=== PATIENT | male | born 1995 | race Two or more races ===

== ENCOUNTER 2016-08-30 17:35 | Inpatient (IN) | payer SELFPAY ==
[~2016-08-30] VITALS: Ht 167.6 cm; Wt 76.3 kg
--- NOTE | 2016-08-30 19:19 | PHYS DOC ---
Past Medical History Past Medical History: No Pertinent History Past Surgical History: No Surgical History Adult General Chief Complaint Chief Complaint: ABDOMINAL PAIN HPI HPI Patient is a 20 year old female who presents with abdominal pain. Patient reports earlier today he was about to have a bowel movement when he started having generalized abdominal pain, feeling like "he was ready to blow". Currently having significant sharp pain mostly in his lower abdomen. He also reports having a fever. He denies any nausea or vomiting. No diarrhea, no blood in stool. No prior similar episodes. He has tried some ibuprofen for the pain with partial relief. Review of Systems Review of Systems Constitutional: Fever Eyes: Denies change in visual acuity or eye pain HENT: Denies nasal congestion or sore throat Respiratory: Denies cough or shortness of breath Cardiovascular: Denies chest pain GI: Lower abdominal pain. Denies nausea, vomiting, bloody stools or diarrhea : Denies dysuria or hematuria Musculoskeletal: Denies back pain or joint pain Integument: Denies rash or skin lesions Neurologic: Denies headache, focal weakness or sensory changes Current Medications Current Medications Current Medications Medications (Trade) Dose Ordered Sig/Poncho Start Time Stop Time Status Last Admin Dose Admin Iohexol (Omnipaque 300 Mg/ml) 75 ml 1X ONCE 08/30/16 20:00 08/30/16 20:01 DC 08/30/16 20:57 75 ML Morphine Sulfate 4 mg 1X ONCE 08/30/16 21:45 08/30/16 21:46 DC 08/30/16 22:22 4 MG Ondansetron HCl (Zofran) 4 mg 1X ONCE 08/30/16 19:45 08/30/16 19:46 DC 08/30/16 19:57 4 MG Piperacillin Sod/ Tazobactam Sod 1 each 1 each PRN DAILY PRN 08/30/16 21:45 Piperacillin Sod/ Tazobactam Sod/ Sodium Chloride (Zosyn/Iv Sodium Chloride 0.9% 50ml) 50 ml @ 100 mls/hr Q6HRS 08/30/16 22:00 08/30/16 22:03 100 MLS/HR Sodium Chloride (Iv Sodium Chloride 0.9% 1000ml Bag) 1,000 ml @ 1,000 mls/hr Q1H 08/30/16 19:45 08/30/16 20:44 DC 08/30/16 19:58 1,000 MLS/HR Allergies Allergies Allergies Coded Allergies Type Severity Reaction Last Updated Verified No Known Drug Allergies 08/30/16 No Physical Exam Physical Exam Constitutional: Well developed, well nourished, no acute distress, non-toxic appearance HENT: Normocephalic, atraumatic, bilateral external ears normal Eyes: EOMI, conjunctiva normal, no discharge Neck: Normal range of motion, no stridor Cardiovascular: Tachycardic, regular rhythm, no murmur Lungs & Thorax: Bilateral breath sounds clear to auscultation Abdomen: Bowel sounds normal, soft, non-distended, generalized abdominal TTP most pronounced in lower abdomen, guarding present Skin: Hot to touch, dry, no erythema, no rash Extremities: No obvious deformity, no edema Neurologic: Alert and oriented X 3, no gross deficits noted Current Patient Data Vital Signs Vital Signs Date Time Temp Pulse Resp B/P Pulse Ox O2 Delivery O2 Flow Rate FiO2 08/30/16 22:00 116 22 144/71 97 Room Air 08/30/16 19:25 99.5 99.5 Lab Values Laboratory Tests Test 08/30/16 19:49 08/30/16 20:23 White Blood Count 5.8x10^3/uL (4.0-11.0) Red Blood Count 5.25x10^6/uL (4.30-5.70) Hemoglobin 16.0g/dL (13.0-17.5) Hematocrit 47.3% (39.0-53.0) Mean Corpuscular Volume 90fL (79-100) Mean Corpuscular Hemoglobin 31pg (25-35) Mean Corpuscular Hemoglobin Concent 34g/dL (31-37) Red Cell Distribution Width 12.8% (11.5-14.5) Platelet Count 205x10^3/uL (140-400) Neutrophils (%) (Auto) 77% (31-73) H Lymphocytes (%) (Auto) 13% (24-48) L Monocytes (%) (Auto) 10% (0-9) H Eosinophils (%) (Auto) 0% (0-3) Basophils (%) (Auto) 0% (0-3) Neutrophils # (Auto) 4.4x10^3uL (1.8-7.7) Lymphocytes # (Auto) 0.7x10^3/uL (1.0-4.8) L Monocytes # (Auto) 0.6x10^3/uL (0.0-1.1) Eosinophils # (Auto) 0.0x10^3/uL (0.0-0.7) Basophils # (Auto) 0.0x10^3/uL (0.0-0.2) Urine Collection Type Unknown Urine Color Jess Urine Clarity Turbid Urine pH 5.5 Urine Specific [place] 1.025 Urine Protein Tracemg/dL (NEG-TRACE) Urine Glucose (UA) Negativemg/dL (NEG) Urine Ketones (Stick) 15mg/dL (NEG) Urine Blood Trace (NEG) Urine Nitrite Negative (NEG) Urine Bilirubin Small (NEG) Urine Urobilinogen Dipstick 0.2mg/dL (0.2 mg/dL) Urine Leukocyte Esterase Trace (NEG) Urine RBC Occ/HPF (0-2) Urine WBC Occ/HPF (0-4) Urine Squamous Epithelial Cells Occ/LPF Urine Bacteria 0/HPF (0-FEW) Urine Mucus Mod/LPF Sodium Level 135mmol/L (136-145) L Potassium Level 3.8mmol/L (3.5-5.1) Chloride Level 96mmol/L (98-107) L Carbon Dioxide Level 24mmol/L (21-32) Anion Gap 15 (6-14) H Blood Urea Nitrogen 11mg/dL (8-26) Creatinine 1.2mg/dL (0.7-1.3) Estimated GFR (Cockcroft-Gault) 78.0 BUN/Creatinine Ratio 9 (6-20) Glucose Level 168mg/dL (70-99) H Calcium Level 8.9mg/dL (8.5-10.1) Total Bilirubin 0.5mg/dL (0.2-1.0) Aspartate Amino Transferase (AST) 20U/L (15-37) Alanine Aminotransferase (ALT) 27U/L (16-63) Alkaline Phosphatase 56U/L (46-116) Total Protein 7.7g/dL (6.4-8.2) Albumin 3.3g/dL (3.4-5.0) L Albumin/Globulin Ratio 0.8 (1.0-1.7) L Lipase 76U/L (73-393) Laboratory Tests 08/30/16 19:49 Laboratory Tests 08/30/16 20:23 EKG EKG [] Radiology/Procedures Radiology/Procedures CT A/P: IMPRESSION Multiple abnormal loops of small bowel and sigmoid colon with wall thickening and mucosal hyper enhancement. Small amount of pneumoperitoneum adjacent to the abnormal loop of the sigmoid colon and surrounding the liver with small amount of free fluid in the right lower quadrant and pelvis. The primary diagnostic consideration would include inflammatory bowel disease such as Crohn disease. Appendix not clearly seen. Course & Med Decision Making Course & Med Decision Making Pertinent Labs and Imaging studies reviewed. (See chart for details) Patient is 20-year-old male who presents with abdominal pain. Will obtain CT abdomen/pelvis to rule out appendicitis. Labs, UA also ordered. IV fluids, pain medication, nausea medication ordered for relief of symptoms. Labs largely unremarkable except for few electrolyte abnormalities. No leukocytosis. Abnormal CT scan, read as above. Dose of Zosyn ordered. I spoke with Dr. Scott , who will evaluate patient. Discussed results with patient and family. Discussed with Dr. Pearce, will admit under his care for further evaluation and treatment. GI consult also placed. Dragon Disclaimer Dragon Disclaimer This electronic medical record was generated, in whole or in part, using a voice recognition dictation system. Departure Departure Impression: Primary Impression: Abdominal pain Additional Impression: Pneumoperitoneum Disposition: ADMITTED INPATIENT Admitting Physician: Sarah Pearce Condition: GUARDED Referrals: OLGA MENDOZA (PCP) Problem Qualifiers BLANCA SANDOVAL MD Aug 30, 2016 19:18
[2016-08-30] MEDS ORDERED: IV NORMAL SALINE 1000ML BAG 1,000 ML IV SCH (19:45)
[2016-08-30] MEDS ORDERED: ONDANSETRON PF 4 MG/2 ML VIAL. IV ONE (19:45)
[2016-08-30] MEDS ORDERED: MORPHINE SULFATE 4 MG/ML DISP.SYRIN. IV ONE ×2 (19:45→21:45)
[2016-08-30 19:57] LABS: BILIRUBIN,URINE SMALL (NEG); GLUCOSE,URINE NEGATIVE (NEG); NITRITE,URINE NEGATIVE (NEG); PH,URINE 5.5; UROBILINOGEN,URINE 0.2 mg/dL (0.2 mg/dL)
[2016-08-30] MEDS ORDERED: IOHEXOL 300 MG/ML 75 ML VIAL IV ONE (20:00)
[2016-08-30 20:02] LABS: BASO % 0 % (0-3); EOS % 0 % (0-3); HEMATOCRIT 47.3 % (39.0-53.0); LYMPH # 0.7 x10^3/uL (1.0-4.8); LYMPH % 13 % (24-48); MEAN CORPUSCULAR HEMOGLOBIN 31 pg (25-35); MEAN CORPUSCULAR HGB CONC 34 g/dL (31-37); MEAN CORPUSCULAR VOLUME 90 fL (79-100); MONO % 10 % (0-9); NEUT % 77 % (31-73); PLATELET COUNT 205 x10^3/uL (140-400); RED BLOOD COUNT 5.25 x10^6/uL (4.30-5.70); RED CELL DISTRIBUTION WIDTH 12.8 % (11.5-14.5); WHITE BLOOD COUNT 5.8 x10^3/uL (4.0-11.0)
[2016-08-30 20:08] LABS: BACTERIA,URINE 0 /HPF (0-FEW); PROTEIN,URINE TRACE mg/dL (NEG-TRACE); RBC,URINE OCC /HPF (0-2); SQUAMOUS EPITHELIAL CELL,UR OCC /LPF; WBC,URINE OCC /HPF (0-4)
[2016-08-30 20:36] LABS: CALCIUM 8.9 mg/dL (8.5-10.1); CREATININE 1.2 mg/dL (0.7-1.3); POTASSIUM 3.8 mmol/L (3.5-5.1)
[2016-08-30 20:43] LABS: ALBUMIN 3.3 g/dL (3.4-5.0); ALBUMIN/GLOBULIN RATIO 0.8 (1.0-1.7); TOTAL BILIRUBIN 0.5 mg/dL (0.2-1.0); TOTAL PROTEIN 7.7 g/dL (6.4-8.2)
--- NOTE | 2016-08-30 21:39 | RAD ---
PROCEDURE CT abdomen pelvis with contrast. HISTORY Severe generalized abdominal pain since this afternoon TECHNIQUE Contiguous helical acquisitions are obtained through the abdomen and pelvis during intravenous administration of 75 cc of Omnipaque 300. Sagittal and coronal re-formatted images are obtained and reviewed. COMPARISON None available. FINDINGS Small amount of pneumoperitoneum with free air surrounding the liver. Multiple abnormal appearing small bowel loops are seen in the central abdomen with wall thickening and mucosal hyper enhancement. There is small amount of free fluid in the right lower quadrant. Appendix is not separately identified. A short segment of sigmoid colon in the lower mid abdomen appears grossly abnormal with diffuse wall thickening and significant inflammatory changes. There are few pockets of free air adjacent to this loop of abnormal sigmoid colon. Small amount of free fluid. The lung bases are essentially clear. The visualized heart is normal. The liver, spleen, pancreas and gallbladder are normal. Both adrenal glands and bilateral kidneys are normal in size with symmetric excretion of contrast via both kidneys. No hydronephrosis or nephrolithiasis. The urinary bladder is partially decompressed. The prostate gland, seminal vesicles are normal. Bones are unremarkable. IMPRESSION Multiple abnormal loops of small bowel and sigmoid colon with wall thickening and mucosal hyper enhancement. Small amount of pneumoperitoneum adjacent to the abnormal loop of the sigmoid colon and surrounding the liver with small amount of free fluid in the right lower quadrant and pelvis. The primary diagnostic consideration would include inflammatory bowel disease such as Crohn disease. Appendix not clearly seen. The results were discussed with Dr. Masoud Morris in the emergency room soon after completion of the study. Electronically signed by: Alicia Mann MD (Aug 30, 2016 21:38:08)
[2016-08-30] MEDS ORDERED: PIP/TAZO PER PHARMACY MC PRN (21:45)
[2016-08-30] MEDS: PIPERACILLIN/TAZOBACTAM 3.375 GM in IV NORMAL SALINE 50ML 50 ML IV SCH (22:03)
--- NOTE | 2016-08-30 22:26 | ACF ---
Admission Forms Criteria ABDOMINAL PAIN Clinical Indications for Admission to Inpatient Care (Place 'X' for any and all applicable criteria): Admission is indicated for ANY ONE of the following(1)(2)(3)(4)(5): [X]I. Inpatient admission required rather than observation care (Also use Abdominal Pain: Observation Care, as appropriate) because of ANY ONE of the following: [ ]a) Severe pain requiring acute inpatient management [ ]b) Identification of etiology/finding that requires inpatient care (eg, aortic dissection, free air) [ ]c) Absent bowel sounds with complete ileus(6) [ ]d) Suspected toxic megacolon [ ]e) Severe electrolyte abnormalities requiring inpatient care [ ]f) High fever or infection requiring inpatient admission as indicated by ANY ONE of following(7)(8): [ ] i) Appropriate outpatient or observational care antimicrobial treatment unavailable, not effective, or not feasible [ ] ii) Documented bacteremia [ ] iii) Temperature > 104.9 degrees F (oral) [ ] iv) T >103.1 F (oral) or < 96.8 F(rectal) that does not respond to all emergency treatment measures [ ]g) Signs of intestinal obstruction [B] [ ]h) Hemodynamic instability [ ]i) IV fluid to replace significant ongoing losses (greater than 3 L/m2 per day) (12)(13) [ ]j) Percutaneous or open drainage (eg, abscess, biliary tract ) procedures [ ]k) Parenteral nutrition regimen that must be implemented on inpatient basis [X]l) Other condition,treatment or monitoring requiring inpatient admission. [ ]II. Peritoneal signs present [ ]III. Surgery needed that cannot be performed on an ambulatory basis. [ ]IV. Evaluation requires patient to not eat or drink for extended period ( eg, more than 24 hours). [ ]V. Contraindications and/or Inappropriate clinical situations for Observational Care in patients with abdominal pain, when ANY ONE of the following is required: [ ]a) Thorough evaluation is required to prevent catastrophic events due to delays in diagnosing (e.g.Mesenteric ischemia) 1,3 [ ]b) Patient with severe pathology or with chronic symptoms unlikely to improve in the ED stay (3) [ ]. General contraindications and/or Inappropriate clinical situations for Observational Care in patients with abdominal pain, when ANY ONE of the following is required: [ ]a) Prediction of prolongation of LOS based on ANY ONE of the following may be considered as a contraindication for observational care 2, 3, 4, 5, 6, 7, 8, 9, 10, 11 [ ]i) Age > 65 yrs. [ ]ii) Patient arriving by ambulance [ ]iii) Patient with high acuity [ ]iv) Patient requiring vital sign monitoring [ ]v) Patient on IV medication [ ]b) Systolic blood pressures 180mmHg 3,12 [ ]c) Patient with altered mental status including delirium and other alteration of consciousness, (3) [ ]d) Patient whose discharge disposition will be to a [facility]ci home or rehabilitation home should not be managed in Emergency Department Observation Unit. CMS rule requires 3 days hospital stay before such placement.3,13 [ ]e) Patient with failure to thrive due to broad array of etiologies 3,16,17 [ ]f) Inability to ambulate 3,14 Extended stay beyond goal length of stay may be needed for(2)(3): [ ]a) Persistent abdominal pain with suspected intra-abdominal process [ ]b) Diagnosed condition requiring continued stay (e.g., pancreatitis, complicated diverticulitis) [ ]c) Surgery (e.g., colectomy) The original [employer] content created by [employer] has been revised. The portions of the content which have been revised are identified through the use of italic text or in bold, and [facility] has neither reviewed nor approved the modified material.All other unmodified content is copyright [employer]. Please see references footnoted in the original [employer] edition 2016 Admission Criteria Met?: Yes ANITHA JOYNER Aug 30, 2016 22:26
[2016-08-30] MEDS: IV NORMAL SALINE 1000ML BAG 1,000 ML IV SCH (22:30)
[2016-08-30] MEDS ORDERED: ONDANSETRON PF 4 MG/2 ML VIAL. IV PRN (22:30)
[2016-08-30] MEDS ORDERED: ACETAMINOPHEN 325 MG TABLET. PO PRN (22:30)
[2016-08-30] MEDS ORDERED: MORPHINE SULFATE 4 MG/ML DISP.SYRIN. IV PRN (22:30)
[2016-08-30 22:45] VITALS: BP 100/72
--- NOTE | 2016-08-30 23:37 | PDOC2 ---
CONSULT Date of Consult Date of Consult DATE: 08/30/16 TIME: 23:35 Current Problem List Problem List Problems Medical Problems: (1) Abdominal pain Status: Acute (2) Pneumoperitoneum Status: Acute Current Medications Current Medications Current Medications Sodium Chloride (Iv Sodium Chloride 0.9% 1000ml Bag) 1,000 ml @ 1,000 mls/hr Q1H IV Last administered on 08/30/16 19:58; Start 08/30/16 at 19:45; Stop 07/06 at 20:44; Status DC Morphine Sulfate 4 mg 1X ONCE IV Last administered on 08/30/16 19:58; Start 08/30/16 at 19:45; Stop 08/30/16 at 19:46; Status DC Ondansetron HCl (Zofran) 4 mg 1X ONCE IV Last administered on 08/30/16 19:57 ; Start 08/30/16 at 19:45; Stop 08/30/16 at 19:46; Status DC Iohexol (Omnipaque 300 Mg/ml) 75 ml 1X ONCE IV Last administered on 08/30/16 20:57; Start 08/30/16 at 20:00; Stop 08/30/16 at 20:01; Status DC Morphine Sulfate 4 mg 1X ONCE IV Last administered on 08/30/16 22:22; Start 08/30/16 at 21:45; Stop 08/30/16 at 21:46; Status DC Piperacillin Sod/ Tazobactam Sod 1 each 1 each PRN DAILY PRN MC SEE COMMENTS; Start 08/30/16 at 21:45 Piperacillin Sod/ Tazobactam Sod/ Sodium Chloride (Zosyn/Iv Sodium Chloride 0.9 % 50ml) 50 ml @ 100 mls/hr Q6HRS IV Last administered on 08/30/16 22:03; Start 08/30/16 at 22:00 Ondansetron HCl (Zofran) 4 mg PRN Q8HRS PRN IV NAUSEA/VOMITING; Start 08/30/16 at 22:30; Stop 08/31/16 at 22:29 Morphine Sulfate 4 mg 4 mg PRN Q2HR PRN IV PAIN Last administered on 08/30/16 23:16; Start 08/30/16 at 22:30; Stop 08/31/16 at 22:29 Sodium Chloride (Iv Sodium Chloride 0.9% 1000ml Bag) 1,000 ml @ 125 mls/hr Q8H IV ; Start 08/30/16 at 22:30; Stop 08/31/16 at 22:29 Acetaminophen (Tylenol) 650 mg PRN Q4HRS PRN PO FEVER Last administered on 08/30t 23:15; Start 08/30/16 at 22:30; Stop 08/31/16 at 22:29 Allergies Allergies: Coded Allergies: No Known Drug Allergies (Unverified , 08/30/16) Vitals VITALS Vital Signs Date Time Temp Pulse Resp B/P Pulse Ox O2 Delivery O2 Flow Rate FiO2 08/30/16 23:16 93 08/30/16 22:45 102.9 107 20 100/72 Room Air 102.9 Labs Labs Laboratory Tests Test 08/30/16 19:49 08/30/16 20:23 08/30/16 22:30 White Blood Count 5.8x10^3/uL (4.0-11.0) Red Blood Count 5.25x10^6/uL (4.30-5.70) Hemoglobin 16.0g/dL (13.0-17.5) Hematocrit 47.3% (39.0-53.0) Mean Corpuscular Volume 90fL (79-100) Mean Corpuscular Hemoglobin 31pg (25-35) Mean Corpuscular Hemoglobin Concent 34g/dL (31-37) Red Cell Distribution Width 12.8% (11.5-14.5) Platelet Count 205x10^3/uL (140-400) Neutrophils (%) (Auto) 77% (31-73) Lymphocytes (%) (Auto) 13% (24-48) Monocytes (%) (Auto) 10% (0-9) Eosinophils (%) (Auto) 0% (0-3) Basophils (%) (Auto) 0% (0-3) Neutrophils # (Auto) 4.4x10^3uL (1.8-7.7) Lymphocytes # (Auto) 0.7x10^3/uL (1.0-4.8) Monocytes # (Auto) 0.6x10^3/uL (0.0-1.1) Eosinophils # (Auto) 0.0x10^3/uL (0.0-0.7) Basophils # (Auto) 0.0x10^3/uL (0.0-0.2) Urine Collection Type Unknown Urine Color Jess Urine Clarity Turbid Urine pH 5.5 Urine Specific [place] 1.025 Urine Protein Tracemg/dL (NEG-TRACE) Urine Glucose (UA) Negativemg/dL (NEG) Urine Ketones (Stick) 15mg/dL (NEG) Urine Blood Trace (NEG) Urine Nitrite Negative (NEG) Urine Bilirubin Small (NEG) Urine Urobilinogen Dipstick 0.2mg/dL (0.2 mg/dL) Urine Leukocyte Esterase Trace (NEG) Urine RBC Occ/HPF (0-2) Urine WBC Occ/HPF (0-4) Urine Squamous Epithelial Cells Occ/LPF Urine Bacteria 0/HPF (0-FEW) Urine Mucus Mod/LPF Sodium Level 135mmol/L (136-145) Potassium Level 3.8mmol/L (3.5-5.1) Chloride Level 96mmol/L (98-107) Carbon Dioxide Level 24mmol/L (21-32) Anion Gap 15 (6-14) Blood Urea Nitrogen 11mg/dL (8-26) Creatinine 1.2mg/dL (0.7-1.3) Estimated GFR (Cockcroft-Gault) 78.0 BUN/Creatinine Ratio 9 (6-20) Glucose Level 168mg/dL (70-99) Calcium Level 8.9mg/dL (8.5-10.1) Total Bilirubin 0.5mg/dL (0.2-1.0) Aspartate Amino Transf (AST/SGOT) 20U/L (15-37) Alanine Aminotransferase (ALT/SGPT) 27U/L (16-63) Alkaline Phosphatase 56U/L (46-116) Total Protein 7.7g/dL (6.4-8.2) Albumin 3.3g/dL (3.4-5.0) Albumin/Globulin Ratio 0.8 (1.0-1.7) Lipase 76U/L (73-393) Lactic Acid Level 1.8mmol/L (0.4-2.0) Laboratory Tests Test 08/30/16 19:49 08/30/16 20:23 08/30/16 22:30 White Blood Count 5.8x10^3/uL (4.0-11.0) Red Blood Count 5.25x10^6/uL (4.30-5.70) Hemoglobin 16.0g/dL (13.0-17.5) Hematocrit 47.3% (39.0-53.0) Mean Corpuscular Volume 90fL (79-100) Mean Corpuscular Hemoglobin 31pg (25-35) Mean Corpuscular Hemoglobin Concent 34g/dL (31-37) Red Cell Distribution Width 12.8% (11.5-14.5) Platelet Count 205x10^3/uL (140-400) Neutrophils (%) (Auto) 77% (31-73) Lymphocytes (%) (Auto) 13% (24-48) Monocytes (%) (Auto) 10% (0-9) Eosinophils (%) (Auto) 0% (0-3) Basophils (%) (Auto) 0% (0-3) Neutrophils # (Auto) 4.4x10^3uL (1.8-7.7) Lymphocytes # (Auto) 0.7x10^3/uL (1.0-4.8) Monocytes # (Auto) 0.6x10^3/uL (0.0-1.1) Eosinophils # (Auto) 0.0x10^3/uL (0.0-0.7) Basophils # (Auto) 0.0x10^3/uL (0.0-0.2) Urine Collection Type Unknown Urine Color Jess Urine Clarity Turbid Urine pH 5.5 Urine Specific [place] 1.025 Urine Protein Tracemg/dL (NEG-TRACE) Urine Glucose (UA) Negativemg/dL (NEG) Urine Ketones (Stick) 15mg/dL (NEG) Urine Blood Trace (NEG) Urine Nitrite Negative (NEG) Urine Bilirubin Small (NEG) Urine Urobilinogen Dipstick 0.2mg/dL (0.2 mg/dL) Urine Leukocyte Esterase Trace (NEG) Urine RBC Occ/HPF (0-2) Urine WBC Occ/HPF (0-4) Urine Squamous Epithelial Cells Occ/LPF Urine Bacteria 0/HPF (0-FEW) Urine Mucus Mod/LPF Sodium Level 135mmol/L (136-145) Potassium Level 3.8mmol/L (3.5-5.1) Chloride Level 96mmol/L (98-107) Carbon Dioxide Level 24mmol/L (21-32) Anion Gap 15 (6-14) Blood Urea Nitrogen 11mg/dL (8-26) Creatinine 1.2mg/dL (0.7-1.3) Estimated GFR (Cockcroft-Gault) 78.0 BUN/Creatinine Ratio 9 (6-20) Glucose Level 168mg/dL (70-99) Calcium Level 8.9mg/dL (8.5-10.1) Total Bilirubin 0.5mg/dL (0.2-1.0) Aspartate Amino Transf (AST/SGOT) 20U/L (15-37) Alanine Aminotransferase (ALT/SGPT) 27U/L (16-63) Alkaline Phosphatase 56U/L (46-116) Total Protein 7.7g/dL (6.4-8.2) Albumin 3.3g/dL (3.4-5.0) Albumin/Globulin Ratio 0.8 (1.0-1.7) Lipase 76U/L (73-393) Lactic Acid Level 1.8mmol/L (0.4-2.0) Assessment/Plan Assessment/Plan FND rec:gut rest, IV fluids, antibiocs, GI consult, close observation Thanks for consult Wk # [id number] RODRIGUE LÓPEZ MD Aug 30, 2016 23:37
--- NOTE | 2016-08-30 23:40 | PDOC1 ---
History and Physical Date of Admission Date of Admission DATE: 08/30/16 TIME: 23:39 Identification/Chief Complaint Chief Complaint abd pain Source Source: Chart review, Patient History of Present Illness History of Present Illness Mr. 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 Acute pain with a bowel movement when he started having generalized abdominal pain, bloating and nausea. Currently having significant sharp pain mostly in his lower abdomen. Better with IV pain meds Subj fever today as well . He denies any nausea or vomiting. No diarrhea, no blood in stool.\ . Past Medical History Cardiovascular: No pertinent hx Pulmonary: No pertinent hx GI: No pertinent hx Psych: No pertinent hx Rheumatologic: No pertinent hx Infectious disease: No pertinent hx Past Surgical History Past Surgical History: No pertinent history Family History Family History: No Significant Social History Smoke: No ALCOHOL: none Current Problem List Problem List Problems Medical Problems: (1) Abdominal pain Status: Acute (2) Pneumoperitoneum Status: Acute Problems: Current Medications Current Medications Current Medications Sodium Chloride (Iv Sodium Chloride 0.9% 1000ml Bag) 1,000 ml @ 1,000 mls/hr Q1H IV Last administered on 08/30/16 19:58; Start 08/30/16 at 19:45; Stop 07/06 at 20:44; Status DC Morphine Sulfate 4 mg 1X ONCE IV Last administered on 08/30/16 19:58; Start 08/30/16 at 19:45; Stop 08/30/16 at 19:46; Status DC Ondansetron HCl (Zofran) 4 mg 1X ONCE IV Last administered on 08/30/16 19:57 ; Start 08/30/16 at 19:45; Stop 08/30/16 at 19:46; Status DC Iohexol (Omnipaque 300 Mg/ml) 75 ml 1X ONCE IV Last administered on 08/30/16 20:57; Start 08/30/16 at 20:00; Stop 08/30/16 at 20:01; Status DC Morphine Sulfate 4 mg 1X ONCE IV Last administered on 08/30/16 22:22; Start 08/30/16 at 21:45; Stop 08/30/16 at 21:46; Status DC Piperacillin Sod/ Tazobactam Sod 1 each 1 each PRN DAILY PRN MC SEE COMMENTS; Start 08/30/16 at 21:45 Piperacillin Sod/ Tazobactam Sod/ Sodium Chloride (Zosyn/Iv Sodium Chloride 0.9 % 50ml) 50 ml @ 100 mls/hr Q6HRS IV Last administered on 08/30/16 22:03; Start 08/30/16 at 22:00 Ondansetron HCl (Zofran) 4 mg PRN Q8HRS PRN IV NAUSEA/VOMITING; Start 08/30/16 at 22:30; Stop 08/31/16 at 22:29 Morphine Sulfate 4 mg 4 mg PRN Q2HR PRN IV PAIN Last administered on 08/30/16 23:16; Start 08/30/16 at 22:30; Stop 08/31/16 at 22:29 Sodium Chloride (Iv Sodium Chloride 0.9% 1000ml Bag) 1,000 ml @ 125 mls/hr Q8H IV Last administered on 08/30/16 22:30; Start 08/30/16 at 22:30; Stop at 22:29 Acetaminophen 650 mg 650 mg PRN Q4HRS PRN PO FEVER Last administered on 23:15; Start 08/30/16 at 22:30; Stop 08/31/16 at 22:29 Hydromorphone HCl (Dilaudid Standard [employer]) 30 ml @ 0 mls/hr CONT PRN PRN IV PROTOCOL; Start 08/30/16 at 23:30; Status UNV Allergies Allergies: Coded Allergies: No Known Drug Allergies (Unverified , 08/30/16) ROS General: YES: Appetite, Chills, Fatigue, Malaise, No: Night Sweats, Other PSYCHOLOGICAL ROS: No: Anxiety, Behavioral Disorder, Concentration difficultie , Decreased libido, Depression, Disorientation, Hallucinations, Hostility, Irritablity, Memory difficulties, Mood Swings, Obsessive thoughts, Other, Physical abuse, Sexual abuse, Sleep disturbances, Suicidal ideation Eyes: No Blurry vision, No Decreased vision, No Double vision, No Dry eyes, No Excessive tearing, No Eye Pain, No Itchy Eyes, No Loss of vision, No Other, No Photophobia, No Scotomata, No Uses contacts, No Uses glasses ALLERGY AND IMMUNOLOGY: No: Hives, Insect Bite Sensitivity, Itchy/Watery Eyes, Nasal Congestion, Other, Post Nasal Drip, Seasonal Allergies Respiratory: No: Cough, Hemoptysis, Orthopnea, Other, Pleuritic Pain, SOB with excertion, Shortness of breath, Sputum Changes, Stridor, Tachypnea, Wheezing Cardiovascular: No Chest Pain, No Edema, No Lt Headedness, No Orthopnea, No Other, No Palpitations, No Paroxysmal Noc. Dyspnea Gastrointestinal: Yes Abdominal Pain (pressure?), Yes Nausea, No Constipation, No Diarrhea, No Hematochezia, No Melena, No Other, No Vomiting Genitourinary: No , No , No , No , No , No , No , No Discharge, No Dysuria, No Flank Pain, No Frequency, No Hematuria, No Incontinence, No Other, No Pain, No Retention, No Urgency Musculoskeletal: No Gait Disturbance, No Joint Pain, No Joint Stiffness, No Joint Swelling, No Muscle Pain, No Muscular Weakness, No Other, No Pain In:, No Swelling In: Neurological: No Behavorial Changes, No Bowel/Bladder ControlChng, No Confusion , No Dizziness, No Gait Disturbance, No Headaches, No Impaired Coord/balance, No Memory Loss, No Numbness/Tingling, No Other, No Seizures, No Speech Problems , No Tremors, No Visual Changes, No Weakness Skin: No Acne, No Dry Skin, No Eczema, No Hair Changes, No Lumps, No Mole Changes, No Mottling, No Nail Changes, No Other, No Pruritus, No Rash, No Skin Lesion Changes Physical Exam General: Alert, Cooperative, mild distress, moderate distress HEENT: EOMI, Mucous membr. moist/pink Lungs: Normal air movement Heart: S1S2, no murmurs Abdomen: Soft (tender diffusely, scant sounds) Extremities: No clubbing, No cyanosis, No edema, Normal pulses Skin: No rashes, No breakdown Neuro: Sensation intact, Cranial nerves 3-12 NL Psych/Mental Status: Mood NL Vitals Vitals Vital Signs Date Time Temp Pulse Resp B/P Pulse Ox O2 Delivery O2 Flow Rate FiO2 08/30/16 23:16 93 08/30/16 22:45 102.9 107 20 100/72 Room Air 102.9 Labs Labs Laboratory Tests Test 08/30/16 19:49 08/30/16 20:23 08/30/16 22:30 White Blood Count 5.8x10^3/uL (4.0-11.0) Red Blood Count 5.25x10^6/uL (4.30-5.70) Hemoglobin 16.0g/dL (13.0-17.5) Hematocrit 47.3% (39.0-53.0) Mean Corpuscular Volume 90fL (79-100) Mean Corpuscular Hemoglobin 31pg (25-35) Mean Corpuscular Hemoglobin Concent 34g/dL (31-37) Red Cell Distribution Width 12.8% (11.5-14.5) Platelet Count 205x10^3/uL (140-400) Neutrophils (%) (Auto) 77% (31-73) Lymphocytes (%) (Auto) 13% (24-48) Monocytes (%) (Auto) 10% (0-9) Eosinophils (%) (Auto) 0% (0-3) Basophils (%) (Auto) 0% (0-3) Neutrophils # (Auto) 4.4x10^3uL (1.8-7.7) Lymphocytes # (Auto) 0.7x10^3/uL (1.0-4.8) Monocytes # (Auto) 0.6x10^3/uL (0.0-1.1) Eosinophils # (Auto) 0.0x10^3/uL (0.0-0.7) Basophils # (Auto) 0.0x10^3/uL (0.0-0.2) Urine Collection Type Unknown Urine Color Jess Urine Clarity Turbid Urine pH 5.5 Urine Specific [place] 1.025 Urine Protein Tracemg/dL (NEG-TRACE) Urine Glucose (UA) Negativemg/dL (NEG) Urine Ketones (Stick) 15mg/dL (NEG) Urine Blood Trace (NEG) Urine Nitrite Negative (NEG) Urine Bilirubin Small (NEG) Urine Urobilinogen Dipstick 0.2mg/dL (0.2 mg/dL) Urine Leukocyte Esterase Trace (NEG) Urine RBC Occ/HPF (0-2) Urine WBC Occ/HPF (0-4) Urine Squamous Epithelial Cells Occ/LPF Urine Bacteria 0/HPF (0-FEW) Urine Mucus Mod/LPF Sodium Level 135mmol/L (136-145) Potassium Level 3.8mmol/L (3.5-5.1) Chloride Level 96mmol/L (98-107) Carbon Dioxide Level 24mmol/L (21-32) Anion Gap 15 (6-14) Blood Urea Nitrogen 11mg/dL (8-26) Creatinine 1.2mg/dL (0.7-1.3) Estimated GFR (Cockcroft-Gault) 78.0 BUN/Creatinine Ratio 9 (6-20) Glucose Level 168mg/dL (70-99) Calcium Level 8.9mg/dL (8.5-10.1) Total Bilirubin 0.5mg/dL (0.2-1.0) Aspartate Amino Transf (AST/SGOT) 20U/L (15-37) Alanine Aminotransferase (ALT/SGPT) 27U/L (16-63) Alkaline Phosphatase 56U/L (46-116) Total Protein 7.7g/dL (6.4-8.2) Albumin 3.3g/dL (3.4-5.0) Albumin/Globulin Ratio 0.8 (1.0-1.7) Lipase 76U/L (73-393) Lactic Acid Level 1.8mmol/L (0.4-2.0) Laboratory Tests Test 08/30/16 19:49 08/30/16 20:23 08/30/16 22:30 White Blood Count 5.8x10^3/uL (4.0-11.0) Red Blood Count 5.25x10^6/uL (4.30-5.70) Hemoglobin 16.0g/dL (13.0-17.5) Hematocrit 47.3% (39.0-53.0) Mean Corpuscular Volume 90fL (79-100) Mean Corpuscular Hemoglobin 31pg (25-35) Mean Corpuscular Hemoglobin Concent 34g/dL (31-37) Red Cell Distribution Width 12.8% (11.5-14.5) Platelet Count 205x10^3/uL (140-400) Neutrophils (%) (Auto) 77% (31-73) Lymphocytes (%) (Auto) 13% (24-48) Monocytes (%) (Auto) 10% (0-9) Eosinophils (%) (Auto) 0% (0-3) Basophils (%) (Auto) 0% (0-3) Neutrophils # (Auto) 4.4x10^3uL (1.8-7.7) Lymphocytes # (Auto) 0.7x10^3/uL (1.0-4.8) Monocytes # (Auto) 0.6x10^3/uL (0.0-1.1) Eosinophils # (Auto) 0.0x10^3/uL (0.0-0.7) Basophils # (Auto) 0.0x10^3/uL (0.0-0.2) Urine Collection Type Unknown Urine Color Jess Urine Clarity Turbid Urine pH 5.5 Urine Specific [place] 1.025 Urine Protein Tracemg/dL (NEG-TRACE) Urine Glucose (UA) Negativemg/dL (NEG) Urine Ketones (Stick) 15mg/dL (NEG) Urine Blood Trace (NEG) Urine Nitrite Negative (NEG) Urine Bilirubin Small (NEG) Urine Urobilinogen Dipstick 0.2mg/dL (0.2 mg/dL) Urine Leukocyte Esterase Trace (NEG) Urine RBC Occ/HPF (0-2) Urine WBC Occ/HPF (0-4) Urine Squamous Epithelial Cells Occ/LPF Urine Bacteria 0/HPF (0-FEW) Urine Mucus Mod/LPF Sodium Level 135mmol/L (136-145) Potassium Level 3.8mmol/L (3.5-5.1) Chloride Level 96mmol/L (98-107) Carbon Dioxide Level 24mmol/L (21-32) Anion Gap 15 (6-14) Blood Urea Nitrogen 11mg/dL (8-26) Creatinine 1.2mg/dL (0.7-1.3) Estimated GFR (Cockcroft-Gault) 78.0 BUN/Creatinine Ratio 9 (6-20) Glucose Level 168mg/dL (70-99) Calcium Level 8.9mg/dL (8.5-10.1) Total Bilirubin 0.5mg/dL (0.2-1.0) Aspartate Amino Transf (AST/SGOT) 20U/L (15-37) Alanine Aminotransferase (ALT/SGPT) 27U/L (16-63) Alkaline Phosphatase 56U/L (46-116) Total Protein 7.7g/dL (6.4-8.2) Albumin 3.3g/dL (3.4-5.0) Albumin/Globulin Ratio 0.8 (1.0-1.7) Lipase 76U/L (73-393) Lactic Acid Level 1.8mmol/L (0.4-2.0) VTE Prophylaxis Ordered VTE Prophylaxis Devices: Yes VTE Pharmacological Prophylaxi: No Assessment/Plan Assessment/Plan Acute abd pain colitis, or microperf abdomnial pain consult gen surg and GI to follow NPO in AM, IV fluid CHELY BUSTILLO MD Aug 30, 2016 23:40
[2016-08-31] MEDS: HYDROMORPHONE STANDARD PCA 30 ML IV PRN (02:52)
[2016-08-31 03:00] VITALS: BP 117/78
[2016-08-31] MEDS: PIPERACILLIN/TAZOBACTAM 3.375 GM in IV NORMAL SALINE 50ML 50 ML IV SCH ×3 (06:27→17:22)
[2016-08-31 06:35] LABS: BASO % 0 % (0-3); EOS % 1 % (0-3); LYMPH # 0.6 x10^3/uL (1.0-4.8); LYMPH % 10 % (24-48); MEAN CORPUSCULAR HEMOGLOBIN 30 pg (25-35); MEAN CORPUSCULAR HGB CONC 33 g/dL (31-37); MEAN CORPUSCULAR VOLUME 91 fL (79-100); MONO % 9 % (0-9); NEUT % 81 % (31-73); PLATELET COUNT 171 x10^3/uL (140-400); RED BLOOD COUNT 4.96 x10^6/uL (4.30-5.70); RED CELL DISTRIBUTION WIDTH 12.8 % (11.5-14.5); WHITE BLOOD COUNT 5.9 x10^3/uL (4.0-11.0)
[2016-08-31 06:53] LABS: CALCIUM 8.2 mg/dL (8.5-10.1); CREATININE 1.1 mg/dL (0.7-1.3); GFR 86.2; POTASSIUM 3.7 mmol/L (3.5-5.1)
[2016-08-31 07:00] VITALS: BP 110/79
[2016-08-31] MEDS: IV NORMAL SALINE 1000ML BAG 1,000 ML IV SCH (09:13)
--- NOTE | 2016-08-31 09:28 | PDOC2 ---
GI CONSULT Reason For Consult: Bowel inflammation, pneumoperitoneum HPI: HPI: 20 y/o male who reports abdominal pain (seems mostly lower from LLQ to RLQ) began 08/24/16 w/o precipitating events. Pain was much worse yesterday prompting ER evaluation. Pain has been associated w/ what he describes "constipation and diarrhea." He feels the urge to stool but only produces a small amount of very loose stool w/ straining. Denies prodrome/similar symptoms previous. No heartburn/reflux, change in appetite, weight loss, bleeding, or NSAID use. CT A/P w/ IV contrast showed multiple abnormal loops of small bowel and sigmoid colon with wall thickening and small amount of pneumoperitoneum adjacent to the abnormal loop of the sigmoid colon and surrounding the liver with small amount of free fluid in the right lower quadrant and pelvis (possible IBD/Crohn's). Dr. Scott is following; the patient is NPO w/ SECURITY GUARD DISPATCHER pump and on IV antibiotics. PMH: PMH: Denies. FH: Family History: No pertinent hx (denies GI history including cancer and IBD) Social History: Smoke: No ALCOHOL: none Drugs: None ROS: GEN: Denies fevers, chills, sweats HEENT: Denies blurred vision, sore throat CV: Denies chest pain RESP: Denies shortness of air, cough GI: Per HPI : Denies hematuria, dysuria ENDO: Denies weight changes NEURO: Denies confusion, dizziness MSK: Denies weakness, joint pain/swelling SKIN: Denies jaundice, pruritus VItals: Vitals: Vital Signs Date Time Temp Pulse Resp B/P Pulse Ox O2 Delivery O2 Flow Rate FiO2 08/31/16 07:00 97.5 130 20 110/79 95 Room Air 97.5 Labs: Labs: Laboratory Tests Test 08/30/16 19:49 08/30/16 20:23 08/30/16 22:30 08/31/16 06:15 White Blood Count 5.8x10^3/uL (4.0-11.0) 5.9x10^3/uL (4.0-11.0) Red Blood Count 5.25x10^6/uL (4.30-5.70) 4.96x10^6/uL (4.30-5.70) Hemoglobin 16.0g/dL (13.0-17.5) 15.0g/dL (13.0-17.5) Hematocrit 47.3% (39.0-53.0) 45.0% (39.0-53.0) Mean Corpuscular Volume 90fL (79-100) 91fL (79-100) Mean Corpuscular Hemoglobin 31pg (25-35) 30pg (25-35) Mean Corpuscular Hemoglobin Concent 34g/dL (31-37) 33g/dL (31-37) Red Cell Distribution Width 12.8% (11.5-14.5) 12.8% (11.5-14.5) Platelet Count 205x10^3/uL (140-400) 171x10^3/uL (140-400) Neutrophils (%) (Auto) 77% (31-73) 81% (31-73) Lymphocytes (%) (Auto) 13% (24-48) 10% (24-48) Monocytes (%) (Auto) 10% (0-9) 9% (0-9) Eosinophils (%) (Auto) 0% (0-3) 1% (0-3) Basophils (%) (Auto) 0% (0-3) 0% (0-3) Neutrophils # (Auto) 4.4x10^3uL (1.8-7.7) 4.8x10^3uL (1.8-7.7) Lymphocytes # (Auto) 0.7x10^3/uL (1.0-4.8) 0.6x10^3/uL (1.0-4.8) Monocytes # (Auto) 0.6x10^3/uL (0.0-1.1) 0.5x10^3/uL (0.0-1.1) Eosinophils # (Auto) 0.0x10^3/uL (0.0-0.7) 0.0x10^3/uL (0.0-0.7) Basophils # (Auto) 0.0x10^3/uL (0.0-0.2) 0.0x10^3/uL (0.0-0.2) Urine Collection Type Unknown Urine Color Jess Urine Clarity Turbid Urine pH 5.5 Urine Specific [place] 1.025 Urine Protein Tracemg/dL (NEG-TRACE) Urine Glucose (UA) Negativemg/dL (NEG) Urine Ketones (Stick) 15mg/dL (NEG) Urine Blood Trace (NEG) Urine Nitrite Negative (NEG) Urine Bilirubin Small (NEG) Urine Urobilinogen Dipstick 0.2mg/dL (0.2 mg/dL) Urine Leukocyte Esterase Trace (NEG) Urine RBC Occ/HPF (0-2) Urine WBC Occ/HPF (0-4) Urine Squamous Epithelial Cells Occ/LPF Urine Bacteria 0/HPF (0-FEW) Urine Mucus Mod/LPF Sodium Level 135mmol/L (136-145) 135mmol/L (136-145) Potassium Level 3.8mmol/L (3.5-5.1) 3.7mmol/L (3.5-5.1) Chloride Level 96mmol/L (98-107) 101mmol/L (98-107) Carbon Dioxide Level 24mmol/L (21-32) 22mmol/L (21-32) Anion Gap 15 (6-14) 12 (6-14) Blood Urea Nitrogen 11mg/dL (8-26) 11mg/dL (8-26) Creatinine 1.2mg/dL (0.7-1.3) 1.1mg/dL (0.7-1.3) Estimated GFR (Cockcroft-Gault) 78.0 86.2 BUN/Creatinine Ratio 9 (6-20) Glucose Level 168mg/dL (70-99) 187mg/dL (70-99) Calcium Level 8.9mg/dL (8.5-10.1) 8.2mg/dL (8.5-10.1) Total Bilirubin 0.5mg/dL (0.2-1.0) Aspartate Amino Transf (AST/SGOT) 20U/L (15-37) Alanine Aminotransferase (ALT/SGPT) 27U/L (16-63) Alkaline Phosphatase 56U/L (46-116) Total Protein 7.7g/dL (6.4-8.2) Albumin 3.3g/dL (3.4-5.0) Albumin/Globulin Ratio 0.8 (1.0-1.7) Lipase 76U/L (73-393) Lactic Acid Level 1.8mmol/L (0.4-2.0) Allergies: Coded Allergies: No Known Drug Allergies (Unverified , 08/30/16) Medications: Current Medications Medications (Trade) Dose Ordered Sig/Poncho Route PRN Reason Start Time Stop Time Status Last Admin Dose Admin Sodium Chloride (Iv Sodium Chloride 0.9% 1000ml Bag) 1,000 ml @ 1,000 mls/hr Q1H IV 08/30/16 19:45 08/30/16 20:44 DC 08/30/16 19:58 Morphine Sulfate 4 mg 1X ONCE IV 08/30/16 19:45 08/30/16 19:46 DC 08/30/16 19:58 Ondansetron HCl (Zofran) 4 mg 1X ONCE IV 08/30/16 19:45 08/30/16 19:46 DC 08/30/16 19:57 Iohexol (Omnipaque 300 Mg/ml) 75 ml 1X ONCE IV 08/30/16 20:00 08/30/16 20:01 DC 08/30/16 20:57 Morphine Sulfate 4 mg 4 mg 1X ONCE IV 08/30/16 21:45 08/30/16 21:46 DC 08/30/16 22:22 Piperacillin Sod/ Tazobactam Sod/ Sodium Chloride (Zosyn/Iv Sodium Chloride 0.9% 50ml) 50 ml @ 100 mls/hr Q6HRS IV 08/30/16 22:00 08/31/16 06:27 Morphine Sulfate 4 mg 4 mg PRN Q2HR PRN IV PAIN 08/30/16 22:30 08/31/16 22:29 08/30/16 23:16 Sodium Chloride (Iv Sodium Chloride 0.9% 1000ml Bag) 1,000 ml @ 125 mls/hr Q8H IV 08/30/16 22:30 08/31/16 22:29 08/31/16 09:13 Acetaminophen 650 mg 650 mg PRN Q4HRS PRN PO FEVER 08/30/16 22:30 08/31/16 22:29 08/30/16 23:15 Hydromorphone HCl (Dilaudid Standard SECURITY GUARD DISPATCHER) 30 ml @ 0 mls/hr CONT PRN PRN IV PROTOCOL 08/30/16 23:30 08/31/16 02:52 Imaging: Imaging: CT A/P w/ IV contrast IMPRESSION Multiple abnormal loops of small bowel and sigmoid colon with wall thickening and mucosal hyper enhancement. Small amount of pneumoperitoneum adjacent to the abnormal loop of the sigmoid colon and surrounding the liver with small amount of free fluid in the right lower quadrant and pelvis. The primary diagnostic consideration would include inflammatory bowel disease such as Crohn disease. Appendix not clearly seen. The results were discussed with Dr. Masoud Morris in the emergency room soon after completion of the study. PE: GEN: NAD HEENT: Atraumatic, PERRLA LUNGS: CTAB HEART: RRR, no murmurs ABD: NABS, S/ND/NT, no masses EXTREMITY: No edema SKIN: No rashes, no jaundice NEURO/PSYCH: A & O 3 A/P: A/P: Abdominal pain w/ change in bowel habits, pneumoperitoneum -ddx: IBD, ruptured diverticulum, foreign body/perf -NPO w/ SECURITY GUARD DISPATCHER, IV antibiotics, surgery following -- D/w Dr. Sawant. Continue medical therapy, follow surgical recs. Colonoscopy not recommended. UMM RIVAS Aug 31, 2016 09:28
--- NOTE | 2016-08-31 10:33 | PDOC ---
SURGICAL PROGRESS NOTE Subjective Asked by Dr. Scott to eval pt Pt reports feeling better then yesterday, main c/o is hunger, no flatus or stool , midl diffuse pain Vital Signs Vital Signs Date Time Temp Pulse Resp B/P Pulse Ox O2 Delivery O2 Flow Rate FiO2 08/31/16 07:00 97.5 130 20 110/79 95 Room Air 97.5 I&O Intake and Output 08/31/16 07:00 Intake Total 1050 ml Output Total 300 ml Balance 750 ml Intake IV Total 1050 ml Output Urine Total 300 ml # Voids 4 General: Alert, Oriented X3, Cooperative, No acute distress Abdomen: Soft, Other (mild diffuse TTP, no peritoneal signs, no guarding) Labs Laboratory Tests Test 08/30/16 19:49 08/30/16 20:23 08/30/16 22:30 08/31/16 06:15 White Blood Count 5.8x10^3/uL (4.0-11.0) 5.9x10^3/uL (4.0-11.0) Red Blood Count 5.25x10^6/uL (4.30-5.70) 4.96x10^6/uL (4.30-5.70) Hemoglobin 16.0g/dL (13.0-17.5) 15.0g/dL (13.0-17.5) Hematocrit 47.3% (39.0-53.0) 45.0% (39.0-53.0) Mean Corpuscular Volume 90fL (79-100) 91fL (79-100) Mean Corpuscular Hemoglobin 31pg (25-35) 30pg (25-35) Mean Corpuscular Hemoglobin Concent 34g/dL (31-37) 33g/dL (31-37) Red Cell Distribution Width 12.8% (11.5-14.5) 12.8% (11.5-14.5) Platelet Count 205x10^3/uL (140-400) 171x10^3/uL (140-400) Neutrophils (%) (Auto) 77% (31-73) 81% (31-73) Lymphocytes (%) (Auto) 13% (24-48) 10% (24-48) Monocytes (%) (Auto) 10% (0-9) 9% (0-9) Eosinophils (%) (Auto) 0% (0-3) 1% (0-3) Basophils (%) (Auto) 0% (0-3) 0% (0-3) Neutrophils # (Auto) 4.4x10^3uL (1.8-7.7) 4.8x10^3uL (1.8-7.7) Lymphocytes # (Auto) 0.7x10^3/uL (1.0-4.8) 0.6x10^3/uL (1.0-4.8) Monocytes # (Auto) 0.6x10^3/uL (0.0-1.1) 0.5x10^3/uL (0.0-1.1) Eosinophils # (Auto) 0.0x10^3/uL (0.0-0.7) 0.0x10^3/uL (0.0-0.7) Basophils # (Auto) 0.0x10^3/uL (0.0-0.2) 0.0x10^3/uL (0.0-0.2) Urine Collection Type Unknown Urine Color Jess Urine Clarity Turbid Urine pH 5.5 Urine Specific [place] 1.025 Urine Protein Tracemg/dL (NEG-TRACE) Urine Glucose (UA) Negativemg/dL (NEG) Urine Ketones (Stick) 15mg/dL (NEG) Urine Blood Trace (NEG) Urine Nitrite Negative (NEG) Urine Bilirubin Small (NEG) Urine Urobilinogen Dipstick 0.2mg/dL (0.2 mg/dL) Urine Leukocyte Esterase Trace (NEG) Urine RBC Occ/HPF (0-2) Urine WBC Occ/HPF (0-4) Urine Squamous Epithelial Cells Occ/LPF Urine Bacteria 0/HPF (0-FEW) Urine Mucus Mod/LPF Sodium Level 135mmol/L (136-145) 135mmol/L (136-145) Potassium Level 3.8mmol/L (3.5-5.1) 3.7mmol/L (3.5-5.1) Chloride Level 96mmol/L (98-107) 101mmol/L (98-107) Carbon Dioxide Level 24mmol/L (21-32) 22mmol/L (21-32) Anion Gap 15 (6-14) 12 (6-14) Blood Urea Nitrogen 11mg/dL (8-26) 11mg/dL (8-26) Creatinine 1.2mg/dL (0.7-1.3) 1.1mg/dL (0.7-1.3) Estimated GFR (Cockcroft-Gault) 78.0 86.2 BUN/Creatinine Ratio 9 (6-20) Glucose Level 168mg/dL (70-99) 187mg/dL (70-99) Calcium Level 8.9mg/dL (8.5-10.1) 8.2mg/dL (8.5-10.1) Total Bilirubin 0.5mg/dL (0.2-1.0) Aspartate Amino Transf (AST/SGOT) 20U/L (15-37) Alanine Aminotransferase (ALT/SGPT) 27U/L (16-63) Alkaline Phosphatase 56U/L (46-116) Total Protein 7.7g/dL (6.4-8.2) Albumin 3.3g/dL (3.4-5.0) Albumin/Globulin Ratio 0.8 (1.0-1.7) Lipase 76U/L (73-393) Lactic Acid Level 1.8mmol/L (0.4-2.0) Laboratory Tests Test 08/30/16 19:49 08/30/16 20:23 08/30/16 22:30 08/31/16 06:15 White Blood Count 5.8x10^3/uL (4.0-11.0) 5.9x10^3/uL (4.0-11.0) Red Blood Count 5.25x10^6/uL (4.30-5.70) 4.96x10^6/uL (4.30-5.70) Hemoglobin 16.0g/dL (13.0-17.5) 15.0g/dL (13.0-17.5) Hematocrit 47.3% (39.0-53.0) 45.0% (39.0-53.0) Mean Corpuscular Volume 90fL (79-100) 91fL (79-100) Mean Corpuscular Hemoglobin 31pg (25-35) 30pg (25-35) Mean Corpuscular Hemoglobin Concent 34g/dL (31-37) 33g/dL (31-37) Red Cell Distribution Width 12.8% (11.5-14.5) 12.8% (11.5-14.5) Platelet Count 205x10^3/uL (140-400) 171x10^3/uL (140-400) Neutrophils (%) (Auto) 77% (31-73) 81% (31-73) Lymphocytes (%) (Auto) 13% (24-48) 10% (24-48) Monocytes (%) (Auto) 10% (0-9) 9% (0-9) Eosinophils (%) (Auto) 0% (0-3) 1% (0-3) Basophils (%) (Auto) 0% (0-3) 0% (0-3) Neutrophils # (Auto) 4.4x10^3uL (1.8-7.7) 4.8x10^3uL (1.8-7.7) Lymphocytes # (Auto) 0.7x10^3/uL (1.0-4.8) 0.6x10^3/uL (1.0-4.8) Monocytes # (Auto) 0.6x10^3/uL (0.0-1.1) 0.5x10^3/uL (0.0-1.1) Eosinophils # (Auto) 0.0x10^3/uL (0.0-0.7) 0.0x10^3/uL (0.0-0.7) Basophils # (Auto) 0.0x10^3/uL (0.0-0.2) 0.0x10^3/uL (0.0-0.2) Urine Collection Type Unknown Urine Color Jess Urine Clarity Turbid Urine pH 5.5 Urine Specific [place] 1.025 Urine Protein Tracemg/dL (NEG-TRACE) Urine Glucose (UA) Negativemg/dL (NEG) Urine Ketones (Stick) 15mg/dL (NEG) Urine Blood Trace (NEG) Urine Nitrite Negative (NEG) Urine Bilirubin Small (NEG) Urine Urobilinogen Dipstick 0.2mg/dL (0.2 mg/dL) Urine Leukocyte Esterase Trace (NEG) Urine RBC Occ/HPF (0-2) Urine WBC Occ/HPF (0-4) Urine Squamous Epithelial Cells Occ/LPF Urine Bacteria 0/HPF (0-FEW) Urine Mucus Mod/LPF Sodium Level 135mmol/L (136-145) 135mmol/L (136-145) Potassium Level 3.8mmol/L (3.5-5.1) 3.7mmol/L (3.5-5.1) Chloride Level 96mmol/L (98-107) 101mmol/L (98-107) Carbon Dioxide Level 24mmol/L (21-32) 22mmol/L (21-32) Anion Gap 15 (6-14) 12 (6-14) Blood Urea Nitrogen 11mg/dL (8-26) 11mg/dL (8-26) Creatinine 1.2mg/dL (0.7-1.3) 1.1mg/dL (0.7-1.3) Estimated GFR (Cockcroft-Gault) 78.0 86.2 BUN/Creatinine Ratio 9 (6-20) Glucose Level 168mg/dL (70-99) 187mg/dL (70-99) Calcium Level 8.9mg/dL (8.5-10.1) 8.2mg/dL (8.5-10.1) Total Bilirubin 0.5mg/dL (0.2-1.0) Aspartate Amino Transf (AST/SGOT) 20U/L (15-37) Alanine Aminotransferase (ALT/SGPT) 27U/L (16-63) Alkaline Phosphatase 56U/L (46-116) Total Protein 7.7g/dL (6.4-8.2) Albumin 3.3g/dL (3.4-5.0) Albumin/Globulin Ratio 0.8 (1.0-1.7) Lipase 76U/L (73-393) Lactic Acid Level 1.8mmol/L (0.4-2.0) Problem List Problems Medical Problems: (1) Abdominal pain Status: Acute (2) Pneumoperitoneum Status: Acute Assessment/Plan pt reports feeling better today, but remains tachy, wnl WBC GI eval appreciated cont fluid resuscitation and abx will follow closely for possible surgical exploration Problems: ELIZABETH WILSON MD Aug 31, 2016 10:33
[2016-08-31 11:00] VITALS: BP 121/85
[2016-08-31] MEDS ORDERED: IV NORMAL SALINE 1000ML BAG 1,000 ML IV ONE (13:15)
--- NOTE | 2016-08-31 15:02 | PDOC ---
PROGRESS NOTES Chief Complaint Chief Complaint Acute abd pain colitis, or microperf, possible crohns, on DRAMA DIRECTOR for abdomnial pain cont NPO History of Present Illness History of Present Illness pain 4.10 w/ DRAMA DIRECTOR, he looks more calm no stool Vitals Vitals Vital Signs Date Time Temp Pulse Resp B/P Pulse Ox O2 Delivery O2 Flow Rate FiO2 08/31/16 11:00 97.6 137 20 121/85 94 Room Air 97.6 Physical Exam General: Alert, Oriented X3, Cooperative, No acute distress Heart: Regular rate Lungs: Clear Abdomen: Soft, Other (mild diffuse TTP, no peritoneal signs, no guarding) Extremities: No clubbing, No cyanosis, No edema, Normal pulses Skin: No rashes, No breakdown Labs LABS Laboratory Tests Test 08/30/16 19:49 08/30/16 20:23 08/30/16 22:30 08/31/16 06:15 White Blood Count 5.8x10^3/uL (4.0-11.0) 5.9x10^3/uL (4.0-11.0) Red Blood Count 5.25x10^6/uL (4.30-5.70) 4.96x10^6/uL (4.30-5.70) Hemoglobin 16.0g/dL (13.0-17.5) 15.0g/dL (13.0-17.5) Hematocrit 47.3% (39.0-53.0) 45.0% (39.0-53.0) Mean Corpuscular Volume 90fL (79-100) 91fL (79-100) Mean Corpuscular Hemoglobin 31pg (25-35) 30pg (25-35) Mean Corpuscular Hemoglobin Concent 34g/dL (31-37) 33g/dL (31-37) Red Cell Distribution Width 12.8% (11.5-14.5) 12.8% (11.5-14.5) Platelet Count 205x10^3/uL (140-400) 171x10^3/uL (140-400) Neutrophils (%) (Auto) 77% (31-73) 81% (31-73) Lymphocytes (%) (Auto) 13% (24-48) 10% (24-48) Monocytes (%) (Auto) 10% (0-9) 9% (0-9) Eosinophils (%) (Auto) 0% (0-3) 1% (0-3) Basophils (%) (Auto) 0% (0-3) 0% (0-3) Neutrophils # (Auto) 4.4x10^3uL (1.8-7.7) 4.8x10^3uL (1.8-7.7) Lymphocytes # (Auto) 0.7x10^3/uL (1.0-4.8) 0.6x10^3/uL (1.0-4.8) Monocytes # (Auto) 0.6x10^3/uL (0.0-1.1) 0.5x10^3/uL (0.0-1.1) Eosinophils # (Auto) 0.0x10^3/uL (0.0-0.7) 0.0x10^3/uL (0.0-0.7) Basophils # (Auto) 0.0x10^3/uL (0.0-0.2) 0.0x10^3/uL (0.0-0.2) Urine Collection Type Unknown Urine Color Jess Urine Clarity Turbid Urine pH 5.5 Urine Specific [place] 1.025 Urine Protein Tracemg/dL (NEG-TRACE) Urine Glucose (UA) Negativemg/dL (NEG) Urine Ketones (Stick) 15mg/dL (NEG) Urine Blood Trace (NEG) Urine Nitrite Negative (NEG) Urine Bilirubin Small (NEG) Urine Urobilinogen Dipstick 0.2mg/dL (0.2 mg/dL) Urine Leukocyte Esterase Trace (NEG) Urine RBC Occ/HPF (0-2) Urine WBC Occ/HPF (0-4) Urine Squamous Epithelial Cells Occ/LPF Urine Bacteria 0/HPF (0-FEW) Urine Mucus Mod/LPF Sodium Level 135mmol/L (136-145) 135mmol/L (136-145) Potassium Level 3.8mmol/L (3.5-5.1) 3.7mmol/L (3.5-5.1) Chloride Level 96mmol/L (98-107) 101mmol/L (98-107) Carbon Dioxide Level 24mmol/L (21-32) 22mmol/L (21-32) Anion Gap 15 (6-14) 12 (6-14) Blood Urea Nitrogen 11mg/dL (8-26) 11mg/dL (8-26) Creatinine 1.2mg/dL (0.7-1.3) 1.1mg/dL (0.7-1.3) Estimated GFR (Cockcroft-Gault) 78.0 86.2 BUN/Creatinine Ratio 9 (6-20) Glucose Level 168mg/dL (70-99) 187mg/dL (70-99) Calcium Level 8.9mg/dL (8.5-10.1) 8.2mg/dL (8.5-10.1) Total Bilirubin 0.5mg/dL (0.2-1.0) Aspartate Amino Transf (AST/SGOT) 20U/L (15-37) Alanine Aminotransferase (ALT/SGPT) 27U/L (16-63) Alkaline Phosphatase 56U/L (46-116) Total Protein 7.7g/dL (6.4-8.2) Albumin 3.3g/dL (3.4-5.0) Albumin/Globulin Ratio 0.8 (1.0-1.7) Lipase 76U/L (73-393) Lactic Acid Level 1.8mmol/L (0.4-2.0) Review of Systems Review of Systems nausea hungry Assessment and Plan Assessmemt and Plan Problems Medical Problems: (1) Abdominal pain Status: Acute (2) Pneumoperitoneum Status: Acute Problems: Comment Review of Relevant I have reviewed the following items crystal (where applicable) has been applied. Labs Laboratory Tests Test 08/30/16 19:49 08/30/16 20:23 08/30/16 22:30 08/31/16 06:15 White Blood Count 5.8x10^3/uL (4.0-11.0) 5.9x10^3/uL (4.0-11.0) Red Blood Count 5.25x10^6/uL (4.30-5.70) 4.96x10^6/uL (4.30-5.70) Hemoglobin 16.0g/dL (13.0-17.5) 15.0g/dL (13.0-17.5) Hematocrit 47.3% (39.0-53.0) 45.0% (39.0-53.0) Mean Corpuscular Volume 90fL (79-100) 91fL (79-100) Mean Corpuscular Hemoglobin 31pg (25-35) 30pg (25-35) Mean Corpuscular Hemoglobin Concent 34g/dL (31-37) 33g/dL (31-37) Red Cell Distribution Width 12.8% (11.5-14.5) 12.8% (11.5-14.5) Platelet Count 205x10^3/uL (140-400) 171x10^3/uL (140-400) Neutrophils (%) (Auto) 77% (31-73) 81% (31-73) Lymphocytes (%) (Auto) 13% (24-48) 10% (24-48) Monocytes (%) (Auto) 10% (0-9) 9% (0-9) Eosinophils (%) (Auto) 0% (0-3) 1% (0-3) Basophils (%) (Auto) 0% (0-3) 0% (0-3) Neutrophils # (Auto) 4.4x10^3uL (1.8-7.7) 4.8x10^3uL (1.8-7.7) Lymphocytes # (Auto) 0.7x10^3/uL (1.0-4.8) 0.6x10^3/uL (1.0-4.8) Monocytes # (Auto) 0.6x10^3/uL (0.0-1.1) 0.5x10^3/uL (0.0-1.1) Eosinophils # (Auto) 0.0x10^3/uL (0.0-0.7) 0.0x10^3/uL (0.0-0.7) Basophils # (Auto) 0.0x10^3/uL (0.0-0.2) 0.0x10^3/uL (0.0-0.2) Urine Collection Type Unknown Urine Color Jess Urine Clarity Turbid Urine pH 5.5 Urine Specific [place] 1.025 Urine Protein Tracemg/dL (NEG-TRACE) Urine Glucose (UA) Negativemg/dL (NEG) Urine Ketones (Stick) 15mg/dL (NEG) Urine Blood Trace (NEG) Urine Nitrite Negative (NEG) Urine Bilirubin Small (NEG) Urine Urobilinogen Dipstick 0.2mg/dL (0.2 mg/dL) Urine Leukocyte Esterase Trace (NEG) Urine RBC Occ/HPF (0-2) Urine WBC Occ/HPF (0-4) Urine Squamous Epithelial Cells Occ/LPF Urine Bacteria 0/HPF (0-FEW) Urine Mucus Mod/LPF Sodium Level 135mmol/L (136-145) 135mmol/L (136-145) Potassium Level 3.8mmol/L (3.5-5.1) 3.7mmol/L (3.5-5.1) Chloride Level 96mmol/L (98-107) 101mmol/L (98-107) Carbon Dioxide Level 24mmol/L (21-32) 22mmol/L (21-32) Anion Gap 15 (6-14) 12 (6-14) Blood Urea Nitrogen 11mg/dL (8-26) 11mg/dL (8-26) Creatinine 1.2mg/dL (0.7-1.3) 1.1mg/dL (0.7-1.3) Estimated GFR (Cockcroft-Gault) 78.0 86.2 BUN/Creatinine Ratio 9 (6-20) Glucose Level 168mg/dL (70-99) 187mg/dL (70-99) Calcium Level 8.9mg/dL (8.5-10.1) 8.2mg/dL (8.5-10.1) Total Bilirubin 0.5mg/dL (0.2-1.0) Aspartate Amino Transf (AST/SGOT) 20U/L (15-37) Alanine Aminotransferase (ALT/SGPT) 27U/L (16-63) Alkaline Phosphatase 56U/L (46-116) Total Protein 7.7g/dL (6.4-8.2) Albumin 3.3g/dL (3.4-5.0) Albumin/Globulin Ratio 0.8 (1.0-1.7) Lipase 76U/L (73-393) Lactic Acid Level 1.8mmol/L (0.4-2.0) Laboratory Tests Test 08/30/16 19:49 08/30/16 20:23 1/11/17 22:30 08/31/16 06:15 White Blood Count 5.8x10^3/uL (4.0-11.0) 5.9x10^3/uL (4.0-11.0) Red Blood Count 5.25x10^6/uL (4.30-5.70) 4.96x10^6/uL (4.30-5.70) Hemoglobin 16.0g/dL (13.0-17.5) 15.0g/dL (13.0-17.5) Hematocrit 47.3% (39.0-53.0) 45.0% (39.0-53.0) Mean Corpuscular Volume 90fL (79-100) 91fL (79-100) Mean Corpuscular Hemoglobin 31pg (25-35) 30pg (25-35) Mean Corpuscular Hemoglobin Concent 34g/dL (31-37) 33g/dL (31-37) Red Cell Distribution Width 12.8% (11.5-14.5) 12.8% (11.5-14.5) Platelet Count 205x10^3/uL (140-400) 171x10^3/uL (140-400) Neutrophils (%) (Auto) 77% (31-73) 81% (31-73) Lymphocytes (%) (Auto) 13% (24-48) 10% (24-48) Monocytes (%) (Auto) 10% (0-9) 9% (0-9) Eosinophils (%) (Auto) 0% (0-3) 1% (0-3) Basophils (%) (Auto) 0% (0-3) 0% (0-3) Neutrophils # (Auto) 4.4x10^3uL (1.8-7.7) 4.8x10^3uL (1.8-7.7) Lymphocytes # (Auto) 0.7x10^3/uL (1.0-4.8) 0.6x10^3/uL (1.0-4.8) Monocytes # (Auto) 0.6x10^3/uL (0.0-1.1) 0.5x10^3/uL (0.0-1.1) Eosinophils # (Auto) 0.0x10^3/uL (0.0-0.7) 0.0x10^3/uL (0.0-0.7) Basophils # (Auto) 0.0x10^3/uL (0.0-0.2) 0.0x10^3/uL (0.0-0.2) Urine Collection Type Unknown Urine Color Jess Urine Clarity Turbid Urine pH 5.5 Urine Specific [place] 1.025 Urine Protein Tracemg/dL (NEG-TRACE) Urine Glucose (UA) Negativemg/dL (NEG) Urine Ketones (Stick) 15mg/dL (NEG) Urine Blood Trace (NEG) Urine Nitrite Negative (NEG) Urine Bilirubin Small (NEG) Urine Urobilinogen Dipstick 0.2mg/dL (0.2 mg/dL) Urine Leukocyte Esterase Trace (NEG) Urine RBC Occ/HPF (0-2) Urine WBC Occ/HPF (0-4) Urine Squamous Epithelial Cells Occ/LPF Urine Bacteria 0/HPF (0-FEW) Urine Mucus Mod/LPF Sodium Level 135mmol/L (136-145) 135mmol/L (136-145) Potassium Level 3.8mmol/L (3.5-5.1) 3.7mmol/L (3.5-5.1) Chloride Level 96mmol/L (98-107) 101mmol/L (98-107) Carbon Dioxide Level 24mmol/L (21-32) 22mmol/L (21-32) Anion Gap 15 (6-14) 12 (6-14) Blood Urea Nitrogen 11mg/dL (8-26) 11mg/dL (8-26) Creatinine 1.2mg/dL (0.7-1.3) 1.1mg/dL (0.7-1.3) Estimated GFR (Cockcroft-Gault) 78.0 86.2 BUN/Creatinine Ratio 9 (6-20) Glucose Level 168mg/dL (70-99) 187mg/dL (70-99) Calcium Level 8.9mg/dL (8.5-10.1) 8.2mg/dL (8.5-10.1) Total Bilirubin 0.5mg/dL (0.2-1.0) Aspartate Amino Transf (AST/SGOT) 20U/L (15-37) Alanine Aminotransferase (ALT/SGPT) 27U/L (16-63) Alkaline Phosphatase 56U/L (46-116) Total Protein 7.7g/dL (6.4-8.2) Albumin 3.3g/dL (3.4-5.0) Albumin/Globulin Ratio 0.8 (1.0-1.7) Lipase 76U/L (73-393) Lactic Acid Level 1.8mmol/L (0.4-2.0) Medications Current Medications Sodium Chloride (Iv Sodium Chloride 0.9% 1000ml Bag) 1,000 ml @ 1,000 mls/hr Q1H IV Last administered on 08/30/16 19:58; Start 08/30/16 at 19:45; Stop 07/06 at 20:44; Status DC Morphine Sulfate 4 mg 1X ONCE IV Last administered on 08/30/16 19:58; Start 08/30/16 at 19:45; Stop 08/30/16 at 19:46; Status DC Ondansetron HCl (Zofran) 4 mg 1X ONCE IV Last administered on 08/30/16 19:57 ; Start 08/30/16 at 19:45; Stop 08/30/16 at 19:46; Status DC Iohexol (Omnipaque 300 Mg/ml) 75 ml 1X ONCE IV Last administered on 08/30/16 20:57; Start 08/30/16 at 20:00; Stop 08/30/16 at 20:01; Status DC Morphine Sulfate 4 mg 1X ONCE IV Last administered on 08/30/16 22:22; Start 08/30/16 at 21:45; Stop 08/30/16 at 21:46; Status DC Piperacillin Sod/ Tazobactam Sod 1 each 1 each PRN DAILY PRN MC SEE COMMENTS; Start 08/30/16 at 21:45 Piperacillin Sod/ Tazobactam Sod/ Sodium Chloride (Zosyn/Iv Sodium Chloride 0.9 % 50ml) 50 ml @ 100 mls/hr Q6HRS IV Last administered on 08/31/16 12:22; Start 08/30/16 at 22:00 Ondansetron HCl (Zofran) 4 mg PRN Q8HRS PRN IV NAUSEA/VOMITING; Start 08/30/16 at 22:30; Stop 08/31/16 at 22:29 Morphine Sulfate 4 mg 4 mg PRN Q2HR PRN IV PAIN Last administered on 08/30/16 23:16; Start 08/30/16 at 22:30; Stop 08/31/16 at 22:29 Sodium Chloride (Iv Sodium Chloride 0.9% 1000ml Bag) 1,000 ml @ 125 mls/hr Q8H IV Last administered on 08/31/16 09:13; Start 08/30/16 at 22:30; Stop at 13:05; Status DC Acetaminophen 650 mg 650 mg PRN Q4HRS PRN PO FEVER Last administered on 23:15; Start 08/30/16 at 22:30; Stop 08/31/16 at 22:29 Hydromorphone HCl 30 ml @ 0 mls/hr CONT PRN PRN IV PROTOCOL Last administered on 08/31/16 02:52; Start 08/30/16 at 23:30 Potassium Chloride/Dextrose/ Sod Cl 1,000 ml @ 100 mls/hr Q10H IV ; Start 08/31 at 13:15 Sodium Chloride (Iv Sodium Chloride 0.9% 1000ml Bag) 1,000 ml @ 1,000 mls/hr 1X ONCE IV Last administered on 08/31/16 14:24; Start 08/31/16 at 13:15; Stop 08/31/16 at 14:14; Status DC Vitals/I & O Vital Sign - Last 24 Hours 08/30/16 08/30/16 08/30/16 08/30/16 19:00 19:25 19:30 19:58 Temp 99.5 99.5 Pulse 108 90 114 Resp 18 18 16 B/P 124/73 122/81 130/74 Pulse Ox 98 99 99 O2 Delivery Room Air Room Air Room Air 08/30/16 08/30/16 08/30/16 08/30/16 20:00 20:30 20:30 22:00 Pulse 118 116 116 116 Resp 16 22 B/P 143/74 141/79 141/79 144/71 Pulse Ox 97 97 97 97 O2 Delivery Room Air Room Air Room Air 08/30/16 08/30/16 08/30/16 08/31/16 22:45 23:16 23:46 01:05 Temp 102.9 102.9 Pulse 107 Resp 20 B/P 100/72 Pulse Ox 93 93 93 O2 Delivery Room Air Room Air 08/31/16 08/31/16 08/31/16 08/31/16 02:52 03:00 03:22 07:00 Temp 99.5 97.5 99.5 97.5 Pulse 119 130 Resp 20 20 B/P 117/78 110/79 Pulse Ox 93 93 93 95 O2 Delivery Room Air Room Air Room Air Room Air 08/31/16 08/31/16 08/31/16 08/31/16 07:15 07:15 08:15 11:00 Temp 97.6 97.6 Pulse 137 Resp 20 B/P 121/85 Pulse Ox 94 O2 Delivery Room Air Room Air Room Air Room Air Intake and Output 08/30/16 08/30/16 08/31/16 15:00 23:00 07:00 Intake Total 1050 ml Output Total 300 ml Balance 1050 ml -300 ml CHELY BUSTILLO MD Aug 31, 2016 15:02
[2016-08-31] MEDS: POTASSIUM CL 20MEQ D5-0.45NACL 1,000 ML IV SCH (15:53)
[2016-08-31 16:30] VITALS: BP 196/95
--- NOTE | 2016-08-31 16:34 | PDOC ---
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70) Hemoglobin 16.0g/dL (13.0-17.5) 15.0g/dL (13.0-17.5) Hematocrit 47.3% (39.0-53.0) 45.0% (39.0-53.0) Mean Corpuscular Volume 90fL (79-100) 91fL (79-100) Mean Corpuscular Hemoglobin 31pg (25-35) 30pg (25-35) Mean Corpuscular Hemoglobin Concent 34g/dL (31-37) 33g/dL (31-37) Red Cell Distribution Width 12.8% (11.5-14.5) 12.8% (11.5-14.5) Platelet Count 205x10^3/uL (140-400) 171x10^3/uL (140-400) Neutrophils (%) (Auto) 77% (31-73) 81% (31-73) Lymphocytes (%) (Auto) 13% (24-48) 10% (24-48) Monocytes (%) (Auto) 10% (0-9) 9% (0-9) Eosinophils (%) (Auto) 0% (0-3) 1% (0-3) Basophils (%) (Auto) 0% (0-3) 0% (0-3) Neutrophils # (Auto) 4.4x10^3uL (1.8-7.7) 4.8x10^3uL (1.8-7.7) Lymphocytes # (Auto) 0.7x10^3/uL (1.0-4.8) 0.6x10^3/uL (1.0-4.8) Monocytes # (Auto) 0.6x10^3/uL (0.0-1.1) 0.5x10^3/uL (0.0-1.1) Eosinophils # (Auto) 0.0x10^3/uL (0.0-0.7) 0.0x10^3/uL (0.0-0.7) Basophils # (Auto) 0.0x10^3/uL (0.0-0.2) 0.0x10^3/uL (0.0-0.2) Urine Collection Type Unknown Urine Color Jess Urine Clarity Turbid Urine pH 5.5 Urine Specific [place] 1.025 Urine Protein Tracemg/dL (NEG-TRACE) Urine Glucose (UA) Negativemg/dL (NEG) Urine Ketones (Stick) 15mg/dL (NEG) Urine Blood Trace (NEG) Urine Nitrite Negative (NEG) Urine Bilirubin Small (NEG) Urine Urobilinogen Dipstick 0.2mg/dL (0.2 mg/dL) Urine Leukocyte Esterase Trace (NEG) Urine RBC Occ/HPF (0-2) Urine WBC Occ/HPF (0-4) Urine Squamous Epithelial Cells Occ/LPF Urine Bacteria 0/HPF (0-FEW) Urine Mucus Mod/LPF Sodium Level 135mmol/L (136-145) 135mmol/L (136-145) Potassium Level 3.8mmol/L (3.5-5.1) 3.7mmol/L (3.5-5.1) Chloride Level 96mmol/L (98-107) 101mmol/L (98-107) Carbon Dioxide Level 24mmol/L (21-32) 22mmol/L (21-32) Anion Gap 15 (6-14) 12 (6-14) Blood Urea Nitrogen 11mg/dL (8-26) 11mg/dL (8-26) Creatinine 1.2mg/dL (0.7-1.3) 1.1mg/dL (0.7-1.3) Estimated GFR (Cockcroft-Gault) 78.0 86.2 BUN/Creatinine Ratio 9 (6-20) Glucose Level 168mg/dL (70-99) 187mg/dL (70-99) Calcium Level 8.9mg/dL (8.5-10.1) 8.2mg/dL (8.5-10.1) Total Bilirubin 0.5mg/dL (0.2-1.0) Aspartate Amino Transf (AST/SGOT) 20U/L (15-37) Alanine Aminotransferase (ALT/SGPT) 27U/L (16-63) Alkaline Phosphatase 56U/L (46-116) Total Protein 7.7g/dL (6.4-8.2) Albumin 3.3g/dL (3.4-5.0) Albumin/Globulin Ratio 0.8 (1.0-1.7) Lipase 76U/L (73-393) Lactic Acid Level 1.8mmol/L (0.4-2.0) Laboratory Tests Test 08/30/16 19:49 08/30/16 20:23 08/30/16 22:30 08/31/16 06:15 White Blood Count 5.8x10^3/uL (4.0-11.0) 5.9x10^3/uL (4.0-11.0) Red Blood Count 5.25x10^6/uL (4.30-5.70) 4.96x10^6/uL (4.30-5.70) Hemoglobin 16.0g/dL (13.0-17.5) 15.0g/dL (13.0-17.5) Hematocrit 47.3% (39.0-53.0) 45.0% (39.0-53.0) Mean Corpuscular Volume 90fL (79-100) 91fL (79-100) Mean Corpuscular Hemoglobin 31pg (25-35) 30pg (25-35) Mean Corpuscular Hemoglobin Concent 34g/dL (31-37) 33g/dL (31-37) Red Cell Distribution Width 12.8% (11.5-14.5) 12.8% (11.5-14.5) Platelet Count 205x10^3/uL (140-400) 171x10^3/uL (140-400) Neutrophils (%) (Auto) 77% (31-73) 81% (31-73) Lymphocytes (%) (Auto) 13% (24-48) 10% (24-48) Monocytes (%) (Auto) 10% (0-9) 9% (0-9) Eosinophils (%) (Auto) 0% (0-3) 1% (0-3) Basophils (%) (Auto) 0% (0-3) 0% (0-3) Neutrophils # (Auto) 4.4x10^3uL (1.8-7.7) 4.8x10^3uL (1.8-7.7) Lymphocytes # (Auto) 0.7x10^3/uL (1.0-4.8) 0.6x10^3/uL (1.0-4.8) Monocytes # (Auto) 0.6x10^3/uL (0.0-1.1) 0.5x10^3/uL (0.0-1.1) Eosinophils # (Auto) 0.0x10^3/uL (0.0-0.7) 0.0x10^3/uL (0.0-0.7) Basophils # (Auto) 0.0x10^3/uL (0.0-0.2) 0.0x10^3/uL (0.0-0.2) Urine Collection Type Unknown Urine Color Jess Urine Clarity Turbid Urine pH 5.5 Urine Specific [place] 1.025 Urine Protein Tracemg/dL (NEG-TRACE) Urine Glucose (UA) Negativemg/dL (NEG) Urine Ketones (Stick) 15mg/dL (NEG) Urine Blood Trace (NEG) Urine Nitrite Negative (NEG) Urine Bilirubin Small (NEG) Urine Urobilinogen Dipstick 0.2mg/dL (0.2 mg/dL) Urine Leukocyte Esterase Trace (NEG) Urine RBC Occ/HPF (0-2) Urine WBC Occ/HPF (0-4) Urine Squamous Epithelial Cells Occ/LPF Urine Bacteria 0/HPF (0-FEW) Urine Mucus Mod/LPF Sodium Level 135mmol/L (136-145) 135mmol/L (136-145) Potassium Level 3.8mmol/L (3.5-5.1) 3.7mmol/L (3.5-5.1) Chloride Level 96mmol/L (98-107) 101mmol/L (98-107) Carbon Dioxide Level 24mmol/L (21-32) 22mmol/L (21-32) Anion Gap 15 (6-14) 12 (6-14) Blood Urea Nitrogen 11mg/dL (8-26) 11mg/dL (8-26) Creatinine 1.2mg/dL (0.7-1.3) 1.1mg/dL (0.7-1.3) Estimated GFR (Cockcroft-Gault) 78.0 86.2 BUN/Creatinine Ratio 9 (6-20) Glucose Level 168mg/dL (70-99) 187mg/dL (70-99) Calcium Level 8.9mg/dL (8.5-10.1) 8.2mg/dL (8.5-10.1) Total Bilirubin 0.5mg/dL (0.2-1.0) Aspartate Amino Transf (AST/SGOT) 20U/L (15-37) Alanine Aminotransferase (ALT/SGPT) 27U/L (16-63) Alkaline Phosphatase 56U/L (46-116) Total Protein 7.7g/dL (6.4-8.2) Albumin 3.3g/dL (3.4-5.0) Albumin/Globulin Ratio 0.8 (1.0-1.7) Lipase 76U/L (73-393) Lactic Acid Level 1.8mmol/L (0.4-2.0) Problem List Problems Medical Problems: (1) Abdominal pain Status: Acute (2) Pneumoperitoneum Status: Acute Assessment/Plan enteritis/colitis with microperf continue supportive care appreciate Joya Workman and Savana's input Problems: RODRIGUE LÓPEZ MD Aug 31, 2016 16:34
[2016-08-31] MEDS ORDERED: ALBUMIN HUMAN 5% 500 ML IV ONE (17:00)
[2016-08-31 19:00] VITALS: BP 129/79
--- NOTE | 2016-08-31 20:26 | CONS ---
DATE OF CONSULTATION: 08/30/2016 HISTORY OF PRESENT ILLNESS: The patient is a 20-year-old who presented to the Emergency Department with complaints of severe abdominal pain. He is an [place]vian speaking gentleman who per his father's history began having some issues a week ago after eating at a fast food restaurant. This worsened until today when the patient presented to the Emergency Department. He was found by CT to have marked inflammation of a segment of small bowel as well as a segment of sigmoid colon which was markedly inflamed and some small bubbles of free air present. We were asked to see him for evaluation of his abdominal complaints. The patient denies any previous similar episodes. No real nausea or vomiting with this process. He has had stools, although some have been loose. No significant family history of inflammatory bowel disease is obtained. PAST MEDICAL HISTORY: Surgery none. Medically, denies any heart, lung or kidney problems. As noted above no history of inflammatory bowel disease in the past. ALLERGIES: No known drug allergies. ROUTINE MEDICATIONS: None. SOCIAL HISTORY: He is a nonsmoker who does not routinely use alcohol. REVIEW OF SYSTEMS: GENERAL: Has had some chills and fevers. RESPIRATORY: No productive cough or wheezing. CARDIAC: No chest pain or palpitations. GASTROINTESTINAL: See history of present illness. GENITOURINARY: Denies dysuria or increased frequency. NEUROLOGIC: No headaches. PHYSICAL EXAMINATION: GENERAL: Reveals a young male who is alert and oriented. He appears uncomfortable due to abdominal pain, but is not in acute distress. VITAL SIGNS: He has a temperature of 100.2, heart rate 107, blood pressure 100/72. HEENT: Normocephalic. EOMs intact. NECK: Supple. LUNGS: Clear. HEART: Has an increased rate without extra sounds. ABDOMEN: Soft and nondistended. There is tenderness to palpation in the mid abdomen as well as the left lower quadrant without appreciable mass. GENITAL AND RECTAL: Deferred. EXTREMITIES: Showed no gross skeletal abnormalities. NEUROLOGIC: He is grossly intact. ADMISSION LABORATORY DATA: Shows a white count of 5800, hemoglobin 16. Chemistry shows a glucose of 168, albumin 3.3, lactic acid 1.8. Urinalysis showed a specific gravity of 1.025. IMAGING STUDIES: CT scan of the abdomen and pelvis shows multiple abnormal loops of small bowel and a short segment of sigmoid colon, which is normal with wall thickening, inflammatory changes. There are a few pockets of free air surrounding the colon and in the right upper quadrant around the liver. IMPRESSION: 1. Abdominal pain. 1.1. Small bowel changes with marked information. 1.2. Segment of sigmoid colon with inflammatory change and pericolonic gas bubble suggesting microperforation. 2. Dehydration secondary to above process. PLAN: Aggressive hydration, antibiotics, GI consult, careful observation. Discussed with the patient and his older brother who translates for his parents. Thank you for asking us to see this patient and participate in his care. We will follow him with you during this hospitalization. RODRIGUE LÓPEZ MD DR: ELDER/rosalba JOB#: [id number] / [id number]
[2016-08-31 23:00] VITALS: BP 110/80
[2016-09-01] MEDS: PIPERACILLIN/TAZOBACTAM 3.375 GM in IV NORMAL SALINE 50ML 50 ML IV SCH ×4 (01:15→18:10)
[2016-09-01] MEDS: POTASSIUM CL 20MEQ D5-0.45NACL 1,000 ML IV SCH ×2 (03:52→09:15)
[2016-09-01 06:33] LABS: BASO % 0 % (0-3); EOS % 0 % (0-3); HEMATOCRIT 39.4 % (39.0-53.0); LYMPH # 0.9 x10^3/uL (1.0-4.8); LYMPH % 8 % (24-48); MEAN CORPUSCULAR HEMOGLOBIN 30 pg (25-35); MEAN CORPUSCULAR HGB CONC 33 g/dL (31-37); MEAN CORPUSCULAR VOLUME 91 fL (79-100); MONO % 6 % (0-9); NEUT % 85 % (31-73); PLATELET COUNT 157 x10^3/uL (140-400); RED BLOOD COUNT 4.33 x10^6/uL (4.30-5.70); RED CELL DISTRIBUTION WIDTH 12.9 % (11.5-14.5); WHITE BLOOD COUNT 11.2 x10^3/uL (4.0-11.0)
[2016-09-01 07:00] VITALS: BP 106/72
[2016-09-01 08:24] LABS: PLT ESTIMATE ADEQUATE (ADEQUATE)
--- NOTE | 2016-09-01 09:35 | PDOC ---
Subjective: Subjective: Pain is stable, controlled w/ meds. Feels like he needs to pass gas but can't. Objective: Objective: Aide reports temp 100.9 Vital Signs: Vital Signs Date Time Temp Pulse Resp B/P Pulse Ox O2 Delivery O2 Flow Rate FiO2 08/31/16 23:00 98.3 120 16 110/80 94 Room Air 98.3 08/31/16 20:00 2.0 Labs: Laboratory Tests Test 09/01/16 06:10 White Blood Count 11.2x10^3/uL Red Blood Count 4.33x10^6/uL Hemoglobin 13.0g/dL Hematocrit 39.4% Mean Corpuscular Volume 91fL Mean Corpuscular Hemoglobin 30pg Mean Corpuscular Hemoglobin Concent 33g/dL Red Cell Distribution Width 12.9% Platelet Count 157x10^3/uL Neutrophils (%) (Auto) 85% Lymphocytes (%) (Auto) 8% Monocytes (%) (Auto) 6% Eosinophils (%) (Auto) 0% Basophils (%) (Auto) 0% Neutrophils # (Auto) 9.6x10^3uL Lymphocytes # (Auto) 0.9x10^3/uL Monocytes # (Auto) 0.7x10^3/uL Eosinophils # (Auto) 0.0x10^3/uL Basophils # (Auto) 0.0x10^3/uL Segmented Neutrophils % 84% Lymphocytes % 12% Monocytes % 4% Platelet Estimate Adequate Lactic Acid Level 1.2mmol/L PE: GEN: looks uncomfortable LUNGS: CTAB anteriorly HEART: tachycardic ABD: less soft, diffusely tender (worst LLQ - RLQ) NEURO/PSYCH: A & O 3 OTHER: family, aide present A/P: Abdominal pain w/ pneumoperitoneum -ddx: ruptured diverticulum, foreign body/perf (less likely cancer, IBD) -NPO w/ [employer] FILL, IV antibiotics Leukocytosis, fever, tachycardia -- Seems a bit worse today. Await surgical recs. GILSON-UMM LIRIANO Sep 01, 2016 09:35
[2016-09-01 09:56] LABS: CREATININE 0.9 mg/dL (0.7-1.3); GFR 108.7; POTASSIUM 4.6 mmol/L (3.5-5.1)
[2016-09-01 11:00] VITALS: BP 140/89
--- NOTE | 2016-09-01 11:01 | PDOC ---
AASHISH LEYVA AMBULANCE MECHANIC 09/01/16 1101: SURGICAL PROGRESS NOTE Subjective pain is amount the same, upper abdomen not passing gas Vital Signs Vital Signs Date Time Temp Pulse Resp B/P Pulse Ox O2 Delivery O2 Flow Rate FiO2 09/01/16 07:00 100.9 76 20 106/72 98 Room Air 100.9 08/31/16 20:00 2.0 I&O Intake and Output 09/01/16 07:00 Intake Total 800 ml Output Total 700 ml Balance 100 ml Intake Oral 800 ml Output Urine Total 700 ml # Voids 1 General: Alert, Oriented X3, Cooperative, No acute distress Abdomen: Soft, Other (mildly distended, tender across upper abdomen ) Labs Laboratory Tests Test 08/30/16 19:49 08/30/16 20:23 08/30/16 22:30 08/31/16 06:15 White Blood Count 5.8x10^3/uL (4.0-11.0) 5.9x10^3/uL (4.0-11.0) Red Blood Count 5.25x10^6/uL (4.30-5.70) 4.96x10^6/uL (4.30-5.70) Hemoglobin 16.0g/dL (13.0-17.5) 15.0g/dL (13.0-17.5) Hematocrit 47.3% (39.0-53.0) 45.0% (39.0-53.0) Mean Corpuscular Volume 90fL (79-100) 91fL (79-100) Mean Corpuscular Hemoglobin 31pg (25-35) 30pg (25-35) Mean Corpuscular Hemoglobin Concent 34g/dL (31-37) 33g/dL (31-37) Red Cell Distribution Width 12.8% (11.5-14.5) 12.8% (11.5-14.5) Platelet Count 205x10^3/uL (140-400) 171x10^3/uL (140-400) Neutrophils (%) (Auto) 77% (31-73) 81% (31-73) Lymphocytes (%) (Auto) 13% (24-48) 10% (24-48) Monocytes (%) (Auto) 10% (0-9) 9% (0-9) Eosinophils (%) (Auto) 0% (0-3) 1% (0-3) Basophils (%) (Auto) 0% (0-3) 0% (0-3) Neutrophils # (Auto) 4.4x10^3uL (1.8-7.7) 4.8x10^3uL (1.8-7.7) Lymphocytes # (Auto) 0.7x10^3/uL (1.0-4.8) 0.6x10^3/uL (1.0-4.8) Monocytes # (Auto) 0.6x10^3/uL (0.0-1.1) 0.5x10^3/uL (0.0-1.1) Eosinophils # (Auto) 0.0x10^3/uL (0.0-0.7) 0.0x10^3/uL (0.0-0.7) Basophils # (Auto) 0.0x10^3/uL (0.0-0.2) 0.0x10^3/uL (0.0-0.2) Urine Collection Type Unknown Urine Color Jess Urine Clarity Turbid Urine pH 5.5 Urine Specific [place] 1.025 Urine Protein Tracemg/dL (NEG-TRACE) Urine Glucose (UA) Negativemg/dL (NEG) Urine Ketones (Stick) 15mg/dL (NEG) Urine Blood Trace (NEG) Urine Nitrite Negative (NEG) Urine Bilirubin Small (NEG) Urine Urobilinogen Dipstick 0.2mg/dL (0.2 mg/dL) Urine Leukocyte Esterase Trace (NEG) Urine RBC Occ/HPF (0-2) Urine WBC Occ/HPF (0-4) Urine Squamous Epithelial Cells Occ/LPF Urine Bacteria 0/HPF (0-FEW) Urine Mucus Mod/LPF Sodium Level 135mmol/L (136-145) 135mmol/L (136-145) Potassium Level 3.8mmol/L (3.5-5.1) 3.7mmol/L (3.5-5.1) Chloride Level 96mmol/L (98-107) 101mmol/L (98-107) Carbon Dioxide Level 24mmol/L (21-32) 22mmol/L (21-32) Anion Gap 15 (6-14) 12 (6-14) Blood Urea Nitrogen 11mg/dL (8-26) 11mg/dL (8-26) Creatinine 1.2mg/dL (0.7-1.3) 1.1mg/dL (0.7-1.3) Estimated GFR (Cockcroft-Gault) 78.0 86.2 BUN/Creatinine Ratio 9 (6-20) Glucose Level 168mg/dL (70-99) 187mg/dL (70-99) Calcium Level 8.9mg/dL (8.5-10.1) 8.2mg/dL (8.5-10.1) Total Bilirubin 0.5mg/dL (0.2-1.0) Aspartate Amino Transf (AST/SGOT) 20U/L (15-37) Alanine Aminotransferase (ALT/SGPT) 27U/L (16-63) Alkaline Phosphatase 56U/L (46-116) Total Protein 7.7g/dL (6.4-8.2) Albumin 3.3g/dL (3.4-5.0) Albumin/Globulin Ratio 0.8 (1.0-1.7) Lipase 76U/L (73-393) Lactic Acid Level 1.8mmol/L (0.4-2.0) Test 09/01/16 06:10 09/01/16 07:40 White Blood Count 11.2x10^3/uL (4.0-11.0) Red Blood Count 4.33x10^6/uL (4.30-5.70) Hemoglobin 13.0g/dL (13.0-17.5) Hematocrit 39.4% (39.0-53.0) Mean Corpuscular Volume 91fL (79-100) Mean Corpuscular Hemoglobin 30pg (25-35) Mean Corpuscular Hemoglobin Concent 33g/dL (31-37) Red Cell Distribution Width 12.9% (11.5-14.5) Platelet Count 157x10^3/uL (140-400) Neutrophils (%) (Auto) 85% (31-73) Lymphocytes (%) (Auto) 8% (24-48) Monocytes (%) (Auto) 6% (0-9) Eosinophils (%) (Auto) 0% (0-3) Basophils (%) (Auto) 0% (0-3) Neutrophils # (Auto) 9.6x10^3uL (1.8-7.7) Lymphocytes # (Auto) 0.9x10^3/uL (1.0-4.8) Monocytes # (Auto) 0.7x10^3/uL (0.0-1.1) Eosinophils # (Auto) 0.0x10^3/uL (0.0-0.7) Basophils # (Auto) 0.0x10^3/uL (0.0-0.2) Segmented Neutrophils % 84% (35-66) Lymphocytes % 12% (24-48) Monocytes % 4% (0-10) Platelet Estimate Adequate (ADEQUATE) Lactic Acid Level 1.2mmol/L (0.4-2.0) Sodium Level 139mmol/L (136-145) Potassium Level 4.6mmol/L (3.5-5.1) Chloride Level 104mmol/L (98-107) Carbon Dioxide Level 24mmol/L (21-32) Anion Gap 11 (6-14) Blood Urea Nitrogen 10mg/dL (8-26) Creatinine 0.9mg/dL (0.7-1.3) Estimated GFR (Cockcroft-Gault) 108.7 Glucose Level 159mg/dL (70-99) Calcium Level 8.0mg/dL (8.5-10.1) Laboratory Tests Test 09/01/16 06:10 09/01/16 07:40 White Blood Count 11.2x10^3/uL (4.0-11.0) Red Blood Count 4.33x10^6/uL (4.30-5.70) Hemoglobin 13.0g/dL (13.0-17.5) Hematocrit 39.4% (39.0-53.0) Mean Corpuscular Volume 91fL (79-100) Mean Corpuscular Hemoglobin 30pg (25-35) Mean Corpuscular Hemoglobin Concent 33g/dL (31-37) Red Cell Distribution Width 12.9% (11.5-14.5) Platelet Count 157x10^3/uL (140-400) Neutrophils (%) (Auto) 85% (31-73) Lymphocytes (%) (Auto) 8% (24-48) Monocytes (%) (Auto) 6% (0-9) Eosinophils (%) (Auto) 0% (0-3) Basophils (%) (Auto) 0% (0-3) Neutrophils # (Auto) 9.6x10^3uL (1.8-7.7) Lymphocytes # (Auto) 0.9x10^3/uL (1.0-4.8) Monocytes # (Auto) 0.7x10^3/uL (0.0-1.1) Eosinophils # (Auto) 0.0x10^3/uL (0.0-0.7) Basophils # (Auto) 0.0x10^3/uL (0.0-0.2) Segmented Neutrophils % 84% (35-66) Lymphocytes % 12% (24-48) Monocytes % 4% (0-10) Platelet Estimate Adequate (ADEQUATE) Lactic Acid Level 1.2mmol/L (0.4-2.0) Sodium Level 139mmol/L (136-145) Potassium Level 4.6mmol/L (3.5-5.1) Chloride Level 104mmol/L (98-107) Carbon Dioxide Level 24mmol/L (21-32) Anion Gap 11 (6-14) Blood Urea Nitrogen 10mg/dL (8-26) Creatinine 0.9mg/dL (0.7-1.3) Estimated GFR (Cockcroft-Gault) 108.7 Glucose Level 159mg/dL (70-99) Calcium Level 8.0mg/dL (8.5-10.1) Problem List Problems Medical Problems: (1) Abdominal pain Status: Acute (2) Pneumoperitoneum Status: Acute Assessment/Plan afebrile continue pain will review with Dr López Problems: RODRIGUE LÓPEZ MD 09/01/16 1331: SURGICAL PROGRESS NOTE Assessment/Plan I saw Se[facility] earlier agree with above Dr Workman to follow for me over the weekend. I discussed current plan with him ( gut rest, IV abx, expectant treatment). Problems: AASHISH LEYVA APRN Sep 01, 2016 11:01 RODRIGUE LÓPEZ MD Sep 01, 2016 13:31
[2016-09-01 15:00] VITALS: BP 133/72
[2016-09-01] MEDS: AA 3%/ELECTROLYTE-TPN SOLN/GLY 1,000 ML IV SCH (15:35)
--- NOTE | 2016-09-01 15:59 | PDOC ---
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 cont NPO History of Present Illness History of Present Illness sleeping prior pain /10 w/ BILLBOARD INSTALLER, he looks more calm no stool Vitals Vitals Vital Signs Date Time Temp Pulse Resp B/P Pulse Ox O2 Delivery O2 Flow Rate FiO2 09/01/16 11:00 99.3 114 22 140/89 96 Nasal Cannula 2.0 99.3 Physical Exam General: Alert, Oriented X3, Cooperative, No acute distress Heart: Regular rate, No murmurs Lungs: Clear Abdomen: Soft, Other (mildly distended, tender across upper abdomen ) Extremities: No clubbing, No cyanosis, No edema, Normal pulses Skin: No rashes, No breakdown Labs LABS Laboratory Tests Test 09/01/16 06:10 09/01/16 07:40 White Blood Count 11.2x10^3/uL (4.0-11.0) Red Blood Count 4.33x10^6/uL (4.30-5.70) Hemoglobin 13.0g/dL (13.0-17.5) Hematocrit 39.4% (39.0-53.0) Mean Corpuscular Volume 91fL (79-100) Mean Corpuscular Hemoglobin 30pg (25-35) Mean Corpuscular Hemoglobin Concent 33g/dL (31-37) Red Cell Distribution Width 12.9% (11.5-14.5) Platelet Count 157x10^3/uL (140-400) Neutrophils (%) (Auto) 85% (31-73) Lymphocytes (%) (Auto) 8% (24-48) Monocytes (%) (Auto) 6% (0-9) Eosinophils (%) (Auto) 0% (0-3) Basophils (%) (Auto) 0% (0-3) Neutrophils # (Auto) 9.6x10^3uL (1.8-7.7) Lymphocytes # (Auto) 0.9x10^3/uL (1.0-4.8) Monocytes # (Auto) 0.7x10^3/uL (0.0-1.1) Eosinophils # (Auto) 0.0x10^3/uL (0.0-0.7) Basophils # (Auto) 0.0x10^3/uL (0.0-0.2) Segmented Neutrophils % 84% (35-66) Lymphocytes % 12% (24-48) Monocytes % 4% (0-10) Platelet Estimate Adequate (ADEQUATE) Lactic Acid Level 1.2mmol/L (0.4-2.0) Sodium Level 139mmol/L (136-145) Potassium Level 4.6mmol/L (3.5-5.1) Chloride Level 104mmol/L (98-107) Carbon Dioxide Level 24mmol/L (21-32) Anion Gap 11 (6-14) Blood Urea Nitrogen 10mg/dL (8-26) Creatinine 0.9mg/dL (0.7-1.3) Estimated GFR (Cockcroft-Gault) 108.7 Glucose Level 159mg/dL (70-99) Calcium Level 8.0mg/dL (8.5-10.1) Review of Systems Review of Systems feels bloated, he has sensation of needing to stool, no tenesmus Assessment and Plan Assessmemt and Plan change IV fluid to procalamine GI and gen surg following Problems Medical Problems: (1) Abdominal pain Status: Acute (2) Pneumoperitoneum Status: Acute Problems: Comment Review of Relevant I have reviewed the following items crystal (where applicable) has been applied. Labs Laboratory Tests Test 08/30/16 19:49 08/30/16 20:23 08/30/16 22:30 08/31/16 06:15 White Blood Count 5.8x10^3/uL (4.0-11.0) 5.9x10^3/uL (4.0-11.0) Red Blood Count 5.25x10^6/uL (4.30-5.70) 4.96x10^6/uL (4.30-5.70) Hemoglobin 16.0g/dL (13.0-17.5) 15.0g/dL (13.0-17.5) Hematocrit 47.3% (39.0-53.0) 45.0% (39.0-53.0) Mean Corpuscular Volume 90fL (79-100) 91fL (79-100) Mean Corpuscular Hemoglobin 31pg (25-35) 30pg (25-35) Mean Corpuscular Hemoglobin Concent 34g/dL (31-37) 33g/dL (31-37) Red Cell Distribution Width 12.8% (11.5-14.5) 12.8% (11.5-14.5) Platelet Count 205x10^3/uL (140-400) 171x10^3/uL (140-400) Neutrophils (%) (Auto) 77% (31-73) 81% (31-73) Lymphocytes (%) (Auto) 13% (24-48) 10% (24-48) Monocytes (%) (Auto) 10% (0-9) 9% (0-9) Eosinophils (%) (Auto) 0% (0-3) 1% (0-3) Basophils (%) (Auto) 0% (0-3) 0% (0-3) Neutrophils # (Auto) 4.4x10^3uL (1.8-7.7) 4.8x10^3uL (1.8-7.7) Lymphocytes # (Auto) 0.7x10^3/uL (1.0-4.8) 0.6x10^3/uL (1.0-4.8) Monocytes # (Auto) 0.6x10^3/uL (0.0-1.1) 0.5x10^3/uL (0.0-1.1) Eosinophils # (Auto) 0.0x10^3/uL (0.0-0.7) 0.0x10^3/uL (0.0-0.7) Basophils # (Auto) 0.0x10^3/uL (0.0-0.2) 0.0x10^3/uL (0.0-0.2) Urine Collection Type Unknown Urine Color Jess Urine Clarity Turbid Urine pH 5.5 Urine Specific [place] 1.025 Urine Protein Tracemg/dL (NEG-TRACE) Urine Glucose (UA) Negativemg/dL (NEG) Urine Ketones (Stick) 15mg/dL (NEG) Urine Blood Trace (NEG) Urine Nitrite Negative (NEG) Urine Bilirubin Small (NEG) Urine Urobilinogen Dipstick 0.2mg/dL (0.2 mg/dL) Urine Leukocyte Esterase Trace (NEG) Urine RBC Occ/HPF (0-2) Urine WBC Occ/HPF (0-4) Urine Squamous Epithelial Cells Occ/LPF Urine Bacteria 0/HPF (0-FEW) Urine Mucus Mod/LPF Sodium Level 135mmol/L (136-145) 135mmol/L (136-145) Potassium Level 3.8mmol/L (3.5-5.1) 3.7mmol/L (3.5-5.1) Chloride Level 96mmol/L (98-107) 101mmol/L (98-107) Carbon Dioxide Level 24mmol/L (21-32) 22mmol/L (21-32) Anion Gap 15 (6-14) 12 (6-14) Blood Urea Nitrogen 11mg/dL (8-26) 11mg/dL (8-26) Creatinine 1.2mg/dL (0.7-1.3) 1.1mg/dL (0.7-1.3) Estimated GFR (Cockcroft-Gault) 78.0 86.2 BUN/Creatinine Ratio 9 (6-20) Glucose Level 168mg/dL (70-99) 187mg/dL (70-99) Calcium Level 8.9mg/dL (8.5-10.1) 8.2mg/dL (8.5-10.1) Total Bilirubin 0.5mg/dL (0.2-1.0) Aspartate Amino Transf (AST/SGOT) 20U/L (15-37) Alanine Aminotransferase (ALT/SGPT) 27U/L (16-63) Alkaline Phosphatase 56U/L (46-116) Total Protein 7.7g/dL (6.4-8.2) Albumin 3.3g/dL (3.4-5.0) Albumin/Globulin Ratio 0.8 (1.0-1.7) Lipase 76U/L (73-393) Lactic Acid Level 1.8mmol/L (0.4-2.0) Test 09/01/16 06:10 09/01/16 07:40 White Blood Count 11.2x10^3/uL (4.0-11.0) Red Blood Count 4.33x10^6/uL (4.30-5.70) Hemoglobin 13.0g/dL (13.0-17.5) Hematocrit 39.4% (39.0-53.0) Mean Corpuscular Volume 91fL (79-100) Mean Corpuscular Hemoglobin 30pg (25-35) Mean Corpuscular Hemoglobin Concent 33g/dL (31-37) Red Cell Distribution Width 12.9% (11.5-14.5) Platelet Count 157x10^3/uL (140-400) Neutrophils (%) (Auto) 85% (31-73) Lymphocytes (%) (Auto) 8% (24-48) Monocytes (%) (Auto) 6% (0-9) Eosinophils (%) (Auto) 0% (0-3) Basophils (%) (Auto) 0% (0-3) Neutrophils # (Auto) 9.6x10^3uL (1.8-7.7) Lymphocytes # (Auto) 0.9x10^3/uL (1.0-4.8) Monocytes # (Auto) 0.7x10^3/uL (0.0-1.1) Eosinophils # (Auto) 0.0x10^3/uL (0.0-0.7) Basophils # (Auto) 0.0x10^3/uL (0.0-0.2) Segmented Neutrophils % 84% (35-66) Lymphocytes % 12% (24-48) Monocytes % 4% (0-10) Platelet Estimate Adequate (ADEQUATE) Lactic Acid Level 1.2mmol/L (0.4-2.0) Sodium Level 139mmol/L (136-145) Potassium Level 4.6mmol/L (3.5-5.1) Chloride Level 104mmol/L (98-107) Carbon Dioxide Level 24mmol/L (21-32) Anion Gap 11 (6-14) Blood Urea Nitrogen 10mg/dL (8-26) Creatinine 0.9mg/dL (0.7-1.3) Estimated GFR (Cockcroft-Gault) 108.7 Glucose Level 159mg/dL (70-99) Calcium Level 8.0mg/dL (8.5-10.1) Laboratory Tests Test 09/01/16 06:10 09/01/16 07:40 White Blood Count 11.2x10^3/uL (4.0-11.0) Red Blood Count 4.33x10^6/uL (4.30-5.70) Hemoglobin 13.0g/dL (13.0-17.5) Hematocrit 39.4% (39.0-53.0) Mean Corpuscular Volume 91fL (79-100) Mean Corpuscular Hemoglobin 30pg (25-35) Mean Corpuscular Hemoglobin Concent 33g/dL (31-37) Red Cell Distribution Width 12.9% (11.5-14.5) Platelet Count 157x10^3/uL (140-400) Neutrophils (%) (Auto) 85% (31-73) Lymphocytes (%) (Auto) 8% (24-48) Monocytes (%) (Auto) 6% (0-9) Eosinophils (%) (Auto) 0% (0-3) Basophils (%) (Auto) 0% (0-3) Neutrophils # (Auto) 9.6x10^3uL (1.8-7.7) Lymphocytes # (Auto) 0.9x10^3/uL (1.0-4.8) Monocytes # (Auto) 0.7x10^3/uL (0.0-1.1) Eosinophils # (Auto) 0.0x10^3/uL (0.0-0.7) Basophils # (Auto) 0.0x10^3/uL (0.0-0.2) Segmented Neutrophils % 84% (35-66) Lymphocytes % 12% (24-48) Monocytes % 4% (0-10) Platelet Estimate Adequate (ADEQUATE) Lactic Acid Level 1.2mmol/L (0.4-2.0) Sodium Level 139mmol/L (136-145) Potassium Level 4.6mmol/L (3.5-5.1) Chloride Level 104mmol/L (98-107) Carbon Dioxide Level 24mmol/L (21-32) Anion Gap 11 (6-14) Blood Urea Nitrogen 10mg/dL (8-26) Creatinine 0.9mg/dL (0.7-1.3) Estimated GFR (Cockcroft-Gault) 108.7 Glucose Level 159mg/dL (70-99) Calcium Level 8.0mg/dL (8.5-10.1) Microbiology 08/30/16 Blood Culture - Preliminary, Resulted NO GROWTH AFTER 1 DAY 08/30/16 Urine Culture - Final, Complete 08/30/16 Urine Culture Result 1 (TOAN) - Final, Complete Medications Current Medications Sodium Chloride (Iv Sodium Chloride 0.9% 1000ml Bag) 1,000 ml @ 1,000 mls/hr Q1H IV Last administered on 08/30/16 19:58; Start 08/30/16 at 19:45; Stop 07/06 at 20:44; Status DC Morphine Sulfate 4 mg 1X ONCE IV Last administered on 08/30/16 19:58; Start 08/30/16 at 19:45; Stop 08/30/16 at 19:46; Status DC Ondansetron HCl (Zofran) 4 mg 1X ONCE IV Last administered on 08/30/16 19:57 ; Start 08/30/16 at 19:45; Stop 08/30/16 at 19:46; Status DC Iohexol (Omnipaque 300 Mg/ml) 75 ml 1X ONCE IV Last administered on 08/30/16 20:57; Start 08/30/16 at 20:00; Stop 08/30/16 at 20:01; Status DC Morphine Sulfate 4 mg 1X ONCE IV Last administered on 08/30/16 22:22; Start 08/30/16 at 21:45; Stop 08/30/16 at 21:46; Status DC Piperacillin Sod/ Tazobactam Sod 1 each 1 each PRN DAILY PRN MC SEE COMMENTS; Start 08/30/16 at 21:45 Piperacillin Sod/ Tazobactam Sod/ Sodium Chloride (Zosyn/Iv Sodium Chloride 0.9 % 50ml) 50 ml @ 100 mls/hr Q6HRS IV Last administered on 09/01/16 12:16; Start 08/30/16 at 22:00 Ondansetron HCl (Zofran) 4 mg PRN Q8HRS PRN IV NAUSEA/VOMITING; Start 08/30/16 at 22:30; Stop 08/31/16 at 22:29; Status DC Morphine Sulfate 4 mg 4 mg PRN Q2HR PRN IV PAIN Last administered on 08/30/16 23:16; Start 08/30/16 at 22:30; Stop 08/31/16 at 22:29; Status DC Sodium Chloride (Iv Sodium Chloride 0.9% 1000ml Bag) 1,000 ml @ 125 mls/hr Q8H IV Last administered on 08/31/16 09:13; Start 08/30/16 at 22:30; Stop at 13:05; Status DC Acetaminophen 650 mg 650 mg PRN Q4HRS PRN PO FEVER Last administered on 23:15; Start 08/30/16 at 22:30; Stop 08/31/16 at 22:29; Status DC Hydromorphone HCl 30 ml @ 0 mls/hr CONT PRN PRN IV PROTOCOL Last administered on 08/31/16 02:52; Start 08/30/16 at 23:30 Potassium Chloride/Dextrose/ Sod Cl 1,000 ml @ 100 mls/hr Q10H IV Last administered on 09/01/16 03:52; Start 08/31/16 at 13:15; Stop 09/01/16 at 14:37 ; Status DC Sodium Chloride 1,000 ml @ 1,000 mls/hr 1X ONCE IV Last administered on 14:24; Start 08/31/16 at 13:15; Stop 08/31/16 at 14:14; Status DC Albumin Human (Plasmanate) 500 ml @ 125 mls/hr 1X ONCE IV Last administered on 08/31/16 17:21; Start 08/31/16 at 17:00; Stop 08/31/16 at 20:59; Status DC Ondansetron HCl 4 mg 4 mg PRN Q6HRS PRN IV NAUSEA/VOMITING; Start 08/31/16 at 22:45 Amino Acids/ Glycerin/ Electrolytes (Procalamine) 1,000 ml @ 100 mls/hr Q10H IV Last administered on 09/01/16 15:35; Start 09/01/16 at 14:45 Vitals/I & O Vital Sign - Last 24 Hours 08/31/16 08/31/16 08/31/16 08/31/16 16:30 19:00 20:00 23:00 Temp 97.1 98.6 98.3 97.1 98.6 98.3 Pulse 96 131 120 Resp 22 18 16 B/P 196/95 129/79 110/80 Pulse Ox 94 94 94 O2 Delivery Nasal Cannula Room Air Room Air Room Air O2 Flow Rate 2.0 2.0 09/01/16 09/01/16 09/01/16 07:00 08:05 11:00 Temp 100.9 99.3 100.9 99.3 Pulse 76 114 Resp 20 22 B/P 106/72 140/89 Pulse Ox 98 96 O2 Delivery Room Air Room Air Nasal Cannula O2 Flow Rate 2.0 Intake and Output 08/31/16 08/31/16 09/01/16 15:00 23:00 07:00 Intake Total 800 ml Output Total 250 ml 450 ml Balance -250 ml 350 ml CHELY BUSTILLO MD Sep 01, 2016 15:59
[2016-09-01 19:00] VITALS: BP 130/77
[2016-09-01] MEDS: ACETAMINOPHEN 650 MG SUPP.RECT. PR PRN (22:05)
[2016-09-01 23:00] VITALS: BP 123/69
[2016-09-02] MEDS: AA 3%/ELECTROLYTE-TPN SOLN/GLY 1,000 ML IV SCH ×2 (00:02→11:15)
[2016-09-02] MEDS: PIPERACILLIN/TAZOBACTAM 3.375 GM in IV NORMAL SALINE 50ML 50 ML IV SCH ×5 (00:02→23:36)
[2016-09-02 03:00] VITALS: BP 131/82
[2016-09-02 07:00] VITALS: BP 122/86
--- NOTE | 2016-09-02 10:08 | PDOC ---
SURGICAL PROGRESS NOTE Subjective Pt with c/o lower abdominal pain, some nausea, no emesis, no flatus or stool Vital Signs Vital Signs Date Time Temp Pulse Resp B/P Pulse Ox O2 Delivery O2 Flow Rate FiO2 09/02/16 07:30 Room Air 09/02/16 07:00 99.1 124 18 122/86 95 99.1 09/01/16 15:00 2.0 I&O Intake and Output 09/02/16 07:00 Intake Total 1560 ml Output Total 1000 ml Balance 560 ml Intake Oral 360 ml IV Total 1200 ml Output Urine Total 1000 ml General: Alert, Oriented X3, Cooperative, mild distress Abdomen: Soft, Other (mild diffuse TTP, no guarding) Labs Laboratory Tests Test 09/01/16 06:10 09/01/16 07:40 White Blood Count 11.2x10^3/uL (4.0-11.0) Red Blood Count 4.33x10^6/uL (4.30-5.70) Hemoglobin 13.0g/dL (13.0-17.5) Hematocrit 39.4% (39.0-53.0) Mean Corpuscular Volume 91fL (79-100) Mean Corpuscular Hemoglobin 30pg (25-35) Mean Corpuscular Hemoglobin Concent 33g/dL (31-37) Red Cell Distribution Width 12.9% (11.5-14.5) Platelet Count 157x10^3/uL (140-400) Neutrophils (%) (Auto) 85% (31-73) Lymphocytes (%) (Auto) 8% (24-48) Monocytes (%) (Auto) 6% (0-9) Eosinophils (%) (Auto) 0% (0-3) Basophils (%) (Auto) 0% (0-3) Neutrophils # (Auto) 9.6x10^3uL (1.8-7.7) Lymphocytes # (Auto) 0.9x10^3/uL (1.0-4.8) Monocytes # (Auto) 0.7x10^3/uL (0.0-1.1) Eosinophils # (Auto) 0.0x10^3/uL (0.0-0.7) Basophils # (Auto) 0.0x10^3/uL (0.0-0.2) Segmented Neutrophils % 84% (35-66) Lymphocytes % 12% (24-48) Monocytes % 4% (0-10) Platelet Estimate Adequate (ADEQUATE) Lactic Acid Level 1.2mmol/L (0.4-2.0) Sodium Level 139mmol/L (136-145) Potassium Level 4.6mmol/L (3.5-5.1) Chloride Level 104mmol/L (98-107) Carbon Dioxide Level 24mmol/L (21-32) Anion Gap 11 (6-14) Blood Urea Nitrogen 10mg/dL (8-26) Creatinine 0.9mg/dL (0.7-1.3) Estimated GFR (Cockcroft-Gault) 108.7 Glucose Level 159mg/dL (70-99) Calcium Level 8.0mg/dL (8.5-10.1) Problem List Problems Medical Problems: (1) Abdominal pain Status: Acute (2) Pneumoperitoneum Status: Acute Assessment/Plan pneumoperitoneum seems stable, HR 110-120's vs previously 130 will check full labs and CT in Am cont abx if CT demonstrates abscess, will consider drainage vs OR d/w pt and pt's family Problems: ELIZABETH WILSON MD Sep 02, 2016 10:08
[2016-09-02] MEDS ORDERED: SALIVA STIMULANT AGENT 44ML SPRAY BOTTLE. PO PRN (10:30)
--- NOTE | 2016-09-02 10:47 | PDOC ---
G I PROGRESS NOTE Reason for Follow-up Abd pain/abnl CT scan Subjective Pain persists Physical Exam Lungs BS CV S1 S2 ABD hypoative BS, + LLQ tendeness Review of Relevant I have reviewed the following items crystal (where applicable) has been applied. Labs Laboratory Tests Test 09/01/16 06:10 09/01/16 07:40 White Blood Count 11.2x10^3/uL (4.0-11.0) Red Blood Count 4.33x10^6/uL (4.30-5.70) Hemoglobin 13.0g/dL (13.0-17.5) Hematocrit 39.4% (39.0-53.0) Mean Corpuscular Volume 91fL (79-100) Mean Corpuscular Hemoglobin 30pg (25-35) Mean Corpuscular Hemoglobin Concent 33g/dL (31-37) Red Cell Distribution Width 12.9% (11.5-14.5) Platelet Count 157x10^3/uL (140-400) Neutrophils (%) (Auto) 85% (31-73) Lymphocytes (%) (Auto) 8% (24-48) Monocytes (%) (Auto) 6% (0-9) Eosinophils (%) (Auto) 0% (0-3) Basophils (%) (Auto) 0% (0-3) Neutrophils # (Auto) 9.6x10^3uL (1.8-7.7) Lymphocytes # (Auto) 0.9x10^3/uL (1.0-4.8) Monocytes # (Auto) 0.7x10^3/uL (0.0-1.1) Eosinophils # (Auto) 0.0x10^3/uL (0.0-0.7) Basophils # (Auto) 0.0x10^3/uL (0.0-0.2) Segmented Neutrophils % 84% (35-66) Lymphocytes % 12% (24-48) Monocytes % 4% (0-10) Platelet Estimate Adequate (ADEQUATE) Lactic Acid Level 1.2mmol/L (0.4-2.0) Sodium Level 139mmol/L (136-145) Potassium Level 4.6mmol/L (3.5-5.1) Chloride Level 104mmol/L (98-107) Carbon Dioxide Level 24mmol/L (21-32) Anion Gap 11 (6-14) Blood Urea Nitrogen 10mg/dL (8-26) Creatinine 0.9mg/dL (0.7-1.3) Estimated GFR (Cockcroft-Gault) 108.7 Glucose Level 159mg/dL (70-99) Calcium Level 8.0mg/dL (8.5-10.1) Microbiology 08/30/16 Blood Culture - Preliminary, Resulted NO GROWTH AFTER 2 DAYS 08/30/16 Urine Culture - Final, Complete 08/30/16 Urine Culture Result 1 (TOAN) - Final, Complete Medications Current Medications Sodium Chloride (Iv Sodium Chloride 0.9% 1000ml Bag) 1,000 ml @ 1,000 mls/hr Q1H IV Last administered on 08/30/16 19:58; Start 08/30/16 at 19:45; Stop 07/06 at 20:44; Status DC Morphine Sulfate 4 mg 1X ONCE IV Last administered on 08/30/16 19:58; Start 08/30/16 at 19:45; Stop 08/30/16 at 19:46; Status DC Ondansetron HCl (Zofran) 4 mg 1X ONCE IV Last administered on 08/30/16 19:57 ; Start 08/30/16 at 19:45; Stop 08/30/16 at 19:46; Status DC Iohexol (Omnipaque 300 Mg/ml) 75 ml 1X ONCE IV Last administered on 08/30/16 20:57; Start 08/30/16 at 20:00; Stop 08/30/16 at 20:01; Status DC Morphine Sulfate 4 mg 1X ONCE IV Last administered on 08/30/16 22:22; Start 08/30/16 at 21:45; Stop 08/30/16 at 21:46; Status DC Piperacillin Sod/ Tazobactam Sod 1 each 1 each PRN DAILY PRN MC SEE COMMENTS; Start 08/30/16 at 21:45 Piperacillin Sod/ Tazobactam Sod/ Sodium Chloride (Zosyn/Iv Sodium Chloride 0.9 % 50ml) 50 ml @ 100 mls/hr Q6HRS IV Last administered on 09/02/16 05:54; Start 08/30/16 at 22:00 Ondansetron HCl (Zofran) 4 mg PRN Q8HRS PRN IV NAUSEA/VOMITING; Start 08/30/16 at 22:30; Stop 08/31/16 at 22:29; Status DC Morphine Sulfate 4 mg 4 mg PRN Q2HR PRN IV PAIN Last administered on 08/30/16 23:16; Start 08/30/16 at 22:30; Stop 08/31/16 at 22:29; Status DC Sodium Chloride (Iv Sodium Chloride 0.9% 1000ml Bag) 1,000 ml @ 125 mls/hr Q8H IV Last administered on 08/31/16 09:13; Start 08/30/16 at 22:30; Stop at 13:05; Status DC Acetaminophen 650 mg 650 mg PRN Q4HRS PRN PO FEVER Last administered on 23:15; Start 08/30/16 at 22:30; Stop 08/31/16 at 22:29; Status DC Hydromorphone HCl 30 ml @ 0 mls/hr CONT PRN PRN IV PROTOCOL Last administered on 08/31/16 02:52; Start 08/30/16 at 23:30 Potassium Chloride/Dextrose/ Sod Cl 1,000 ml @ 100 mls/hr Q10H IV Last administered on 09/01/16 03:52; Start 08/31/16 at 13:15; Stop 09/01/16 at 14:37 ; Status DC Sodium Chloride 1,000 ml @ 1,000 mls/hr 1X ONCE IV Last administered on 14:24; Start 08/31/16 at 13:15; Stop 08/31/16 at 14:14; Status DC Albumin Human (Plasmanate) 500 ml @ 125 mls/hr 1X ONCE IV Last administered on 08/31/16 17:21; Start 08/31/16 at 17:00; Stop 08/31/16 at 20:59; Status DC Ondansetron HCl 4 mg 4 mg PRN Q6HRS PRN IV NAUSEA/VOMITING; Start 08/31/16 at 22:45 Amino Acids/ Glycerin/ Electrolytes (Procalamine) 1,000 ml @ 100 mls/hr Q10H IV Last administered on 09/02/16 00:02; Start 09/01/16 at 14:45 Acetaminophen (Tylenol) 650 mg PRN Q4HRS PRN [place] MILD PAIN / TEMP Last administered on 09/01/16t 22:05; Start 09/01/16 at 20:30 Lorazepam (Ativan) 1 mg PRN Q4HRS PRN IV ANXIETY / AGITATION; Start 09/02/16 at 10:30 Saliva Substitute (Biotene Moisturizing Mouth) 2 spray PRN Q15MIN PRN PO DRY MOUTH; Start 09/02/16 at 10:30 Vitals/I & O Vital Sign - Last 24 Hours 09/01/16 09/01/16 09/01/16 09/01/16 11:00 15:00 19:00 20:06 Temp 99.3 101.0 100.2 99.3 101.0 100.2 Pulse 114 111 114 Resp 18 B/P 140/89 133/72 130/77 Pulse Ox 96 96 95 O2 Delivery Nasal Cannula Room Air Room Air Room Air O2 Flow Rate 2.0 2.0 09/01/16 09/02/16 09/02/16 09/02/16 23:00 03:00 07:00 07:30 Temp 97.9 99.3 99.1 97.9 99.3 99.1 Pulse 115 116 124 Resp 18 B/P 123/69 131/82 122/86 Pulse Ox 94 94 95 O2 Delivery Room Air Room Air Room Air Room Air Intake and Output 09/01/16 09/01/16 09/02/16 15:00 23:00 07:00 Intake Total 360 ml 0 ml 1200 ml Output Total 450 ml 250 ml 300 ml Balance -90 ml -250 ml 900 ml Problem List Problems Medical Problems: (1) Abdominal pain Status: Acute (2) Pneumoperitoneum Status: Acute Assessment LLQ abd pain- with probable diverticulitis, medical therapy, interval Ct if no improvement, surgery following PETER ARAGON MD Sep 02, 2016 10:47
[2016-09-02 11:00] VITALS: BP 131/85
[2016-09-02] MEDS: LORAZEPAM 2 MG/ML VIAL IV PRN ×2 (11:15→15:19)
--- NOTE | 2016-09-02 11:26 | PDOC ---
PROGRESS NOTES Chief Complaint Chief Complaint Acute abd pain colitis, microperf, possible crohns, on [employer] for abdomnial pain cont NPO History of Present Illness History of Present Illness sleeping prior pain / w/ [employer], he looks more calm no stool dry mouth, family complains that he has anxiety most of the day labs tomorrow Vitals Vitals Vital Signs Date Time Temp Pulse Resp B/P Pulse Ox O2 Delivery O2 Flow Rate FiO2 09/02/16 11:00 98.8 120 18 131/85 94 Room Air 98.8 09/01/16 15:00 2.0 Physical Exam General: Alert, Oriented X3, Cooperative, mild distress Heart: Regular rate, No murmurs Lungs: Clear Abdomen: Soft, Other (mild diffuse TTP, no guarding) Extremities: No clubbing, No cyanosis, No edema, Normal pulses Skin: No rashes, No breakdown Review of Systems Review of Systems anxiety, dry mouth hungry Assessment and Plan Assessmemt and Plan Problems Medical Problems: (1) Abdominal pain Status: Acute (2) Pneumoperitoneum Status: Acute Problems: Comment Review of Relevant I have reviewed the following items crystal (where applicable) has been applied. Labs Laboratory Tests Test 09/01/16 06:10 09/01/16 07:40 White Blood Count 11.2x10^3/uL (4.0-11.0) Red Blood Count 4.33x10^6/uL (4.30-5.70) Hemoglobin 13.0g/dL (13.0-17.5) Hematocrit 39.4% (39.0-53.0) Mean Corpuscular Volume 91fL (79-100) Mean Corpuscular Hemoglobin 30pg (25-35) Mean Corpuscular Hemoglobin Concent 33g/dL (31-37) Red Cell Distribution Width 12.9% (11.5-14.5) Platelet Count 157x10^3/uL (140-400) Neutrophils (%) (Auto) 85% (31-73) Lymphocytes (%) (Auto) 8% (24-48) Monocytes (%) (Auto) 6% (0-9) Eosinophils (%) (Auto) 0% (0-3) Basophils (%) (Auto) 0% (0-3) Neutrophils # (Auto) 9.6x10^3uL (1.8-7.7) Lymphocytes # (Auto) 0.9x10^3/uL (1.0-4.8) Monocytes # (Auto) 0.7x10^3/uL (0.0-1.1) Eosinophils # (Auto) 0.0x10^3/uL (0.0-0.7) Basophils # (Auto) 0.0x10^3/uL (0.0-0.2) Segmented Neutrophils % 84% (35-66) Lymphocytes % 12% (24-48) Monocytes % 4% (0-10) Platelet Estimate Adequate (ADEQUATE) Lactic Acid Level 1.2mmol/L (0.4-2.0) Sodium Level 139mmol/L (136-145) Potassium Level 4.6mmol/L (3.5-5.1) Chloride Level 104mmol/L (98-107) Carbon Dioxide Level 24mmol/L (21-32) Anion Gap 11 (6-14) Blood Urea Nitrogen 10mg/dL (8-26) Creatinine 0.9mg/dL (0.7-1.3) Estimated GFR (Cockcroft-Gault) 108.7 Glucose Level 159mg/dL (70-99) Calcium Level 8.0mg/dL (8.5-10.1) Microbiology 08/30/16 Blood Culture - Preliminary, Resulted NO GROWTH AFTER 2 DAYS 08/30/16 Urine Culture - Final, Complete 08/30/16 Urine Culture Result 1 (TOAN) - Final, Complete Medications Current Medications Sodium Chloride (Iv Sodium Chloride 0.9% 1000ml Bag) 1,000 ml @ 1,000 mls/hr Q1H IV Last administered on 08/30/16 19:58; Start 08/30/16 at 19:45; Stop 07/06 at 20:44; Status DC Morphine Sulfate 4 mg 1X ONCE IV Last administered on 08/30/16 19:58; Start 08/30/16 at 19:45; Stop 08/30/16 at 19:46; Status DC Ondansetron HCl (Zofran) 4 mg 1X ONCE IV Last administered on 08/30/16 19:57 ; Start 08/30/16 at 19:45; Stop 08/30/16 at 19:46; Status DC Iohexol (Omnipaque 300 Mg/ml) 75 ml 1X ONCE IV Last administered on 08/30/16 20:57; Start 08/30/16 at 20:00; Stop 08/30/16 at 20:01; Status DC Morphine Sulfate 4 mg 1X ONCE IV Last administered on 08/30/16 22:22; Start 08/30/16 at 21:45; Stop 08/30/16 at 21:46; Status DC Piperacillin Sod/ Tazobactam Sod 1 each 1 each PRN DAILY PRN MC SEE COMMENTS; Start 08/30/16 at 21:45 Piperacillin Sod/ Tazobactam Sod/ Sodium Chloride (Zosyn/Iv Sodium Chloride 0.9 % 50ml) 50 ml @ 100 mls/hr Q6HRS IV Last administered on 09/02/16 11:19; Start 08/30/16 at 22:00 Ondansetron HCl (Zofran) 4 mg PRN Q8HRS PRN IV NAUSEA/VOMITING; Start 08/30/16 at 22:30; Stop 08/31/16 at 22:29; Status DC Morphine Sulfate 4 mg 4 mg PRN Q2HR PRN IV PAIN Last administered on 08/30/16 23:16; Start 08/30/16 at 22:30; Stop 08/31/16 at 22:29; Status DC Sodium Chloride (Iv Sodium Chloride 0.9% 1000ml Bag) 1,000 ml @ 125 mls/hr Q8H IV Last administered on 08/31/16 09:13; Start 08/30/16 at 22:30; Stop at 13:05; Status DC Acetaminophen 650 mg 650 mg PRN Q4HRS PRN PO FEVER Last administered on 23:15; Start 08/30/16 at 22:30; Stop 08/31/16 at 22:29; Status DC Hydromorphone HCl 30 ml @ 0 mls/hr CONT PRN PRN IV PROTOCOL Last administered on 08/31/16 02:52; Start 08/30/16 at 23:30 Potassium Chloride/Dextrose/ Sod Cl 1,000 ml @ 100 mls/hr Q10H IV Last administered on 09/01/16 03:52; Start 08/31/16 at 13:15; Stop 09/01/16 at 14:37 ; Status DC Sodium Chloride 1,000 ml @ 1,000 mls/hr 1X ONCE IV Last administered on 14:24; Start 08/31/16 at 13:15; Stop 08/31/16 at 14:14; Status DC Albumin Human (Plasmanate) 500 ml @ 125 mls/hr 1X ONCE IV Last administered on 08/31/16 17:21; Start 08/31/16 at 17:00; Stop 08/31/16 at 20:59; Status DC Ondansetron HCl 4 mg 4 mg PRN Q6HRS PRN IV NAUSEA/VOMITING; Start 08/31/16 at 22:45 Amino Acids/ Glycerin/ Electrolytes (Procalamine) 1,000 ml @ 100 mls/hr Q10H IV Last administered on 09/02/16 11:15; Start 09/01/16 at 14:45 Acetaminophen (Tylenol) 650 mg PRN Q4HRS PRN [place] MILD PAIN / TEMP Last administered on 09/01/16 22:05; Start 09/01/16 at 20:30 Lorazepam (Ativan) 1 mg PRN Q4HRS PRN IV ANXIETY / AGITATION Last administered on 09/02/16 11:15; Start 09/02/16 at 10:30 Saliva Substitute (Biotene Moisturizing Mouth) 2 spray PRN Q15MIN PRN PO DRY MOUTH; Start 09/02/16 at 10:30 Vitals/I & O Vital Sign - Last 24 Hours 09/01/16 09/01/16 09/01/16 09/01/16 15:00 19:00 20:06 23:00 Temp 101.0 100.2 97.9 101.0 100.2 97.9 Pulse 111 114 115 Resp 24 18 18 B/P 133/72 130/77 123/69 Pulse Ox 96 95 94 O2 Delivery Room Air Room Air Room Air Room Air O2 Flow Rate 2.0 09/02/16 09/02/16 09/02/16 09/02/16 03:00 07:00 07:30 11:00 Temp 99.3 99.1 98.8 99.3 99.1 98.8 Pulse 116 124 120 Resp 18 18 18 B/P 131/82 122/86 131/85 Pulse Ox 94 95 94 O2 Delivery Room Air Room Air Room Air Room Air Intake and Output 09/01/16 09/01/16 09/02/16 15:00 23:00 07:00 Intake Total 360 ml 0 ml 1200 ml Output Total 450 ml 250 ml 300 ml Balance -90 ml -250 ml 900 ml CHELY BUSTILLO MD Sep 02, 2016 11:26
[2016-09-02 15:00] VITALS: BP 136/88
[2016-09-02] MEDS: HYDROMORPHONE STANDARD PCA 30 ML IV PRN (15:28)
[2016-09-02 20:00] VITALS: BP 128/85
[2016-09-02 23:19] VITALS: BP 129/84
[2016-09-03] MEDS: AA 3%/ELECTROLYTE-TPN SOLN/GLY 1,000 ML IV SCH ×4 (01:55→23:59)
[2016-09-03 03:26] VITALS: BP 126/90
[2016-09-03 05:15] LABS: BASO % 0 % (0-3); EOS % 0 % (0-3); HEMATOCRIT 38.4 % (39.0-53.0); HEMOGLOBIN 12.7 g/dL (13.0-17.5); LYMPH # 1.4 x10^3/uL (1.0-4.8); LYMPH % 11 % (24-48); MEAN CORPUSCULAR HEMOGLOBIN 30 pg (25-35); MEAN CORPUSCULAR HGB CONC 33 g/dL (31-37); MEAN CORPUSCULAR VOLUME 89 fL (79-100); MONO % 4 % (0-9); NEUT % 85 % (31-73); PLATELET COUNT 279 x10^3/uL (140-400); RED BLOOD COUNT 4.31 x10^6/uL (4.30-5.70); RED CELL DISTRIBUTION WIDTH 12.7 % (11.5-14.5); WHITE BLOOD COUNT 13.8 x10^3/uL (4.0-11.0)
[2016-09-03 05:34] LABS: ALBUMIN 2.2 g/dL (3.4-5.0); ALBUMIN/GLOBULIN RATIO 0.5 (1.0-1.7); CALCIUM 8.4 mg/dL (8.5-10.1); CREATININE 0.8 mg/dL (0.7-1.3); GFR 124.5; TOTAL BILIRUBIN 0.6 mg/dL (0.2-1.0); TOTAL PROTEIN 6.7 g/dL (6.4-8.2)
[2016-09-03] MEDS: PIPERACILLIN/TAZOBACTAM 3.375 GM in IV NORMAL SALINE 50ML 50 ML IV SCH ×4 (05:44→23:59)
[2016-09-03 07:00] VITALS: BP 131/88
[2016-09-03] MEDS ORDERED: CONTRAST GIVEN MC PRN (08:45)
[2016-09-03] MEDS ORDERED: IOHEXOL 240 MG/ML 50ML VIAL. PO ONE (09:00)
[2016-09-03] MEDS ORDERED: IOHEXOL 300 MG/ML 75 ML VIAL IV ONE (09:00)
--- NOTE | 2016-09-03 10:54 | RAD ---
CT abdomen and pelvis with IV contrast History: Follow-up pneumoperitoneum. Comparison: CT abdomen pelvis 08/30/2016 Technique: After administration of oral and intravenous contrast, 75 mL Omnipaque 300, helical CT of the abdomen and pelvis was performed from the lung bases through the ischial tuberosities. Axial, sagittal, and coronal reconstructions were obtained. One or more of the following individualized dose reduction techniques were utilized for the study: Automated exposure control Adjustment of mA and/or kV according to patient's size Use of iterative reconstruction technique. Findings: Images of the lower chest demonstrate trace bilateral pleural effusions. Left lower lobe atelectasis is seen. Liver, spleen, pancreas, and bilateral adrenal glands are unremarkable. Gallbladder is unremarkable. Bilateral kidneys enhance symmetrically. Proximal loops of bowel are dilated up to 5.5 cm. No discrete transition point is identified, although there are multiple loops of small bowel which demonstrate mildly irregular wall thickening, thought to be involving the distal jejunum/proximal ileum. The distal ileum demonstrates presence of intraluminal gas and normal caliber. There is interval development of a large peripherally enhancing fluid collection involving the right lower abdomen and upper/mid pelvis. This fluid collection is estimated to measure 12 x 7 cm in axial dimension x 10 cm in craniocaudal dimension; this fluid collection demonstrate presence of the several foci of internal gas. There is a separate peripherally enhancing fluid collection which extends from the pouch of Alberto to the left side of the lower pelvis. This second fluid collection is estimated to measure 9 x 4 cm in axial dimension x 3 cm in craniocaudal dimension. There is a focus of gas which is adjacent to the sigmoid colon and which may communicate with the second, small abscess in the pouch of Alberto. It is uncertain if there is an additional abscess in the root of the mesentery versus loop of bowel unopacified by oral contrast. Impression: 1. Interval development of at least 2 abscesses involving the abdomen and pelvis. The larger involves the right aspect of the lower abdomen and upper/mid pelvis. The smaller involves the pouch of Alberto and may communicate with the lumen of the sigmoid colon. Consequently, the perforation of the sigmoid colon that could be due to diverticulitis versus inflammatory bowel disease. 2. Question additional root mesentery abscess versus unopacified small bowel. 3. There is evidence of dilated proximal small bowel loops of bowel. This could indicate ileus versus partial small bowel obstruction. 4. There appear to be several loops of small bowel, probably distal jejunum and proximal ileum which demonstrate wall thickening compatible with inflammatory change.
[2016-09-03 11:00] VITALS: BP 122/89
--- NOTE | 2016-09-03 11:51 | PDOC ---
SURGICAL PROGRESS NOTE Subjective Pt reports feeling about the same, noted some belching, mild nausea, but no emesis, no flatus Vital Signs Vital Signs Date Time Temp Pulse Resp B/P Pulse Ox O2 Delivery O2 Flow Rate FiO2 09/03/16 07:50 Room Air 09/03/16 07:00 99.7 129 20 131/88 91 99.7 09/02/16 20:15 2.0 I&O Intake and Output 09/03/16 07:00 Intake Total 0 ml Balance 0 ml Intake Oral 0 ml # Voids 5 General: Alert, Oriented X3, Cooperative, mild distress Abdomen: Soft, Other (distended, mild diffuse TTP) Labs Laboratory Tests Test 09/03/16 04:20 White Blood Count 13.8x10^3/uL (4.0-11.0) Red Blood Count 4.31x10^6/uL (4.30-5.70) Hemoglobin 12.7g/dL (13.0-17.5) Hematocrit 38.4% (39.0-53.0) Mean Corpuscular Volume 89fL (79-100) Mean Corpuscular Hemoglobin 30pg (25-35) Mean Corpuscular Hemoglobin Concent 33g/dL (31-37) Red Cell Distribution Width 12.7% (11.5-14.5) Platelet Count 279x10^3/uL (140-400) Neutrophils (%) (Auto) 85% (31-73) Lymphocytes (%) (Auto) 11% (24-48) Monocytes (%) (Auto) 4% (0-9) Eosinophils (%) (Auto) 0% (0-3) Basophils (%) (Auto) 0% (0-3) Neutrophils # (Auto) 11.7x10^3uL (1.8-7.7) Lymphocytes # (Auto) 1.4x10^3/uL (1.0-4.8) Monocytes # (Auto) 0.6x10^3/uL (0.0-1.1) Eosinophils # (Auto) 0.0x10^3/uL (0.0-0.7) Basophils # (Auto) 0.0x10^3/uL (0.0-0.2) Sodium Level 135mmol/L (136-145) Potassium Level 4.0mmol/L (3.5-5.1) Chloride Level 100mmol/L (98-107) Carbon Dioxide Level 26mmol/L (21-32) Anion Gap 9 (6-14) Blood Urea Nitrogen 13mg/dL (8-26) Creatinine 0.8mg/dL (0.7-1.3) Estimated GFR (Cockcroft-Gault) 124.5 BUN/Creatinine Ratio 16 (6-20) Glucose Level 120mg/dL (70-99) Calcium Level 8.4mg/dL (8.5-10.1) Total Bilirubin 0.6mg/dL (0.2-1.0) Aspartate Amino Transf (AST/SGOT) 30U/L (15-37) Alanine Aminotransferase (ALT/SGPT) 20U/L (16-63) Alkaline Phosphatase 66U/L (46-116) Total Protein 6.7g/dL (6.4-8.2) Albumin 2.2g/dL (3.4-5.0) Albumin/Globulin Ratio 0.5 (1.0-1.7) Laboratory Tests Test 09/03/16 04:20 White Blood Count 13.8x10^3/uL (4.0-11.0) Red Blood Count 4.31x10^6/uL (4.30-5.70) Hemoglobin 12.7g/dL (13.0-17.5) Hematocrit 38.4% (39.0-53.0) Mean Corpuscular Volume 89fL (79-100) Mean Corpuscular Hemoglobin 30pg (25-35) Mean Corpuscular Hemoglobin Concent 33g/dL (31-37) Red Cell Distribution Width 12.7% (11.5-14.5) Platelet Count 279x10^3/uL (140-400) Neutrophils (%) (Auto) 85% (31-73) Lymphocytes (%) (Auto) 11% (24-48) Monocytes (%) (Auto) 4% (0-9) Eosinophils (%) (Auto) 0% (0-3) Basophils (%) (Auto) 0% (0-3) Neutrophils # (Auto) 11.7x10^3uL (1.8-7.7) Lymphocytes # (Auto) 1.4x10^3/uL (1.0-4.8) Monocytes # (Auto) 0.6x10^3/uL (0.0-1.1) Eosinophils # (Auto) 0.0x10^3/uL (0.0-0.7) Basophils # (Auto) 0.0x10^3/uL (0.0-0.2) Sodium Level 135mmol/L (136-145) Potassium Level 4.0mmol/L (3.5-5.1) Chloride Level 100mmol/L (98-107) Carbon Dioxide Level 26mmol/L (21-32) Anion Gap 9 (6-14) Blood Urea Nitrogen 13mg/dL (8-26) Creatinine 0.8mg/dL (0.7-1.3) Estimated GFR (Cockcroft-Gault) 124.5 BUN/Creatinine Ratio 16 (6-20) Glucose Level 120mg/dL (70-99) Calcium Level 8.4mg/dL (8.5-10.1) Total Bilirubin 0.6mg/dL (0.2-1.0) Aspartate Amino Transf (AST/SGOT) 30U/L (15-37) Alanine Aminotransferase (ALT/SGPT) 20U/L (16-63) Alkaline Phosphatase 66U/L (46-116) Total Protein 6.7g/dL (6.4-8.2) Albumin 2.2g/dL (3.4-5.0) Albumin/Globulin Ratio 0.5 (1.0-1.7) Problem List Problems Medical Problems: (1) Abdominal pain Status: Acute (2) Pneumoperitoneum Status: Acute Assessment/Plan CT with abscess and distended stomach will place NGT and ask IR to drain abscess if not improved pending this, may need to consider surgery CT more c/w perforated diverticulitis Problems: ELIZABETH WILSON MD Sep 03, 2016 11:51
[2016-09-03] MEDS: LORAZEPAM 2 MG/ML VIAL IV PRN ×2 (12:49→17:57)
[2016-09-03 15:00] VITALS: BP 127/89
--- NOTE | 2016-09-03 15:21 | PDOC ---
PROGRESS NOTES Chief Complaint Chief Complaint Acute abd pain colitis, microperf, possible crohns, abd abcess sepsis malnuitrition, not POA on MARKING STITCHER for abdomnial pain cont NPO History of Present Illness History of Present Illness prior pain 4/10 w/ MARKING STITCHER, he looks more calm no stool dry mouth, hungry NG tube placed today after gen surg eval I ordered PICC, TPN needed, gut not healing, new abcess, malnutrition cont Abx, abxiety better Vitals Vitals Vital Signs Date Time Temp Pulse Resp B/P Pulse Ox O2 Delivery O2 Flow Rate FiO2 09/03/16 15:00 97.9 113 20 127/89 95 Room Air 97.9 09/02/16 20:15 2.0 Physical Exam General: Alert, Oriented X3, Cooperative, mild distress Heart: Regular rate, No murmurs Lungs: Clear Abdomen: Soft, Other (distended, mild diffuse TTP) Extremities: No clubbing, No cyanosis, No edema, Normal pulses Skin: No rashes, No breakdown Labs LABS Laboratory Tests Test 09/03/16 04:20 White Blood Count 13.8x10^3/uL (4.0-11.0) Red Blood Count 4.31x10^6/uL (4.30-5.70) Hemoglobin 12.7g/dL (13.0-17.5) Hematocrit 38.4% (39.0-53.0) Mean Corpuscular Volume 89fL (79-100) Mean Corpuscular Hemoglobin 30pg (25-35) Mean Corpuscular Hemoglobin Concent 33g/dL (31-37) Red Cell Distribution Width 12.7% (11.5-14.5) Platelet Count 279x10^3/uL (140-400) Neutrophils (%) (Auto) 85% (31-73) Lymphocytes (%) (Auto) 11% (24-48) Monocytes (%) (Auto) 4% (0-9) Eosinophils (%) (Auto) 0% (0-3) Basophils (%) (Auto) 0% (0-3) Neutrophils # (Auto) 11.7x10^3uL (1.8-7.7) Lymphocytes # (Auto) 1.4x10^3/uL (1.0-4.8) Monocytes # (Auto) 0.6x10^3/uL (0.0-1.1) Eosinophils # (Auto) 0.0x10^3/uL (0.0-0.7) Basophils # (Auto) 0.0x10^3/uL (0.0-0.2) Sodium Level 135mmol/L (136-145) Potassium Level 4.0mmol/L (3.5-5.1) Chloride Level 100mmol/L (98-107) Carbon Dioxide Level 26mmol/L (21-32) Anion Gap 9 (6-14) Blood Urea Nitrogen 13mg/dL (8-26) Creatinine 0.8mg/dL (0.7-1.3) Estimated GFR (Cockcroft-Gault) 124.5 BUN/Creatinine Ratio 16 (6-20) Glucose Level 120mg/dL (70-99) Calcium Level 8.4mg/dL (8.5-10.1) Total Bilirubin 0.6mg/dL (0.2-1.0) Aspartate Amino Transf (AST/SGOT) 30U/L (15-37) Alanine Aminotransferase (ALT/SGPT) 20U/L (16-63) Alkaline Phosphatase 66U/L (46-116) Total Protein 6.7g/dL (6.4-8.2) Albumin 2.2g/dL (3.4-5.0) Albumin/Globulin Ratio 0.5 (1.0-1.7) Review of Systems Review of Systems lethargy, weakness, abd pain discomfort from NG tube Assessment and Plan Assessmemt and Plan Problems Medical Problems: (1) Abdominal pain Status: Acute (2) Pneumoperitoneum Status: Acute Problems: Comment Review of Relevant I have reviewed the following items crystal (where applicable) has been applied. Labs Laboratory Tests Test 09/03/16 04:20 White Blood Count 13.8x10^3/uL (4.0-11.0) Red Blood Count 4.31x10^6/uL (4.30-5.70) Hemoglobin 12.7g/dL (13.0-17.5) Hematocrit 38.4% (39.0-53.0) Mean Corpuscular Volume 89fL (79-100) Mean Corpuscular Hemoglobin 30pg (25-35) Mean Corpuscular Hemoglobin Concent 33g/dL (31-37) Red Cell Distribution Width 12.7% (11.5-14.5) Platelet Count 279x10^3/uL (140-400) Neutrophils (%) (Auto) 85% (31-73) Lymphocytes (%) (Auto) 11% (24-48) Monocytes (%) (Auto) 4% (0-9) Eosinophils (%) (Auto) 0% (0-3) Basophils (%) (Auto) 0% (0-3) Neutrophils # (Auto) 11.7x10^3uL (1.8-7.7) Lymphocytes # (Auto) 1.4x10^3/uL (1.0-4.8) Monocytes # (Auto) 0.6x10^3/uL (0.0-1.1) Eosinophils # (Auto) 0.0x10^3/uL (0.0-0.7) Basophils # (Auto) 0.0x10^3/uL (0.0-0.2) Sodium Level 135mmol/L (136-145) Potassium Level 4.0mmol/L (3.5-5.1) Chloride Level 100mmol/L (98-107) Carbon Dioxide Level 26mmol/L (21-32) Anion Gap 9 (6-14) Blood Urea Nitrogen 13mg/dL (8-26) Creatinine 0.8mg/dL (0.7-1.3) Estimated GFR (Cockcroft-Gault) 124.5 BUN/Creatinine Ratio 16 (6-20) Glucose Level 120mg/dL (70-99) Calcium Level 8.4mg/dL (8.5-10.1) Total Bilirubin 0.6mg/dL (0.2-1.0) Aspartate Amino Transf (AST/SGOT) 30U/L (15-37) Alanine Aminotransferase (ALT/SGPT) 20U/L (16-63) Alkaline Phosphatase 66U/L (46-116) Total Protein 6.7g/dL (6.4-8.2) Albumin 2.2g/dL (3.4-5.0) Albumin/Globulin Ratio 0.5 (1.0-1.7) Laboratory Tests Test 09/03/16 04:20 White Blood Count 13.8x10^3/uL (4.0-11.0) Red Blood Count 4.31x10^6/uL (4.30-5.70) Hemoglobin 12.7g/dL (13.0-17.5) Hematocrit 38.4% (39.0-53.0) Mean Corpuscular Volume 89fL (79-100) Mean Corpuscular Hemoglobin 30pg (25-35) Mean Corpuscular Hemoglobin Concent 33g/dL (31-37) Red Cell Distribution Width 12.7% (11.5-14.5) Platelet Count 279x10^3/uL (140-400) Neutrophils (%) (Auto) 85% (31-73) Lymphocytes (%) (Auto) 11% (24-48) Monocytes (%) (Auto) 4% (0-9) Eosinophils (%) (Auto) 0% (0-3) Basophils (%) (Auto) 0% (0-3) Neutrophils # (Auto) 11.7x10^3uL (1.8-7.7) Lymphocytes # (Auto) 1.4x10^3/uL (1.0-4.8) Monocytes # (Auto) 0.6x10^3/uL (0.0-1.1) Eosinophils # (Auto) 0.0x10^3/uL (0.0-0.7) Basophils # (Auto) 0.0x10^3/uL (0.0-0.2) Sodium Level 135mmol/L (136-145) Potassium Level 4.0mmol/L (3.5-5.1) Chloride Level 100mmol/L (98-107) Carbon Dioxide Level 26mmol/L (21-32) Anion Gap 9 (6-14) Blood Urea Nitrogen 13mg/dL (8-26) Creatinine 0.8mg/dL (0.7-1.3) Estimated GFR (Cockcroft-Gault) 124.5 BUN/Creatinine Ratio 16 (6-20) Glucose Level 120mg/dL (70-99) Calcium Level 8.4mg/dL (8.5-10.1) Total Bilirubin 0.6mg/dL (0.2-1.0) Aspartate Amino Transf (AST/SGOT) 30U/L (15-37) Alanine Aminotransferase (ALT/SGPT) 20U/L (16-63) Alkaline Phosphatase 66U/L (46-116) Total Protein 6.7g/dL (6.4-8.2) Albumin 2.2g/dL (3.4-5.0) Albumin/Globulin Ratio 0.5 (1.0-1.7) Microbiology 08/30/16 Blood Culture - Preliminary, Resulted NO GROWTH AFTER 3 DAYS 08/30/16 Urine Culture - Final, Complete 08/30/16 Urine Culture Result 1 (TOAN) - Final, Complete Medications Current Medications Sodium Chloride (Iv Sodium Chloride 0.9% 1000ml Bag) 1,000 ml @ 1,000 mls/hr Q1H IV Last administered on 08/30/16 19:58; Start 08/30/16 at 19:45; Stop 07/06 at 20:44; Status DC Morphine Sulfate 4 mg 1X ONCE IV Last administered on 08/30/16 19:58; Start 08/30/16 at 19:45; Stop 08/30/16 at 19:46; Status DC Ondansetron HCl (Zofran) 4 mg 1X ONCE IV Last administered on 08/30/16 19:57 ; Start 08/30/16 at 19:45; Stop 08/30/16 at 19:46; Status DC Iohexol (Omnipaque 300 Mg/ml) 75 ml 1X ONCE IV Last administered on 08/30/16 20:57; Start 08/30/16 at 20:00; Stop 08/30/16 at 20:01; Status DC Morphine Sulfate 4 mg 1X ONCE IV Last administered on 08/30/16 22:22; Start 08/30/16 at 21:45; Stop 08/30/16 at 21:46; Status DC Piperacillin Sod/ Tazobactam Sod 1 each 1 each PRN DAILY PRN MC SEE COMMENTS; Start 08/30/16 at 21:45; Stop 09/02/16 at 13:43; Status DC Piperacillin Sod/ Tazobactam Sod/ Sodium Chloride (Zosyn/Iv Sodium Chloride 0.9 % 50ml) 50 ml @ 100 mls/hr Q6HRS IV Last administered on 09/03/16 11:43; Start 08/30/16 at 22:00 Ondansetron HCl (Zofran) 4 mg PRN Q8HRS PRN IV NAUSEA/VOMITING; Start 08/30/16 at 22:30; Stop 08/31/16 at 22:29; Status DC Morphine Sulfate 4 mg 4 mg PRN Q2HR PRN IV PAIN Last administered on 08/30/16 23:16; Start 08/30/16 at 22:30; Stop 08/31/16 at 22:29; Status DC Sodium Chloride (Iv Sodium Chloride 0.9% 1000ml Bag) 1,000 ml @ 125 mls/hr Q8H IV Last administered on 08/31/16 09:13; Start 08/30/16 at 22:30; Stop at 13:05; Status DC Acetaminophen 650 mg 650 mg PRN Q4HRS PRN PO FEVER Last administered on 23:15; Start 08/30/16 at 22:30; Stop 08/31/16 at 22:29; Status DC Hydromorphone HCl 30 ml @ 0 mls/hr CONT PRN PRN IV PROTOCOL Last administered on 09/02/16 15:28; Start 08/30/16 at 23:30 Potassium Chloride/Dextrose/ Sod Cl 1,000 ml @ 100 mls/hr Q10H IV Last administered on 09/01/16 03:52; Start 08/31/16 at 13:15; Stop 09/01/16 at 14:37 ; Status DC Sodium Chloride 1,000 ml @ 1,000 mls/hr 1X ONCE IV Last administered on 14:24; Start 08/31/16 at 13:15; Stop 08/31/16 at 14:14; Status DC Albumin Human (Plasmanate) 500 ml @ 125 mls/hr 1X ONCE IV Last administered on 08/31/16 17:21; Start 08/31/16 at 17:00; Stop 08/31/16 at 20:59; Status DC Ondansetron HCl 4 mg 4 mg PRN Q6HRS PRN IV NAUSEA/VOMITING; Start 08/31/16 at 22:45 Amino Acids/ Glycerin/ Electrolytes (Procalamine) 1,000 ml @ 100 mls/hr Q10H IV Last administered on 09/03/16 01:55; Start 09/01/16 at 14:45 Acetaminophen (Tylenol) 650 mg PRN Q4HRS PRN [place] MILD PAIN / TEMP Last administered on 09/01/16 22:05; Start 09/01/16 at 20:30 Lorazepam (Ativan) 1 mg PRN Q4HRS PRN IV ANXIETY / AGITATION Last administered on 09/03/16 12:49; Start 09/02/16 at 10:30 Saliva Substitute (Biotene Moisturizing Mouth) 2 spray PRN Q15MIN PRN PO DRY MOUTH Last administered on 09/02/16 18:13; Start 09/02/16 at 10:30 Iohexol (Omnipaque 240 Mg/ml) 30 ml 1X ONCE PO Last administered on 09/03/16 10:18; Start 09/03/16 at 09:00; Stop 09/03/16 at 09:01; Status DC Iohexol (Omnipaque 300 Mg/ml) 75 ml 1X ONCE IV Last administered on 09/03/16 10:18; Start 09/03/16 at 09:00; Stop 09/03/16 at 09:01; Status DC Info (Do NOT chart on this entry -- for MONITORING) 1 each PRN DAILY PRN MC SEE COMMENTS; Start 09/03/16 at 08:45; Stop 09/05/16 at 08:44 Info 1 each PRN DAILY PRN MC SEE COMMENTS; Start 09/04/16 at 15:00 Vitals/I & O Vital Sign - Last 24 Hours 09/02/16 09/02/16 09/02/16 09/02/16 15:28 15:59 20:00 20:15 Temp 99.5 99.5 Pulse 110 Resp 18 18 16 B/P 128/85 Pulse Ox 94 94 94 O2 Delivery Room Air Room Air Room Air Room Air O2 Flow Rate 2.0 2.0 2.0 09/02/16 09/03/16 09/03/16 09/03/16 23:19 03:26 07:00 07:50 Temp 99.7 100.8 99.7 99.7 100.8 99.7 Pulse 120 110 129 Resp 18 20 20 B/P 129/84 126/90 131/88 Pulse Ox 94 93 91 O2 Delivery Room Air Room Air Room Air Room Air 09/03/16 09/03/16 11:00 15:00 Temp 99.1 97.9 99.1 97.9 Pulse 120 113 Resp 20 20 B/P 122/89 127/89 Pulse Ox 94 95 O2 Delivery Room Air Room Air Intake and Output 09/02/16 09/02/16 09/03/16 15:00 23:00 07:00 Intake Total 0 ml 0 ml Balance 0 ml 0 ml CHELY BUSTILLO MD Sep 03, 2016 15:21
[2016-09-03 19:00] VITALS: BP 126/86
[2016-09-03] MEDS: ACETAMINOPHEN 650 MG SUPP.RECT. PR PRN (20:39)
[2016-09-03 23:00] VITALS: BP 126/87
[2016-09-04] VITALS (18 sets, daily range): BP systolic 111–133; BP diastolic 67–81
[2016-09-04] MEDS: PIPERACILLIN/TAZOBACTAM 3.375 GM in IV NORMAL SALINE 50ML 50 ML IV SCH (05:07)
[2016-09-04 05:22] LABS: CALCIUM 8.1 mg/dL (8.5-10.1); CREATININE 0.7 mg/dL (0.7-1.3); GFR 145.3; MAGNESIUM 2.1 mg/dL (1.8-2.4); PHOSPHORUS 3.7 mg/dL (2.6-4.7); POTASSIUM 3.8 mmol/L (3.5-5.1)
[2016-09-04 08:13] LABS: BASO % 0 % (0-3); EOS % 0 % (0-3); HEMATOCRIT 36.2 % (39.0-53.0); HEMOGLOBIN 12.1 g/dL (13.0-17.5); LYMPH # 1.5 x10^3/uL (1.0-4.8); LYMPH % 10 % (24-48); MEAN CORPUSCULAR HEMOGLOBIN 30 pg (25-35); MEAN CORPUSCULAR HGB CONC 33 g/dL (31-37); MEAN CORPUSCULAR VOLUME 89 fL (79-100); MONO % 4 % (0-9); NEUT % 86 % (31-73); PLATELET COUNT 320 x10^3/uL (140-400); RED BLOOD COUNT 4.06 x10^6/uL (4.30-5.70); WHITE BLOOD COUNT 14.6 x10^3/uL (4.0-11.0)
[2016-09-04 08:21] LABS: INR 1.5 (0.8-1.1); PROTHROMBIN TIME PATIENT 16.9 SEC (11.7-14.0)
--- NOTE | 2016-09-04 08:53 | PDOC ---
AASHISH LEYVA [employer] LE[employer]ER 09/04/16 0853: SURGICAL PROGRESS NOTE Subjective pain about the same no emesis Vital Signs Vital Signs Date Time Temp Pulse Resp B/P Pulse Ox O2 Delivery O2 Flow Rate FiO2 09/04/16 07:18 99.7 118 18 118/80 94 Room Air 99.7 I&O Intake and Output 09/04/16 07:00 Intake Total 1310 ml Output Total 600 ml Balance 710 ml Intake Oral 60 ml IV Total 1250 ml Gastric Drainage Total 600 ml # Voids 3 # Bowel Movements 1 PATIENT HAS A BAKER: No General: Cooperative, No acute distress, Other (acutely ill) Abdomen: Soft, Other (mild diffuse tenderness) Labs Laboratory Tests Test 09/03/16 04:20 09/04/16 04:30 09/04/16 08:05 White Blood Count 13.8x10^3/uL (4.0-11.0) 14.6x10^3/uL (4.0-11.0) Red Blood Count 4.31x10^6/uL (4.30-5.70) 4.06x10^6/uL (4.30-5.70) Hemoglobin 12.7g/dL (13.0-17.5) 12.1g/dL (13.0-17.5) Hematocrit 38.4% (39.0-53.0) 36.2% (39.0-53.0) Mean Corpuscular Volume 89fL (79-100) 89fL (79-100) Mean Corpuscular Hemoglobin 30pg (25-35) 30pg (25-35) Mean Corpuscular Hemoglobin Concent 33g/dL (31-37) 33g/dL (31-37) Red Cell Distribution Width 12.7% (11.5-14.5) 13.0% (11.5-14.5) Platelet Count 279x10^3/uL (140-400) 320x10^3/uL (140-400) Neutrophils (%) (Auto) 85% (31-73) 86% (31-73) Lymphocytes (%) (Auto) 11% (24-48) 10% (24-48) Monocytes (%) (Auto) 4% (0-9) 4% (0-9) Eosinophils (%) (Auto) 0% (0-3) 0% (0-3) Basophils (%) (Auto) 0% (0-3) 0% (0-3) Neutrophils # (Auto) 11.7x10^3uL (1.8-7.7) 12.5x10^3uL (1.8-7.7) Lymphocytes # (Auto) 1.4x10^3/uL (1.0-4.8) 1.5x10^3/uL (1.0-4.8) Monocytes # (Auto) 0.6x10^3/uL (0.0-1.1) 0.5x10^3/uL (0.0-1.1) Eosinophils # (Auto) 0.0x10^3/uL (0.0-0.7) 0.0x10^3/uL (0.0-0.7) Basophils # (Auto) 0.0x10^3/uL (0.0-0.2) 0.0x10^3/uL (0.0-0.2) Sodium Level 135mmol/L (136-145) 137mmol/L (136-145) Potassium Level 4.0mmol/L (3.5-5.1) 3.8mmol/L (3.5-5.1) Chloride Level 100mmol/L (98-107) 100mmol/L (98-107) Carbon Dioxide Level 26mmol/L (21-32) 29mmol/L (21-32) Anion Gap 9 (6-14) 8 (6-14) Blood Urea Nitrogen 13mg/dL (8-26) 13mg/dL (8-26) Creatinine 0.8mg/dL (0.7-1.3) 0.7mg/dL (0.7-1.3) Estimated GFR (Cockcroft-Gault) 124.5 145.3 BUN/Creatinine Ratio 16 (6-20) Glucose Level 120mg/dL (70-99) 111mg/dL (70-99) Calcium Level 8.4mg/dL (8.5-10.1) 8.1mg/dL (8.5-10.1) Total Bilirubin 0.6mg/dL (0.2-1.0) Aspartate Amino Transf (AST/SGOT) 30U/L (15-37) Alanine Aminotransferase (ALT/SGPT) 20U/L (16-63) Alkaline Phosphatase 66U/L (46-116) Total Protein 6.7g/dL (6.4-8.2) Albumin 2.2g/dL (3.4-5.0) Albumin/Globulin Ratio 0.5 (1.0-1.7) Phosphorus Level 3.7mg/dL (2.6-4.7) Magnesium Level 2.1mg/dL (1.8-2.4) Prothrombin Time 16.9SEC (11.7-14.0) Prothromb Time International Ratio 1.5 (0.8-1.1) Laboratory Tests Test 09/04/16 04:30 09/04/16 08:05 Sodium Level 137mmol/L (136-145) Potassium Level 3.8mmol/L (3.5-5.1) Chloride Level 100mmol/L (98-107) Carbon Dioxide Level 29mmol/L (21-32) Anion Gap 8 (6-14) Blood Urea Nitrogen 13mg/dL (8-26) Creatinine 0.7mg/dL (0.7-1.3) Estimated GFR (Cockcroft-Gault) 145.3 Glucose Level 111mg/dL (70-99) Calcium Level 8.1mg/dL (8.5-10.1) Phosphorus Level 3.7mg/dL (2.6-4.7) Magnesium Level 2.1mg/dL (1.8-2.4) White Blood Count 14.6x10^3/uL (4.0-11.0) Red Blood Count 4.06x10^6/uL (4.30-5.70) Hemoglobin 12.1g/dL (13.0-17.5) Hematocrit 36.2% (39.0-53.0) Mean Corpuscular Volume 89fL (79-100) Mean Corpuscular Hemoglobin 30pg (25-35) Mean Corpuscular Hemoglobin Concent 33g/dL (31-37) Red Cell Distribution Width 13.0% (11.5-14.5) Platelet Count 320x10^3/uL (140-400) Neutrophils (%) (Auto) 86% (31-73) Lymphocytes (%) (Auto) 10% (24-48) Monocytes (%) (Auto) 4% (0-9) Eosinophils (%) (Auto) 0% (0-3) Basophils (%) (Auto) 0% (0-3) Neutrophils # (Auto) 12.5x10^3uL (1.8-7.7) Lymphocytes # (Auto) 1.5x10^3/uL (1.0-4.8) Monocytes # (Auto) 0.5x10^3/uL (0.0-1.1) Eosinophils # (Auto) 0.0x10^3/uL (0.0-0.7) Basophils # (Auto) 0.0x10^3/uL (0.0-0.2) Prothrombin Time 16.9SEC (11.7-14.0) Prothromb Time International Ratio 1.5 (0.8-1.1) Problem List Problems Medical Problems: (1) Abdominal pain Status: Acute (2) Pneumoperitoneum Status: Acute Assessment/Plan Tmax 101.2, tachy, WBC 14.6 plans for IR consult, drainage of abscess will consult ID Problems: RODRIGUE LÓPEZ MD 09/04/16 1039: SURGICAL PROGRESS NOTE Assessment/Plan pt seen and examined talked with him and his parents about plan for drainage questions answered. reviewed yesterdays CT scan with IR. Problems: AASHISH LEYVA APRN Sep 04, 2016 08:53 RODRIGUE LÓPEZ MD Sep 04, 2016 10:39
[2016-09-04] MEDS ORDERED: MIDAZOLAM HCL/PF 5 MG/5 ML VIAL ONE (09:54)
[2016-09-04] MEDS ORDERED: FENTANYL PF 250 MCG/5 ML VIAL. ONE (09:54)
[2016-09-04] MEDS ORDERED: LIDOCAINE 1% / SOD BICARB 8.4% 20 ML VIAL. IJ ONE ×2 (09:55→10:45)
--- NOTE | 2016-09-04 10:23 | PDOC ---
Objective: Objective: Out for procedure. Reviewed notes, CTs. Vital Signs: Vital Signs Date Time Temp Pulse Resp B/P Pulse Ox O2 Delivery O2 Flow Rate FiO2 09/04/16 10:10 110 30 94 Nasal Cannula 2.0 09/04/16 07:18 99.7 118/80 99.7 Labs: Laboratory Tests Test 09/04/16 04:30 09/04/16 08:05 Sodium Level 137mmol/L Potassium Level 3.8mmol/L Chloride Level 100mmol/L Carbon Dioxide Level 29mmol/L Anion Gap 8 Blood Urea Nitrogen 13mg/dL Creatinine 0.7mg/dL Estimated GFR (Cockcroft-Gault) 145.3 Glucose Level 111mg/dL Calcium Level 8.1mg/dL Phosphorus Level 3.7mg/dL Magnesium Level 2.1mg/dL White Blood Count 14.6x10^3/uL Red Blood Count 4.06x10^6/uL Hemoglobin 12.1g/dL Hematocrit 36.2% Mean Corpuscular Volume 89fL Mean Corpuscular Hemoglobin 30pg Mean Corpuscular Hemoglobin Concent 33g/dL Red Cell Distribution Width 13.0% Platelet Count 320x10^3/uL Neutrophils (%) (Auto) 86% Lymphocytes (%) (Auto) 10% Monocytes (%) (Auto) 4% Eosinophils (%) (Auto) 0% Basophils (%) (Auto) 0% Neutrophils # (Auto) 12.5x10^3uL Lymphocytes # (Auto) 1.5x10^3/uL Monocytes # (Auto) 0.5x10^3/uL Eosinophils # (Auto) 0.0x10^3/uL Basophils # (Auto) 0.0x10^3/uL Prothrombin Time 16.9SEC Prothromb Time International Ratio 1.5 Imaging: CT A/P w/ IV contrast 08/29/16 IMPRESSION Multiple abnormal loops of small bowel and sigmoid colon with wall thickening and mucosal hyper enhancement. Small amount of pneumoperitoneum adjacent to the abnormal loop of the sigmoid colon and surrounding the liver with small amount of free fluid in the right lower quadrant and pelvis. The primary diagnostic consideration would include inflammatory bowel disease such as Crohn disease. Appendix not clearly seen. CT A/P w/ oral and IV contrast 09/03/16 Impression: 1. Interval development of at least 2 abscesses involving the abdomen and pelvis. The larger involves the right aspect of the lower abdomen and upper/mid pelvis. The smaller involves the pouch of Alberto and may communicate with the lumen of the sigmoid colon. Consequently, the perforation of the sigmoid colon that could be due to diverticulitis versus inflammatory bowel disease. 2. Question additional root mesentery abscess versus unopacified small bowel. 3. There is evidence of dilated proximal small bowel loops of bowel. This could indicate ileus versus partial small bowel obstruction. 4. There appear to be several loops of small bowel, probably distal jejunum and proximal ileum which demonstrate wall thickening compatible with inflammatory change. PE: no exam A/P: Abdominal pain w/ pneumoperitoneum -interval CT w/ abscesses -on IV antibiotics -surgery following, also IR for drainage Leukocytosis, fever, tachycardia -- Out for IR procedure. Will follow. UMM RIVAS Sep 04, 2016 10:23 PETER ARAGON MD Sep 04, 2016 10:27
--- NOTE | 2016-09-04 10:35 | PDOC ---
Infectious Disease Note ROS ROS GEN: Denies fevers, chills, sweats HEENT: Denies blurred vision, sore throat CV: Denies chest pain RESP: Denies shortness of air, cough GI: Denies n/v/d NEURO: Denies confusion, dizziness MSK: Denies weakness, joint pain/swelling Vital Sign Vital Signs Vital Signs Date Time Temp Pulse Resp B/P Pulse Ox O2 Delivery O2 Flow Rate FiO2 09/04/16 10:10 110 30 94 Nasal Cannula 2.0 09/04/16 07:18 99.7 118/80 99.7 Physical Exam PHYSICAL EXAM GENERAL: NAD, Alert HEENT: PERRL, OC/OP NECK: Supple, no JVD, no LN LUNGS: Clear HEART: S1S2, no gallop, no murmur ABD: Soft, NT, no organomegaly, no rebound EXT: No edema, no cyanosis RESEARCH ASSOCIATE: Alert, oriented x 3, no focal neurologic deficit SKIN: No rash IV: ok Labs Lab Laboratory Tests Test 09/04/16 04:30 09/04/16 08:05 Sodium Level 137mmol/L (136-145) Potassium Level 3.8mmol/L (3.5-5.1) Chloride Level 100mmol/L (98-107) Carbon Dioxide Level 29mmol/L (21-32) Anion Gap 8 (6-14) Blood Urea Nitrogen 13mg/dL (8-26) Creatinine 0.7mg/dL (0.7-1.3) Estimated GFR (Cockcroft-Gault) 145.3 Glucose Level 111mg/dL (70-99) Calcium Level 8.1mg/dL (8.5-10.1) Phosphorus Level 3.7mg/dL (2.6-4.7) Magnesium Level 2.1mg/dL (1.8-2.4) White Blood Count 14.6x10^3/uL (4.0-11.0) Red Blood Count 4.06x10^6/uL (4.30-5.70) Hemoglobin 12.1g/dL (13.0-17.5) Hematocrit 36.2% (39.0-53.0) Mean Corpuscular Volume 89fL (79-100) Mean Corpuscular Hemoglobin 30pg (25-35) Mean Corpuscular Hemoglobin Concent 33g/dL (31-37) Red Cell Distribution Width 13.0% (11.5-14.5) Platelet Count 320x10^3/uL (140-400) Neutrophils (%) (Auto) 86% (31-73) Lymphocytes (%) (Auto) 10% (24-48) Monocytes (%) (Auto) 4% (0-9) Eosinophils (%) (Auto) 0% (0-3) Basophils (%) (Auto) 0% (0-3) Neutrophils # (Auto) 12.5x10^3uL (1.8-7.7) Lymphocytes # (Auto) 1.5x10^3/uL (1.0-4.8) Monocytes # (Auto) 0.5x10^3/uL (0.0-1.1) Eosinophils # (Auto) 0.0x10^3/uL (0.0-0.7) Basophils # (Auto) 0.0x10^3/uL (0.0-0.2) Prothrombin Time 16.9SEC (11.7-14.0) Prothromb Time International Ratio 1.5 (0.8-1.1) Objective Assessment Diverticulitis Perf viscous -on Zosyn Abd abscess Leukocytosis Plan Plan of Care Change to Meropenem/Fluconazole F/u labs and cults D/w parents D/w Dr. Johnson # [id number] MIRIAM ORTEZ MD Sep 04, 2016 10:35
[2016-09-04] MEDS ORDERED: FENTANYL PF 250 MCG/5 ML VIAL. IV ONE (10:45)
[2016-09-04] MEDS ORDERED: MIDAZOLAM HCL/PF 5 MG/5 ML VIAL IV ONE (10:45)
--- NOTE | 2016-09-04 11:06 | PDOC ---
MODERATE SEDATION ASSESSMENT RISKS/ALTERNATIVES Risks/Alternatives Risks and alternatives of this type of sedation and procedure discussed with: RISK/ALTERNATIVES: Patient H & P ON CHART H & P H & P on chart and reviewed for co-morbid conditions and appropriate labs. H&P ON CHART: Yes STATUS PREG STATUS ASSESSED: Yes MEDS/ALLERGIES REVIEWED Meds/Allergies Reviewed Medications and Allergies including time and route of recently administered narcotics and sedatives. MEDS/ALLERGIES REVIEWED: Yes ASA RATING ASA RATING: II AIRWAY ASSESSMENT Airway Assessment Airway patency, oral function limitations, presence of caps, crowns, dentures, partials, and ability to extend neck assessed. AIRWAY ASSESSMENT: Yes MALLAMPATI SCORE MALLAMPATI SCORE: II PRE-SEDATION ASSESSMENT PRE-SEDATION ASSESSMENT: Yes NAREN RODRIGUEZ MD Sep 04, 2016 11:06
--- NOTE | 2016-09-04 11:07 | PDOC ---
BRIEF OPERATIVE NOTE Pre-Op Diagnosis Abdominal abcesses Post-Op Diagnosis same Procedure Performed CT abdominal drains x 2 Surgeon Alex Anesthesia Type: Conscious Sedation Specimens Obtained 10cc tyrese pus from RLQ abcess Findings 2 x 10f drains Complications No immediate NAREN RODRIGUEZ MD Sep 04, 2016 11:07
[2016-09-04] MEDS: FLUCONAZOLE 400MG/200ML PREMIX 200 ML IV SCH (11:45)
--- NOTE | 2016-09-04 13:36 | RAD ---
Procedure: CT-guided abdominal drain placement x2 Clinical Indication: Adult male with multiple abdominal abscesses. Sedation: Conscious sedation was administered for 22 minutes. The patient was monitored by a qualified independent observer throughout the time of sedation. Please refer to the medical record for exact doses of medications utilized to achieve moderate sedation. Antibiotics: None Contrast: None Sterility: The procedure was performed in its entirety using appropriate elements of sterile technique. Consent: The procedure was explained in its entirety to the patient or the patients designated customer relations representative by a member of the treatment team, including a discussion of the risks, benefits and commonly accepted alternatives to the procedure, as well as the expected consequences of no therapy whatsoever. Discussion of the risks included, but was not limited to, those that are most frequent and those that are rare but possibly severe or life-threatening, as well as the possibility of unforeseen complications. Technique and Findings: Following informed consent, the patient was prepped and draped in usual sterile fashion. Preliminary CT scan of the area of interest was performed. 1% lidocaine was used to achieve local anesthesia over 2 separate regions of the abdomen. A small dermatotomy was made in the right lower quadrant, an 18-gauge Seldinger needle was advanced into the largest fluid collection. Tyrese pus was aspirated. The needle was then exchanged over wire for 10 Prydeinig pigtail drainage catheter which was positioned under periodic CT surveillance within the abscess cavity. Simultaneously, a 17-gauge needle was advanced through a dermatotomy in the left lower quadrant into a deep abscess within the left lower quadrant of the abdomen. Once again tyrese pus was aspirated. This needle was exchanged over wire for a 10 Prydeinig pigtail drainage catheter which was also positioned within the abscess cavity under periodic CT surveillance. Both catheters were then sutured to the skin and placed to bulb suction. Complications: No immediate Impression: 1. CT-guided placement of a 10 Prydeinig pigtail drainage catheter within a large right lower quadrant abscess, and a second 10 Prydeinig pigtail drainage catheter within a smaller left lower quadrant abscess. PQRS Compliance Statement: One or more of the following individualized dose reduction techniques were utilized for this examination: 1. Automated exposure control 2. Adjustment of the mA and/or kV according to patient size 3. Use of iterative reconstruction technique
--- NOTE | 2016-09-04 13:51 | PDOC ---
PROGRESS NOTES Chief Complaint Chief Complaint Acute abd pain 2/2 abd abscess perforated bowls, 2/2 inflammatory bowel disease likely abd abcess sepsis malnuitrition, not POA on RESPIRATORY THERAPY AIDE for abdomnial pain cont NPO plan: 1. fu with id, ir, sx, gi 2. IR abscess drainage on 09/04 3. abx changed to meropenum and flagyl as per Angel n 09/04 cont RESPIRATORY THERAPY AIDE for pain control dvt ppx TPN NPO History of Present Illness History of Present Illness prior pain / w/ RESPIRATORY THERAPY AIDE, he looks more calm BM TODAY, STILL fever overnight dry mouth, hungry NG tube placed I ordered PICC, TPN needed, gut not healing, new abcess, malnutrition IR for abscess drain 09/04 Vitals Vitals Vital Signs Date Time Temp Pulse Resp B/P Pulse Ox O2 Delivery O2 Flow Rate FiO2 09/04/16 12:00 99.5 103 18 114/69 97 Nasal Cannula 1.5 99.5 Physical Exam General: Cooperative, No acute distress, Other (acutely ill) Heart: Regular rate, No murmurs Lungs: Clear Abdomen: Soft, Other (mild diffuse tenderness, no BS) Extremities: No clubbing, No cyanosis, No edema, Normal pulses Skin: No rashes, No breakdown Labs LABS Laboratory Tests Test 09/04/16 04:30 09/04/16 08:05 Sodium Level 137mmol/L (136-145) Potassium Level 3.8mmol/L (3.5-5.1) Chloride Level 100mmol/L (98-107) Carbon Dioxide Level 29mmol/L (21-32) Anion Gap 8 (6-14) Blood Urea Nitrogen 13mg/dL (8-26) Creatinine 0.7mg/dL (0.7-1.3) Estimated GFR (Cockcroft-Gault) 145.3 Glucose Level 111mg/dL (70-99) Calcium Level 8.1mg/dL (8.5-10.1) Phosphorus Level 3.7mg/dL (2.6-4.7) Magnesium Level 2.1mg/dL (1.8-2.4) White Blood Count 14.6x10^3/uL (4.0-11.0) Red Blood Count 4.06x10^6/uL (4.30-5.70) Hemoglobin 12.1g/dL (13.0-17.5) Hematocrit 36.2% (39.0-53.0) Mean Corpuscular Volume 89fL (79-100) Mean Corpuscular Hemoglobin 30pg (25-35) Mean Corpuscular Hemoglobin Concent 33g/dL (31-37) Red Cell Distribution Width 13.0% (11.5-14.5) Platelet Count 320x10^3/uL (140-400) Neutrophils (%) (Auto) 86% (31-73) Lymphocytes (%) (Auto) 10% (24-48) Monocytes (%) (Auto) 4% (0-9) Eosinophils (%) (Auto) 0% (0-3) Basophils (%) (Auto) 0% (0-3) Neutrophils # (Auto) 12.5x10^3uL (1.8-7.7) Lymphocytes # (Auto) 1.5x10^3/uL (1.0-4.8) Monocytes # (Auto) 0.5x10^3/uL (0.0-1.1) Eosinophils # (Auto) 0.0x10^3/uL (0.0-0.7) Basophils # (Auto) 0.0x10^3/uL (0.0-0.2) Prothrombin Time 16.9SEC (11.7-14.0) Prothromb Time International Ratio 1.5 (0.8-1.1) Review of Systems Review of Systems no chills, sob, chest pain Assessment and Plan Assessmemt and Plan Problems Medical Problems: (1) Abdominal pain Status: Acute (2) Pneumoperitoneum Status: Acute Problems: Comment Review of Relevant I have reviewed the following items crystal (where applicable) has been applied. Labs Laboratory Tests Test 09/03/16 04:20 09/04/16 04:30 09/04/16 08:05 White Blood Count 13.8x10^3/uL (4.0-11.0) 14.6x10^3/uL (4.0-11.0) Red Blood Count 4.31x10^6/uL (4.30-5.70) 4.06x10^6/uL (4.30-5.70) Hemoglobin 12.7g/dL (13.0-17.5) 12.1g/dL (13.0-17.5) Hematocrit 38.4% (39.0-53.0) 36.2% (39.0-53.0) Mean Corpuscular Volume 89fL (79-100) 89fL (79-100) Mean Corpuscular Hemoglobin 30pg (25-35) 30pg (25-35) Mean Corpuscular Hemoglobin Concent 33g/dL (31-37) 33g/dL (31-37) Red Cell Distribution Width 12.7% (11.5-14.5) 13.0% (11.5-14.5) Platelet Count 279x10^3/uL (140-400) 320x10^3/uL (140-400) Neutrophils (%) (Auto) 85% (31-73) 86% (31-73) Lymphocytes (%) (Auto) 11% (24-48) 10% (24-48) Monocytes (%) (Auto) 4% (0-9) 4% (0-9) Eosinophils (%) (Auto) 0% (0-3) 0% (0-3) Basophils (%) (Auto) 0% (0-3) 0% (0-3) Neutrophils # (Auto) 11.7x10^3uL (1.8-7.7) 12.5x10^3uL (1.8-7.7) Lymphocytes # (Auto) 1.4x10^3/uL (1.0-4.8) 1.5x10^3/uL (1.0-4.8) Monocytes # (Auto) 0.6x10^3/uL (0.0-1.1) 0.5x10^3/uL (0.0-1.1) Eosinophils # (Auto) 0.0x10^3/uL (0.0-0.7) 0.0x10^3/uL (0.0-0.7) Basophils # (Auto) 0.0x10^3/uL (0.0-0.2) 0.0x10^3/uL (0.0-0.2) Sodium Level 135mmol/L (136-145) 137mmol/L (136-145) Potassium Level 4.0mmol/L (3.5-5.1) 3.8mmol/L (3.5-5.1) Chloride Level 100mmol/L (98-107) 100mmol/L (98-107) Carbon Dioxide Level 26mmol/L (21-32) 29mmol/L (21-32) Anion Gap 9 (6-14) 8 (6-14) Blood Urea Nitrogen 13mg/dL (8-26) 13mg/dL (8-26) Creatinine 0.8mg/dL (0.7-1.3) 0.7mg/dL (0.7-1.3) Estimated GFR (Cockcroft-Gault) 124.5 145.3 BUN/Creatinine Ratio 16 (6-20) Glucose Level 120mg/dL (70-99) 111mg/dL (70-99) Calcium Level 8.4mg/dL (8.5-10.1) 8.1mg/dL (8.5-10.1) Total Bilirubin 0.6mg/dL (0.2-1.0) Aspartate Amino Transf (AST/SGOT) 30U/L (15-37) Alanine Aminotransferase (ALT/SGPT) 20U/L (16-63) Alkaline Phosphatase 66U/L (46-116) Total Protein 6.7g/dL (6.4-8.2) Albumin 2.2g/dL (3.4-5.0) Albumin/Globulin Ratio 0.5 (1.0-1.7) Phosphorus Level 3.7mg/dL (2.6-4.7) Magnesium Level 2.1mg/dL (1.8-2.4) Prothrombin Time 16.9SEC (11.7-14.0) Prothromb Time International Ratio 1.5 (0.8-1.1) Laboratory Tests Test 09/04/16 04:30 09/04/16 08:05 Sodium Level 137mmol/L (136-145) Potassium Level 3.8mmol/L (3.5-5.1) Chloride Level 100mmol/L (98-107) Carbon Dioxide Level 29mmol/L (21-32) Anion Gap 8 (6-14) Blood Urea Nitrogen 13mg/dL (8-26) Creatinine 0.7mg/dL (0.7-1.3) Estimated GFR (Cockcroft-Gault) 145.3 Glucose Level 111mg/dL (70-99) Calcium Level 8.1mg/dL (8.5-10.1) Phosphorus Level 3.7mg/dL (2.6-4.7) Magnesium Level 2.1mg/dL (1.8-2.4) White Blood Count 14.6x10^3/uL (4.0-11.0) Red Blood Count 4.06x10^6/uL (4.30-5.70) Hemoglobin 12.1g/dL (13.0-17.5) Hematocrit 36.2% (39.0-53.0) Mean Corpuscular Volume 89fL (79-100) Mean Corpuscular Hemoglobin 30pg (25-35) Mean Corpuscular Hemoglobin Concent 33g/dL (31-37) Red Cell Distribution Width 13.0% (11.5-14.5) Platelet Count 320x10^3/uL (140-400) Neutrophils (%) (Auto) 86% (31-73) Lymphocytes (%) (Auto) 10% (24-48) Monocytes (%) (Auto) 4% (0-9) Eosinophils (%) (Auto) 0% (0-3) Basophils (%) (Auto) 0% (0-3) Neutrophils # (Auto) 12.5x10^3uL (1.8-7.7) Lymphocytes # (Auto) 1.5x10^3/uL (1.0-4.8) Monocytes # (Auto) 0.5x10^3/uL (0.0-1.1) Eosinophils # (Auto) 0.0x10^3/uL (0.0-0.7) Basophils # (Auto) 0.0x10^3/uL (0.0-0.2) Prothrombin Time 16.9SEC (11.7-14.0) Prothromb Time International Ratio 1.5 (0.8-1.1) Microbiology 08/30/16 Blood Culture - Preliminary, Resulted NO GROWTH AFTER 4 DAYS 08/30/16 Urine Culture - Final, Complete 08/30/16 Urine Culture Result 1 (TOAN) - Final, Complete 09/04/16 Gram Stain - Final, Complete Medications Current Medications Sodium Chloride (Iv Sodium Chloride 0.9% 1000ml Bag) 1,000 ml @ 1,000 mls/hr Q1H IV Last administered on 08/30/16 19:58; Start 08/30/16 at 19:45; Stop 07/06 at 20:44; Status DC Morphine Sulfate 4 mg 1X ONCE IV Last administered on 08/30/16 19:58; Start 08/30/16 at 19:45; Stop 08/30/16 at 19:46; Status DC Ondansetron HCl (Zofran) 4 mg 1X ONCE IV Last administered on 08/30/16 19:57 ; Start 08/30/16 at 19:45; Stop 08/30/16 at 19:46; Status DC Iohexol (Omnipaque 300 Mg/ml) 75 ml 1X ONCE IV Last administered on 08/30/16 20:57; Start 08/30/16 at 20:00; Stop 08/30/16 at 20:01; Status DC Morphine Sulfate 4 mg 1X ONCE IV Last administered on 08/30/16 22:22; Start 08/30/16 at 21:45; Stop 08/30/16 at 21:46; Status DC Piperacillin Sod/ Tazobactam Sod 1 each 1 each PRN DAILY PRN MC SEE COMMENTS; Start 08/30/16 at 21:45; Stop 09/02/16 at 13:43; Status DC Piperacillin Sod/ Tazobactam Sod/ Sodium Chloride (Zosyn/Iv Sodium Chloride 0.9 % 50ml) 50 ml @ 100 mls/hr Q6HRS IV Last administered on 09/04/16 05:07; Start 08/30/16 at 22:00; Stop 09/04/16 at 10:30; Status DC Ondansetron HCl (Zofran) 4 mg PRN Q8HRS PRN IV NAUSEA/VOMITING; Start 08/30/16 at 22:30; Stop 08/31/16 at 22:29; Status DC Morphine Sulfate 4 mg 4 mg PRN Q2HR PRN IV PAIN Last administered on 08/30/16 23:16; Start 08/30/16 at 22:30; Stop 08/31/16 at 22:29; Status DC Sodium Chloride (Iv Sodium Chloride 0.9% 1000ml Bag) 1,000 ml @ 125 mls/hr Q8H IV Last administered on 08/31/16 09:13; Start 08/30/16 at 22:30; Stop at 13:05; Status DC Acetaminophen 650 mg 650 mg PRN Q4HRS PRN PO FEVER Last administered on 23:15; Start 08/30/16 at 22:30; Stop 08/31/16 at 22:29; Status DC Hydromorphone HCl 30 ml @ 0 mls/hr CONT PRN PRN IV PROTOCOL Last administered on 09/02/16 15:28; Start 08/30/16 at 23:30 Potassium Chloride/Dextrose/ Sod Cl 1,000 ml @ 100 mls/hr Q10H IV Last administered on 09/01/16 03:52; Start 08/31/16 at 13:15; Stop 09/01/16 at 14:37 ; Status DC Sodium Chloride 1,000 ml @ 1,000 mls/hr 1X ONCE IV Last administered on 14:24; Start 08/31/16 at 13:15; Stop 08/31/16 at 14:14; Status DC Albumin Human (Plasmanate) 500 ml @ 125 mls/hr 1X ONCE IV Last administered on 08/31/16 17:21; Start 08/31/16 at 17:00; Stop 08/31/16 at 20:59; Status DC Ondansetron HCl 4 mg 4 mg PRN Q6HRS PRN IV NAUSEA/VOMITING; Start 08/31/16 at 22:45 Amino Acids/ Glycerin/ Electrolytes (Procalamine) 1,000 ml @ 100 mls/hr Q10H IV Last administered on 09/03/16 23:59; Start 09/01/16 at 14:45 Acetaminophen (Tylenol) 650 mg PRN Q4HRS PRN GA MILD PAIN / TEMP Last administered on 09/03/16 20:39; Start 09/01/16 at 20:30 Lorazepam (Ativan) 1 mg PRN Q4HRS PRN IV ANXIETY / AGITATION Last administered on 09/03/16 17:57; Start 09/02/16 at 10:30 Saliva Substitute (Biotene Moisturizing Mouth) 2 spray PRN Q15MIN PRN PO DRY MOUTH Last administered on 09/02/16 18:13; Start 09/02/16 at 10:30 Iohexol (Omnipaque 240 Mg/ml) 30 ml 1X ONCE PO Last administered on 09/03/16 10:18; Start 09/03/16 at 09:00; Stop 09/03/16 at 09:01; Status DC Iohexol (Omnipaque 300 Mg/ml) 75 ml 1X ONCE IV Last administered on 09/03/16 10:18; Start 09/03/16 at 09:00; Stop 09/03/16 at 09:01; Status DC Info (Do NOT chart on this entry -- for MONITORING) 1 each PRN DAILY PRN MC SEE COMMENTS; Start 09/03/16 at 08:45; Stop 09/05/16 at 08:44 Info 1 each PRN DAILY PRN MC SEE COMMENTS; Start 09/04/16 at 15:00 Midazolam HCl (Versed) 5 mg STK-MED ONCE .ROUTE ; Start 09/04/16 at 09:54; Stop 09/04/16 at 09:55; Status DC Fentanyl Citrate (Fentanyl 5ml Vial) 250 mcg STK-MED ONCE .ROUTE ; Start at 09:54; Stop 09/04/16 at 09:55; Status DC Lidocaine/Sodium Bicarbonate 20 ml 20 ml STK-MED ONCE IJ ; Start 09/04/16 at 09: 55; Stop 09/04/16 at 09:56; Status DC Meropenem 1 gm/ Sodium Chloride 100 ml @ 200 mls/hr Q8HRS IV ; Start 09/04/16 at 14:00 Fluconazole/ Sodium Chloride (Diflucan 400mg/ 200ml Premix) 200 ml @ 100 mls/ hr Q24H IV Last administered on 09/04/16 11:45; Start 09/04/16 at 11:00 Lidocaine/Sodium Bicarbonate (Buffered Lidocaine 1%) 3 ml 1X ONCE IJ Last administered on 09/04/16 10:49; Start 09/04/16 at 10:45; Stop 09/04/16 at 10:48 ; Status DC Midazolam HCl (Versed) 0.5 mg 1X ONCE IV Last administered on 09/04/16 10:50 ; Start 09/04/16 at 10:45; Stop 09/04/16 at 10:48; Status DC Fentanyl Citrate (Fentanyl 5ml Vial) 100 mcg 1X ONCE IV Last administered on t 10:50; Start 09/04/16 at 10:45; Stop 09/04/16 at 10:48; Status DC Vitals/I & O Vital Sign - Last 24 Hours 09/03/16 09/03/16 09/03/16 09/03/16 15:00 19:00 19:57 23:00 Temp 97.9 101.2 98.3 97.9 101.2 98.3 Pulse 113 135 120 Resp 20 20 20 B/P 127/89 126/86 126/87 Pulse Ox 95 94 93 O2 Delivery Room Air Room Air 09/04/16 09/04/16 09/04/16 09/04/16 03:00 07:18 08:00 10:10 Temp 99.3 99.7 99.3 99.7 Pulse 118 118 110 Resp 16 18 30 B/P 128/77 118/80 Pulse Ox 94 94 94 O2 Delivery Room Air Room Air Nasal Cannula O2 Flow Rate 2.0 09/04/16 09/04/16 09/04/16 09/04/16 10:19 10:24 10:29 10:34 Pulse 117 107 112 114 Resp 38 29 27 28 Pulse Ox 96 95 95 96 O2 Delivery Nasal Cannula Nasal Cannula Nasal Cannula Nasal Cannula O2 Flow Rate 2.0 2.0 2.0 2.0 09/04/16 09/04/16 09/04/16 09/04/16 10:39 10:45 10:50 11:00 Temp 100.3 100.3 Pulse 118 113 111 Resp 32 28 29 17 B/P 117/75 Pulse Ox 98 96 96 96 O2 Delivery Nasal Cannula Nasal Cannula Nasal Cannula Nasal Cannula O2 Flow Rate 2.0 2.0 2.0 1.5 09/04/16 09/04/16 09/04/16 09/04/16 11:15 11:30 12:00 12:00 Temp 99.5 99.5 Pulse 111 105 103 Resp 18 18 B/P 118/81 114/70 114/69 Pulse Ox 97 97 O2 Delivery Room Air Nasal Cannula O2 Flow Rate 0.5 1.5 Intake and Output 09/03/16 09/03/16 09/04/16 15:00 23:00 07:00 Intake Total 0 ml 1310 ml Output Total 600 ml Balance -600 ml 1310 ml MARKY CALDWELL MD Sep 04, 2016 13:51
[2016-09-04] MEDS: AA 3%/ELECTROLYTE-TPN SOLN/GLY 1,000 ML IV SCH (14:40)
[2016-09-04] MEDS: MEROPENEM 1 GM in IV NORMAL SALINE 100ML 100 ML IV SCH ×2 (14:40→21:22)
--- NOTE | 2016-09-04 17:26 | RAD ---
PROCEDURE AP chest radiograph. HISTORY PICC line placement. COMPARISON None. FINDINGS Cardiac silhouette appears within normal limits for size. There is suboptimal inspiration. Esophagogastric tube is present with tip projecting at the distal body of the stomach. There is a right-sided PICC line with tip somewhat difficult to visualize, but probably at the atriocaval junction. No pneumothorax or pleural effusion is seen. No focal consolidation is identified. Accentuation of pulmonary vascular markings is thought to be artifact of suboptimal inspiration. IMPRESSION 1. Right-sided PICC line tip is thought to be at the atriocaval junction, in satisfactory location. Electronically signed by: Mike Mckeon MD (Sep 04, 2016 17:25:31)
--- NOTE | 2016-09-04 21:09 | CONS ---
DATE OF CONSULTATION: 09/04/2016 ROOM: 576. REFERRING PHYSICIAN: Dr. Workman. REASON FOR CONSULTATION: Abscess. 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 He developed abdominal pain in the right lower quadrant back in the first week of August, but it became persistently worse on the 29 of August. He presented to [facility] on the , had a white cell count of 5.8. Initially, on a CT scan that was performed showed he had marked abnormal loops of small bowel. There was a small amount of pneumoperitoneum adjacent to the abnormal loop. There was consideration for inflammatory bowel disease such as Crohn's. He was placed on Zosyn. Since the , his white blood cell count has steadily increased and on the , he underwent a repeat CT scan of abdomen and pelvis, which showed interval development of at least two abscesses in the abdomen and pelvis. There was also some inflammation, wall thickening and inflammatory change of the proximal ileum and distal jejunum. He has now been taken down to Interventional Radiology to undergo drainage of the abscess. He has an NG tube in place. PAST MEDICAL HISTORY: Essentially negative. REVIEW OF SYSTEMS: He did have some fevers, some abdominal pain, mild nausea and has some discomfort with the NG tube. No constipation or diarrhea. No dysuria, frequency, urgency. No falls. SOCIAL HISTORY: No tobacco. Again he is a student at [employer] studying computers and also works at [employer]. No pets in the family. ALLERGIES: No known drug allergies. FAMILY HISTORY: Positive for some mild colitis in his father. CURRENT MEDICATIONS: Zosyn, Dilaudid and Ativan ____. PHYSICAL EXAMINATION: VITAL SIGNS: T-max has been 101.2, most recently 99.7, pulse 110, respirations 30, on 2 liters nasal cannula satting 94%, blood pressure 118/80. CONSTITUTIONAL: He is pleasant. He looks comfortable. He is in no acute distress. He is in an open CAT scan area. NG tube in place. Oral cavity, pharynx is clear. Pupils are equal and reactive. LUNGS: Decreased at bases. HEART: S1, S2. ABDOMEN: Mildly distended with decreased bowel sounds. EXTREMITIES: No clubbing, cyanosis or gross edema. SKIN: Without generalized signs of rash. Has mild tinea on his ____, was warm to touch. NEUROLOGIC: He is nonfocal and alert. Affect was somewhat flat. LABORATORY DATA: White count 14.6, hemoglobin 12.1, platelets of 320, neutrophils 86, creatinine 0.7, glucose of 111. Normal liver function study tests. Urinalysis is clean. Radiology reviewed in history of present illness. IMPRESSION: 1. Diverticulitis. 2. Perforated viscus. Currently on Zosyn. 3. Abdominal abscesses. 4. Leukocytosis. RECOMMENDATIONS: For now we will change to meropenem and fluconazole. Follow up on labs and cultures. This was discussed with his parents, also quickly discussed with . ____. Thank you for allowing us to participate in the patient's care. If you have any questions, please do not hesitate to contact me. MIRIAM ORTEZ MD DR: ENRIQUE/rosalba JOB#: [id number] / [id number]
[2016-09-05] MEDS: AA 3%/ELECTROLYTE-TPN SOLN/GLY 1,000 ML IV SCH ×3 (00:17→20:49)
[2016-09-05 03:00] VITALS: BP 121/77
[2016-09-05 04:27] LABS: BASO % 0 % (0-3); EOS % 0 % (0-3); HEMATOCRIT 38.5 % (39.0-53.0); HEMOGLOBIN 12.6 g/dL (13.0-17.5); LYMPH # 1.7 x10^3/uL (1.0-4.8); LYMPH % 10 % (24-48); MEAN CORPUSCULAR HEMOGLOBIN 29 pg (25-35); MEAN CORPUSCULAR HGB CONC 33 g/dL (31-37); MEAN CORPUSCULAR VOLUME 90 fL (79-100); MONO % 5 % (0-9); NEUT % 85 % (31-73); PLATELET COUNT 369 x10^3/uL (140-400); WHITE BLOOD COUNT 17.2 x10^3/uL (4.0-11.0)
[2016-09-05 05:09] LABS: CREATININE 0.6 mg/dL (0.7-1.3); GFR 173.6; MAGNESIUM 2.3 mg/dL (1.8-2.4); PHOSPHORUS 3.7 mg/dL (2.6-4.7); POTASSIUM 4.2 mmol/L (3.5-5.1)
[2016-09-05] MEDS: MEROPENEM 1 GM in IV NORMAL SALINE 100ML 100 ML IV SCH ×3 (05:29→21:13)
[2016-09-05 07:13] VITALS: BP 112/79
[2016-09-05] MEDS: HYDROMORPHONE STANDARD PCA 30 ML IV PRN (09:02)
--- NOTE | 2016-09-05 10:42 | PDOC ---
AASHISH LEYVA BOWLING OR SKATING FRONT DESK CLERK 09/05/16 1042: SURGICAL PROGRESS NOTE Subjective up in chair pain is improved today Vital Signs Vital Signs Date Time Temp Pulse Resp B/P Pulse Ox O2 Delivery O2 Flow Rate FiO2 09/05/16 10:23 Nasal Cannula 0.5 09/05/16 07:13 98.8 95 18 112/79 92 98.8 I&O Intake and Output 09/05/16 07:00 Intake Total 20 ml Output Total 2960 ml Balance -2940 ml Intake Oral 0 ml Other 20 ml Output Urine Total 1200 ml Gastric Drainage Total 300 ml Drainage Total 1460 ml General: Alert, Oriented X3, Cooperative, No acute distress HEENT: Other (ng bilious) Abdomen: Soft, Other (drains cloudy serous, mild tenderness on exam) Labs Laboratory Tests Test 09/04/16 04:30 09/04/16 08:05 09/05/16 03:50 Sodium Level 137mmol/L (136-145) 135mmol/L (136-145) Potassium Level 3.8mmol/L (3.5-5.1) 4.2mmol/L (3.5-5.1) Chloride Level 100mmol/L (98-107) 99mmol/L (98-107) Carbon Dioxide Level 29mmol/L (21-32) 26mmol/L (21-32) Anion Gap 8 (6-14) 10 (6-14) Blood Urea Nitrogen 13mg/dL (8-26) 11mg/dL (8-26) Creatinine 0.7mg/dL (0.7-1.3) 0.6mg/dL (0.7-1.3) Estimated GFR (Cockcroft-Gault) 145.3 173.6 Glucose Level 111mg/dL (70-99) 113mg/dL (70-99) Calcium Level 8.1mg/dL (8.5-10.1) 8.0mg/dL (8.5-10.1) Phosphorus Level 3.7mg/dL (2.6-4.7) 3.7mg/dL (2.6-4.7) Magnesium Level 2.1mg/dL (1.8-2.4) 2.3mg/dL (1.8-2.4) White Blood Count 14.6x10^3/uL (4.0-11.0) 17.2x10^3/uL (4.0-11.0) Red Blood Count 4.06x10^6/uL (4.30-5.70) 4.30x10^6/uL (4.30-5.70) Hemoglobin 12.1g/dL (13.0-17.5) 12.6g/dL (13.0-17.5) Hematocrit 36.2% (39.0-53.0) 38.5% (39.0-53.0) Mean Corpuscular Volume 89fL (79-100) 90fL (79-100) Mean Corpuscular Hemoglobin 30pg (25-35) 29pg (25-35) Mean Corpuscular Hemoglobin Concent 33g/dL (31-37) 33g/dL (31-37) Red Cell Distribution Width 13.0% (11.5-14.5) 13.0% (11.5-14.5) Platelet Count 320x10^3/uL (140-400) 369x10^3/uL (140-400) Neutrophils (%) (Auto) 86% (31-73) 85% (31-73) Lymphocytes (%) (Auto) 10% (24-48) 10% (24-48) Monocytes (%) (Auto) 4% (0-9) 5% (0-9) Eosinophils (%) (Auto) 0% (0-3) 0% (0-3) Basophils (%) (Auto) 0% (0-3) 0% (0-3) Neutrophils # (Auto) 12.5x10^3uL (1.8-7.7) 14.6x10^3uL (1.8-7.7) Lymphocytes # (Auto) 1.5x10^3/uL (1.0-4.8) 1.7x10^3/uL (1.0-4.8) Monocytes # (Auto) 0.5x10^3/uL (0.0-1.1) 0.8x10^3/uL (0.0-1.1) Eosinophils # (Auto) 0.0x10^3/uL (0.0-0.7) 0.0x10^3/uL (0.0-0.7) Basophils # (Auto) 0.0x10^3/uL (0.0-0.2) 0.0x10^3/uL (0.0-0.2) Prothrombin Time 16.9SEC (11.7-14.0) Prothromb Time International Ratio 1.5 (0.8-1.1) Laboratory Tests Test 09/05/16 03:50 White Blood Count 17.2x10^3/uL (4.0-11.0) Red Blood Count 4.30x10^6/uL (4.30-5.70) Hemoglobin 12.6g/dL (13.0-17.5) Hematocrit 38.5% (39.0-53.0) Mean Corpuscular Volume 90fL (79-100) Mean Corpuscular Hemoglobin 29pg (25-35) Mean Corpuscular Hemoglobin Concent 33g/dL (31-37) Red Cell Distribution Width 13.0% (11.5-14.5) Platelet Count 369x10^3/uL (140-400) Neutrophils (%) (Auto) 85% (31-73) Lymphocytes (%) (Auto) 10% (24-48) Monocytes (%) (Auto) 5% (0-9) Eosinophils (%) (Auto) 0% (0-3) Basophils (%) (Auto) 0% (0-3) Neutrophils # (Auto) 14.6x10^3uL (1.8-7.7) Lymphocytes # (Auto) 1.7x10^3/uL (1.0-4.8) Monocytes # (Auto) 0.8x10^3/uL (0.0-1.1) Eosinophils # (Auto) 0.0x10^3/uL (0.0-0.7) Basophils # (Auto) 0.0x10^3/uL (0.0-0.2) Sodium Level 135mmol/L (136-145) Potassium Level 4.2mmol/L (3.5-5.1) Chloride Level 99mmol/L (98-107) Carbon Dioxide Level 26mmol/L (21-32) Anion Gap 10 (6-14) Blood Urea Nitrogen 11mg/dL (8-26) Creatinine 0.6mg/dL (0.7-1.3) Estimated GFR (Cockcroft-Gault) 173.6 Glucose Level 113mg/dL (70-99) Calcium Level 8.0mg/dL (8.5-10.1) Phosphorus Level 3.7mg/dL (2.6-4.7) Magnesium Level 2.3mg/dL (1.8-2.4) Problem List Problems Medical Problems: (1) Abdominal pain Status: Acute (2) Pneumoperitoneum Status: Acute Assessment/Plan abx, drains Problems: RODRIGUE LÓPEZ MD 09/05/16 1300: SURGICAL PROGRESS NOTE Assessment/Plan pt seen and examined up to chair appears more comfortable, alert NG trial in AM Problems: AASHISH LEYVA APRN Sep 05, 2016 10:42 RODRIGUE LÓPEZ MD Sep 05, 2016 13:00
[2016-09-05 11:15] VITALS: BP 117/81
--- NOTE | 2016-09-05 11:26 | PDOC ---
Infectious Disease Note Subjective Subjective Doing better. Some pain. No flatus ROS ROS GEN: Denies fevers, chills, sweats HEENT: Denies blurred vision, sore throat CV: Denies chest pain RESP: Denies shortness of air, cough GI: Denies n/v/d NEURO: Denies confusion, dizziness MSK: Denies weakness, joint pain/swelling Vital Sign Vital Signs Vital Signs Date Time Temp Pulse Resp B/P Pulse Ox O2 Delivery O2 Flow Rate FiO2 09/05/16 11:15 97.4 116 18 117/81 92 Room Air 97.4 09/05/16 10:23 0.5 Physical Exam PHYSICAL EXAM GENERAL: NAD, Alert, in chair HEENT: PERRL, OC/OP - clear NECK: Supple, no JVD, no LN LUNGS: Clear HEART: S1S2, no gallop, no murmur ABD: Soft, NT, no organomegaly, no rebound, NGT. Bilat drains with pus EXT: No edema, no cyanosis TOLL RELIEF OPERATOR: Alert, oriented x 3, no focal neurologic deficit SKIN: No rash IV: ok Labs Lab Laboratory Tests Test 09/05/16 03:50 White Blood Count 17.2x10^3/uL (4.0-11.0) Red Blood Count 4.30x10^6/uL (4.30-5.70) Hemoglobin 12.6g/dL (13.0-17.5) Hematocrit 38.5% (39.0-53.0) Mean Corpuscular Volume 90fL (79-100) Mean Corpuscular Hemoglobin 29pg (25-35) Mean Corpuscular Hemoglobin Concent 33g/dL (31-37) Red Cell Distribution Width 13.0% (11.5-14.5) Platelet Count 369x10^3/uL (140-400) Neutrophils (%) (Auto) 85% (31-73) Lymphocytes (%) (Auto) 10% (24-48) Monocytes (%) (Auto) 5% (0-9) Eosinophils (%) (Auto) 0% (0-3) Basophils (%) (Auto) 0% (0-3) Neutrophils # (Auto) 14.6x10^3uL (1.8-7.7) Lymphocytes # (Auto) 1.7x10^3/uL (1.0-4.8) Monocytes # (Auto) 0.8x10^3/uL (0.0-1.1) Eosinophils # (Auto) 0.0x10^3/uL (0.0-0.7) Basophils # (Auto) 0.0x10^3/uL (0.0-0.2) Sodium Level 135mmol/L (136-145) Potassium Level 4.2mmol/L (3.5-5.1) Chloride Level 99mmol/L (98-107) Carbon Dioxide Level 26mmol/L (21-32) Anion Gap 10 (6-14) Blood Urea Nitrogen 11mg/dL (8-26) Creatinine 0.6mg/dL (0.7-1.3) Estimated GFR (Cockcroft-Gault) 173.6 Glucose Level 113mg/dL (70-99) Calcium Level 8.0mg/dL (8.5-10.1) Phosphorus Level 3.7mg/dL (2.6-4.7) Magnesium Level 2.3mg/dL (1.8-2.4) Objective Assessment Diverticulitis Perf viscous -on Zosyn Abd abscess Leukocytosis - ? reactive - clinically better Plan Plan of Care Cont Meropenem/Fluconazole F/u labs and cults D/w brother MIRIAM ORTEZ MD Sep 05, 2016 11:26
--- NOTE | 2016-09-05 12:00 | PDOC ---
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 No flatus/stool. No nausea. Objective: Vital Signs: Vital Signs Date Time Temp Pulse Resp B/P Pulse Ox O2 Delivery O2 Flow Rate FiO2 09/05/16 11:15 97.4 116 18 117/81 92 Room Air 97.4 09/05/16 10:23 0.5 Labs: Laboratory Tests Test 09/05/16 03:50 White Blood Count 17.2x10^3/uL Red Blood Count 4.30x10^6/uL Hemoglobin 12.6g/dL Hematocrit 38.5% Mean Corpuscular Volume 90fL Mean Corpuscular Hemoglobin 29pg Mean Corpuscular Hemoglobin Concent 33g/dL Red Cell Distribution Width 13.0% Platelet Count 369x10^3/uL Neutrophils (%) (Auto) 85% Lymphocytes (%) (Auto) 10% Monocytes (%) (Auto) 5% Eosinophils (%) (Auto) 0% Basophils (%) (Auto) 0% Neutrophils # (Auto) 14.6x10^3uL Lymphocytes # (Auto) 1.7x10^3/uL Monocytes # (Auto) 0.8x10^3/uL Eosinophils # (Auto) 0.0x10^3/uL Basophils # (Auto) 0.0x10^3/uL Sodium Level 135mmol/L Potassium Level 4.2mmol/L Chloride Level 99mmol/L Carbon Dioxide Level 26mmol/L Anion Gap 10 Blood Urea Nitrogen 11mg/dL Creatinine 0.6mg/dL Estimated GFR (Cockcroft-Gault) 173.6 Glucose Level 113mg/dL Calcium Level 8.0mg/dL Phosphorus Level 3.7mg/dL Magnesium Level 2.3mg/dL PE: GEN: NAD, up to chair, smiles a little LUNGS: CTAB HEART: tachycardic ABD: RLQ and LLQ tenderness, NG bilious, abd drains cloudy/pus NEURO/PSYCH: A & O 3 A/P: Abdominal pain w/ pneumoperitoneum, abscesses -s/p drains by IR 09/04, also has NG -on IV antibiotics per ID -surgery following Leukocytosis, fever, tachycardia -- Looks better today. Will review w/ Dr. Sawant. UMM RIVAS Sep 05, 2016 12:00
[2016-09-05] MEDS: FLUCONAZOLE 400MG/200ML PREMIX 200 ML IV SCH (12:02)
[2016-09-05] MEDS: TPN PER PHARMACY MC PRN (13:22)
--- NOTE | 2016-09-05 14:09 | PDOC ---
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 fu with id, ir, sx, gi 2. IR abscess drainage on 09/04 3. abx changed to meropenum and flagyl as per ID on 09/04 cont CONVERTIBLE TOP INSTALLER for pain control dvt ppx TPN NPO with NGT ,december trial in am as per sx History of Present Illness History of Present Illness prior pain 11/27 w/ CONVERTIBLE TOP INSTALLER, he looks more calm STILL fever overnight dry mouth, hungry NG tube placed IR for abscess drain 09/04 Vitals Vitals Vital Signs Date Time Temp Pulse Resp B/P Pulse Ox O2 Delivery O2 Flow Rate FiO2 09/05/16 11:15 97.4 116 18 117/81 92 Room Air 97.4 09/05/16 10:23 0.5 Physical Exam General: Alert, Oriented X3, Cooperative, No acute distress Heart: Regular rate, No murmurs Lungs: Clear Abdomen: Soft, Other (drains cloudy serous, bl [place] drainage, mild tenderness on exam) Extremities: No clubbing, No cyanosis, No edema, Normal pulses Skin: No rashes, No breakdown Labs LABS Laboratory Tests Test 09/05/16 03:50 White Blood Count 17.2x10^3/uL (4.0-11.0) Red Blood Count 4.30x10^6/uL (4.30-5.70) Hemoglobin 12.6g/dL (13.0-17.5) Hematocrit 38.5% (39.0-53.0) Mean Corpuscular Volume 90fL (79-100) Mean Corpuscular Hemoglobin 29pg (25-35) Mean Corpuscular Hemoglobin Concent 33g/dL (31-37) Red Cell Distribution Width 13.0% (11.5-14.5) Platelet Count 369x10^3/uL (140-400) Neutrophils (%) (Auto) 85% (31-73) Lymphocytes (%) (Auto) 10% (24-48) Monocytes (%) (Auto) 5% (0-9) Eosinophils (%) (Auto) 0% (0-3) Basophils (%) (Auto) 0% (0-3) Neutrophils # (Auto) 14.6x10^3uL (1.8-7.7) Lymphocytes # (Auto) 1.7x10^3/uL (1.0-4.8) Monocytes # (Auto) 0.8x10^3/uL (0.0-1.1) Eosinophils # (Auto) 0.0x10^3/uL (0.0-0.7) Basophils # (Auto) 0.0x10^3/uL (0.0-0.2) Sodium Level 135mmol/L (136-145) Potassium Level 4.2mmol/L (3.5-5.1) Chloride Level 99mmol/L (98-107) Carbon Dioxide Level 26mmol/L (21-32) Anion Gap 10 (6-14) Blood Urea Nitrogen 11mg/dL (8-26) Creatinine 0.6mg/dL (0.7-1.3) Estimated GFR (Cockcroft-Gault) 173.6 Glucose Level 113mg/dL (70-99) Calcium Level 8.0mg/dL (8.5-10.1) Phosphorus Level 3.7mg/dL (2.6-4.7) Magnesium Level 2.3mg/dL (1.8-2.4) Review of Systems Review of Systems no fever, chills, sob or chest pain Assessment and Plan Assessmemt and Plan Problems Medical Problems: (1) Abdominal pain Status: Acute (2) Pneumoperitoneum Status: Acute Problems: Comment Review of Relevant I have reviewed the following items crystal (where applicable) has been applied. Labs Laboratory Tests Test 09/04/16 04:30 09/04/16 08:05 09/05/16 03:50 Sodium Level 137mmol/L (136-145) 135mmol/L (136-145) Potassium Level 3.8mmol/L (3.5-5.1) 4.2mmol/L (3.5-5.1) Chloride Level 100mmol/L (98-107) 99mmol/L (98-107) Carbon Dioxide Level 29mmol/L (21-32) 26mmol/L (21-32) Anion Gap 8 (6-14) 10 (6-14) Blood Urea Nitrogen 13mg/dL (8-26) 11mg/dL (8-26) Creatinine 0.7mg/dL (0.7-1.3) 0.6mg/dL (0.7-1.3) Estimated GFR (Cockcroft-Gault) 145.3 173.6 Glucose Level 111mg/dL (70-99) 113mg/dL (70-99) Calcium Level 8.1mg/dL (8.5-10.1) 8.0mg/dL (8.5-10.1) Phosphorus Level 3.7mg/dL (2.6-4.7) 3.7mg/dL (2.6-4.7) Magnesium Level 2.1mg/dL (1.8-2.4) 2.3mg/dL (1.8-2.4) White Blood Count 14.6x10^3/uL (4.0-11.0) 17.2x10^3/uL (4.0-11.0) Red Blood Count 4.06x10^6/uL (4.30-5.70) 4.30x10^6/uL (4.30-5.70) Hemoglobin 12.1g/dL (13.0-17.5) 12.6g/dL (13.0-17.5) Hematocrit 36.2% (39.0-53.0) 38.5% (39.0-53.0) Mean Corpuscular Volume 89fL (79-100) 90fL (79-100) Mean Corpuscular Hemoglobin 30pg (25-35) 29pg (25-35) Mean Corpuscular Hemoglobin Concent 33g/dL (31-37) 33g/dL (31-37) Red Cell Distribution Width 13.0% (11.5-14.5) 13.0% (11.5-14.5) Platelet Count 320x10^3/uL (140-400) 369x10^3/uL (140-400) Neutrophils (%) (Auto) 86% (31-73) 85% (31-73) Lymphocytes (%) (Auto) 10% (24-48) 10% (24-48) Monocytes (%) (Auto) 4% (0-9) 5% (0-9) Eosinophils (%) (Auto) 0% (0-3) 0% (0-3) Basophils (%) (Auto) 0% (0-3) 0% (0-3) Neutrophils # (Auto) 12.5x10^3uL (1.8-7.7) 14.6x10^3uL (1.8-7.7) Lymphocytes # (Auto) 1.5x10^3/uL (1.0-4.8) 1.7x10^3/uL (1.0-4.8) Monocytes # (Auto) 0.5x10^3/uL (0.0-1.1) 0.8x10^3/uL (0.0-1.1) Eosinophils # (Auto) 0.0x10^3/uL (0.0-0.7) 0.0x10^3/uL (0.0-0.7) Basophils # (Auto) 0.0x10^3/uL (0.0-0.2) 0.0x10^3/uL (0.0-0.2) Prothrombin Time 16.9SEC (11.7-14.0) Prothromb Time International Ratio 1.5 (0.8-1.1) Laboratory Tests Test 09/05/16 03:50 White Blood Count 17.2x10^3/uL (4.0-11.0) Red Blood Count 4.30x10^6/uL (4.30-5.70) Hemoglobin 12.6g/dL (13.0-17.5) Hematocrit 38.5% (39.0-53.0) Mean Corpuscular Volume 90fL (79-100) Mean Corpuscular Hemoglobin 29pg (25-35) Mean Corpuscular Hemoglobin Concent 33g/dL (31-37) Red Cell Distribution Width 13.0% (11.5-14.5) Platelet Count 369x10^3/uL (140-400) Neutrophils (%) (Auto) 85% (31-73) Lymphocytes (%) (Auto) 10% (24-48) Monocytes (%) (Auto) 5% (0-9) Eosinophils (%) (Auto) 0% (0-3) Basophils (%) (Auto) 0% (0-3) Neutrophils # (Auto) 14.6x10^3uL (1.8-7.7) Lymphocytes # (Auto) 1.7x10^3/uL (1.0-4.8) Monocytes # (Auto) 0.8x10^3/uL (0.0-1.1) Eosinophils # (Auto) 0.0x10^3/uL (0.0-0.7) Basophils # (Auto) 0.0x10^3/uL (0.0-0.2) Sodium Level 135mmol/L (136-145) Potassium Level 4.2mmol/L (3.5-5.1) Chloride Level 99mmol/L (98-107) Carbon Dioxide Level 26mmol/L (21-32) Anion Gap 10 (6-14) Blood Urea Nitrogen 11mg/dL (8-26) Creatinine 0.6mg/dL (0.7-1.3) Estimated GFR (Cockcroft-Gault) 173.6 Glucose Level 113mg/dL (70-99) Calcium Level 8.0mg/dL (8.5-10.1) Phosphorus Level 3.7mg/dL (2.6-4.7) Magnesium Level 2.3mg/dL (1.8-2.4) Microbiology 08/30/16 Blood Culture - Final, Complete NO GROWTH AFTER 5 DAYS 08/30/16 Urine Culture - Final, Complete 08/30/16 Urine Culture Result 1 (TOAN) - Final, Complete 09/04/16 Gram Stain - Final, Complete Medications Current Medications Sodium Chloride (Iv Sodium Chloride 0.9% 1000ml Bag) 1,000 ml @ 1,000 mls/hr Q1H IV Last administered on 08/30/16 19:58; Start 08/30/16 at 19:45; Stop 07/06 at 20:44; Status DC Morphine Sulfate 4 mg 1X ONCE IV Last administered on 08/30/16 19:58; Start 08/30/16 at 19:45; Stop 08/30/16 at 19:46; Status DC Ondansetron HCl (Zofran) 4 mg 1X ONCE IV Last administered on 08/30/16 19:57 ; Start 08/30/16 at 19:45; Stop 08/30/16 at 19:46; Status DC Iohexol (Omnipaque 300 Mg/ml) 75 ml 1X ONCE IV Last administered on 08/30/16 20:57; Start 08/30/16 at 20:00; Stop 08/30/16 at 20:01; Status DC Morphine Sulfate 4 mg 1X ONCE IV Last administered on 08/30/16 22:22; Start 08/30/16 at 21:45; Stop 08/30/16 at 21:46; Status DC Piperacillin Sod/ Tazobactam Sod 1 each 1 each PRN DAILY PRN MC SEE COMMENTS; Start 08/30/16 at 21:45; Stop 09/02/16 at 13:43; Status DC Piperacillin Sod/ Tazobactam Sod/ Sodium Chloride (Zosyn/Iv Sodium Chloride 0.9 % 50ml) 50 ml @ 100 mls/hr Q6HRS IV Last administered on 09/04/16 05:07; Start 08/30/16 at 22:00; Stop 09/04/16 at 10:30; Status DC Ondansetron HCl (Zofran) 4 mg PRN Q8HRS PRN IV NAUSEA/VOMITING; Start 08/30/16 at 22:30; Stop 08/31/16 at 22:29; Status DC Morphine Sulfate 4 mg 4 mg PRN Q2HR PRN IV PAIN Last administered on 08/30/16 23:16; Start 08/30/16 at 22:30; Stop 08/31/16 at 22:29; Status DC Sodium Chloride (Iv Sodium Chloride 0.9% 1000ml Bag) 1,000 ml @ 125 mls/hr Q8H IV Last administered on 08/31/16 09:13; Start 08/30/16 at 22:30; Stop at 13:05; Status DC Acetaminophen 650 mg 650 mg PRN Q4HRS PRN PO FEVER Last administered on 23:15; Start 08/30/16 at 22:30; Stop 08/31/16 at 22:29; Status DC Hydromorphone HCl 30 ml @ 0 mls/hr CONT PRN PRN IV PROTOCOL Last administered on 09/05/16 09:02; Start 08/30/16 at 23:30 Potassium Chloride/Dextrose/ Sod Cl 1,000 ml @ 100 mls/hr Q10H IV Last administered on 09/01/16 03:52; Start 08/31/16 at 13:15; Stop 09/01/16 at 14:37 ; Status DC Sodium Chloride 1,000 ml @ 1,000 mls/hr 1X ONCE IV Last administered on 14:24; Start 08/31/16 at 13:15; Stop 08/31/16 at 14:14; Status DC Albumin Human (Plasmanate) 500 ml @ 125 mls/hr 1X ONCE IV Last administered on 08/31/16 17:21; Start 08/31/16 at 17:00; Stop 08/31/16 at 20:59; Status DC Ondansetron HCl 4 mg 4 mg PRN Q6HRS PRN IV NAUSEA/VOMITING; Start 08/31/16 at 22:45 Amino Acids/ Glycerin/ Electrolytes (Procalamine) 1,000 ml @ 100 mls/hr Q10H IV Last administered on 09/05/16 10:00; Start 09/01/16 at 14:45; Stop at 21:59 Acetaminophen (Tylenol) 650 mg PRN Q4HRS PRN VA MILD PAIN / TEMP Last administered on 09/03/16 20:39; Start 09/01/16 at 20:30 Lorazepam (Ativan) 1 mg PRN Q4HRS PRN IV ANXIETY / AGITATION Last administered on 09/03/16 17:57; Start 09/02/16 at 10:30 Saliva Substitute (Biotene Moisturizing Mouth) 2 spray PRN Q15MIN PRN PO DRY MOUTH Last administered on 09/02/16 18:13; Start 09/02/16 at 10:30 Iohexol (Omnipaque 240 Mg/ml) 30 ml 1X ONCE PO Last administered on 09/03/16 10:18; Start 09/03/16 at 09:00; Stop 09/03/16 at 09:01; Status DC Iohexol (Omnipaque 300 Mg/ml) 75 ml 1X ONCE IV Last administered on 09/03/16 10:18; Start 09/03/16 at 09:00; Stop 09/03/16 at 09:01; Status DC Info (Do NOT chart on this entry -- for MONITORING) 1 each PRN DAILY PRN MC SEE COMMENTS; Start 09/03/16 at 08:45; Stop 09/05/16 at 08:44; Status DC Info 1 each PRN DAILY PRN MC SEE COMMENTS Last administered on 09/05/16 13:22 ; Start 09/04/16 at 15:00 Midazolam HCl (Versed) 5 mg STK-MED ONCE .ROUTE ; Start 09/04/16 at 09:54; Stop 09/04/16 at 09:55; Status DC Fentanyl Citrate (Fentanyl 5ml Vial) 250 mcg STK-MED ONCE .ROUTE ; Start at 09:54; Stop 09/04/16 at 09:55; Status DC Lidocaine/Sodium Bicarbonate 20 ml 20 ml STK-MED ONCE IJ ; Start 09/04/16 at 09: 55; Stop 09/04/16 at 09:56; Status DC Meropenem 1 gm/ Sodium Chloride 100 ml @ 200 mls/hr Q8HRS IV Last administered on 09/05/16 05:29; Start 09/04/16 at 14:00 Fluconazole/ Sodium Chloride (Diflucan 400mg/ 200ml Premix) 200 ml @ 100 mls/ hr Q24H IV Last administered on 09/05/16 12:02; Start 09/04/16 at 11:00 Lidocaine/Sodium Bicarbonate (Buffered Lidocaine 1%) 3 ml 1X ONCE IJ Last administered on 09/04/16 10:49; Start 09/04/16 at 10:45; Stop 09/04/16 at 10:48 ; Status DC Midazolam HCl (Versed) 0.5 mg 1X ONCE IV Last administered on 09/04/16 10:50 ; Start 09/04/16 at 10:45; Stop 09/04/16 at 10:48; Status DC Fentanyl Citrate 100 mcg 100 mcg 1X ONCE IV Last administered on 09/04/16 10: 50; Start 09/04/16 at 10:45; Stop 09/04/16 at 10:48; Status DC Sodium Chloride/ Potassium Chloride/ Potassium Phosphate/ Magnesium Sulfate/ Calcium Gluconate/ Multivitamins/ Minerals/Chromium/ Copper/Manganese/ Seleni/Zn /Total Parenteral Nutrition/Amino Acids/Dextrose/ Fat Emulsion Intravenous ( Sodium Chloride/ Potassium Phospha... 1,512 ml @ 63 mls/hr TPN CONT IV ; Start 09/05/16 at 22:00; Stop 09/06/16 at 21:59 Vitals/I & O Vital Sign - Last 24 Hours 09/04/16 09/04/16 09/04/16 09/04/16 15:25 20:00 20:00 23:00 Temp 100.5 97.9 99.9 100.5 97.9 99.9 Pulse 107 120 129 Resp B/P 114/73 133/77 127/78 Pulse Ox 96 96 94 O2 Delivery Nasal Cannula Nasal Cannula Nasal Cannula O2 Flow Rate 1.5 1.0 1.0 09/04/16 09/05/16 09/05/16 09/05/16 23:43 03:00 07:13 07:45 Temp 99.9 99.3 98.8 99.9 99.3 98.8 Pulse 123 95 Resp 18 B/P 121/77 112/79 Pulse Ox 92 92 O2 Delivery Room Air Nasal Cannula O2 Flow Rate 0.5 09/05/16 09/05/16 09/05/16 09:02 10:23 11:15 Temp 97.4 97.4 Pulse 116 Resp 18 B/P 117/81 Pulse Ox 92 O2 Delivery Room Air Nasal Cannula Room Air O2 Flow Rate 0.5 Intake and Output 09/04/16 09/04/16 09/05/16 15:00 23:00 07:00 Intake Total 20 ml Output Total 430 ml 1870 ml 660 ml Balance -430 ml -1870 ml -640 ml MARKY CALDWELL MD Sep 05, 2016 14:09
[2016-09-05 14:39] VITALS: BP 110/75
[2016-09-05 19:00] VITALS: BP 117/80
[2016-09-05] MEDS ORDERED: TOTAL PARENTERAL NUTRITION 1,424.9987 ML, AMINO ACIDS 10 % 60 GM, DEXTROSE 70 % IN WATE... IV SCH ×10 (22:00)
[2016-09-05 23:00] VITALS: BP 110/81
[2016-09-06 03:00] VITALS: BP 110/73
[2016-09-06] MEDS: MEROPENEM 1 GM in IV NORMAL SALINE 100ML 100 ML IV SCH ×3 (05:46→22:10)
[2016-09-06 06:58] LABS: BASO % 0 % (0-3); EOS % 0 % (0-3); HEMATOCRIT 40.8 % (39.0-53.0); HEMOGLOBIN 12.8 g/dL (13.0-17.5); LYMPH # 1.5 x10^3/uL (1.0-4.8); LYMPH % 7 % (24-48); MEAN CORPUSCULAR HEMOGLOBIN 29 pg (25-35); MEAN CORPUSCULAR HGB CONC 31 g/dL (31-37); MEAN CORPUSCULAR VOLUME 93 fL (79-100); MONO % 3 % (0-9); NEUT % 89 % (31-73); PLATELET COUNT 304 x10^3/uL (140-400); RED BLOOD COUNT 4.37 x10^6/uL (4.30-5.70); RED CELL DISTRIBUTION WIDTH 13.4 % (11.5-14.5); WHITE BLOOD COUNT 20.9 x10^3/uL (4.0-11.0)
[2016-09-06 07:00] VITALS: BP 118/76
[2016-09-06 07:12] LABS: CALCIUM 8.2 mg/dL (8.5-10.1); CREATININE 0.6 mg/dL (0.7-1.3); GFR 173.6; MAGNESIUM 2.3 mg/dL (1.8-2.4); PHOSPHORUS 3.4 mg/dL (2.6-4.7); POTASSIUM 4.7 mmol/L (3.5-5.1)
--- NOTE | 2016-09-06 08:30 | PDOC ---
Infectious Disease Note Subjective Subjective Doing better. Some pain. No flatus ROS ROS GEN: Denies fevers, chills, sweats HEENT: Denies blurred vision, sore throat CV: Denies chest pain RESP: Denies shortness of air, cough GI: Denies n/v/d NEURO: Denies confusion, dizziness MSK: Denies weakness, joint pain/swelling Vital Sign Vital Signs Vital Signs Date Time Temp Pulse Resp B/P Pulse Ox O2 Delivery O2 Flow Rate FiO2 09/06/16 03:00 99.3 99 20 110/73 92 Room Air 99.3 09/05/16 10:23 0.5 Physical Exam PHYSICAL EXAM GENERAL: NAD, Alert - in bed HEENT: PERRL, OC/OP -clear NECK: Supple, no JVD, no LN LUNGS: Clear HEART: S1S2, no gallop, no murmur ABD: Soft, NT, no organomegaly, no rebound. 2 drains - with purulent material. 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, no focal neurologic deficit SKIN: No rash IV: RUE PICC clean Labs Lab Laboratory Tests Test 09/05/16 21:18 09/06/16 06:20 09/06/16 07:45 Glucose (Fingerstick) 117mg/dL (70-99) 116mg/dL (70-99) White Blood Count 20.9x10^3/uL (4.0-11.0) Red Blood Count 4.37x10^6/uL (4.30-5.70) Hemoglobin 12.8g/dL (13.0-17.5) Hematocrit 40.8% (39.0-53.0) Mean Corpuscular Volume 93fL (79-100) Mean Corpuscular Hemoglobin 29pg (25-35) Mean Corpuscular Hemoglobin Concent 31g/dL (31-37) Red Cell Distribution Width 13.4% (11.5-14.5) Platelet Count 304x10^3/uL (140-400) Neutrophils (%) (Auto) 89% (31-73) Lymphocytes (%) (Auto) 7% (24-48) Monocytes (%) (Auto) 3% (0-9) Eosinophils (%) (Auto) 0% (0-3) Basophils (%) (Auto) 0% (0-3) Neutrophils # (Auto) 18.6x10^3uL (1.8-7.7) Lymphocytes # (Auto) 1.5x10^3/uL (1.0-4.8) Monocytes # (Auto) 0.7x10^3/uL (0.0-1.1) Eosinophils # (Auto) 0.1x10^3/uL (0.0-0.7) Basophils # (Auto) 0.0x10^3/uL (0.0-0.2) Sodium Level 134mmol/L (136-145) Potassium Level 4.7mmol/L (3.5-5.1) Chloride Level 100mmol/L (98-107) Carbon Dioxide Level 25mmol/L (21-32) Anion Gap 9 (6-14) Blood Urea Nitrogen 10mg/dL (8-26) Creatinine 0.6mg/dL (0.7-1.3) Estimated GFR (Cockcroft-Gault) 173.6 Glucose Level 134mg/dL (70-99) Calcium Level 8.2mg/dL (8.5-10.1) Phosphorus Level 3.4mg/dL (2.6-4.7) Magnesium Level 2.3mg/dL (1.8-2.4) Triglycerides Level 107mg/dL (0-150) Objective Assessment Diverticulitis Perf viscous -on Zosyn Abd abscess - GNR Leukocytosis - ? reactive but up again - clinically better Plan Plan of Care Cont Meropenem/Fluconazole Dose Levoflox times one F/u labs and cults D/w brother MIRIAM ORTEZ MD Sep 06, 2016 08:30
[2016-09-06 10:58] VITALS: BP 121/81
[2016-09-06] MEDS: FLUCONAZOLE 400MG/200ML PREMIX 200 ML IV SCH (11:20)
[2016-09-06] MEDS: TPN PER PHARMACY MC PRN (12:54)
--- NOTE | 2016-09-06 13:00 | PDOC ---
SURGICAL PROGRESS NOTE Subjective no new complaints no nausea or emesis with NG off suction Vital Signs Vital Signs Date Time Temp Pulse Resp B/P Pulse Ox O2 Delivery O2 Flow Rate FiO2 09/06/16 10:58 98.2 112 20 121/81 97 Room Air 98.2 09/05/16 10:23 0.5 Tmax 100.4 a little less tachy I&O Intake and Output 09/06/16 07:00 Intake Total 300 ml Output Total 970 ml Balance -670 ml Intake Oral 300 ml Output Urine Total 600 ml Gastric Drainage Total 60 ml Drainage Total 310 ml # Voids 3 PATIENT HAS A BAKER: No General: Alert, Oriented X3, No acute distress Abdomen: Soft, Other (mildly TTP without localization) Labs Laboratory Tests Test 09/05/16 03:50 09/05/16 21:18 09/06/16 06:20 09/06/16 07:45 White Blood Count 17.2x10^3/uL (4.0-11.0) 20.9x10^3/uL (4.0-11.0) Red Blood Count 4.30x10^6/uL (4.30-5.70) 4.37x10^6/uL (4.30-5.70) Hemoglobin 12.6g/dL (13.0-17.5) 12.8g/dL (13.0-17.5) Hematocrit 38.5% (39.0-53.0) 40.8% (39.0-53.0) Mean Corpuscular Volume 90fL (79-100) 93fL (79-100) Mean Corpuscular Hemoglobin 29pg (25-35) 29pg (25-35) Mean Corpuscular Hemoglobin Concent 33g/dL (31-37) 31g/dL (31-37) Red Cell Distribution Width 13.0% (11.5-14.5) 13.4% (11.5-14.5) Platelet Count 369x10^3/uL (140-400) 304x10^3/uL (140-400) Neutrophils (%) (Auto) 85% (31-73) 89% (31-73) Lymphocytes (%) (Auto) 10% (24-48) 7% (24-48) Monocytes (%) (Auto) 5% (0-9) 3% (0-9) Eosinophils (%) (Auto) 0% (0-3) 0% (0-3) Basophils (%) (Auto) 0% (0-3) 0% (0-3) Neutrophils # (Auto) 14.6x10^3uL (1.8-7.7) 18.6x10^3uL (1.8-7.7) Lymphocytes # (Auto) 1.7x10^3/uL (1.0-4.8) 1.5x10^3/uL (1.0-4.8) Monocytes # (Auto) 0.8x10^3/uL (0.0-1.1) 0.7x10^3/uL (0.0-1.1) Eosinophils # (Auto) 0.0x10^3/uL (0.0-0.7) 0.1x10^3/uL (0.0-0.7) Basophils # (Auto) 0.0x10^3/uL (0.0-0.2) 0.0x10^3/uL (0.0-0.2) Sodium Level 135mmol/L (136-145) 134mmol/L (136-145) Potassium Level 4.2mmol/L (3.5-5.1) 4.7mmol/L (3.5-5.1) Chloride Level 99mmol/L (98-107) 100mmol/L (98-107) Carbon Dioxide Level 26mmol/L (21-32) 25mmol/L (21-32) Anion Gap 10 (6-14) 9 (6-14) Blood Urea Nitrogen 11mg/dL (8-26) 10mg/dL (8-26) Creatinine 0.6mg/dL (0.7-1.3) 0.6mg/dL (0.7-1.3) Estimated GFR (Cockcroft-Gault) 173.6 173.6 Glucose Level 113mg/dL (70-99) 134mg/dL (70-99) Calcium Level 8.0mg/dL (8.5-10.1) 8.2mg/dL (8.5-10.1) Phosphorus Level 3.7mg/dL (2.6-4.7) 3.4mg/dL (2.6-4.7) Magnesium Level 2.3mg/dL (1.8-2.4) 2.3mg/dL (1.8-2.4) Glucose (Fingerstick) 117mg/dL (70-99) 116mg/dL (70-99) Triglycerides Level 107mg/dL (0-150) Laboratory Tests Test 09/05/16 21:18 09/06/16 06:20 09/06/16 07:45 Glucose (Fingerstick) 117mg/dL (70-99) 116mg/dL (70-99) White Blood Count 20.9x10^3/uL (4.0-11.0) Red Blood Count 4.37x10^6/uL (4.30-5.70) Hemoglobin 12.8g/dL (13.0-17.5) Hematocrit 40.8% (39.0-53.0) Mean Corpuscular Volume 93fL (79-100) Mean Corpuscular Hemoglobin 29pg (25-35) Mean Corpuscular Hemoglobin Concent 31g/dL (31-37) Red Cell Distribution Width 13.4% (11.5-14.5) Platelet Count 304x10^3/uL (140-400) Neutrophils (%) (Auto) 89% (31-73) Lymphocytes (%) (Auto) 7% (24-48) Monocytes (%) (Auto) 3% (0-9) Eosinophils (%) (Auto) 0% (0-3) Basophils (%) (Auto) 0% (0-3) Neutrophils # (Auto) 18.6x10^3uL (1.8-7.7) Lymphocytes # (Auto) 1.5x10^3/uL (1.0-4.8) Monocytes # (Auto) 0.7x10^3/uL (0.0-1.1) Eosinophils # (Auto) 0.1x10^3/uL (0.0-0.7) Basophils # (Auto) 0.0x10^3/uL (0.0-0.2) Sodium Level 134mmol/L (136-145) Potassium Level 4.7mmol/L (3.5-5.1) Chloride Level 100mmol/L (98-107) Carbon Dioxide Level 25mmol/L (21-32) Anion Gap 9 (6-14) Blood Urea Nitrogen 10mg/dL (8-26) Creatinine 0.6mg/dL (0.7-1.3) Estimated GFR (Cockcroft-Gault) 173.6 Glucose Level 134mg/dL (70-99) Calcium Level 8.2mg/dL (8.5-10.1) Phosphorus Level 3.4mg/dL (2.6-4.7) Magnesium Level 2.3mg/dL (1.8-2.4) Triglycerides Level 107mg/dL (0-150) Problem List Problems Medical Problems: (1) Abdominal pain Status: Acute (2) Pneumoperitoneum Status: Acute Assessment/Plan diverticulitis with perforation, clinically better, still with leukocytosis and low grad fevers, no residual in resumption of NG suction d/c NG tube, keep NPO/ice chips for now, continue TPN, ambulate Problems: RODRIGUE LÓPEZ MD Sep 06, 2016 13:00
--- NOTE | 2016-09-06 13:22 | PDOC ---
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 fu with id, ir, sx, gi 2. IR abscess drainage on 09/04 3. abx changed to meropenum and flagyl as per ID on 09/04, levaquin 09/05 x1 cont [employer]ORATORY ASSISTANT for pain control dvt ppx TPN NPO, NGT dced as per sx. may need repeat ABD ct tmr if cont fever and higher WBC, fu cx History of Present Illness History of Present Illness prior pain 11/27 w/ [employer]OT[employer] LABORATORY ASSISTANT, he looks more calm STILL fever overnight, higher WBC dry mouth, hungry NG tube placed IR for abscess drain 09/04 Vitals Vitals Vital Signs Date Time Temp Pulse Resp B/P Pulse Ox O2 Delivery O2 Flow Rate FiO2 09/06/16 10:58 98.2 112 20 121/81 97 Room Air 98.2 09/05/16 10:23 0.5 Physical Exam General: Alert, Oriented X3, No acute distress Heart: Regular rate, No murmurs Lungs: Clear Abdomen: Soft, Other (mildly TTP without localization) Extremities: No clubbing, No cyanosis, No edema, Normal pulses Skin: No rashes, No breakdown Labs LABS Laboratory Tests Test 09/05/16 21:18 09/06/16 06:20 09/06/16 07:45 Glucose (Fingerstick) 117mg/dL (70-99) 116mg/dL (70-99) White Blood Count 20.9x10^3/uL (4.0-11.0) Red Blood Count 4.37x10^6/uL (4.30-5.70) Hemoglobin 12.8g/dL (13.0-17.5) Hematocrit 40.8% (39.0-53.0) Mean Corpuscular Volume 93fL (79-100) Mean Corpuscular Hemoglobin 29pg (25-35) Mean Corpuscular Hemoglobin Concent 31g/dL (31-37) Red Cell Distribution Width 13.4% (11.5-14.5) Platelet Count 304x10^3/uL (140-400) Neutrophils (%) (Auto) 89% (31-73) Lymphocytes (%) (Auto) 7% (24-48) Monocytes (%) (Auto) 3% (0-9) Eosinophils (%) (Auto) 0% (0-3) Basophils (%) (Auto) 0% (0-3) Neutrophils # (Auto) 18.6x10^3uL (1.8-7.7) Lymphocytes # (Auto) 1.5x10^3/uL (1.0-4.8) Monocytes # (Auto) 0.7x10^3/uL (0.0-1.1) Eosinophils # (Auto) 0.1x10^3/uL (0.0-0.7) Basophils # (Auto) 0.0x10^3/uL (0.0-0.2) Sodium Level 134mmol/L (136-145) Potassium Level 4.7mmol/L (3.5-5.1) Chloride Level 100mmol/L (98-107) Carbon Dioxide Level 25mmol/L (21-32) Anion Gap 9 (6-14) Blood Urea Nitrogen 10mg/dL (8-26) Creatinine 0.6mg/dL (0.7-1.3) Estimated GFR (Cockcroft-Gault) 173.6 Glucose Level 134mg/dL (70-99) Calcium Level 8.2mg/dL (8.5-10.1) Phosphorus Level 3.4mg/dL (2.6-4.7) Magnesium Level 2.3mg/dL (1.8-2.4) Triglycerides Level 107mg/dL (0-150) Review of Systems Review of Systems no chills, sob, chest pain Assessment and Plan Assessmemt and Plan Problems Medical Problems: (1) Abdominal pain Status: Acute (2) Pneumoperitoneum Status: Acute Problems: Comment Review of Relevant I have reviewed the following items crystal (where applicable) has been applied. Labs Laboratory Tests Test 09/05/16 03:50 09/05/16 21:18 09/06/16 06:20 09/06/16 07:45 White Blood Count 17.2x10^3/uL (4.0-11.0) 20.9x10^3/uL (4.0-11.0) Red Blood Count 4.30x10^6/uL (4.30-5.70) 4.37x10^6/uL (4.30-5.70) Hemoglobin 12.6g/dL (13.0-17.5) 12.8g/dL (13.0-17.5) Hematocrit 38.5% (39.0-53.0) 40.8% (39.0-53.0) Mean Corpuscular Volume 90fL (79-100) 93fL (79-100) Mean Corpuscular Hemoglobin 29pg (25-35) 29pg (25-35) Mean Corpuscular Hemoglobin Concent 33g/dL (31-37) 31g/dL (31-37) Red Cell Distribution Width 13.0% (11.5-14.5) 13.4% (11.5-14.5) Platelet Count 369x10^3/uL (140-400) 304x10^3/uL (140-400) Neutrophils (%) (Auto) 85% (31-73) 89% (31-73) Lymphocytes (%) (Auto) 10% (24-48) 7% (24-48) Monocytes (%) (Auto) 5% (0-9) 3% (0-9) Eosinophils (%) (Auto) 0% (0-3) 0% (0-3) Basophils (%) (Auto) 0% (0-3) 0% (0-3) Neutrophils # (Auto) 14.6x10^3uL (1.8-7.7) 18.6x10^3uL (1.8-7.7) Lymphocytes # (Auto) 1.7x10^3/uL (1.0-4.8) 1.5x10^3/uL (1.0-4.8) Monocytes # (Auto) 0.8x10^3/uL (0.0-1.1) 0.7x10^3/uL (0.0-1.1) Eosinophils # (Auto) 0.0x10^3/uL (0.0-0.7) 0.1x10^3/uL (0.0-0.7) Basophils # (Auto) 0.0x10^3/uL (0.0-0.2) 0.0x10^3/uL (0.0-0.2) Sodium Level 135mmol/L (136-145) 134mmol/L (136-145) Potassium Level 4.2mmol/L (3.5-5.1) 4.7mmol/L (3.5-5.1) Chloride Level 99mmol/L (98-107) 100mmol/L (98-107) Carbon Dioxide Level 26mmol/L (21-32) 25mmol/L (21-32) Anion Gap 10 (6-14) 9 (6-14) Blood Urea Nitrogen 11mg/dL (8-26) 10mg/dL (8-26) Creatinine 0.6mg/dL (0.7-1.3) 0.6mg/dL (0.7-1.3) Estimated GFR (Cockcroft-Gault) 173.6 173.6 Glucose Level 113mg/dL (70-99) 134mg/dL (70-99) Calcium Level 8.0mg/dL (8.5-10.1) 8.2mg/dL (8.5-10.1) Phosphorus Level 3.7mg/dL (2.6-4.7) 3.4mg/dL (2.6-4.7) Magnesium Level 2.3mg/dL (1.8-2.4) 2.3mg/dL (1.8-2.4) Glucose (Fingerstick) 117mg/dL (70-99) 116mg/dL (70-99) Triglycerides Level 107mg/dL (0-150) Laboratory Tests Test 09/05/16 21:18 09/06/16 06:20 09/06/16 07:45 Glucose (Fingerstick) 117mg/dL (70-99) 116mg/dL (70-99) White Blood Count 20.9x10^3/uL (4.0-11.0) Red Blood Count 4.37x10^6/uL (4.30-5.70) Hemoglobin 12.8g/dL (13.0-17.5) Hematocrit 40.8% (39.0-53.0) Mean Corpuscular Volume 93fL (79-100) Mean Corpuscular Hemoglobin 29pg (25-35) Mean Corpuscular Hemoglobin Concent 31g/dL (31-37) Red Cell Distribution Width 13.4% (11.5-14.5) Platelet Count 304x10^3/uL (140-400) Neutrophils (%) (Auto) 89% (31-73) Lymphocytes (%) (Auto) 7% (24-48) Monocytes (%) (Auto) 3% (0-9) Eosinophils (%) (Auto) 0% (0-3) Basophils (%) (Auto) 0% (0-3) Neutrophils # (Auto) 18.6x10^3uL (1.8-7.7) Lymphocytes # (Auto) 1.5x10^3/uL (1.0-4.8) Monocytes # (Auto) 0.7x10^3/uL (0.0-1.1) Eosinophils # (Auto) 0.1x10^3/uL (0.0-0.7) Basophils # (Auto) 0.0x10^3/uL (0.0-0.2) Sodium Level 134mmol/L (136-145) Potassium Level 4.7mmol/L (3.5-5.1) Chloride Level 100mmol/L (98-107) Carbon Dioxide Level 25mmol/L (21-32) Anion Gap 9 (6-14) Blood Urea Nitrogen 10mg/dL (8-26) Creatinine 0.6mg/dL (0.7-1.3) Estimated GFR (Cockcroft-Gault) 173.6 Glucose Level 134mg/dL (70-99) Calcium Level 8.2mg/dL (8.5-10.1) Phosphorus Level 3.4mg/dL (2.6-4.7) Magnesium Level 2.3mg/dL (1.8-2.4) Triglycerides Level 107mg/dL (0-150) Microbiology 08/30/16 Blood Culture - Final, Complete NO GROWTH AFTER 5 DAYS 08/30/16 Urine Culture - Final, Complete 08/30/16 Urine Culture Result 1 (TOAN) - Final, Complete 09/04/16 Gram Stain - Final, Complete Medications Current Medications Sodium Chloride (Iv Sodium Chloride 0.9% 1000ml Bag) 1,000 ml @ 1,000 mls/hr Q1H IV Last administered on 08/30/16 19:58; Start 08/30/16 at 19:45; Stop 07/06 at 20:44; Status DC Morphine Sulfate 4 mg 1X ONCE IV Last administered on 08/30/16 19:58; Start 08/30/16 at 19:45; Stop 08/30/16 at 19:46; Status DC Ondansetron HCl (Zofran) 4 mg 1X ONCE IV Last administered on 08/30/16 19:57 ; Start 08/30/16 at 19:45; Stop 08/30/16 at 19:46; Status DC Iohexol (Omnipaque 300 Mg/ml) 75 ml 1X ONCE IV Last administered on 08/30/16 20:57; Start 08/30/16 at 20:00; Stop 08/30/16 at 20:01; Status DC Morphine Sulfate 4 mg 1X ONCE IV Last administered on 08/30/16 22:22; Start 08/30/16 at 21:45; Stop 08/30/16 at 21:46; Status DC Piperacillin Sod/ Tazobactam Sod 1 each 1 each PRN DAILY PRN MC SEE COMMENTS; Start 08/30/16 at 21:45; Stop 09/02/16 at 13:43; Status DC Piperacillin Sod/ Tazobactam Sod/ Sodium Chloride (Zosyn/Iv Sodium Chloride 0.9 % 50ml) 50 ml @ 100 mls/hr Q6HRS IV Last administered on 09/04/16 05:07; Start 08/30/16 at 22:00; Stop 09/04/16 at 10:30; Status DC Ondansetron HCl (Zofran) 4 mg PRN Q8HRS PRN IV NAUSEA/VOMITING; Start 08/30/16 at 22:30; Stop 08/31/16 at 22:29; Status DC Morphine Sulfate 4 mg 4 mg PRN Q2HR PRN IV PAIN Last administered on 08/30/16 23:16; Start 08/30/16 at 22:30; Stop 08/31/16 at 22:29; Status DC Sodium Chloride (Iv Sodium Chloride 0.9% 1000ml Bag) 1,000 ml @ 125 mls/hr Q8H IV Last administered on 08/31/16 09:13; Start 08/30/16 at 22:30; Stop at 13:05; Status DC Acetaminophen 650 mg 650 mg PRN Q4HRS PRN PO FEVER Last administered on 23:15; Start 08/30/16 at 22:30; Stop 08/31/16 at 22:29; Status DC Hydromorphone HCl 30 ml @ 0 mls/hr CONT PRN PRN IV PROTOCOL Last administered on 09/05/16 09:02; Start 08/30/16 at 23:30 Potassium Chloride/Dextrose/ Sod Cl 1,000 ml @ 100 mls/hr Q10H IV Last administered on 09/01/16 03:52; Start 08/31/16 at 13:15; Stop 09/01/16 at 14:37 ; Status DC Sodium Chloride 1,000 ml @ 1,000 mls/hr 1X ONCE IV Last administered on 14:24; Start 08/31/16 at 13:15; Stop 08/31/16 at 14:14; Status DC Albumin Human (Plasmanate) 500 ml @ 125 mls/hr 1X ONCE IV Last administered on 08/31/16 17:21; Start 08/31/16 at 17:00; Stop 08/31/16 at 20:59; Status DC Ondansetron HCl 4 mg 4 mg PRN Q6HRS PRN IV NAUSEA/VOMITING; Start 08/31/16 at 22:45 Amino Acids/ Glycerin/ Electrolytes (Procalamine) 1,000 ml @ 100 mls/hr Q10H IV Last administered on 09/05/16 10:00; Start 09/01/16 at 14:45; Stop at 21:59; Status DC Acetaminophen (Tylenol) 650 mg PRN Q4HRS PRN MT MILD PAIN / TEMP Last administered on 09/03/16 20:39; Start 09/01/16 at 20:30 Lorazepam (Ativan) 1 mg PRN Q4HRS PRN IV ANXIETY / AGITATION Last administered on 09/03/16 17:57; Start 09/02/16 at 10:30 Saliva Substitute (Biotene Moisturizing Mouth) 2 spray PRN Q15MIN PRN PO DRY MOUTH Last administered on 09/02/16 18:13; Start 09/02/16 at 10:30 Iohexol (Omnipaque 240 Mg/ml) 30 ml 1X ONCE PO Last administered on 09/03/16 10:18; Start 09/03/16 at 09:00; Stop 09/03/16 at 09:01; Status DC Iohexol (Omnipaque 300 Mg/ml) 75 ml 1X ONCE IV Last administered on 09/03/16 10:18; Start 09/03/16 at 09:00; Stop 09/03/16 at 09:01; Status DC Info (Do NOT chart on this entry -- for MONITORING) 1 each PRN DAILY PRN MC SEE COMMENTS; Start 09/03/16 at 08:45; Stop 09/05/16 at 08:44; Status DC Info 1 each PRN DAILY PRN MC SEE COMMENTS Last administered on 09/06/16 12:54 ; Start 09/04/16 at 15:00 Midazolam HCl (Versed) 5 mg STK-MED ONCE .ROUTE ; Start 09/04/16 at 09:54; Stop 09/04/16 at 09:55; Status DC Fentanyl Citrate (Fentanyl 5ml Vial) 250 mcg STK-MED ONCE .ROUTE ; Start at 09:54; Stop 09/04/16 at 09:55; Status DC Lidocaine/Sodium Bicarbonate 20 ml 20 ml STK-MED ONCE IJ ; Start 09/04/16 at 09: 55; Stop 09/04/16 at 09:56; Status DC Meropenem 1 gm/ Sodium Chloride 100 ml @ 200 mls/hr Q8HRS IV Last administered on 09/06/16 05:46; Start 09/04/16 at 14:00 Fluconazole/ Sodium Chloride (Diflucan 400mg/ 200ml Premix) 200 ml @ 100 mls/ hr Q24H IV Last administered on 09/06/16 11:20; Start 09/04/16 at 11:00 Lidocaine/Sodium Bicarbonate (Buffered Lidocaine 1%) 3 ml 1X ONCE IJ Last administered on 09/04/16 10:49; Start 09/04/16 at 10:45; Stop 09/04/16 at 10:48 ; Status DC Midazolam HCl (Versed) 0.5 mg 1X ONCE IV Last administered on 09/04/16 10:50 ; Start 09/04/16 at 10:45; Stop 09/04/16 at 10:48; Status DC Fentanyl Citrate 100 mcg 100 mcg 1X ONCE IV Last administered on 09/04/16 10: 50; Start 09/04/16 at 10:45; Stop 09/04/16 at 10:48; Status DC Sodium Chloride 90 meq/Potassium Chloride 50 meq/ Potassium Phosphate 13.6 mmol/ Magnesium Sulfate 10 meq/ Calcium Gluconate 10 meq/ Multivitamins/ Minerals 10 ml/ Chromium/Copper/ Manganese/Seleni/ Zn 1 ml/Total Parenteral Nutrition/Amino Acids/Dextrose/ Fat Emulsion Intravenous 1,512 ml @ 63 mls/hr TPN CONT IV Last administered on 09/05/16 20:50; Start 09/05/16 at 22:00; Stop 09/06/16 at 21:59 Levofloxacin/ Dextrose 150 ml @ 100 mls/hr 1X ONCE IV Last administered on 09:00; Start 09/06/16 at 09:00; Stop 09/06/16 at 10:29; Status DC Sodium Chloride/ Potassium Chloride/ Potassium Phosphate/ Magnesium Sulfate/ Calcium Gluconate/ Multivitamins/ Minerals/Chromium/ Copper/Manganese/ Seleni/Zn /Total Parenteral Nutrition/Amino Acids/Dextrose/ Fat Emulsion Intravenous ( Sodium Chloride/ Potassium Phospha... 1,512 ml @ 63 mls/hr TPN CONT IV ; Start 09/06/16 at 22:00; Stop 09/07/16 at 21:59 Vitals/I & O Vital Sign - Last 24 Hours 09/05/16 09/05/16 09/05/16 09/05/16 14:39 19:00 21:48 23:00 Temp 99.5 100.4 99.3 99.4 99.5 100.4 99.3 99.4 Pulse 102 116 114 Resp 20 B/P 110/75 117/80 110/81 Pulse Ox 91 92 92 O2 Delivery Room Air Room Air Room Air 09/06/16 09/06/16 09/06/16 09/06/16 03:00 07:00 08:00 10:58 Temp 99.3 98.4 98.2 99.3 98.4 98.2 Pulse 99 103 112 Resp 18 20 B/P 110/73 118/76 121/81 Pulse Ox 92 96 97 O2 Delivery Room Air Room Air Room Air Room Air Intake and Output 09/05/16 09/05/16 09/06/16 15:00 23:00 07:00 Intake Total 0 ml 300 ml Output Total 300 ml 270 ml 400 ml Balance -300 ml -270 ml -100 ml MARKY CALDWELL MD Sep 06, 2016 13:22
--- NOTE | 2016-09-06 13:36 | PDOC ---
Subjective: Subjective: Better today. NG just removed. Pain is better, no n/v. Trying ice chips. Objective: Objective: Tmax 100.4 Vital Signs: Vital Signs Date Time Temp Pulse Resp B/P Pulse Ox O2 Delivery O2 Flow Rate FiO2 09/06/16 10:58 98.2 112 20 121/81 97 Room Air 98.2 09/05/16 10:23 0.5 Labs: Laboratory Tests Test 09/05/16 21:18 09/06/16 06:20 09/06/16 07:45 Glucose (Fingerstick) 117mg/dL 116mg/dL White Blood Count 20.9x10^3/uL Red Blood Count 4.37x10^6/uL Hemoglobin 12.8g/dL Hematocrit 40.8% Mean Corpuscular Volume 93fL Mean Corpuscular Hemoglobin 29pg Mean Corpuscular Hemoglobin Concent 31g/dL Red Cell Distribution Width 13.4% Platelet Count 304x10^3/uL Neutrophils (%) (Auto) 89% Lymphocytes (%) (Auto) 7% Monocytes (%) (Auto) 3% Eosinophils (%) (Auto) 0% Basophils (%) (Auto) 0% Neutrophils # (Auto) 18.6x10^3uL Lymphocytes # (Auto) 1.5x10^3/uL Monocytes # (Auto) 0.7x10^3/uL Eosinophils # (Auto) 0.1x10^3/uL Basophils # (Auto) 0.0x10^3/uL Sodium Level 134mmol/L Potassium Level 4.7mmol/L Chloride Level 100mmol/L Carbon Dioxide Level 25mmol/L Anion Gap 9 Blood Urea Nitrogen 10mg/dL Creatinine 0.6mg/dL Estimated GFR (Cockcroft-Gault) 173.6 Glucose Level 134mg/dL Calcium Level 8.2mg/dL Phosphorus Level 3.4mg/dL Magnesium Level 2.3mg/dL Triglycerides Level 107mg/dL PE: GEN: NAD, smiles a little LUNGS: CTAB HEART: tachycardic ABD: less tender BLQ, both drains w/ pus NEURO/PSYCH: A & O 3 A/P: Abdominal pain w/ pneumoperitoneum, abscesses -s/p drains by IR 09/04 -on IV antibiotics per ID -surgery following Leukocytosis - worse Fever, tachycardia - improved -- Again, looks better but worsening WBC. Follow surg recs. UMM RIVAS Sep 06, 2016 13:36 PETER ARAGON MD Sep 06, 2016 13:50
[2016-09-06 15:08] VITALS: BP 129/82
[2016-09-06 19:00] VITALS: BP 123/83
[2016-09-06] MEDS ORDERED: TOTAL PARENTERAL NUTRITION 1,424.9987 ML, AMINO ACIDS 10 % 60 GM, DEXTROSE 70 % IN WATE... IV SCH ×10 (22:00)
[2016-09-06 22:58] VITALS: BP 119/82
[2016-09-07 03:17] VITALS: BP 123/82
[2016-09-07] MEDS: MEROPENEM 1 GM in IV NORMAL SALINE 100ML 100 ML IV SCH ×3 (05:50→23:45)
[2016-09-07 07:00] VITALS: BP 131/87
--- NOTE | 2016-09-07 08:43 | PDOC ---
Infectious Disease Note Subjective Subjective Doing better. Some loose stool and burping. ROS ROS GEN: Denies fevers, chills, sweats HEENT: Denies blurred vision, sore throat CV: Denies chest pain RESP: Denies shortness of air, cough GI: Denies n/v/d NEURO: Denies confusion, dizziness MSK: Denies weakness, joint pain/swelling Vital Sign Vital Signs Vital Signs Date Time Temp Pulse Resp B/P Pulse Ox O2 Delivery O2 Flow Rate FiO2 09/07/16 07:00 98.5 110 18 131/87 96 Room Air 98.5 Physical Exam PHYSICAL EXAM GENERAL: NAD, Alert. Looks well HEENT: PERRL, OC/OP - clear NECK: Supple, no JVD, no LN LUNGS: Clear HEART: S1S2, no gallop, no murmur ABD: Soft, NT, no organomegaly, no rebound. Drains. Decreased BS EXT: No edema, no cyanosis SYSTEMS ANALYST ENGINEER: Alert, oriented x 3, no focal neurologic deficit SKIN: No rash IV: PICC - RUE Labs Lab Laboratory Tests Test 09/06/16 16:49 09/07/16 00:10 Glucose (Fingerstick) 130mg/dL (70-99) 113mg/dL (70-99) Objective Assessment Diverticulitis Perf viscous -on Zosyn initially but changed to Meropenem 09/04 Abd abscess - s/ p [address] 09/04 - Ecoli/second GNR pending and GPC Leukocytosis - currently pending- clinically looks better Plan Plan of Care Labs not drawn yet. Contacted lab this am just after 7 and was informed they were in process. Called later and was informed tube was not available. Apparently had 2 attempts at venapuncture that were unsuccessful. D/w day nurse Zara and informed her that he has a PICC line and labs should have been drawn via PICC by nightshift. She will obtain CBC if WBC elevated will add Vanc given GPC on cult. but currently he looks well Cont Meropenem/Fluconazole Dose Levoflox times one 09/06 F/u labs and cults D/w brother MIRIAM ORTEZ MD Sep 07, 2016 08:43
--- NOTE | 2016-09-07 09:22 | PDOC ---
Subjective: Subjective: Feeling okay. Denies pain, flatus, n/v. Has had some ice chips. Objective: Objective: No labs yet. Vital Signs: Vital Signs Date Time Temp Pulse Resp B/P Pulse Ox O2 Delivery O2 Flow Rate FiO2 09/07/16 07:00 98.5 110 18 131/87 96 Room Air 98.5 Labs: Laboratory Tests Test 09/06/16 16:49 09/07/16 00:10 Glucose (Fingerstick) 130mg/dL (70-99) 113mg/dL (70-99) PE: GEN: NAD LUNGS: CTAB anteriorly HEART: RRR ABD: drains (left w/ minimal drainage), non-tender, BS+ NEURO/PSYCH: A & O 3 A/P: Abdominal pain w/ pneumoperitoneum, abscesses -s/p drains by IR 09/04 -on IV antibiotics per ID -surgery following Leukocytosis Fever, tachycardia - resolved -- Looking better. Await labs. UMM RIVAS Sep 07, 2016 09:22
[2016-09-07 09:33] LABS: BASO % 0 % (0-3); EOS % 0 % (0-3); HEMATOCRIT 38.3 % (39.0-53.0); HEMOGLOBIN 12.7 g/dL (13.0-17.5); LYMPH # 1.2 x10^3/uL (1.0-4.8); LYMPH % 5 % (24-48); MEAN CORPUSCULAR HEMOGLOBIN 29 pg (25-35); MEAN CORPUSCULAR HGB CONC 33 g/dL (31-37); MEAN CORPUSCULAR VOLUME 89 fL (79-100); MONO % 3 % (0-9); NEUT % 91 % (31-73); PLATELET COUNT 357 x10^3/uL (140-400); RED BLOOD COUNT 4.34 x10^6/uL (4.30-5.70); RED CELL DISTRIBUTION WIDTH 12.8 % (11.5-14.5); WHITE BLOOD COUNT 23.3 x10^3/uL (4.0-11.0)
[2016-09-07 09:48] LABS: CALCIUM 8.5 mg/dL (8.5-10.1); CREATININE 0.5 mg/dL (0.7-1.3); GFR 214.2; MAGNESIUM 2.3 mg/dL (1.8-2.4); PHOSPHORUS 3.5 mg/dL (2.6-4.7); POTASSIUM 4.7 mmol/L (3.5-5.1)
[2016-09-07] MEDS ORDERED: ALTEPLASE 2 MG VIAL INT CAT ONE (10:00)
[2016-09-07] MEDS ORDERED: GENTAMICIN PER PHARMACY. MC PRN (10:15)
[2016-09-07] MEDS: FLUCONAZOLE 400MG/200ML PREMIX 200 ML IV SCH (10:47)
[2016-09-07 10:55] VITALS: BP 118/83
[2016-09-07] MEDS ORDERED: GENTAMICIN SULFATE 500 MG in IV NORMAL SALINE 100ML 100 ML IV ONE (11:00)
[2016-09-07] MEDS ORDERED: VANCOMYCIN 2 GM in IV NORMAL SALINE 500ML BAG 500 ML IV ONE (11:00)
--- NOTE | 2016-09-07 12:07 | PDOC ---
PROGRESS NOTES Chief Complaint Chief Complaint Acute abd pain 2/2 abd abscess s/p bl [place] drainage on 09/04 perforated bowls, 2/2 inflammatory bowel disease likely abd abcess sepsis malnuitrition, not POA on [employer] for abdomnial pain cont NPO plan: 1. fu with id, ir, sx, gi 2. IR abscess drainage on 09/04 3. abx changed to meropenum and flagyl as per ID on 09/04, levaquin 09/05 x1, vanco 09/07 x1 cont [employer] for pain control dvt ppx TPN NPO, NGT dced as per sx. may need repeat ABD ct tmr if cont fever and higher WBC, fu cx History of Present Illness History of Present Illness prior pain 11/27 w/ [employer]ATIVE [employer], he looks more calm STILL fever overnight, higher WBC dry mouth, hungry NGT removed IR for abscess drain 09/04 Vitals Vitals Vital Signs Date Time Temp Pulse Resp B/P Pulse Ox O2 Delivery O2 Flow Rate FiO2 09/07/16 10:55 98.4 109 18 118/83 97 Room Air 98.4 Physical Exam General: Alert, Oriented X3, No acute distress Heart: Regular rate, No murmurs Lungs: Clear Abdomen: Soft, Other (mildly TTP without localization) Extremities: No clubbing, No cyanosis, No edema, Normal pulses Skin: No rashes, No breakdown Labs LABS Laboratory Tests Test 09/06/16 16:49 09/07/16 00:10 09/07/16 05:04 09/07/16 08:45 Glucose (Fingerstick) 130mg/dL (70-99) 113mg/dL (70-99) 127mg/dL (70-99) White Blood Count 23.3x10^3/uL (4.0-11.0) Red Blood Count 4.34x10^6/uL (4.30-5.70) Hemoglobin 12.7g/dL (13.0-17.5) Hematocrit 38.3% (39.0-53.0) Mean Corpuscular Volume 89fL (79-100) Mean Corpuscular Hemoglobin 29pg (25-35) Mean Corpuscular Hemoglobin Concent 33g/dL (31-37) Red Cell Distribution Width 12.8% (11.5-14.5) Platelet Count 357x10^3/uL (140-400) Neutrophils (%) (Auto) 91% (31-73) Lymphocytes (%) (Auto) 5% (24-48) Monocytes (%) (Auto) 3% (0-9) Eosinophils (%) (Auto) 0% (0-3) Basophils (%) (Auto) 0% (0-3) Neutrophils # (Auto) 21.2x10^3uL (1.8-7.7) Lymphocytes # (Auto) 1.2x10^3/uL (1.0-4.8) Monocytes # (Auto) 0.8x10^3/uL (0.0-1.1) Eosinophils # (Auto) 0.0x10^3/uL (0.0-0.7) Basophils # (Auto) 0.0x10^3/uL (0.0-0.2) Sodium Level 135mmol/L (136-145) Potassium Level 4.7mmol/L (3.5-5.1) Chloride Level 101mmol/L (98-107) Carbon Dioxide Level 25mmol/L (21-32) Anion Gap 9 (6-14) Blood Urea Nitrogen 10mg/dL (8-26) Creatinine 0.5mg/dL (0.7-1.3) Estimated GFR (Cockcroft-Gault) 214.2 Glucose Level 124mg/dL (70-99) Calcium Level 8.5mg/dL (8.5-10.1) Phosphorus Level 3.5mg/dL (2.6-4.7) Magnesium Level 2.3mg/dL (1.8-2.4) Test 09/07/16 11:17 Glucose (Fingerstick) 142mg/dL (70-99) Review of Systems Review of Systems no chills, sob or chest pain Assessment and Plan Assessmemt and Plan Problems Medical Problems: (1) Abdominal pain Status: Acute (2) Pneumoperitoneum Status: Acute Problems: Comment Review of Relevant I have reviewed the following items crystal (where applicable) has been applied. Labs Laboratory Tests Test 09/05/16 21:18 09/06/16 06:20 09/06/16 07:45 09/06/16 16:49 Glucose (Fingerstick) 117mg/dL (70-99) 116mg/dL (70-99) 130mg/dL (70-99) White Blood Count 20.9x10^3/uL (4.0-11.0) Red Blood Count 4.37x10^6/uL (4.30-5.70) Hemoglobin 12.8g/dL (13.0-17.5) Hematocrit 40.8% (39.0-53.0) Mean Corpuscular Volume 93fL (79-100) Mean Corpuscular Hemoglobin 29pg (25-35) Mean Corpuscular Hemoglobin Concent 31g/dL (31-37) Red Cell Distribution Width 13.4% (11.5-14.5) Platelet Count 304x10^3/uL (140-400) Neutrophils (%) (Auto) 89% (31-73) Lymphocytes (%) (Auto) 7% (24-48) Monocytes (%) (Auto) 3% (0-9) Eosinophils (%) (Auto) 0% (0-3) Basophils (%) (Auto) 0% (0-3) Neutrophils # (Auto) 18.6x10^3uL (1.8-7.7) Lymphocytes # (Auto) 1.5x10^3/uL (1.0-4.8) Monocytes # (Auto) 0.7x10^3/uL (0.0-1.1) Eosinophils # (Auto) 0.1x10^3/uL (0.0-0.7) Basophils # (Auto) 0.0x10^3/uL (0.0-0.2) Sodium Level 134mmol/L (136-145) Potassium Level 4.7mmol/L (3.5-5.1) Chloride Level 100mmol/L (98-107) Carbon Dioxide Level 25mmol/L (21-32) Anion Gap 9 (6-14) Blood Urea Nitrogen 10mg/dL (8-26) Creatinine 0.6mg/dL (0.7-1.3) Estimated GFR (Cockcroft-Gault) 173.6 Glucose Level 134mg/dL (70-99) Calcium Level 8.2mg/dL (8.5-10.1) Phosphorus Level 3.4mg/dL (2.6-4.7) Magnesium Level 2.3mg/dL (1.8-2.4) Triglycerides Level 107mg/dL (0-150) Test 09/07/16 00:10 09/07/16 05:04 09/07/16 08:45 09/07/16 11:17 Glucose (Fingerstick) 113mg/dL (70-99) 127mg/dL (70-99) 142mg/dL (70-99) White Blood Count 23.3x10^3/uL (4.0-11.0) Red Blood Count 4.34x10^6/uL (4.30-5.70) Hemoglobin 12.7g/dL (13.0-17.5) Hematocrit 38.3% (39.0-53.0) Mean Corpuscular Volume 89fL (79-100) Mean Corpuscular Hemoglobin 29pg (25-35) Mean Corpuscular Hemoglobin Concent 33g/dL (31-37) Red Cell Distribution Width 12.8% (11.5-14.5) Platelet Count 357x10^3/uL (140-400) Neutrophils (%) (Auto) 91% (31-73) Lymphocytes (%) (Auto) 5% (24-48) Monocytes (%) (Auto) 3% (0-9) Eosinophils (%) (Auto) 0% (0-3) Basophils (%) (Auto) 0% (0-3) Neutrophils # (Auto) 21.2x10^3uL (1.8-7.7) Lymphocytes # (Auto) 1.2x10^3/uL (1.0-4.8) Monocytes # (Auto) 0.8x10^3/uL (0.0-1.1) Eosinophils # (Auto) 0.0x10^3/uL (0.0-0.7) Basophils # (Auto) 0.0x10^3/uL (0.0-0.2) Sodium Level 135mmol/L (136-145) Potassium Level 4.7mmol/L (3.5-5.1) Chloride Level 101mmol/L (98-107) Carbon Dioxide Level 25mmol/L (21-32) Anion Gap 9 (6-14) Blood Urea Nitrogen 10mg/dL (8-26) Creatinine 0.5mg/dL (0.7-1.3) Estimated GFR (Cockcroft-Gault) 214.2 Glucose Level 124mg/dL (70-99) Calcium Level 8.5mg/dL (8.5-10.1) Phosphorus Level 3.5mg/dL (2.6-4.7) Magnesium Level 2.3mg/dL (1.8-2.4) Laboratory Tests Test 09/06/16 16:49 09/07/16 00:10 09/07/16 05:04 09/07/16 08:45 Glucose (Fingerstick) 130mg/dL (70-99) 113mg/dL (70-99) 127mg/dL (70-99) White Blood Count 23.3x10^3/uL (4.0-11.0) Red Blood Count 4.34x10^6/uL (4.30-5.70) Hemoglobin 12.7g/dL (13.0-17.5) Hematocrit 38.3% (39.0-53.0) Mean Corpuscular Volume 89fL (79-100) Mean Corpuscular Hemoglobin 29pg (25-35) Mean Corpuscular Hemoglobin Concent 33g/dL (31-37) Red Cell Distribution Width 12.8% (11.5-14.5) Platelet Count 357x10^3/uL (140-400) Neutrophils (%) (Auto) 91% (31-73) Lymphocytes (%) (Auto) 5% (24-48) Monocytes (%) (Auto) 3% (0-9) Eosinophils (%) (Auto) 0% (0-3) Basophils (%) (Auto) 0% (0-3) Neutrophils # (Auto) 21.2x10^3uL (1.8-7.7) Lymphocytes # (Auto) 1.2x10^3/uL (1.0-4.8) Monocytes # (Auto) 0.8x10^3/uL (0.0-1.1) Eosinophils # (Auto) 0.0x10^3/uL (0.0-0.7) Basophils # (Auto) 0.0x10^3/uL (0.0-0.2) Sodium Level 135mmol/L (136-145) Potassium Level 4.7mmol/L (3.5-5.1) Chloride Level 101mmol/L (98-107) Carbon Dioxide Level 25mmol/L (21-32) Anion Gap 9 (6-14) Blood Urea Nitrogen 10mg/dL (8-26) Creatinine 0.5mg/dL (0.7-1.3) Estimated GFR (Cockcroft-Gault) 214.2 Glucose Level 124mg/dL (70-99) Calcium Level 8.5mg/dL (8.5-10.1) Phosphorus Level 3.5mg/dL (2.6-4.7) Magnesium Level 2.3mg/dL (1.8-2.4) Test 09/07/16 11:17 Glucose (Fingerstick) 142mg/dL (70-99) Microbiology 08/30/16 Blood Culture - Final, Complete NO GROWTH AFTER 5 DAYS 08/30/16 Urine Culture - Final, Complete 08/30/16 Urine Culture Result 1 (TOAN) - Final, Complete 09/04/16 Gram Stain - Final, Complete Medications Current Medications Sodium Chloride (Iv Sodium Chloride 0.9% 1000ml Bag) 1,000 ml @ 1,000 mls/hr Q1H IV Last administered on 08/30/16 19:58; Start 08/30/16 at 19:45; Stop 07/06 at 20:44; Status DC Morphine Sulfate 4 mg 1X ONCE IV Last administered on 08/30/16 19:58; Start 08/30/16 at 19:45; Stop 08/30/16 at 19:46; Status DC Ondansetron HCl (Zofran) 4 mg 1X ONCE IV Last administered on 08/30/16 19:57 ; Start 08/30/16 at 19:45; Stop 08/30/16 at 19:46; Status DC Iohexol (Omnipaque 300 Mg/ml) 75 ml 1X ONCE IV Last administered on 08/30/16 20:57; Start 08/30/16 at 20:00; Stop 08/30/16 at 20:01; Status DC Morphine Sulfate 4 mg 1X ONCE IV Last administered on 08/30/16 22:22; Start 08/30/16 at 21:45; Stop 08/30/16 at 21:46; Status DC Piperacillin Sod/ Tazobactam Sod 1 each 1 each PRN DAILY PRN MC SEE COMMENTS; Start 08/30/16 at 21:45; Stop 09/02/16 at 13:43; Status DC Piperacillin Sod/ Tazobactam Sod/ Sodium Chloride (Zosyn/Iv Sodium Chloride 0.9 % 50ml) 50 ml @ 100 mls/hr Q6HRS IV Last administered on 09/04/16 05:07; Start 08/30/16 at 22:00; Stop 09/04/16 at 10:30; Status DC Ondansetron HCl (Zofran) 4 mg PRN Q8HRS PRN IV NAUSEA/VOMITING; Start 08/30/16 at 22:30; Stop 08/31/16 at 22:29; Status DC Morphine Sulfate 4 mg 4 mg PRN Q2HR PRN IV PAIN Last administered on 08/30/16 23:16; Start 08/30/16 at 22:30; Stop 08/31/16 at 22:29; Status DC Sodium Chloride (Iv Sodium Chloride 0.9% 1000ml Bag) 1,000 ml @ 125 mls/hr Q8H IV Last administered on 08/31/16 09:13; Start 08/30/16 at 22:30; Stop at 13:05; Status DC Acetaminophen 650 mg 650 mg PRN Q4HRS PRN PO FEVER Last administered on 23:15; Start 08/30/16 at 22:30; Stop 08/31/16 at 22:29; Status DC Hydromorphone HCl 30 ml @ 0 mls/hr CONT PRN PRN IV PROTOCOL Last administered on 09/05/16 09:02; Start 08/30/16 at 23:30 Potassium Chloride/Dextrose/ Sod Cl 1,000 ml @ 100 mls/hr Q10H IV Last administered on 09/01/16 03:52; Start 08/31/16 at 13:15; Stop 09/01/16 at 14:37 ; Status DC Sodium Chloride 1,000 ml @ 1,000 mls/hr 1X ONCE IV Last administered on 14:24; Start 08/31/16 at 13:15; Stop 08/31/16 at 14:14; Status DC Albumin Human (Plasmanate) 500 ml @ 125 mls/hr 1X ONCE IV Last administered on 08/31/16 17:21; Start 08/31/16 at 17:00; Stop 08/31/16 at 20:59; Status DC Ondansetron HCl 4 mg 4 mg PRN Q6HRS PRN IV NAUSEA/VOMITING; Start 08/31/16 at 22:45 Amino Acids/ Glycerin/ Electrolytes (Procalamine) 1,000 ml @ 100 mls/hr Q10H IV Last administered on 09/05/16 10:00; Start 09/01/16 at 14:45; Stop at 21:59; Status DC Acetaminophen (Tylenol) 650 mg PRN Q4HRS PRN ID MILD PAIN / TEMP Last administered on 09/03/16 20:39; Start 09/01/16 at 20:30 Lorazepam (Ativan) 1 mg PRN Q4HRS PRN IV ANXIETY / AGITATION Last administered on 09/03/16 17:57; Start 09/02/16 at 10:30 Saliva Substitute (Biotene Moisturizing Mouth) 2 spray PRN Q15MIN PRN PO DRY MOUTH Last administered on 09/02/16 18:13; Start 09/02/16 at 10:30 Iohexol (Omnipaque 240 Mg/ml) 30 ml 1X ONCE PO Last administered on 09/03/16 10:18; Start 09/03/16 at 09:00; Stop 09/03/16 at 09:01; Status DC Iohexol (Omnipaque 300 Mg/ml) 75 ml 1X ONCE IV Last administered on 09/03/16 10:18; Start 09/03/16 at 09:00; Stop 09/03/16 at 09:01; Status DC Info (Do NOT chart on this entry -- for MONITORING) 1 each PRN DAILY PRN MC SEE COMMENTS; Start 09/03/16 at 08:45; Stop 09/05/16 at 08:44; Status DC Info 1 each PRN DAILY PRN MC SEE COMMENTS Last administered on 09/06/16 12:54 ; Start 09/04/16 at 15:00 Midazolam HCl (Versed) 5 mg STK-MED ONCE .ROUTE ; Start 09/04/16 at 09:54; Stop 09/04/16 at 09:55; Status DC Fentanyl Citrate (Fentanyl 5ml Vial) 250 mcg STK-MED ONCE .ROUTE ; Start at 09:54; Stop 09/04/16 at 09:55; Status DC Lidocaine/Sodium Bicarbonate 20 ml 20 ml STK-MED ONCE IJ ; Start 09/04/16 at 09: 55; Stop 09/04/16 at 09:56; Status DC Meropenem 1 gm/ Sodium Chloride 100 ml @ 200 mls/hr Q8HRS IV Last administered on 09/07/16 05:50; Start 09/04/16 at 14:00 Fluconazole/ Sodium Chloride (Diflucan 400mg/ 200ml Premix) 200 ml @ 100 mls/ hr Q24H IV Last administered on 09/07/16 10:47; Start 09/04/16 at 11:00 Lidocaine/Sodium Bicarbonate (Buffered Lidocaine 1%) 3 ml 1X ONCE IJ Last administered on 09/04/16 10:49; Start 09/04/16 at 10:45; Stop 09/04/16 at 10:48 ; Status DC Midazolam HCl (Versed) 0.5 mg 1X ONCE IV Last administered on 09/04/16 10:50 ; Start 09/04/16 at 10:45; Stop 09/04/16 at 10:48; Status DC Fentanyl Citrate 100 mcg 100 mcg 1X ONCE IV Last administered on 09/04/16 10: 50; Start 09/04/16 at 10:45; Stop 09/04/16 at 10:48; Status DC Sodium Chloride 90 meq/Potassium Chloride 50 meq/ Potassium Phosphate 13.6 mmol/ Magnesium Sulfate 10 meq/ Calcium Gluconate 10 meq/ Multivitamins/ Minerals 10 ml/ Chromium/Copper/ Manganese/Seleni/ Zn 1 ml/Total Parenteral Nutrition/Amino Acids/Dextrose/ Fat Emulsion Intravenous 1,512 ml @ 63 mls/hr TPN CONT IV Last administered on 09/05/16 20:50; Start 09/05/16 at 22:00; Stop 09/06/16 at 21:59; Status DC Levofloxacin/ Dextrose 150 ml @ 100 mls/hr 1X ONCE IV Last administered on 09:00; Start 09/06/16 at 09:00; Stop 09/06/16 at 10:29; Status DC Sodium Chloride/ Potassium Chloride/ Potassium Phosphate/ Magnesium Sulfate/ Calcium Gluconate/ Multivitamins/ Minerals/Chromium/ Copper/Manganese/ Seleni/Zn /Total Parenteral Nutrition/Amino Acids/Dextrose/ Fat Emulsion Intravenous ( Sodium Chloride/ Potassium Phospha... 1,512 ml @ 63 mls/hr TPN CONT IV Last administered on 09/06/16t 21:49; Start 09/06/16 at 22:00; Stop 09/07/16 at 21:59 Alteplase, Recombinant (Cathflo) 2 mg 1X ONCE INT CAT ; Start 09/07/16 at 10:00 ; Stop 09/07/16 at 10:01; Status DC Vancomycin HCl (Vanco Per Pharmacy) 1 each PRN DAILY PRN MC SEE COMMENTS; Start 09/07/16 at 10:30 Gentamicin Sulfate 1 each 1 each PRN DAILY PRN MC SEE COMMENTS; Start 09/07/16 at 10:15; Stop 09/07/16 at 13:00 Vancomycin HCl 2 gm/Sodium Chloride 500 ml @ 250 mls/hr 1X ONCE IV ; Start at 11:00; Stop 09/07/16 at 12:59 Gentamicin Sulfate/Sodium Chloride (Iv Sodium Chloride 0.9% 100ml) 112.5 ml @ 112.5 mls/ hr 1X ONCE IV ; Start 09/07/16 at 11:00; Stop 09/07/16 at 11:59; Status DC Vitals/I & O Vital Sign - Last 24 Hours 09/06/16 09/06/16 09/06/16 09/06/16 15:08 19:00 20:00 22:58 Temp 100.4 100.1 99.9 100.4 100.1 99.9 Pulse 116 113 104 Resp B/P 129/82 123/83 119/82 Pulse Ox 97 97 96 O2 Delivery Room Air Room Air Room Air Room Air 09/07/16 09/07/16 09/07/16 09/07/16 03:17 07:00 08:00 10:55 Temp 98.7 98.5 98.4 98.7 98.5 98.4 Pulse 98 110 109 Resp 18 B/P 123/82 131/87 118/83 Pulse Ox 96 96 97 O2 Delivery Room Air Room Air Room Air Room Air Intake and Output 09/06/16 09/06/16 09/07/16 15:00 23:00 07:00 Intake Total 525 ml 0 ml 415 ml Output Total 300 ml 110 ml 580 ml Balance 225 ml -110 ml -165 ml MARKY CALDWELL MD Sep 07, 2016 12:07
[2016-09-07] MEDS: TPN PER PHARMACY MC PRN (13:22)
--- NOTE | 2016-09-07 13:44 | PDOC ---
SURGICAL PROGRESS NOTE Subjective pain is better no emesis no flatus Vital Signs Vital Signs Date Time Temp Pulse Resp B/P Pulse Ox O2 Delivery O2 Flow Rate FiO2 09/07/16 10:55 98.4 109 18 118/83 97 Room Air 98.4 I&O Intake and Output 09/07/16 07:00 Intake Total 940 ml Output Total 990 ml Balance -50 ml Intake Oral 0 ml IV Total 525 ml Other 415 ml Output Urine Total 800 ml Gastric Drainage Total 50 ml Drainage Total 140 ml # Voids 1 General: Alert, Oriented X3, Cooperative, No acute distress Abdomen: Soft, Other (tender RLQ, drain area, RLQ drain serous, LLQ drain purulent ) Labs Laboratory Tests Test 09/05/16 21:18 09/06/16 06:20 09/06/16 07:45 09/06/16 16:49 Glucose (Fingerstick) 117mg/dL (70-99) 116mg/dL (70-99) 130mg/dL (70-99) White Blood Count 20.9x10^3/uL (4.0-11.0) Red Blood Count 4.37x10^6/uL (4.30-5.70) Hemoglobin 12.8g/dL (13.0-17.5) Hematocrit 40.8% (39.0-53.0) Mean Corpuscular Volume 93fL (79-100) Mean Corpuscular Hemoglobin 29pg (25-35) Mean Corpuscular Hemoglobin Concent 31g/dL (31-37) Red Cell Distribution Width 13.4% (11.5-14.5) Platelet Count 304x10^3/uL (140-400) Neutrophils (%) (Auto) 89% (31-73) Lymphocytes (%) (Auto) 7% (24-48) Monocytes (%) (Auto) 3% (0-9) Eosinophils (%) (Auto) 0% (0-3) Basophils (%) (Auto) 0% (0-3) Neutrophils # (Auto) 18.6x10^3uL (1.8-7.7) Lymphocytes # (Auto) 1.5x10^3/uL (1.0-4.8) Monocytes # (Auto) 0.7x10^3/uL (0.0-1.1) Eosinophils # (Auto) 0.1x10^3/uL (0.0-0.7) Basophils # (Auto) 0.0x10^3/uL (0.0-0.2) Sodium Level 134mmol/L (136-145) Potassium Level 4.7mmol/L (3.5-5.1) Chloride Level 100mmol/L (98-107) Carbon Dioxide Level 25mmol/L (21-32) Anion Gap 9 (6-14) Blood Urea Nitrogen 10mg/dL (8-26) Creatinine 0.6mg/dL (0.7-1.3) Estimated GFR (Cockcroft-Gault) 173.6 Glucose Level 134mg/dL (70-99) Calcium Level 8.2mg/dL (8.5-10.1) Phosphorus Level 3.4mg/dL (2.6-4.7) Magnesium Level 2.3mg/dL (1.8-2.4) Triglycerides Level 107mg/dL (0-150) Test 09/07/16 00:10 09/07/16 05:04 09/07/16 08:45 09/07/16 11:17 Glucose (Fingerstick) 113mg/dL (70-99) 127mg/dL (70-99) 142mg/dL (70-99) White Blood Count 23.3x10^3/uL (4.0-11.0) Red Blood Count 4.34x10^6/uL (4.30-5.70) Hemoglobin 12.7g/dL (13.0-17.5) Hematocrit 38.3% (39.0-53.0) Mean Corpuscular Volume 89fL (79-100) Mean Corpuscular Hemoglobin 29pg (25-35) Mean Corpuscular Hemoglobin Concent 33g/dL (31-37) Red Cell Distribution Width 12.8% (11.5-14.5) Platelet Count 357x10^3/uL (140-400) Neutrophils (%) (Auto) 91% (31-73) Lymphocytes (%) (Auto) 5% (24-48) Monocytes (%) (Auto) 3% (0-9) Eosinophils (%) (Auto) 0% (0-3) Basophils (%) (Auto) 0% (0-3) Neutrophils # (Auto) 21.2x10^3uL (1.8-7.7) Lymphocytes # (Auto) 1.2x10^3/uL (1.0-4.8) Monocytes # (Auto) 0.8x10^3/uL (0.0-1.1) Eosinophils # (Auto) 0.0x10^3/uL (0.0-0.7) Basophils # (Auto) 0.0x10^3/uL (0.0-0.2) Sodium Level 135mmol/L (136-145) Potassium Level 4.7mmol/L (3.5-5.1) Chloride Level 101mmol/L (98-107) Carbon Dioxide Level 25mmol/L (21-32) Anion Gap 9 (6-14) Blood Urea Nitrogen 10mg/dL (8-26) Creatinine 0.5mg/dL (0.7-1.3) Estimated GFR (Cockcroft-Gault) 214.2 Glucose Level 124mg/dL (70-99) Calcium Level 8.5mg/dL (8.5-10.1) Phosphorus Level 3.5mg/dL (2.6-4.7) Magnesium Level 2.3mg/dL (1.8-2.4) Laboratory Tests Test 09/06/16 16:49 09/07/16 00:10 09/07/16 05:04 09/07/16 08:45 Glucose (Fingerstick) 130mg/dL (70-99) 113mg/dL (70-99) 127mg/dL (70-99) White Blood Count 23.3x10^3/uL (4.0-11.0) Red Blood Count 4.34x10^6/uL (4.30-5.70) Hemoglobin 12.7g/dL (13.0-17.5) Hematocrit 38.3% (39.0-53.0) Mean Corpuscular Volume 89fL (79-100) Mean Corpuscular Hemoglobin 29pg (25-35) Mean Corpuscular Hemoglobin Concent 33g/dL (31-37) Red Cell Distribution Width 12.8% (11.5-14.5) Platelet Count 357x10^3/uL (140-400) Neutrophils (%) (Auto) 91% (31-73) Lymphocytes (%) (Auto) 5% (24-48) Monocytes (%) (Auto) 3% (0-9) Eosinophils (%) (Auto) 0% (0-3) Basophils (%) (Auto) 0% (0-3) Neutrophils # (Auto) 21.2x10^3uL (1.8-7.7) Lymphocytes # (Auto) 1.2x10^3/uL (1.0-4.8) Monocytes # (Auto) 0.8x10^3/uL (0.0-1.1) Eosinophils # (Auto) 0.0x10^3/uL (0.0-0.7) Basophils # (Auto) 0.0x10^3/uL (0.0-0.2) Sodium Level 135mmol/L (136-145) Potassium Level 4.7mmol/L (3.5-5.1) Chloride Level 101mmol/L (98-107) Carbon Dioxide Level 25mmol/L (21-32) Anion Gap 9 (6-14) Blood Urea Nitrogen 10mg/dL (8-26) Creatinine 0.5mg/dL (0.7-1.3) Estimated GFR (Cockcroft-Gault) 214.2 Glucose Level 124mg/dL (70-99) Calcium Level 8.5mg/dL (8.5-10.1) Phosphorus Level 3.5mg/dL (2.6-4.7) Magnesium Level 2.3mg/dL (1.8-2.4) Test 09/07/16 11:17 Glucose (Fingerstick) 142mg/dL (70-99) Problem List Problems Medical Problems: (1) Abdominal pain Status: Acute (2) Pneumoperitoneum Status: Acute Assessment/Plan low grade fevers, wbc up to [address] if fevers and white count continue to rise 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
[2016-09-07 15:00] VITALS: BP 119/78
--- NOTE | 2016-09-07 15:10 | RAD ---
Indication follow-up ileus. Supine and upright films of the abdomen were obtained. No prior plain film imaging of the abdomen is available. Note is made of a CT examination 4 days earlier. The stomach is distended. There are dilated loops of small bowel with scattered air-fluid levels on the upright film. Some gas is seen in the left colon. Pigtail catheters are noted in the pelvis. The plain film appearance is most consistent with at least a component of partial small bowel obstruction. There is no free air. The visualized lung bases appear clear IMPRESSION: Plain films of the abdomen most compatible with at least partial mechanical small bowel obstruction
[2016-09-07] MEDS: VANCOMYCIN PER PHARMACY MC PRN (15:45)
[2016-09-07 19:00] VITALS: BP 120/79
[2016-09-07] MEDS: VANCOMYCIN 1.25 GM in IV NORMAL SALINE 250ML 250 ML IV SCH (21:41)
[2016-09-07] MEDS ORDERED: TOTAL PARENTERAL NUTRITION 1,424.9987 ML, AMINO ACIDS 10 % 60 GM, DEXTROSE 70 % IN WATE... IV SCH ×10 (22:00)
[2016-09-07 23:21] VITALS: BP 125/79
[2016-09-08 02:32] VITALS: BP 119/80
[2016-09-08 04:05] LABS: BASO % 0 % (0-3); EOS % 0 % (0-3); HEMATOCRIT 35.3 % (39.0-53.0); HEMOGLOBIN 11.4 g/dL (13.0-17.5); LYMPH # 1.5 x10^3/uL (1.0-4.8); LYMPH % 8 % (24-48); MEAN CORPUSCULAR HEMOGLOBIN 29 pg (25-35); MEAN CORPUSCULAR HGB CONC 32 g/dL (31-37); MEAN CORPUSCULAR VOLUME 90 fL (79-100); MONO % 5 % (0-9); NEUT % 87 % (31-73); PLATELET COUNT 362 x10^3/uL (140-400); RED BLOOD COUNT 3.91 x10^6/uL (4.30-5.70); WHITE BLOOD COUNT 19.6 x10^3/uL (4.0-11.0)
[2016-09-08 04:15] LABS: CALCIUM 8.4 mg/dL (8.5-10.1); CREATININE 0.5 mg/dL (0.7-1.3); GFR 214.2; POTASSIUM 4.2 mmol/L (3.5-5.1)
[2016-09-08 04:19] LABS: MAGNESIUM 2.1 mg/dL (1.8-2.4); PHOSPHORUS 3.7 mg/dL (2.6-4.7)
[2016-09-08] MEDS: HYDROMORPHONE STANDARD PCA 30 ML IV PRN (04:45)
[2016-09-08] MEDS: MEROPENEM 1 GM in IV NORMAL SALINE 100ML 100 ML IV SCH ×3 (04:57→22:23)
[2016-09-08] MEDS: VANCOMYCIN 1.25 GM in IV NORMAL SALINE 250ML 250 ML IV SCH ×3 (05:39→16:06)
[2016-09-08 07:00] VITALS: BP 128/83
--- NOTE | 2016-09-08 08:12 | PDOC ---
Infectious Disease Note Subjective Subjective Doing better. Some loose stool and burping Vomit times one ROS ROS GEN: Denies fevers, chills, sweats HEENT: Denies blurred vision, sore throat CV: Denies chest pain RESP: Denies shortness of air, cough GI: Denies n/v/d NEURO: Denies confusion, dizziness MSK: Denies weakness, joint pain/swelling Vital Sign Vital Signs Vital Signs Date Time Temp Pulse Resp B/P Pulse Ox O2 Delivery O2 Flow Rate FiO2 09/08/16 07:00 99.3 101 16 128/83 99 Room Air 99.3 Physical Exam PHYSICAL EXAM GENERAL: NAD, Alert, looks ok HEENT: PERRL, OC/OP- clear NECK: Supple, no JVD, no LN LUNGS: Clear HEART: S1S2, no gallop, no murmur ABD: Soft, NT, no organomegaly, no rebound, Obese and some distension. 2 drains with some purulent material EXT: No edema, no cyanosis SUPERVISOR CUTTING DEPARTMENT: Alert, oriented x 3, no focal neurologic deficit SKIN: No rash IV: PICC - clean Labs Lab Laboratory Tests Test 09/07/16 08:45 09/07/16 11:17 09/07/16 16:47 09/07/16 23:15 White Blood Count 23.3x10^3/uL (4.0-11.0) Red Blood Count 4.34x10^6/uL (4.30-5.70) Hemoglobin 12.7g/dL (13.0-17.5) Hematocrit 38.3% (39.0-53.0) Mean Corpuscular Volume 89fL (79-100) Mean Corpuscular Hemoglobin 29pg (25-35) Mean Corpuscular Hemoglobin Concent 33g/dL (31-37) Red Cell Distribution Width 12.8% (11.5-14.5) Platelet Count 357x10^3/uL (140-400) Neutrophils (%) (Auto) 91% (31-73) Lymphocytes (%) (Auto) 5% (24-48) Monocytes (%) (Auto) 3% (0-9) Eosinophils (%) (Auto) 0% (0-3) Basophils (%) (Auto) 0% (0-3) Neutrophils # (Auto) 21.2x10^3uL (1.8-7.7) Lymphocytes # (Auto) 1.2x10^3/uL (1.0-4.8) Monocytes # (Auto) 0.8x10^3/uL (0.0-1.1) Eosinophils # (Auto) 0.0x10^3/uL (0.0-0.7) Basophils # (Auto) 0.0x10^3/uL (0.0-0.2) Sodium Level 135mmol/L (136-145) Potassium Level 4.7mmol/L (3.5-5.1) Chloride Level 101mmol/L (98-107) Carbon Dioxide Level 25mmol/L (21-32) Anion Gap 9 (6-14) Blood Urea Nitrogen 10mg/dL (8-26) Creatinine 0.5mg/dL (0.7-1.3) Estimated GFR (Cockcroft-Gault) 214.2 Glucose Level 124mg/dL (70-99) Calcium Level 8.5mg/dL (8.5-10.1) Phosphorus Level 3.5mg/dL (2.6-4.7) Magnesium Level 2.3mg/dL (1.8-2.4) Glucose (Fingerstick) 142mg/dL (70-99) 118mg/dL (70-99) 133mg/dL (70-99) Test 09/08/16 03:55 09/08/16 05:17 White Blood Count 19.6x10^3/uL (4.0-11.0) Red Blood Count 3.91x10^6/uL (4.30-5.70) Hemoglobin 11.4g/dL (13.0-17.5) Hematocrit 35.3% (39.0-53.0) Mean Corpuscular Volume 90fL (79-100) Mean Corpuscular Hemoglobin 29pg (25-35) Mean Corpuscular Hemoglobin Concent 32g/dL (31-37) Red Cell Distribution Width 13.0% (11.5-14.5) Platelet Count 362x10^3/uL (140-400) Neutrophils (%) (Auto) 87% (31-73) Lymphocytes (%) (Auto) 8% (24-48) Monocytes (%) (Auto) 5% (0-9) Eosinophils (%) (Auto) 0% (0-3) Basophils (%) (Auto) 0% (0-3) Neutrophils # (Auto) 17.1x10^3uL (1.8-7.7) Lymphocytes # (Auto) 1.5x10^3/uL (1.0-4.8) Monocytes # (Auto) 0.9x10^3/uL (0.0-1.1) Eosinophils # (Auto) 0.1x10^3/uL (0.0-0.7) Basophils # (Auto) 0.0x10^3/uL (0.0-0.2) Sodium Level 132mmol/L (136-145) Potassium Level 4.2mmol/L (3.5-5.1) Chloride Level 100mmol/L (98-107) Carbon Dioxide Level 25mmol/L (21-32) Anion Gap 7 (6-14) Blood Urea Nitrogen 9mg/dL (8-26) Creatinine 0.5mg/dL (0.7-1.3) Estimated GFR (Cockcroft-Gault) 214.2 Glucose Level 132mg/dL (70-99) Calcium Level 8.4mg/dL (8.5-10.1) Phosphorus Level 3.7mg/dL (2.6-4.7) Magnesium Level 2.1mg/dL (1.8-2.4) Glucose (Fingerstick) 128mg/dL (70-99) Micro scherichia coli Moderate growth AEROBIC RES 2 Final Escherichia coli Moderate growth AEROBIC RES 3 Final Comment Streptococcus anginosus group Heavy growth ANTIMICROBIAL SUSCEPTIBILITY Final Comment S = Susceptible; I = Intermediate; R = Resistant P = Positive; N = Negative MICS are expressed in micrograms per mL Antibiotic RSLT#1 RSLT#2 RSLT#3 RSLT#4 Amoxicillin/Clavulanic Acid S S Ampicillin R R Cefepime S S Ceftriaxone S S CONTINUED ON NEXT PAGE RUN DATE: 09/07/16 PAGE 2 RUN TIME: 1323 [facility] [address] [place] [address] Conor Young M.D., Aerodynamics Engineer SPEC: [id number] PATIENT: YINA KEENE [id number] ( Continued) Procedure Result ANTIMICROBIAL SUSCEPTIBILITY Final (continued) Cefuroxime S S Ciprofloxacin R R Ertapenem S S Gentamicin S S Imipenem S S Levofloxacin R R Piperacillin R R Tetracycline S R Tobramycin S S Trimethoprim/Sulfa R R Performed at: [facility] - [address] [id number] Nuclear Medicine Technologist: Bushra Bañuelos MD, Phone: [phone] Objective Assessment Diverticulitis Perf viscous -on Zosyn initially but changed to Meropenem 09/04 Abd abscess - s/ p [address] 1/16 - Ecoli/second Ecoli/Strep anginosis Leukocytosis - better. clinically looks better Plan Plan of Care Added Vanc (09/07) and a dose of Gent given increased WBC and unknown cults. Will cont Vanc for now and flu final culs Cont Meropenem/Fluconazole Dosed Levoflox times one 09/06. Gent times one 09/07 F/u labs in am and cults Await repeat CT soon D/w father MIRIAM ORTEZ MD Sep 08, 2016 08:12
[2016-09-08 10:47] VITALS: BP 126/85
--- NOTE | 2016-09-08 11:15 | PDOC ---
Subjective: Subjective: Feels about the same. Loose stools. Vomited once. Objective: Objective: Reviewed surg/ID notes. Vital Signs: Vital Signs Date Time Temp Pulse Resp B/P Pulse Ox O2 Delivery O2 Flow Rate FiO2 09/08/16 10:47 98.7 98 16 126/85 97 Room Air 98.7 Labs: Laboratory Tests Test 09/07/16 11:17 09/07/16 16:47 09/07/16 23:15 09/08/16 05:17 Glucose (Fingerstick) 142mg/dL (70-99) 118mg/dL (70-99) 133mg/dL (70-99) 128mg/dL (70-99) PE: GEN: NAD LUNGS: CTAB HEART: tachycardic ABD: +purulent drainage R>L, some BLQ tenderness, BS quiet NEURO/PSYCH: A & O 3 A/P: Abdominal pain w/ pneumoperitoneum, abscesses -s/p drains by IR 09/04, on IV antibiotics per ID, surgery following Leukocytosis, fever, tachycardia -- WBC better, fever and tachycardia persist. Seems possible repeat CT on 09/11 per surgery. UMM RIVAS Sep 08, 2016 11:15
[2016-09-08] MEDS: FLUCONAZOLE 400MG/200ML PREMIX 200 ML IV SCH (12:02)
[2016-09-08] MEDS: TPN PER PHARMACY MC PRN ×2 (12:49→12:51)
[2016-09-08] MEDS: VANCOMYCIN PER PHARMACY MC PRN ×2 (13:07→16:02)
--- NOTE | 2016-09-08 14:20 | PDOC ---
PROGRESS NOTES Chief Complaint Chief Complaint Acute abd pain ASSESSMENT AND PLAN: 1. Abd abscess: s/p B [place] drainage placement on 09/04. Dr Lopez following. abx changed to merrem, vanco, diflucan 2. Bowel perf: 2/2 inflammatory bowel disease likely. Surgery following 3. Ileus/bowel obstruction: bilious emesis x1 this AM. remains NPO. 4. Sepsis: ongoing tachycardia and leukocytosis. monitor 5. leukocytosis: sl improved. monitor 6. Pain control: on AVIONICS TECHNICIAN, requiring less 7. Malnutrition: mild at PoA, worsening with NPO and acute illness. on TPN 8. Prophylaxis: PPI. no blood thinners for now 2/2 drains/interventions Vitals Vitals Vital Signs Date Time Temp Pulse Resp B/P Pulse Ox O2 Delivery O2 Flow Rate FiO2 09/08/16 10:47 98.7 98 16 126/85 97 Room Air 98.7 Physical Exam General: Alert, Oriented X3, Cooperative, No acute distress Heart: Regular rate, No murmurs Lungs: Clear Abdomen: Soft, Other (tender RLQ, drain area, RLQ drain serous, LLQ drain purulent ) Extremities: No clubbing, No cyanosis, No edema, Normal pulses Skin: No rashes, No breakdown Labs LABS Laboratory Tests Test 09/07/16 16:47 09/07/16 23:15 09/08/16 03:55 09/08/16 05:17 Glucose (Fingerstick) 118mg/dL (70-99) 133mg/dL (70-99) 128mg/dL (70-99) White Blood Count 19.6x10^3/uL (4.0-11.0) Red Blood Count 3.91x10^6/uL (4.30-5.70) Hemoglobin 11.4g/dL (13.0-17.5) Hematocrit 35.3% (39.0-53.0) Mean Corpuscular Volume 90fL (79-100) Mean Corpuscular Hemoglobin 29pg (25-35) Mean Corpuscular Hemoglobin Concent 32g/dL (31-37) Red Cell Distribution Width 13.0% (11.5-14.5) Platelet Count 362x10^3/uL (140-400) Neutrophils (%) (Auto) 87% (31-73) Lymphocytes (%) (Auto) 8% (24-48) Monocytes (%) (Auto) 5% (0-9) Eosinophils (%) (Auto) 0% (0-3) Basophils (%) (Auto) 0% (0-3) Neutrophils # (Auto) 17.1x10^3uL (1.8-7.7) Lymphocytes # (Auto) 1.5x10^3/uL (1.0-4.8) Monocytes # (Auto) 0.9x10^3/uL (0.0-1.1) Eosinophils # (Auto) 0.1x10^3/uL (0.0-0.7) Basophils # (Auto) 0.0x10^3/uL (0.0-0.2) Sodium Level 132mmol/L (136-145) Potassium Level 4.2mmol/L (3.5-5.1) Chloride Level 100mmol/L (98-107) Carbon Dioxide Level 25mmol/L (21-32) Anion Gap 7 (6-14) Blood Urea Nitrogen 9mg/dL (8-26) Creatinine 0.5mg/dL (0.7-1.3) Estimated GFR (Cockcroft-Gault) 214.2 Glucose Level 132mg/dL (70-99) Calcium Level 8.4mg/dL (8.5-10.1) Phosphorus Level 3.7mg/dL (2.6-4.7) Magnesium Level 2.1mg/dL (1.8-2.4) Test 09/08/16 11:22 Glucose (Fingerstick) 109mg/dL (70-99) Review of Systems Review of Systems vomited greenish fluid this AM. no ongonig nausea. abd pain better. trying to hold off on using AVIONICS TECHNICIAN Comment Review of Relevant I have reviewed the following items crystal (where applicable) has been applied. Labs Laboratory Tests Test 09/06/16 16:49 09/07/16 00:10 09/07/16 05:04 09/07/16 08:45 Glucose (Fingerstick) 130mg/dL (70-99) 113mg/dL (70-99) 127mg/dL (70-99) White Blood Count 23.3x10^3/uL (4.0-11.0) Red Blood Count 4.34x10^6/uL (4.30-5.70) Hemoglobin 12.7g/dL (13.0-17.5) Hematocrit 38.3% (39.0-53.0) Mean Corpuscular Volume 89fL (79-100) Mean Corpuscular Hemoglobin 29pg (25-35) Mean Corpuscular Hemoglobin Concent 33g/dL (31-37) Red Cell Distribution Width 12.8% (11.5-14.5) Platelet Count 357x10^3/uL (140-400) Neutrophils (%) (Auto) 91% (31-73) Lymphocytes (%) (Auto) 5% (24-48) Monocytes (%) (Auto) 3% (0-9) Eosinophils (%) (Auto) 0% (0-3) Basophils (%) (Auto) 0% (0-3) Neutrophils # (Auto) 21.2x10^3uL (1.8-7.7) Lymphocytes # (Auto) 1.2x10^3/uL (1.0-4.8) Monocytes # (Auto) 0.8x10^3/uL (0.0-1.1) Eosinophils # (Auto) 0.0x10^3/uL (0.0-0.7) Basophils # (Auto) 0.0x10^3/uL (0.0-0.2) Sodium Level 135mmol/L (136-145) Potassium Level 4.7mmol/L (3.5-5.1) Chloride Level 101mmol/L (98-107) Carbon Dioxide Level 25mmol/L (21-32) Anion Gap 9 (6-14) Blood Urea Nitrogen 10mg/dL (8-26) Creatinine 0.5mg/dL (0.7-1.3) Estimated GFR (Cockcroft-Gault) 214.2 Glucose Level 124mg/dL (70-99) Calcium Level 8.5mg/dL (8.5-10.1) Phosphorus Level 3.5mg/dL (2.6-4.7) Magnesium Level 2.3mg/dL (1.8-2.4) Test 09/07/16 11:17 09/07/16 16:47 09/07/16 23:15 09/08/16 03:55 Glucose (Fingerstick) 142mg/dL (70-99) 118mg/dL (70-99) 133mg/dL (70-99) White Blood Count 19.6x10^3/uL (4.0-11.0) Red Blood Count 3.91x10^6/uL (4.30-5.70) Hemoglobin 11.4g/dL (13.0-17.5) Hematocrit 35.3% (39.0-53.0) Mean Corpuscular Volume 90fL (79-100) Mean Corpuscular Hemoglobin 29pg (25-35) Mean Corpuscular Hemoglobin Concent 32g/dL (31-37) Red Cell Distribution Width 13.0% (11.5-14.5) Platelet Count 362x10^3/uL (140-400) Neutrophils (%) (Auto) 87% (31-73) Lymphocytes (%) (Auto) 8% (24-48) Monocytes (%) (Auto) 5% (0-9) Eosinophils (%) (Auto) 0% (0-3) Basophils (%) (Auto) 0% (0-3) Neutrophils # (Auto) 17.1x10^3uL (1.8-7.7) Lymphocytes # (Auto) 1.5x10^3/uL (1.0-4.8) Monocytes # (Auto) 0.9x10^3/uL (0.0-1.1) Eosinophils # (Auto) 0.1x10^3/uL (0.0-0.7) Basophils # (Auto) 0.0x10^3/uL (0.0-0.2) Sodium Level 132mmol/L (136-145) Potassium Level 4.2mmol/L (3.5-5.1) Chloride Level 100mmol/L (98-107) Carbon Dioxide Level 25mmol/L (21-32) Anion Gap 7 (6-14) Blood Urea Nitrogen 9mg/dL (8-26) Creatinine 0.5mg/dL (0.7-1.3) Estimated GFR (Cockcroft-Gault) 214.2 Glucose Level 132mg/dL (70-99) Calcium Level 8.4mg/dL (8.5-10.1) Phosphorus Level 3.7mg/dL (2.6-4.7) Magnesium Level 2.1mg/dL (1.8-2.4) Test 09/08/16 05:17 09/08/16 11:22 Glucose (Fingerstick) 128mg/dL (70-99) 109mg/dL (70-99) Laboratory Tests Test 09/07/16 16:47 09/07/16 23:15 09/08/16 03:55 09/08/16 05:17 Glucose (Fingerstick) 118mg/dL (70-99) 133mg/dL (70-99) 128mg/dL (70-99) White Blood Count 19.6x10^3/uL (4.0-11.0) Red Blood Count 3.91x10^6/uL (4.30-5.70) Hemoglobin 11.4g/dL (13.0-17.5) Hematocrit 35.3% (39.0-53.0) Mean Corpuscular Volume 90fL (79-100) Mean Corpuscular Hemoglobin 29pg (25-35) Mean Corpuscular Hemoglobin Concent 32g/dL (31-37) Red Cell Distribution Width 13.0% (11.5-14.5) Platelet Count 362x10^3/uL (140-400) Neutrophils (%) (Auto) 87% (31-73) Lymphocytes (%) (Auto) 8% (24-48) Monocytes (%) (Auto) 5% (0-9) Eosinophils (%) (Auto) 0% (0-3) Basophils (%) (Auto) 0% (0-3) Neutrophils # (Auto) 17.1x10^3uL (1.8-7.7) Lymphocytes # (Auto) 1.5x10^3/uL (1.0-4.8) Monocytes # (Auto) 0.9x10^3/uL (0.0-1.1) Eosinophils # (Auto) 0.1x10^3/uL (0.0-0.7) Basophils # (Auto) 0.0x10^3/uL (0.0-0.2) Sodium Level 132mmol/L (136-145) Potassium Level 4.2mmol/L (3.5-5.1) Chloride Level 100mmol/L (98-107) Carbon Dioxide Level 25mmol/L (21-32) Anion Gap 7 (6-14) Blood Urea Nitrogen 9mg/dL (8-26) Creatinine 0.5mg/dL (0.7-1.3) Estimated GFR (Cockcroft-Gault) 214.2 Glucose Level 132mg/dL (70-99) Calcium Level 8.4mg/dL (8.5-10.1) Phosphorus Level 3.7mg/dL (2.6-4.7) Magnesium Level 2.1mg/dL (1.8-2.4) Test 09/08/16 11:22 Glucose (Fingerstick) 109mg/dL (70-99) Microbiology 08/30/16 Blood Culture - Final, Complete NO GROWTH AFTER 5 DAYS 08/30/16 Urine Culture - Final, Complete 08/30/16 Urine Culture Result 1 (TOAN) - Final, Complete 09/04/16 Gram Stain - Final, Complete Medications Current Medications Sodium Chloride (Iv Sodium Chloride 0.9% 1000ml Bag) 1,000 ml @ 1,000 mls/hr Q1H IV Last administered on 08/30/16 19:58; Start 08/30/16 at 19:45; Stop 07/06 at 20:44; Status DC Morphine Sulfate 4 mg 1X ONCE IV Last administered on 08/30/16 19:58; Start 08/30/16 at 19:45; Stop 08/30/16 at 19:46; Status DC Ondansetron HCl (Zofran) 4 mg 1X ONCE IV Last administered on 08/30/16 19:57 ; Start 08/30/16 at 19:45; Stop 08/30/16 at 19:46; Status DC Iohexol (Omnipaque 300 Mg/ml) 75 ml 1X ONCE IV Last administered on 08/30/16 20:57; Start 08/30/16 at 20:00; Stop 08/30/16 at 20:01; Status DC Morphine Sulfate 4 mg 1X ONCE IV Last administered on 08/30/16 22:22; Start 08/30/16 at 21:45; Stop 08/30/16 at 21:46; Status DC Piperacillin Sod/ Tazobactam Sod 1 each 1 each PRN DAILY PRN MC SEE COMMENTS; Start 08/30/16 at 21:45; Stop 09/02/16 at 13:43; Status DC Piperacillin Sod/ Tazobactam Sod/ Sodium Chloride (Zosyn/Iv Sodium Chloride 0.9 % 50ml) 50 ml @ 100 mls/hr Q6HRS IV Last administered on 09/04/16 05:07; Start 08/30/16 at 22:00; Stop 09/04/16 at 10:30; Status DC Ondansetron HCl (Zofran) 4 mg PRN Q8HRS PRN IV NAUSEA/VOMITING; Start 08/30/16 at 22:30; Stop 08/31/16 at 22:29; Status DC Morphine Sulfate 4 mg 4 mg PRN Q2HR PRN IV PAIN Last administered on 08/30/16 23:16; Start 08/30/16 at 22:30; Stop 08/31/16 at 22:29; Status DC Sodium Chloride (Iv Sodium Chloride 0.9% 1000ml Bag) 1,000 ml @ 125 mls/hr Q8H IV Last administered on 08/31/16 09:13; Start 08/30/16 at 22:30; Stop at 13:05; Status DC Acetaminophen 650 mg 650 mg PRN Q4HRS PRN PO FEVER Last administered on 23:15; Start 08/30/16 at 22:30; Stop 08/31/16 at 22:29; Status DC Hydromorphone HCl 30 ml @ 0 mls/hr CONT PRN PRN IV PROTOCOL Last administered on 09/08/16 04:45; Start 08/30/16 at 23:30 Potassium Chloride/Dextrose/ Sod Cl 1,000 ml @ 100 mls/hr Q10H IV Last administered on 09/01/16 03:52; Start 08/31/16 at 13:15; Stop 09/01/16 at 14:37 ; Status DC Sodium Chloride 1,000 ml @ 1,000 mls/hr 1X ONCE IV Last administered on 14:24; Start 08/31/16 at 13:15; Stop 08/31/16 at 14:14; Status DC Albumin Human (Plasmanate) 500 ml @ 125 mls/hr 1X ONCE IV Last administered on 08/31/16 17:21; Start 08/31/16 at 17:00; Stop 08/31/16 at 20:59; Status DC Ondansetron HCl 4 mg 4 mg PRN Q6HRS PRN IV NAUSEA/VOMITING; Start 08/31/16 at 22:45 Amino Acids/ Glycerin/ Electrolytes (Procalamine) 1,000 ml @ 100 mls/hr Q10H IV Last administered on 09/05/16 10:00; Start 09/01/16 at 14:45; Stop at 21:59; Status DC Acetaminophen (Tylenol) 650 mg PRN Q4HRS PRN RI MILD PAIN / TEMP Last administered on 09/03/16 20:39; Start 09/01/16 at 20:30 Lorazepam (Ativan) 1 mg PRN Q4HRS PRN IV ANXIETY / AGITATION Last administered on 09/03/16 17:57; Start 09/02/16 at 10:30 Saliva Substitute (Biotene Moisturizing Mouth) 2 spray PRN Q15MIN PRN PO DRY MOUTH Last administered on 09/02/16 18:13; Start 09/02/16 at 10:30 Iohexol (Omnipaque 240 Mg/ml) 30 ml 1X ONCE PO Last administered on 09/03/16 10:18; Start 09/03/16 at 09:00; Stop 09/03/16 at 09:01; Status DC Iohexol (Omnipaque 300 Mg/ml) 75 ml 1X ONCE IV Last administered on 09/03/16 10:18; Start 09/03/16 at 09:00; Stop 09/03/16 at 09:01; Status DC Info (Do NOT chart on this entry -- for MONITORING) 1 each PRN DAILY PRN MC SEE COMMENTS; Start 09/03/16 at 08:45; Stop 09/05/16 at 08:44; Status DC Info 1 each PRN DAILY PRN MC SEE COMMENTS Last administered on 09/08/16 12:51 ; Start 09/04/16 at 15:00 Midazolam HCl (Versed) 5 mg STK-MED ONCE .ROUTE ; Start 09/04/16 at 09:54; Stop 09/04/16 at 09:55; Status DC Fentanyl Citrate (Fentanyl 5ml Vial) 250 mcg STK-MED ONCE .ROUTE ; Start at 09:54; Stop 09/04/16 at 09:55; Status DC Lidocaine/Sodium Bicarbonate 20 ml 20 ml STK-MED ONCE IJ ; Start 09/04/16 at 09: 55; Stop 09/04/16 at 09:56; Status DC Meropenem 1 gm/ Sodium Chloride 100 ml @ 200 mls/hr Q8HRS IV Last administered on 09/08/16 14:03; Start 09/04/16 at 14:00 Fluconazole/ Sodium Chloride (Diflucan 400mg/ 200ml Premix) 200 ml @ 100 mls/ hr Q24H IV Last administered on 09/08/16 12:02; Start 09/04/16 at 11:00 Lidocaine/Sodium Bicarbonate (Buffered Lidocaine 1%) 3 ml 1X ONCE IJ Last administered on 09/04/16 10:49; Start 09/04/16 at 10:45; Stop 09/04/16 at 10:48 ; Status DC Midazolam HCl (Versed) 0.5 mg 1X ONCE IV Last administered on 09/04/16 10:50 ; Start 09/04/16 at 10:45; Stop 09/04/16 at 10:48; Status DC Fentanyl Citrate 100 mcg 100 mcg 1X ONCE IV Last administered on 09/04/16 10: 50; Start 09/04/16 at 10:45; Stop 09/04/16 at 10:48; Status DC Sodium Chloride 90 meq/Potassium Chloride 50 meq/ Potassium Phosphate 13.6 mmol/ Magnesium Sulfate 10 meq/ Calcium Gluconate 10 meq/ Multivitamins/ Minerals 10 ml/ Chromium/Copper/ Manganese/Seleni/ Zn 1 ml/Total Parenteral Nutrition/Amino Acids/Dextrose/ Fat Emulsion Intravenous 1,512 ml @ 63 mls/hr TPN CONT IV Last administered on 09/05/16 20:50; Start 09/05/16 at 22:00; Stop 09/06/16 at 21:59; Status DC Levofloxacin/ Dextrose 150 ml @ 100 mls/hr 1X ONCE IV Last administered on 09:00; Start 09/06/16 at 09:00; Stop 09/06/16 at 10:29; Status DC Sodium Chloride/ Potassium Chloride/ Potassium Phosphate/ Magnesium Sulfate/ Calcium Gluconate/ Multivitamins/ Minerals/Chromium/ Copper/Manganese/ Seleni/Zn /Total Parenteral Nutrition/Amino Acids/Dextrose/ Fat Emulsion Intravenous ( Sodium Chloride/ Potassium Phospha... 1,512 ml @ 63 mls/hr TPN CONT IV Last administered on 09/06/16 21:49; Start 09/06/16 at 22:00; Stop 09/07/16 at 21:59 ; Status DC Alteplase, Recombinant (Cathflo) 2 mg 1X ONCE INT CAT Last administered on 20:43; Start 09/07/16 at 10:00; Stop 09/07/16 at 10:01; Status DC Vancomycin HCl (Vanco Per Pharmacy) 1 each PRN DAILY PRN MC SEE COMMENTS Last administered on 09/08/16 13:07; Start 09/07/16 at 10:30 Gentamicin Sulfate 1 each 1 each PRN DAILY PRN MC SEE COMMENTS; Start 09/07/16 at 10:15; Stop 09/07/16 at 13:00; Status DC Vancomycin HCl 2 gm/Sodium Chloride 500 ml @ 250 mls/hr 1X ONCE IV Last administered on 09/07/16 14:58; Start 09/07/16 at 11:00; Stop 09/07/16 at 12:59 ; Status DC Gentamicin Sulfate 500 mg/ Sodium Chloride 112.5 ml @ 112.5 mls/ hr 1X ONCE IV Last administered on 09/07/16 12:52; Start 09/07/16 at 11:00; Stop at 11:59; Status DC Sodium Chloride 90 meq/Potassium Chloride 50 meq/ Potassium Phosphate 13.6 mmol/ Magnesium Sulfate 10 meq/ Calcium Gluconate 10 meq/ Multivitamins/ Minerals 10 ml/ Chromium/Copper/ Manganese/Seleni/ Zn 1 ml/Total Parenteral Nutrition/Amino Acids/Dextrose/ Fat Emulsion Intravenous 1,512 ml @ 63 mls/hr TPN CONT IV Last administered on 09/07/16 21:41; Start 09/07/16 at 22:00; Stop 09/08/16 at 21:59 Vancomycin HCl/ Sodium Chloride (Iv Sodium Chloride 0.9% 250ml) 250 ml @ 167 mls/hr Q8H IV Last administered on 09/08/16 05:39; Start 09/07/16 at 23:00 Vancomycin HCl 1 each 1 each 1X ONCE MC ; Start 09/08/16 at 14:30; Stop at 14:31 Sodium Chloride/ Potassium Chloride/ Potassium Phosphate/ Magnesium Sulfate/ Calcium Gluconate/ Multivitamins/ Minerals/Chromium/ Copper/Manganese/ Seleni/Zn /Total Parenteral Nutrition/Amino Acids/Dextrose/ Fat Emulsion Intravenous ( Sodium Chloride/ Potassium Phospha... 1,512 ml @ 63 mls/hr TPN CONT IV ; Start 09/08/16 at 22:00; Stop 09/09/16 at 21:59 Vitals/I & O Vital Sign - Last 24 Hours 09/07/16 09/07/16 09/07/16 09/07/16 15:00 19:00 19:16 23:21 Temp 98.3 98.2 99.8 98.3 98.2 99.8 Pulse 105 106 104 Resp B/P 119/78 120/79 125/79 Pulse Ox 97 97 96 O2 Delivery Room Air Room Air Room Air Room Air 09/08/16 09/08/16 09/08/16 09/08/16 02:32 04:45 05:17 07:00 Temp 100.0 99.3 100.0 99.3 Pulse 107 101 Resp 16 B/P 119/80 128/83 Pulse Ox 96 99 O2 Delivery Room Air Room Air Room Air Room Air 09/08/16 09/08/16 08:00 10:47 Temp 98.7 98.7 Pulse 98 Resp 16 B/P 126/85 Pulse Ox 97 O2 Delivery Room Air Room Air Intake and Output 09/07/16 09/07/16 09/08/16 15:00 23:00 07:00 Intake Total 565 ml Output Total 490 ml 510 ml Balance -490 ml 55 ml HAYES DANIELS MD Sep 08, 2016 14:20
[2016-09-08 15:00] VITALS: BP 123/81
--- NOTE | 2016-09-08 15:58 | PDOC ---
SURGICAL PROGRESS NOTE Subjective had some emesis earlier, none since no new c/o Vital Signs Vital Signs Date Time Temp Pulse Resp B/P Pulse Ox O2 Delivery O2 Flow Rate FiO2 09/08/16 15:00 98.5 90 16 123/81 98 Room Air 98.5 I&O Intake and Output 09/08/16 07:00 Intake Total 565 ml Output Total 1000 ml Balance -435 ml Intake Oral 0 ml Other 565 ml Output Urine Total 950 ml Drainage Total 50 ml PATIENT HAS A BAKER: No General: Alert, Oriented X3, No acute distress Abdomen: Soft Labs Laboratory Tests Test 09/06/16 16:49 09/07/16 00:10 09/07/16 05:04 09/07/16 08:45 Glucose (Fingerstick) 130mg/dL (70-99) 113mg/dL (70-99) 127mg/dL (70-99) White Blood Count 23.3x10^3/uL (4.0-11.0) Red Blood Count 4.34x10^6/uL (4.30-5.70) Hemoglobin 12.7g/dL (13.0-17.5) Hematocrit 38.3% (39.0-53.0) Mean Corpuscular Volume 89fL (79-100) Mean Corpuscular Hemoglobin 29pg (25-35) Mean Corpuscular Hemoglobin Concent 33g/dL (31-37) Red Cell Distribution Width 12.8% (11.5-14.5) Platelet Count 357x10^3/uL (140-400) Neutrophils (%) (Auto) 91% (31-73) Lymphocytes (%) (Auto) 5% (24-48) Monocytes (%) (Auto) 3% (0-9) Eosinophils (%) (Auto) 0% (0-3) Basophils (%) (Auto) 0% (0-3) Neutrophils # (Auto) 21.2x10^3uL (1.8-7.7) Lymphocytes # (Auto) 1.2x10^3/uL (1.0-4.8) Monocytes # (Auto) 0.8x10^3/uL (0.0-1.1) Eosinophils # (Auto) 0.0x10^3/uL (0.0-0.7) Basophils # (Auto) 0.0x10^3/uL (0.0-0.2) Sodium Level 135mmol/L (136-145) Potassium Level 4.7mmol/L (3.5-5.1) Chloride Level 101mmol/L (98-107) Carbon Dioxide Level 25mmol/L (21-32) Anion Gap 9 (6-14) Blood Urea Nitrogen 10mg/dL (8-26) Creatinine 0.5mg/dL (0.7-1.3) Estimated GFR (Cockcroft-Gault) 214.2 Glucose Level 124mg/dL (70-99) Calcium Level 8.5mg/dL (8.5-10.1) Phosphorus Level 3.5mg/dL (2.6-4.7) Magnesium Level 2.3mg/dL (1.8-2.4) Test 09/07/16 11:17 09/07/16 16:47 09/07/16 23:15 09/08/16 03:55 Glucose (Fingerstick) 142mg/dL (70-99) 118mg/dL (70-99) 133mg/dL (70-99) White Blood Count 19.6x10^3/uL (4.0-11.0) Red Blood Count 3.91x10^6/uL (4.30-5.70) Hemoglobin 11.4g/dL (13.0-17.5) Hematocrit 35.3% (39.0-53.0) Mean Corpuscular Volume 90fL (79-100) Mean Corpuscular Hemoglobin 29pg (25-35) Mean Corpuscular Hemoglobin Concent 32g/dL (31-37) Red Cell Distribution Width 13.0% (11.5-14.5) Platelet Count 362x10^3/uL (140-400) Neutrophils (%) (Auto) 87% (31-73) Lymphocytes (%) (Auto) 8% (24-48) Monocytes (%) (Auto) 5% (0-9) Eosinophils (%) (Auto) 0% (0-3) Basophils (%) (Auto) 0% (0-3) Neutrophils # (Auto) 17.1x10^3uL (1.8-7.7) Lymphocytes # (Auto) 1.5x10^3/uL (1.0-4.8) Monocytes # (Auto) 0.9x10^3/uL (0.0-1.1) Eosinophils # (Auto) 0.1x10^3/uL (0.0-0.7) Basophils # (Auto) 0.0x10^3/uL (0.0-0.2) Sodium Level 132mmol/L (136-145) Potassium Level 4.2mmol/L (3.5-5.1) Chloride Level 100mmol/L (98-107) Carbon Dioxide Level 25mmol/L (21-32) Anion Gap 7 (6-14) Blood Urea Nitrogen 9mg/dL (8-26) Creatinine 0.5mg/dL (0.7-1.3) Estimated GFR (Cockcroft-Gault) 214.2 Glucose Level 132mg/dL (70-99) Calcium Level 8.4mg/dL (8.5-10.1) Phosphorus Level 3.7mg/dL (2.6-4.7) Magnesium Level 2.1mg/dL (1.8-2.4) Test 09/08/16 05:17 09/08/16 11:22 09/08/16 15:15 Glucose (Fingerstick) 128mg/dL (70-99) 109mg/dL (70-99) Vancomycin Level Trough 5.1mcg/mL (10.0-20.0) Vancomycin Last Dose Date 09/08/16 Vancomycin Last Dose Time 0700 Laboratory Tests Test 09/07/16 16:47 09/07/16 23:15 09/08/16 03:55 09/08/16 05:17 Glucose (Fingerstick) 118mg/dL (70-99) 133mg/dL (70-99) 128mg/dL (70-99) White Blood Count 19.6x10^3/uL (4.0-11.0) Red Blood Count 3.91x10^6/uL (4.30-5.70) Hemoglobin 11.4g/dL (13.0-17.5) Hematocrit 35.3% (39.0-53.0) Mean Corpuscular Volume 90fL (79-100) Mean Corpuscular Hemoglobin 29pg (25-35) Mean Corpuscular Hemoglobin Concent 32g/dL (31-37) Red Cell Distribution Width 13.0% (11.5-14.5) Platelet Count 362x10^3/uL (140-400) Neutrophils (%) (Auto) 87% (31-73) Lymphocytes (%) (Auto) 8% (24-48) Monocytes (%) (Auto) 5% (0-9) Eosinophils (%) (Auto) 0% (0-3) Basophils (%) (Auto) 0% (0-3) Neutrophils # (Auto) 17.1x10^3uL (1.8-7.7) Lymphocytes # (Auto) 1.5x10^3/uL (1.0-4.8) Monocytes # (Auto) 0.9x10^3/uL (0.0-1.1) Eosinophils # (Auto) 0.1x10^3/uL (0.0-0.7) Basophils # (Auto) 0.0x10^3/uL (0.0-0.2) Sodium Level 132mmol/L (136-145) Potassium Level 4.2mmol/L (3.5-5.1) Chloride Level 100mmol/L (98-107) Carbon Dioxide Level 25mmol/L (21-32) Anion Gap 7 (6-14) Blood Urea Nitrogen 9mg/dL (8-26) Creatinine 0.5mg/dL (0.7-1.3) Estimated GFR (Cockcroft-Gault) 214.2 Glucose Level 132mg/dL (70-99) Calcium Level 8.4mg/dL (8.5-10.1) Phosphorus Level 3.7mg/dL (2.6-4.7) Magnesium Level 2.1mg/dL (1.8-2.4) Test 09/08/16 11:22 09/08/16 15:15 Glucose (Fingerstick) 109mg/dL (70-99) Vancomycin Level Trough 5.1mcg/mL (10.0-20.0) Vancomycin Last Dose Date 09/08/16 Vancomycin Last Dose Time 0700 I have reviewed the following temp trending down Problem List Problems Medical Problems: (1) Abdominal pain Status: Acute (2) Pneumoperitoneum Status: Acute Assessment/Plan clinically a little better with temps trending down, WBC down a little ileus vs obstruction 2/2 small bowel changes seen on presentation continue TPN, NPO, NG if emesis recurs Dr Murphy to follow over the weekend Problems: RODRIGUE LÓPEZ MD Sep 08, 2016 15:58
[2016-09-08] MEDS: PANTOPRAZOLE IV PUSH 40 MG VIAL. IVP SCH (16:06)
[2016-09-08 19:00] VITALS: BP 130/78
[2016-09-08] MEDS ORDERED: DEXTROSE 70% IV SCH ×10 (22:00)
[2016-09-08] MEDS ORDERED: AMINO ACIDS IV SCH ×10 (22:00)
[2016-09-08] MEDS ORDERED: [UNRECOGNIZED DRUG - OTHER] IV SCH ×10 (22:00)
[2016-09-08] MEDS ORDERED: TOTAL PARENTERAL NUTRITION IV SCH ×10 (22:00)
[2016-09-08 23:00] VITALS: BP 118/79
[2016-09-09] VITALS (7 sets, daily range): BP systolic 113–120; BP diastolic 73–87
[2016-09-09] MEDS: VANCOMYCIN 1.25 GM in IV NORMAL SALINE 250ML 250 ML IV SCH ×4 (00:18→17:48)
[2016-09-09] MEDS: MEROPENEM 1 GM in IV NORMAL SALINE 100ML 100 ML IV SCH ×3 (05:15→22:37)
[2016-09-09] MEDS: PANTOPRAZOLE IV PUSH 40 MG VIAL. IVP SCH (07:46)
--- NOTE | 2016-09-09 10:01 | PDOC ---
AASHISH LEYVA [employer] AIDE 09/09/16 1001: SURGICAL PROGRESS NOTE Subjective no further emesis no flatus yet pain managed Vital Signs Vital Signs Date Time Temp Pulse Resp B/P Pulse Ox O2 Delivery O2 Flow Rate FiO2 09/09/16 08:21 98.6 88 16 118/74 96 Room Air 98.6 09/09/16 07:20 0.5 I&O Intake and Output 09/09/16 07:00 Intake Total 1985 ml Output Total 440 ml Balance 1545 ml Intake Oral 35 ml IV Total 1950 ml Output Urine Total 400 ml Drainage Total 40 ml # Bowel Movements 2 General: Alert, Oriented X3, Cooperative, No acute distress Abdomen: Soft, Other (drain site tenderness, scant drain output ) Labs Laboratory Tests Test 09/07/16 11:17 09/07/16 16:47 09/07/16 23:15 09/08/16 03:55 Glucose (Fingerstick) 142mg/dL (70-99) 118mg/dL (70-99) 133mg/dL (70-99) White Blood Count 19.6x10^3/uL (4.0-11.0) Red Blood Count 3.91x10^6/uL (4.30-5.70) Hemoglobin 11.4g/dL (13.0-17.5) Hematocrit 35.3% (39.0-53.0) Mean Corpuscular Volume 90fL (79-100) Mean Corpuscular Hemoglobin 29pg (25-35) Mean Corpuscular Hemoglobin Concent 32g/dL (31-37) Red Cell Distribution Width 13.0% (11.5-14.5) Platelet Count 362x10^3/uL (140-400) Neutrophils (%) (Auto) 87% (31-73) Lymphocytes (%) (Auto) 8% (24-48) Monocytes (%) (Auto) 5% (0-9) Eosinophils (%) (Auto) 0% (0-3) Basophils (%) (Auto) 0% (0-3) Neutrophils # (Auto) 17.1x10^3uL (1.8-7.7) Lymphocytes # (Auto) 1.5x10^3/uL (1.0-4.8) Monocytes # (Auto) 0.9x10^3/uL (0.0-1.1) Eosinophils # (Auto) 0.1x10^3/uL (0.0-0.7) Basophils # (Auto) 0.0x10^3/uL (0.0-0.2) Sodium Level 132mmol/L (136-145) Potassium Level 4.2mmol/L (3.5-5.1) Chloride Level 100mmol/L (98-107) Carbon Dioxide Level 25mmol/L (21-32) Anion Gap 7 (6-14) Blood Urea Nitrogen 9mg/dL (8-26) Creatinine 0.5mg/dL (0.7-1.3) Estimated GFR (Cockcroft-Gault) 214.2 Glucose Level 132mg/dL (70-99) Calcium Level 8.4mg/dL (8.5-10.1) Phosphorus Level 3.7mg/dL (2.6-4.7) Magnesium Level 2.1mg/dL (1.8-2.4) Test 09/08/16 05:17 09/08/16 11:22 09/08/16 15:15 09/08/16 18:07 Glucose (Fingerstick) 128mg/dL (70-99) 109mg/dL (70-99) 103mg/dL (70-99) Vancomycin Level Trough 5.1mcg/mL (10.0-20.0) Vancomycin Last Dose Date 09/08/16 Vancomycin Last Dose Time 0700 Test 09/08/16 23:04 09/09/16 05:03 Glucose (Fingerstick) 111mg/dL (70-99) 125mg/dL (70-99) Laboratory Tests Test 09/08/16 11:22 09/08/16 15:15 09/08/16 18:07 09/08/16 23:04 Glucose (Fingerstick) 109mg/dL (70-99) 103mg/dL (70-99) 111mg/dL (70-99) Vancomycin Level Trough 5.1mcg/mL (10.0-20.0) Vancomycin Last Dose Date 09/08/16 Vancomycin Last Dose Time 0700 Test 09/09/16 05:03 Glucose (Fingerstick) 125mg/dL (70-99) Problem List Problems Medical Problems: (1) Abdominal pain Status: Acute (2) Pneumoperitoneum Status: Acute Assessment/Plan plans for CT sunday npo, bowel rest Problems: PETER TARIQ MD 09/10/16 1239: SURGICAL PROGRESS NOTE Problem List Agree with above Problems: AASHISH LEYVA APRN Sep 09, 2016 10:01 PETER TARIQ MD Sep 10, 2016 12:39
[2016-09-09 11:06] LABS: CALCIUM 8.9 mg/dL (8.5-10.1); CREATININE 0.6 mg/dL (0.7-1.3); GFR 173.6; POTASSIUM 4.2 mmol/L (3.5-5.1)
[2016-09-09 11:07] LABS: BASO # 0.1 x10^3/uL (0.0-0.2); BASO % 1 % (0-3); EOS % 0 % (0-3); HEMATOCRIT 37.7 % (39.0-53.0); HEMOGLOBIN 12.7 g/dL (13.0-17.5); LYMPH # 1.5 x10^3/uL (1.0-4.8); LYMPH % 7 % (24-48); MEAN CORPUSCULAR HEMOGLOBIN 30 pg (25-35); MEAN CORPUSCULAR HGB CONC 34 g/dL (31-37); MEAN CORPUSCULAR VOLUME 87 fL (79-100); MONO % 4 % (0-9); NEUT % 88 % (31-73); PLATELET COUNT 426 x10^3/uL (140-400); RED BLOOD COUNT 4.33 x10^6/uL (4.30-5.70); RED CELL DISTRIBUTION WIDTH 12.8 % (11.5-14.5); WHITE BLOOD COUNT 22.1 x10^3/uL (4.0-11.0)
[2016-09-09 11:12] LABS: MAGNESIUM 2.1 mg/dL (1.8-2.4); PHOSPHORUS 3.9 mg/dL (2.6-4.7)
[2016-09-09] MEDS: FLUCONAZOLE 400MG/200ML PREMIX 200 ML IV SCH (11:14)
--- NOTE | 2016-09-09 14:12 | PDOC ---
Infectious Disease Note Subjective Subjective Liquid stools x 2 so far today. Denies N/V/abdominal pain/cramps Low-grade fever Tmax 100 TPN ROS ROS GEN: Denies fevers, chills, sweats CV: Denies chest pain RESP: Denies shortness of air, cough NEURO: Denies headaches Vital Sign Vital Signs Vital Signs Date Time Temp Pulse Resp B/P Pulse Ox O2 Delivery O2 Flow Rate FiO2 09/09/16 11:22 98.2 95 16 117/87 96 Room Air 98.2 09/09/16 07:20 0.5 Physical Exam PHYSICAL EXAM GENERAL: Watching TV, relaxed appearance HEENT: Oral cavity clear NECK: Supple LUNGS: Clear HEART: S1S2, no gallop, no murmur ABD: Obese, soft, NT. Drains x 2 intact. EXT: No edema, no cyanosis SHIPFITTER APPRENTICE: Alert, oriented x 3, no focal neurologic deficit SKIN: No rash RUE-PICC. clean Labs Lab Laboratory Tests Test 09/08/16 15:15 09/08/16 18:07 09/08/16 23:04 09/09/16 05:03 Vancomycin Level Trough 5.1mcg/mL (10.0-20.0) Vancomycin Last Dose Date 09/08/16 Vancomycin Last Dose Time 0700 Glucose (Fingerstick) 103mg/dL (70-99) 111mg/dL (70-99) 125mg/dL (70-99) Test 09/09/16 10:50 09/09/16 11:34 White Blood Count 22.1x10^3/uL (4.0-11.0) Red Blood Count 4.33x10^6/uL (4.30-5.70) Hemoglobin 12.7g/dL (13.0-17.5) Hematocrit 37.7% (39.0-53.0) Mean Corpuscular Volume 87fL (79-100) Mean Corpuscular Hemoglobin 30pg (25-35) Mean Corpuscular Hemoglobin Concent 34g/dL (31-37) Red Cell Distribution Width 12.8% (11.5-14.5) Platelet Count 426x10^3/uL (140-400) Neutrophils (%) (Auto) 88% (31-73) Lymphocytes (%) (Auto) 7% (24-48) Monocytes (%) (Auto) 4% (0-9) Eosinophils (%) (Auto) 0% (0-3) Basophils (%) (Auto) 1% (0-3) Neutrophils # (Auto) 19.5x10^3uL (1.8-7.7) Lymphocytes # (Auto) 1.5x10^3/uL (1.0-4.8) Monocytes # (Auto) 0.9x10^3/uL (0.0-1.1) Eosinophils # (Auto) 0.0x10^3/uL (0.0-0.7) Basophils # (Auto) 0.1x10^3/uL (0.0-0.2) Sodium Level 137mmol/L (136-145) Potassium Level 4.2mmol/L (3.5-5.1) Chloride Level 101mmol/L (98-107) Carbon Dioxide Level 23mmol/L (21-32) Anion Gap 13 (6-14) Blood Urea Nitrogen 8mg/dL (8-26) Creatinine 0.6mg/dL (0.7-1.3) Estimated GFR (Cockcroft-Gault) 173.6 Glucose Level 126mg/dL (70-99) Calcium Level 8.9mg/dL (8.5-10.1) Phosphorus Level 3.9mg/dL (2.6-4.7) Magnesium Level 2.1mg/dL (1.8-2.4) Glucose (Fingerstick) 126mg/dL (70-99) Objective Assessment Diverticulitis Perforated viscous -on Zosyn initially but changed to Meropenem 09/04 Abd abscess - s/ p [address] 09/04 - E. coli x 2 spp, Strep anginosis & bacteroides Leukocytosis. Plan Plan of Care Vanc (09/07), Meropenem & Fluconazole -Dose Gent times one 09/07. -Dose Levofloxacin times one 09/06. Monitor WBC, Cr & temp Await repeat CT soon Patient seen and examined, Chart reviewed. Case discussed with AUTO INSPECTION SPECIALIST. Agree with above plan JOHAN MEYER APRN Sep 09, 2016 14:12 ANGELA JENKINS MD Sep 09, 2016 22:55
--- NOTE | 2016-09-09 14:37 | PDOC ---
PROGRESS NOTES Chief Complaint Chief Complaint Acute abd pain 2/2 abd abscess s/p bl [place] drainage on 09/04 perforated bowls, 2/2 inflammatory bowel disease likely abd abcess sepsis malnuitrition, not POA on EXPORT COORDINATOR for abdomnial pain cont NPO plan: 1. fu with id, ir, sx, gi 2. IR abscess drainage on 09/04 3. abx changed to meropenum and flagyl as per ID on 09/04, levaquin 09/05 x1, vanco 09/07 x1 cont EXPORT COORDINATOR for pain control, cont since NPO dvt ppx TPN NPO, NGT dced as per sx. 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, feels ok Vitals Vitals Vital Signs Date Time Temp Pulse Resp B/P Pulse Ox O2 Delivery O2 Flow Rate FiO2 09/09/16 11:22 98.2 95 16 117/87 96 Room Air 98.2 09/09/16 07:20 0.5 Physical Exam General: Alert, Oriented X3, Cooperative, No acute distress Heart: Regular rate, No murmurs Lungs: Clear Abdomen: Soft, Other (drain site tenderness, scant drain output ) Extremities: No clubbing, No cyanosis, No edema, Normal pulses Skin: No rashes, No breakdown Labs LABS Laboratory Tests Test 09/08/16 15:15 09/08/16 18:07 09/08/16 23:04 09/09/16 05:03 Vancomycin Level Trough 5.1mcg/mL (10.0-20.0) Vancomycin Last Dose Date 09/08/16 Vancomycin Last Dose Time 0700 Glucose (Fingerstick) 103mg/dL (70-99) 111mg/dL (70-99) 125mg/dL (70-99) Test 09/09/16 10:50 09/09/16 11:34 White Blood Count 22.1x10^3/uL (4.0-11.0) Red Blood Count 4.33x10^6/uL (4.30-5.70) Hemoglobin 12.7g/dL (13.0-17.5) Hematocrit 37.7% (39.0-53.0) Mean Corpuscular Volume 87fL (79-100) Mean Corpuscular Hemoglobin 30pg (25-35) Mean Corpuscular Hemoglobin Concent 34g/dL (31-37) Red Cell Distribution Width 12.8% (11.5-14.5) Platelet Count 426x10^3/uL (140-400) Neutrophils (%) (Auto) 88% (31-73) Lymphocytes (%) (Auto) 7% (24-48) Monocytes (%) (Auto) 4% (0-9) Eosinophils (%) (Auto) 0% (0-3) Basophils (%) (Auto) 1% (0-3) Neutrophils # (Auto) 19.5x10^3uL (1.8-7.7) Lymphocytes # (Auto) 1.5x10^3/uL (1.0-4.8) Monocytes # (Auto) 0.9x10^3/uL (0.0-1.1) Eosinophils # (Auto) 0.0x10^3/uL (0.0-0.7) Basophils # (Auto) 0.1x10^3/uL (0.0-0.2) Sodium Level 137mmol/L (136-145) Potassium Level 4.2mmol/L (3.5-5.1) Chloride Level 101mmol/L (98-107) Carbon Dioxide Level 23mmol/L (21-32) Anion Gap 13 (6-14) Blood Urea Nitrogen 8mg/dL (8-26) Creatinine 0.6mg/dL (0.7-1.3) Estimated GFR (Cockcroft-Gault) 173.6 Glucose Level 126mg/dL (70-99) Calcium Level 8.9mg/dL (8.5-10.1) Phosphorus Level 3.9mg/dL (2.6-4.7) Magnesium Level 2.1mg/dL (1.8-2.4) Glucose (Fingerstick) 126mg/dL (70-99) Review of Systems Review of Systems no fever ,chills, sob or chest pain Assessment and Plan Assessmemt and Plan Problems Medical Problems: (1) Abdominal pain Status: Acute (2) Pneumoperitoneum Status: Acute Problems: Comment Review of Relevant I have reviewed the following items crystal (where applicable) has been applied. Labs Laboratory Tests Test 09/07/16 16:47 09/07/16 23:15 09/08/16 03:55 09/08/16 05:17 Glucose (Fingerstick) 118mg/dL (70-99) 133mg/dL (70-99) 128mg/dL (70-99) White Blood Count 19.6x10^3/uL (4.0-11.0) Red Blood Count 3.91x10^6/uL (4.30-5.70) Hemoglobin 11.4g/dL (13.0-17.5) Hematocrit 35.3% (39.0-53.0) Mean Corpuscular Volume 90fL (79-100) Mean Corpuscular Hemoglobin 29pg (25-35) Mean Corpuscular Hemoglobin Concent 32g/dL (31-37) Red Cell Distribution Width 13.0% (11.5-14.5) Platelet Count 362x10^3/uL (140-400) Neutrophils (%) (Auto) 87% (31-73) Lymphocytes (%) (Auto) 8% (24-48) Monocytes (%) (Auto) 5% (0-9) Eosinophils (%) (Auto) 0% (0-3) Basophils (%) (Auto) 0% (0-3) Neutrophils # (Auto) 17.1x10^3uL (1.8-7.7) Lymphocytes # (Auto) 1.5x10^3/uL (1.0-4.8) Monocytes # (Auto) 0.9x10^3/uL (0.0-1.1) Eosinophils # (Auto) 0.1x10^3/uL (0.0-0.7) Basophils # (Auto) 0.0x10^3/uL (0.0-0.2) Sodium Level 132mmol/L (136-145) Potassium Level 4.2mmol/L (3.5-5.1) Chloride Level 100mmol/L (98-107) Carbon Dioxide Level 25mmol/L (21-32) Anion Gap 7 (6-14) Blood Urea Nitrogen 9mg/dL (8-26) Creatinine 0.5mg/dL (0.7-1.3) Estimated GFR (Cockcroft-Gault) 214.2 Glucose Level 132mg/dL (70-99) Calcium Level 8.4mg/dL (8.5-10.1) Phosphorus Level 3.7mg/dL (2.6-4.7) Magnesium Level 2.1mg/dL (1.8-2.4) Test 09/08/16 11:22 09/08/16 15:15 09/08/16 18:07 09/08/16 23:04 Glucose (Fingerstick) 109mg/dL (70-99) 103mg/dL (70-99) 111mg/dL (70-99) Vancomycin Level Trough 5.1mcg/mL (10.0-20.0) Vancomycin Last Dose Date 09/08/16 Vancomycin Last Dose Time 0700 Test 09/09/16 05:03 09/09/16 10:50 09/09/16 11:34 Glucose (Fingerstick) 125mg/dL (70-99) 126mg/dL (70-99) White Blood Count 22.1x10^3/uL (4.0-11.0) Red Blood Count 4.33x10^6/uL (4.30-5.70) Hemoglobin 12.7g/dL (13.0-17.5) Hematocrit 37.7% (39.0-53.0) Mean Corpuscular Volume 87fL (79-100) Mean Corpuscular Hemoglobin 30pg (25-35) Mean Corpuscular Hemoglobin Concent 34g/dL (31-37) Red Cell Distribution Width 12.8% (11.5-14.5) Platelet Count 426x10^3/uL (140-400) Neutrophils (%) (Auto) 88% (31-73) Lymphocytes (%) (Auto) 7% (24-48) Monocytes (%) (Auto) 4% (0-9) Eosinophils (%) (Auto) 0% (0-3) Basophils (%) (Auto) 1% (0-3) Neutrophils # (Auto) 19.5x10^3uL (1.8-7.7) Lymphocytes # (Auto) 1.5x10^3/uL (1.0-4.8) Monocytes # (Auto) 0.9x10^3/uL (0.0-1.1) Eosinophils # (Auto) 0.0x10^3/uL (0.0-0.7) Basophils # (Auto) 0.1x10^3/uL (0.0-0.2) Sodium Level 137mmol/L (136-145) Potassium Level 4.2mmol/L (3.5-5.1) Chloride Level 101mmol/L (98-107) Carbon Dioxide Level 23mmol/L (21-32) Anion Gap 13 (6-14) Blood Urea Nitrogen 8mg/dL (8-26) Creatinine 0.6mg/dL (0.7-1.3) Estimated GFR (Cockcroft-Gault) 173.6 Glucose Level 126mg/dL (70-99) Calcium Level 8.9mg/dL (8.5-10.1) Phosphorus Level 3.9mg/dL (2.6-4.7) Magnesium Level 2.1mg/dL (1.8-2.4) Laboratory Tests Test 09/08/16 15:15 09/08/16 18:07 09/08/16 23:04 09/09/16 05:03 Vancomycin Level Trough 5.1mcg/mL (10.0-20.0) Vancomycin Last Dose Date 09/08/16 Vancomycin Last Dose Time 0700 Glucose (Fingerstick) 103mg/dL (70-99) 111mg/dL (70-99) 125mg/dL (70-99) Test 09/09/16 10:50 09/09/16 11:34 White Blood Count 22.1x10^3/uL (4.0-11.0) Red Blood Count 4.33x10^6/uL (4.30-5.70) Hemoglobin 12.7g/dL (13.0-17.5) Hematocrit 37.7% (39.0-53.0) Mean Corpuscular Volume 87fL (79-100) Mean Corpuscular Hemoglobin 30pg (25-35) Mean Corpuscular Hemoglobin Concent 34g/dL (31-37) Red Cell Distribution Width 12.8% (11.5-14.5) Platelet Count 426x10^3/uL (140-400) Neutrophils (%) (Auto) 88% (31-73) Lymphocytes (%) (Auto) 7% (24-48) Monocytes (%) (Auto) 4% (0-9) Eosinophils (%) (Auto) 0% (0-3) Basophils (%) (Auto) 1% (0-3) Neutrophils # (Auto) 19.5x10^3uL (1.8-7.7) Lymphocytes # (Auto) 1.5x10^3/uL (1.0-4.8) Monocytes # (Auto) 0.9x10^3/uL (0.0-1.1) Eosinophils # (Auto) 0.0x10^3/uL (0.0-0.7) Basophils # (Auto) 0.1x10^3/uL (0.0-0.2) Sodium Level 137mmol/L (136-145) Potassium Level 4.2mmol/L (3.5-5.1) Chloride Level 101mmol/L (98-107) Carbon Dioxide Level 23mmol/L (21-32) Anion Gap 13 (6-14) Blood Urea Nitrogen 8mg/dL (8-26) Creatinine 0.6mg/dL (0.7-1.3) Estimated GFR (Cockcroft-Gault) 173.6 Glucose Level 126mg/dL (70-99) Calcium Level 8.9mg/dL (8.5-10.1) Phosphorus Level 3.9mg/dL (2.6-4.7) Magnesium Level 2.1mg/dL (1.8-2.4) Glucose (Fingerstick) 126mg/dL (70-99) Microbiology 08/30/16 Blood Culture - Final, Complete NO GROWTH AFTER 5 DAYS 08/30/16 Urine Culture - Final, Complete 08/30/16 Urine Culture Result 1 (TOAN) - Final, Complete 09/04/16 Gram Stain - Final, Complete Medications Current Medications Sodium Chloride (Iv Sodium Chloride 0.9% 1000ml Bag) 1,000 ml @ 1,000 mls/hr Q1H IV Last administered on 08/30/16 19:58; Start 08/30/16 at 19:45; Stop 07/06 at 20:44; Status DC Morphine Sulfate 4 mg 1X ONCE IV Last administered on 08/30/16 19:58; Start 08/30/16 at 19:45; Stop 08/30/16 at 19:46; Status DC Ondansetron HCl (Zofran) 4 mg 1X ONCE IV Last administered on 08/30/16 19:57 ; Start 08/30/16 at 19:45; Stop 08/30/16 at 19:46; Status DC Iohexol (Omnipaque 300 Mg/ml) 75 ml 1X ONCE IV Last administered on 08/30/16 20:57; Start 08/30/16 at 20:00; Stop 08/30/16 at 20:01; Status DC Morphine Sulfate 4 mg 1X ONCE IV Last administered on 08/30/16 22:22; Start 08/30/16 at 21:45; Stop 08/30/16 at 21:46; Status DC Piperacillin Sod/ Tazobactam Sod 1 each 1 each PRN DAILY PRN MC SEE COMMENTS; Start 08/30/16 at 21:45; Stop 09/02/16 at 13:43; Status DC Piperacillin Sod/ Tazobactam Sod/ Sodium Chloride (Zosyn/Iv Sodium Chloride 0.9 % 50ml) 50 ml @ 100 mls/hr Q6HRS IV Last administered on 09/04/16 05:07; Start 08/30/16 at 22:00; Stop 09/04/16 at 10:30; Status DC Ondansetron HCl (Zofran) 4 mg PRN Q8HRS PRN IV NAUSEA/VOMITING; Start 08/30/16 at 22:30; Stop 08/31/16 at 22:29; Status DC Morphine Sulfate 4 mg 4 mg PRN Q2HR PRN IV PAIN Last administered on 08/30/16 23:16; Start 08/30/16 at 22:30; Stop 08/31/16 at 22:29; Status DC Sodium Chloride (Iv Sodium Chloride 0.9% 1000ml Bag) 1,000 ml @ 125 mls/hr Q8H IV Last administered on 08/31/16 09:13; Start 08/30/16 at 22:30; Stop at 13:05; Status DC Acetaminophen 650 mg 650 mg PRN Q4HRS PRN PO FEVER Last administered on 23:15; Start 08/30/16 at 22:30; Stop 08/31/16 at 22:29; Status DC Hydromorphone HCl 30 ml @ 0 mls/hr CONT PRN PRN IV PROTOCOL Last administered on 09/08/16 04:45; Start 08/30/16 at 23:30 Potassium Chloride/Dextrose/ Sod Cl 1,000 ml @ 100 mls/hr Q10H IV Last administered on 09/01/16 03:52; Start 08/31/16 at 13:15; Stop 09/01/16 at 14:37 ; Status DC Sodium Chloride 1,000 ml @ 1,000 mls/hr 1X ONCE IV Last administered on 14:24; Start 08/31/16 at 13:15; Stop 08/31/16 at 14:14; Status DC Albumin Human (Plasmanate) 500 ml @ 125 mls/hr 1X ONCE IV Last administered on 08/31/16 17:21; Start 08/31/16 at 17:00; Stop 08/31/16 at 20:59; Status DC Ondansetron HCl 4 mg 4 mg PRN Q6HRS PRN IV NAUSEA/VOMITING; Start 08/31/16 at 22:45 Amino Acids/ Glycerin/ Electrolytes (Procalamine) 1,000 ml @ 100 mls/hr Q10H IV Last administered on 09/05/16 10:00; Start 09/01/16 at 14:45; Stop at 21:59; Status DC Acetaminophen (Tylenol) 650 mg PRN Q4HRS PRN NC MILD PAIN / TEMP Last administered on 09/03/16 20:39; Start 09/01/16 at 20:30 Lorazepam (Ativan) 1 mg PRN Q4HRS PRN IV ANXIETY / AGITATION Last administered on 09/03/16 17:57; Start 09/02/16 at 10:30 Saliva Substitute (Biotene Moisturizing Mouth) 2 spray PRN Q15MIN PRN PO DRY MOUTH Last administered on 09/02/16 18:13; Start 09/02/16 at 10:30 Iohexol (Omnipaque 240 Mg/ml) 30 ml 1X ONCE PO Last administered on 09/03/16 10:18; Start 09/03/16 at 09:00; Stop 09/03/16 at 09:01; Status DC Iohexol (Omnipaque 300 Mg/ml) 75 ml 1X ONCE IV Last administered on 09/03/16 10:18; Start 09/03/16 at 09:00; Stop 09/03/16 at 09:01; Status DC Info (Do NOT chart on this entry -- for MONITORING) 1 each PRN DAILY PRN MC SEE COMMENTS; Start 09/03/16 at 08:45; Stop 09/05/16 at 08:44; Status DC Info 1 each PRN DAILY PRN MC SEE COMMENTS Last administered on 09/08/16 12:51 ; Start 09/04/16 at 15:00 Midazolam HCl (Versed) 5 mg STK-MED ONCE .ROUTE ; Start 09/04/16 at 09:54; Stop 09/04/16 at 09:55; Status DC Fentanyl Citrate (Fentanyl 5ml Vial) 250 mcg STK-MED ONCE .ROUTE ; Start at 09:54; Stop 09/04/16 at 09:55; Status DC Lidocaine/Sodium Bicarbonate 20 ml 20 ml STK-MED ONCE IJ ; Start 09/04/16 at 09: 55; Stop 09/04/16 at 09:56; Status DC Meropenem 1 gm/ Sodium Chloride 100 ml @ 200 mls/hr Q8HRS IV Last administered on 09/09/16 14:17; Start 09/04/16 at 14:00 Fluconazole/ Sodium Chloride (Diflucan 400mg/ 200ml Premix) 200 ml @ 100 mls/ hr Q24H IV Last administered on 09/09/16 11:14; Start 09/04/16 at 11:00 Lidocaine/Sodium Bicarbonate (Buffered Lidocaine 1%) 3 ml 1X ONCE IJ Last administered on 09/04/16 10:49; Start 09/04/16 at 10:45; Stop 09/04/16 at 10:48 ; Status DC Midazolam HCl (Versed) 0.5 mg 1X ONCE IV Last administered on 09/04/16 10:50 ; Start 09/04/16 at 10:45; Stop 09/04/16 at 10:48; Status DC Fentanyl Citrate 100 mcg 100 mcg 1X ONCE IV Last administered on 09/04/16 10: 50; Start 09/04/16 at 10:45; Stop 09/04/16 at 10:48; Status DC Sodium Chloride 90 meq/Potassium Chloride 50 meq/ Potassium Phosphate 13.6 mmol/ Magnesium Sulfate 10 meq/ Calcium Gluconate 10 meq/ Multivitamins/ Minerals 10 ml/ Chromium/Copper/ Manganese/Seleni/ Zn 1 ml/Total Parenteral Nutrition/Amino Acids/Dextrose/ Fat Emulsion Intravenous 1,512 ml @ 63 mls/hr TPN CONT IV Last administered on 09/05/16 20:50; Start 09/05/16 at 22:00; Stop 09/06/16 at 21:59; Status DC Levofloxacin/ Dextrose 150 ml @ 100 mls/hr 1X ONCE IV Last administered on 09:00; Start 09/06/16 at 09:00; Stop 09/06/16 at 10:29; Status DC Sodium Chloride/ Potassium Chloride/ Potassium Phosphate/ Magnesium Sulfate/ Calcium Gluconate/ Multivitamins/ Minerals/Chromium/ Copper/Manganese/ Seleni/Zn /Total Parenteral Nutrition/Amino Acids/Dextrose/ Fat Emulsion Intravenous ( Sodium Chloride/ Potassium Phospha... 1,512 ml @ 63 mls/hr TPN CONT IV Last administered on 09/06/16 21:49; Start 09/06/16 at 22:00; Stop 09/07/16 at 21:59 ; Status DC Alteplase, Recombinant (Cathflo) 2 mg 1X ONCE INT CAT Last administered on 20:43; Start 09/07/16 at 10:00; Stop 09/07/16 at 10:01; Status DC Vancomycin HCl (Vanco Per Pharmacy) 1 each PRN DAILY PRN MC SEE COMMENTS Last administered on 09/08/16 16:02; Start 09/07/16 at 10:30 Gentamicin Sulfate 1 each 1 each PRN DAILY PRN MC SEE COMMENTS; Start 09/07/16 at 10:15; Stop 09/07/16 at 13:00; Status DC Vancomycin HCl 2 gm/Sodium Chloride 500 ml @ 250 mls/hr 1X ONCE IV Last administered on 09/07/16 14:58; Start 09/07/16 at 11:00; Stop 09/07/16 at 12:59 ; Status DC Gentamicin Sulfate 500 mg/ Sodium Chloride 112.5 ml @ 112.5 mls/ hr 1X ONCE IV Last administered on 09/07/16 12:52; Start 09/07/16 at 11:00; Stop at 11:59; Status DC Sodium Chloride 90 meq/Potassium Chloride 50 meq/ Potassium Phosphate 13.6 mmol/ Magnesium Sulfate 10 meq/ Calcium Gluconate 10 meq/ Multivitamins/ Minerals 10 ml/ Chromium/Copper/ Manganese/Seleni/ Zn 1 ml/Total Parenteral Nutrition/Amino Acids/Dextrose/ Fat Emulsion Intravenous 1,512 ml @ 63 mls/hr TPN CONT IV Last administered on 09/07/16 21:41; Start 09/07/16 at 22:00; Stop 09/08/16 at 21:59; Status DC Vancomycin HCl/ Sodium Chloride (Iv Sodium Chloride 0.9% 250ml) 250 ml @ 167 mls/hr Q8H IV Last administered on 09/08/16 05:39; Start 09/07/16 at 23:00; Stop 09/08/16 at 15:54; Status DC Vancomycin HCl 1 each 1 each 1X ONCE MC Last administered on 09/08/16 14:30; Start 09/08/16 at 14:30; Stop 09/08/16 at 14:31; Status DC Sodium Chloride/ Potassium Chloride/ Potassium Phosphate/ Magnesium Sulfate/ Calcium Gluconate/ Multivitamins/ Minerals/Chromium/ Copper/Manganese/ Seleni/Zn /Total Parenteral Nutrition/Amino Acids/Dextrose/ Fat Emulsion Intravenous ( Sodium Chloride/ Potassium Phospha... 1,512 ml @ 63 mls/hr TPN CONT IV Last administered on 09/08/16 22:23; Start 09/08/16 at 22:00; Stop 09/09/16 at 21:59 Pantoprazole Sodium 40 mg 40 mg DAILYAC IVP Last administered on 09/09/16 07: 46; Start 09/08/16 at 15:00 Vancomycin HCl/ Sodium Chloride (Iv Sodium Chloride 0.9% 250ml) 250 ml @ 167 mls/hr Q6HRS IV Last administered on 09/09/16 12:22; Start 09/08/16 at 17:00 Vitals/I & O Vital Sign - Last 24 Hours 09/08/16 09/08/16 09/08/16 09/08/16 15:00 19:00 20:05 23:00 Temp 98.5 100.0 99.5 98.5 100.0 99.5 Pulse 90 100 108 Resp 16 20 20 B/P 123/81 130/78 118/79 Pulse Ox 98 97 95 O2 Delivery Room Air Room Air Room Air Room Air 09/09/16 09/09/16 09/09/16 09/09/16 03:32 07:20 07:45 08:21 Temp 98.8 98.8 98.6 98.8 98.8 98.6 Pulse 100 100 88 Resp 20 16 B/P 118/73 118/73 118/74 Pulse Ox 97 97 96 O2 Delivery Room Air Room Air Room Air Room Air O2 Flow Rate 0.5 09/09/16 11:22 Temp 98.2 98.2 Pulse 95 Resp 16 B/P 117/87 Pulse Ox 96 O2 Delivery Room Air Intake and Output 09/08/16 09/08/16 09/09/16 15:00 23:00 07:00 Intake Total 1635 ml 350 ml Output Total 15 ml 15 ml 410 ml Balance -15 ml 1620 ml -60 ml MARKY CALDWELL MD Sep 09, 2016 14:36
[2016-09-09 15:31] LABS: PLT ESTIMATE INCREASED (ADEQUATE)
[2016-09-09] MEDS ORDERED: [UNRECOGNIZED DRUG - OTHER] IV SCH ×10 (22:00)
[2016-09-09] MEDS ORDERED: TOTAL PARENTERAL NUTRITION IV SCH ×10 (22:00)
[2016-09-09] MEDS ORDERED: DEXTROSE 70% IV SCH ×10 (22:00)
[2016-09-09] MEDS ORDERED: AMINO ACIDS IV SCH ×10 (22:00)
[2016-09-10] MEDS: VANCOMYCIN 1.25 GM in IV NORMAL SALINE 250ML 250 ML IV SCH ×5 (00:18→23:38)
[2016-09-10 02:40] VITALS: BP 125/74
[2016-09-10] MEDS: MEROPENEM 1 GM in IV NORMAL SALINE 100ML 100 ML IV SCH ×3 (06:28→21:57)
[2016-09-10] MEDS: PANTOPRAZOLE IV PUSH 40 MG VIAL. IVP SCH (07:27)
[2016-09-10 08:00] VITALS: BP 120/75
[2016-09-10] MEDS: FLUCONAZOLE 400MG/200ML PREMIX 200 ML IV SCH (10:30)
[2016-09-10 11:15] VITALS: BP 111/77
--- NOTE | 2016-09-10 13:32 | PDOC ---
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 fu with id, ir, sx, gi 2. IR abscess drainage on 09/04 3. abx changed to meropenum and flagyl as per ID on 09/04, levaquin 09/05 x1, vanco 09/07 x1 cont BULK DRIVER for pain control, cont since NPO dvt ppx TPN NPO, NGT dced as per sx. 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 production much, feels ok Vitals Vitals Vital Signs Date Time Temp Pulse Resp B/P Pulse Ox O2 Delivery O2 Flow Rate FiO2 09/10/16 11:15 99.9 111 20 111/77 95 Room Air 99.9 09/09/16 07:20 0.5 Physical Exam General: Alert, Oriented X3, Cooperative, No acute distress Heart: Regular rate, No murmurs Lungs: Clear Abdomen: Soft, Other (drain site tenderness, scant drain output ) Extremities: No clubbing, No cyanosis, No edema, Normal pulses Skin: No rashes, No breakdown Labs LABS Laboratory Tests Test 09/09/16 16:38 09/10/16 00:05 09/10/16 06:14 09/10/16 11:40 Glucose (Fingerstick) 122mg/dL (70-99) 118mg/dL (70-99) 130mg/dL (70-99) 119mg/dL (70-99) Review of Systems Review of Systems no fever, chills, sob or chest pain Assessment and Plan Assessmemt and Plan Problems Medical Problems: (1) Abdominal pain Status: Acute (2) Pneumoperitoneum Status: Acute Problems: Comment Review of Relevant I have reviewed the following items crystal (where applicable) has been applied. Labs Laboratory Tests Test 09/08/16 15:15 09/08/16 18:07 09/08/16 23:04 09/09/16 05:03 Vancomycin Level Trough 5.1mcg/mL (10.0-20.0) Vancomycin Last Dose Date 09/08/16 Vancomycin Last Dose Time 0700 Glucose (Fingerstick) 103mg/dL (70-99) 111mg/dL (70-99) 125mg/dL (70-99) Test 09/09/16 10:50 09/09/16 11:34 09/09/16 16:38 09/10/16 00:05 White Blood Count 22.1x10^3/uL (4.0-11.0) Red Blood Count 4.33x10^6/uL (4.30-5.70) Hemoglobin 12.7g/dL (13.0-17.5) Hematocrit 37.7% (39.0-53.0) Mean Corpuscular Volume 87fL (79-100) Mean Corpuscular Hemoglobin 30pg (25-35) Mean Corpuscular Hemoglobin Concent 34g/dL (31-37) Red Cell Distribution Width 12.8% (11.5-14.5) Platelet Count 426x10^3/uL (140-400) Neutrophils (%) (Auto) 88% (31-73) Lymphocytes (%) (Auto) 7% (24-48) Monocytes (%) (Auto) 4% (0-9) Eosinophils (%) (Auto) 0% (0-3) Basophils (%) (Auto) 1% (0-3) Neutrophils # (Auto) 19.5x10^3uL (1.8-7.7) Lymphocytes # (Auto) 1.5x10^3/uL (1.0-4.8) Monocytes # (Auto) 0.9x10^3/uL (0.0-1.1) Eosinophils # (Auto) 0.0x10^3/uL (0.0-0.7) Basophils # (Auto) 0.1x10^3/uL (0.0-0.2) Segmented Neutrophils % 82% (35-66) Band Neutrophils % 5% (0-9) Lymphocytes % 10% (24-48) Atypical Lymphocytes % (Manual) 1% (0-0) Monocytes % 2% (0-10) Platelet Estimate Increased (ADEQUATE) Giant Platelets Occ Sodium Level 137mmol/L (136-145) Potassium Level 4.2mmol/L (3.5-5.1) Chloride Level 101mmol/L (98-107) Carbon Dioxide Level 23mmol/L (21-32) Anion Gap 13 (6-14) Blood Urea Nitrogen 8mg/dL (8-26) Creatinine 0.6mg/dL (0.7-1.3) Estimated GFR (Cockcroft-Gault) 173.6 Glucose Level 126mg/dL (70-99) Calcium Level 8.9mg/dL (8.5-10.1) Phosphorus Level 3.9mg/dL (2.6-4.7) Magnesium Level 2.1mg/dL (1.8-2.4) Glucose (Fingerstick) 126mg/dL (70-99) 122mg/dL (70-99) 118mg/dL (70-99) Test 09/10/16 06:14 09/10/16 11:40 Glucose (Fingerstick) 130mg/dL (70-99) 119mg/dL (70-99) Laboratory Tests Test 09/09/16 16:38 09/10/16 00:05 09/10/16 06:14 09/10/16 11:40 Glucose (Fingerstick) 122mg/dL (70-99) 118mg/dL (70-99) 130mg/dL (70-99) 119mg/dL (70-99) Microbiology 08/30/16 Blood Culture - Final, Complete NO GROWTH AFTER 5 DAYS 08/30/16 Urine Culture - Final, Complete 08/30/16 Urine Culture Result 1 (TOAN) - Final, Complete 09/04/16 Gram Stain - Final, Complete Medications Current Medications Sodium Chloride (Iv Sodium Chloride 0.9% 1000ml Bag) 1,000 ml @ 1,000 mls/hr Q1H IV Last administered on 08/30/16 19:58; Start 08/30/16 at 19:45; Stop 07/06 at 20:44; Status DC Morphine Sulfate 4 mg 1X ONCE IV Last administered on 08/30/16 19:58; Start 08/30/16 at 19:45; Stop 08/30/16 at 19:46; Status DC Ondansetron HCl (Zofran) 4 mg 1X ONCE IV Last administered on 08/30/16 19:57 ; Start 08/30/16 at 19:45; Stop 08/30/16 at 19:46; Status DC Iohexol (Omnipaque 300 Mg/ml) 75 ml 1X ONCE IV Last administered on 08/30/16 20:57; Start 08/30/16 at 20:00; Stop 08/30/16 at 20:01; Status DC Morphine Sulfate 4 mg 1X ONCE IV Last administered on 08/30/16 22:22; Start 08/30/16 at 21:45; Stop 08/30/16 at 21:46; Status DC Piperacillin Sod/ Tazobactam Sod 1 each 1 each PRN DAILY PRN MC SEE COMMENTS; Start 08/30/16 at 21:45; Stop 09/02/16 at 13:43; Status DC Piperacillin Sod/ Tazobactam Sod/ Sodium Chloride (Zosyn/Iv Sodium Chloride 0.9 % 50ml) 50 ml @ 100 mls/hr Q6HRS IV Last administered on 09/04/16 05:07; Start 08/30/16 at 22:00; Stop 09/04/16 at 10:30; Status DC Ondansetron HCl (Zofran) 4 mg PRN Q8HRS PRN IV NAUSEA/VOMITING; Start 08/30/16 at 22:30; Stop 08/31/16 at 22:29; Status DC Morphine Sulfate 4 mg 4 mg PRN Q2HR PRN IV PAIN Last administered on 08/30/16 23:16; Start 08/30/16 at 22:30; Stop 08/31/16 at 22:29; Status DC Sodium Chloride (Iv Sodium Chloride 0.9% 1000ml Bag) 1,000 ml @ 125 mls/hr Q8H IV Last administered on 08/31/16 09:13; Start 08/30/16 at 22:30; Stop at 13:05; Status DC Acetaminophen 650 mg 650 mg PRN Q4HRS PRN PO FEVER Last administered on 23:15; Start 08/30/16 at 22:30; Stop 08/31/16 at 22:29; Status DC Hydromorphone HCl 30 ml @ 0 mls/hr CONT PRN PRN IV PROTOCOL Last administered on 09/08/16 04:45; Start 08/30/16 at 23:30 Potassium Chloride/Dextrose/ Sod Cl 1,000 ml @ 100 mls/hr Q10H IV Last administered on 09/01/16 03:52; Start 08/31/16 at 13:15; Stop 09/01/16 at 14:37 ; Status DC Sodium Chloride 1,000 ml @ 1,000 mls/hr 1X ONCE IV Last administered on 14:24; Start 08/31/16 at 13:15; Stop 08/31/16 at 14:14; Status DC Albumin Human (Plasmanate) 500 ml @ 125 mls/hr 1X ONCE IV Last administered on 08/31/16 17:21; Start 08/31/16 at 17:00; Stop 08/31/16 at 20:59; Status DC Ondansetron HCl 4 mg 4 mg PRN Q6HRS PRN IV NAUSEA/VOMITING; Start 08/31/16 at 22:45 Amino Acids/ Glycerin/ Electrolytes (Procalamine) 1,000 ml @ 100 mls/hr Q10H IV Last administered on 09/05/16 10:00; Start 09/01/16 at 14:45; Stop at 21:59; Status DC Acetaminophen (Tylenol) 650 mg PRN Q4HRS PRN MO MILD PAIN / TEMP Last administered on 09/03/16 20:39; Start 09/01/16 at 20:30 Lorazepam (Ativan) 1 mg PRN Q4HRS PRN IV ANXIETY / AGITATION Last administered on 09/03/16 17:57; Start 09/02/16 at 10:30 Saliva Substitute (Biotene Moisturizing Mouth) 2 spray PRN Q15MIN PRN PO DRY MOUTH Last administered on 09/02/16 18:13; Start 09/02/16 at 10:30 Iohexol (Omnipaque 240 Mg/ml) 30 ml 1X ONCE PO Last administered on 09/03/16 10:18; Start 09/03/16 at 09:00; Stop 09/03/16 at 09:01; Status DC Iohexol (Omnipaque 300 Mg/ml) 75 ml 1X ONCE IV Last administered on 09/03/16 10:18; Start 09/03/16 at 09:00; Stop 09/03/16 at 09:01; Status DC Info (Do NOT chart on this entry -- for MONITORING) 1 each PRN DAILY PRN MC SEE COMMENTS; Start 09/03/16 at 08:45; Stop 09/05/16 at 08:44; Status DC Info 1 each PRN DAILY PRN MC SEE COMMENTS Last administered on 09/08/16 12:51 ; Start 09/04/16 at 15:00 Midazolam HCl (Versed) 5 mg STK-MED ONCE .ROUTE ; Start 09/04/16 at 09:54; Stop 09/04/16 at 09:55; Status DC Fentanyl Citrate (Fentanyl 5ml Vial) 250 mcg STK-MED ONCE .ROUTE ; Start at 09:54; Stop 09/04/16 at 09:55; Status DC Lidocaine/Sodium Bicarbonate 20 ml 20 ml STK-MED ONCE IJ ; Start 09/04/16 at 09: 55; Stop 09/04/16 at 09:56; Status DC Meropenem 1 gm/ Sodium Chloride 100 ml @ 200 mls/hr Q8HRS IV Last administered on 09/10/16 06:28; Start 09/04/16 at 14:00 Fluconazole/ Sodium Chloride (Diflucan 400mg/ 200ml Premix) 200 ml @ 100 mls/ hr Q24H IV Last administered on 09/10/16 10:30; Start 09/04/16 at 11:00 Lidocaine/Sodium Bicarbonate (Buffered Lidocaine 1%) 3 ml 1X ONCE IJ Last administered on 09/04/16 10:49; Start 09/04/16 at 10:45; Stop 09/04/16 at 10:48 ; Status DC Midazolam HCl (Versed) 0.5 mg 1X ONCE IV Last administered on 09/04/16 10:50 ; Start 09/04/16 at 10:45; Stop 09/04/16 at 10:48; Status DC Fentanyl Citrate 100 mcg 100 mcg 1X ONCE IV Last administered on 09/04/16 10: 50; Start 09/04/16 at 10:45; Stop 09/04/16 at 10:48; Status DC Sodium Chloride 90 meq/Potassium Chloride 50 meq/ Potassium Phosphate 13.6 mmol/ Magnesium Sulfate 10 meq/ Calcium Gluconate 10 meq/ Multivitamins/ Minerals 10 ml/ Chromium/Copper/ Manganese/Seleni/ Zn 1 ml/Total Parenteral Nutrition/Amino Acids/Dextrose/ Fat Emulsion Intravenous 1,512 ml @ 63 mls/hr TPN CONT IV Last administered on 09/05/16 20:50; Start 09/05/16 at 22:00; Stop 09/06/16 at 21:59; Status DC Levofloxacin/ Dextrose 150 ml @ 100 mls/hr 1X ONCE IV Last administered on 09:00; Start 09/06/16 at 09:00; Stop 09/06/16 at 10:29; Status DC Sodium Chloride/ Potassium Chloride/ Potassium Phosphate/ Magnesium Sulfate/ Calcium Gluconate/ Multivitamins/ Minerals/Chromium/ Copper/Manganese/ Seleni/Zn /Total Parenteral Nutrition/Amino Acids/Dextrose/ Fat Emulsion Intravenous ( Sodium Chloride/ Potassium Phospha... 1,512 ml @ 63 mls/hr TPN CONT IV Last administered on 09/06/16 21:49; Start 09/06/16 at 22:00; Stop 09/07/16 at 21:59 ; Status DC Alteplase, Recombinant (Cathflo) 2 mg 1X ONCE INT CAT Last administered on 20:43; Start 09/07/16 at 10:00; Stop 09/07/16 at 10:01; Status DC Vancomycin HCl (Vanco Per Pharmacy) 1 each PRN DAILY PRN MC SEE COMMENTS Last administered on 09/08/16 16:02; Start 09/07/16 at 10:30 Gentamicin Sulfate 1 each 1 each PRN DAILY PRN MC SEE COMMENTS; Start 09/07/16 at 10:15; Stop 09/07/16 at 13:00; Status DC Vancomycin HCl 2 gm/Sodium Chloride 500 ml @ 250 mls/hr 1X ONCE IV Last administered on 09/07/16 14:58; Start 09/07/16 at 11:00; Stop 09/07/16 at 12:59 ; Status DC Gentamicin Sulfate 500 mg/ Sodium Chloride 112.5 ml @ 112.5 mls/ hr 1X ONCE IV Last administered on 09/07/16 12:52; Start 09/07/16 at 11:00; Stop at 11:59; Status DC Sodium Chloride 90 meq/Potassium Chloride 50 meq/ Potassium Phosphate 13.6 mmol/ Magnesium Sulfate 10 meq/ Calcium Gluconate 10 meq/ Multivitamins/ Minerals 10 ml/ Chromium/Copper/ Manganese/Seleni/ Zn 1 ml/Total Parenteral Nutrition/Amino Acids/Dextrose/ Fat Emulsion Intravenous 1,512 ml @ 63 mls/hr TPN CONT IV Last administered on 09/07/16 21:41; Start 09/07/16 at 22:00; Stop 09/08/16 at 21:59; Status DC Vancomycin HCl/ Sodium Chloride (Iv Sodium Chloride 0.9% 250ml) 250 ml @ 167 mls/hr Q8H IV Last administered on 09/08/16 05:39; Start 09/07/16 at 23:00; Stop 09/08/16 at 15:54; Status DC Vancomycin HCl 1 each 1 each 1X ONCE MC Last administered on 09/08/16 14:30; Start 09/08/16 at 14:30; Stop 09/08/16 at 14:31; Status DC Sodium Chloride/ Potassium Chloride/ Potassium Phosphate/ Magnesium Sulfate/ Calcium Gluconate/ Multivitamins/ Minerals/Chromium/ Copper/Manganese/ Seleni/Zn /Total Parenteral Nutrition/Amino Acids/Dextrose/ Fat Emulsion Intravenous ( Sodium Chloride/ Potassium Phospha... 1,512 ml @ 63 mls/hr TPN CONT IV Last administered on 09/08/16 22:23; Start 09/08/16 at 22:00; Stop 09/09/16 at 21:59 ; Status DC Pantoprazole Sodium 40 mg 40 mg DAILYAC IVP Last administered on 09/10/16 07: 27; Start 09/08/16 at 15:00 Vancomycin HCl 1.25 gm/Sodium Chloride 250 ml @ 167 mls/hr Q6HRS IV Last administered on 09/10/16 11:55; Start 09/08/16 at 17:00 Sodium Chloride 120 meq/Potassium Chloride 50 meq/ Potassium Phosphate 13.6 mmol /Magnesium Sulfate 10 meq/ Calcium Gluconate 10 meq/ Multivitamins/ Minerals 10 ml/ Chromium/Copper/ Manganese/Seleni/ Zn 1 ml/Total Parenteral Nutrition/Amino Acids/Dextrose/ Fat Emulsion Intravenous 1,512 ml @ 63 mls/hr TPN CONT IV Last administered on 09/09/16 22:37; Start 09/09/16 at 22:00; Stop 09/10/16 at 21:59 Sodium Chloride/ Potassium Chloride/ Potassium Phosphate/ Magnesium Sulfate/ Calcium Gluconate/ Multivitamins/ Minerals/Chromium/ Copper/Manganese/ Seleni/Zn /Total Parenteral Nutrition/Amino Acids/Dextrose/ Fat Emulsion Intravenous ( Sodium Chloride/ Potassium Phospha... 1,512 ml @ 63 mls/hr TPN CONT IV ; Start 09/10/16 at 22:00; Stop 09/11/16 at 21:59 Vitals/I & O Vital Sign - Last 24 Hours 09/09/16 09/09/16 09/09/16 09/09/16 15:07 19:58 20:13 22:23 Temp 99.2 99.1 100.0 99.2 99.1 100.0 Pulse 111 109 100 Resp 16 16 16 B/P 113/82 113/85 120/79 Pulse Ox 96 96 95 O2 Delivery Room Air Room Air Room Air Room Air 09/10/16 09/10/16 09/10/16 09/10/16 02:40 07:35 08:00 11:15 Temp 99.7 99.9 99.9 99.7 99.9 99.9 Pulse 102 117 111 Resp 16 20 20 B/P 125/74 120/75 111/77 Pulse Ox 95 97 95 O2 Delivery Room Air Room Air Room Air Room Air Intake and Output 09/09/16 09/09/16 09/10/16 15:00 23:00 07:00 Intake Total 0 ml 50 ml 2661 ml Output Total 225 ml 200 ml Balance -225 ml -150 ml 2661 ml MARKY CALDWELL MD Sep 10, 2016 13:32
[2016-09-10] MEDS ORDERED: IOHEXOL 240 MG/ML 50ML VIAL. PO ONE (14:15)
[2016-09-10] MEDS ORDERED: IOHEXOL 300 MG/ML 75 ML VIAL IV ONE (14:15)
[2016-09-10] MEDS ORDERED: CONTRAST GIVEN MC PRN (14:30)
[2016-09-10 15:00] VITALS: BP 117/81
--- NOTE | 2016-09-10 15:02 | PDOC ---
PROGRESS NOTES Subjective Subjective pt feels about the same Objective Objective Vital Signs Date Time Temp Pulse Resp B/P Pulse Ox O2 Delivery O2 Flow Rate FiO2 09/10/16 11:15 99.9 111 20 111/77 95 Room Air 99.9 09/09/16 07:20 0.5 Intake and Output 09/10/16 07:00 Intake Total 2711 ml Output Total 425 ml Balance 2286 ml Intake Oral 50 ml IV Total 2661 ml Output Urine Total 425 ml # Voids 5 Physical Exam Abdomen: Soft (mildly tender RLQ) Heart: Normal S1 Extremities: No clubbing, No cyanosis General: Alert, Oriented X3, Cooperative HEENT: Atraumatic Neuro: Normal speech Psych/Mental Status: Mental status NL Assessment Assessment Problems Medical Problems: (1) Abdominal pain Status: Acute (2) Pneumoperitoneum Status: Acute Plan Plan of Care Continue abx, FU CT scan in AM Comment Review of Relevant I have reviewed the following items crystal (where applicable) has been applied. Labs Laboratory Tests Test 09/08/16 15:15 09/08/16 18:07 09/08/16 23:04 09/09/16 05:03 Vancomycin Level Trough 5.1mcg/mL (10.0-20.0) Vancomycin Last Dose Date 09/08/16 Vancomycin Last Dose Time 0700 Glucose (Fingerstick) 103mg/dL (70-99) 111mg/dL (70-99) 125mg/dL (70-99) Test 09/09/16 10:50 09/09/16 11:34 09/09/16 16:38 09/10/16 00:05 White Blood Count 22.1x10^3/uL (4.0-11.0) Red Blood Count 4.33x10^6/uL (4.30-5.70) Hemoglobin 12.7g/dL (13.0-17.5) Hematocrit 37.7% (39.0-53.0) Mean Corpuscular Volume 87fL (79-100) Mean Corpuscular Hemoglobin 30pg (25-35) Mean Corpuscular Hemoglobin Concent 34g/dL (31-37) Red Cell Distribution Width 12.8% (11.5-14.5) Platelet Count 426x10^3/uL (140-400) Neutrophils (%) (Auto) 88% (31-73) Lymphocytes (%) (Auto) 7% (24-48) Monocytes (%) (Auto) 4% (0-9) Eosinophils (%) (Auto) 0% (0-3) Basophils (%) (Auto) 1% (0-3) Neutrophils # (Auto) 19.5x10^3uL (1.8-7.7) Lymphocytes # (Auto) 1.5x10^3/uL (1.0-4.8) Monocytes # (Auto) 0.9x10^3/uL (0.0-1.1) Eosinophils # (Auto) 0.0x10^3/uL (0.0-0.7) Basophils # (Auto) 0.1x10^3/uL (0.0-0.2) Segmented Neutrophils % 82% (35-66) Band Neutrophils % 5% (0-9) Lymphocytes % 10% (24-48) Atypical Lymphocytes % (Manual) 1% (0-0) Monocytes % 2% (0-10) Platelet Estimate Increased (ADEQUATE) Giant Platelets Occ Sodium Level 137mmol/L (136-145) Potassium Level 4.2mmol/L (3.5-5.1) Chloride Level 101mmol/L (98-107) Carbon Dioxide Level 23mmol/L (21-32) Anion Gap 13 (6-14) Blood Urea Nitrogen 8mg/dL (8-26) Creatinine 0.6mg/dL (0.7-1.3) Estimated GFR (Cockcroft-Gault) 173.6 Glucose Level 126mg/dL (70-99) Calcium Level 8.9mg/dL (8.5-10.1) Phosphorus Level 3.9mg/dL (2.6-4.7) Magnesium Level 2.1mg/dL (1.8-2.4) Glucose (Fingerstick) 126mg/dL (70-99) 122mg/dL (70-99) 118mg/dL (70-99) Test 09/10/16 06:14 09/10/16 11:40 Glucose (Fingerstick) 130mg/dL (70-99) 119mg/dL (70-99) Laboratory Tests Test 09/09/16 16:38 09/10/16 00:05 09/10/16 06:14 09/10/16 11:40 Glucose (Fingerstick) 122mg/dL (70-99) 118mg/dL (70-99) 130mg/dL (70-99) 119mg/dL (70-99) Microbiology 08/30/16 Blood Culture - Final, Complete NO GROWTH AFTER 5 DAYS 08/30/16 Urine Culture - Final, Complete 08/30/16 Urine Culture Result 1 (TOAN) - Final, Complete 09/04/16 Gram Stain - Final, Complete Medications Current Medications Sodium Chloride (Iv Sodium Chloride 0.9% 1000ml Bag) 1,000 ml @ 1,000 mls/hr Q1H IV Last administered on 08/30/16 19:58; Start 08/30/16 at 19:45; Stop 07/06 at 20:44; Status DC Morphine Sulfate 4 mg 1X ONCE IV Last administered on 08/30/16 19:58; Start 08/30/16 at 19:45; Stop 08/30/16 at 19:46; Status DC Ondansetron HCl (Zofran) 4 mg 1X ONCE IV Last administered on 08/30/16 19:57 ; Start 08/30/16 at 19:45; Stop 08/30/16 at 19:46; Status DC Iohexol (Omnipaque 300 Mg/ml) 75 ml 1X ONCE IV Last administered on 08/30/16 20:57; Start 08/30/16 at 20:00; Stop 08/30/16 at 20:01; Status DC Morphine Sulfate 4 mg 1X ONCE IV Last administered on 08/30/16 22:22; Start 08/30/16 at 21:45; Stop 08/30/16 at 21:46; Status DC Piperacillin Sod/ Tazobactam Sod 1 each 1 each PRN DAILY PRN MC SEE COMMENTS; Start 08/30/16 at 21:45; Stop 09/02/16 at 13:43; Status DC Piperacillin Sod/ Tazobactam Sod/ Sodium Chloride (Zosyn/Iv Sodium Chloride 0.9 % 50ml) 50 ml @ 100 mls/hr Q6HRS IV Last administered on 09/04/16 05:07; Start 08/30/16 at 22:00; Stop 09/04/16 at 10:30; Status DC Ondansetron HCl (Zofran) 4 mg PRN Q8HRS PRN IV NAUSEA/VOMITING; Start 08/30/16 at 22:30; Stop 08/31/16 at 22:29; Status DC Morphine Sulfate 4 mg 4 mg PRN Q2HR PRN IV PAIN Last administered on 08/30/16 23:16; Start 08/30/16 at 22:30; Stop 08/31/16 at 22:29; Status DC Sodium Chloride (Iv Sodium Chloride 0.9% 1000ml Bag) 1,000 ml @ 125 mls/hr Q8H IV Last administered on 08/31/16 09:13; Start 08/30/16 at 22:30; Stop at 13:05; Status DC Acetaminophen 650 mg 650 mg PRN Q4HRS PRN PO FEVER Last administered on 23:15; Start 08/30/16 at 22:30; Stop 08/31/16 at 22:29; Status DC Hydromorphone HCl 30 ml @ 0 mls/hr CONT PRN PRN IV PROTOCOL Last administered on 09/08/16 04:45; Start 08/30/16 at 23:30 Potassium Chloride/Dextrose/ Sod Cl 1,000 ml @ 100 mls/hr Q10H IV Last administered on 09/01/16 03:52; Start 08/31/16 at 13:15; Stop 09/01/16 at 14:37 ; Status DC Sodium Chloride 1,000 ml @ 1,000 mls/hr 1X ONCE IV Last administered on 14:24; Start 08/31/16 at 13:15; Stop 08/31/16 at 14:14; Status DC Albumin Human (Plasmanate) 500 ml @ 125 mls/hr 1X ONCE IV Last administered on 08/31/16 17:21; Start 08/31/16 at 17:00; Stop 08/31/16 at 20:59; Status DC Ondansetron HCl 4 mg 4 mg PRN Q6HRS PRN IV NAUSEA/VOMITING; Start 08/31/16 at 22:45 Amino Acids/ Glycerin/ Electrolytes (Procalamine) 1,000 ml @ 100 mls/hr Q10H IV Last administered on 09/05/16 10:00; Start 09/01/16 at 14:45; Stop at 21:59; Status DC Acetaminophen (Tylenol) 650 mg PRN Q4HRS PRN AR MILD PAIN / TEMP Last administered on 09/03/16 20:39; Start 09/01/16 at 20:30 Lorazepam (Ativan) 1 mg PRN Q4HRS PRN IV ANXIETY / AGITATION Last administered on 09/03/16 17:57; Start 09/02/16 at 10:30 Saliva Substitute (Biotene Moisturizing Mouth) 2 spray PRN Q15MIN PRN PO DRY MOUTH Last administered on 09/02/16 18:13; Start 09/02/16 at 10:30 Iohexol (Omnipaque 240 Mg/ml) 30 ml 1X ONCE PO Last administered on 09/03/16 10:18; Start 09/03/16 at 09:00; Stop 09/03/16 at 09:01; Status DC Iohexol (Omnipaque 300 Mg/ml) 75 ml 1X ONCE IV Last administered on 09/03/16 10:18; Start 09/03/16 at 09:00; Stop 09/03/16 at 09:01; Status DC Info (Do NOT chart on this entry -- for MONITORING) 1 each PRN DAILY PRN MC SEE COMMENTS; Start 09/03/16 at 08:45; Stop 09/05/16 at 08:44; Status DC Info 1 each PRN DAILY PRN MC SEE COMMENTS Last administered on 09/08/16 12:51 ; Start 09/04/16 at 15:00 Midazolam HCl (Versed) 5 mg STK-MED ONCE .ROUTE ; Start 09/04/16 at 09:54; Stop 09/04/16 at 09:55; Status DC Fentanyl Citrate (Fentanyl 5ml Vial) 250 mcg STK-MED ONCE .ROUTE ; Start at 09:54; Stop 09/04/16 at 09:55; Status DC Lidocaine/Sodium Bicarbonate 20 ml 20 ml STK-MED ONCE IJ ; Start 09/04/16 at 09: 55; Stop 09/04/16 at 09:56; Status DC Meropenem 1 gm/ Sodium Chloride 100 ml @ 200 mls/hr Q8HRS IV Last administered on 09/10/16 14:35; Start 09/04/16 at 14:00 Fluconazole/ Sodium Chloride (Diflucan 400mg/ 200ml Premix) 200 ml @ 100 mls/ hr Q24H IV Last administered on 09/10/16 10:30; Start 09/04/16 at 11:00 Lidocaine/Sodium Bicarbonate (Buffered Lidocaine 1%) 3 ml 1X ONCE IJ Last administered on 09/04/16 10:49; Start 09/04/16 at 10:45; Stop 09/04/16 at 10:48 ; Status DC Midazolam HCl (Versed) 0.5 mg 1X ONCE IV Last administered on 09/04/16 10:50 ; Start 09/04/16 at 10:45; Stop 09/04/16 at 10:48; Status DC Fentanyl Citrate 100 mcg 100 mcg 1X ONCE IV Last administered on 09/04/16 10: 50; Start 09/04/16 at 10:45; Stop 09/04/16 at 10:48; Status DC Sodium Chloride 90 meq/Potassium Chloride 50 meq/ Potassium Phosphate 13.6 mmol/ Magnesium Sulfate 10 meq/ Calcium Gluconate 10 meq/ Multivitamins/ Minerals 10 ml/ Chromium/Copper/ Manganese/Seleni/ Zn 1 ml/Total Parenteral Nutrition/Amino Acids/Dextrose/ Fat Emulsion Intravenous 1,512 ml @ 63 mls/hr TPN CONT IV Last administered on 09/05/16 20:50; Start 09/05/16 at 22:00; Stop 09/06/16 at 21:59; Status DC Levofloxacin/ Dextrose 150 ml @ 100 mls/hr 1X ONCE IV Last administered on 09:00; Start 09/06/16 at 09:00; Stop 09/06/16 at 10:29; Status DC Sodium Chloride/ Potassium Chloride/ Potassium Phosphate/ Magnesium Sulfate/ Calcium Gluconate/ Multivitamins/ Minerals/Chromium/ Copper/Manganese/ Seleni/Zn /Total Parenteral Nutrition/Amino Acids/Dextrose/ Fat Emulsion Intravenous ( Sodium Chloride/ Potassium Phospha... 1,512 ml @ 63 mls/hr TPN CONT IV Last administered on 09/06/16 21:49; Start 09/06/16 at 22:00; Stop 09/07/16 at 21:59 ; Status DC Alteplase, Recombinant (Cathflo) 2 mg 1X ONCE INT CAT Last administered on 20:43; Start 09/07/16 at 10:00; Stop 09/07/16 at 10:01; Status DC Vancomycin HCl (Vanco Per Pharmacy) 1 each PRN DAILY PRN MC SEE COMMENTS Last administered on 09/08/16 16:02; Start 09/07/16 at 10:30 Gentamicin Sulfate 1 each 1 each PRN DAILY PRN MC SEE COMMENTS; Start 09/07/16 at 10:15; Stop 09/07/16 at 13:00; Status DC Vancomycin HCl 2 gm/Sodium Chloride 500 ml @ 250 mls/hr 1X ONCE IV Last administered on 09/07/16 14:58; Start 09/07/16 at 11:00; Stop 09/07/16 at 12:59 ; Status DC Gentamicin Sulfate 500 mg/ Sodium Chloride 112.5 ml @ 112.5 mls/ hr 1X ONCE IV Last administered on 09/07/16 12:52; Start 09/07/16 at 11:00; Stop at 11:59; Status DC Sodium Chloride 90 meq/Potassium Chloride 50 meq/ Potassium Phosphate 13.6 mmol/ Magnesium Sulfate 10 meq/ Calcium Gluconate 10 meq/ Multivitamins/ Minerals 10 ml/ Chromium/Copper/ Manganese/Seleni/ Zn 1 ml/Total Parenteral Nutrition/Amino Acids/Dextrose/ Fat Emulsion Intravenous 1,512 ml @ 63 mls/hr TPN CONT IV Last administered on 09/07/16 21:41; Start 09/07/16 at 22:00; Stop 09/08/16 at 21:59; Status DC Vancomycin HCl/ Sodium Chloride (Iv Sodium Chloride 0.9% 250ml) 250 ml @ 167 mls/hr Q8H IV Last administered on 09/08/16 05:39; Start 09/07/16 at 23:00; Stop 09/08/16 at 15:54; Status DC Vancomycin HCl 1 each 1 each 1X ONCE MC Last administered on 09/08/16 14:30; Start 09/08/16 at 14:30; Stop 09/08/16 at 14:31; Status DC Sodium Chloride/ Potassium Chloride/ Potassium Phosphate/ Magnesium Sulfate/ Calcium Gluconate/ Multivitamins/ Minerals/Chromium/ Copper/Manganese/ Seleni/Zn /Total Parenteral Nutrition/Amino Acids/Dextrose/ Fat Emulsion Intravenous ( Sodium Chloride/ Potassium Phospha... 1,512 ml @ 63 mls/hr TPN CONT IV Last administered on 09/08/16 22:23; Start 09/08/16 at 22:00; Stop 09/09/16 at 21:59 ; Status DC Pantoprazole Sodium 40 mg 40 mg DAILYAC IVP Last administered on 09/10/16 07: 27; Start 09/08/16 at 15:00 Vancomycin HCl 1.25 gm/Sodium Chloride 250 ml @ 167 mls/hr Q6HRS IV Last administered on 09/10/16 11:55; Start 09/08/16 at 17:00 Sodium Chloride 120 meq/Potassium Chloride 50 meq/ Potassium Phosphate 13.6 mmol /Magnesium Sulfate 10 meq/ Calcium Gluconate 10 meq/ Multivitamins/ Minerals 10 ml/ Chromium/Copper/ Manganese/Seleni/ Zn 1 ml/Total Parenteral Nutrition/Amino Acids/Dextrose/ Fat Emulsion Intravenous 1,512 ml @ 63 mls/hr TPN CONT IV Last administered on 09/09/16 22:37; Start 09/09/16 at 22:00; Stop 09/10/16 at 21:59 Sodium Chloride/ Potassium Chloride/ Potassium Phosphate/ Magnesium Sulfate/ Calcium Gluconate/ Multivitamins/ Minerals/Chromium/ Copper/Manganese/ Seleni/Zn /Total Parenteral Nutrition/Amino Acids/Dextrose/ Fat Emulsion Intravenous ( Sodium Chloride/ Potassium Phospha... 1,512 ml @ 63 mls/hr TPN CONT IV ; Start 09/10/16 at 22:00; Stop 09/11/16 at 21:59 Iohexol (Omnipaque 240 Mg/ml) 30 ml 1X ONCE PO ; Start 09/10/16 at 14:15; Stop 09/10/16 at 14:21; Status DC Iohexol (Omnipaque 300 Mg/ml) 75 ml 1X ONCE IV ; Start 09/10/16 at 14:15; Stop 09/10/16 at 14:21; Status DC Info (Do NOT chart on this entry -- for MONITORING) 1 each PRN DAILY PRN MC SEE COMMENTS; Start 09/10/16 at 14:30; Stop 09/12/16 at 14:29 Vitals/I & O Vital Sign - Last 24 Hours 09/09/16 09/09/16 09/09/16 09/09/16 15:07 19:58 20:13 22:23 Temp 99.2 99.1 100.0 99.2 99.1 100.0 Pulse 111 109 100 Resp 16 16 16 B/P 113/82 113/85 120/79 Pulse Ox 96 96 95 O2 Delivery Room Air Room Air Room Air Room Air 09/10/16 09/10/16 09/10/16 09/10/16 02:40 07:35 08:00 11:15 Temp 99.7 99.9 99.9 99.7 99.9 99.9 Pulse 102 117 111 Resp 16 20 20 B/P 125/74 120/75 111/77 Pulse Ox 95 97 95 O2 Delivery Room Air Room Air Room Air Room Air Intake and Output 09/09/16 09/09/16 09/10/16 15:00 23:00 07:00 Intake Total 0 ml 50 ml 2661 ml Output Total 225 ml 200 ml Balance -225 ml -150 ml 2661 ml PETER TARIQ MD Sep 10, 2016 15:02
--- NOTE | 2016-09-10 17:09 | PDOC ---
Infectious Disease Note Subjective Subjective s/p abdomen/pelvis CT c/o subjective fever. Tmax 100.0 Denies N/V/D/abdominal pain/cramps TPN ROS ROS GEN: Denies chills, sweats HEENT: Denies blurred vision, sore throat CV: Denies chest pain RESP: Denies shortness of air, cough Vital Sign Vital Signs Vital Signs Date Time Temp Pulse Resp B/P Pulse Ox O2 Delivery O2 Flow Rate FiO2 09/10/16 11:15 99.9 111 20 111/77 95 Room Air 99.9 09/09/16 07:20 0.5 Physical Exam PHYSICAL EXAM GENERAL: Lying down, NAD HEENT: Oral cavity clear NECK: Supple LUNGS: Clear HEART: S1S2, no gallop, no murmur ABD: Obese, soft, NT. Drains x 2 intact. EXT: No edema, no cyanosis CELL REPAIRER: Alert, oriented x 3, no focal neurologic deficit SKIN: No rash RUE-PICC. clean Labs Lab Laboratory Tests Test 09/10/16 00:05 09/10/16 06:14 09/10/16 11:40 Glucose (Fingerstick) 118mg/dL (70-99) 130mg/dL (70-99) 119mg/dL (70-99) Objective Assessment Fever Diverticulitis Perforated viscous -on Zosyn initially but changed to Meropenem 09/04 Abd abscess - s/ p [address] 09/04 - E. coli x 2 spp, Strep anginosis & bacteroides Leukocytosis. up Plan Plan of Care Vanc (09/07), Meropenem & Fluconazole -Dose Gent times one 09/07. -Dose Levofloxacin times one 09/06. Monitor WBC, Cr & temp Await results of CT Patient seen and examined. Chart reviewed. 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 Agree with above plan. Follow CT results. JOHAN MEYER APRN Sep 10, 2016 17:09 ANGELA JENKINS MD Sep 10, 2016 17:11
--- NOTE | 2016-09-10 17:23 | RAD ---
CT of the abdomen and pelvis with contrast, 09/10/2016: History: Follow-up pneumoperitoneum and abscesses Multidetector CT imaging was performed following oral and IV administration of contrast. Comparison is made to a study from 09/03/2016. There has been interval placement of 2 pigtail drains within pelvic fluid collections. One drain lies anteriorly laterally on the right. There has been interval resolution of the large fluid collection previously seen in that region. The second drain lies low in the pelvis on the left. There has been successful evacuation of the majority of that fluid as well. There is now a 6.6 cm fluid collection in the anterior aspect of the upper pelvis with discrete march, compatible with an additional abscess. There is a larger 8.2 cm fluid collection with similar characteristics in the left paracolic gutter. There is also a 3.7 cm fluid collection adjacent to the left psoas muscle at the level of the lower pole of the left kidney suspicious for an additional abscess. There is a small 2 cm fluid collection in the deep pelvis which may represent free fluid. There are small bowel loops in the upper pelvis surrounding the above-described midline pelvic fluid collection which demonstrate thickened march. The small bowel proximal to this level is dilated suggesting partial obstruction. There is gas and fluid in the colon without colonic distention. No free air is evident in the abdomen at this time. The liver is unremarkable. No gallbladder abnormality is seen. No pancreatic abnormality is detected. The spleen is of normal size. No renal abnormality is detected. IMPRESSION: 1. Successful percutaneous drainage of 2 pelvic fluid collections as described above. 2. Moderate-sized encapsulated fluid collections in the left paracolic gutter and upper pelvis near the midline, and a smaller fluid collection along the lower pole of the left kidney suggest additional abscesses. 3. Tiny amount of fluid in the deep pelvis which may represent free fluid. 4. Mural thickening involving small bowel loops adjacent to the midline pelvic fluid collection probably due to inflammation, with evidence of associated partial small bowel obstruction. PQRS Compliance Statement: One or more of the following individualized dose reduction techniques were utilized for this examination: 1. Automated exposure control 2. Adjustment of the mA and/or kV according to patient size 3. Use of iterative reconstruction technique
[2016-09-10 19:00] VITALS: BP 113/75
[2016-09-10] MEDS ORDERED: AMINO ACIDS IV SCH ×10 (22:00)
[2016-09-10] MEDS ORDERED: DEXTROSE 70% IV SCH ×10 (22:00)
[2016-09-10] MEDS ORDERED: [UNRECOGNIZED DRUG - OTHER] IV SCH ×10 (22:00)
[2016-09-10] MEDS ORDERED: TOTAL PARENTERAL NUTRITION IV SCH ×10 (22:00)
[2016-09-10 23:00] VITALS: BP 111/73
[2016-09-11] VITALS (19 sets, daily range): BP systolic 105–130; BP diastolic 70–114
[2016-09-11 04:27] LABS: BASO # 0.1 x10^3/uL (0.0-0.2); BASO % 1 % (0-3); EOS % 0 % (0-3); HEMATOCRIT 34.8 % (39.0-53.0); HEMOGLOBIN 11.5 g/dL (13.0-17.5); LYMPH # 1.5 x10^3/uL (1.0-4.8); LYMPH % 8 % (24-48); MEAN CORPUSCULAR HEMOGLOBIN 29 pg (25-35); MEAN CORPUSCULAR HGB CONC 33 g/dL (31-37); MEAN CORPUSCULAR VOLUME 88 fL (79-100); MONO % 5 % (0-9); NEUT % 87 % (31-73); PLATELET COUNT 329 x10^3/uL (140-400); RED BLOOD COUNT 3.95 x10^6/uL (4.30-5.70); RED CELL DISTRIBUTION WIDTH 12.6 % (11.5-14.5); WHITE BLOOD COUNT 20.3 x10^3/uL (4.0-11.0)
[2016-09-11 04:45] LABS: ALBUMIN 2.5 g/dL (3.4-5.0); ALBUMIN/GLOBULIN RATIO 0.6 (1.0-1.7); CALCIUM 8.6 mg/dL (8.5-10.1); CREATININE 0.6 mg/dL (0.7-1.3); GFR 173.6; PHOSPHORUS 4.4 mg/dL (2.6-4.7); POTASSIUM 4.3 mmol/L (3.5-5.1); TOTAL BILIRUBIN 1.2 mg/dL (0.2-1.0)
[2016-09-11] MEDS: MEROPENEM 1 GM in IV NORMAL SALINE 100ML 100 ML IV SCH ×3 (05:24→21:05)
[2016-09-11] MEDS: VANCOMYCIN 1.25 GM in IV NORMAL SALINE 250ML 250 ML IV SCH (06:14)
[2016-09-11] MEDS: PANTOPRAZOLE IV PUSH 40 MG VIAL. IVP SCH (07:49)
--- NOTE | 2016-09-11 09:39 | PDOC ---
SURGICAL PROGRESS NOTE Subjective feels about the same Vital Signs Vital Signs Date Time Temp Pulse Resp B/P Pulse Ox O2 Delivery O2 Flow Rate FiO2 09/11/16 08:00 Room Air 09/11/16 07:34 99.3 115 18 105/71 97 99.3 Tmax 101.2 I&O Intake and Output 09/11/16 07:00 Intake Total 2100 ml Output Total 500 ml Balance 1600 ml Intake Oral 0 ml IV Total 2100 ml Output Urine Total 500 ml # Voids 5 # Bowel Movements 1 PATIENT HAS A BAKER: No General: Alert, Oriented X3, No acute distress Abdomen: Soft, Other (mildly TTP without localization, scant output in drains, right side serosanguineous, left side grayish) Labs Laboratory Tests Test 09/09/16 10:50 09/09/16 11:34 09/09/16 16:38 09/10/16 00:05 White Blood Count 22.1x10^3/uL (4.0-11.0) Red Blood Count 4.33x10^6/uL (4.30-5.70) Hemoglobin 12.7g/dL (13.0-17.5) Hematocrit 37.7% (39.0-53.0) Mean Corpuscular Volume 87fL (79-100) Mean Corpuscular Hemoglobin 30pg (25-35) Mean Corpuscular Hemoglobin Concent 34g/dL (31-37) Red Cell Distribution Width 12.8% (11.5-14.5) Platelet Count 426x10^3/uL (140-400) Neutrophils (%) (Auto) 88% (31-73) Lymphocytes (%) (Auto) 7% (24-48) Monocytes (%) (Auto) 4% (0-9) Eosinophils (%) (Auto) 0% (0-3) Basophils (%) (Auto) 1% (0-3) Neutrophils # (Auto) 19.5x10^3uL (1.8-7.7) Lymphocytes # (Auto) 1.5x10^3/uL (1.0-4.8) Monocytes # (Auto) 0.9x10^3/uL (0.0-1.1) Eosinophils # (Auto) 0.0x10^3/uL (0.0-0.7) Basophils # (Auto) 0.1x10^3/uL (0.0-0.2) Segmented Neutrophils % 82% (35-66) Band Neutrophils % 5% (0-9) Lymphocytes % 10% (24-48) Atypical Lymphocytes % (Manual) 1% (0-0) Monocytes % 2% (0-10) Platelet Estimate Increased (ADEQUATE) Giant Platelets Occ Sodium Level 137mmol/L (136-145) Potassium Level 4.2mmol/L (3.5-5.1) Chloride Level 101mmol/L (98-107) Carbon Dioxide Level 23mmol/L (21-32) Anion Gap 13 (6-14) Blood Urea Nitrogen 8mg/dL (8-26) Creatinine 0.6mg/dL (0.7-1.3) Estimated GFR (Cockcroft-Gault) 173.6 Glucose Level 126mg/dL (70-99) Calcium Level 8.9mg/dL (8.5-10.1) Phosphorus Level 3.9mg/dL (2.6-4.7) Magnesium Level 2.1mg/dL (1.8-2.4) Glucose (Fingerstick) 126mg/dL (70-99) 122mg/dL (70-99) 118mg/dL (70-99) Test 09/10/16 06:14 09/10/16 11:40 09/11/16 04:00 Glucose (Fingerstick) 130mg/dL (70-99) 119mg/dL (70-99) White Blood Count 20.3x10^3/uL (4.0-11.0) Red Blood Count 3.95x10^6/uL (4.30-5.70) Hemoglobin 11.5g/dL (13.0-17.5) Hematocrit 34.8% (39.0-53.0) Mean Corpuscular Volume 88fL (79-100) Mean Corpuscular Hemoglobin 29pg (25-35) Mean Corpuscular Hemoglobin Concent 33g/dL (31-37) Red Cell Distribution Width 12.6% (11.5-14.5) Platelet Count 329x10^3/uL (140-400) Neutrophils (%) (Auto) 87% (31-73) Lymphocytes (%) (Auto) 8% (24-48) Monocytes (%) (Auto) 5% (0-9) Eosinophils (%) (Auto) 0% (0-3) Basophils (%) (Auto) 1% (0-3) Neutrophils # (Auto) 17.6x10^3uL (1.8-7.7) Lymphocytes # (Auto) 1.5x10^3/uL (1.0-4.8) Monocytes # (Auto) 1.0x10^3/uL (0.0-1.1) Eosinophils # (Auto) 0.0x10^3/uL (0.0-0.7) Basophils # (Auto) 0.1x10^3/uL (0.0-0.2) Sodium Level 137mmol/L (136-145) Potassium Level 4.3mmol/L (3.5-5.1) Chloride Level 100mmol/L (98-107) Carbon Dioxide Level 24mmol/L (21-32) Anion Gap 13 (6-14) Blood Urea Nitrogen 9mg/dL (8-26) Creatinine 0.6mg/dL (0.7-1.3) Estimated GFR (Cockcroft-Gault) 173.6 BUN/Creatinine Ratio 15 (6-20) Glucose Level 108mg/dL (70-99) Calcium Level 8.6mg/dL (8.5-10.1) Phosphorus Level 4.4mg/dL (2.6-4.7) Magnesium Level 2.0mg/dL (1.8-2.4) Total Bilirubin 1.2mg/dL (0.2-1.0) Aspartate Amino Transf (AST/SGOT) 52U/L (15-37) Alanine Aminotransferase (ALT/SGPT) 75U/L (16-63) Alkaline Phosphatase 181U/L (46-116) Total Protein 7.0g/dL (6.4-8.2) Albumin 2.5g/dL (3.4-5.0) Albumin/Globulin Ratio 0.6 (1.0-1.7) Laboratory Tests Test 09/10/16 11:40 09/11/16 04:00 Glucose (Fingerstick) 119mg/dL (70-99) White Blood Count 20.3x10^3/uL (4.0-11.0) Red Blood Count 3.95x10^6/uL (4.30-5.70) Hemoglobin 11.5g/dL (13.0-17.5) Hematocrit 34.8% (39.0-53.0) Mean Corpuscular Volume 88fL (79-100) Mean Corpuscular Hemoglobin 29pg (25-35) Mean Corpuscular Hemoglobin Concent 33g/dL (31-37) Red Cell Distribution Width 12.6% (11.5-14.5) Platelet Count 329x10^3/uL (140-400) Neutrophils (%) (Auto) 87% (31-73) Lymphocytes (%) (Auto) 8% (24-48) Monocytes (%) (Auto) 5% (0-9) Eosinophils (%) (Auto) 0% (0-3) Basophils (%) (Auto) 1% (0-3) Neutrophils # (Auto) 17.6x10^3uL (1.8-7.7) Lymphocytes # (Auto) 1.5x10^3/uL (1.0-4.8) Monocytes # (Auto) 1.0x10^3/uL (0.0-1.1) Eosinophils # (Auto) 0.0x10^3/uL (0.0-0.7) Basophils # (Auto) 0.1x10^3/uL (0.0-0.2) Sodium Level 137mmol/L (136-145) Potassium Level 4.3mmol/L (3.5-5.1) Chloride Level 100mmol/L (98-107) Carbon Dioxide Level 24mmol/L (21-32) Anion Gap 13 (6-14) Blood Urea Nitrogen 9mg/dL (8-26) Creatinine 0.6mg/dL (0.7-1.3) Estimated GFR (Cockcroft-Gault) 173.6 BUN/Creatinine Ratio 15 (6-20) Glucose Level 108mg/dL (70-99) Calcium Level 8.6mg/dL (8.5-10.1) Phosphorus Level 4.4mg/dL (2.6-4.7) Magnesium Level 2.0mg/dL (1.8-2.4) Total Bilirubin 1.2mg/dL (0.2-1.0) Aspartate Amino Transf (AST/SGOT) 52U/L (15-37) Alanine Aminotransferase (ALT/SGPT) 75U/L (16-63) Alkaline Phosphatase 181U/L (46-116) Total Protein 7.0g/dL (6.4-8.2) Albumin 2.5g/dL (3.4-5.0) Albumin/Globulin Ratio 0.6 (1.0-1.7) I have reviewed the following reviewed CT abd/pelvis from yesterday with IR Problem List Problems Medical Problems: (1) Abdominal pain Status: Acute (2) Pneumoperitoneum Status: Acute Assessment/Plan perforated colon with abscess talked with Sebas and his father, who was at the bedside,for some time. explained options of continued non operative management with attempted drainage of the new abscesses found on yesterday's CT versus ex lap for resection and diversion he would really like to try and avoid a stoma I answered his and his dad's questions and Sebas would like to try perc drainage for now Problems: RODRIGUE LÓPEZ MD Sep 11, 2016 09:39
--- NOTE | 2016-09-11 10:00 | PDOC ---
PROGRESS NOTES Chief Complaint Chief Complaint Acute abdominal pain 2/2 abdominal abscess s/p bl COLLEEN drainage on 09/04 Perforated bowls, 2/2 inflammatory bowel disease likely sepsis malnutrition, not ROLL ICER MACHINE on ROLL ICER MACHINE for abdominal pain Recurrent abdominal abscess Plan Pain control with Dilaudid PAC Avoid co2 narcosis On Fluconazole and Meropenem Follow culture, ID has been following Planning for removal of drainage today ON TPN Monitor electrolytes labs reviewed, prognosis guarded, History of Present Illness History of Present Illness doing better pain controlled with drier feeder no fevers NPO Vitals Vitals Vital Signs Date Time Temp Pulse Resp B/P Pulse Ox O2 Delivery O2 Flow Rate FiO2 09/11/16 08:00 Room Air 09/11/16 07:34 99.3 115 18 105/71 97 99.3 Physical Exam General: Alert, Oriented X3, Cooperative, No acute distress Heart: Normal S1 Lungs: Clear Abdomen: Soft, Other (colleen drains present) Extremities: No clubbing, No cyanosis Skin: No rashes, No breakdown Labs LABS Laboratory Tests Test 09/10/16 11:40 09/11/16 04:00 Glucose (Fingerstick) 119mg/dL (70-99) White Blood Count 20.3x10^3/uL (4.0-11.0) Red Blood Count 3.95x10^6/uL (4.30-5.70) Hemoglobin 11.5g/dL (13.0-17.5) Hematocrit 34.8% (39.0-53.0) Mean Corpuscular Volume 88fL (79-100) Mean Corpuscular Hemoglobin 29pg (25-35) Mean Corpuscular Hemoglobin Concent 33g/dL (31-37) Red Cell Distribution Width 12.6% (11.5-14.5) Platelet Count 329x10^3/uL (140-400) Neutrophils (%) (Auto) 87% (31-73) Lymphocytes (%) (Auto) 8% (24-48) Monocytes (%) (Auto) 5% (0-9) Eosinophils (%) (Auto) 0% (0-3) Basophils (%) (Auto) 1% (0-3) Neutrophils # (Auto) 17.6x10^3uL (1.8-7.7) Lymphocytes # (Auto) 1.5x10^3/uL (1.0-4.8) Monocytes # (Auto) 1.0x10^3/uL (0.0-1.1) Eosinophils # (Auto) 0.0x10^3/uL (0.0-0.7) Basophils # (Auto) 0.1x10^3/uL (0.0-0.2) Sodium Level 137mmol/L (136-145) Potassium Level 4.3mmol/L (3.5-5.1) Chloride Level 100mmol/L (98-107) Carbon Dioxide Level 24mmol/L (21-32) Anion Gap 13 (6-14) Blood Urea Nitrogen 9mg/dL (8-26) Creatinine 0.6mg/dL (0.7-1.3) Estimated GFR (Cockcroft-Gault) 173.6 BUN/Creatinine Ratio 15 (6-20) Glucose Level 108mg/dL (70-99) Calcium Level 8.6mg/dL (8.5-10.1) Phosphorus Level 4.4mg/dL (2.6-4.7) Magnesium Level 2.0mg/dL (1.8-2.4) Total Bilirubin 1.2mg/dL (0.2-1.0) Aspartate Amino Transf (AST/SGOT) 52U/L (15-37) Alanine Aminotransferase (ALT/SGPT) 75U/L (16-63) Alkaline Phosphatase 181U/L (46-116) Total Protein 7.0g/dL (6.4-8.2) Albumin 2.5g/dL (3.4-5.0) Albumin/Globulin Ratio 0.6 (1.0-1.7) Assessment and Plan Assessmemt and Plan Problems Medical Problems: (1) Abdominal pain Status: Acute (2) Pneumoperitoneum Status: Acute Problems: Comment Review of Relevant I have reviewed the following items crystal (where applicable) has been applied. Labs Laboratory Tests Test 09/09/16 10:50 09/09/16 11:34 09/09/16 16:38 09/10/16 00:05 White Blood Count 22.1x10^3/uL (4.0-11.0) Red Blood Count 4.33x10^6/uL (4.30-5.70) Hemoglobin 12.7g/dL (13.0-17.5) Hematocrit 37.7% (39.0-53.0) Mean Corpuscular Volume 87fL (79-100) Mean Corpuscular Hemoglobin 30pg (25-35) Mean Corpuscular Hemoglobin Concent 34g/dL (31-37) Red Cell Distribution Width 12.8% (11.5-14.5) Platelet Count 426x10^3/uL (140-400) Neutrophils (%) (Auto) 88% (31-73) Lymphocytes (%) (Auto) 7% (24-48) Monocytes (%) (Auto) 4% (0-9) Eosinophils (%) (Auto) 0% (0-3) Basophils (%) (Auto) 1% (0-3) Neutrophils # (Auto) 19.5x10^3uL (1.8-7.7) Lymphocytes # (Auto) 1.5x10^3/uL (1.0-4.8) Monocytes # (Auto) 0.9x10^3/uL (0.0-1.1) Eosinophils # (Auto) 0.0x10^3/uL (0.0-0.7) Basophils # (Auto) 0.1x10^3/uL (0.0-0.2) Segmented Neutrophils % 82% (35-66) Band Neutrophils % 5% (0-9) Lymphocytes % 10% (24-48) Atypical Lymphocytes % (Manual) 1% (0-0) Monocytes % 2% (0-10) Platelet Estimate Increased (ADEQUATE) Giant Platelets Occ Sodium Level 137mmol/L (136-145) Potassium Level 4.2mmol/L (3.5-5.1) Chloride Level 101mmol/L (98-107) Carbon Dioxide Level 23mmol/L (21-32) Anion Gap 13 (6-14) Blood Urea Nitrogen 8mg/dL (8-26) Creatinine 0.6mg/dL (0.7-1.3) Estimated GFR (Cockcroft-Gault) 173.6 Glucose Level 126mg/dL (70-99) Calcium Level 8.9mg/dL (8.5-10.1) Phosphorus Level 3.9mg/dL (2.6-4.7) Magnesium Level 2.1mg/dL (1.8-2.4) Glucose (Fingerstick) 126mg/dL (70-99) 122mg/dL (70-99) 118mg/dL (70-99) Test 09/10/16 06:14 09/10/16 11:40 09/11/16 04:00 Glucose (Fingerstick) 130mg/dL (70-99) 119mg/dL (70-99) White Blood Count 20.3x10^3/uL (4.0-11.0) Red Blood Count 3.95x10^6/uL (4.30-5.70) Hemoglobin 11.5g/dL (13.0-17.5) Hematocrit 34.8% (39.0-53.0) Mean Corpuscular Volume 88fL (79-100) Mean Corpuscular Hemoglobin 29pg (25-35) Mean Corpuscular Hemoglobin Concent 33g/dL (31-37) Red Cell Distribution Width 12.6% (11.5-14.5) Platelet Count 329x10^3/uL (140-400) Neutrophils (%) (Auto) 87% (31-73) Lymphocytes (%) (Auto) 8% (24-48) Monocytes (%) (Auto) 5% (0-9) Eosinophils (%) (Auto) 0% (0-3) Basophils (%) (Auto) 1% (0-3) Neutrophils # (Auto) 17.6x10^3uL (1.8-7.7) Lymphocytes # (Auto) 1.5x10^3/uL (1.0-4.8) Monocytes # (Auto) 1.0x10^3/uL (0.0-1.1) Eosinophils # (Auto) 0.0x10^3/uL (0.0-0.7) Basophils # (Auto) 0.1x10^3/uL (0.0-0.2) Sodium Level 137mmol/L (136-145) Potassium Level 4.3mmol/L (3.5-5.1) Chloride Level 100mmol/L (98-107) Carbon Dioxide Level 24mmol/L (21-32) Anion Gap 13 (6-14) Blood Urea Nitrogen 9mg/dL (8-26) Creatinine 0.6mg/dL (0.7-1.3) Estimated GFR (Cockcroft-Gault) 173.6 BUN/Creatinine Ratio 15 (6-20) Glucose Level 108mg/dL (70-99) Calcium Level 8.6mg/dL (8.5-10.1) Phosphorus Level 4.4mg/dL (2.6-4.7) Magnesium Level 2.0mg/dL (1.8-2.4) Total Bilirubin 1.2mg/dL (0.2-1.0) Aspartate Amino Transf (AST/SGOT) 52U/L (15-37) Alanine Aminotransferase (ALT/SGPT) 75U/L (16-63) Alkaline Phosphatase 181U/L (46-116) Total Protein 7.0g/dL (6.4-8.2) Albumin 2.5g/dL (3.4-5.0) Albumin/Globulin Ratio 0.6 (1.0-1.7) Laboratory Tests Test 09/10/16 11:40 09/11/16 04:00 Glucose (Fingerstick) 119mg/dL (70-99) White Blood Count 20.3x10^3/uL (4.0-11.0) Red Blood Count 3.95x10^6/uL (4.30-5.70) Hemoglobin 11.5g/dL (13.0-17.5) Hematocrit 34.8% (39.0-53.0) Mean Corpuscular Volume 88fL (79-100) Mean Corpuscular Hemoglobin 29pg (25-35) Mean Corpuscular Hemoglobin Concent 33g/dL (31-37) Red Cell Distribution Width 12.6% (11.5-14.5) Platelet Count 329x10^3/uL (140-400) Neutrophils (%) (Auto) 87% (31-73) Lymphocytes (%) (Auto) 8% (24-48) Monocytes (%) (Auto) 5% (0-9) Eosinophils (%) (Auto) 0% (0-3) Basophils (%) (Auto) 1% (0-3) Neutrophils # (Auto) 17.6x10^3uL (1.8-7.7) Lymphocytes # (Auto) 1.5x10^3/uL (1.0-4.8) Monocytes # (Auto) 1.0x10^3/uL (0.0-1.1) Eosinophils # (Auto) 0.0x10^3/uL (0.0-0.7) Basophils # (Auto) 0.1x10^3/uL (0.0-0.2) Sodium Level 137mmol/L (136-145) Potassium Level 4.3mmol/L (3.5-5.1) Chloride Level 100mmol/L (98-107) Carbon Dioxide Level 24mmol/L (21-32) Anion Gap 13 (6-14) Blood Urea Nitrogen 9mg/dL (8-26) Creatinine 0.6mg/dL (0.7-1.3) Estimated GFR (Cockcroft-Gault) 173.6 BUN/Creatinine Ratio 15 (6-20) Glucose Level 108mg/dL (70-99) Calcium Level 8.6mg/dL (8.5-10.1) Phosphorus Level 4.4mg/dL (2.6-4.7) Magnesium Level 2.0mg/dL (1.8-2.4) Total Bilirubin 1.2mg/dL (0.2-1.0) Aspartate Amino Transf (AST/SGOT) 52U/L (15-37) Alanine Aminotransferase (ALT/SGPT) 75U/L (16-63) Alkaline Phosphatase 181U/L (46-116) Total Protein 7.0g/dL (6.4-8.2) Albumin 2.5g/dL (3.4-5.0) Albumin/Globulin Ratio 0.6 (1.0-1.7) Microbiology 08/30/16 Blood Culture - Final, Complete NO GROWTH AFTER 5 DAYS 08/30/16 Urine Culture - Final, Complete 08/30/16 Urine Culture Result 1 (TOAN) - Final, Complete 09/04/16 Gram Stain - Final, Complete Medications Current Medications Sodium Chloride (Iv Sodium Chloride 0.9% 1000ml Bag) 1,000 ml @ 1,000 mls/hr Q1H IV Last administered on 08/30/16 19:58; Start 08/30/16 at 19:45; Stop 07/06 at 20:44; Status DC Morphine Sulfate 4 mg 1X ONCE IV Last administered on 08/30/16 19:58; Start 08/30/16 at 19:45; Stop 08/30/16 at 19:46; Status DC Ondansetron HCl (Zofran) 4 mg 1X ONCE IV Last administered on 08/30/16 19:57 ; Start 08/30/16 at 19:45; Stop 08/30/16 at 19:46; Status DC Iohexol (Omnipaque 300 Mg/ml) 75 ml 1X ONCE IV Last administered on 08/30/16 20:57; Start 08/30/16 at 20:00; Stop 08/30/16 at 20:01; Status DC Morphine Sulfate 4 mg 1X ONCE IV Last administered on 08/30/16 22:22; Start 08/30/16 at 21:45; Stop 08/30/16 at 21:46; Status DC Piperacillin Sod/ Tazobactam Sod 1 each 1 each PRN DAILY PRN MC SEE COMMENTS; Start 08/30/16 at 21:45; Stop 09/02/16 at 13:43; Status DC Piperacillin Sod/ Tazobactam Sod/ Sodium Chloride (Zosyn/Iv Sodium Chloride 0.9 % 50ml) 50 ml @ 100 mls/hr Q6HRS IV Last administered on 09/04/16 05:07; Start 08/30/16 at 22:00; Stop 09/04/16 at 10:30; Status DC Ondansetron HCl (Zofran) 4 mg PRN Q8HRS PRN IV NAUSEA/VOMITING; Start 08/30/16 at 22:30; Stop 08/31/16 at 22:29; Status DC Morphine Sulfate 4 mg 4 mg PRN Q2HR PRN IV PAIN Last administered on 08/30/16 23:16; Start 08/30/16 at 22:30; Stop 08/31/16 at 22:29; Status DC Sodium Chloride (Iv Sodium Chloride 0.9% 1000ml Bag) 1,000 ml @ 125 mls/hr Q8H IV Last administered on 08/31/16 09:13; Start 08/30/16 at 22:30; Stop at 13:05; Status DC Acetaminophen 650 mg 650 mg PRN Q4HRS PRN PO FEVER Last administered on 23:15; Start 08/30/16 at 22:30; Stop 08/31/16 at 22:29; Status DC Hydromorphone HCl 30 ml @ 0 mls/hr CONT PRN PRN IV PROTOCOL Last administered on 09/08/16 04:45; Start 08/30/16 at 23:30 Potassium Chloride/Dextrose/ Sod Cl 1,000 ml @ 100 mls/hr Q10H IV Last administered on 09/01/16 03:52; Start 08/31/16 at 13:15; Stop 09/01/16 at 14:37 ; Status DC Sodium Chloride 1,000 ml @ 1,000 mls/hr 1X ONCE IV Last administered on 14:24; Start 08/31/16 at 13:15; Stop 08/31/16 at 14:14; Status DC Albumin Human (Plasmanate) 500 ml @ 125 mls/hr 1X ONCE IV Last administered on 08/31/16 17:21; Start 08/31/16 at 17:00; Stop 08/31/16 at 20:59; Status DC Ondansetron HCl 4 mg 4 mg PRN Q6HRS PRN IV NAUSEA/VOMITING; Start 08/31/16 at 22:45 Amino Acids/ Glycerin/ Electrolytes (Procalamine) 1,000 ml @ 100 mls/hr Q10H IV Last administered on 09/05/16 10:00; Start 09/01/16 at 14:45; Stop at 21:59; Status DC Acetaminophen (Tylenol) 650 mg PRN Q4HRS PRN [place] MILD PAIN / TEMP Last administered on 09/03/16 20:39; Start 09/01/16 at 20:30 Lorazepam (Ativan) 1 mg PRN Q4HRS PRN IV ANXIETY / AGITATION Last administered on 09/03/16 17:57; Start 09/02/16 at 10:30 Saliva Substitute (Biotene Moisturizing Mouth) 2 spray PRN Q15MIN PRN PO DRY MOUTH Last administered on 09/02/16 18:13; Start 09/02/16 at 10:30 Iohexol (Omnipaque 240 Mg/ml) 30 ml 1X ONCE PO Last administered on 09/03/16 10:18; Start 09/03/16 at 09:00; Stop 09/03/16 at 09:01; Status DC Iohexol (Omnipaque 300 Mg/ml) 75 ml 1X ONCE IV Last administered on 09/03/16 10:18; Start 09/03/16 at 09:00; Stop 09/03/16 at 09:01; Status DC Info (Do NOT chart on this entry -- for MONITORING) 1 each PRN DAILY PRN MC SEE COMMENTS; Start 09/03/16 at 08:45; Stop 09/05/16 at 08:44; Status DC Info 1 each PRN DAILY PRN MC SEE COMMENTS Last administered on 09/08/16 12:51 ; Start 09/04/16 at 15:00 Midazolam HCl (Versed) 5 mg STK-MED ONCE .ROUTE ; Start 09/04/16 at 09:54; Stop 09/04/16 at 09:55; Status DC Fentanyl Citrate (Fentanyl 5ml Vial) 250 mcg STK-MED ONCE .ROUTE ; Start at 09:54; Stop 09/04/16 at 09:55; Status DC Lidocaine/Sodium Bicarbonate 20 ml 20 ml STK-MED ONCE IJ ; Start 09/04/16 at 09: 55; Stop 09/04/16 at 09:56; Status DC Meropenem 1 gm/ Sodium Chloride 100 ml @ 200 mls/hr Q8HRS IV Last administered on 09/11/16 05:24; Start 09/04/16 at 14:00 Fluconazole/ Sodium Chloride (Diflucan 400mg/ 200ml Premix) 200 ml @ 100 mls/ hr Q24H IV Last administered on 09/10/16 10:30; Start 09/04/16 at 11:00 Lidocaine/Sodium Bicarbonate (Buffered Lidocaine 1%) 3 ml 1X ONCE IJ Last administered on 09/04/16 10:49; Start 09/04/16 at 10:45; Stop 09/04/16 at 10:48 ; Status DC Midazolam HCl (Versed) 0.5 mg 1X ONCE IV Last administered on 09/04/16 10:50 ; Start 09/04/16 at 10:45; Stop 09/04/16 at 10:48; Status DC Fentanyl Citrate 100 mcg 100 mcg 1X ONCE IV Last administered on 09/04/16 10: 50; Start 09/04/16 at 10:45; Stop 09/04/16 at 10:48; Status DC Sodium Chloride 90 meq/Potassium Chloride 50 meq/ Potassium Phosphate 13.6 mmol/ Magnesium Sulfate 10 meq/ Calcium Gluconate 10 meq/ Multivitamins/ Minerals 10 ml/ Chromium/Copper/ Manganese/Seleni/ Zn 1 ml/Total Parenteral Nutrition/Amino Acids/Dextrose/ Fat Emulsion Intravenous 1,512 ml @ 63 mls/hr TPN CONT IV Last administered on 09/05/16 20:50; Start 09/05/16 at 22:00; Stop 09/06/16 at 21:59; Status DC Levofloxacin/ Dextrose 150 ml @ 100 mls/hr 1X ONCE IV Last administered on 09:00; Start 09/06/16 at 09:00; Stop 09/06/16 at 10:29; Status DC Sodium Chloride/ Potassium Chloride/ Potassium Phosphate/ Magnesium Sulfate/ Calcium Gluconate/ Multivitamins/ Minerals/Chromium/ Copper/Manganese/ Seleni/Zn /Total Parenteral Nutrition/Amino Acids/Dextrose/ Fat Emulsion Intravenous ( Sodium Chloride/ Potassium Phospha... 1,512 ml @ 63 mls/hr TPN CONT IV Last administered on 09/06/16 21:49; Start 09/06/16 at 22:00; Stop 09/07/16 at 21:59 ; Status DC Alteplase, Recombinant (Cathflo) 2 mg 1X ONCE INT CAT Last administered on 20:43; Start 09/07/16 at 10:00; Stop 09/07/16 at 10:01; Status DC Vancomycin HCl (Vanco Per Pharmacy) 1 each PRN DAILY PRN MC SEE COMMENTS Last administered on 09/08/16 16:02; Start 09/07/16 at 10:30 Gentamicin Sulfate 1 each 1 each PRN DAILY PRN MC SEE COMMENTS; Start 09/07/16 at 10:15; Stop 09/07/16 at 13:00; Status DC Vancomycin HCl 2 gm/Sodium Chloride 500 ml @ 250 mls/hr 1X ONCE IV Last administered on 09/07/16 14:58; Start 09/07/16 at 11:00; Stop 09/07/16 at 12:59 ; Status DC Gentamicin Sulfate 500 mg/ Sodium Chloride 112.5 ml @ 112.5 mls/ hr 1X ONCE IV Last administered on 09/07/16 12:52; Start 09/07/16 at 11:00; Stop at 11:59; Status DC Sodium Chloride 90 meq/Potassium Chloride 50 meq/ Potassium Phosphate 13.6 mmol/ Magnesium Sulfate 10 meq/ Calcium Gluconate 10 meq/ Multivitamins/ Minerals 10 ml/ Chromium/Copper/ Manganese/Seleni/ Zn 1 ml/Total Parenteral Nutrition/Amino Acids/Dextrose/ Fat Emulsion Intravenous 1,512 ml @ 63 mls/hr TPN CONT IV Last administered on 09/07/16 21:41; Start 09/07/16 at 22:00; Stop 09/08/16 at 21:59; Status DC Vancomycin HCl/ Sodium Chloride (Iv Sodium Chloride 0.9% 250ml) 250 ml @ 167 mls/hr Q8H IV Last administered on 09/08/16 05:39; Start 09/07/16 at 23:00; Stop 09/08/16 at 15:54; Status DC Vancomycin HCl 1 each 1 each 1X ONCE MC Last administered on 09/08/16 14:30; Start 09/08/16 at 14:30; Stop 09/08/16 at 14:31; Status DC Sodium Chloride/ Potassium Chloride/ Potassium Phosphate/ Magnesium Sulfate/ Calcium Gluconate/ Multivitamins/ Minerals/Chromium/ Copper/Manganese/ Seleni/Zn /Total Parenteral Nutrition/Amino Acids/Dextrose/ Fat Emulsion Intravenous ( Sodium Chloride/ Potassium Phospha... 1,512 ml @ 63 mls/hr TPN CONT IV Last administered on 09/08/16 22:23; Start 09/08/16 at 22:00; Stop 09/09/16 at 21:59 ; Status DC Pantoprazole Sodium 40 mg 40 mg DAILYAC IVP Last administered on 09/11/16 07: 49; Start 09/08/16 at 15:00 Vancomycin HCl 1.25 gm/Sodium Chloride 250 ml @ 167 mls/hr Q6HRS IV Last administered on 09/11/16 06:14; Start 09/08/16 at 17:00 Sodium Chloride 120 meq/Potassium Chloride 50 meq/ Potassium Phosphate 13.6 mmol /Magnesium Sulfate 10 meq/ Calcium Gluconate 10 meq/ Multivitamins/ Minerals 10 ml/ Chromium/Copper/ Manganese/Seleni/ Zn 1 ml/Total Parenteral Nutrition/Amino Acids/Dextrose/ Fat Emulsion Intravenous 1,512 ml @ 63 mls/hr TPN CONT IV Last administered on 09/09/16 22:37; Start 09/09/16 at 22:00; Stop 09/10/16 at 21:59; Status DC Sodium Chloride/ Potassium Chloride/ Potassium Phosphate/ Magnesium Sulfate/ Calcium Gluconate/ Multivitamins/ Minerals/Chromium/ Copper/Manganese/ Seleni/Zn /Total Parenteral Nutrition/Amino Acids/Dextrose/ Fat Emulsion Intravenous ( Sodium Chloride/ Potassium Phospha... 1,512 ml @ 63 mls/hr TPN CONT IV Last administered on 09/10/16 21:57; Start 09/10/16 at 22:00; Stop 09/11/16 at 21:59 Iohexol (Omnipaque 240 Mg/ml) 30 ml 1X ONCE PO Last administered on 09/10/16 14:15; Start 09/10/16 at 14:15; Stop 09/10/16 at 14:21; Status DC Iohexol (Omnipaque 300 Mg/ml) 75 ml 1X ONCE IV Last administered on 09/10/16 15:41; Start 09/10/16 at 14:15; Stop 09/10/16 at 14:21; Status DC Info (Do NOT chart on this entry -- for MONITORING) 1 each PRN DAILY PRN MC SEE COMMENTS; Start 09/10/16 at 14:30; Stop 09/12/16 at 14:29 Vitals/I & O Vital Sign - Last 24 Hours 09/10/16 09/10/16 09/10/16 09/10/16 11:15 15:00 19:00 20:30 Temp 99.9 101.2 100.1 99.9 101.2 100.1 Pulse 111 114 96 Resp 18 B/P 111/77 117/81 113/75 Pulse Ox 95 97 97 O2 Delivery Room Air Room Air Room Air 09/10/16 09/11/16 09/11/16 09/11/16 23:00 03:00 07:34 08:00 Temp 100.5 100.6 99.3 100.5 100.6 99.3 Pulse 112 112 115 Resp 18 B/P 111/73 123/70 105/71 Pulse Ox 97 97 97 O2 Delivery Room Air Room Air Intake and Output 09/10/16 09/10/16 09/11/16 15:00 23:00 07:00 Intake Total 1850 ml 250 ml Output Total 300 ml 200 ml Balance 1550 ml 50 ml YUN AHN MD Sep 11, 2016 10:00
[2016-09-11] MEDS: FLUCONAZOLE 400MG/200ML PREMIX 200 ML IV SCH (10:06)
--- NOTE | 2016-09-11 10:24 | PDOC ---
Infectious Disease Note Subjective Subjective c/o subjective fever. Tmax 100.0 Denies N/V/D/abdominal pain/cramps TPN ROS ROS GEN: Denies fevers, chills, sweats HEENT: Denies blurred vision, sore throat CV: Denies chest pain RESP: Denies shortness of air, cough GI: Denies n/v/d NEURO: Denies confusion, dizziness MSK: Denies weakness, joint pain/swelling Vital Sign Vital Signs Vital Signs Date Time Temp Pulse Resp B/P Pulse Ox O2 Delivery O2 Flow Rate FiO2 09/11/16 08:00 Room Air 09/11/16 07:34 99.3 115 18 105/71 97 99.3 Physical Exam PHYSICAL EXAM GENERAL: NAD, Alert HEENT: PERRL, OC/OP - clear NECK: Supple, no JVD, no LN LUNGS: Clear HEART: S1S2, no gallop, no murmur ABD: Soft, obese, NT, no organomegaly, no rebound. 2 Drains EXT: No edema, no cyanosis LASER CUTTER: Alert, oriented x 3, no focal neurologic deficit SKIN: No rash IV: PICC -clean Labs Lab Laboratory Tests Test 09/10/16 11:40 09/11/16 04:00 Glucose (Fingerstick) 119mg/dL (70-99) White Blood Count 20.3x10^3/uL (4.0-11.0) Red Blood Count 3.95x10^6/uL (4.30-5.70) Hemoglobin 11.5g/dL (13.0-17.5) Hematocrit 34.8% (39.0-53.0) Mean Corpuscular Volume 88fL (79-100) Mean Corpuscular Hemoglobin 29pg (25-35) Mean Corpuscular Hemoglobin Concent 33g/dL (31-37) Red Cell Distribution Width 12.6% (11.5-14.5) Platelet Count 329x10^3/uL (140-400) Neutrophils (%) (Auto) 87% (31-73) Lymphocytes (%) (Auto) 8% (24-48) Monocytes (%) (Auto) 5% (0-9) Eosinophils (%) (Auto) 0% (0-3) Basophils (%) (Auto) 1% (0-3) Neutrophils # (Auto) 17.6x10^3uL (1.8-7.7) Lymphocytes # (Auto) 1.5x10^3/uL (1.0-4.8) Monocytes # (Auto) 1.0x10^3/uL (0.0-1.1) Eosinophils # (Auto) 0.0x10^3/uL (0.0-0.7) Basophils # (Auto) 0.1x10^3/uL (0.0-0.2) Sodium Level 137mmol/L (136-145) Potassium Level 4.3mmol/L (3.5-5.1) Chloride Level 100mmol/L (98-107) Carbon Dioxide Level 24mmol/L (21-32) Anion Gap 13 (6-14) Blood Urea Nitrogen 9mg/dL (8-26) Creatinine 0.6mg/dL (0.7-1.3) Estimated GFR (Cockcroft-Gault) 173.6 BUN/Creatinine Ratio 15 (6-20) Glucose Level 108mg/dL (70-99) Calcium Level 8.6mg/dL (8.5-10.1) Phosphorus Level 4.4mg/dL (2.6-4.7) Magnesium Level 2.0mg/dL (1.8-2.4) Total Bilirubin 1.2mg/dL (0.2-1.0) Aspartate Amino Transf (AST/SGOT) 52U/L (15-37) Alanine Aminotransferase (ALT/SGPT) 75U/L (16-63) Alkaline Phosphatase 181U/L (46-116) Total Protein 7.0g/dL (6.4-8.2) Albumin 2.5g/dL (3.4-5.0) Albumin/Globulin Ratio 0.6 (1.0-1.7) Micro scherichia coli Moderate growth AEROBIC RES 2 Final Escherichia coli Moderate growth AEROBIC RES 3 Final Comment Streptococcus anginosus group Heavy growth ANTIMICROBIAL SUSCEPTIBILITY Final Comment S = Susceptible; I = Intermediate; R = Resistant P = Positive; N = Negative MICS are expressed in micrograms per mL Antibiotic RSLT#1 RSLT#2 RSLT#3 RSLT#4 Amoxicillin/Clavulanic Acid S S Ampicillin R R Cefepime S S Ceftriaxone S S CONTINUED ON NEXT PAGE RUN DATE: 09/07/16 PAGE 2 RUN TIME: 132[address] [facility] [address] [facility] [place] [address] Conor Young M.D., Passenger Train [employer]ker SPEC: [id number] PATIENT: YINA KEENE [id number] ( Continued) Procedure Result ANTIMICROBIAL SUSCEPTIBILITY Final (continued) Cefuroxime S S Ciprofloxacin R R Ertapenem S S Gentamicin S S Imipenem S S Levofloxacin R R Piperacillin R R Tetracycline S R Tobramycin S S Trimethoprim/Sulfa R R Performed at: [facility] [address] [id number] Party Coordinator: Bushra Bañuelos MD, Phone: [phone] CT 09/10 IMPRESSION: 1. Successful percutaneous drainage of 2 pelvic fluid collections as described above. 2. Moderate-sized encapsulated fluid collections in the left paracolic gutter and upper pelvis near the midline, and a smaller fluid collection along the lower pole of the left kidney suggest additional abscesses. 3. Tiny amount of fluid in the deep pelvis which may represent free fluid. 4. Mural thickening involving small bowel loops adjacent to the midline pelvic fluid collection probably due to inflammation, with evidence of associated partial small bowel obstruction. Objective Assessment Diverticulitis Perf viscous -on Zosyn initially but changed to Meropenem 09/04 recurrent Abd abscess on CT 09/10- s/ p [address] 09/04 - Ecoli/second Ecoli/ Strep anginosis Leukocytosis - better. clinically looks better Plan Plan of Care Back to IR today - f/u cults Discont Vanc with ongoing fever and high dose Cont Meropenem & Fluconazole -Dose Gent times one 09/07. -Dose Levofloxacin times one 09/06. Monitor WBC, Cr & temp in am D/w MIRIAM Dubose MD Sep 11, 2016 10:24
[2016-09-11] MEDS ORDERED: LIDOCAINE 1% / SOD BICARB 8.4% 20 ML VIAL. IJ ONE ×2 (13:02→14:00)
[2016-09-11] MEDS ORDERED: MIDAZOLAM HCL/PF 5 MG/5 ML VIAL ONE (13:20)
[2016-09-11] MEDS ORDERED: FENTANYL PF 100 MCG/2 ML VIAL. ONE (13:20)
--- NOTE | 2016-09-11 13:38 | PDOC ---
Objective: Objective: Per RN - just left for IR procedure. Not c/o increased pain but using PHOTO [employer]CHER more. Vital Signs: Vital Signs Date Time Temp Pulse Resp B/P Pulse Ox O2 Delivery O2 Flow Rate FiO2 09/11/16 10:40 99.5 111 18 113/76 97 Room Air 99.5 Labs: Laboratory Tests Test 09/11/16 04:00 White Blood Count 20.3x10^3/uL Red Blood Count 3.95x10^6/uL Hemoglobin 11.5g/dL Hematocrit 34.8% Mean Corpuscular Volume 88fL Mean Corpuscular Hemoglobin 29pg Mean Corpuscular Hemoglobin Concent 33g/dL Red Cell Distribution Width 12.6% Platelet Count 329x10^3/uL Neutrophils (%) (Auto) 87% Lymphocytes (%) (Auto) 8% Monocytes (%) (Auto) 5% Eosinophils (%) (Auto) 0% Basophils (%) (Auto) 1% Neutrophils # (Auto) 17.6x10^3uL Lymphocytes # (Auto) 1.5x10^3/uL Monocytes # (Auto) 1.0x10^3/uL Eosinophils # (Auto) 0.0x10^3/uL Basophils # (Auto) 0.1x10^3/uL Sodium Level 137mmol/L Potassium Level 4.3mmol/L Chloride Level 100mmol/L Carbon Dioxide Level 24mmol/L Anion Gap 13 Blood Urea Nitrogen 9mg/dL Creatinine 0.6mg/dL Estimated GFR (Cockcroft-Gault) 173.6 BUN/Creatinine Ratio 15 Glucose Level 108mg/dL Calcium Level 8.6mg/dL Phosphorus Level 4.4mg/dL Magnesium Level 2.0mg/dL Total Bilirubin 1.2mg/dL Aspartate Amino Transf (AST/SGOT) 52U/L Alanine Aminotransferase (ALT/SGPT) 75U/L Alkaline Phosphatase 181U/L Total Protein 7.0g/dL Albumin 2.5g/dL Albumin/Globulin Ratio 0.6 Imaging: CT A/P 09/10/16 IMPRESSION: 1. Successful percutaneous drainage of 2 pelvic fluid collections as described above. 2. Moderate-sized encapsulated fluid collections in the left paracolic gutter and upper pelvis near the midline, and a smaller fluid collection along the lower pole of the left kidney suggest additional abscesses. 3. Tiny amount of fluid in the deep pelvis which may represent free fluid. 4. Mural thickening involving small bowel loops adjacent to the midline pelvic fluid collection probably due to inflammation, with evidence of associated partial small bowel obstruction. PE: no exam A/P: Abdominal pain w/ pneumoperitoneum, abscesses -s/p drains by IR 09/04, on IV antibiotics per ID, surgery following, back to IR today for new abscesses on interval CT Leukocytosis, fever, tachycardia -- Out for IR procedure. Will follow. UMM RIVAS Sep 11, 2016 13:38
[2016-09-11] MEDS: TPN PER PHARMACY MC PRN (13:40)
[2016-09-11] MEDS ORDERED: MIDAZOLAM HCL/PF 5 MG/5 ML VIAL IV ONE (14:00)
[2016-09-11] MEDS ORDERED: FENTANYL PF 100 MCG/2 ML VIAL. IV ONE (14:00)
--- NOTE | 2016-09-11 14:27 | PDOC ---
MODERATE SEDATION ASSESSMENT RISKS/ALTERNATIVES Risks/Alternatives Risks and alternatives of this type of sedation and procedure discussed with: RISK/ALTERNATIVES: Patient H & P ON CHART H & P H & P on chart and reviewed for co-morbid conditions and appropriate labs. H&P ON CHART: Yes STATUS PREG STATUS ASSESSED: N/A MEDS/ALLERGIES REVIEWED Meds/Allergies Reviewed Medications and Allergies including time and route of recently administered narcotics and sedatives. MEDS/ALLERGIES REVIEWED: Yes ASA RATING ASA RATING: I AIRWAY ASSESSMENT Airway Assessment Airway patency, oral function limitations, presence of caps, crowns, dentures, partials, and ability to extend neck assessed. AIRWAY ASSESSMENT: Yes MALLAMPATI SCORE MALLAMPATI SCORE: II PRE-SEDATION ASSESSMENT PRE-SEDATION ASSESSMENT: Yes KENN LIN MD Sep 11, 2016 14:27
--- NOTE | 2016-09-11 14:33 | PDOC ---
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 Midline interloop abscess. Post-Procedure Diagnosis Post-Procedure Diagnosis Samr Procedure Performed Procedure Performed CT guided insertion of left flank and interloop abscess drains Type of Anesthesia Type of Anesthesia Local + Mod sedation Estimated Blood Loss EBL: Minimal Specimens Specimans Small samples of grossly purulent material from left flank and interloop abscess separately to micro for aerobic and anaerobic C&S Drain/Tubes Drains/Tubes 12F locking pigtail left flank abscess drain to bulb suction 12F locking pigtail interloop abscess drain to bulb suction Condition of Patient Condition of Patient Stable. No apparent complication. Disposition Disposition From IR/CT to 576. 2 previously placed abscess drains removed. 2 new abscess drains to bulb suction. F/u with general surgery. Full report to follow. KENN LIN MD Sep 11, 2016 14:32
--- NOTE | 2016-09-11 17:26 | RAD ---
CT-guided insertion of left flank abscess drainage catheter CT-guided insertion of mid abdominal interloop abscess drainage catheter Indication: 20-year-old male with history of perforated viscus, with abscess formation. He is status post CT-guided drainage of 2 pelvic abscess drainage catheters. Follow-up CT revealed essentially complete resolution of the previously present pelvic abscesses. However, there has been interval appearance of a new large abscess within left flank and a slightly smaller mid abdominal interloop abscess. CT-guided placement of 2 new drainage catheters has been requested by general surgery. Anesthesia: 38 minutes moderate sedation provided utilizing a total of 3 mg Versed and 150 mcg fentanyl, IV. The patient was appropriately monitored by a qualified independent observer throughout the time of moderate sedation. Consent: The procedure was explained in its entirety to the patient and/or the patient's designated admitting representative by a member of the treatment team. This included a discussion of risks and benefits and commonly accepted alternatives to the procedure, as well as expected consequences of no treatment at all. Discussion of risks included, but was not limited to, those that are most frequent and those that are rare, but possibly severe or life-threatening, as well as the possibility of unforeseen complications. PQRS Compliance Statement: One or more of the following individualized dose reduction techniques was/were utilized for this CT examination or procedure: 1. Automated exposure control. 2. Adjustment of mA and/or kV according to patient size. 3. Iterative reconstruction technique. Procedure: Informed consent was obtained from the patient. He was placed supine on the CT scanner. Preliminary noncontrast CT images confirmed no significant residual abscess formation about his indwelling bilateral pelvic abscess drains. Those CT images also confirmed interval appearance of a new large left flank abscess, as well as a new midline interloop abdominal abscess. Moderate sedation was provided with IV Versed and fentanyl. Left flank abscess drainage catheter placement: A left anterolateral skin site suitable for CT-guided insertion of a left flank abscess drain was selected and marked. That area was prepped and draped in usual sterile fashion. Using aseptic technique, local anesthesia, and CT guidance, a small micropuncture sheath was successfully introduced into the abscess cavity. A small sample of grossly purulent material was aspirated, and was submitted to microbiology for aerobic and anaerobic culture and sensitivity. The micropuncture sheath was then removed over a guidewire. The percutaneous tract was dilated and a 12 [place]guill[place] locking pigtail left flank abscess drainage catheter was easily introduced. Completion CT images documented satisfactory position of the drainage catheter, which was connected to bulb suction, and was secured at the skin exit site utilizing suture and sterile dressing. Patient tolerated the procedure well without apparent complication. Mid abdominal interloop abscess drainage catheter insertion: Following successful placement of the left flank abscess drainage catheter, attention was turned to the midline interloop abscess. A left anterior skin site suitable for CT-guided drain placement was selected and marked. That area was prepped and draped in the usual sterile fashion. Using aseptic technique, local anesthesia, and CT guidance, a small micropuncture sheath was successfully advanced into inferior aspect of the interloop abscess, taking extreme care to avoid adjacent loops of large and small gut. A small sample of grossly. Limited material was aspirated and was submitted to microbiology for aerobic and anaerobic culture and sensitivity. The micropuncture sheath was then removed over a guidewire. The percutaneous tract was dilated and a 12 [place]guillan locking pigtail abscess drainage catheter was easily introduced. Completion CT images documented satisfactory position of the interloop abscess drain, which was connected to bulb suction, and was secured at the skin exit site utilizing suture and sterile dressing. Patient tolerated the procedure well without apparent complication. Following placement of the 2 new abscess drainage catheters, the indwelling bilateral pelvic drainage catheters were successfully removed, and were discarded. Impression: 1. Successful, uneventful CT-guided insertion of left flank 12 [place]guillan locking pigtail abscess drainage catheter, as described. 2. Successful, uneventful CT-guided insertion of mid abdominal interloop 12 [place]guillan locking pigtail abscess drainage catheter, as described.
[2016-09-11] MEDS: ACETAMINOPHEN 650 MG SUPP.RECT. PR PRN (21:14)
[2016-09-11] MEDS ORDERED: [UNRECOGNIZED DRUG - OTHER] IV SCH ×10 (22:00)
[2016-09-11] MEDS ORDERED: DEXTROSE 70% IV SCH ×10 (22:00)
[2016-09-11] MEDS ORDERED: TOTAL PARENTERAL NUTRITION IV SCH ×10 (22:00)
[2016-09-11] MEDS ORDERED: AMINO ACIDS IV SCH ×10 (22:00)
[2016-09-11] MEDS: METOPROLOL TARTRATE 5 MG/5 ML VIAL. IVP SCH (22:05)
[2016-09-12 03:00] VITALS: BP 125/87
[2016-09-12 03:17] LABS: BASO # 0.1 x10^3/uL (0.0-0.2); BASO % 0 % (0-3); EOS % 1 % (0-3); HEMATOCRIT 41.3 % (39.0-53.0); HEMOGLOBIN 13.5 g/dL (13.0-17.5); LYMPH # 1.6 x10^3/uL (1.0-4.8); LYMPH % 6 % (24-48); MEAN CORPUSCULAR HEMOGLOBIN 29 pg (25-35); MEAN CORPUSCULAR HGB CONC 33 g/dL (31-37); MEAN CORPUSCULAR VOLUME 89 fL (79-100); MONO % 3 % (0-9); NEUT % 91 % (31-73); PLATELET COUNT 350 x10^3/uL (140-400); RED BLOOD COUNT 4.65 x10^6/uL (4.30-5.70); RED CELL DISTRIBUTION WIDTH 12.7 % (11.5-14.5); WHITE BLOOD COUNT 26.8 x10^3/uL (4.0-11.0)
[2016-09-12 03:31] LABS: CALCIUM 8.5 mg/dL (8.5-10.1); CREATININE 0.6 mg/dL (0.7-1.3); GFR 173.6; POTASSIUM 5.2 mmol/L (3.5-5.1)
[2016-09-12] MEDS: MEROPENEM 1 GM in IV NORMAL SALINE 100ML 100 ML IV SCH ×3 (05:27→21:28)
[2016-09-12] MEDS: METOPROLOL TARTRATE 5 MG/5 ML VIAL. IVP SCH ×3 (05:29→16:09)
[2016-09-12 07:09] VITALS: BP 120/87
[2016-09-12] MEDS: PANTOPRAZOLE IV PUSH 40 MG VIAL. IVP SCH (08:17)
--- NOTE | 2016-09-12 09:48 | PDOC ---
SURGICAL PROGRESS NOTE Subjective has some belching, no flatus Vital Signs Vital Signs Date Time Temp Pulse Resp B/P Pulse Ox O2 Delivery O2 Flow Rate FiO2 09/12/16 08:00 Room Air 2.0 09/12/16 07:09 99.1 132 18 120/87 95 99.1 Tmax 100.1 I&O Intake and Output 09/12/16 07:00 Intake Total 200 ml Output Total 1065 ml Balance -865 ml Intake Oral 200 ml Output Urine Total 725 ml Drainage Total 340 ml PATIENT HAS A BAKER: No General: Alert, Oriented X3, No acute distress Heart: Other (tachycardiac) Abdomen: Soft, Other (generalized TTP, drains with purulent output) Labs Laboratory Tests Test 09/10/16 11:40 09/11/16 04:00 09/12/16 03:10 09/12/16 04:15 Glucose (Fingerstick) 119mg/dL (70-99) White Blood Count 20.3x10^3/uL (4.0-11.0) 26.8x10^3/uL (4.0-11.0) Red Blood Count 3.95x10^6/uL (4.30-5.70) 4.65x10^6/uL (4.30-5.70) Hemoglobin 11.5g/dL (13.0-17.5) 13.5g/dL (13.0-17.5) Hematocrit 34.8% (39.0-53.0) 41.3% (39.0-53.0) Mean Corpuscular Volume 88fL (79-100) 89fL (79-100) Mean Corpuscular Hemoglobin 29pg (25-35) 29pg (25-35) Mean Corpuscular Hemoglobin Concent 33g/dL (31-37) 33g/dL (31-37) Red Cell Distribution Width 12.6% (11.5-14.5) 12.7% (11.5-14.5) Platelet Count 329x10^3/uL (140-400) 350x10^3/uL (140-400) Neutrophils (%) (Auto) 87% (31-73) 91% (31-73) Lymphocytes (%) (Auto) 8% (24-48) 6% (24-48) Monocytes (%) (Auto) 5% (0-9) 3% (0-9) Eosinophils (%) (Auto) 0% (0-3) 1% (0-3) Basophils (%) (Auto) 1% (0-3) 0% (0-3) Neutrophils # (Auto) 17.6x10^3uL (1.8-7.7) 24.3x10^3uL (1.8-7.7) Lymphocytes # (Auto) 1.5x10^3/uL (1.0-4.8) 1.6x10^3/uL (1.0-4.8) Monocytes # (Auto) 1.0x10^3/uL (0.0-1.1) 0.7x10^3/uL (0.0-1.1) Eosinophils # (Auto) 0.0x10^3/uL (0.0-0.7) 0.1x10^3/uL (0.0-0.7) Basophils # (Auto) 0.1x10^3/uL (0.0-0.2) 0.1x10^3/uL (0.0-0.2) Sodium Level 137mmol/L (136-145) 133mmol/L (136-145) Potassium Level 4.3mmol/L (3.5-5.1) 5.2mmol/L (3.5-5.1) Chloride Level 100mmol/L (98-107) 99mmol/L (98-107) Carbon Dioxide Level 24mmol/L (21-32) 23mmol/L (21-32) Anion Gap 13 (6-14) 11 (6-14) Blood Urea Nitrogen 9mg/dL (8-26) 10mg/dL (8-26) Creatinine 0.6mg/dL (0.7-1.3) 0.6mg/dL (0.7-1.3) Estimated GFR (Cockcroft-Gault) 173.6 173.6 BUN/Creatinine Ratio 15 (6-20) Glucose Level 108mg/dL (70-99) 118mg/dL (70-99) Calcium Level 8.6mg/dL (8.5-10.1) 8.5mg/dL (8.5-10.1) Phosphorus Level 4.4mg/dL (2.6-4.7) Magnesium Level 2.0mg/dL (1.8-2.4) Total Bilirubin 1.2mg/dL (0.2-1.0) Aspartate Amino Transf (AST/SGOT) 52U/L (15-37) Alanine Aminotransferase (ALT/SGPT) 75U/L (16-63) Alkaline Phosphatase 181U/L (46-116) Total Protein 7.0g/dL (6.4-8.2) Albumin 2.5g/dL (3.4-5.0) Albumin/Globulin Ratio 0.6 (1.0-1.7) Lactic Acid Level 0.7mmol/L (0.4-2.0) Laboratory Tests Test 09/12/16 03:10 09/12/16 04:15 White Blood Count 26.8x10^3/uL (4.0-11.0) Red Blood Count 4.65x10^6/uL (4.30-5.70) Hemoglobin 13.5g/dL (13.0-17.5) Hematocrit 41.3% (39.0-53.0) Mean Corpuscular Volume 89fL (79-100) Mean Corpuscular Hemoglobin 29pg (25-35) Mean Corpuscular Hemoglobin Concent 33g/dL (31-37) Red Cell Distribution Width 12.7% (11.5-14.5) Platelet Count 350x10^3/uL (140-400) Neutrophils (%) (Auto) 91% (31-73) Lymphocytes (%) (Auto) 6% (24-48) Monocytes (%) (Auto) 3% (0-9) Eosinophils (%) (Auto) 1% (0-3) Basophils (%) (Auto) 0% (0-3) Neutrophils # (Auto) 24.3x10^3uL (1.8-7.7) Lymphocytes # (Auto) 1.6x10^3/uL (1.0-4.8) Monocytes # (Auto) 0.7x10^3/uL (0.0-1.1) Eosinophils # (Auto) 0.1x10^3/uL (0.0-0.7) Basophils # (Auto) 0.1x10^3/uL (0.0-0.2) Sodium Level 133mmol/L (136-145) Potassium Level 5.2mmol/L (3.5-5.1) Chloride Level 99mmol/L (98-107) Carbon Dioxide Level 23mmol/L (21-32) Anion Gap 11 (6-14) Blood Urea Nitrogen 10mg/dL (8-26) Creatinine 0.6mg/dL (0.7-1.3) Estimated GFR (Cockcroft-Gault) 173.6 Glucose Level 118mg/dL (70-99) Calcium Level 8.5mg/dL (8.5-10.1) Lactic Acid Level 0.7mmol/L (0.4-2.0) Problem List Problems Medical Problems: (1) Abdominal pain Status: Acute (2) Pneumoperitoneum Status: Acute Assessment/Plan perforated bowel, s/p drains discussed surgery with Sebas. explained that if he does not improve in the next 48-72 hrs need to go to the OR. I answered his questions re management of a temporary stoma. he understands Problems: RODRIGUE LÓPEZ MD Sep 12, 2016 09:48
--- NOTE | 2016-09-12 10:04 | PDOC2 ---
BOYD MONTANA COUNTER ATTENDANT 09/12/16 1004: CARDIAC CONSULT DATE OF CONSULT Date of Consult DATE: 09/12/16 TIME: 09:50 REASON FOR CONSULT Reason for Consult: ST REFERRING PHYSICIAN Referring Physician: Chas SOURCE Source: Chart review, Patient HISTORY OF PRESENT ILLNESS HISTORY OF PRESENT ILLNESS This is a 20 yo male admitted for complains of abdominal pain. After further workup he was then noted with diverticulitis with perforated viscous and abscess. IR has then put abdominal drains. He is currently being treated with IV antibiotics with possible surgery in the next 2-3 days. Consult is for tachycardia which has been noted with sinus tach. Denies any significant heart history nor childhood heart diseases. Pt has no significant medical history, no use of recreational drugs. Denies any CP, SOA, nor palpitations even before hospitalization. Denies any surgeries in the past nor any significant family hx of heart disease. Denies any routine home meds. PAST MEDICAL HISTORY Past Medical History No pertinent history PAST SURGICAL HISTORY Past Surgical History No pertinent history FAMILY HISTORY Family History noncontributory to CV SOCIAL HISTORY Smoke: No ALCOHOL: none Drugs: None Lives: with Family CURRENT MEDICATIONS CURRENT MEDICATIONS Current Medications Medications (Trade) Dose Ordered Sig/Poncho Route PRN Reason Start Time Stop Time Status Last Admin Dose Admin Sodium Chloride/ Potassium Chloride/ Potassium Phosphate/ Magnesium Sulfate/ Calcium Gluconate/ Multivitamins/ Minerals/Chromium/ Copper/Manganese/ Seleni/Zn/Total Parenteral Nutrition/Amino Acids/Dextrose/ Fat Emulsion Intravenous (Sodium Chloride/ Potassium Phospha... 1,512 ml @ 63 mls/hr TPN CONT IV 09/11/16 22:00 09/12/16 21:59 09/11/16 21:06 Lidocaine/Sodium Bicarbonate (Buffered Lidocaine 1%) 20 ml 1X ONCE IJ 09/11/16 14:00 09/11/16 14:01 DC 09/11/16 14:00 Midazolam HCl (Versed) 5 mg 1X ONCE IV 09/11/16 14:00 09/11/16 14:01 DC 09/11/16 14:00 Fentanyl Citrate (Fentanyl 2ml Vial) 100 mcg 1X ONCE IV 09/11/16 14:00 09/11/16 14:01 DC 09/11/16 14:00 Metoprolol Tartrate (Lopressor) 5 mg Q6HRS IVP 09/11/16 22:00 09/12/16 05:29 ALLERGIES ALLERGIES: Coded Allergies: No Known Drug Allergies (Unverified , 08/30/16) ROS Review of System 14 point ROS evaluated with pertinent positives noted per HPI PHYSICAL EXAM General: Alert, Oriented X3, Cooperative, No acute distress HEENT: Atraumatic, Mucous membr. moist/pink Lungs: Other (diminished bases) Heart: Normal S1, Normal S2, No murmurs, Other (Sinus tach) Abdomen: Other (diffuse abdominal tenderness) Extremities: No cyanosis, No edema Skin: No breakdown, Other (abdominal drain in place) Neuro: Normal speech, Sensation intact Psych/Mental Status: Mental status NL, Mood NL MUSCULOSKELETAL: Full range of motion without pain VITALS VITALS Vital Signs Date Time Temp Pulse Resp B/P Pulse Ox O2 Delivery O2 Flow Rate FiO2 09/12/16 08:00 Room Air 2.0 09/12/16 07:09 99.1 132 18 120/87 95 99.1 LABS Lab: Laboratory Tests Test 09/12/16 03:10 09/12/16 04:15 White Blood Count 26.8x10^3/uL (4.0-11.0) Red Blood Count 4.65x10^6/uL (4.30-5.70) Hemoglobin 13.5g/dL (13.0-17.5) Hematocrit 41.3% (39.0-53.0) Mean Corpuscular Volume 89fL (79-100) Mean Corpuscular Hemoglobin 29pg (25-35) Mean Corpuscular Hemoglobin Concent 33g/dL (31-37) Red Cell Distribution Width 12.7% (11.5-14.5) Platelet Count 350x10^3/uL (140-400) Neutrophils (%) (Auto) 91% (31-73) Lymphocytes (%) (Auto) 6% (24-48) Monocytes (%) (Auto) 3% (0-9) Eosinophils (%) (Auto) 1% (0-3) Basophils (%) (Auto) 0% (0-3) Neutrophils # (Auto) 24.3x10^3uL (1.8-7.7) Lymphocytes # (Auto) 1.6x10^3/uL (1.0-4.8) Monocytes # (Auto) 0.7x10^3/uL (0.0-1.1) Eosinophils # (Auto) 0.1x10^3/uL (0.0-0.7) Basophils # (Auto) 0.1x10^3/uL (0.0-0.2) Sodium Level 133mmol/L (136-145) Potassium Level 5.2mmol/L (3.5-5.1) Chloride Level 99mmol/L (98-107) Carbon Dioxide Level 23mmol/L (21-32) Anion Gap 11 (6-14) Blood Urea Nitrogen 10mg/dL (8-26) Creatinine 0.6mg/dL (0.7-1.3) Estimated GFR (Cockcroft-Gault) 173.6 Glucose Level 118mg/dL (70-99) Calcium Level 8.5mg/dL (8.5-10.1) Lactic Acid Level 0.7mmol/L (0.4-2.0) ASSESSMENT/PLAN ASSESSMENT/PLAN 1. Sinus tachycardia: Currently in the 130s. Pt is currently on metoprolol IV. BP stable. EKG Sinus tach with S1Q3T3. Sinus tach likely reactive due to fever and infectious process. Recommend start of VTE prophylaxis, will defer to PCP. Will obtain TTE and note right side pressures and if notable changes then will consider for chest CTA. Currently CP free and no SOA. Start IS, continue supportive care. 2. Abdominal pain/diverticulitis/pneumoperitoneum: IV antibiotics per ID. Multiple consultants with possible surgery in 2-3 days. 3. Mild hyperkalemia: Hold TPN, start D5NS x1 liter at 125 ml/hr, then restart TPN with new formulation this evening. Problems: GILBERT MONROY MD 09/12/16 1517: CARDIAC CONSULT ALLERGIES ALLERGIES: Coded Allergies: No Known Drug Allergies (Unverified , 08/30/16) ASSESSMENT/PLAN ASSESSMENT/PLAN Patient seen and examined. Agree with MARINE ARCHITECT's assessment and plan. Sinus tachycardia most probably physiologic secondary to combination of fever/pain/ SIRS. 2-D echo showed normal LV systolic function without any wall motion abnormalities. The right ventricular systolic function and size are normal. Expect resolution of sinus tachycardia once active issues resolved. Continue beta blockers as needed. No further cardiac workup is indicated at this time. Thank you for your consultation. Problems: BOYD MONTANA APRN Sep 12, 2016 10:04 GILBERT MONROY MD Sep 12, 2016 15:17
[2016-09-12] MEDS: FLUCONAZOLE 400MG/200ML PREMIX 200 ML IV SCH (10:30)
[2016-09-12] MEDS ORDERED: IV DEXTROSE 5% - 0.9 % NACL 1,000 ML IV ONE (10:30)
--- NOTE | 2016-09-12 10:38 | EKG ---
[facility] [address] [place] [address] Test Date: 2016-09-12 Test Time: 10:36:21 Pat Name: YINA KEENE Department: Room: 576 1 Gender: M Urban Anthropologist: SAKSHI : 1995 Requested By: BOYD MONTANA Order Number: [id number] Reading MD: Wilfredo Jaeger Measurements Intervals [place] Rate: 139 P: -34 ND: 74 QRS: 24 QRSD: 88 T: -5 QT: 332 QTc: 511 Interpretive Statements SINUS TACHYCARDIA NON-SPECIFIC ST/T CHANGES Electronically Signed On 09-12-2016 14:08:34 SUSTAINABLE SYSTEMS ANALYST by Wilfredo Jaeger
[2016-09-12 10:58] VITALS: BP 124/90
--- NOTE | 2016-09-12 11:17 | PDOC ---
Infectious Disease Note Subjective Subjective ROS ROS Vital Sign Vital Signs Vital Signs Date Time Temp Pulse Resp B/P Pulse Ox O2 Delivery O2 Flow Rate FiO2 09/12/16 10:58 99.0 138 18 124/90 95 Room Air 99.0 09/12/16 08:00 2.0 Labs Lab Laboratory Tests Test 09/12/16 03:10 09/12/16 04:15 09/12/16 05:00 White Blood Count 26.8x10^3/uL (4.0-11.0) Red Blood Count 4.65x10^6/uL (4.30-5.70) Hemoglobin 13.5g/dL (13.0-17.5) Hematocrit 41.3% (39.0-53.0) Mean Corpuscular Volume 89fL (79-100) Mean Corpuscular Hemoglobin 29pg (25-35) Mean Corpuscular Hemoglobin Concent 33g/dL (31-37) Red Cell Distribution Width 12.7% (11.5-14.5) Platelet Count 350x10^3/uL (140-400) Neutrophils (%) (Auto) 91% (31-73) Lymphocytes (%) (Auto) 6% (24-48) Monocytes (%) (Auto) 3% (0-9) Eosinophils (%) (Auto) 1% (0-3) Basophils (%) (Auto) 0% (0-3) Neutrophils # (Auto) 24.3x10^3uL (1.8-7.7) Lymphocytes # (Auto) 1.6x10^3/uL (1.0-4.8) Monocytes # (Auto) 0.7x10^3/uL (0.0-1.1) Eosinophils # (Auto) 0.1x10^3/uL (0.0-0.7) Basophils # (Auto) 0.1x10^3/uL (0.0-0.2) Sodium Level 133mmol/L (136-145) Potassium Level 5.2mmol/L (3.5-5.1) Chloride Level 99mmol/L (98-107) Carbon Dioxide Level 23mmol/L (21-32) Anion Gap 11 (6-14) Blood Urea Nitrogen 10mg/dL (8-26) Creatinine 0.6mg/dL (0.7-1.3) Estimated GFR (Cockcroft-Gault) 173.6 Glucose Level 118mg/dL (70-99) Calcium Level 8.5mg/dL (8.5-10.1) Lactic Acid Level 0.7mmol/L (0.4-2.0) Magnesium Level 2.2mg/dL (1.8-2.4) Micro scherichia coli Moderate growth AEROBIC RES 2 Final Escherichia coli Moderate growth AEROBIC RES 3 Final Comment Streptococcus anginosus group Heavy growth ANTIMICROBIAL SUSCEPTIBILITY Final Comment S = Susceptible; I = Intermediate; R = Resistant P = Positive; N = Negative MICS are expressed in micrograms per mL Antibiotic RSLT#1 RSLT#2 RSLT#3 RSLT#4 Amoxicillin/Clavulanic Acid S S Ampicillin R R Cefepime S S Ceftriaxone S S CONTINUED ON NEXT PAGE RUN DATE: 09/07/16 PAGE 2 RUN TIME: 1323 [facility] [address] [place] [address] Conor Young M.D., Weigh Boss SPEC: [id number] PATIENT: YINA KEENE [id number] ( Continued) Procedure Result ANTIMICROBIAL SUSCEPTIBILITY Final (continued) Cefuroxime S S Ciprofloxacin R R Ertapenem S S Gentamicin S S Imipenem S S Levofloxacin R R Piperacillin R R Tetracycline S R Tobramycin S S Trimethoprim/Sulfa R R Performed at: [address] [id number] Warp Bleaching Vat Tender: Bushra Bañuelos MD, Phone: [phone] CT 09/10 IMPRESSION: 1. Successful percutaneous drainage of 2 pelvic fluid collections as described above. 2. Moderate-sized encapsulated fluid collections in the left paracolic gutter and upper pelvis near the midline, and a smaller fluid collection along the lower pole of the left kidney suggest additional abscesses. 3. Tiny amount of fluid in the deep pelvis which may represent free fluid. 4. Mural thickening involving small bowel loops adjacent to the midline pelvic fluid collection probably due to inflammation, with evidence of associated partial small bowel obstruction. Objective Assessment Diverticulitis Perf viscous -on Zosyn initially but changed to Meropenem 09/04 recurrent Abd abscess on CT 09/10- s/ p [address] 09/04 - Ecoli/second Ecoli/ Strep anginosis Leukocytosis - better. clinically looks better Plan Plan of Care DID NOT SEE as off the floor Repeat WBC in am - hopefully Leukocytosis and fever post procedure MIRIAM ORTEZ MD Sep 12, 2016 11:17
--- NOTE | 2016-09-12 11:21 | RAD ---
Indication: Small bowel obstruction, follow-up. Time of exam 11 0 2:00 AM Correlation is made with prior study from 09/07/2016. Two pigtail drains overlie the left lower quadrant. There continues to be moderate gaseous distention of small bowel loops particular in the left abdomen with air-fluid levels present. This is similar to exam 5 days earlier. Bowel loops the right abdomen are normal caliber. There is some mild distention of probable colon and perhaps the stomach as well in the upper abdomen. No wall thickening or pneumatosis is identified. No definite free air is identified. There is gas within the rectum. Impression: Continued gaseous distention of bowel loops within the mid and left abdomen, similar to exam from 5 days earlier. There is gas noted within the colon and the features are again suggestive of either partial small bowel obstruction versus ileus. Continued progress films are recommended.
--- NOTE | 2016-09-12 11:53 | PDOC ---
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 ) Extremities: No cyanosis, No edema Skin: Other (abdominal drain in place) Labs LABS Laboratory Tests Test 09/12/16 03:10 09/12/16 04:15 09/12/16 05:00 White Blood Count 26.8x10^3/uL (4.0-11.0) Red Blood Count 4.65x10^6/uL (4.30-5.70) Hemoglobin 13.5g/dL (13.0-17.5) Hematocrit 41.3% (39.0-53.0) Mean Corpuscular Volume 89fL (79-100) Mean Corpuscular Hemoglobin 29pg (25-35) Mean Corpuscular Hemoglobin Concent 33g/dL (31-37) Red Cell Distribution Width 12.7% (11.5-14.5) Platelet Count 350x10^3/uL (140-400) Neutrophils (%) (Auto) 91% (31-73) Lymphocytes (%) (Auto) 6% (24-48) Monocytes (%) (Auto) 3% (0-9) Eosinophils (%) (Auto) 1% (0-3) Basophils (%) (Auto) 0% (0-3) Neutrophils # (Auto) 24.3x10^3uL (1.8-7.7) Lymphocytes # (Auto) 1.6x10^3/uL (1.0-4.8) Monocytes # (Auto) 0.7x10^3/uL (0.0-1.1) Eosinophils # (Auto) 0.1x10^3/uL (0.0-0.7) Basophils # (Auto) 0.1x10^3/uL (0.0-0.2) Sodium Level 133mmol/L (136-145) Potassium Level 5.2mmol/L (3.5-5.1) Chloride Level 99mmol/L (98-107) Carbon Dioxide Level 23mmol/L (21-32) Anion Gap 11 (6-14) Blood Urea Nitrogen 10mg/dL (8-26) Creatinine 0.6mg/dL (0.7-1.3) Estimated GFR (Cockcroft-Gault) 173.6 Glucose Level 118mg/dL (70-99) Calcium Level 8.5mg/dL (8.5-10.1) Lactic Acid Level 0.7mmol/L (0.4-2.0) Magnesium Level 2.2mg/dL (1.8-2.4) Assessment and Plan Assessmemt and Plan Problems Medical Problems: (1) Abdominal pain Status: Acute (2) Pneumoperitoneum Status: Acute Problems: Comment Review of Relevant I have reviewed the following items crystal (where applicable) has been applied. Labs Laboratory Tests Test 09/11/16 04:00 09/12/16 03:10 09/12/16 04:15 09/12/16 05:00 White Blood Count 20.3x10^3/uL (4.0-11.0) 26.8x10^3/uL (4.0-11.0) Red Blood Count 3.95x10^6/uL (4.30-5.70) 4.65x10^6/uL (4.30-5.70) Hemoglobin 11.5g/dL (13.0-17.5) 13.5g/dL (13.0-17.5) Hematocrit 34.8% (39.0-53.0) 41.3% (39.0-53.0) Mean Corpuscular Volume 88fL (79-100) 89fL (79-100) Mean Corpuscular Hemoglobin 29pg (25-35) 29pg (25-35) Mean Corpuscular Hemoglobin Concent 33g/dL (31-37) 33g/dL (31-37) Red Cell Distribution Width 12.6% (11.5-14.5) 12.7% (11.5-14.5) Platelet Count 329x10^3/uL (140-400) 350x10^3/uL (140-400) Neutrophils (%) (Auto) 87% (31-73) 91% (31-73) Lymphocytes (%) (Auto) 8% (24-48) 6% (24-48) Monocytes (%) (Auto) 5% (0-9) 3% (0-9) Eosinophils (%) (Auto) 0% (0-3) 1% (0-3) Basophils (%) (Auto) 1% (0-3) 0% (0-3) Neutrophils # (Auto) 17.6x10^3uL (1.8-7.7) 24.3x10^3uL (1.8-7.7) Lymphocytes # (Auto) 1.5x10^3/uL (1.0-4.8) 1.6x10^3/uL (1.0-4.8) Monocytes # (Auto) 1.0x10^3/uL (0.0-1.1) 0.7x10^3/uL (0.0-1.1) Eosinophils # (Auto) 0.0x10^3/uL (0.0-0.7) 0.1x10^3/uL (0.0-0.7) Basophils # (Auto) 0.1x10^3/uL (0.0-0.2) 0.1x10^3/uL (0.0-0.2) Sodium Level 137mmol/L (136-145) 133mmol/L (136-145) Potassium Level 4.3mmol/L (3.5-5.1) 5.2mmol/L (3.5-5.1) Chloride Level 100mmol/L (98-107) 99mmol/L (98-107) Carbon Dioxide Level 24mmol/L (21-32) 23mmol/L (21-32) Anion Gap 13 (6-14) 11 (6-14) Blood Urea Nitrogen 9mg/dL (8-26) 10mg/dL (8-26) Creatinine 0.6mg/dL (0.7-1.3) 0.6mg/dL (0.7-1.3) Estimated GFR (Cockcroft-Gault) 173.6 173.6 BUN/Creatinine Ratio 15 (6-20) Glucose Level 108mg/dL (70-99) 118mg/dL (70-99) Calcium Level 8.6mg/dL (8.5-10.1) 8.5mg/dL (8.5-10.1) Phosphorus Level 4.4mg/dL (2.6-4.7) Magnesium Level 2.0mg/dL (1.8-2.4) 2.2mg/dL (1.8-2.4) Total Bilirubin 1.2mg/dL (0.2-1.0) Aspartate Amino Transf (AST/SGOT) 52U/L (15-37) Alanine Aminotransferase (ALT/SGPT) 75U/L (16-63) Alkaline Phosphatase 181U/L (46-116) Total Protein 7.0g/dL (6.4-8.2) Albumin 2.5g/dL (3.4-5.0) Albumin/Globulin Ratio 0.6 (1.0-1.7) Lactic Acid Level 0.7mmol/L (0.4-2.0) Laboratory Tests Test 09/12/16 03:10 09/12/16 04:15 09/12/16 05:00 White Blood Count 26.8x10^3/uL (4.0-11.0) Red Blood Count 4.65x10^6/uL (4.30-5.70) Hemoglobin 13.5g/dL (13.0-17.5) Hematocrit 41.3% (39.0-53.0) Mean Corpuscular Volume 89fL (79-100) Mean Corpuscular Hemoglobin 29pg (25-35) Mean Corpuscular Hemoglobin Concent 33g/dL (31-37) Red Cell Distribution Width 12.7% (11.5-14.5) Platelet Count 350x10^3/uL (140-400) Neutrophils (%) (Auto) 91% (31-73) Lymphocytes (%) (Auto) 6% (24-48) Monocytes (%) (Auto) 3% (0-9) Eosinophils (%) (Auto) 1% (0-3) Basophils (%) (Auto) 0% (0-3) Neutrophils # (Auto) 24.3x10^3uL (1.8-7.7) Lymphocytes # (Auto) 1.6x10^3/uL (1.0-4.8) Monocytes # (Auto) 0.7x10^3/uL (0.0-1.1) Eosinophils # (Auto) 0.1x10^3/uL (0.0-0.7) Basophils # (Auto) 0.1x10^3/uL (0.0-0.2) Sodium Level 133mmol/L (136-145) Potassium Level 5.2mmol/L (3.5-5.1) Chloride Level 99mmol/L (98-107) Carbon Dioxide Level 23mmol/L (21-32) Anion Gap 11 (6-14) Blood Urea Nitrogen 10mg/dL (8-26) Creatinine 0.6mg/dL (0.7-1.3) Estimated GFR (Cockcroft-Gault) 173.6 Glucose Level 118mg/dL (70-99) Calcium Level 8.5mg/dL (8.5-10.1) Lactic Acid Level 0.7mmol/L (0.4-2.0) Magnesium Level 2.2mg/dL (1.8-2.4) Microbiology 08/30/16 Blood Culture - Final, Complete NO GROWTH AFTER 5 DAYS 09/11/16 Gram Stain - Final, Complete 08/30/16 Urine Culture - Final, Complete 08/30/16 Urine Culture Result 1 (TOAN) - Final, Complete 09/04/16 Gram Stain - Final, Complete Medications Current Medications Sodium Chloride (Iv Sodium Chloride 0.9% 1000ml Bag) 1,000 ml @ 1,000 mls/hr Q1H IV Last administered on 08/30/16t 19:58; Start 08/30/16 at 19:45; Stop 07/06 at 20:44; Status DC Morphine Sulfate 4 mg 1X ONCE IV Last administered on 08/30/16 19:58; Start 08/30/16 at 19:45; Stop 08/30/16 at 19:46; Status DC Ondansetron HCl (Zofran) 4 mg 1X ONCE IV Last administered on 08/30/16 19:57 ; Start 08/30/16 at 19:45; Stop 08/30/16 at 19:46; Status DC Iohexol (Omnipaque 300 Mg/ml) 75 ml 1X ONCE IV Last administered on 08/30/16 20:57; Start 08/30/16 at 20:00; Stop 08/30/16 at 20:01; Status DC Morphine Sulfate 4 mg 1X ONCE IV Last administered on 08/30/16 22:22; Start 08/30/16 at 21:45; Stop 08/30/16 at 21:46; Status DC Piperacillin Sod/ Tazobactam Sod 1 each 1 each PRN DAILY PRN MC SEE COMMENTS; Start 08/30/16 at 21:45; Stop 09/02/16 at 13:43; Status DC Piperacillin Sod/ Tazobactam Sod/ Sodium Chloride (Zosyn/Iv Sodium Chloride 0.9 % 50ml) 50 ml @ 100 mls/hr Q6HRS IV Last administered on 09/04/16 05:07; Start 08/30/16 at 22:00; Stop 09/04/16 at 10:30; Status DC Ondansetron HCl (Zofran) 4 mg PRN Q8HRS PRN IV NAUSEA/VOMITING; Start 08/30/16 at 22:30; Stop 08/31/16 at 22:29; Status DC Morphine Sulfate 4 mg 4 mg PRN Q2HR PRN IV PAIN Last administered on 08/30/16 23:16; Start 08/30/16 at 22:30; Stop 08/31/16 at 22:29; Status DC Sodium Chloride (Iv Sodium Chloride 0.9% 1000ml Bag) 1,000 ml @ 125 mls/hr Q8H IV Last administered on 08/31/16 09:13; Start 08/30/16 at 22:30; Stop at 13:05; Status DC Acetaminophen 650 mg 650 mg PRN Q4HRS PRN PO FEVER Last administered on 23:15; Start 08/30/16 at 22:30; Stop 08/31/16 at 22:29; Status DC Hydromorphone HCl 30 ml @ 0 mls/hr CONT PRN PRN IV PROTOCOL Last administered on 09/08/16 04:45; Start 08/30/16 at 23:30 Potassium Chloride/Dextrose/ Sod Cl 1,000 ml @ 100 mls/hr Q10H IV Last administered on 09/01/16 03:52; Start 08/31/16 at 13:15; Stop 09/01/16 at 14:37 ; Status DC Sodium Chloride 1,000 ml @ 1,000 mls/hr 1X ONCE IV Last administered on 14:24; Start 08/31/16 at 13:15; Stop 08/31/16 at 14:14; Status DC Albumin Human (Plasmanate) 500 ml @ 125 mls/hr 1X ONCE IV Last administered on 08/31/16 17:21; Start 08/31/16 at 17:00; Stop 08/31/16 at 20:59; Status DC Ondansetron HCl 4 mg 4 mg PRN Q6HRS PRN IV NAUSEA/VOMITING; Start 08/31/16 at 22:45 Amino Acids/ Glycerin/ Electrolytes (Procalamine) 1,000 ml @ 100 mls/hr Q10H IV Last administered on 09/05/16 10:00; Start 09/01/16 at 14:45; Stop at 21:59; Status DC Acetaminophen (Tylenol) 650 mg PRN Q4HRS PRN [place] MILD PAIN / TEMP Last administered on 09/11/16 21:14; Start 09/01/16 at 20:30 Lorazepam (Ativan) 1 mg PRN Q4HRS PRN IV ANXIETY / AGITATION Last administered on 09/03/16 17:57; Start 09/02/16 at 10:30 Saliva Substitute (Biotene Moisturizing Mouth) 2 spray PRN Q15MIN PRN PO DRY MOUTH Last administered on 09/02/16 18:13; Start 09/02/16 at 10:30 Iohexol (Omnipaque 240 Mg/ml) 30 ml 1X ONCE PO Last administered on 09/03/16 10:18; Start 09/03/16 at 09:00; Stop 09/03/16 at 09:01; Status DC Iohexol (Omnipaque 300 Mg/ml) 75 ml 1X ONCE IV Last administered on 09/03/16 10:18; Start 09/03/16 at 09:00; Stop 09/03/16 at 09:01; Status DC Info (Do NOT chart on this entry -- for MONITORING) 1 each PRN DAILY PRN MC SEE COMMENTS; Start 09/03/16 at 08:45; Stop 09/05/16 at 08:44; Status DC Info 1 each PRN DAILY PRN MC SEE COMMENTS Last administered on 09/11/16 13:40 ; Start 09/04/16 at 15:00 Midazolam HCl (Versed) 5 mg STK-MED ONCE .ROUTE ; Start 09/04/16 at 09:54; Stop 09/04/16 at 09:55; Status DC Fentanyl Citrate (Fentanyl 5ml Vial) 250 mcg STK-MED ONCE .ROUTE ; Start at 09:54; Stop 09/04/16 at 09:55; Status DC Lidocaine/Sodium Bicarbonate 20 ml 20 ml STK-MED ONCE IJ ; Start 09/04/16 at 09: 55; Stop 09/04/16 at 09:56; Status DC Meropenem 1 gm/ Sodium Chloride 100 ml @ 200 mls/hr Q8HRS IV Last administered on 09/12/16 05:27; Start 09/04/16 at 14:00 Fluconazole/ Sodium Chloride (Diflucan 400mg/ 200ml Premix) 200 ml @ 100 mls/ hr Q24H IV Last administered on 09/12/16 10:30; Start 09/04/16 at 11:00 Lidocaine/Sodium Bicarbonate (Buffered Lidocaine 1%) 3 ml 1X ONCE IJ Last administered on 09/04/16 10:49; Start 09/04/16 at 10:45; Stop 09/04/16 at 10:48 ; Status DC Midazolam HCl (Versed) 0.5 mg 1X ONCE IV Last administered on 09/04/16 10:50 ; Start 09/04/16 at 10:45; Stop 09/04/16 at 10:48; Status DC Fentanyl Citrate 100 mcg 100 mcg 1X ONCE IV Last administered on 09/04/16 10: 50; Start 09/04/16 at 10:45; Stop 09/04/16 at 10:48; Status DC Sodium Chloride 90 meq/Potassium Chloride 50 meq/ Potassium Phosphate 13.6 mmol/ Magnesium Sulfate 10 meq/ Calcium Gluconate 10 meq/ Multivitamins/ Minerals 10 ml/ Chromium/Copper/ Manganese/Seleni/ Zn 1 ml/Total Parenteral Nutrition/Amino Acids/Dextrose/ Fat Emulsion Intravenous 1,512 ml @ 63 mls/hr TPN CONT IV Last administered on 09/05/16 20:50; Start 09/05/16 at 22:00; Stop 09/06/16 at 21:59; Status DC Levofloxacin/ Dextrose 150 ml @ 100 mls/hr 1X ONCE IV Last administered on 09:00; Start 09/06/16 at 09:00; Stop 09/06/16 at 10:29; Status DC Sodium Chloride/ Potassium Chloride/ Potassium Phosphate/ Magnesium Sulfate/ Calcium Gluconate/ Multivitamins/ Minerals/Chromium/ Copper/Manganese/ Seleni/Zn /Total Parenteral Nutrition/Amino Acids/Dextrose/ Fat Emulsion Intravenous ( Sodium Chloride/ Potassium Phospha... 1,512 ml @ 63 mls/hr TPN CONT IV Last administered on 09/06/16 21:49; Start 09/06/16 at 22:00; Stop 09/07/16 at 21:59 ; Status DC Alteplase, Recombinant (Cathflo) 2 mg 1X ONCE INT CAT Last administered on 20:43; Start 09/07/16 at 10:00; Stop 09/07/16 at 10:01; Status DC Vancomycin HCl (Vanco Per Pharmacy) 1 each PRN DAILY PRN MC SEE COMMENTS Last administered on 09/08/16 16:02; Start 09/07/16 at 10:30; Stop 09/11/16 at 10:23 ; Status DC Gentamicin Sulfate 1 each 1 each PRN DAILY PRN MC SEE COMMENTS; Start 09/07/16 at 10:15; Stop 09/07/16 at 13:00; Status DC Vancomycin HCl 2 gm/Sodium Chloride 500 ml @ 250 mls/hr 1X ONCE IV Last administered on 09/07/16 14:58; Start 09/07/16 at 11:00; Stop 09/07/16 at 12:59 ; Status DC Gentamicin Sulfate 500 mg/ Sodium Chloride 112.5 ml @ 112.5 mls/ hr 1X ONCE IV Last administered on 09/07/16 12:52; Start 09/07/16 at 11:00; Stop at 11:59; Status DC Sodium Chloride 90 meq/Potassium Chloride 50 meq/ Potassium Phosphate 13.6 mmol/ Magnesium Sulfate 10 meq/ Calcium Gluconate 10 meq/ Multivitamins/ Minerals 10 ml/ Chromium/Copper/ Manganese/Seleni/ Zn 1 ml/Total Parenteral Nutrition/Amino Acids/Dextrose/ Fat Emulsion Intravenous 1,512 ml @ 63 mls/hr TPN CONT IV Last administered on 09/07/16 21:41; Start 09/07/16 at 22:00; Stop 09/08/16 at 21:59; Status DC Vancomycin HCl/ Sodium Chloride (Iv Sodium Chloride 0.9% 250ml) 250 ml @ 167 mls/hr Q8H IV Last administered on 09/08/16 05:39; Start 09/07/16 at 23:00; Stop 09/08/16 at 15:54; Status DC Vancomycin HCl 1 each 1 each 1X ONCE MC Last administered on 09/08/16 14:30; Start 09/08/16 at 14:30; Stop 09/08/16 at 14:31; Status DC Sodium Chloride/ Potassium Chloride/ Potassium Phosphate/ Magnesium Sulfate/ Calcium Gluconate/ Multivitamins/ Minerals/Chromium/ Copper/Manganese/ Seleni/Zn /Total Parenteral Nutrition/Amino Acids/Dextrose/ Fat Emulsion Intravenous ( Sodium Chloride/ Potassium Phospha... 1,512 ml @ 63 mls/hr TPN CONT IV Last administered on 09/08/16 22:23; Start 09/08/16 at 22:00; Stop 09/09/16 at 21:59 ; Status DC Pantoprazole Sodium 40 mg 40 mg DAILYAC IVP Last administered on 09/12/16 08: 17; Start 09/08/16 at 15:00 Vancomycin HCl 1.25 gm/Sodium Chloride 250 ml @ 167 mls/hr Q6HRS IV Last administered on 09/11/16 06:14; Start 09/08/16 at 17:00; Stop 09/11/16 at 10:23 ; Status DC Sodium Chloride 120 meq/Potassium Chloride 50 meq/ Potassium Phosphate 13.6 mmol /Magnesium Sulfate 10 meq/ Calcium Gluconate 10 meq/ Multivitamins/ Minerals 10 ml/ Chromium/Copper/ Manganese/Seleni/ Zn 1 ml/Total Parenteral Nutrition/Amino Acids/Dextrose/ Fat Emulsion Intravenous 1,512 ml @ 63 mls/hr TPN CONT IV Last administered on 09/09/16 22:37; Start 09/09/16 at 22:00; Stop 09/10/16 at 21:59; Status DC Sodium Chloride/ Potassium Chloride/ Potassium Phosphate/ Magnesium Sulfate/ Calcium Gluconate/ Multivitamins/ Minerals/Chromium/ Copper/Manganese/ Seleni/Zn /Total Parenteral Nutrition/Amino Acids/Dextrose/ Fat Emulsion Intravenous ( Sodium Chloride/ Potassium Phospha... 1,512 ml @ 63 mls/hr TPN CONT IV Last administered on 09/10/16 21:57; Start 09/10/16 at 22:00; Stop 09/11/16 at 21:59 ; Status DC Iohexol (Omnipaque 240 Mg/ml) 30 ml 1X ONCE PO Last administered on 09/10/16 14:15; Start 09/10/16 at 14:15; Stop 09/10/16 at 14:21; Status DC Iohexol (Omnipaque 300 Mg/ml) 75 ml 1X ONCE IV Last administered on 09/10/16 15:41; Start 09/10/16 at 14:15; Stop 09/10/16 at 14:21; Status DC Info (Do NOT chart on this entry -- for MONITORING) 1 each PRN DAILY PRN MC SEE COMMENTS; Start 09/10/16 at 14:30; Stop 09/12/16 at 14:29 Lidocaine/Sodium Bicarbonate (Buffered Lidocaine 1%) 20 ml STK-MED ONCE IJ ; Start 09/11/16 at 13:02; Stop 09/11/16 at 13:03; Status DC Fentanyl Citrate (Fentanyl 2ml Vial) 100 mcg STK-MED ONCE .ROUTE ; Start at 13:20; Stop 09/11/16 at 13:21; Status DC Midazolam HCl 5 mg 5 mg STK-MED ONCE .ROUTE ; Start 09/11/16 at 13:20; Stop at 13:21; Status DC Sodium Chloride/ Potassium Chloride/ Potassium Phosphate/ Magnesium Sulfate/ Calcium Gluconate/ Multivitamins/ Minerals/Chromium/ Copper/Manganese/ Seleni/Zn /Total Parenteral Nutrition/Amino Acids/Dextrose/ Fat Emulsion Intravenous ( Sodium Chloride/ Potassium Phospha... 1,512 ml @ 63 mls/hr TPN CONT IV Last administered on 09/11/16 21:06; Start 09/11/16 at 22:00; Stop 09/12/16 at 21:59 Lidocaine/Sodium Bicarbonate (Buffered Lidocaine 1%) 20 ml 1X ONCE IJ Last administered on 09/11/16 14:00; Start 09/11/16 at 14:00; Stop 09/11/16 at 14:01 ; Status DC Midazolam HCl (Versed) 5 mg 1X ONCE IV Last administered on 09/11/16 14:00; Start 09/11/16 at 14:00; Stop 09/11/16 at 14:01; Status DC Fentanyl Citrate (Fentanyl 2ml Vial) 100 mcg 1X ONCE IV Last administered on 14:00; Start 09/11/16 at 14:00; Stop 09/11/16 at 14:01; Status DC Metoprolol Tartrate 5 mg 5 mg Q6HRS IVP Last administered on 09/12/16 10:33; Start 09/11/16 at 22:00 Dextrose/Sodium Chloride (Iv D5% - NS) 1,000 ml @ 125 mls/hr 1X ONCE IV Last administered on 09/12/16 10:29; Start 09/12/16 at 10:30; Stop 09/12/16 at 18:29 Vitals/I & O Vital Sign - Last 24 Hours 09/11/16 09/11/16 09/11/16 09/11/16 13:40 13:46 13:48 13:53 Pulse 111 114 114 114 Resp 12 28 26 21 Pulse Ox 98 98 98 98 O2 Delivery Nasal Cannula Nasal Cannula Nasal Cannula Nasal Cannula O2 Flow Rate 2.0 2.0 2.0 2.0 09/11/16 09/11/16 09/11/16 09/11/16 13:58 14:00 14:03 14:07 Pulse 113 113 114 Resp 25 29 27 32 Pulse Ox 98 100 98 100 O2 Delivery Nasal Cannula Nasal Cannula Nasal Cannula Nasal Cannula O2 Flow Rate 2.0 2.0 2.0 2.0 09/11/16 09/11/16 09/11/16 09/11/16 14:08 14:13 14:23 14:45 Temp 99.2 99.2 Pulse 113 113 115 112 Resp 30 30 14 17 B/P 121/84 Pulse Ox 98 98 98 96 O2 Delivery Nasal Cannula Nasal Cannula Room Air Room Air O2 Flow Rate 2.0 2.0 09/11/16 09/11/16 09/11/16 09/11/16 15:00 15:15 15:45 19:00 Temp 100.1 100.1 Pulse 114 109 116 149 Resp 20 B/P 116/114 117/80 116/80 115/80 Pulse Ox 94 O2 Delivery Room Air 09/11/16 09/11/16 09/11/16 09/11/16 20:30 22:05 23:00 23:17 Temp 98.7 98.7 Pulse 153 153 127 123 Resp 20 B/P 115/82 117/80 Pulse Ox 94 O2 Delivery Room Air 09/12/16 09/12/16 09/12/16 09/12/16 03:00 05:29 07:09 08:00 Temp 98.7 99.1 98.7 99.1 Pulse 140 140 132 Resp 20 18 B/P 125/87 120/87 Pulse Ox 94 95 O2 Delivery Room Air Room Air Room Air O2 Flow Rate 2.0 09/12/16 09/12/16 10:33 10:58 Temp 99.0 99.0 Pulse 132 138 Resp 18 B/P 120/87 124/90 Pulse Ox 95 O2 Delivery Room Air Intake and Output 09/11/16 09/11/16 09/12/16 15:00 23:00 07:00 Intake Total 200 ml Output Total 275 ml 280 ml 510 ml Balance -275 ml -280 ml -310 ml YUN AHN MD Sep 12, 2016 11:53
[2016-09-12] MEDS ORDERED: IV NORMAL SALINE 1000ML BAG 1,000 ML IV ONE (12:00)
[2016-09-12] MEDS: ENOXAPARIN 40 MG/0.4 ML DISP.SYRIN. SQ SCH (12:20)
--- NOTE | 2016-09-12 12:36 | PDOC ---
Subjective: Subjective: Feels about the same. No n/v, no flatus or stool. Less pain. Objective: Vital Signs: Vital Signs Date Time Temp Pulse Resp B/P Pulse Ox O2 Delivery O2 Flow Rate FiO2 09/12/16 10:58 99.0 138 18 124/90 95 Room Air 99.0 09/12/16 08:00 2.0 Labs: Laboratory Tests Test 09/12/16 03:10 09/12/16 04:15 09/12/16 05:00 White Blood Count 26.8x10^3/uL Red Blood Count 4.65x10^6/uL Hemoglobin 13.5g/dL Hematocrit 41.3% Mean Corpuscular Volume 89fL Mean Corpuscular Hemoglobin 29pg Mean Corpuscular Hemoglobin Concent 33g/dL Red Cell Distribution Width 12.7% Platelet Count 350x10^3/uL Neutrophils (%) (Auto) 91% Lymphocytes (%) (Auto) 6% Monocytes (%) (Auto) 3% Eosinophils (%) (Auto) 1% Basophils (%) (Auto) 0% Neutrophils # (Auto) 24.3x10^3uL Lymphocytes # (Auto) 1.6x10^3/uL Monocytes # (Auto) 0.7x10^3/uL Eosinophils # (Auto) 0.1x10^3/uL Basophils # (Auto) 0.1x10^3/uL Sodium Level 133mmol/L Potassium Level 5.2mmol/L Chloride Level 99mmol/L Carbon Dioxide Level 23mmol/L Anion Gap 11 Blood Urea Nitrogen 10mg/dL Creatinine 0.6mg/dL Estimated GFR (Cockcroft-Gault) 173.6 Glucose Level 118mg/dL Calcium Level 8.5mg/dL Phosphorus Level 4.8mg/dL Lactic Acid Level 0.7mmol/L Magnesium Level 2.2mg/dL PE: GEN: NAD LUNGS: CTAB anteriorly HEART: tachycardic ABD: drains LLQ purulent, tender surrounding, BS quiet NEURO/PSYCH: A & O 3 A/P: Abdominal pain w/ pneumoperitoneum, abscesses -new IR drains placed yesterday -NPO on TPN Elevated LFTs -?TPN Leukocytosis, fever, tachycardia -on IV antibiotics -- ID, cardiology, surgery following - possible surgery later this week. [facility]MM RIVAS 24, 2017 12:36
[2016-09-12] MEDS: TPN PER PHARMACY MC PRN (12:59)
--- NOTE | 2016-09-12 13:01 | CARD ---
APPROVED REPORT EXAM: Two-dimensional and M-mode echocardiogram with Doppler and color Doppler. Other Information Quality : Good Rhythm : Tachycardia INDICATION Abnormal ECG 2D DIMENSIONS RVDd2.8 (2.9-3.5cm)Left Atrium(2D)3.1 (1.6-4.0cm) IVSd0.9 (0.7-1.1cm)Aortic Root(2D)2.6 (2.0-3.7cm) LVDd4.3 (3.9-5.9cm)LVOT Diameter1.9 (1.8-2.4cm) PWd0.9 (0.7-1.1cm)LVDs3.2 (2.5-4.0cm) FS (%) 27.0 %SV41.4 ml LVEF(%)55.0 (>50%) Aortic Valve AoV Peak Taiwo.122.2cm/sAoV VTI15.0cm AO Peak GR.6.0mmHgLVOT Peak Taiwo.100.3cm/s AO Mean GR.4mmHgAVA (VMAX)2.40cm2 ALLAN (VTI)2.60cm2 Mitral Valve MV E Ebdmfmte91.0cm/sMV DECEL [id number] MV A Dfeufyks52.5cm/sE/A Ratio1.0 Tricuspid Valve TR P. Meefrqhq455uc/sRAP [id number] TR Peak Gr.[id number] Pulmonary Vein S1 Qktzllpg16.2cm/sD2 Uavawxip39.6cm/s LEFT VENTRICLE The left ventricle is normal size. There is normal left ventricular wall thickness. The left ventricu lar systolic function is normal and the ejection fraction is within normal range. EF 60% There is angela ssly normal LV segmental wall motion. The left ventricular diastolic function and filling is normal f or age. RIGHT VENTRICLE The right ventricle is normal size. The right ventricular systolic function is normal. ATRIA The left atrium size is normal. The right atrium size is normal. The interatrial septum is intact wit h no evidence for an atrial septal defect or patent foramen ovale as noted on 2-D or Doppler imaging. AORTIC VALVE The aortic valve is grossly normal in structure and function. Doppler and Color Flow revealed no sign ificant aortic regurgitation. There is no significant aortic valvular stenosis. MITRAL VALVE The mitral valve is normal in structure and function. There is no evidence of mitral valve prolapse. There is no mitral valve stenosis. Doppler and Color-flow revealed trace mitral regurgitation. TRICUSPID VALVE The tricuspid valve is normal in structure and function. Doppler and Color Flow revealed trace to mil d tricuspid regurgitation. There is no pulmonary hypertension. The PA pressure was estimated at 28 mm Hg. There is no tricuspid valve stenosis. PULMONIC VALVE Doppler and Color Flow revealed trace pulmonic valvular regurgitation. There is no pulmonic valvular stenosis. GREAT VESSELS The aortic root is normal in size. The ascending aorta is normal in size. The IVC was not visualized. PERICARDIAL EFFUSION There is no evidence of significant pericardial effusion. Critical Notification Critical Value: No <Conclusion> The left ventricular systolic function is normal and the ejection fraction is within normal range. EF 60% There is grossly normal LV segmental wall motion. No significant valvular disease.
[2016-09-12 15:01] VITALS: BP 122/90
[2016-09-12] MEDS: ONDANSETRON PF 4 MG/2 ML VIAL. IV PRN (16:07)
[2016-09-12] MEDS: ACETAMINOPHEN 650 MG SUPP.RECT. PR PRN (17:35)
[2016-09-12 19:00] VITALS: BP 121/83
[2016-09-12] MEDS ORDERED: DEXTROSE 70% IV SCH ×10 (22:00)
[2016-09-12] MEDS ORDERED: AMINO ACIDS IV SCH ×10 (22:00)
[2016-09-12] MEDS ORDERED: [UNRECOGNIZED DRUG - OTHER] IV SCH ×10 (22:00)
[2016-09-12] MEDS ORDERED: TOTAL PARENTERAL NUTRITION IV SCH ×10 (22:00)
[2016-09-12 23:15] VITALS: BP 125/91
[2016-09-13] VITALS (11 sets, daily range): BP systolic 106–144; BP diastolic 72–98
[2016-09-13 04:54] LABS: BASO % 0 % (0-3); EOS % 0 % (0-3); HEMATOCRIT 32.9 % (39.0-53.0); HEMOGLOBIN 11.1 g/dL (13.0-17.5); LYMPH # 1.6 x10^3/uL (1.0-4.8); LYMPH % 8 % (24-48); MEAN CORPUSCULAR HEMOGLOBIN 30 pg (25-35); MEAN CORPUSCULAR HGB CONC 34 g/dL (31-37); MEAN CORPUSCULAR VOLUME 88 fL (79-100); MONO % 6 % (0-9); NEUT % 86 % (31-73); PLATELET COUNT 302 x10^3/uL (140-400); RED BLOOD COUNT 3.75 x10^6/uL (4.30-5.70); RED CELL DISTRIBUTION WIDTH 12.5 % (11.5-14.5); WHITE BLOOD COUNT 20.8 x10^3/uL (4.0-11.0)
[2016-09-13 05:09] LABS: CREATININE 0.5 mg/dL (0.7-1.3); GFR 214.2; MAGNESIUM 1.8 mg/dL (1.8-2.4); PHOSPHORUS 3.2 mg/dL (2.6-4.7); POTASSIUM 4.3 mmol/L (3.5-5.1)
[2016-09-13] MEDS: MEROPENEM 1 GM in IV NORMAL SALINE 100ML 100 ML IV SCH ×3 (05:12→20:24)
[2016-09-13] MEDS: METOPROLOL TARTRATE 5 MG/5 ML VIAL. IVP SCH ×4 (06:04→20:25)
[2016-09-13] MEDS: ACETAMINOPHEN 650 MG SUPP.RECT. PR PRN (06:14)
[2016-09-13] MEDS: PANTOPRAZOLE IV PUSH 40 MG VIAL. IVP SCH (08:56)
--- NOTE | 2016-09-13 09:44 | PDOC ---
SURGICAL PROGRESS NOTE Subjective still has pain, no flatus, belching Vital Signs Vital Signs Date Time Temp Pulse Resp B/P Pulse Ox O2 Delivery O2 Flow Rate FiO2 09/13/16 07:00 98.9 106 16 109/76 93 Room Air 98.9 09/12/16 08:00 2.0 I&O Intake and Output 09/13/16 07:00 Intake Total 940 ml Output Total 850 ml Balance 90 ml Other 940 ml Output Urine Total 750 ml Drainage Total 100 ml PATIENT HAS A BAKER: No General: Cooperative Abdomen: Other (mildly distended, TTP) Labs Laboratory Tests Test 09/12/16 03:10 09/12/16 04:15 09/12/16 05:00 09/13/16 04:40 White Blood Count 26.8x10^3/uL (4.0-11.0) 20.8x10^3/uL (4.0-11.0) Red Blood Count 4.65x10^6/uL (4.30-5.70) 3.75x10^6/uL (4.30-5.70) Hemoglobin 13.5g/dL (13.0-17.5) 11.1g/dL (13.0-17.5) Hematocrit 41.3% (39.0-53.0) 32.9% (39.0-53.0) Mean Corpuscular Volume 89fL (79-100) 88fL (79-100) Mean Corpuscular Hemoglobin 29pg (25-35) 30pg (25-35) Mean Corpuscular Hemoglobin Concent 33g/dL (31-37) 34g/dL (31-37) Red Cell Distribution Width 12.7% (11.5-14.5) 12.5% (11.5-14.5) Platelet Count 350x10^3/uL (140-400) 302x10^3/uL (140-400) Neutrophils (%) (Auto) 91% (31-73) 86% (31-73) Lymphocytes (%) (Auto) 6% (24-48) 8% (24-48) Monocytes (%) (Auto) 3% (0-9) 6% (0-9) Eosinophils (%) (Auto) 1% (0-3) 0% (0-3) Basophils (%) (Auto) 0% (0-3) 0% (0-3) Neutrophils # (Auto) 24.3x10^3uL (1.8-7.7) 17.9x10^3uL (1.8-7.7) Lymphocytes # (Auto) 1.6x10^3/uL (1.0-4.8) 1.6x10^3/uL (1.0-4.8) Monocytes # (Auto) 0.7x10^3/uL (0.0-1.1) 1.1x10^3/uL (0.0-1.1) Eosinophils # (Auto) 0.1x10^3/uL (0.0-0.7) 0.1x10^3/uL (0.0-0.7) Basophils # (Auto) 0.1x10^3/uL (0.0-0.2) 0.0x10^3/uL (0.0-0.2) Sodium Level 133mmol/L (136-145) 131mmol/L (136-145) Potassium Level 5.2mmol/L (3.5-5.1) 4.3mmol/L (3.5-5.1) Chloride Level 99mmol/L (98-107) 96mmol/L (98-107) Carbon Dioxide Level 23mmol/L (21-32) 27mmol/L (21-32) Anion Gap 11 (6-14) 8 (6-14) Blood Urea Nitrogen 10mg/dL (8-26) 9mg/dL (8-26) Creatinine 0.6mg/dL (0.7-1.3) 0.5mg/dL (0.7-1.3) Estimated GFR (Cockcroft-Gault) 173.6 214.2 Glucose Level 118mg/dL (70-99) 129mg/dL (70-99) Calcium Level 8.5mg/dL (8.5-10.1) 8.0mg/dL (8.5-10.1) Phosphorus Level 4.8mg/dL (2.6-4.7) 3.2mg/dL (2.6-4.7) Lactic Acid Level 0.7mmol/L (0.4-2.0) Magnesium Level 2.2mg/dL (1.8-2.4) 1.8mg/dL (1.8-2.4) Laboratory Tests Test 09/13/16 04:40 White Blood Count 20.8x10^3/uL (4.0-11.0) Red Blood Count 3.75x10^6/uL (4.30-5.70) Hemoglobin 11.1g/dL (13.0-17.5) Hematocrit 32.9% (39.0-53.0) Mean Corpuscular Volume 88fL (79-100) Mean Corpuscular Hemoglobin 30pg (25-35) Mean Corpuscular Hemoglobin Concent 34g/dL (31-37) Red Cell Distribution Width 12.5% (11.5-14.5) Platelet Count 302x10^3/uL (140-400) Neutrophils (%) (Auto) 86% (31-73) Lymphocytes (%) (Auto) 8% (24-48) Monocytes (%) (Auto) 6% (0-9) Eosinophils (%) (Auto) 0% (0-3) Basophils (%) (Auto) 0% (0-3) Neutrophils # (Auto) 17.9x10^3uL (1.8-7.7) Lymphocytes # (Auto) 1.6x10^3/uL (1.0-4.8) Monocytes # (Auto) 1.1x10^3/uL (0.0-1.1) Eosinophils # (Auto) 0.1x10^3/uL (0.0-0.7) Basophils # (Auto) 0.0x10^3/uL (0.0-0.2) Sodium Level 131mmol/L (136-145) Potassium Level 4.3mmol/L (3.5-5.1) Chloride Level 96mmol/L (98-107) Carbon Dioxide Level 27mmol/L (21-32) Anion Gap 8 (6-14) Blood Urea Nitrogen 9mg/dL (8-26) Creatinine 0.5mg/dL (0.7-1.3) Estimated GFR (Cockcroft-Gault) 214.2 Glucose Level 129mg/dL (70-99) Calcium Level 8.0mg/dL (8.5-10.1) Phosphorus Level 3.2mg/dL (2.6-4.7) Magnesium Level 1.8mg/dL (1.8-2.4) I have reviewed the following plain films from yesterday reviewed Problem List Problems Medical Problems: (1) Abdominal pain Status: Acute (2) Pneumoperitoneum Status: Acute Assessment/Plan perforated viscous Sebas's WBC is down a little, but still having fevers, no flatus. I recommended going to the OR. He agrees. Explained surgical risks including but not limited to bleeding, infection, need for a stoma. Problems: RODRIGUE LÓPEZ MD Sep 13, 2016 09:44
--- NOTE | 2016-09-13 10:19 | PDOC ---
Infectious Disease Note Subjective Subjective Doing ok. Belching but no Flatus. 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 ROS GEN: Denies fevers, chills, sweats HEENT: Denies blurred vision, sore throat CV: Denies chest pain RESP: Denies shortness of air, cough GI: Denies n/v/d NEURO: Denies confusion, dizziness MSK: Denies weakness, joint pain/swelling Vital Sign Vital Signs Vital Signs Date Time Temp Pulse Resp B/P Pulse Ox O2 Delivery O2 Flow Rate FiO2 09/13/16 07:00 98.9 106 16 109/76 93 Room Air 98.9 09/12/16 08:00 2.0 Physical Exam PHYSICAL EXAM GENERAL: NAD, Alert HEENT: PERRL, OC/OP - clear NECK: Supple, no JVD, no LN LUNGS: Clear HEART: S1S2, no gallop, no murmur ABD: Soft, obese, NT, no organomegaly, no rebound. 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, oriented x 3, no focal neurologic deficit SKIN: No rash IV: PICC -clean Labs Lab Laboratory Tests Test 09/13/16 04:40 White Blood Count 20.8x10^3/uL (4.0-11.0) Red Blood Count 3.75x10^6/uL (4.30-5.70) Hemoglobin 11.1g/dL (13.0-17.5) Hematocrit 32.9% (39.0-53.0) Mean Corpuscular Volume 88fL (79-100) Mean Corpuscular Hemoglobin 30pg (25-35) Mean Corpuscular Hemoglobin Concent 34g/dL (31-37) Red Cell Distribution Width 12.5% (11.5-14.5) Platelet Count 302x10^3/uL (140-400) Neutrophils (%) (Auto) 86% (31-73) Lymphocytes (%) (Auto) 8% (24-48) Monocytes (%) (Auto) 6% (0-9) Eosinophils (%) (Auto) 0% (0-3) Basophils (%) (Auto) 0% (0-3) Neutrophils # (Auto) 17.9x10^3uL (1.8-7.7) Lymphocytes # (Auto) 1.6x10^3/uL (1.0-4.8) Monocytes # (Auto) 1.1x10^3/uL (0.0-1.1) Eosinophils # (Auto) 0.1x10^3/uL (0.0-0.7) Basophils # (Auto) 0.0x10^3/uL (0.0-0.2) Sodium Level 131mmol/L (136-145) Potassium Level 4.3mmol/L (3.5-5.1) Chloride Level 96mmol/L (98-107) Carbon Dioxide Level 27mmol/L (21-32) Anion Gap 8 (6-14) Blood Urea Nitrogen 9mg/dL (8-26) Creatinine 0.5mg/dL (0.7-1.3) Estimated GFR (Cockcroft-Gault) 214.2 Glucose Level 129mg/dL (70-99) Calcium Level 8.0mg/dL (8.5-10.1) Phosphorus Level 3.2mg/dL (2.6-4.7) Magnesium Level 1.8mg/dL (1.8-2.4) Micro scherichia coli Moderate growth AEROBIC RES 2 Final Escherichia coli Moderate growth AEROBIC RES 3 Final Comment Streptococcus anginosus group Heavy growth ANTIMICROBIAL SUSCEPTIBILITY Final Comment S = Susceptible; I = Intermediate; R = Resistant P = Positive; N = Negative MICS are expressed in micrograms per mL Antibiotic RSLT#1 RSLT#2 RSLT#3 RSLT#4 Amoxicillin/Clavulanic Acid S S Ampicillin R R Cefepime S S Ceftriaxone S S CONTINUED ON NEXT PAGE RUN DATE: 09/07/16 PAGE 2 RUN TIME: 1323 [facility] [address] [place] [address] Conor Young M.D., Salvage Inspector SPEC: [id number] PATIENT: YINA KEENE [id number] ( Continued) Procedure Result ANTIMICROBIAL SUSCEPTIBILITY Final (continued) Cefuroxime S S Ciprofloxacin R R Ertapenem S S Gentamicin S S Imipenem S S Levofloxacin R R Piperacillin R R Tetracycline S R Tobramycin S S Trimethoprim/Sulfa R R Performed at: [address] [id number] Generator Man: Bushra Bañuelos MD, Phone: [phone] CT 09/10 IMPRESSION: 1. Successful percutaneous drainage of 2 pelvic fluid collections as described above. 2. Moderate-sized encapsulated fluid collections in the left paracolic gutter and upper pelvis near the midline, and a smaller fluid collection along the lower pole of the left kidney suggest additional abscesses. 3. Tiny amount of fluid in the deep pelvis which may represent free fluid. 4. Mural thickening involving small bowel loops adjacent to the midline pelvic fluid collection probably due to inflammation, with evidence of associated partial small bowel obstruction. Objective Assessment Diverticulitis Perf viscous -on Zosyn initially but changed to Meropenem 09/04 recurrent Abd abscess on CT 09/10- s/ p [address] 09/04 and then 09/11- Ecoli/ second Ecoli/Strep anginosis from 09/04 cults 09/11 pending Leukocytosis - better. clinically stable Plan Plan of Care Cont Abx F/u labs and cults To OR. Reviewed notes and d/w Dr. Scott 09/12 D/w MIRIAM Dubose MD Sep 13, 2016 10:19
--- NOTE | 2016-09-13 10:21 | PDOC ---
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0-53.0) Mean Corpuscular Volume 88fL (79-100) Mean Corpuscular Hemoglobin 30pg (25-35) Mean Corpuscular Hemoglobin Concent 34g/dL (31-37) Red Cell Distribution Width 12.5% (11.5-14.5) Platelet Count 302x10^3/uL (140-400) Neutrophils (%) (Auto) 86% (31-73) Lymphocytes (%) (Auto) 8% (24-48) Monocytes (%) (Auto) 6% (0-9) Eosinophils (%) (Auto) 0% (0-3) Basophils (%) (Auto) 0% (0-3) Neutrophils # (Auto) 17.9x10^3uL (1.8-7.7) Lymphocytes # (Auto) 1.6x10^3/uL (1.0-4.8) Monocytes # (Auto) 1.1x10^3/uL (0.0-1.1) Eosinophils # (Auto) 0.1x10^3/uL (0.0-0.7) Basophils # (Auto) 0.0x10^3/uL (0.0-0.2) Sodium Level 131mmol/L (136-145) Potassium Level 4.3mmol/L (3.5-5.1) Chloride Level 96mmol/L (98-107) Carbon Dioxide Level 27mmol/L (21-32) Anion Gap 8 (6-14) Blood Urea Nitrogen 9mg/dL (8-26) Creatinine 0.5mg/dL (0.7-1.3) Estimated GFR (Cockcroft-Gault) 214.2 Glucose Level 129mg/dL (70-99) Calcium Level 8.0mg/dL (8.5-10.1) Phosphorus Level 3.2mg/dL (2.6-4.7) Magnesium Level 1.8mg/dL (1.8-2.4) Assessment and Plan Assessmemt and Plan Problems Medical Problems: (1) Abdominal pain Status: Acute (2) Pneumoperitoneum Status: Acute Problems: Comment Review of Relevant I have reviewed the following items crystal (where applicable) has been applied. Labs Laboratory Tests Test 09/12/16 03:10 09/12/16 04:15 09/12/16 05:00 09/13/16 04:40 White Blood Count 26.8x10^3/uL (4.0-11.0) 20.8x10^3/uL (4.0-11.0) Red Blood Count 4.65x10^6/uL (4.30-5.70) 3.75x10^6/uL (4.30-5.70) Hemoglobin 13.5g/dL (13.0-17.5) 11.1g/dL (13.0-17.5) Hematocrit 41.3% (39.0-53.0) 32.9% (39.0-53.0) Mean Corpuscular Volume 89fL (79-100) 88fL (79-100) Mean Corpuscular Hemoglobin 29pg (25-35) 30pg (25-35) Mean Corpuscular Hemoglobin Concent 33g/dL (31-37) 34g/dL (31-37) Red Cell Distribution Width 12.7% (11.5-14.5) 12.5% (11.5-14.5) Platelet Count 350x10^3/uL (140-400) 302x10^3/uL (140-400) Neutrophils (%) (Auto) 91% (31-73) 86% (31-73) Lymphocytes (%) (Auto) 6% (24-48) 8% (24-48) Monocytes (%) (Auto) 3% (0-9) 6% (0-9) Eosinophils (%) (Auto) 1% (0-3) 0% (0-3) Basophils (%) (Auto) 0% (0-3) 0% (0-3) Neutrophils # (Auto) 24.3x10^3uL (1.8-7.7) 17.9x10^3uL (1.8-7.7) Lymphocytes # (Auto) 1.6x10^3/uL (1.0-4.8) 1.6x10^3/uL (1.0-4.8) Monocytes # (Auto) 0.7x10^3/uL (0.0-1.1) 1.1x10^3/uL (0.0-1.1) Eosinophils # (Auto) 0.1x10^3/uL (0.0-0.7) 0.1x10^3/uL (0.0-0.7) Basophils # (Auto) 0.1x10^3/uL (0.0-0.2) 0.0x10^3/uL (0.0-0.2) Sodium Level 133mmol/L (136-145) 131mmol/L (136-145) Potassium Level 5.2mmol/L (3.5-5.1) 4.3mmol/L (3.5-5.1) Chloride Level 99mmol/L (98-107) 96mmol/L (98-107) Carbon Dioxide Level 23mmol/L (21-32) 27mmol/L (21-32) Anion Gap 11 (6-14) 8 (6-14) Blood Urea Nitrogen 10mg/dL (8-26) 9mg/dL (8-26) Creatinine 0.6mg/dL (0.7-1.3) 0.5mg/dL (0.7-1.3) Estimated GFR (Cockcroft-Gault) 173.6 214.2 Glucose Level 118mg/dL (70-99) 129mg/dL (70-99) Calcium Level 8.5mg/dL (8.5-10.1) 8.0mg/dL (8.5-10.1) Phosphorus Level 4.8mg/dL (2.6-4.7) 3.2mg/dL (2.6-4.7) Lactic Acid Level 0.7mmol/L (0.4-2.0) Magnesium Level 2.2mg/dL (1.8-2.4) 1.8mg/dL (1.8-2.4) Laboratory Tests Test 09/13/16 04:40 White Blood Count 20.8x10^3/uL (4.0-11.0) Red Blood Count 3.75x10^6/uL (4.30-5.70) Hemoglobin 11.1g/dL (13.0-17.5) Hematocrit 32.9% (39.0-53.0) Mean Corpuscular Volume 88fL (79-100) Mean Corpuscular Hemoglobin 30pg (25-35) Mean Corpuscular Hemoglobin Concent 34g/dL (31-37) Red Cell Distribution Width 12.5% (11.5-14.5) Platelet Count 302x10^3/uL (140-400) Neutrophils (%) (Auto) 86% (31-73) Lymphocytes (%) (Auto) 8% (24-48) Monocytes (%) (Auto) 6% (0-9) Eosinophils (%) (Auto) 0% (0-3) Basophils (%) (Auto) 0% (0-3) Neutrophils # (Auto) 17.9x10^3uL (1.8-7.7) Lymphocytes # (Auto) 1.6x10^3/uL (1.0-4.8) Monocytes # (Auto) 1.1x10^3/uL (0.0-1.1) Eosinophils # (Auto) 0.1x10^3/uL (0.0-0.7) Basophils # (Auto) 0.0x10^3/uL (0.0-0.2) Sodium Level 131mmol/L (136-145) Potassium Level 4.3mmol/L (3.5-5.1) Chloride Level 96mmol/L (98-107) Carbon Dioxide Level 27mmol/L (21-32) Anion Gap 8 (6-14) Blood Urea Nitrogen 9mg/dL (8-26) Creatinine 0.5mg/dL (0.7-1.3) Estimated GFR (Cockcroft-Gault) 214.2 Glucose Level 129mg/dL (70-99) Calcium Level 8.0mg/dL (8.5-10.1) Phosphorus Level 3.2mg/dL (2.6-4.7) Magnesium Level 1.8mg/dL (1.8-2.4) Microbiology 08/30/16 Blood Culture - Final, Complete NO GROWTH AFTER 5 DAYS 09/11/16 Gram Stain - Final, Complete 08/30/16 Urine Culture - Final, Complete 08/30/16 Urine Culture Result 1 (TOAN) - Final, Complete 09/04/16 Gram Stain - Final, Complete Medications Current Medications Sodium Chloride (Iv Sodium Chloride 0.9% 1000ml Bag) 1,000 ml @ 1,000 mls/hr Q1H IV Last administered on 08/30/16 19:58; Start 08/30/16 at 19:45; Stop 07/06 at 20:44; Status DC Morphine Sulfate 4 mg 1X ONCE IV Last administered on 08/30/16 19:58; Start 08/30/16 at 19:45; Stop 08/30/16 at 19:46; Status DC Ondansetron HCl (Zofran) 4 mg 1X ONCE IV Last administered on 08/30/16 19:57 ; Start 08/30/16 at 19:45; Stop 08/30/16 at 19:46; Status DC Iohexol (Omnipaque 300 Mg/ml) 75 ml 1X ONCE IV Last administered on 08/30/16 20:57; Start 08/30/16 at 20:00; Stop 08/30/16 at 20:01; Status DC Morphine Sulfate 4 mg 1X ONCE IV Last administered on 08/30/16 22:22; Start 08/30/16 at 21:45; Stop 08/30/16 at 21:46; Status DC Piperacillin Sod/ Tazobactam Sod 1 each 1 each PRN DAILY PRN MC SEE COMMENTS; Start 08/30/16 at 21:45; Stop 09/02/16 at 13:43; Status DC Piperacillin Sod/ Tazobactam Sod/ Sodium Chloride (Zosyn/Iv Sodium Chloride 0.9 % 50ml) 50 ml @ 100 mls/hr Q6HRS IV Last administered on 09/04/16 05:07; Start 08/30/16 at 22:00; Stop 09/04/16 at 10:30; Status DC Ondansetron HCl (Zofran) 4 mg PRN Q8HRS PRN IV NAUSEA/VOMITING; Start 08/30/16 at 22:30; Stop 08/31/16 at 22:29; Status DC Morphine Sulfate 4 mg 4 mg PRN Q2HR PRN IV PAIN Last administered on 08/30/16 23:16; Start 08/30/16 at 22:30; Stop 08/31/16 at 22:29; Status DC Sodium Chloride (Iv Sodium Chloride 0.9% 1000ml Bag) 1,000 ml @ 125 mls/hr Q8H IV Last administered on 08/31/16 09:13; Start 08/30/16 at 22:30; Stop at 13:05; Status DC Acetaminophen 650 mg 650 mg PRN Q4HRS PRN PO FEVER Last administered on 23:15; Start 08/30/16 at 22:30; Stop 08/31/16 at 22:29; Status DC Hydromorphone HCl 30 ml @ 0 mls/hr CONT PRN PRN IV PROTOCOL Last administered on 09/08/16 04:45; Start 08/30/16 at 23:30 Potassium Chloride/Dextrose/ Sod Cl 1,000 ml @ 100 mls/hr Q10H IV Last administered on 09/01/16 03:52; Start 08/31/16 at 13:15; Stop 09/01/16 at 14:37 ; Status DC Sodium Chloride 1,000 ml @ 1,000 mls/hr 1X ONCE IV Last administered on 14:24; Start 08/31/16 at 13:15; Stop 08/31/16 at 14:14; Status DC Albumin Human (Plasmanate) 500 ml @ 125 mls/hr 1X ONCE IV Last administered on 08/31/16 17:21; Start 08/31/16 at 17:00; Stop 08/31/16 at 20:59; Status DC Ondansetron HCl 4 mg 4 mg PRN Q6HRS PRN IV NAUSEA/VOMITING Last administered on 09/12/16 16:07; Start 08/31/16 at 22:45 Amino Acids/ Glycerin/ Electrolytes (Procalamine) 1,000 ml @ 100 mls/hr Q10H IV Last administered on 09/05/16 10:00; Start 09/01/16 at 14:45; Stop at 21:59; Status DC Acetaminophen (Tylenol) 650 mg PRN Q4HRS PRN NC MILD PAIN / TEMP Last administered on 09/13/16 06:14; Start 09/01/16 at 20:30 Lorazepam (Ativan) 1 mg PRN Q4HRS PRN IV ANXIETY / AGITATION Last administered on 09/03/16 17:57; Start 09/02/16 at 10:30 Saliva Substitute (Biotene Moisturizing Mouth) 2 spray PRN Q15MIN PRN PO DRY MOUTH Last administered on 09/02/16 18:13; Start 09/02/16 at 10:30 Iohexol (Omnipaque 240 Mg/ml) 30 ml 1X ONCE PO Last administered on 09/03/16 10:18; Start 09/03/16 at 09:00; Stop 09/03/16 at 09:01; Status DC Iohexol (Omnipaque 300 Mg/ml) 75 ml 1X ONCE IV Last administered on 09/03/16 10:18; Start 09/03/16 at 09:00; Stop 09/03/16 at 09:01; Status DC Info (Do NOT chart on this entry -- for MONITORING) 1 each PRN DAILY PRN MC SEE COMMENTS; Start 09/03/16 at 08:45; Stop 09/05/16 at 08:44; Status DC Info 1 each PRN DAILY PRN MC SEE COMMENTS Last administered on 09/12/16 12:59 ; Start 09/04/16 at 15:00 Midazolam HCl (Versed) 5 mg STK-MED ONCE .ROUTE ; Start 09/04/16 at 09:54; Stop 09/04/16 at 09:55; Status DC Fentanyl Citrate (Fentanyl 5ml Vial) 250 mcg STK-MED ONCE .ROUTE ; Start at 09:54; Stop 09/04/16 at 09:55; Status DC Lidocaine/Sodium Bicarbonate 20 ml 20 ml STK-MED ONCE IJ ; Start 09/04/16 at 09: 55; Stop 09/04/16 at 09:56; Status DC Meropenem 1 gm/ Sodium Chloride 100 ml @ 200 mls/hr Q8HRS IV Last administered on 09/13/16 05:12; Start 09/04/16 at 14:00 Fluconazole/ Sodium Chloride (Diflucan 400mg/ 200ml Premix) 200 ml @ 100 mls/ hr Q24H IV Last administered on 09/12/16 10:30; Start 09/04/16 at 11:00 Lidocaine/Sodium Bicarbonate (Buffered Lidocaine 1%) 3 ml 1X ONCE IJ Last administered on 09/04/16 10:49; Start 09/04/16 at 10:45; Stop 09/04/16 at 10:48 ; Status DC Midazolam HCl (Versed) 0.5 mg 1X ONCE IV Last administered on 09/04/16 10:50 ; Start 09/04/16 at 10:45; Stop 09/04/16 at 10:48; Status DC Fentanyl Citrate 100 mcg 100 mcg 1X ONCE IV Last administered on 09/04/16 10: 50; Start 09/04/16 at 10:45; Stop 09/04/16 at 10:48; Status DC Sodium Chloride 90 meq/Potassium Chloride 50 meq/ Potassium Phosphate 13.6 mmol/ Magnesium Sulfate 10 meq/ Calcium Gluconate 10 meq/ Multivitamins/ Minerals 10 ml/ Chromium/Copper/ Manganese/Seleni/ Zn 1 ml/Total Parenteral Nutrition/Amino Acids/Dextrose/ Fat Emulsion Intravenous 1,512 ml @ 63 mls/hr TPN CONT IV Last administered on 09/05/16 20:50; Start 09/05/16 at 22:00; Stop 09/06/16 at 21:59; Status DC Levofloxacin/ Dextrose 150 ml @ 100 mls/hr 1X ONCE IV Last administered on 09:00; Start 09/06/16 at 09:00; Stop 09/06/16 at 10:29; Status DC Sodium Chloride/ Potassium Chloride/ Potassium Phosphate/ Magnesium Sulfate/ Calcium Gluconate/ Multivitamins/ Minerals/Chromium/ Copper/Manganese/ Seleni/Zn /Total Parenteral Nutrition/Amino Acids/Dextrose/ Fat Emulsion Intravenous ( Sodium Chloride/ Potassium Phospha... 1,512 ml @ 63 mls/hr TPN CONT IV Last administered on 09/06/16 21:49; Start 09/06/16 at 22:00; Stop 09/07/16 at 21:59 ; Status DC Alteplase, Recombinant (Cathflo) 2 mg 1X ONCE INT CAT Last administered on 20:43; Start 09/07/16 at 10:00; Stop 09/07/16 at 10:01; Status DC Vancomycin HCl (Vanco Per Pharmacy) 1 each PRN DAILY PRN MC SEE COMMENTS Last administered on 09/08/16 16:02; Start 09/07/16 at 10:30; Stop 09/11/16 at 10:23 ; Status DC Gentamicin Sulfate 1 each 1 each PRN DAILY PRN MC SEE COMMENTS; Start 09/07/16 at 10:15; Stop 09/07/16 at 13:00; Status DC Vancomycin HCl 2 gm/Sodium Chloride 500 ml @ 250 mls/hr 1X ONCE IV Last administered on 09/07/16 14:58; Start 09/07/16 at 11:00; Stop 09/07/16 at 12:59 ; Status DC Gentamicin Sulfate 500 mg/ Sodium Chloride 112.5 ml @ 112.5 mls/ hr 1X ONCE IV Last administered on 09/07/16 12:52; Start 09/07/16 at 11:00; Stop at 11:59; Status DC Sodium Chloride 90 meq/Potassium Chloride 50 meq/ Potassium Phosphate 13.6 mmol/ Magnesium Sulfate 10 meq/ Calcium Gluconate 10 meq/ Multivitamins/ Minerals 10 ml/ Chromium/Copper/ Manganese/Seleni/ Zn 1 ml/Total Parenteral Nutrition/Amino Acids/Dextrose/ Fat Emulsion Intravenous 1,512 ml @ 63 mls/hr TPN CONT IV Last administered on 09/07/16 21:41; Start 09/07/16 at 22:00; Stop 09/08/16 at 21:59; Status DC Vancomycin HCl/ Sodium Chloride (Iv Sodium Chloride 0.9% 250ml) 250 ml @ 167 mls/hr Q8H IV Last administered on 09/08/16 05:39; Start 09/07/16 at 23:00; Stop 09/08/16 at 15:54; Status DC Vancomycin HCl 1 each 1 each 1X ONCE MC Last administered on 09/08/16 14:30; Start 09/08/16 at 14:30; Stop 09/08/16 at 14:31; Status DC Sodium Chloride/ Potassium Chloride/ Potassium Phosphate/ Magnesium Sulfate/ Calcium Gluconate/ Multivitamins/ Minerals/Chromium/ Copper/Manganese/ Seleni/Zn /Total Parenteral Nutrition/Amino Acids/Dextrose/ Fat Emulsion Intravenous ( Sodium Chloride/ Potassium Phospha... 1,512 ml @ 63 mls/hr TPN CONT IV Last administered on 09/08/16 22:23; Start 09/08/16 at 22:00; Stop 09/09/16 at 21:59 ; Status DC Pantoprazole Sodium 40 mg 40 mg DAILYAC IVP Last administered on 09/13/16 08: 56; Start 09/08/16 at 15:00 Vancomycin HCl 1.25 gm/Sodium Chloride 250 ml @ 167 mls/hr Q6HRS IV Last administered on 09/11/16 06:14; Start 09/08/16 at 17:00; Stop 09/11/16 at 10:23 ; Status DC Sodium Chloride 120 meq/Potassium Chloride 50 meq/ Potassium Phosphate 13.6 mmol /Magnesium Sulfate 10 meq/ Calcium Gluconate 10 meq/ Multivitamins/ Minerals 10 ml/ Chromium/Copper/ Manganese/Seleni/ Zn 1 ml/Total Parenteral Nutrition/Amino Acids/Dextrose/ Fat Emulsion Intravenous 1,512 ml @ 63 mls/hr TPN CONT IV Last administered on 09/09/16 22:37; Start 09/09/16 at 22:00; Stop 09/10/16 at 21:59; Status DC Sodium Chloride/ Potassium Chloride/ Potassium Phosphate/ Magnesium Sulfate/ Calcium Gluconate/ Multivitamins/ Minerals/Chromium/ Copper/Manganese/ Seleni/Zn /Total Parenteral Nutrition/Amino Acids/Dextrose/ Fat Emulsion Intravenous ( Sodium Chloride/ Potassium Phospha... 1,512 ml @ 63 mls/hr TPN CONT IV Last administered on 09/10/16 21:57; Start 09/10/16 at 22:00; Stop 09/11/16 at 21:59 ; Status DC Iohexol (Omnipaque 240 Mg/ml) 30 ml 1X ONCE PO Last administered on 09/10/16 14:15; Start 09/10/16 at 14:15; Stop 09/10/16 at 14:21; Status DC Iohexol (Omnipaque 300 Mg/ml) 75 ml 1X ONCE IV Last administered on 09/10/16 15:41; Start 09/10/16 at 14:15; Stop 09/10/16 at 14:21; Status DC Info (Do NOT chart on this entry -- for MONITORING) 1 each PRN DAILY PRN MC SEE COMMENTS; Start 09/10/16 at 14:30; Stop 09/12/16 at 14:29; Status DC Lidocaine/Sodium Bicarbonate (Buffered Lidocaine 1%) 20 ml STK-MED ONCE IJ ; Start 09/11/16 at 13:02; Stop 09/11/16 at 13:03; Status DC Fentanyl Citrate (Fentanyl 2ml Vial) 100 mcg STK-MED ONCE .ROUTE ; Start at 13:20; Stop 09/11/16 at 13:21; Status DC Midazolam HCl 5 mg 5 mg STK-MED ONCE .ROUTE ; Start 09/11/16 at 13:20; Stop at 13:21; Status DC Sodium Chloride/ Potassium Chloride/ Potassium Phosphate/ Magnesium Sulfate/ Calcium Gluconate/ Multivitamins/ Minerals/Chromium/ Copper/Manganese/ Seleni/Zn /Total Parenteral Nutrition/Amino Acids/Dextrose/ Fat Emulsion Intravenous ( Sodium Chloride/ Potassium Phospha... 1,512 ml @ 63 mls/hr TPN CONT IV Last administered on 09/11/16 21:06; Start 09/11/16 at 22:00; Stop 09/12/16 at 21:59 ; Status DC Lidocaine/Sodium Bicarbonate (Buffered Lidocaine 1%) 20 ml 1X ONCE IJ Last administered on 09/11/16 14:00; Start 09/11/16 at 14:00; Stop 09/11/16 at 14:01 ; Status DC Midazolam HCl (Versed) 5 mg 1X ONCE IV Last administered on 09/11/16 14:00; Start 09/11/16 at 14:00; Stop 09/11/16 at 14:01; Status DC Fentanyl Citrate (Fentanyl 2ml Vial) 100 mcg 1X ONCE IV Last administered on 14:00; Start 09/11/16 at 14:00; Stop 09/11/16 at 14:01; Status DC Metoprolol Tartrate 5 mg 5 mg Q6HRS IVP Last administered on 09/13/16 06:04; Start 09/11/16 at 22:00 Dextrose/Sodium Chloride (Iv D5% - NS) 1,000 ml @ 125 mls/hr 1X ONCE IV Last administered on 09/12/16 10:29; Start 09/12/16 at 10:30; Stop 09/12/16 at 18:29 ; Status DC Enoxaparin Sodium 40 mg 40 mg Q24H SQ Last administered on 09/12/16 12:20; Start 09/12/16 at 13:00 Sodium Chloride 1,000 ml @ 75 mls/hr 1X ONCE IV Last administered on 21:27; Start 09/12/16 at 12:00; Stop 09/13/16 at 01:19; Status DC Sodium Chloride/ Potassium Chloride/ Potassium Phosphate/ Magnesium Sulfate/ Calcium Gluconate/ Multivitamins/ Minerals/Chromium/ Copper/Manganese/ Seleni/Zn /Total Parenteral Nutrition/Amino Acids/Dextrose/ Fat Emulsion Intravenous ( Sodium Chloride/ Potassium Phospha... 1,512 ml @ 63 mls/hr TPN CONT IV Last administered on 09/12/16 19:52; Start 09/12/16 at 22:00; Stop 09/13/16 at 21:59 Vitals/I & O Vital Sign - Last 24 Hours 09/12/16 09/12/16 09/12/16 09/12/16 10:33 10:58 15:01 16:09 Temp 99.0 100.1 99.0 100.1 Pulse 132 138 131 131 Resp 18 18 B/P 120/87 124/90 122/90 122/90 Pulse Ox 95 93 O2 Delivery Room Air Room Air 09/12/16 09/12/16 09/12/16 09/12/16 17:45 19:00 20:00 23:15 Temp 101.9 98.5 100.2 101.9 98.5 100.2 Pulse 117 116 Resp 20 20 B/P 121/83 125/91 Pulse Ox 97 98 O2 Delivery Room Air Room Air Room Air 09/13/16 09/13/16 09/13/16 09/13/16 00:00 03:00 06:04 07:00 Temp 99.3 98.9 99.3 98.9 Pulse 116 109 98 106 Resp 16 B/P 125/91 109/81 112/73 109/76 Pulse Ox 97 93 O2 Delivery Room Air Room Air Intake and Output 09/12/16 09/12/16 09/13/16 15:00 23:00 07:00 Intake Total 940 ml Output Total 150 ml 210 ml 490 ml Balance -150 ml -210 ml 450 ml YUN AHN MD Sep 13, 2016 10:21
[2016-09-13] MEDS: FLUCONAZOLE 400MG/200ML PREMIX 200 ML IV SCH (11:33)
[2016-09-13] MEDS: TPN PER PHARMACY MC PRN ×2 (12:04→14:09)
--- NOTE | 2016-09-13 12:36 | PDOC ---
Subjective: Subjective: Some abd pain, no flatus. Objective: Objective: Plans for surgery this afternoon. Vital Signs: Vital Signs Date Time Temp Pulse Resp B/P Pulse Ox O2 Delivery O2 Flow Rate FiO2 09/13/16 11:40 100 106/72 09/13/16 10:59 98.9 19 95 Room Air 98.9 09/12/16 08:00 2.0 Labs: Laboratory Tests Test 09/13/16 04:40 White Blood Count 20.8x10^3/uL Red Blood Count 3.75x10^6/uL Hemoglobin 11.1g/dL Hematocrit 32.9% Mean Corpuscular Volume 88fL Mean Corpuscular Hemoglobin 30pg Mean Corpuscular Hemoglobin Concent 34g/dL Red Cell Distribution Width 12.5% Platelet Count 302x10^3/uL Neutrophils (%) (Auto) 86% Lymphocytes (%) (Auto) 8% Monocytes (%) (Auto) 6% Eosinophils (%) (Auto) 0% Basophils (%) (Auto) 0% Neutrophils # (Auto) 17.9x10^3uL Lymphocytes # (Auto) 1.6x10^3/uL Monocytes # (Auto) 1.1x10^3/uL Eosinophils # (Auto) 0.1x10^3/uL Basophils # (Auto) 0.0x10^3/uL Sodium Level 131mmol/L Potassium Level 4.3mmol/L Chloride Level 96mmol/L Carbon Dioxide Level 27mmol/L Anion Gap 8 Blood Urea Nitrogen 9mg/dL Creatinine 0.5mg/dL Estimated GFR (Cockcroft-Gault) 214.2 Glucose Level 129mg/dL Calcium Level 8.0mg/dL Phosphorus Level 3.2mg/dL Magnesium Level 1.8mg/dL PE: GEN: NAD LUNGS: CTAB anteriorly HEART: tachycardic ABD: BS+, tender, drains purulent NEURO/PSYCH: A & O 3 A/P: Abdominal pain w/ pneumoperitoneum, abscesses -s/p IR drain placement (x2) -NPO on TPN Leukocytosis, fever, tachycardia -on IV antibiotics -- To OR today. Will follow. UMM RIVAS Sep 13, 2016 12:36
[2016-09-13] MEDS: ENOXAPARIN 40 MG/0.4 ML DISP.SYRIN. SQ SCH (13:00)
[2016-09-13] MEDS ORDERED: MIDAZOLAM HCL 2 MG/2 ML VIAL. ONE (13:23)
[2016-09-13] MEDS ORDERED: DESFLURANE > 120 MINUTES IH ONE (13:23)
[2016-09-13] MEDS ORDERED: GLYCOPYRROLATE 1 MG/5 ML VIAL. ONE (13:23)
[2016-09-13] MEDS ORDERED: NEOSTIGMINE METHYLSULFATE 5 MG/5 ML SYRINGE. ONE (13:23)
[2016-09-13] MEDS ORDERED: FENTANYL PF 100 MCG/2 ML VIAL. ONE ×2 (13:23→17:27)
[2016-09-13] MEDS ORDERED: PROPOFOL 20 ML IV ONE (13:24)
[2016-09-13] MEDS ORDERED: DEXAMETHASONE SOD PHOS 20 MG/5 ML VIAL. ONE (13:24)
[2016-09-13] MEDS ORDERED: ONDANSETRON PF 4 MG/2 ML VIAL. ONE (13:24)
[2016-09-13] MEDS ORDERED: KETOROLAC 30 MG/ML SYRINGE FOR OR. INJ ONE (13:24)
[2016-09-13] MEDS ORDERED: LIDOCAINE 2% 100 MG/5 ML DISP.SYRIN. ONE (13:24)
[2016-09-13] MEDS ORDERED: ROCURONIUM 50 MG/5 ML VIAL. ONE ×2 (13:25→15:43)
[2016-09-13] MEDS ORDERED: SUCCINYLCHOLINE 200 MG/10 ML VIAL. ONE (13:25)
[2016-09-13] MEDS ORDERED: IV RINGERS,LACTATED 1000ML 1,000 ML IV SCH (15:11)
[2016-09-13] MEDS ORDERED: MORPHINE SULFATE 2 MG/ML DISP.SYRIN. IV PRN (15:15)
[2016-09-13] MEDS ORDERED: LIDOCAINE 1% 1 ML SYRINGE. ID PRN (15:15)
[2016-09-13] MEDS ORDERED: PROCHLORPERAZINE 10 MG/2 ML VIAL. IV PRN (15:15)
[2016-09-13] MEDS ORDERED: SEVOFLURANE > 120 MINUTES. IH ONE (17:47)
--- NOTE | 2016-09-13 17:53 | PDOC ---
BRIEF OPERATIVE NOTE Date: Sep 13, 2016 Pre-Op Diagnosis abdominal abscess, perforated viscous Post-Op Diagnosis abdominal abscess Procedure Performed rigid proctoscopy, exploratory laparotomy, VANESSA, appendectomy Surgeon Tyler Master Sheet Clerk Dr Sen Anesthesia Type: General Blood Loss 450cc IV Fluid 2300 Urine Output 175cc Specimens Obtained appendix Findings unable to demonstrate a source of free air from the colon, lots of adhesions 2/ 2 abscesses, intra-loop abscess mid small bowel Complications none RODRIGUE LÓPEZ MD Sep 13, 2016 17:53
[2016-09-13] MEDS ORDERED: 0.9 % SODIUM CHLORIDE 10 ML DISP.SYRIN. IV PRN (18:00)
[2016-09-13] MEDS ORDERED: DIPHENHYDRAMINE HCL 25 MG CAPSULE PO PRN (18:00)
[2016-09-13] MEDS ORDERED: HYDROMORPHONE STANDARD PCA 30 ML IV PRN (18:00)
[2016-09-13] MEDS ORDERED: ENOXAPARIN 40 MG/0.4 ML DISP.SYRIN. SQ SCH (18:00)
[2016-09-13] MEDS ORDERED: ONDANSETRON PF 4 MG/2 ML VIAL. IV PRN (18:00)
[2016-09-13] MEDS ORDERED: DIPHENHYDRAMINE 50 MG/ML VIAL IV PRN (18:00)
[2016-09-13] MEDS: HYDROMORPHONE 2 MG/ML VIAL. IV PRN ×4 (18:12→19:02)
[2016-09-13] MEDS ORDERED: BENZOCAINE/MENTHOL LOZENGE. PO PRN (18:30)
[2016-09-13] MEDS ORDERED: PHENOL ORAL SPRAY 177ML BOTTLE. PO PRN (18:30)
[2016-09-13] MEDS: LORAZEPAM 2 MG/ML VIAL IV PRN (20:24)
[2016-09-13] MEDS ORDERED: AMINO ACIDS IV SCH ×10 (22:00)
[2016-09-13] MEDS ORDERED: DEXTROSE 70% IV SCH ×10 (22:00)
[2016-09-13] MEDS ORDERED: [UNRECOGNIZED DRUG - OTHER] IV SCH ×10 (22:00)
[2016-09-13] MEDS ORDERED: TOTAL PARENTERAL NUTRITION IV SCH ×10 (22:00)
[2016-09-13] MEDS: HYDROMORPHONE STANDARD PCA 30 ML IV PRN (22:57)
[2016-09-14 03:00] VITALS: BP 143/100
[2016-09-14] MEDS: MEROPENEM 1 GM in IV NORMAL SALINE 100ML 100 ML IV SCH ×3 (05:10→21:37)
[2016-09-14] MEDS: METOPROLOL TARTRATE 5 MG/5 ML VIAL. IVP SCH ×4 (05:11→18:47)
[2016-09-14 05:18] LABS: BASO # 0.1 x10^3/uL (0.0-0.2); BASO % 1 % (0-3); EOS % 0 % (0-3); HEMOGLOBIN 11.5 g/dL (13.0-17.5); LYMPH # 0.5 x10^3/uL (1.0-4.8); LYMPH % 2 % (24-48); MEAN CORPUSCULAR HEMOGLOBIN 30 pg (25-35); MEAN CORPUSCULAR HGB CONC 33 g/dL (31-37); MEAN CORPUSCULAR VOLUME 91 fL (79-100); MONO % 3 % (0-9); NEUT % 94 % (31-73); PLATELET COUNT 319 x10^3/uL (140-400); RED BLOOD COUNT 3.84 x10^6/uL (4.30-5.70); RED CELL DISTRIBUTION WIDTH 12.7 % (11.5-14.5); WHITE BLOOD COUNT 21.7 x10^3/uL (4.0-11.0)
[2016-09-14 07:00] VITALS: BP 132/94
--- NOTE | 2016-09-14 07:27 | RAD ---
Portable abdomen, 09/13/2016: History: Postop evaluation Comparison is made to a study from 09/12/2016. Two surgical drains are projected over the left flank region. A tube partially visualized over the left upper quadrant may represent an NG tube. Pigtail drains evident in the left pelvic region on the previous study have been removed. Surgical skin clips overlie the abdomen and pelvis at the midline. The abdominal gas pattern is unremarkable. There is no evidence of a retained surgical instrument, needle or radiopaque sponge on this single view.
[2016-09-14 08:36] LABS: CALCIUM 7.9 mg/dL (8.5-10.1); CREATININE 0.6 mg/dL (0.7-1.3); GFR 173.6; MAGNESIUM 1.8 mg/dL (1.8-2.4); PHOSPHORUS 4.3 mg/dL (2.6-4.7); POTASSIUM 5.1 mmol/L (3.5-5.1)
[2016-09-14] MEDS: PANTOPRAZOLE IV PUSH 40 MG VIAL. IVP SCH (08:40)
--- NOTE | 2016-09-14 10:11 | PDOC ---
Infectious Disease Note Subjective Subjective Doing ok. No Flatus. Pain controlled with PHYSICIAN SUPPORT COORDINATOR ROS ROS GEN: Denies fevers, chills, sweats HEENT: Denies blurred vision, sore throat CV: Denies chest pain RESP: Denies shortness of air, cough GI: Denies n/v/d NEURO: Denies confusion, dizziness MSK: Denies weakness, joint pain/swelling Vital Sign Vital Signs Vital Signs Date Time Temp Pulse Resp B/P Pulse Ox O2 Delivery O2 Flow Rate FiO2 09/14/16 07:00 98.9 127 18 132/94 98 Room Air 98.9 09/13/16 23:30 2.0 Physical Exam PHYSICAL EXAM GENERAL: NAD, Alert HEENT: PERRL, OC/OP - clear. NGT NECK: Supple, no JVD, no LN LUNGS: Clear HEART: S1S2, no gallop, no murmur ABD: Soft, obese, NT, no organomegaly, no rebound. 1 Drains on right and left large drain Gan EXT: No edema, no cyanosis MANAGER CARDIAC CATH: Alert, oriented x 3, no focal neurologic deficit SKIN: No rash IV: PICC -clean Labs Lab Laboratory Tests Test 09/14/16 05:00 09/14/16 07:50 White Blood Count 21.7x10^3/uL (4.0-11.0) Red Blood Count 3.84x10^6/uL (4.30-5.70) Hemoglobin 11.5g/dL (13.0-17.5) Hematocrit 35.0% (39.0-53.0) Mean Corpuscular Volume 91fL (79-100) Mean Corpuscular Hemoglobin 30pg (25-35) Mean Corpuscular Hemoglobin Concent 33g/dL (31-37) Red Cell Distribution Width 12.7% (11.5-14.5) Platelet Count 319x10^3/uL (140-400) Neutrophils (%) (Auto) 94% (31-73) Lymphocytes (%) (Auto) 2% (24-48) Monocytes (%) (Auto) 3% (0-9) Eosinophils (%) (Auto) 0% (0-3) Basophils (%) (Auto) 1% (0-3) Neutrophils # (Auto) 20.4x10^3uL (1.8-7.7) Lymphocytes # (Auto) 0.5x10^3/uL (1.0-4.8) Monocytes # (Auto) 0.6x10^3/uL (0.0-1.1) Eosinophils # (Auto) 0.0x10^3/uL (0.0-0.7) Basophils # (Auto) 0.1x10^3/uL (0.0-0.2) Sodium Level 133mmol/L (136-145) Potassium Level 5.1mmol/L (3.5-5.1) Chloride Level 100mmol/L (98-107) Carbon Dioxide Level 27mmol/L (21-32) Anion Gap 6 (6-14) Blood Urea Nitrogen 9mg/dL (8-26) Creatinine 0.6mg/dL (0.7-1.3) Estimated GFR (Cockcroft-Gault) 173.6 Glucose Level 140mg/dL (70-99) Calcium Level 7.9mg/dL (8.5-10.1) Phosphorus Level 4.3mg/dL (2.6-4.7) Magnesium Level 1.8mg/dL (1.8-2.4) Micro scherichia coli Moderate growth AEROBIC RES 2 Final Escherichia coli Moderate growth AEROBIC RES 3 Final Comment Streptococcus anginosus group Heavy growth ANTIMICROBIAL SUSCEPTIBILITY Final Comment S = Susceptible; I = Intermediate; R = Resistant P = Positive; N = Negative MICS are expressed in micrograms per mL Antibiotic RSLT#1 RSLT#2 RSLT#3 RSLT#4 Amoxicillin/Clavulanic Acid S S Ampicillin R R Cefepime S S Ceftriaxone S S CONTINUED ON NEXT PAGE RUN DATE: 09/07/16 PAGE 2 RUN TIME: 1323 [facility] [address] [place] [address] Conor Young M.D., [employer] SPEC: [id number] PATIENT: YINA KEENE [id number] ( Continued) Procedure Result ANTIMICROBIAL SUSCEPTIBILITY Final (continued) Cefuroxime S S Ciprofloxacin R R Ertapenem S S Gentamicin S S Imipenem S S Levofloxacin R R Piperacillin R R Tetracycline S R Tobramycin S S Trimethoprim/Sulfa R R Performed at: [address] [id number] Inseamer: Bushra Bañuelos MD, Phone: [phone] CT 09/10 IMPRESSION: 1. Successful percutaneous drainage of 2 pelvic fluid collections as described above. 2. Moderate-sized encapsulated fluid collections in the left paracolic gutter and upper pelvis near the midline, and a smaller fluid collection along the lower pole of the left kidney suggest additional abscesses. 3. Tiny amount of fluid in the deep pelvis which may represent free fluid. 4. Mural thickening involving small bowel loops adjacent to the midline pelvic fluid collection probably due to inflammation, with evidence of associated partial small bowel obstruction. Objective Assessment S/p rigid proctoscopy, exploratory laparotomy, VANESSA, appendectomy 09/13 Diverticulitis Perf viscous -on Zosyn initially but changed to Meropenem 09/04 recurrent Abd abscess on CT 09/10- s/ p [address] 09/04 and then 09/11- Ecoli/ second Ecoli/Strep anginosis from 09/04 cults 09/11 pending Leukocytosis - better. clinically stable Plan Plan of Care Cont Abx F/u labs and cults D/w father MIRIAM ORTEZ MD Sep 14, 2016 10:11
[2016-09-14 11:05] VITALS: BP 131/87
[2016-09-14] MEDS: FLUCONAZOLE 400MG/200ML PREMIX 200 ML IV SCH (11:39)
--- NOTE | 2016-09-14 13:02 | PDOC ---
Subjective: Subjective: Pain controlled. Doesn't like NG. No flatus. Objective: Objective: Reviewed Dr. Scott's op note: unable to demonstrate a source of free air from the colon, lots of adhesions 2/2 abscesses, intra-loop abscess mid small bowel Vital Signs: Vital Signs Date Time Temp Pulse Resp B/P Pulse Ox O2 Delivery O2 Flow Rate FiO2 09/14/16 11:05 97.9 114 18 131/87 98 Room Air 97.9 09/13/16 23:30 2.0 PE: GEN: NAD LUNGS: CTAB HEART: tachycardic ABD: drains, dressing dry NEURO/PSYCH: A & O 3 A/P: Abdominal pain w/ pneumoperitoneum, abscesses - s/p IR drain placements 09/04, ; s/p rigid proctoscopy, exploratory laparotomy, VANESSA, appendectomy 09/13 Leukocytosis, tachycardia -- Will follow. UMM RIVAS Sep 14, 2016 13:02
[2016-09-14] MEDS: TPN PER PHARMACY MC PRN (14:03)
--- NOTE | 2016-09-14 14:11 | PDOC ---
SURGICAL PROGRESS NOTE Subjective no new complaints adequate pain control no flatus Vital Signs Vital Signs Date Time Temp Pulse Resp B/P Pulse Ox O2 Delivery O2 Flow Rate FiO2 09/14/16 11:05 97.9 114 18 131/87 98 Room Air 97.9 09/13/16 23:30 2.0 temps down post op, still tachy but not as bad I&O Intake and Output 09/14/16 07:00 Intake Total 3200 ml Output Total 1260 ml Balance 1940 ml IV Total 3200 ml Output Urine Total 775 ml Gastric Drainage Total 5 ml Drainage Total 30 ml Estimated Blood Loss 450 ml PATIENT HAS A BAKER: Yes General: Alert, Oriented X3, No acute distress Abdomen: Soft, Other (drains in place) Labs Laboratory Tests Test 09/13/16 04:40 09/14/16 05:00 09/14/16 07:50 White Blood Count 20.8x10^3/uL (4.0-11.0) 21.7x10^3/uL (4.0-11.0) Red Blood Count 3.75x10^6/uL (4.30-5.70) 3.84x10^6/uL (4.30-5.70) Hemoglobin 11.1g/dL (13.0-17.5) 11.5g/dL (13.0-17.5) Hematocrit 32.9% (39.0-53.0) 35.0% (39.0-53.0) Mean Corpuscular Volume 88fL (79-100) 91fL (79-100) Mean Corpuscular Hemoglobin 30pg (25-35) 30pg (25-35) Mean Corpuscular Hemoglobin Concent 34g/dL (31-37) 33g/dL (31-37) Red Cell Distribution Width 12.5% (11.5-14.5) 12.7% (11.5-14.5) Platelet Count 302x10^3/uL (140-400) 319x10^3/uL (140-400) Neutrophils (%) (Auto) 86% (31-73) 94% (31-73) Lymphocytes (%) (Auto) 8% (24-48) 2% (24-48) Monocytes (%) (Auto) 6% (0-9) 3% (0-9) Eosinophils (%) (Auto) 0% (0-3) 0% (0-3) Basophils (%) (Auto) 0% (0-3) 1% (0-3) Neutrophils # (Auto) 17.9x10^3uL (1.8-7.7) 20.4x10^3uL (1.8-7.7) Lymphocytes # (Auto) 1.6x10^3/uL (1.0-4.8) 0.5x10^3/uL (1.0-4.8) Monocytes # (Auto) 1.1x10^3/uL (0.0-1.1) 0.6x10^3/uL (0.0-1.1) Eosinophils # (Auto) 0.1x10^3/uL (0.0-0.7) 0.0x10^3/uL (0.0-0.7) Basophils # (Auto) 0.0x10^3/uL (0.0-0.2) 0.1x10^3/uL (0.0-0.2) Sodium Level 131mmol/L (136-145) 133mmol/L (136-145) Potassium Level 4.3mmol/L (3.5-5.1) 5.1mmol/L (3.5-5.1) Chloride Level 96mmol/L (98-107) 100mmol/L (98-107) Carbon Dioxide Level 27mmol/L (21-32) 27mmol/L (21-32) Anion Gap 8 (6-14) 6 (6-14) Blood Urea Nitrogen 9mg/dL (8-26) 9mg/dL (8-26) Creatinine 0.5mg/dL (0.7-1.3) 0.6mg/dL (0.7-1.3) Estimated GFR (Cockcroft-Gault) 214.2 173.6 Glucose Level 129mg/dL (70-99) 140mg/dL (70-99) Calcium Level 8.0mg/dL (8.5-10.1) 7.9mg/dL (8.5-10.1) Phosphorus Level 3.2mg/dL (2.6-4.7) 4.3mg/dL (2.6-4.7) Magnesium Level 1.8mg/dL (1.8-2.4) 1.8mg/dL (1.8-2.4) Laboratory Tests Test 09/14/16 05:00 09/14/16 07:50 White Blood Count 21.7x10^3/uL (4.0-11.0) Red Blood Count 3.84x10^6/uL (4.30-5.70) Hemoglobin 11.5g/dL (13.0-17.5) Hematocrit 35.0% (39.0-53.0) Mean Corpuscular Volume 91fL (79-100) Mean Corpuscular Hemoglobin 30pg (25-35) Mean Corpuscular Hemoglobin Concent 33g/dL (31-37) Red Cell Distribution Width 12.7% (11.5-14.5) Platelet Count 319x10^3/uL (140-400) Neutrophils (%) (Auto) 94% (31-73) Lymphocytes (%) (Auto) 2% (24-48) Monocytes (%) (Auto) 3% (0-9) Eosinophils (%) (Auto) 0% (0-3) Basophils (%) (Auto) 1% (0-3) Neutrophils # (Auto) 20.4x10^3uL (1.8-7.7) Lymphocytes # (Auto) 0.5x10^3/uL (1.0-4.8) Monocytes # (Auto) 0.6x10^3/uL (0.0-1.1) Eosinophils # (Auto) 0.0x10^3/uL (0.0-0.7) Basophils # (Auto) 0.1x10^3/uL (0.0-0.2) Sodium Level 133mmol/L (136-145) Potassium Level 5.1mmol/L (3.5-5.1) Chloride Level 100mmol/L (98-107) Carbon Dioxide Level 27mmol/L (21-32) Anion Gap 6 (6-14) Blood Urea Nitrogen 9mg/dL (8-26) Creatinine 0.6mg/dL (0.7-1.3) Estimated GFR (Cockcroft-Gault) 173.6 Glucose Level 140mg/dL (70-99) Calcium Level 7.9mg/dL (8.5-10.1) Phosphorus Level 4.3mg/dL (2.6-4.7) Magnesium Level 1.8mg/dL (1.8-2.4) Problem List Problems Medical Problems: (1) Abdominal abscess Status: Acute (2) Abdominal pain Status: Acute (3) Pneumoperitoneum Status: Acute Assessment/Plan POD 1 ex lap continue post op care OOB Problems: RODRIGUE LÓPEZ MD Sep 14, 2016 14:11
[2016-09-14] MEDS: ENOXAPARIN 40 MG/0.4 ML DISP.SYRIN. SQ SCH (14:23)
[2016-09-14 15:16] VITALS: BP 130/88
[2016-09-14 19:00] VITALS: BP 130/89
--- NOTE | 2016-09-14 19:04 | PDOC ---
PROGRESS NOTES Chief Complaint Chief Complaint cc: abdominal pain A/P Acute abdominal pain 2/2 abdominal abscess, S/P drain placements 09/04, 09/11; s/ p rigid proctoscopy, exploratory laparotomy, VANESSA, appendectomy 09/13 Sepsis- 09/04 - Ecoli/Strep anginosis Perforated viscus Severe malnutrition, on MULTIPLE [employer] for abdominal pain Recurrent abdominal abscess Dehydration Plan Pain control with Dilaudid M[employer] Avoid co2 narcosis abx per ID- Fluconazole and meropenem low dose Metoprolol intake and out put IV NS Follow culture, surgical ID has been following ON TPN, Monitor electrolytes DVT prophylaxis. prognosis guarded, History of Present Illness History of Present Illness no flatus no fever no chills tachycardia Vitals Vitals Vital Signs Date Time Temp Pulse Resp B/P Pulse Ox O2 Delivery O2 Flow Rate FiO2 09/14/16 18:47 123 130/89 09/14/16 15:16 98.3 18 97 Room Air 98.3 09/13/16 23:30 2.0 Physical Exam General: Alert, Oriented X3, No acute distress Heart: Normal S1, Normal S2, No murmurs, Other (Sinus tach) Lungs: Clear Abdomen: Soft, Other (drains in place, no BS) Extremities: No cyanosis, No edema Skin: Other (abdominal drain in place) Labs LABS Laboratory Tests Test 09/14/16 05:00 09/14/16 07:50 White Blood Count 21.7x10^3/uL (4.0-11.0) Red Blood Count 3.84x10^6/uL (4.30-5.70) Hemoglobin 11.5g/dL (13.0-17.5) Hematocrit 35.0% (39.0-53.0) Mean Corpuscular Volume 91fL (79-100) Mean Corpuscular Hemoglobin 30pg (25-35) Mean Corpuscular Hemoglobin Concent 33g/dL (31-37) Red Cell Distribution Width 12.7% (11.5-14.5) Platelet Count 319x10^3/uL (140-400) Neutrophils (%) (Auto) 94% (31-73) Lymphocytes (%) (Auto) 2% (24-48) Monocytes (%) (Auto) 3% (0-9) Eosinophils (%) (Auto) 0% (0-3) Basophils (%) (Auto) 1% (0-3) Neutrophils # (Auto) 20.4x10^3uL (1.8-7.7) Lymphocytes # (Auto) 0.5x10^3/uL (1.0-4.8) Monocytes # (Auto) 0.6x10^3/uL (0.0-1.1) Eosinophils # (Auto) 0.0x10^3/uL (0.0-0.7) Basophils # (Auto) 0.1x10^3/uL (0.0-0.2) Sodium Level 133mmol/L (136-145) Potassium Level 5.1mmol/L (3.5-5.1) Chloride Level 100mmol/L (98-107) Carbon Dioxide Level 27mmol/L (21-32) Anion Gap 6 (6-14) Blood Urea Nitrogen 9mg/dL (8-26) Creatinine 0.6mg/dL (0.7-1.3) Estimated GFR (Cockcroft-Gault) 173.6 Glucose Level 140mg/dL (70-99) Calcium Level 7.9mg/dL (8.5-10.1) Phosphorus Level 4.3mg/dL (2.6-4.7) Magnesium Level 1.8mg/dL (1.8-2.4) Assessment and Plan Assessmemt and Plan Problems Medical Problems: (1) Abdominal abscess Status: Acute (2) Abdominal pain Status: Acute (3) Pneumoperitoneum Status: Acute Problems: Comment Review of Relevant I have reviewed the following items crystal (where applicable) has been applied. Labs Laboratory Tests Test 09/13/16 04:40 09/14/16 05:00 09/14/16 07:50 White Blood Count 20.8x10^3/uL (4.0-11.0) 21.7x10^3/uL (4.0-11.0) Red Blood Count 3.75x10^6/uL (4.30-5.70) 3.84x10^6/uL (4.30-5.70) Hemoglobin 11.1g/dL (13.0-17.5) 11.5g/dL (13.0-17.5) Hematocrit 32.9% (39.0-53.0) 35.0% (39.0-53.0) Mean Corpuscular Volume 88fL (79-100) 91fL (79-100) Mean Corpuscular Hemoglobin 30pg (25-35) 30pg (25-35) Mean Corpuscular Hemoglobin Concent 34g/dL (31-37) 33g/dL (31-37) Red Cell Distribution Width 12.5% (11.5-14.5) 12.7% (11.5-14.5) Platelet Count 302x10^3/uL (140-400) 319x10^3/uL (140-400) Neutrophils (%) (Auto) 86% (31-73) 94% (31-73) Lymphocytes (%) (Auto) 8% (24-48) 2% (24-48) Monocytes (%) (Auto) 6% (0-9) 3% (0-9) Eosinophils (%) (Auto) 0% (0-3) 0% (0-3) Basophils (%) (Auto) 0% (0-3) 1% (0-3) Neutrophils # (Auto) 17.9x10^3uL (1.8-7.7) 20.4x10^3uL (1.8-7.7) Lymphocytes # (Auto) 1.6x10^3/uL (1.0-4.8) 0.5x10^3/uL (1.0-4.8) Monocytes # (Auto) 1.1x10^3/uL (0.0-1.1) 0.6x10^3/uL (0.0-1.1) Eosinophils # (Auto) 0.1x10^3/uL (0.0-0.7) 0.0x10^3/uL (0.0-0.7) Basophils # (Auto) 0.0x10^3/uL (0.0-0.2) 0.1x10^3/uL (0.0-0.2) Sodium Level 131mmol/L (136-145) 133mmol/L (136-145) Potassium Level 4.3mmol/L (3.5-5.1) 5.1mmol/L (3.5-5.1) Chloride Level 96mmol/L (98-107) 100mmol/L (98-107) Carbon Dioxide Level 27mmol/L (21-32) 27mmol/L (21-32) Anion Gap 8 (6-14) 6 (6-14) Blood Urea Nitrogen 9mg/dL (8-26) 9mg/dL (8-26) Creatinine 0.5mg/dL (0.7-1.3) 0.6mg/dL (0.7-1.3) Estimated GFR (Cockcroft-Gault) 214.2 173.6 Glucose Level 129mg/dL (70-99) 140mg/dL (70-99) Calcium Level 8.0mg/dL (8.5-10.1) 7.9mg/dL (8.5-10.1) Phosphorus Level 3.2mg/dL (2.6-4.7) 4.3mg/dL (2.6-4.7) Magnesium Level 1.8mg/dL (1.8-2.4) 1.8mg/dL (1.8-2.4) Laboratory Tests Test 09/14/16 05:00 09/14/16 07:50 White Blood Count 21.7x10^3/uL (4.0-11.0) Red Blood Count 3.84x10^6/uL (4.30-5.70) Hemoglobin 11.5g/dL (13.0-17.5) Hematocrit 35.0% (39.0-53.0) Mean Corpuscular Volume 91fL (79-100) Mean Corpuscular Hemoglobin 30pg (25-35) Mean Corpuscular Hemoglobin Concent 33g/dL (31-37) Red Cell Distribution Width 12.7% (11.5-14.5) Platelet Count 319x10^3/uL (140-400) Neutrophils (%) (Auto) 94% (31-73) Lymphocytes (%) (Auto) 2% (24-48) Monocytes (%) (Auto) 3% (0-9) Eosinophils (%) (Auto) 0% (0-3) Basophils (%) (Auto) 1% (0-3) Neutrophils # (Auto) 20.4x10^3uL (1.8-7.7) Lymphocytes # (Auto) 0.5x10^3/uL (1.0-4.8) Monocytes # (Auto) 0.6x10^3/uL (0.0-1.1) Eosinophils # (Auto) 0.0x10^3/uL (0.0-0.7) Basophils # (Auto) 0.1x10^3/uL (0.0-0.2) Sodium Level 133mmol/L (136-145) Potassium Level 5.1mmol/L (3.5-5.1) Chloride Level 100mmol/L (98-107) Carbon Dioxide Level 27mmol/L (21-32) Anion Gap 6 (6-14) Blood Urea Nitrogen 9mg/dL (8-26) Creatinine 0.6mg/dL (0.7-1.3) Estimated GFR (Cockcroft-Gault) 173.6 Glucose Level 140mg/dL (70-99) Calcium Level 7.9mg/dL (8.5-10.1) Phosphorus Level 4.3mg/dL (2.6-4.7) Magnesium Level 1.8mg/dL (1.8-2.4) Microbiology 08/30/16 Blood Culture - Final, Complete NO GROWTH AFTER 5 DAYS 09/11/16 Gram Stain - Final, Complete 08/30/16 Urine Culture - Final, Complete 08/30/16 Urine Culture Result 1 (TOAN) - Final, Complete 09/13/16 Gram Stain - Final, Complete Medications Current Medications Sodium Chloride (Iv Sodium Chloride 0.9% 1000ml Bag) 1,000 ml @ 1,000 mls/hr Q1H IV Last administered on 08/30/16 19:58; Start 08/30/16 at 19:45; Stop 07/06 at 20:44; Status DC Morphine Sulfate 4 mg 1X ONCE IV Last administered on 08/30/16 19:58; Start 08/30/16 at 19:45; Stop 08/30/16 at 19:46; Status DC Ondansetron HCl (Zofran) 4 mg 1X ONCE IV Last administered on 08/30/16 19:57 ; Start 08/30/16 at 19:45; Stop 08/30/16 at 19:46; Status DC Iohexol (Omnipaque 300 Mg/ml) 75 ml 1X ONCE IV Last administered on 08/30/16 20:57; Start 08/30/16 at 20:00; Stop 08/30/16 at 20:01; Status DC Morphine Sulfate 4 mg 1X ONCE IV Last administered on 08/30/16 22:22; Start 08/30/16 at 21:45; Stop 08/30/16 at 21:46; Status DC Piperacillin Sod/ Tazobactam Sod 1 each 1 each PRN DAILY PRN MC SEE COMMENTS; Start 08/30/16 at 21:45; Stop 09/02/16 at 13:43; Status DC Piperacillin Sod/ Tazobactam Sod/ Sodium Chloride (Zosyn/Iv Sodium Chloride 0.9 % 50ml) 50 ml @ 100 mls/hr Q6HRS IV Last administered on 09/04/16 05:07; Start 08/30/16 at 22:00; Stop 09/04/16 at 10:30; Status DC Ondansetron HCl (Zofran) 4 mg PRN Q8HRS PRN IV NAUSEA/VOMITING; Start 08/30/16 at 22:30; Stop 08/31/16 at 22:29; Status DC Morphine Sulfate 4 mg 4 mg PRN Q2HR PRN IV PAIN Last administered on 08/30/16 23:16; Start 08/30/16 at 22:30; Stop 08/31/16 at 22:29; Status DC Sodium Chloride (Iv Sodium Chloride 0.9% 1000ml Bag) 1,000 ml @ 125 mls/hr Q8H IV Last administered on 08/31/16 09:13; Start 08/30/16 at 22:30; Stop at 13:05; Status DC Acetaminophen 650 mg 650 mg PRN Q4HRS PRN PO FEVER Last administered on 23:15; Start 08/30/16 at 22:30; Stop 08/31/16 at 22:29; Status DC Hydromorphone HCl 30 ml @ 0 mls/hr CONT PRN PRN IV PROTOCOL Last administered on 09/13/16 22:57; Start 08/30/16 at 23:30 Potassium Chloride/Dextrose/ Sod Cl 1,000 ml @ 100 mls/hr Q10H IV Last administered on 09/01/16 03:52; Start 08/31/16 at 13:15; Stop 09/01/16 at 14:37 ; Status DC Sodium Chloride 1,000 ml @ 1,000 mls/hr 1X ONCE IV Last administered on 14:24; Start 08/31/16 at 13:15; Stop 08/31/16 at 14:14; Status DC Albumin Human (Plasmanate) 500 ml @ 125 mls/hr 1X ONCE IV Last administered on 08/31/16 17:21; Start 08/31/16 at 17:00; Stop 08/31/16 at 20:59; Status DC Ondansetron HCl 4 mg 4 mg PRN Q6HRS PRN IV NAUSEA/VOMITING Last administered on 09/12/16 16:07; Start 08/31/16 at 22:45 Amino Acids/ Glycerin/ Electrolytes (Procalamine) 1,000 ml @ 100 mls/hr Q10H IV Last administered on 09/05/16 10:00; Start 09/01/16 at 14:45; Stop at 21:59; Status DC Acetaminophen (Tylenol) [address] MILD PAIN / TEMP Last administered on 09/13/16 06:14; Start 09/01/16 at 20:30 Lorazepam (Ativan) 1 mg PRN Q4HRS PRN IV ANXIETY / AGITATION Last administered on 09/13/16 20:24; Start 09/02/16 at 10:30 Saliva Substitute (Biotene Moisturizing Mouth) 2 spray PRN Q15MIN PRN PO DRY MOUTH Last administered on 09/02/16 18:13; Start 09/02/16 at 10:30 Iohexol (Omnipaque 240 Mg/ml) 30 ml 1X ONCE PO Last administered on 09/03/16 10:18; Start 09/03/16 at 09:00; Stop 09/03/16 at 09:01; Status DC Iohexol (Omnipaque 300 Mg/ml) 75 ml 1X ONCE IV Last administered on 09/03/16 10:18; Start 09/03/16 at 09:00; Stop 09/03/16 at 09:01; Status DC Info (Do NOT chart on this entry -- for MONITORING) 1 each PRN DAILY PRN MC SEE COMMENTS; Start 09/03/16 at 08:45; Stop 09/05/16 at 08:44; Status DC Info 1 each PRN DAILY PRN MC SEE COMMENTS Last administered on 09/14/16 14:03 ; Start 09/04/16 at 15:00 Midazolam HCl (Versed) 5 mg STK-MED ONCE .ROUTE ; Start 09/04/16 at 09:54; Stop 09/04/16 at 09:55; Status DC Fentanyl Citrate (Fentanyl 5ml Vial) 250 mcg STK-MED ONCE .ROUTE ; Start at 09:54; Stop 09/04/16 at 09:55; Status DC Lidocaine/Sodium Bicarbonate 20 ml 20 ml STK-MED ONCE IJ ; Start 09/04/16 at 09: 55; Stop 09/04/16 at 09:56; Status DC Meropenem 1 gm/ Sodium Chloride 100 ml @ 200 mls/hr Q8HRS IV Last administered on 09/14/16 14:22; Start 09/04/16 at 14:00 Fluconazole/ Sodium Chloride (Diflucan 400mg/ 200ml Premix) 200 ml @ 100 mls/ hr Q24H IV Last administered on 09/14/16 11:39; Start 09/04/16 at 11:00 Lidocaine/Sodium Bicarbonate (Buffered Lidocaine 1%) 3 ml 1X ONCE IJ Last administered on 09/04/16 10:49; Start 09/04/16 at 10:45; Stop 09/04/16 at 10:48 ; Status DC Midazolam HCl (Versed) 0.5 mg 1X ONCE IV Last administered on 09/04/16 10:50 ; Start 09/04/16 at 10:45; Stop 09/04/16 at 10:48; Status DC Fentanyl Citrate 100 mcg 100 mcg 1X ONCE IV Last administered on 09/04/16 10: 50; Start 09/04/16 at 10:45; Stop 09/04/16 at 10:48; Status DC Sodium Chloride 90 meq/Potassium Chloride 50 meq/ Potassium Phosphate 13.6 mmol/ Magnesium Sulfate 10 meq/ Calcium Gluconate 10 meq/ Multivitamins/ Minerals 10 ml/ Chromium/Copper/ Manganese/Seleni/ Zn 1 ml/Total Parenteral Nutrition/Amino Acids/Dextrose/ Fat Emulsion Intravenous 1,512 ml @ 63 mls/hr TPN CONT IV Last administered on 09/05/16 20:50; Start 09/05/16 at 22:00; Stop 09/06/16 at 21:59; Status DC Levofloxacin/ Dextrose 150 ml @ 100 mls/hr 1X ONCE IV Last administered on 09:00; Start 09/06/16 at 09:00; Stop 09/06/16 at 10:29; Status DC Sodium Chloride/ Potassium Chloride/ Potassium Phosphate/ Magnesium Sulfate/ Calcium Gluconate/ Multivitamins/ Minerals/Chromium/ Copper/Manganese/ Seleni/Zn /Total Parenteral Nutrition/Amino Acids/Dextrose/ Fat Emulsion Intravenous ( Sodium Chloride/ Potassium Phospha... 1,512 ml @ 63 mls/hr TPN CONT IV Last administered on 09/06/16 21:49; Start 09/06/16 at 22:00; Stop 09/07/16 at 21:59 ; Status DC Alteplase, Recombinant (Cathflo) 2 mg 1X ONCE INT CAT Last administered on 20:43; Start 09/07/16 at 10:00; Stop 09/07/16 at 10:01; Status DC Vancomycin HCl (Vanco Per Pharmacy) 1 each PRN DAILY PRN MC SEE COMMENTS Last administered on 09/08/16 16:02; Start 09/07/16 at 10:30; Stop 09/11/16 at 10:23 ; Status DC Gentamicin Sulfate 1 each 1 each PRN DAILY PRN MC SEE COMMENTS; Start 09/07/16 at 10:15; Stop 09/07/16 at 13:00; Status DC Vancomycin HCl 2 gm/Sodium Chloride 500 ml @ 250 mls/hr 1X ONCE IV Last administered on 09/07/16 14:58; Start 09/07/16 at 11:00; Stop 09/07/16 at 12:59 ; Status DC Gentamicin Sulfate 500 mg/ Sodium Chloride 112.5 ml @ 112.5 mls/ hr 1X ONCE IV Last administered on 09/07/16 12:52; Start 09/07/16 at 11:00; Stop at 11:59; Status DC Sodium Chloride 90 meq/Potassium Chloride 50 meq/ Potassium Phosphate 13.6 mmol/ Magnesium Sulfate 10 meq/ Calcium Gluconate 10 meq/ Multivitamins/ Minerals 10 ml/ Chromium/Copper/ Manganese/Seleni/ Zn 1 ml/Total Parenteral Nutrition/Amino Acids/Dextrose/ Fat Emulsion Intravenous 1,512 ml @ 63 mls/hr TPN CONT IV Last administered on 09/07/16 21:41; Start 09/07/16 at 22:00; Stop 09/08/16 at 21:59; Status DC Vancomycin HCl/ Sodium Chloride (Iv Sodium Chloride 0.9% 250ml) 250 ml @ 167 mls/hr Q8H IV Last administered on 09/08/16 05:39; Start 09/07/16 at 23:00; Stop 09/08/16 at 15:54; Status DC Vancomycin HCl 1 each 1 each 1X ONCE MC Last administered on 09/08/16 14:30; Start 09/08/16 at 14:30; Stop 09/08/16 at 14:31; Status DC Sodium Chloride/ Potassium Chloride/ Potassium Phosphate/ Magnesium Sulfate/ Calcium Gluconate/ Multivitamins/ Minerals/Chromium/ Copper/Manganese/ Seleni/Zn /Total Parenteral Nutrition/Amino Acids/Dextrose/ Fat Emulsion Intravenous ( Sodium Chloride/ Potassium Phospha... 1,512 ml @ 63 mls/hr TPN CONT IV Last administered on 09/08/16 22:23; Start 09/08/16 at 22:00; Stop 09/09/16 at 21:59 ; Status DC Pantoprazole Sodium 40 mg 40 mg DAILYAC IVP Last administered on 09/14/16 08: 40; Start 09/08/16 at 15:00 Vancomycin HCl 1.25 gm/Sodium Chloride 250 ml @ 167 mls/hr Q6HRS IV Last administered on 09/11/16 06:14; Start 09/08/16 at 17:00; Stop 09/11/16 at 10:23 ; Status DC Sodium Chloride 120 meq/Potassium Chloride 50 meq/ Potassium Phosphate 13.6 mmol /Magnesium Sulfate 10 meq/ Calcium Gluconate 10 meq/ Multivitamins/ Minerals 10 ml/ Chromium/Copper/ Manganese/Seleni/ Zn 1 ml/Total Parenteral Nutrition/Amino Acids/Dextrose/ Fat Emulsion Intravenous 1,512 ml @ 63 mls/hr TPN CONT IV Last administered on 09/09/16 22:37; Start 09/09/16 at 22:00; Stop 09/10/16 at 21:59; Status DC Sodium Chloride/ Potassium Chloride/ Potassium Phosphate/ Magnesium Sulfate/ Calcium Gluconate/ Multivitamins/ Minerals/Chromium/ Copper/Manganese/ Seleni/Zn /Total Parenteral Nutrition/Amino Acids/Dextrose/ Fat Emulsion Intravenous ( Sodium Chloride/ Potassium Phospha... 1,512 ml @ 63 mls/hr TPN CONT IV Last administered on 09/10/16 21:57; Start 09/10/16 at 22:00; Stop 09/11/16 at 21:59 ; Status DC Iohexol (Omnipaque 240 Mg/ml) 30 ml 1X ONCE PO Last administered on 09/10/16 14:15; Start 09/10/16 at 14:15; Stop 09/10/16 at 14:21; Status DC Iohexol (Omnipaque 300 Mg/ml) 75 ml 1X ONCE IV Last administered on 09/10/16 15:41; Start 09/10/16 at 14:15; Stop 09/10/16 at 14:21; Status DC Info (Do NOT chart on this entry -- for MONITORING) 1 each PRN DAILY PRN MC SEE COMMENTS; Start 09/10/16 at 14:30; Stop 09/12/16 at 14:29; Status DC Lidocaine/Sodium Bicarbonate (Buffered Lidocaine 1%) 20 ml STK-MED ONCE IJ ; Start 09/11/16 at 13:02; Stop 09/11/16 at 13:03; Status DC Fentanyl Citrate (Fentanyl 2ml Vial) 100 mcg STK-MED ONCE .ROUTE ; Start at 13:20; Stop 09/11/16 at 13:21; Status DC Midazolam HCl 5 mg 5 mg STK-MED ONCE .ROUTE ; Start 09/11/16 at 13:20; Stop at 13:21; Status DC Sodium Chloride/ Potassium Chloride/ Potassium Phosphate/ Magnesium Sulfate/ Calcium Gluconate/ Multivitamins/ Minerals/Chromium/ Copper/Manganese/ Seleni/Zn /Total Parenteral Nutrition/Amino Acids/Dextrose/ Fat Emulsion Intravenous ( Sodium Chloride/ Potassium Phospha... 1,512 ml @ 63 mls/hr TPN CONT IV Last administered on 09/11/16 21:06; Start 09/11/16 at 22:00; Stop 09/12/16 at 21:59 ; Status DC Lidocaine/Sodium Bicarbonate (Buffered Lidocaine 1%) 20 ml 1X ONCE IJ Last administered on 09/11/16 14:00; Start 09/11/16 at 14:00; Stop 09/11/16 at 14:01 ; Status DC Midazolam HCl (Versed) 5 mg 1X ONCE IV Last administered on 09/11/16 14:00; Start 09/11/16 at 14:00; Stop 09/11/16 at 14:01; Status DC Fentanyl Citrate (Fentanyl 2ml Vial) 100 mcg 1X ONCE IV Last administered on 14:00; Start 09/11/16 at 14:00; Stop 09/11/16 at 14:01; Status DC Metoprolol Tartrate 5 mg 5 mg Q6HRS IVP Last administered on 09/14/16 18:47; Start 09/11/16 at 22:00 Dextrose/Sodium Chloride (Iv D5% - NS) 1,000 ml @ 125 mls/hr 1X ONCE IV Last administered on 09/12/16 10:29; Start 09/12/16 at 10:30; Stop 09/12/16 at 18:29 ; Status DC Enoxaparin Sodium 40 mg 40 mg Q24H SQ Last administered on 09/14/16 14:23; Start 09/12/16 at 13:00 Sodium Chloride 1,000 ml @ 75 mls/hr 1X ONCE IV Last administered on 21:27; Start 09/12/16 at 12:00; Stop 09/13/16 at 01:19; Status DC Sodium Chloride/ Potassium Chloride/ Potassium Phosphate/ Magnesium Sulfate/ Calcium Gluconate/ Multivitamins/ Minerals/Chromium/ Copper/Manganese/ Seleni/Zn /Total Parenteral Nutrition/Amino Acids/Dextrose/ Fat Emulsion Intravenous ( Sodium Chloride/ Potassium Phospha... 1,512 ml @ 63 mls/hr TPN CONT IV Last administered on 09/12/16 19:52; Start 09/12/16 at 22:00; Stop 09/13/16 at 21:59 ; Status DC Desflurane (Suprane) 90 ml STK-MED ONCE IH ; Start 09/13/16 at 13:23; Stop 09/13 at 13:24; Status DC Fentanyl Citrate (Fentanyl 2ml Vial) 100 mcg STK-MED ONCE .ROUTE ; Start at 13:23; Stop 09/13/16 at 13:24; Status DC Midazolam HCl (Versed) 2 mg STK-MED ONCE .ROUTE ; Start 09/13/16 at 13:23; Stop 09/13/16 at 13:24; Status DC Glycopyrrolate (Robinul) 1 mg STK-MED ONCE .ROUTE ; Start 09/13/16 at 13:23; Stop 09/13/16 at 13:24; Status DC Neostigmine Methylsulfate 5 mg 5 mg STK-MED ONCE .ROUTE ; Start 09/13/16 at 13: 23; Stop 09/13/16 at 13:24; Status DC Propofol (Diprivan) 20 ml @ As Directed STK-MED ONCE IV ; Start 09/13/16 at 13: 24; Stop 09/13/16 at 13:25; Status DC Dexamethasone Sodium Phosphate (Decadron) 20 mg STK-MED ONCE .ROUTE ; Start at 13:24; Stop 09/13/16 at 13:25; Status DC Ketorolac Tromethamine (Toradol For Or Only) 30 mg STK-MED ONCE INJ ; Start at 13:24; Stop 09/13/16 at 13:25; Status DC Ondansetron HCl (Zofran) 4 mg STK-MED ONCE .ROUTE ; Start 09/13/16 at 13:24; Stop 09/13/16 at 13:25; Status DC Lidocaine HCl 100 mg STK-MED ONCE .ROUTE ; Start 09/13/16 at 13:24; Stop at 13:25; Status DC Succinylcholine Chloride (Anectine) 200 mg STK-MED ONCE .ROUTE ; Start 09/13/16 at 13:25; Stop 09/13/16 at 13:26; Status DC Rocuronium Gardner 50 mg 50 mg STK-MED ONCE .ROUTE ; Start 09/13/16 at 13:25; Stop 09/13/16 at 13:26; Status DC Sodium Chloride/ Potassium Chloride/ Potassium Phosphate/ Magnesium Sulfate/ Calcium Gluconate/ Multivitamins/ Minerals/Chromium/ Copper/Manganese/ Seleni/Zn /Total Parenteral Nutrition/Amino Acids/Dextrose/ Fat Emulsion Intravenous ( Sodium Chloride/ Potassium Phospha... 1,512 ml @ 63 mls/hr TPN CONT IV Last administered on 09/13/16t 19:36; Start 09/13/16 at 22:00; Stop 09/14/16 at 21:59 Morphine Sulfate 1 mg 1 mg PRN Q10MIN PRN IV SEVERE PAIN; Start 09/13/16 at 15: 15; Stop 09/14/16 at 15:14; Status DC Lactated Ringer's (Iv Lactated Ringers) 1,000 ml @ 0 mls/hr Q0M IV ; Start at 15:11; Stop 09/14/16 at 03:10; Status DC Lidocaine HCl 2 ml 1X PRN PRN ID IV START; Start 09/13/16 at 15:15; Stop at 15:14; Status DC Hydromorphone HCl (Dilaudid) 0.5 mg PRN Q10MIN PRN IV SEV PAIN,Second choice Last administered on 09/13/16 19:02; Start 09/13/16 at 15:15; Stop 09/14/16 at 15:14; Status DC Prochlorperazine Edisylate (Compazine) 5 mg PACU PRN PRN IV NAUSEA; Start 09/13 at 15:15; Stop 09/14/16 at 15:14; Status DC Rocuronium Gardner (Zemuron) 50 mg STK-MED ONCE .ROUTE ; Start 09/13/16 at 15:43 ; Stop 09/13/16 at 15:44; Status DC Fentanyl Citrate (Fentanyl 2ml Vial) 100 mcg STK-MED ONCE .ROUTE ; Start at 17:27; Stop 09/13/16 at 17:28; Status DC Sevoflurane (Ultane) 90 ml STK-MED ONCE IH ; Start 09/13/16 at 17:47; Stop 09/13 at 17:48; Status DC Diphenhydramine HCl (Benadryl) 25 mg PRN Q6HRS PRN PO ITCHING; Start 09/13/16 at 18:00 Diphenhydramine HCl (Benadryl) 25 mg PRN Q6HRS PRN IV ITCHING; Start 09/13/16 at 18:00 Enoxaparin Sodium (Lovenox 40mg Syringe) 40 mg Q24H SQ ; Start 09/13/16 at 18:00 ; Status UNV Sodium Chloride 3 ml 3 ml QSHIFT PRN IV AFTER MEDS AND BLOOD DRAWS; Start 09/13 at 18:00 Hydromorphone HCl (Dilaudid Standard MULTIPLE LA[employer]CH [employer]OCK[employer]) 30 ml @ 0 mls/hr CONT PRN PRN IV PROTOCOL; Start 09/13/16 at 18:00; Stop 09/14/16 at 12:34; Status DC Ondansetron HCl (Zofran) 4 mg PRN Q6HRS PRN IV NAUESA, 1ST CHOICE; Start at 18:00; Status UNV Throat Lozenges (Chloraseptic) 1 spray PRN Q2HR PRN PO SORE THROAT Last administered on 09/14/16t 11:39; Start 09/13/16 at 18:30 Throat Lozenges 1 nabila 1 nabila PRN Q2HRS PRN PO SORE THROAT Last administered on t 14:26; Start 09/13/16 at 18:30 Sodium Chloride/ Potassium Chloride/ Potassium Phosphate/ Magnesium Sulfate/ Calcium Gluconate/ Multivitamins/ Minerals/Chromium/ Copper/Manganese/ Seleni/Zn /Total Parenteral Nutrition/Amino Acids/Dextrose/ Fat Emulsion Intravenous ( Sodium Chloride/ Potassium Phospha... 1,512 ml @ 63 mls/hr TPN CONT IV ; Start 09/14/16 at 22:00; Stop 09/15/16 at 21:59 Vitals/I & O Vital Sign - Last 24 Hours 09/13/16 09/13/16 09/13/16 09/13/16 19:02 19:20 19:35 19:45 Temp 99.0 98.5 98.7 99.0 98.5 98.7 Pulse 121 20 131 Resp 20 20 20 20 B/P 136/96 138/98 144/98 Pulse Ox 99 99 99 99 O2 Delivery Nasal Cannula Nasal Cannula Nasal Cannula O2 Flow Rate 2.0 2.0 2.0 09/13/16 09/13/16 09/13/16 09/13/16 20:00 20:00 20:25 20:30 Temp 98.6 98.6 98.6 98.6 Pulse 132 132 83 Resp 20 20 B/P 139/98 139/98 135/92 Pulse Ox 99 98 O2 Delivery Room Air Nasal Cannula Nasal Cannula O2 Flow Rate 2.0 2.0 09/13/16 09/13/16 09/13/16 09/13/16 21:00 22:30 22:57 23:27 Temp 98.4 98.6 98.4 98.6 Pulse 122 125 Resp 18 20 18 18 B/P 123/89 130/97 Pulse Ox 98 98 O2 Delivery Nasal Cannula Nasal Cannula Room Air Room Air O2 Flow Rate 2.0 2.0 09/13/16 09/14/16 09/14/16 09/14/16 23:30 03:00 05:11 07:00 Temp 98.2 98.6 98.9 98.2 98.6 98.9 Pulse 126 137 137 127 Resp 18 B/P 131/97 143/100 143/100 132/94 Pulse Ox 96 98 98 O2 Delivery Nasal Cannula Room Air O2 Flow Rate 2.0 09/14/16 09/14/16 09/14/16 09/14/16 08:00 11:05 14:23 15:16 Temp 97.9 98.3 97.9 98.3 Pulse 114 134 132 Resp 18 B/P 131/87 130/88 130/88 Pulse Ox 98 97 O2 Delivery Room Air Room Air Room Air 09/14/16 18:47 Pulse 123 B/P 130/89 Intake and Output 09/13/16 09/13/16 09/14/16 15:00 23:00 07:00 Intake Total 300 ml 2900 ml Output Total 910 ml 350 ml Balance 300 ml 1990 ml -350 ml YUN AHN MD Sep 14, 2016 19:04
[2016-09-14] MEDS ORDERED: [UNRECOGNIZED DRUG - OTHER] IV SCH ×10 (22:00)
[2016-09-14] MEDS ORDERED: AMINO ACIDS IV SCH ×10 (22:00)
[2016-09-14] MEDS ORDERED: DEXTROSE 70% IV SCH ×10 (22:00)
[2016-09-14] MEDS ORDERED: TOTAL PARENTERAL NUTRITION IV SCH ×10 (22:00)
[2016-09-14 23:00] VITALS: BP 126/88
[2016-09-15] MEDS: METOPROLOL TARTRATE 5 MG/5 ML VIAL. IVP SCH ×5 (00:31→23:50)
[2016-09-15 03:00] VITALS: BP 121/82
[2016-09-15] MEDS: MEROPENEM 1 GM in IV NORMAL SALINE 100ML 100 ML IV SCH ×3 (05:39→21:59)
[2016-09-15 06:53] LABS: CALCIUM 7.5 mg/dL (8.5-10.1); CREATININE 0.5 mg/dL (0.7-1.3); GFR 214.2; PHOSPHORUS 3.2 mg/dL (2.6-4.7); POTASSIUM 4.2 mmol/L (3.5-5.1)
[2016-09-15 07:00] VITALS: BP 122/79
[2016-09-15] MEDS: PANTOPRAZOLE IV PUSH 40 MG VIAL. IVP SCH (09:11)
--- NOTE | 2016-09-15 09:15 | PDOC ---
Infectious Disease Note Subjective Subjective Doing ok. No Flatus. Pain controlled with BOTTOM PRESSER. Does have pain with sitting forward ROS ROS GEN: Denies fevers, chills, sweats HEENT: Denies blurred vision, sore throat CV: Denies chest pain RESP: Denies shortness of air, cough GI: Denies n/v/d NEURO: Denies confusion, dizziness MSK: Denies weakness, joint pain/swelling Vital Sign Vital Signs Vital Signs Date Time Temp Pulse Resp B/P Pulse Ox O2 Delivery O2 Flow Rate FiO2 09/15/16 07:00 98.4 77 18 122/79 98 Room Air 98.4 Physical Exam PHYSICAL EXAM GENERAL: NAD, Alert. Looks better HEENT: PERRL, OC/OP - clear NECK: Supple, no JVD, no LN LUNGS: Clear HEART: S1S2, no gallop, no murmur ABD: Soft, NT, no organomegaly, no rebound. Wound clean. 2 drains EXT: No edema, no cyanosis CHIEF MEDICAL PHYSICIST: Alert, oriented x 3, no focal neurologic deficit SKIN: No rash IV: PICC - clean Labs Lab Laboratory Tests Test 09/15/16 05:55 Sodium Level 137mmol/L (136-145) Potassium Level 4.2mmol/L (3.5-5.1) Chloride Level 101mmol/L (98-107) Carbon Dioxide Level 30mmol/L (21-32) Anion Gap 6 (6-14) Blood Urea Nitrogen 11mg/dL (8-26) Creatinine 0.5mg/dL (0.7-1.3) Estimated GFR (Cockcroft-Gault) 214.2 Glucose Level 126mg/dL (70-99) Calcium Level 7.5mg/dL (8.5-10.1) Phosphorus Level 3.2mg/dL (2.6-4.7) Micro scherichia coli Moderate growth AEROBIC RES 2 Final Escherichia coli Moderate growth AEROBIC RES 3 Final Comment Streptococcus anginosus group Heavy growth ANTIMICROBIAL SUSCEPTIBILITY Final Comment S = Susceptible; I = Intermediate; R = Resistant P = Positive; N = Negative MICS are expressed in micrograms per mL Antibiotic RSLT#1 RSLT#2 RSLT#3 RSLT#4 Amoxicillin/Clavulanic Acid S S Ampicillin R R Cefepime S S Ceftriaxone S S CONTINUED ON NEXT PAGE RUN DATE: 09/07/16 PAGE 2 RUN TIME: 1325 [facility] [address] [facility] [place] [address] Conor Young M.D., [place] Cutting Machine Tender SPEC: [id number] PATIENT: YINA KEENE [id number] ( Continued) Procedure Result ANTIMICROBIAL SUSCEPTIBILITY Final (continued) Cefuroxime S S Ciprofloxacin R R Ertapenem S S Gentamicin S S Imipenem S S Levofloxacin R R Piperacillin R R Tetracycline S R Tobramycin S S Trimethoprim/Sulfa R R Performed at: [facility] [address] [id number] Radio Assembler: Bushra Bañuelos MD, Phone: [phone] CT 09/10 IMPRESSION: 1. Successful percutaneous drainage of 2 pelvic fluid collections as described above. 2. Moderate-sized encapsulated fluid collections in the left paracolic gutter and upper pelvis near the midline, and a smaller fluid collection along the lower pole of the left kidney suggest additional abscesses. 3. Tiny amount of fluid in the deep pelvis which may represent free fluid. 4. Mural thickening involving small bowel loops adjacent to the midline pelvic fluid collection probably due to inflammation, with evidence of associated partial small bowel obstruction. Objective Assessment S/p rigid proctoscopy, exploratory laparotomy, VANESSA, appendectomy 09/13 Diverticulitis Perf viscous -on Zosyn initially but changed to Meropenem 09/04 recurrent Abd abscess on CT 09/10- s/ p [address] 09/04 and then 09/11- Ecoli/ second Ecoli/Strep anginosis from 09/04 cults 09/11 B frag/Ecoli/Strep Leukocytosis - clinically stable Ileus Plan Plan of Care Cont Abx F/u labs and cults D/w father MIRIAM ORTEZ MD Sep 15, 2016 09:15
[2016-09-15 11:12] VITALS: BP 130/86
[2016-09-15] MEDS: FLUCONAZOLE 400MG/200ML PREMIX 200 ML IV SCH (11:51)
[2016-09-15] MEDS: HYDROMORPHONE STANDARD PCA 30 ML IV PRN (11:55)
--- NOTE | 2016-09-15 12:16 | PDOC ---
PROGRESS NOTES Chief Complaint Chief Complaint cc: abdominal pain A/P Acute abdominal pain 2/2 abdominal abscess, S/P drain placements 09/04, 09/11; s/ p rigid proctoscopy, exploratory laparotomy, VANESSA, appendectomy 09/13 Sepsis- 09/04 - Ecoli/Strep anginosis Perforated viscus Savere malnutrition, on DBA DEVELOPER for abdominal pain Recurrent abdominal abscess Dehydration Plan Pain control with Dilaudid DBA DEVELOPER Avoid co2 narcosis Abx per ID- Fluconazole and meropenem low dose Metoprolol, Tachycardia improved, intake and out put IV NS Follow culture, Surgical ID has been following ON TPN, Monitor electrolytes DVT prophylaxis- Lovenox Pregnosis- guarded, History of Present Illness History of Present Illness no flatus no fever no chills tachycardia Vitals Vitals Vital Signs Date Time Temp Pulse Resp B/P Pulse Ox O2 Delivery O2 Flow Rate FiO2 09/15/16 11:55 Room Air 09/15/16 11:50 105 130/86 09/15/16 11:12 98.1 16 96 98.1 Physical Exam General: Alert, Oriented X3, No acute distress Heart: Normal S1, Normal S2, No murmurs, Other (Sinus tach) Lungs: Clear Abdomen: Soft, Other (drains in place, no BS) Extremities: No cyanosis, No edema Skin: Other (abdominal drain in place) Labs LABS Laboratory Tests Test 09/15/16 05:55 Sodium Level 137mmol/L (136-145) Potassium Level 4.2mmol/L (3.5-5.1) Chloride Level 101mmol/L (98-107) Carbon Dioxide Level 30mmol/L (21-32) Anion Gap 6 (6-14) Blood Urea Nitrogen 11mg/dL (8-26) Creatinine 0.5mg/dL (0.7-1.3) Estimated GFR (Cockcroft-Gault) 214.2 Glucose Level 126mg/dL (70-99) Calcium Level 7.5mg/dL (8.5-10.1) Phosphorus Level 3.2mg/dL (2.6-4.7) Assessment and Plan Assessmemt and Plan Problems Medical Problems: (1) Abdominal abscess Status: Acute (2) Abdominal pain Status: Acute (3) Pneumoperitoneum Status: Acute Problems: Comment Review of Relevant I have reviewed the following items crystal (where applicable) has been applied. Labs Laboratory Tests Test 09/14/16 05:00 09/14/16 07:50 09/15/16 05:55 White Blood Count 21.7x10^3/uL (4.0-11.0) Red Blood Count 3.84x10^6/uL (4.30-5.70) Hemoglobin 11.5g/dL (13.0-17.5) Hematocrit 35.0% (39.0-53.0) Mean Corpuscular Volume 91fL (79-100) Mean Corpuscular Hemoglobin 30pg (25-35) Mean Corpuscular Hemoglobin Concent 33g/dL (31-37) Red Cell Distribution Width 12.7% (11.5-14.5) Platelet Count 319x10^3/uL (140-400) Neutrophils (%) (Auto) 94% (31-73) Lymphocytes (%) (Auto) 2% (24-48) Monocytes (%) (Auto) 3% (0-9) Eosinophils (%) (Auto) 0% (0-3) Basophils (%) (Auto) 1% (0-3) Neutrophils # (Auto) 20.4x10^3uL (1.8-7.7) Lymphocytes # (Auto) 0.5x10^3/uL (1.0-4.8) Monocytes # (Auto) 0.6x10^3/uL (0.0-1.1) Eosinophils # (Auto) 0.0x10^3/uL (0.0-0.7) Basophils # (Auto) 0.1x10^3/uL (0.0-0.2) Sodium Level 133mmol/L (136-145) 137mmol/L (136-145) Potassium Level 5.1mmol/L (3.5-5.1) 4.2mmol/L (3.5-5.1) Chloride Level 100mmol/L (98-107) 101mmol/L (98-107) Carbon Dioxide Level 27mmol/L (21-32) 30mmol/L (21-32) Anion Gap 6 (6-14) 6 (6-14) Blood Urea Nitrogen 9mg/dL (8-26) 11mg/dL (8-26) Creatinine 0.6mg/dL (0.7-1.3) 0.5mg/dL (0.7-1.3) Estimated GFR (Cockcroft-Gault) 173.6 214.2 Glucose Level 140mg/dL (70-99) 126mg/dL (70-99) Calcium Level 7.9mg/dL (8.5-10.1) 7.5mg/dL (8.5-10.1) Phosphorus Level 4.3mg/dL (2.6-4.7) 3.2mg/dL (2.6-4.7) Magnesium Level 1.8mg/dL (1.8-2.4) Laboratory Tests Test 09/15/16 05:55 Sodium Level 137mmol/L (136-145) Potassium Level 4.2mmol/L (3.5-5.1) Chloride Level 101mmol/L (98-107) Carbon Dioxide Level 30mmol/L (21-32) Anion Gap 6 (6-14) Blood Urea Nitrogen 11mg/dL (8-26) Creatinine 0.5mg/dL (0.7-1.3) Estimated GFR (Cockcroft-Gault) 214.2 Glucose Level 126mg/dL (70-99) Calcium Level 7.5mg/dL (8.5-10.1) Phosphorus Level 3.2mg/dL (2.6-4.7) Microbiology 08/30/16 Blood Culture - Final, Complete NO GROWTH AFTER 5 DAYS 09/11/16 Gram Stain - Final, Complete 08/30/16 Urine Culture - Final, Complete 08/30/16 Urine Culture Result 1 (TOAN) - Final, Complete 09/13/16 Gram Stain - Final, Complete Medications Current Medications Sodium Chloride (Iv Sodium Chloride 0.9% 1000ml Bag) 1,000 ml @ 1,000 mls/hr Q1H IV Last administered on 08/30/16 19:58; Start 08/30/16 at 19:45; Stop 07/06 at 20:44; Status DC Morphine Sulfate 4 mg 1X ONCE IV Last administered on 08/30/16t 19:58; Start 08/30/16 at 19:45; Stop 08/30/16 at 19:46; Status DC Ondansetron HCl (Zofran) 4 mg 1X ONCE IV Last administered on 08/30/16 19:57 ; Start 08/30/16 at 19:45; Stop 08/30/16 at 19:46; Status DC Iohexol (Omnipaque 300 Mg/ml) 75 ml 1X ONCE IV Last administered on 08/30/16 20:57; Start 08/30/16 at 20:00; Stop 08/30/16 at 20:01; Status DC Morphine Sulfate 4 mg 1X ONCE IV Last administered on 08/30/16 22:22; Start 08/30/16 at 21:45; Stop 08/30/16 at 21:46; Status DC Piperacillin Sod/ Tazobactam Sod 1 each 1 each PRN DAILY PRN MC SEE COMMENTS; Start 08/30/16 at 21:45; Stop 09/02/16 at 13:43; Status DC Piperacillin Sod/ Tazobactam Sod/ Sodium Chloride (Zosyn/Iv Sodium Chloride 0.9 % 50ml) 50 ml @ 100 mls/hr Q6HRS IV Last administered on 09/04/16 05:07; Start 08/30/16 at 22:00; Stop 09/04/16 at 10:30; Status DC Ondansetron HCl (Zofran) 4 mg PRN Q8HRS PRN IV NAUSEA/VOMITING; Start 08/30/16 at 22:30; Stop 08/31/16 at 22:29; Status DC Morphine Sulfate 4 mg 4 mg PRN Q2HR PRN IV PAIN Last administered on 08/30/16 23:16; Start 08/30/16 at 22:30; Stop 08/31/16 at 22:29; Status DC Sodium Chloride (Iv Sodium Chloride 0.9% 1000ml Bag) 1,000 ml @ 125 mls/hr Q8H IV Last administered on 08/31/16 09:13; Start 08/30/16 at 22:30; Stop at 13:05; Status DC Acetaminophen 650 mg 650 mg PRN Q4HRS PRN PO FEVER Last administered on 23:15; Start 08/30/16 at 22:30; Stop 08/31/16 at 22:29; Status DC Hydromorphone HCl 30 ml @ 0 mls/hr CONT PRN PRN IV PROTOCOL Last administered on 09/15/16 11:55; Start 08/30/16 at 23:30 Potassium Chloride/Dextrose/ Sod Cl 1,000 ml @ 100 mls/hr Q10H IV Last administered on 09/01/16 03:52; Start 08/31/16 at 13:15; Stop 09/01/16 at 14:37 ; Status DC Sodium Chloride 1,000 ml @ 1,000 mls/hr 1X ONCE IV Last administered on 14:24; Start 08/31/16 at 13:15; Stop 08/31/16 at 14:14; Status DC Albumin Human (Plasmanate) 500 ml @ 125 mls/hr 1X ONCE IV Last administered on 08/31/16 17:21; Start 08/31/16 at 17:00; Stop 08/31/16 at 20:59; Status DC Ondansetron HCl 4 mg 4 mg PRN Q6HRS PRN IV NAUSEA/VOMITING Last administered on 09/12/16 16:07; Start 08/31/16 at 22:45 Amino Acids/ Glycerin/ Electrolytes (Procalamine) 1,000 ml @ 100 mls/hr Q10H IV Last administered on 09/05/16 10:00; Start 09/01/16 at 14:45; Stop at 21:59; Status DC Acetaminophen (Tylenol) 650 mg PRN Q4HRS PRN IA MILD PAIN / TEMP Last administered on 09/13/16 06:14; Start 09/01/16 at 20:30 Lorazepam (Ativan) 1 mg PRN Q4HRS PRN IV ANXIETY / AGITATION Last administered on 09/13/16 20:24; Start 09/02/16 at 10:30 Saliva Substitute (Biotene Moisturizing Mouth) 2 spray PRN Q15MIN PRN PO DRY MOUTH Last administered on 09/02/16 18:13; Start 09/02/16 at 10:30 Iohexol (Omnipaque 240 Mg/ml) 30 ml 1X ONCE PO Last administered on 09/03/16 10:18; Start 09/03/16 at 09:00; Stop 09/03/16 at 09:01; Status DC Iohexol (Omnipaque 300 Mg/ml) 75 ml 1X ONCE IV Last administered on 09/03/16 10:18; Start 09/03/16 at 09:00; Stop 09/03/16 at 09:01; Status DC Info (Do NOT chart on this entry -- for MONITORING) 1 each PRN DAILY PRN MC SEE COMMENTS; Start 09/03/16 at 08:45; Stop 09/05/16 at 08:44; Status DC Info 1 each PRN DAILY PRN MC SEE COMMENTS Last administered on 09/14/16 14:03 ; Start 09/04/16 at 15:00 Midazolam HCl (Versed) 5 mg STK-MED ONCE .ROUTE ; Start 09/04/16 at 09:54; Stop 09/04/16 at 09:55; Status DC Fentanyl Citrate (Fentanyl 5ml Vial) 250 mcg STK-MED ONCE .ROUTE ; Start at 09:54; Stop 09/04/16 at 09:55; Status DC Lidocaine/Sodium Bicarbonate 20 ml 20 ml STK-MED ONCE IJ ; Start 09/04/16 at 09: 55; Stop 09/04/16 at 09:56; Status DC Meropenem 1 gm/ Sodium Chloride 100 ml @ 200 mls/hr Q8HRS IV Last administered on 09/15/16 05:39; Start 09/04/16 at 14:00 Fluconazole/ Sodium Chloride (Diflucan 400mg/ 200ml Premix) 200 ml @ 100 mls/ hr Q24H IV Last administered on 09/15/16 11:51; Start 09/04/16 at 11:00 Lidocaine/Sodium Bicarbonate (Buffered Lidocaine 1%) 3 ml 1X ONCE IJ Last administered on 09/04/16 10:49; Start 09/04/16 at 10:45; Stop 09/04/16 at 10:48 ; Status DC Midazolam HCl (Versed) 0.5 mg 1X ONCE IV Last administered on 09/04/16 10:50 ; Start 09/04/16 at 10:45; Stop 09/04/16 at 10:48; Status DC Fentanyl Citrate 100 mcg 100 mcg 1X ONCE IV Last administered on 09/04/16 10: 50; Start 09/04/16 at 10:45; Stop 09/04/16 at 10:48; Status DC Sodium Chloride 90 meq/Potassium Chloride 50 meq/ Potassium Phosphate 13.6 mmol/ Magnesium Sulfate 10 meq/ Calcium Gluconate 10 meq/ Multivitamins/ Minerals 10 ml/ Chromium/Copper/ Manganese/Seleni/ Zn 1 ml/Total Parenteral Nutrition/Amino Acids/Dextrose/ Fat Emulsion Intravenous 1,512 ml @ 63 mls/hr TPN CONT IV Last administered on 09/05/16 20:50; Start 09/05/16 at 22:00; Stop 09/06/16 at 21:59; Status DC Levofloxacin/ Dextrose 150 ml @ 100 mls/hr 1X ONCE IV Last administered on 09:00; Start 09/06/16 at 09:00; Stop 09/06/16 at 10:29; Status DC Sodium Chloride/ Potassium Chloride/ Potassium Phosphate/ Magnesium Sulfate/ Calcium Gluconate/ Multivitamins/ Minerals/Chromium/ Copper/Manganese/ Seleni/Zn /Total Parenteral Nutrition/Amino Acids/Dextrose/ Fat Emulsion Intravenous ( Sodium Chloride/ Potassium Phospha... 1,512 ml @ 63 mls/hr TPN CONT IV Last administered on 09/06/16 21:49; Start 09/06/16 at 22:00; Stop 09/07/16 at 21:59 ; Status DC Alteplase, Recombinant (Cathflo) 2 mg 1X ONCE INT CAT Last administered on 20:43; Start 09/07/16 at 10:00; Stop 09/07/16 at 10:01; Status DC Vancomycin HCl (Vanco Per Pharmacy) 1 each PRN DAILY PRN MC SEE COMMENTS Last administered on 09/08/16 16:02; Start 09/07/16 at 10:30; Stop 09/11/16 at 10:23 ; Status DC Gentamicin Sulfate 1 each 1 each PRN DAILY PRN MC SEE COMMENTS; Start 09/07/16 at 10:15; Stop 09/07/16 at 13:00; Status DC Vancomycin HCl 2 gm/Sodium Chloride 500 ml @ 250 mls/hr 1X ONCE IV Last administered on 09/07/16 14:58; Start 09/07/16 at 11:00; Stop 09/07/16 at 12:59 ; Status DC Gentamicin Sulfate 500 mg/ Sodium Chloride 112.5 ml @ 112.5 mls/ hr 1X ONCE IV Last administered on 09/07/16 12:52; Start 09/07/16 at 11:00; Stop at 11:59; Status DC Sodium Chloride 90 meq/Potassium Chloride 50 meq/ Potassium Phosphate 13.6 mmol/ Magnesium Sulfate 10 meq/ Calcium Gluconate 10 meq/ Multivitamins/ Minerals 10 ml/ Chromium/Copper/ Manganese/Seleni/ Zn 1 ml/Total Parenteral Nutrition/Amino Acids/Dextrose/ Fat Emulsion Intravenous 1,512 ml @ 63 mls/hr TPN CONT IV Last administered on 09/07/16 21:41; Start 09/07/16 at 22:00; Stop 09/08/16 at 21:59; Status DC Vancomycin HCl/ Sodium Chloride (Iv Sodium Chloride 0.9% 250ml) 250 ml @ 167 mls/hr Q8H IV Last administered on 09/08/16 05:39; Start 09/07/16 at 23:00; Stop 09/08/16 at 15:54; Status DC Vancomycin HCl 1 each 1 each 1X ONCE MC Last administered on 09/08/16 14:30; Start 09/08/16 at 14:30; Stop 09/08/16 at 14:31; Status DC Sodium Chloride/ Potassium Chloride/ Potassium Phosphate/ Magnesium Sulfate/ Calcium Gluconate/ Multivitamins/ Minerals/Chromium/ Copper/Manganese/ Seleni/Zn /Total Parenteral Nutrition/Amino Acids/Dextrose/ Fat Emulsion Intravenous ( Sodium Chloride/ Potassium Phospha... 1,512 ml @ 63 mls/hr TPN CONT IV Last administered on 09/08/16 22:23; Start 09/08/16 at 22:00; Stop 09/09/16 at 21:59 ; Status DC Pantoprazole Sodium 40 mg 40 mg DAILYAC IVP Last administered on 09/15/16 09: 11; Start 09/08/16 at 15:00 Vancomycin HCl 1.25 gm/Sodium Chloride 250 ml @ 167 mls/hr Q6HRS IV Last administered on 09/11/16 06:14; Start 09/08/16 at 17:00; Stop 09/11/16 at 10:23 ; Status DC Sodium Chloride 120 meq/Potassium Chloride 50 meq/ Potassium Phosphate 13.6 mmol /Magnesium Sulfate 10 meq/ Calcium Gluconate 10 meq/ Multivitamins/ Minerals 10 ml/ Chromium/Copper/ Manganese/Seleni/ Zn 1 ml/Total Parenteral Nutrition/Amino Acids/Dextrose/ Fat Emulsion Intravenous 1,512 ml @ 63 mls/hr TPN CONT IV Last administered on 09/09/16 22:37; Start 09/09/16 at 22:00; Stop 09/10/16 at 21:59; Status DC Sodium Chloride/ Potassium Chloride/ Potassium Phosphate/ Magnesium Sulfate/ Calcium Gluconate/ Multivitamins/ Minerals/Chromium/ Copper/Manganese/ Seleni/Zn /Total Parenteral Nutrition/Amino Acids/Dextrose/ Fat Emulsion Intravenous ( Sodium Chloride/ Potassium Phospha... 1,512 ml @ 63 mls/hr TPN CONT IV Last administered on 09/10/16 21:57; Start 09/10/16 at 22:00; Stop 09/11/16 at 21:59 ; Status DC Iohexol (Omnipaque 240 Mg/ml) 30 ml 1X ONCE PO Last administered on 09/10/16 14:15; Start 09/10/16 at 14:15; Stop 09/10/16 at 14:21; Status DC Iohexol (Omnipaque 300 Mg/ml) 75 ml 1X ONCE IV Last administered on 09/10/16 15:41; Start 09/10/16 at 14:15; Stop 09/10/16 at 14:21; Status DC Info (Do NOT chart on this entry -- for MONITORING) 1 each PRN DAILY PRN MC SEE COMMENTS; Start 09/10/16 at 14:30; Stop 09/12/16 at 14:29; Status DC Lidocaine/Sodium Bicarbonate (Buffered Lidocaine 1%) 20 ml STK-MED ONCE IJ ; Start 09/11/16 at 13:02; Stop 09/11/16 at 13:03; Status DC Fentanyl Citrate (Fentanyl 2ml Vial) 100 mcg STK-MED ONCE .ROUTE ; Start at 13:20; Stop 09/11/16 at 13:21; Status DC Midazolam HCl 5 mg 5 mg STK-MED ONCE .ROUTE ; Start 09/11/16 at 13:20; Stop at 13:21; Status DC Sodium Chloride/ Potassium Chloride/ Potassium Phosphate/ Magnesium Sulfate/ Calcium Gluconate/ Multivitamins/ Minerals/Chromium/ Copper/Manganese/ Seleni/Zn /Total Parenteral Nutrition/Amino Acids/Dextrose/ Fat Emulsion Intravenous ( Sodium Chloride/ Potassium Phospha... 1,512 ml @ 63 mls/hr TPN CONT IV Last administered on 09/11/16 21:06; Start 09/11/16 at 22:00; Stop 09/12/16 at 21:59 ; Status DC Lidocaine/Sodium Bicarbonate (Buffered Lidocaine 1%) 20 ml 1X ONCE IJ Last administered on 09/11/16 14:00; Start 09/11/16 at 14:00; Stop 09/11/16 at 14:01 ; Status DC Midazolam HCl (Versed) 5 mg 1X ONCE IV Last administered on 09/11/16 14:00; Start 09/11/16 at 14:00; Stop 09/11/16 at 14:01; Status DC Fentanyl Citrate (Fentanyl 2ml Vial) 100 mcg 1X ONCE IV Last administered on 14:00; Start 09/11/16 at 14:00; Stop 09/11/16 at 14:01; Status DC Metoprolol Tartrate 5 mg 5 mg Q6HRS IVP Last administered on 09/15/16 11:50; Start 09/11/16 at 22:00 Dextrose/Sodium Chloride (Iv D5% - NS) 1,000 ml @ 125 mls/hr 1X ONCE IV Last administered on 09/12/16 10:29; Start 09/12/16 at 10:30; Stop 09/12/16 at 18:29 ; Status DC Enoxaparin Sodium 40 mg 40 mg Q24H SQ Last administered on 09/14/16 14:23; Start 09/12/16 at 13:00 Sodium Chloride 1,000 ml @ 75 mls/hr 1X ONCE IV Last administered on 21:27; Start 09/12/16 at 12:00; Stop 09/13/16 at 01:19; Status DC Sodium Chloride/ Potassium Chloride/ Potassium Phosphate/ Magnesium Sulfate/ Calcium Gluconate/ Multivitamins/ Minerals/Chromium/ Copper/Manganese/ Seleni/Zn /Total Parenteral Nutrition/Amino Acids/Dextrose/ Fat Emulsion Intravenous ( Sodium Chloride/ Potassium Phospha... 1,512 ml @ 63 mls/hr TPN CONT IV Last administered on 09/12/16 19:52; Start 09/12/16 at 22:00; Stop 09/13/16 at 21:59 ; Status DC Desflurane (Suprane) 90 ml STK-MED ONCE IH ; Start 09/13/16 at 13:23; Stop 09/13 at 13:24; Status DC Fentanyl Citrate (Fentanyl 2ml Vial) 100 mcg STK-MED ONCE .ROUTE ; Start at 13:23; Stop 09/13/16 at 13:24; Status DC Midazolam HCl (Versed) 2 mg STK-MED ONCE .ROUTE ; Start 09/13/16 at 13:23; Stop 09/13/16 at 13:24; Status DC Glycopyrrolate (Robinul) 1 mg STK-MED ONCE .ROUTE ; Start 09/13/16 at 13:23; Stop 09/13/16 at 13:24; Status DC Neostigmine Methylsulfate 5 mg 5 mg STK-MED ONCE .ROUTE ; Start 09/13/16 at 13: 23; Stop 09/13/16 at 13:24; Status DC Propofol (Diprivan) 20 ml @ As Directed STK-MED ONCE IV ; Start 09/13/16 at 13: 24; Stop 09/13/16 at 13:25; Status DC Dexamethasone Sodium Phosphate (Decadron) 20 mg STK-MED ONCE .ROUTE ; Start at 13:24; Stop 09/13/16 at 13:25; Status DC Ketorolac Tromethamine (Toradol For Or Only) 30 mg STK-MED ONCE INJ ; Start at 13:24; Stop 09/13/16 at 13:25; Status DC Ondansetron HCl (Zofran) 4 mg STK-MED ONCE .ROUTE ; Start 09/13/16 at 13:24; Stop 09/13/16 at 13:25; Status DC Lidocaine HCl 100 mg STK-MED ONCE .ROUTE ; Start 09/13/16 at 13:24; Stop at 13:25; Status DC Succinylcholine Chloride (Anectine) 200 mg STK-MED ONCE .ROUTE ; Start 09/13/16 at 13:25; Stop 09/13/16 at 13:26; Status DC Rocuronium [place] 50 mg 50 mg STK-MED ONCE .ROUTE ; Start 09/13/16 at 13:25; Stop 09/13/16 at 13:26; Status DC Sodium Chloride/ Potassium Chloride/ Potassium Phosphate/ Magnesium Sulfate/ Calcium Gluconate/ Multivitamins/ Minerals/Chromium/ Copper/Manganese/ Seleni/Zn /Total Parenteral Nutrition/Amino Acids/Dextrose/ Fat Emulsion Intravenous ( Sodium Chloride/ Potassium Phospha... 1,512 ml @ 63 mls/hr TPN CONT IV Last administered on 09/13/16 19:36; Start 09/13/16 at 22:00; Stop 09/14/16 at 21:59 ; Status DC Morphine Sulfate 1 mg 1 mg PRN Q10MIN PRN IV SEVERE PAIN; Start 09/13/16 at 15: 15; Stop 09/14/16 at 15:14; Status DC Lactated Ringer's (Iv Lactated Ringers) 1,000 ml @ 0 mls/hr Q0M IV ; Start at 15:11; Stop 09/14/16 at 03:10; Status DC Lidocaine HCl 2 ml 1X PRN PRN ID IV START; Start 09/13/16 at 15:15; Stop at 15:14; Status DC Hydromorphone HCl (Dilaudid) 0.5 mg PRN Q10MIN PRN IV SEV PAIN,Second choice Last administered on 09/13/16 19:02; Start 09/13/16 at 15:15; Stop 09/14/16 at 15:14; Status DC Prochlorperazine Edisylate (Compazine) 5 mg PACU PRN PRN IV NAUSEA; Start 09/13 at 15:15; Stop 09/14/16 at 15:14; Status DC Rocuronium [place] (Zemuron) 50 mg STK-MED ONCE .ROUTE ; Start 09/13/16 at 15:43 ; Stop 09/13/16 at 15:44; Status DC Fentanyl Citrate (Fentanyl 2ml Vial) 100 mcg STK-MED ONCE .ROUTE ; Start at 17:27; Stop 09/13/16 at 17:28; Status DC Sevoflurane (Ultane) 90 ml STK-MED ONCE IH ; Start 09/13/16 at 17:47; Stop 09/13 at 17:48; Status DC Diphenhydramine HCl (Benadryl) 25 mg PRN Q6HRS PRN PO ITCHING; Start 09/13/16 at 18:00 Diphenhydramine HCl (Benadryl) 25 mg PRN Q6HRS PRN IV ITCHING; Start 09/13/16 at 18:00 Enoxaparin Sodium (Lovenox 40mg Syringe) 40 mg Q24H SQ ; Start 09/13/16 at 18:00 ; Status UNV Sodium Chloride 3 ml 3 ml QSHIFT PRN IV AFTER MEDS AND BLOOD DRAWS; Start 09/13 at 18:00 Hydromorphone HCl (Dilaudid Standard DBA DEVELOPER) 30 ml @ 0 mls/hr CONT PRN PRN IV PROTOCOL; Start 09/13/16 at 18:00; Stop 09/14/16 at 12:34; Status DC Ondansetron HCl (Zofran) 4 mg PRN Q6HRS PRN IV NAUESA, 1ST CHOICE; Start at 18:00; Status UNV Throat Lozenges (Chloraseptic) 1 spray PRN Q2HR PRN PO SORE THROAT Last administered on 09/14/16 11:39; Start 09/13/16 at 18:30 Throat Lozenges 1 nabila 1 nabila PRN Q2HRS PRN PO SORE THROAT Last administered on 14:26; Start 09/13/16 at 18:30 Sodium Chloride/ Potassium Chloride/ Potassium Phosphate/ Magnesium Sulfate/ Calcium Gluconate/ Multivitamins/ Minerals/Chromium/ Copper/Manganese/ Seleni/Zn /Total Parenteral Nutrition/Amino Acids/Dextrose/ Fat Emulsion Intravenous ( Sodium Chloride/ Potassium Phospha... 1,512 ml @ 63 mls/hr TPN CONT IV Last administered on 09/14/16 21:36; Start 09/14/16 at 22:00; Stop 09/15/16 at 21:59 Vitals/I & O Vital Sign - Last 24 Hours 09/14/16 09/14/16 09/14/16 09/14/16 14:23 15:16 18:47 19:00 Temp 98.3 98.3 98.3 98.3 Pulse 134 132 123 123 Resp 18 18 B/P 130/88 130/88 130/89 130/89 Pulse Ox 97 96 O2 Delivery Room Air 09/14/16 09/14/16 09/15/16 09/15/16 21:38 23:00 00:31 03:00 Temp 98.0 99.1 98.0 99.1 Pulse 115 115 102 Resp 18 16 B/P 126/88 126/88 121/82 Pulse Ox 95 97 O2 Delivery Room Air 09/15/16 09/15/16 09/15/16 09/15/16 05:39 07:00 08:00 11:12 Temp 98.4 98.1 98.4 98.1 Pulse 96 77 105 Resp 18 16 B/P 114/72 122/79 130/86 Pulse Ox 98 96 O2 Delivery Room Air Room Air Room Air 09/15/16 09/15/16 11:50 11:55 Pulse 105 B/P 130/86 O2 Delivery Room Air Intake and Output 09/14/16 09/14/16 09/15/16 15:00 23:00 07:00 Intake Total 300 ml 0 ml 1971.0 ml Output Total 210 ml 475 ml 425 ml Balance 90 ml -475 ml 1546.0 ml YUN AHN MD Sep 15, 2016 12:16
[2016-09-15] MEDS: TPN PER PHARMACY MC PRN (13:50)
[2016-09-15] MEDS: ENOXAPARIN 40 MG/0.4 ML DISP.SYRIN. SQ SCH (14:07)
--- NOTE | 2016-09-15 14:16 | PDOC ---
SURGICAL PROGRESS NOTE Subjective up to chair! adequate pain control Vital Signs Vital Signs Date Time Temp Pulse Resp B/P Pulse Ox O2 Delivery O2 Flow Rate FiO2 09/15/16 12:30 Room Air 09/15/16 11:50 105 130/86 09/15/16 11:12 98.1 16 96 98.1 pulse rate improved I&O Intake and Output 09/15/16 07:00 Intake Total 2271.0 ml Output Total 1110 ml Balance 1161.0 ml Intake Oral 0 ml IV Total 2271.0 ml Output Urine Total 1050 ml Drainage Total 60 ml PATIENT HAS A BAKER: No General: Alert, Oriented X3, Cooperative, No acute distress Abdomen: Soft Labs Laboratory Tests Test 09/14/16 05:00 09/14/16 07:50 09/15/16 05:55 White Blood Count 21.7x10^3/uL (4.0-11.0) Red Blood Count 3.84x10^6/uL (4.30-5.70) Hemoglobin 11.5g/dL (13.0-17.5) Hematocrit 35.0% (39.0-53.0) Mean Corpuscular Volume 91fL (79-100) Mean Corpuscular Hemoglobin 30pg (25-35) Mean Corpuscular Hemoglobin Concent 33g/dL (31-37) Red Cell Distribution Width 12.7% (11.5-14.5) Platelet Count 319x10^3/uL (140-400) Neutrophils (%) (Auto) 94% (31-73) Lymphocytes (%) (Auto) 2% (24-48) Monocytes (%) (Auto) 3% (0-9) Eosinophils (%) (Auto) 0% (0-3) Basophils (%) (Auto) 1% (0-3) Neutrophils # (Auto) 20.4x10^3uL (1.8-7.7) Lymphocytes # (Auto) 0.5x10^3/uL (1.0-4.8) Monocytes # (Auto) 0.6x10^3/uL (0.0-1.1) Eosinophils # (Auto) 0.0x10^3/uL (0.0-0.7) Basophils # (Auto) 0.1x10^3/uL (0.0-0.2) Sodium Level 133mmol/L (136-145) 137mmol/L (136-145) Potassium Level 5.1mmol/L (3.5-5.1) 4.2mmol/L (3.5-5.1) Chloride Level 100mmol/L (98-107) 101mmol/L (98-107) Carbon Dioxide Level 27mmol/L (21-32) 30mmol/L (21-32) Anion Gap 6 (6-14) 6 (6-14) Blood Urea Nitrogen 9mg/dL (8-26) 11mg/dL (8-26) Creatinine 0.6mg/dL (0.7-1.3) 0.5mg/dL (0.7-1.3) Estimated GFR (Cockcroft-Gault) 173.6 214.2 Glucose Level 140mg/dL (70-99) 126mg/dL (70-99) Calcium Level 7.9mg/dL (8.5-10.1) 7.5mg/dL (8.5-10.1) Phosphorus Level 4.3mg/dL (2.6-4.7) 3.2mg/dL (2.6-4.7) Magnesium Level 1.8mg/dL (1.8-2.4) Laboratory Tests Test 09/15/16 05:55 Sodium Level 137mmol/L (136-145) Potassium Level 4.2mmol/L (3.5-5.1) Chloride Level 101mmol/L (98-107) Carbon Dioxide Level 30mmol/L (21-32) Anion Gap 6 (6-14) Blood Urea Nitrogen 11mg/dL (8-26) Creatinine 0.5mg/dL (0.7-1.3) Estimated GFR (Cockcroft-Gault) 214.2 Glucose Level 126mg/dL (70-99) Calcium Level 7.5mg/dL (8.5-10.1) Phosphorus Level 3.2mg/dL (2.6-4.7) Problem List Problems Medical Problems: (1) Abdominal abscess Status: Acute (2) Abdominal pain Status: Acute (3) Pneumoperitoneum Status: Acute Assessment/Plan POD 2 ex lap NG trial in AM Problems: RODRIGUE LÓPEZ MD Sep 15, 2016 14:16
[2016-09-15 14:51] VITALS: BP 117/77
--- NOTE | 2016-09-15 16:30 | PATHOLOGY ---
PATHOLOGY REPORT * * * * * * * * FINAL DIAGNOSIS: Appendix, appendectomy: - Serosal fibrosis and acute inflammatory exudate. COMMENT: The appendiceal mucosa appears intact and shows no evidence of ulceration or acute inflammation. There is prominent serosal acute inflammation and hemorrhage. The inflammatory process appears to be external to the appendix. (JPM:all; d/t: 09/15/2016) REPORT ELECTRONICALLY SIGNED BY: Conor Young M.D. DATE/TIME: 09/15/2016 16:29 * * * * * * * * GROSS PATHOLOGY: Received in formalin labeled "sammi Meza," is an appendix measuring 7.6 cm in length and 1.0 cm in diameter with a moderate amount of attached mesoappendix. The serosal surface is pink-vivas to dusky vivas-santana brown. Sectioning reveals A dilated lumen filled with clear mucoid material. Site Safety Representative sections are submitted in cassette A1. (CAA; 09/14/2016) INITIAL CPT CODE(S): A; 25499 Professional services performed by [facility] [place] [address] Technical services performed by [facility] at [address] [place] [address]. SPECIMEN(S) RECEIVED: A.Appendix CLINICAL HISTORY: Abdominal pain, pneumoperitoneum PATIENT: YINA KEENE /AGE: 3 1995 (Age: 20) PATIENT #: [id number] ALT CASE #: SPECIMEN COLLECTION DATE: 09/13/2016 SPECIMEN RECEIVED DATE: 09/14/2016 [facility] - [address] [place] [address] - PHONE: [phone] * * * END OF REPORT * * *
--- NOTE | 2016-09-15 18:58 | OP ---
DATE OF SURGERY: 09/13/2016 PREOPERATIVE DIAGNOSIS: Abdominal abscess secondary to perforated viscus. POSTOPERATIVE DIAGNOSIS: Abdominal abscess. PROCEDURES: 1. Rigid proctoscopy. 2. Exploratory laparotomy. 3. Lysis of adhesions. 4. Appendectomy. SURGEON: Dr. López. CAREER TECHNICAL SUPERVISOR: Charlene Sen MD and ROSEMARIE Lee. ANESTHESIA: General endotracheal. ESTIMATED BLOOD LOSS: 450. INTRAVENOUS FLUID: 2300. URINE OUTPUT: 175. INDICATIONS: The patient is a 20-year-old who has been managed nonoperatively for approximately 2 weeks after he presented with some bulbs of free air and large abdominal abscess he thought to originate from the sigmoid colon. He had two percutaneous drains placed with some resolution of those initial abscesses; however, he continued to have tachycardiac, elevated white count, and fevers. Two more drains were placed again with good results; however, he did not improve and as such he was brought for exploration. We discussed potential out comes preoperatively including risks of bleeding, infection, need for temporary stomas for diversion of stool. He understands and will proceed. OPERATIVE FINDINGS: The liver was smooth and sharp. The gallbladder was supple. The stomach was unremarkable with an NG tube in place, which had been placed by anesthesia after induction. The small bowel had multiple dense adhesions with serosal edema, but was all viable and without evidence of perforation. There was a large abscess in the mid abdomen encased by the mid small bowel. The appendix was edematous and inflamed most likely secondary to the ongoing process as opposed to our primary source. The colon was nondilated, appeared viable, and was without demonstrable perforation intraoperatively, was submerged under saline and insufflated from below. DESCRIPTION OF PROCEDURE: The patient was brought to the operating suite, given a general endotracheal anesthetic. Gan catheter was placed for the drainage and the abdomen was prepped and draped in usual sterile fashion. A midline incision was made, the abdomen carefully entered, explored with results as noted above. With the Omni self-retaining retractor for exposure, we set about mobilizing the small bowel. This resulted in some serosal seeding; however, no enterotomies were created. A small area in the mid abdomen showed through and through penetration of one of the drains. This was repaired with chromic sutures in a running lock fashion followed by imbrication with 3-0 Vicryl. Minimal spillage was encountered. Once we had completely mobilized the small bowel, the appendix was removed by serially clamping, dividing and ligating the mesoappendix with ties. Base of the appendix was amputated with an Endo-CALLIE stapler. Good hemostasis was present and the stump appeared to be intact. We then submerged the entire left and descending colon after occluding it at the splenic flexure with an atraumatic clamp. The rigid scope was introduced transiently and the colon was insufflated. It was distended nicely and careful inspection failed to reveal any evidence of leak from the colon. In light of this, the colon was decompressed, the scope removed. Prior to inspecting the colon for a leak, the small bowel was decompressed by placing a pursestring suture on the distal ileum creating a small enterotomy to allow passage of an NG tube proximally and proximally a liter of succus and air were decompressed from the small bowel. The pursestring suture was closed and the area imbricated. We then copiously irrigated all four quadrants of the abdomen, evacuated and checked for adequate hemostasis. When present and first sponge count was correct and Christian 1 cm sump drain was placed and the left pericolic gutter brought out a left lower quadrant stab wound, secured with silk suture. A 20-Hungarian round Jamil was brought through a right lower quadrant stab wound, left in the true pelvis. A second sponge count was correct and the abdomen was then closed in running fashion using looped 0 PDS tied in the middle. Subq was irrigated with saline and checked for hemostasis. When present, the skin was closed loosely and the subcutaneous space drained with Telfa pato. Sterile dressing applied. Postop foreign body film was negative for unexplained foreign body. The patient was taken out of the lithotomy, awakened from his anesthetic and taken to the recovery room in satisfactory condition. RODRIGUE LÓPEZ MD DR: ELDER/rosalba JOB#: [id number] / [id number]
[2016-09-15 19:59] VITALS: BP 123/86
[2016-09-15] MEDS ORDERED: DEXTROSE 70% IV SCH ×10 (22:00)
[2016-09-15] MEDS ORDERED: TOTAL PARENTERAL NUTRITION IV SCH ×10 (22:00)
[2016-09-15] MEDS ORDERED: AMINO ACIDS IV SCH ×10 (22:00)
[2016-09-15] MEDS ORDERED: [UNRECOGNIZED DRUG - OTHER] IV SCH ×10 (22:00)
[2016-09-15 23:59] VITALS: BP 116/90
[2016-09-16 03:59] VITALS: BP 132/89
[2016-09-16] MEDS: METOPROLOL TARTRATE 5 MG/5 ML VIAL. IVP SCH ×4 (05:25→23:52)
[2016-09-16] MEDS: MEROPENEM 1 GM in IV NORMAL SALINE 100ML 100 ML IV SCH ×3 (05:26→21:36)
[2016-09-16 07:00] VITALS: BP 129/84
[2016-09-16 08:14] LABS: BASO % 0 % (0-3); EOS % 0 % (0-3); HEMATOCRIT 29.9 % (39.0-53.0); HEMOGLOBIN 9.9 g/dL (13.0-17.5); LYMPH # 1.6 x10^3/uL (1.0-4.8); LYMPH % 12 % (24-48); MEAN CORPUSCULAR HEMOGLOBIN 30 pg (25-35); MEAN CORPUSCULAR HGB CONC 33 g/dL (31-37); MEAN CORPUSCULAR VOLUME 89 fL (79-100); MONO % 6 % (0-9); NEUT % 82 % (31-73); PLATELET COUNT 285 x10^3/uL (140-400); RED BLOOD COUNT 3.36 x10^6/uL (4.30-5.70); WHITE BLOOD COUNT 12.9 x10^3/uL (4.0-11.0)
[2016-09-16] MEDS: PANTOPRAZOLE IV PUSH 40 MG VIAL. IVP SCH (08:38)
--- NOTE | 2016-09-16 10:55 | PDOC ---
Infectious Disease Note Subjective Subjective Fever. 101.1. No chills Feeling alright Pain controlled. 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 No lesions. NGT NECK: Supple LUNGS: Clear HEART: S1S2, no gallop, no murmur ABD: Distended, soft, mild tender to palpation. Incision bandaged, dry. Drains intact. EXT: No edema, no cyanosis BIOTECHNICIAN: Alert, oriented x 3, no focal neurologic deficit SKIN: No rash RUE-PICC. clean Labs Lab Laboratory Tests Test 09/16/16 06:52 White Blood Count 12.9x10^3/uL (4.0-11.0) Red Blood Count 3.36x10^6/uL (4.30-5.70) Hemoglobin 9.9g/dL (13.0-17.5) Hematocrit 29.9% (39.0-53.0) Mean Corpuscular Volume 89fL (79-100) Mean Corpuscular Hemoglobin 30pg (25-35) Mean Corpuscular Hemoglobin Concent 33g/dL (31-37) Red Cell Distribution Width 13.0% (11.5-14.5) Platelet Count 285x10^3/uL (140-400) Neutrophils (%) (Auto) 82% (31-73) Lymphocytes (%) (Auto) 12% (24-48) Monocytes (%) (Auto) 6% (0-9) Eosinophils (%) (Auto) 0% (0-3) Basophils (%) (Auto) 0% (0-3) Neutrophils # (Auto) 10.5x10^3uL (1.8-7.7) Lymphocytes # (Auto) 1.6x10^3/uL (1.0-4.8) Monocytes # (Auto) 0.7x10^3/uL (0.0-1.1) Eosinophils # (Auto) 0.1x10^3/uL (0.0-0.7) Basophils # (Auto) 0.0x10^3/uL (0.0-0.2) Micro 09/13. abdomen abscess ANAEROBIC-AEROBIC CULTURE PENDING ANAEROBIC RES 1 PENDING AEROBIC CULT Preliminary Preliminary report AEROBIC RES 1 Preliminary Mixed skin pat Scant growth AEROBIC RES 2 Preliminary Gram negative rods Objective Assessment Fever Leukocytosis. better Diverticulitis Perforated viscous -on Zosyn initially but changed to Meropenem 09/04 -s/p Exp lap, VANESSA, appendectomy, right proctoscopy and drain, 09/13. GNR Intra-abdominal abscesses - s/p [address] 09/04 - E. coli x 2 spp, Strep anginosis & bacteroides. Plan Plan of Care Meropenem and fluconazole F/u labs and cults Monitor temp Attending Co-Sign The patient was seen and interviewed as well as examined at the bedside. The chart was reviewed. The case was discussed. Agree with the plan of care. JOHAN MEYER APRN Sep 16, 2016 10:55 [place] JACOBSON MD Sep 16, 2016 16:15
[2016-09-16 11:00] VITALS: BP 133/86
[2016-09-16] MEDS: TPN PER PHARMACY MC PRN (11:06)
[2016-09-16] MEDS: FLUCONAZOLE 400MG/200ML PREMIX 200 ML IV SCH (11:31)
--- NOTE | 2016-09-16 12:34 | PDOC ---
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 Recurrent abdominal abscess Dehydration Plan Pain control with Dilaudid [employer] INSPECTOR Avoid co2 narcosis Abx per ID- Fluconazole and meropenem low dose Metoprolol, Tachycardia improved, intake and out put IV NS Follow culture, Surgical ID has been following ON TPN, Monitor electrolytes DVT prophylaxis- Lovenox Pregnosis- guarded, History of Present Illness History of Present Illness no flatus no fever no chills tachycardia Vitals Vitals Vital Signs Date Time Temp Pulse Resp B/P Pulse Ox O2 Delivery O2 Flow Rate FiO2 09/16/16 11:33 101 133/86 09/16/16 11:00 99.5 22 96 Room Air 99.5 Physical Exam General: Alert, Oriented X3, Cooperative, No acute distress Heart: Normal S1, Normal S2, No murmurs, Other (Sinus tach) Lungs: Clear Abdomen: Soft, Other (drais present) Extremities: No cyanosis, No edema Skin: Other (abdominal drain in place) Labs LABS Laboratory Tests Test 09/16/16 06:52 White Blood Count 12.9x10^3/uL (4.0-11.0) Red Blood Count 3.36x10^6/uL (4.30-5.70) Hemoglobin 9.9g/dL (13.0-17.5) Hematocrit 29.9% (39.0-53.0) Mean Corpuscular Volume 89fL (79-100) Mean Corpuscular Hemoglobin 30pg (25-35) Mean Corpuscular Hemoglobin Concent 33g/dL (31-37) Red Cell Distribution Width 13.0% (11.5-14.5) Platelet Count 285x10^3/uL (140-400) Neutrophils (%) (Auto) 82% (31-73) Lymphocytes (%) (Auto) 12% (24-48) Monocytes (%) (Auto) 6% (0-9) Eosinophils (%) (Auto) 0% (0-3) Basophils (%) (Auto) 0% (0-3) Neutrophils # (Auto) 10.5x10^3uL (1.8-7.7) Lymphocytes # (Auto) 1.6x10^3/uL (1.0-4.8) Monocytes # (Auto) 0.7x10^3/uL (0.0-1.1) Eosinophils # (Auto) 0.1x10^3/uL (0.0-0.7) Basophils # (Auto) 0.0x10^3/uL (0.0-0.2) Assessment and Plan Assessmemt and Plan Problems Medical Problems: (1) Abdominal abscess Status: Acute (2) Abdominal pain Status: Acute (3) Pneumoperitoneum Status: Acute Problems: Comment Review of Relevant I have reviewed the following items crystal (where applicable) has been applied. Labs Laboratory Tests Test 09/15/16 05:55 09/16/16 06:52 Sodium Level 137mmol/L (136-145) Potassium Level 4.2mmol/L (3.5-5.1) Chloride Level 101mmol/L (98-107) Carbon Dioxide Level 30mmol/L (21-32) Anion Gap 6 (6-14) Blood Urea Nitrogen 11mg/dL (8-26) Creatinine 0.5mg/dL (0.7-1.3) Estimated GFR (Cockcroft-Gault) 214.2 Glucose Level 126mg/dL (70-99) Calcium Level 7.5mg/dL (8.5-10.1) Phosphorus Level 3.2mg/dL (2.6-4.7) White Blood Count 12.9x10^3/uL (4.0-11.0) Red Blood Count 3.36x10^6/uL (4.30-5.70) Hemoglobin 9.9g/dL (13.0-17.5) Hematocrit 29.9% (39.0-53.0) Mean Corpuscular Volume 89fL (79-100) Mean Corpuscular Hemoglobin 30pg (25-35) Mean Corpuscular Hemoglobin Concent 33g/dL (31-37) Red Cell Distribution Width 13.0% (11.5-14.5) Platelet Count 285x10^3/uL (140-400) Neutrophils (%) (Auto) 82% (31-73) Lymphocytes (%) (Auto) 12% (24-48) Monocytes (%) (Auto) 6% (0-9) Eosinophils (%) (Auto) 0% (0-3) Basophils (%) (Auto) 0% (0-3) Neutrophils # (Auto) 10.5x10^3uL (1.8-7.7) Lymphocytes # (Auto) 1.6x10^3/uL (1.0-4.8) Monocytes # (Auto) 0.7x10^3/uL (0.0-1.1) Eosinophils # (Auto) 0.1x10^3/uL (0.0-0.7) Basophils # (Auto) 0.0x10^3/uL (0.0-0.2) Laboratory Tests Test 09/16/16 06:52 White Blood Count 12.9x10^3/uL (4.0-11.0) Red Blood Count 3.36x10^6/uL (4.30-5.70) Hemoglobin 9.9g/dL (13.0-17.5) Hematocrit 29.9% (39.0-53.0) Mean Corpuscular Volume 89fL (79-100) Mean Corpuscular Hemoglobin 30pg (25-35) Mean Corpuscular Hemoglobin Concent 33g/dL (31-37) Red Cell Distribution Width 13.0% (11.5-14.5) Platelet Count 285x10^3/uL (140-400) Neutrophils (%) (Auto) 82% (31-73) Lymphocytes (%) (Auto) 12% (24-48) Monocytes (%) (Auto) 6% (0-9) Eosinophils (%) (Auto) 0% (0-3) Basophils (%) (Auto) 0% (0-3) Neutrophils # (Auto) 10.5x10^3uL (1.8-7.7) Lymphocytes # (Auto) 1.6x10^3/uL (1.0-4.8) Monocytes # (Auto) 0.7x10^3/uL (0.0-1.1) Eosinophils # (Auto) 0.1x10^3/uL (0.0-0.7) Basophils # (Auto) 0.0x10^3/uL (0.0-0.2) Microbiology 08/30/16 Blood Culture - Final, Complete NO GROWTH AFTER 5 DAYS 09/11/16 Gram Stain - Final, Complete 08/30/16 Urine Culture - Final, Complete 08/30/16 Urine Culture Result 1 (TOAN) - Final, Complete 09/13/16 Gram Stain - Final, Complete Medications Current Medications Sodium Chloride (Iv Sodium Chloride 0.9% 1000ml Bag) 1,000 ml @ 1,000 mls/hr Q1H IV Last administered on 08/30/16 19:58; Start 08/30/16 at 19:45; Stop 07/06 at 20:44; Status DC Morphine Sulfate 4 mg 1X ONCE IV Last administered on 08/30/16 19:58; Start 08/30/16 at 19:45; Stop 08/30/16 at 19:46; Status DC Ondansetron HCl (Zofran) 4 mg 1X ONCE IV Last administered on 08/30/16 19:57 ; Start 08/30/16 at 19:45; Stop 08/30/16 at 19:46; Status DC Iohexol (Omnipaque 300 Mg/ml) 75 ml 1X ONCE IV Last administered on 08/30/16 20:57; Start 08/30/16 at 20:00; Stop 08/30/16 at 20:01; Status DC Morphine Sulfate 4 mg 1X ONCE IV Last administered on 08/30/16 22:22; Start 08/30/16 at 21:45; Stop 08/30/16 at 21:46; Status DC Piperacillin Sod/ Tazobactam Sod 1 each 1 each PRN DAILY PRN MC SEE COMMENTS; Start 08/30/16 at 21:45; Stop 09/02/16 at 13:43; Status DC Piperacillin Sod/ Tazobactam Sod/ Sodium Chloride (Zosyn/Iv Sodium Chloride 0.9 % 50ml) 50 ml @ 100 mls/hr Q6HRS IV Last administered on 09/04/16 05:07; Start 08/30/16 at 22:00; Stop 09/04/16 at 10:30; Status DC Ondansetron HCl (Zofran) 4 mg PRN Q8HRS PRN IV NAUSEA/VOMITING; Start 08/30/16 at 22:30; Stop 08/31/16 at 22:29; Status DC Morphine Sulfate 4 mg 4 mg PRN Q2HR PRN IV PAIN Last administered on 08/30/16 23:16; Start 08/30/16 at 22:30; Stop 08/31/16 at 22:29; Status DC Sodium Chloride (Iv Sodium Chloride 0.9% 1000ml Bag) 1,000 ml @ 125 mls/hr Q8H IV Last administered on 08/31/16 09:13; Start 08/30/16 at 22:30; Stop at 13:05; Status DC Acetaminophen 650 mg 650 mg PRN Q4HRS PRN PO FEVER Last administered on 23:15; Start 08/30/16 at 22:30; Stop 08/31/16 at 22:29; Status DC Hydromorphone HCl 30 ml @ 0 mls/hr CONT PRN PRN IV PROTOCOL Last administered on 09/15/16 11:55; Start 08/30/16 at 23:30 Potassium Chloride/Dextrose/ Sod Cl 1,000 ml @ 100 mls/hr Q10H IV Last administered on 09/01/16 03:52; Start 08/31/16 at 13:15; Stop 09/01/16 at 14:37 ; Status DC Sodium Chloride 1,000 ml @ 1,000 mls/hr 1X ONCE IV Last administered on 14:24; Start 08/31/16 at 13:15; Stop 08/31/16 at 14:14; Status DC Albumin Human (Plasmanate) 500 ml @ 125 mls/hr 1X ONCE IV Last administered on 08/31/16 17:21; Start 08/31/16 at 17:00; Stop 08/31/16 at 20:59; Status DC Ondansetron HCl 4 mg 4 mg PRN Q6HRS PRN IV NAUSEA/VOMITING Last administered on 09/12/16 16:07; Start 08/31/16 at 22:45 Amino Acids/ Glycerin/ Electrolytes (Procalamine) 1,000 ml @ 100 mls/hr Q10H IV Last administered on 09/05/16 10:00; Start 09/01/16 at 14:45; Stop at 21:59; Status DC Acetaminophen (Tylenol) 650 mg PRN Q4HRS PRN CA MILD PAIN / TEMP Last administered on 09/13/16 06:14; Start 09/01/16 at 20:30 Lorazepam (Ativan) 1 mg PRN Q4HRS PRN IV ANXIETY / AGITATION Last administered on 09/13/16 20:24; Start 09/02/16 at 10:30 Saliva Substitute (Biotene Moisturizing Mouth) 2 spray PRN Q15MIN PRN PO DRY MOUTH Last administered on 09/02/16 18:13; Start 09/02/16 at 10:30 Iohexol (Omnipaque 240 Mg/ml) 30 ml 1X ONCE PO Last administered on 09/03/16 10:18; Start 09/03/16 at 09:00; Stop 09/03/16 at 09:01; Status DC Iohexol (Omnipaque 300 Mg/ml) 75 ml 1X ONCE IV Last administered on 09/03/16 10:18; Start 09/03/16 at 09:00; Stop 09/03/16 at 09:01; Status DC Info (Do NOT chart on this entry -- for MONITORING) 1 each PRN DAILY PRN MC SEE COMMENTS; Start 09/03/16 at 08:45; Stop 09/05/16 at 08:44; Status DC Info 1 each PRN DAILY PRN MC SEE COMMENTS Last administered on 09/16/16 11:06 ; Start 09/04/16 at 15:00 Midazolam HCl (Versed) 5 mg STK-MED ONCE .ROUTE ; Start 09/04/16 at 09:54; Stop 09/04/16 at 09:55; Status DC Fentanyl Citrate (Fentanyl 5ml Vial) 250 mcg STK-MED ONCE .ROUTE ; Start at 09:54; Stop 09/04/16 at 09:55; Status DC Lidocaine/Sodium Bicarbonate 20 ml 20 ml STK-MED ONCE IJ ; Start 09/04/16 at 09: 55; Stop 09/04/16 at 09:56; Status DC Meropenem 1 gm/ Sodium Chloride 100 ml @ 200 mls/hr Q8HRS IV Last administered on 09/16/16 05:26; Start 09/04/16 at 14:00 Fluconazole/ Sodium Chloride (Diflucan 400mg/ 200ml Premix) 200 ml @ 100 mls/ hr Q24H IV Last administered on 09/16/16 11:31; Start 09/04/16 at 11:00 Lidocaine/Sodium Bicarbonate (Buffered Lidocaine 1%) 3 ml 1X ONCE IJ Last administered on 09/04/16 10:49; Start 09/04/16 at 10:45; Stop 09/04/16 at 10:48 ; Status DC Midazolam HCl (Versed) 0.5 mg 1X ONCE IV Last administered on 09/04/16 10:50 ; Start 09/04/16 at 10:45; Stop 09/04/16 at 10:48; Status DC Fentanyl Citrate 100 mcg 100 mcg 1X ONCE IV Last administered on 09/04/16 10: 50; Start 09/04/16 at 10:45; Stop 09/04/16 at 10:48; Status DC Sodium Chloride 90 meq/Potassium Chloride 50 meq/ Potassium Phosphate 13.6 mmol/ Magnesium Sulfate 10 meq/ Calcium Gluconate 10 meq/ Multivitamins/ Minerals 10 ml/ Chromium/Copper/ Manganese/Seleni/ Zn 1 ml/Total Parenteral Nutrition/Amino Acids/Dextrose/ Fat Emulsion Intravenous 1,512 ml @ 63 mls/hr TPN CONT IV Last administered on 09/05/16 20:50; Start 09/05/16 at 22:00; Stop 09/06/16 at 21:59; Status DC Levofloxacin/ Dextrose 150 ml @ 100 mls/hr 1X ONCE IV Last administered on 09:00; Start 09/06/16 at 09:00; Stop 09/06/16 at 10:29; Status DC Sodium Chloride/ Potassium Chloride/ Potassium Phosphate/ Magnesium Sulfate/ Calcium Gluconate/ Multivitamins/ Minerals/Chromium/ Copper/Manganese/ Seleni/Zn /Total Parenteral Nutrition/Amino Acids/Dextrose/ Fat Emulsion Intravenous ( Sodium Chloride/ Potassium Phospha... 1,512 ml @ 63 mls/hr TPN CONT IV Last administered on 09/06/16 21:49; Start 09/06/16 at 22:00; Stop 09/07/16 at 21:59 ; Status DC Alteplase, Recombinant (Cathflo) 2 mg 1X ONCE INT CAT Last administered on 20:43; Start 09/07/16 at 10:00; Stop 09/07/16 at 10:01; Status DC Vancomycin HCl (Vanco Per Pharmacy) 1 each PRN DAILY PRN MC SEE COMMENTS Last administered on 09/08/16 16:02; Start 09/07/16 at 10:30; Stop 09/11/16 at 10:23 ; Status DC Gentamicin Sulfate 1 each 1 each PRN DAILY PRN MC SEE COMMENTS; Start 09/07/16 at 10:15; Stop 09/07/16 at 13:00; Status DC Vancomycin HCl 2 gm/Sodium Chloride 500 ml @ 250 mls/hr 1X ONCE IV Last administered on 09/07/16 14:58; Start 09/07/16 at 11:00; Stop 09/07/16 at 12:59 ; Status DC Gentamicin Sulfate 500 mg/ Sodium Chloride 112.5 ml @ 112.5 mls/ hr 1X ONCE IV Last administered on 09/07/16 12:52; Start 09/07/16 at 11:00; Stop at 11:59; Status DC Sodium Chloride 90 meq/Potassium Chloride 50 meq/ Potassium Phosphate 13.6 mmol/ Magnesium Sulfate 10 meq/ Calcium Gluconate 10 meq/ Multivitamins/ Minerals 10 ml/ Chromium/Copper/ Manganese/Seleni/ Zn 1 ml/Total Parenteral Nutrition/Amino Acids/Dextrose/ Fat Emulsion Intravenous 1,512 ml @ 63 mls/hr TPN CONT IV Last administered on 09/07/16 21:41; Start 09/07/16 at 22:00; Stop 09/08/16 at 21:59; Status DC Vancomycin HCl/ Sodium Chloride (Iv Sodium Chloride 0.9% 250ml) 250 ml @ 167 mls/hr Q8H IV Last administered on 09/08/16 05:39; Start 09/07/16 at 23:00; Stop 09/08/16 at 15:54; Status DC Vancomycin HCl 1 each 1 each 1X ONCE MC Last administered on 09/08/16 14:30; Start 09/08/16 at 14:30; Stop 09/08/16 at 14:31; Status DC Sodium Chloride/ Potassium Chloride/ Potassium Phosphate/ Magnesium Sulfate/ Calcium Gluconate/ Multivitamins/ Minerals/Chromium/ Copper/Manganese/ Seleni/Zn /Total Parenteral Nutrition/Amino Acids/Dextrose/ Fat Emulsion Intravenous ( Sodium Chloride/ Potassium Phospha... 1,512 ml @ 63 mls/hr TPN CONT IV Last administered on 09/08/16 22:23; Start 09/08/16 at 22:00; Stop 09/09/16 at 21:59 ; Status DC Pantoprazole Sodium 40 mg 40 mg DAILYAC IVP Last administered on 09/16/16 08: 38; Start 09/08/16 at 15:00 Vancomycin HCl 1.25 gm/Sodium Chloride 250 ml @ 167 mls/hr Q6HRS IV Last administered on 09/11/16 06:14; Start 09/08/16 at 17:00; Stop 09/11/16 at 10:23 ; Status DC Sodium Chloride 120 meq/Potassium Chloride 50 meq/ Potassium Phosphate 13.6 mmol /Magnesium Sulfate 10 meq/ Calcium Gluconate 10 meq/ Multivitamins/ Minerals 10 ml/ Chromium/Copper/ Manganese/Seleni/ Zn 1 ml/Total Parenteral Nutrition/Amino Acids/Dextrose/ Fat Emulsion Intravenous 1,512 ml @ 63 mls/hr TPN CONT IV Last administered on 09/09/16 22:37; Start 09/09/16 at 22:00; Stop 09/10/16 at 21:59; Status DC Sodium Chloride/ Potassium Chloride/ Potassium Phosphate/ Magnesium Sulfate/ Calcium Gluconate/ Multivitamins/ Minerals/Chromium/ Copper/Manganese/ Seleni/Zn /Total Parenteral Nutrition/Amino Acids/Dextrose/ Fat Emulsion Intravenous ( Sodium Chloride/ Potassium Phospha... 1,512 ml @ 63 mls/hr TPN CONT IV Last administered on 09/10/16 21:57; Start 09/10/16 at 22:00; Stop 09/11/16 at 21:59 ; Status DC Iohexol (Omnipaque 240 Mg/ml) 30 ml 1X ONCE PO Last administered on 09/10/16 14:15; Start 09/10/16 at 14:15; Stop 09/10/16 at 14:21; Status DC Iohexol (Omnipaque 300 Mg/ml) 75 ml 1X ONCE IV Last administered on 09/10/16 15:41; Start 09/10/16 at 14:15; Stop 09/10/16 at 14:21; Status DC Info (Do NOT chart on this entry -- for MONITORING) 1 each PRN DAILY PRN MC SEE COMMENTS; Start 09/10/16 at 14:30; Stop 09/12/16 at 14:29; Status DC Lidocaine/Sodium Bicarbonate (Buffered Lidocaine 1%) 20 ml STK-MED ONCE IJ ; Start 09/11/16 at 13:02; Stop 09/11/16 at 13:03; Status DC Fentanyl Citrate (Fentanyl 2ml Vial) 100 mcg STK-MED ONCE .ROUTE ; Start at 13:20; Stop 09/11/16 at 13:21; Status DC Midazolam HCl 5 mg 5 mg STK-MED ONCE .ROUTE ; Start 09/11/16 at 13:20; Stop at 13:21; Status DC Sodium Chloride/ Potassium Chloride/ Potassium Phosphate/ Magnesium Sulfate/ Calcium Gluconate/ Multivitamins/ Minerals/Chromium/ Copper/Manganese/ Seleni/Zn /Total Parenteral Nutrition/Amino Acids/Dextrose/ Fat Emulsion Intravenous ( Sodium Chloride/ Potassium Phospha... 1,512 ml @ 63 mls/hr TPN CONT IV Last administered on 09/11/16 21:06; Start 09/11/16 at 22:00; Stop 09/12/16 at 21:59 ; Status DC Lidocaine/Sodium Bicarbonate (Buffered Lidocaine 1%) 20 ml 1X ONCE IJ Last administered on 09/11/16 14:00; Start 09/11/16 at 14:00; Stop 09/11/16 at 14:01 ; Status DC Midazolam HCl (Versed) 5 mg 1X ONCE IV Last administered on 09/11/16 14:00; Start 09/11/16 at 14:00; Stop 09/11/16 at 14:01; Status DC Fentanyl Citrate (Fentanyl 2ml Vial) 100 mcg 1X ONCE IV Last administered on 14:00; Start 09/11/16 at 14:00; Stop 09/11/16 at 14:01; Status DC Metoprolol Tartrate 5 mg 5 mg Q6HRS IVP Last administered on 09/16/16 11:33; Start 09/11/16 at 22:00 Dextrose/Sodium Chloride (Iv D5% - NS) 1,000 ml @ 125 mls/hr 1X ONCE IV Last administered on 09/12/16 10:29; Start 09/12/16 at 10:30; Stop 09/12/16 at 18:29 ; Status DC Enoxaparin Sodium 40 mg 40 mg Q24H SQ Last administered on 09/15/16 14:07; Start 09/12/16 at 13:00 Sodium Chloride 1,000 ml @ 75 mls/hr 1X ONCE IV Last administered on 21:27; Start 09/12/16 at 12:00; Stop 09/13/16 at 01:19; Status DC Sodium Chloride/ Potassium Chloride/ Potassium Phosphate/ Magnesium Sulfate/ Calcium Gluconate/ Multivitamins/ Minerals/Chromium/ Copper/Manganese/ Seleni/Zn /Total Parenteral Nutrition/Amino Acids/Dextrose/ Fat Emulsion Intravenous ( Sodium Chloride/ Potassium Phospha... 1,512 ml @ 63 mls/hr TPN CONT IV Last administered on 09/12/16 19:52; Start 09/12/16 at 22:00; Stop 09/13/16 at 21:59 ; Status DC Desflurane (Suprane) 90 ml STK-MED ONCE IH ; Start 09/13/16 at 13:23; Stop 09/13 at 13:24; Status DC Fentanyl Citrate (Fentanyl 2ml Vial) 100 mcg STK-MED ONCE .ROUTE ; Start at 13:23; Stop 09/13/16 at 13:24; Status DC Midazolam HCl (Versed) 2 mg STK-MED ONCE .ROUTE ; Start 09/13/16 at 13:23; Stop 09/13/16 at 13:24; Status DC Glycopyrrolate (Robinul) 1 mg STK-MED ONCE .ROUTE ; Start 09/13/16 at 13:23; Stop 09/13/16 at 13:24; Status DC Neostigmine Methylsulfate 5 mg 5 mg STK-MED ONCE .ROUTE ; Start 09/13/16 at 13: 23; Stop 09/13/16 at 13:24; Status DC Propofol (Diprivan) 20 ml @ As Directed STK-MED ONCE IV ; Start 09/13/16 at 13: 24; Stop 09/13/16 at 13:25; Status DC Dexamethasone Sodium Phosphate (Decadron) 20 mg STK-MED ONCE .ROUTE ; Start at 13:24; Stop 09/13/16 at 13:25; Status DC Ketorolac Tromethamine (Toradol For Or Only) 30 mg STK-MED ONCE INJ ; Start at 13:24; Stop 09/13/16 at 13:25; Status DC Ondansetron HCl (Zofran) 4 mg STK-MED ONCE .ROUTE ; Start 09/13/16 at 13:24; Stop 09/13/16 at 13:25; Status DC Lidocaine HCl 100 mg STK-MED ONCE .ROUTE ; Start 09/13/16 at 13:24; Stop at 13:25; Status DC Succinylcholine Chloride (Anectine) 200 mg STK-MED ONCE .ROUTE ; Start 09/13/16 at 13:25; Stop 09/13/16 at 13:26; Status DC Rocuronium [place] 50 mg 50 mg STK-MED ONCE .ROUTE ; Start 09/13/16 at 13:25; Stop 09/13/16 at 13:26; Status DC Sodium Chloride/ Potassium Chloride/ Potassium Phosphate/ Magnesium Sulfate/ Calcium Gluconate/ Multivitamins/ Minerals/Chromium/ Copper/Manganese/ Seleni/Zn /Total Parenteral Nutrition/Amino Acids/Dextrose/ Fat Emulsion Intravenous ( Sodium Chloride/ Potassium Phospha... 1,512 ml @ 63 mls/hr TPN CONT IV Last administered on 09/13/16 19:36; Start 09/13/16 at 22:00; Stop 09/14/16 at 21:59 ; Status DC Morphine Sulfate 1 mg 1 mg PRN Q10MIN PRN IV SEVERE PAIN; Start 09/13/16 at 15: 15; Stop 09/14/16 at 15:14; Status DC Lactated Ringer's (Iv Lactated Ringers) 1,000 ml @ 0 mls/hr Q0M IV ; Start at 15:11; Stop 09/14/16 at 03:10; Status DC Lidocaine HCl 2 ml 1X PRN PRN ID IV START; Start 09/13/16 at 15:15; Stop at 15:14; Status DC Hydromorphone HCl (Dilaudid) 0.5 mg PRN Q10MIN PRN IV SEV PAIN,Second choice Last administered on 09/13/16 19:02; Start 09/13/16 at 15:15; Stop 09/14/16 at 15:14; Status DC Prochlorperazine Edisylate (Compazine) 5 mg PACU PRN PRN IV NAUSEA; Start 09/13 at 15:15; Stop 09/14/16 at 15:14; Status DC Rocuronium [place] (Zemuron) 50 mg STK-MED ONCE .ROUTE ; Start 09/13/16 at 15:43 ; Stop 09/13/16 at 15:44; Status DC Fentanyl Citrate (Fentanyl 2ml Vial) 100 mcg STK-MED ONCE .ROUTE ; Start at 17:27; Stop 09/13/16 at 17:28; Status DC Sevoflurane (Ultane) 90 ml STK-MED ONCE IH ; Start 09/13/16 at 17:47; Stop 09/13 at 17:48; Status DC Diphenhydramine HCl (Benadryl) 25 mg PRN Q6HRS PRN PO ITCHING; Start 09/13/16 at 18:00 Diphenhydramine HCl (Benadryl) 25 mg PRN Q6HRS PRN IV ITCHING; Start 09/13/16 at 18:00 Enoxaparin Sodium (Lovenox 40mg Syringe) 40 mg Q24H SQ ; Start 09/13/16 at 18:00 ; Status UNV Sodium Chloride 3 ml 3 ml QSHIFT PRN IV AFTER MEDS AND BLOOD DRAWS; Start 09/13 at 18:00 Hydromorphone HCl (Dilaudid Standard [employer] INSPECTOR) 30 ml @ 0 mls/hr CONT PRN PRN IV PROTOCOL; Start 09/13/16 at 18:00; Stop 09/14/16 at 12:34; Status DC Ondansetron HCl (Zofran) 4 mg PRN Q6HRS PRN IV NAUESA, 1ST CHOICE; Start at 18:00; Status UNV Throat Lozenges (Chloraseptic) 1 spray PRN Q2HR PRN PO SORE THROAT Last administered on 09/14/16t 11:39; Start 09/13/16 at 18:30 Throat Lozenges 1 nabila 1 naibla PRN Q2HRS PRN PO SORE THROAT Last administered on 14:26; Start 09/13/16 at 18:30 Sodium Chloride 180 meq/Potassium Chloride 10 meq/ Potassium Phosphate 6.8 mmol/ Magnesium Sulfate 10 meq/ Calcium Gluconate 10 meq/ Multivitamins/ Minerals 10 ml/ Chromium/Copper/ Manganese/Seleni/ Zn 1 ml/Total Parenteral Nutrition/Amino Acids/Dextrose/ Fat Emulsion Intravenous 1,512 ml @ 63 mls/hr TPN CONT IV Last administered on 09/14/16 21:36; Start 09/14/16 at 22:00; Stop 09/15/16 at 21:59; Status DC Sodium Chloride 180 meq/Potassium Chloride 10 meq/ Potassium Phosphate 6.8 mmol/ Magnesium Sulfate 10 meq/ Calcium Gluconate 10 meq/ Multivitamins/ Minerals 10 ml/ Chromium/Copper/ Manganese/Seleni/ Zn 1 ml/Total Parenteral Nutrition/Amino Acids/Dextrose/ Fat Emulsion Intravenous 1,512 ml @ 63 mls/hr TPN CONT IV Last administered on 09/15/16 21:59; Start 09/15/16 at 22:00; Stop 09/16/16 at 21:59 Sodium Chloride/ Potassium Chloride/ Potassium Phosphate/ Magnesium Sulfate/ Calcium Gluconate/ Multivitamins/ Minerals/Chromium/ Copper/Manganese/ Seleni/Zn /Total Parenteral Nutrition/Amino Acids/Dextrose/ Fat Emulsion Intravenous ( Sodium Chloride/ Potassium Phospha... 1,512 ml @ 63 mls/hr TPN CONT IV ; Start 09/16/16 at 22:00; Stop 09/17/16 at 21:59 Vitals/I & O Vital Sign - Last 24 Hours 09/15/16 09/15/16 09/15/16 09/15/16 14:51 17:49 19:59 20:30 Temp 98.5 99.5 98.5 99.5 Pulse 99 100 114 Resp 18 20 B/P 117/77 117/79 123/86 Pulse Ox 97 98 O2 Delivery Room Air Room Air Room Air 09/15/16 09/15/16 09/16/16 09/16/16 23:50 23:59 03:59 05:25 Temp 98.9 98.6 98.9 98.6 Pulse 111 111 107 114 Resp 20 20 B/P 116/90 116/90 132/89 140/93 Pulse Ox 99 97 O2 Delivery Room Air Room Air 09/16/16 09/16/16 09/16/16 09/16/16 07:00 07:50 11:00 11:33 Temp 101.1 99.5 101.1 99.5 Pulse 62 101 101 Resp 16 22 B/P 129/84 133/86 133/86 Pulse Ox 98 96 O2 Delivery Room Air Room Air Room Air Intake and Output 09/15/16 09/15/16 09/16/16 15:00 23:00 07:00 Intake Total 300 ml 1200 ml Output Total 525 ml 457 ml 33 ml Balance -225 ml 743 ml -33 ml YUN AHN MD Sep 16, 2016 12:34
--- NOTE | 2016-09-16 14:11 | PDOC ---
Provider Note Provider Note ng has been clamped since 0600 without n/v, belching or distention tmax ~101 vss appears well abd soft nd approp tender bandage dry drains serous a/p check ng residual. if low, then dc ng and start clears. EDDEI PATEL MD Sep 16, 2016 14:11
[2016-09-16 15:00] VITALS: BP 131/94
[2016-09-16] MEDS: ENOXAPARIN 40 MG/0.4 ML DISP.SYRIN. SQ SCH (15:07)
[2016-09-16 19:00] VITALS: BP 155/98
[2016-09-16] MEDS ORDERED: DEXTROSE 70% IV SCH ×10 (22:00)
[2016-09-16] MEDS ORDERED: AMINO ACIDS IV SCH ×10 (22:00)
[2016-09-16] MEDS ORDERED: TOTAL PARENTERAL NUTRITION IV SCH ×10 (22:00)
[2016-09-16] MEDS ORDERED: [UNRECOGNIZED DRUG - OTHER] IV SCH ×10 (22:00)
[2016-09-16] MEDS: HYDROMORPHONE STANDARD PCA 30 ML IV PRN (22:15)
[2016-09-16 22:39] VITALS: BP 126/98
[2016-09-17 02:34] VITALS: BP 154/101
[2016-09-17] MEDS: MEROPENEM 1 GM in IV NORMAL SALINE 100ML 100 ML IV SCH ×3 (05:32→21:49)
[2016-09-17] MEDS: METOPROLOL TARTRATE 5 MG/5 ML VIAL. IVP SCH ×3 (05:33→17:23)
[2016-09-17 07:00] VITALS: BP 135/93
[2016-09-17] MEDS: PANTOPRAZOLE IV PUSH 40 MG VIAL. IVP SCH (07:39)
[2016-09-17] MEDS: TPN PER PHARMACY MC PRN (09:54)
--- NOTE | 2016-09-17 10:38 | PDOC ---
PROGRESS NOTES Chief Complaint Chief Complaint cc: abdominal pain A/P Acute abdominal pain 2/2 abdominal abscess, S/P drain placements 09/04, 09/11; s/ p rigid proctoscopy, exploratory laparotomy, VANESSA, appendectomy 09/13 Sepsis- 09/04 - Ecoli/Strep anginosis Perforated viscus Severe malnutrition, on [employer] for abdominal pain Recurrent abdominal abscess Dehydration Plan Pain control with Dilaudid [employer] Avoid co2 narcosis Abx per ID- Fluconazole and meropenem low dose Metoprolol, Tachycardia improved, intake and out put IV NS Follow culture, Surgical ID has been following ON TPN, Monitor electrolytes DVT prophylaxis- Lovenox Pregnosis- guarded, History of Present Illness History of Present Illness no flatus no fever no chills tachycardia Vitals Vitals Vital Signs Date Time Temp Pulse Resp B/P Pulse Ox O2 Delivery O2 Flow Rate FiO2 09/17/16 08:00 Room Air 09/17/16 07:00 98.6 108 20 135/93 97 98.6 Physical Exam General: Alert, Oriented X3, Cooperative, No acute distress Heart: Normal S1, Normal S2, No murmurs, Other (Sinus tach) Lungs: Clear Abdomen: Soft, Other (drais present) Extremities: No cyanosis, No edema Skin: Other (abdominal drain in place) Assessment and Plan Assessmemt and Plan Problems Medical Problems: (1) Abdominal abscess Status: Acute (2) Abdominal pain Status: Acute (3) Pneumoperitoneum Status: Acute Problems: Comment Review of Relevant I have reviewed the following items crystal (where applicable) has been applied. Labs Laboratory Tests Test 09/16/16 06:52 White Blood Count 12.9x10^3/uL (4.0-11.0) Red Blood Count 3.36x10^6/uL (4.30-5.70) Hemoglobin 9.9g/dL (13.0-17.5) Hematocrit 29.9% (39.0-53.0) Mean Corpuscular Volume 89fL (79-100) Mean Corpuscular Hemoglobin 30pg (25-35) Mean Corpuscular Hemoglobin Concent 33g/dL (31-37) Red Cell Distribution Width 13.0% (11.5-14.5) Platelet Count 285x10^3/uL (140-400) Neutrophils (%) (Auto) 82% (31-73) Lymphocytes (%) (Auto) 12% (24-48) Monocytes (%) (Auto) 6% (0-9) Eosinophils (%) (Auto) 0% (0-3) Basophils (%) (Auto) 0% (0-3) Neutrophils # (Auto) 10.5x10^3uL (1.8-7.7) Lymphocytes # (Auto) 1.6x10^3/uL (1.0-4.8) Monocytes # (Auto) 0.7x10^3/uL (0.0-1.1) Eosinophils # (Auto) 0.1x10^3/uL (0.0-0.7) Basophils # (Auto) 0.0x10^3/uL (0.0-0.2) Microbiology 08/30/16 Blood Culture - Final, Complete NO GROWTH AFTER 5 DAYS 09/11/16 Gram Stain - Final, Complete 08/30/16 Urine Culture - Final, Complete 08/30/16 Urine Culture Result 1 (TOAN) - Final, Complete 09/13/16 Gram Stain - Final, Complete Medications Current Medications Sodium Chloride (Iv Sodium Chloride 0.9% 1000ml Bag) 1,000 ml @ 1,000 mls/hr Q1H IV Last administered on 08/30/16 19:58; Start 08/30/16 at 19:45; Stop 07/06 at 20:44; Status DC Morphine Sulfate 4 mg 1X ONCE IV Last administered on 08/30/16 19:58; Start 08/30/16 at 19:45; Stop 08/30/16 at 19:46; Status DC Ondansetron HCl (Zofran) 4 mg 1X ONCE IV Last administered on 08/30/16 19:57 ; Start 08/30/16 at 19:45; Stop 08/30/16 at 19:46; Status DC Iohexol (Omnipaque 300 Mg/ml) 75 ml 1X ONCE IV Last administered on 08/30/16 20:57; Start 08/30/16 at 20:00; Stop 08/30/16 at 20:01; Status DC Morphine Sulfate 4 mg 1X ONCE IV Last administered on 08/30/16 22:22; Start 08/30/16 at 21:45; Stop 08/30/16 at 21:46; Status DC Piperacillin Sod/ Tazobactam Sod 1 each 1 each PRN DAILY PRN MC SEE COMMENTS; Start 08/30/16 at 21:45; Stop 09/02/16 at 13:43; Status DC Piperacillin Sod/ Tazobactam Sod/ Sodium Chloride (Zosyn/Iv Sodium Chloride 0.9 % 50ml) 50 ml @ 100 mls/hr Q6HRS IV Last administered on 09/04/16 05:07; Start 08/30/16 at 22:00; Stop 09/04/16 at 10:30; Status DC Ondansetron HCl (Zofran) 4 mg PRN Q8HRS PRN IV NAUSEA/VOMITING; Start 08/30/16 at 22:30; Stop 08/31/16 at 22:29; Status DC Morphine Sulfate 4 mg 4 mg PRN Q2HR PRN IV PAIN Last administered on 08/30/16 23:16; Start 08/30/16 at 22:30; Stop 08/31/16 at 22:29; Status DC Sodium Chloride (Iv Sodium Chloride 0.9% 1000ml Bag) 1,000 ml @ 125 mls/hr Q8H IV Last administered on 08/31/16 09:13; Start 08/30/16 at 22:30; Stop at 13:05; Status DC Acetaminophen 650 mg 650 mg PRN Q4HRS PRN PO FEVER Last administered on 23:15; Start 08/30/16 at 22:30; Stop 08/31/16 at 22:29; Status DC Hydromorphone HCl 30 ml @ 0 mls/hr CONT PRN PRN IV PROTOCOL Last administered on 09/16/16 22:15; Start 08/30/16 at 23:30 Potassium Chloride/Dextrose/ Sod Cl 1,000 ml @ 100 mls/hr Q10H IV Last administered on 09/01/16 03:52; Start 08/31/16 at 13:15; Stop 09/01/16 at 14:37 ; Status DC Sodium Chloride 1,000 ml @ 1,000 mls/hr 1X ONCE IV Last administered on 14:24; Start 08/31/16 at 13:15; Stop 08/31/16 at 14:14; Status DC Albumin Human (Plasmanate) 500 ml @ 125 mls/hr 1X ONCE IV Last administered on 08/31/16 17:21; Start 08/31/16 at 17:00; Stop 08/31/16 at 20:59; Status DC Ondansetron HCl 4 mg 4 mg PRN Q6HRS PRN IV NAUSEA/VOMITING Last administered on 09/12/16 16:07; Start 08/31/16 at 22:45 Amino Acids/ Glycerin/ Electrolytes (Procalamine) 1,000 ml @ 100 mls/hr Q10H IV Last administered on 09/05/16 10:00; Start 09/01/16 at 14:45; Stop at 21:59; Status DC Acetaminophen (Tylenol) 650 mg PRN Q4HRS PRN TX MILD PAIN / TEMP Last administered on 09/13/16 06:14; Start 09/01/16 at 20:30 Lorazepam (Ativan) 1 mg PRN Q4HRS PRN IV ANXIETY / AGITATION Last administered on 09/13/16 20:24; Start 09/02/16 at 10:30 Saliva Substitute (Biotene Moisturizing Mouth) 2 spray PRN Q15MIN PRN PO DRY MOUTH Last administered on 09/02/16 18:13; Start 09/02/16 at 10:30 Iohexol (Omnipaque 240 Mg/ml) 30 ml 1X ONCE PO Last administered on 09/03/16 10:18; Start 09/03/16 at 09:00; Stop 09/03/16 at 09:01; Status DC Iohexol (Omnipaque 300 Mg/ml) 75 ml 1X ONCE IV Last administered on 09/03/16 10:18; Start 09/03/16 at 09:00; Stop 09/03/16 at 09:01; Status DC Info (Do NOT chart on this entry -- for MONITORING) 1 each PRN DAILY PRN MC SEE COMMENTS; Start 09/03/16 at 08:45; Stop 09/05/16 at 08:44; Status DC Info 1 each PRN DAILY PRN MC SEE COMMENTS Last administered on 09/17/16 09:54 ; Start 09/04/16 at 15:00 Midazolam HCl (Versed) 5 mg STK-MED ONCE .ROUTE ; Start 09/04/16 at 09:54; Stop 09/04/16 at 09:55; Status DC Fentanyl Citrate (Fentanyl 5ml Vial) 250 mcg STK-MED ONCE .ROUTE ; Start at 09:54; Stop 09/04/16 at 09:55; Status DC Lidocaine/Sodium Bicarbonate 20 ml 20 ml STK-MED ONCE IJ ; Start 09/04/16 at 09: 55; Stop 09/04/16 at 09:56; Status DC Meropenem 1 gm/ Sodium Chloride 100 ml @ 200 mls/hr Q8HRS IV Last administered on 09/17/16 05:32; Start 09/04/16 at 14:00 Fluconazole/ Sodium Chloride (Diflucan 400mg/ 200ml Premix) 200 ml @ 100 mls/ hr Q24H IV Last administered on 09/16/16 11:31; Start 09/04/16 at 11:00 Lidocaine/Sodium Bicarbonate (Buffered Lidocaine 1%) 3 ml 1X ONCE IJ Last administered on 09/04/16 10:49; Start 09/04/16 at 10:45; Stop 09/04/16 at 10:48 ; Status DC Midazolam HCl (Versed) 0.5 mg 1X ONCE IV Last administered on 09/04/16 10:50 ; Start 09/04/16 at 10:45; Stop 09/04/16 at 10:48; Status DC Fentanyl Citrate 100 mcg 100 mcg 1X ONCE IV Last administered on 09/04/16 10: 50; Start 09/04/16 at 10:45; Stop 09/04/16 at 10:48; Status DC Sodium Chloride 90 meq/Potassium Chloride 50 meq/ Potassium Phosphate 13.6 mmol/ Magnesium Sulfate 10 meq/ Calcium Gluconate 10 meq/ Multivitamins/ Minerals 10 ml/ Chromium/Copper/ Manganese/Seleni/ Zn 1 ml/Total Parenteral Nutrition/Amino Acids/Dextrose/ Fat Emulsion Intravenous 1,512 ml @ 63 mls/hr TPN CONT IV Last administered on 09/05/16 20:50; Start 09/05/16 at 22:00; Stop 09/06/16 at 21:59; Status DC Levofloxacin/ Dextrose 150 ml @ 100 mls/hr 1X ONCE IV Last administered on 09:00; Start 09/06/16 at 09:00; Stop 09/06/16 at 10:29; Status DC Sodium Chloride/ Potassium Chloride/ Potassium Phosphate/ Magnesium Sulfate/ Calcium Gluconate/ Multivitamins/ Minerals/Chromium/ Copper/Manganese/ Seleni/Zn /Total Parenteral Nutrition/Amino Acids/Dextrose/ Fat Emulsion Intravenous ( Sodium Chloride/ Potassium Phospha... 1,512 ml @ 63 mls/hr TPN CONT IV Last administered on 09/06/16 21:49; Start 09/06/16 at 22:00; Stop 09/07/16 at 21:59 ; Status DC Alteplase, Recombinant (Cathflo) 2 mg 1X ONCE INT CAT Last administered on 20:43; Start 09/07/16 at 10:00; Stop 09/07/16 at 10:01; Status DC Vancomycin HCl (Vanco Per Pharmacy) 1 each PRN DAILY PRN MC SEE COMMENTS Last administered on 09/08/16 16:02; Start 09/07/16 at 10:30; Stop 09/11/16 at 10:23 ; Status DC Gentamicin Sulfate 1 each 1 each PRN DAILY PRN MC SEE COMMENTS; Start 09/07/16 at 10:15; Stop 09/07/16 at 13:00; Status DC Vancomycin HCl 2 gm/Sodium Chloride 500 ml @ 250 mls/hr 1X ONCE IV Last administered on 09/07/16 14:58; Start 09/07/16 at 11:00; Stop 09/07/16 at 12:59 ; Status DC Gentamicin Sulfate 500 mg/ Sodium Chloride 112.5 ml @ 112.5 mls/ hr 1X ONCE IV Last administered on 09/07/16 12:52; Start 09/07/16 at 11:00; Stop at 11:59; Status DC Sodium Chloride 90 meq/Potassium Chloride 50 meq/ Potassium Phosphate 13.6 mmol/ Magnesium Sulfate 10 meq/ Calcium Gluconate 10 meq/ Multivitamins/ Minerals 10 ml/ Chromium/Copper/ Manganese/Seleni/ Zn 1 ml/Total Parenteral Nutrition/Amino Acids/Dextrose/ Fat Emulsion Intravenous 1,512 ml @ 63 mls/hr TPN CONT IV Last administered on 09/07/16 21:41; Start 09/07/16 at 22:00; Stop 09/08/16 at 21:59; Status DC Vancomycin HCl/ Sodium Chloride (Iv Sodium Chloride 0.9% 250ml) 250 ml @ 167 mls/hr Q8H IV Last administered on 09/08/16 05:39; Start 09/07/16 at 23:00; Stop 09/08/16 at 15:54; Status DC Vancomycin HCl 1 each 1 each 1X ONCE MC Last administered on 09/08/16 14:30; Start 09/08/16 at 14:30; Stop 09/08/16 at 14:31; Status DC Sodium Chloride/ Potassium Chloride/ Potassium Phosphate/ Magnesium Sulfate/ Calcium Gluconate/ Multivitamins/ Minerals/Chromium/ Copper/Manganese/ Seleni/Zn /Total Parenteral Nutrition/Amino Acids/Dextrose/ Fat Emulsion Intravenous ( Sodium Chloride/ Potassium Phospha... 1,512 ml @ 63 mls/hr TPN CONT IV Last administered on 09/08/16 22:23; Start 09/08/16 at 22:00; Stop 09/09/16 at 21:59 ; Status DC Pantoprazole Sodium 40 mg 40 mg DAILYAC IVP Last administered on 09/17/16 07: 39; Start 09/08/16 at 15:00 Vancomycin HCl 1.25 gm/Sodium Chloride 250 ml @ 167 mls/hr Q6HRS IV Last administered on 09/11/16 06:14; Start 09/08/16 at 17:00; Stop 09/11/16 at 10:23 ; Status DC Sodium Chloride 120 meq/Potassium Chloride 50 meq/ Potassium Phosphate 13.6 mmol /Magnesium Sulfate 10 meq/ Calcium Gluconate 10 meq/ Multivitamins/ Minerals 10 ml/ Chromium/Copper/ Manganese/Seleni/ Zn 1 ml/Total Parenteral Nutrition/Amino Acids/Dextrose/ Fat Emulsion Intravenous 1,512 ml @ 63 mls/hr TPN CONT IV Last administered on 09/09/16 22:37; Start 09/09/16 at 22:00; Stop 09/10/16 at 21:59; Status DC Sodium Chloride/ Potassium Chloride/ Potassium Phosphate/ Magnesium Sulfate/ Calcium Gluconate/ Multivitamins/ Minerals/Chromium/ Copper/Manganese/ Seleni/Zn /Total Parenteral Nutrition/Amino Acids/Dextrose/ Fat Emulsion Intravenous ( Sodium Chloride/ Potassium Phospha... 1,512 ml @ 63 mls/hr TPN CONT IV Last administered on 09/10/16 21:57; Start 09/10/16 at 22:00; Stop 09/11/16 at 21:59 ; Status DC Iohexol (Omnipaque 240 Mg/ml) 30 ml 1X ONCE PO Last administered on 09/10/16 14:15; Start 09/10/16 at 14:15; Stop 09/10/16 at 14:21; Status DC Iohexol (Omnipaque 300 Mg/ml) 75 ml 1X ONCE IV Last administered on 09/10/16 15:41; Start 09/10/16 at 14:15; Stop 09/10/16 at 14:21; Status DC Info (Do NOT chart on this entry -- for MONITORING) 1 each PRN DAILY PRN MC SEE COMMENTS; Start 09/10/16 at 14:30; Stop 09/12/16 at 14:29; Status DC Lidocaine/Sodium Bicarbonate (Buffered Lidocaine 1%) 20 ml STK-MED ONCE IJ ; Start 09/11/16 at 13:02; Stop 09/11/16 at 13:03; Status DC Fentanyl Citrate (Fentanyl 2ml Vial) 100 mcg STK-MED ONCE .ROUTE ; Start at 13:20; Stop 09/11/16 at 13:21; Status DC Midazolam HCl 5 mg 5 mg STK-MED ONCE .ROUTE ; Start 09/11/16 at 13:20; Stop at 13:21; Status DC Sodium Chloride/ Potassium Chloride/ Potassium Phosphate/ Magnesium Sulfate/ Calcium Gluconate/ Multivitamins/ Minerals/Chromium/ Copper/Manganese/ Seleni/Zn /Total Parenteral Nutrition/Amino Acids/Dextrose/ Fat Emulsion Intravenous ( Sodium Chloride/ Potassium Phospha... 1,512 ml @ 63 mls/hr TPN CONT IV Last administered on 09/11/16 21:06; Start 09/11/16 at 22:00; Stop 09/12/16 at 21:59 ; Status DC Lidocaine/Sodium Bicarbonate (Buffered Lidocaine 1%) 20 ml 1X ONCE IJ Last administered on 09/11/16 14:00; Start 09/11/16 at 14:00; Stop 09/11/16 at 14:01 ; Status DC Midazolam HCl (Versed) 5 mg 1X ONCE IV Last administered on 09/11/16 14:00; Start 09/11/16 at 14:00; Stop 09/11/16 at 14:01; Status DC Fentanyl Citrate (Fentanyl 2ml Vial) 100 mcg 1X ONCE IV Last administered on 14:00; Start 09/11/16 at 14:00; Stop 09/11/16 at 14:01; Status DC Metoprolol Tartrate 5 mg 5 mg Q6HRS IVP Last administered on 09/17/16 05:33; Start 09/11/16 at 22:00 Dextrose/Sodium Chloride (Iv D5% - NS) 1,000 ml @ 125 mls/hr 1X ONCE IV Last administered on 09/12/16 10:29; Start 09/12/16 at 10:30; Stop 09/12/16 at 18:29 ; Status DC Enoxaparin Sodium 40 mg 40 mg Q24H SQ Last administered on 09/16/16 15:07; Start 09/12/16 at 13:00 Sodium Chloride 1,000 ml @ 75 mls/hr 1X ONCE IV Last administered on 21:27; Start 09/12/16 at 12:00; Stop 09/13/16 at 01:19; Status DC Sodium Chloride/ Potassium Chloride/ Potassium Phosphate/ Magnesium Sulfate/ Calcium Gluconate/ Multivitamins/ Minerals/Chromium/ Copper/Manganese/ Seleni/Zn /Total Parenteral Nutrition/Amino Acids/Dextrose/ Fat Emulsion Intravenous ( Sodium Chloride/ Potassium Phospha... 1,512 ml @ 63 mls/hr TPN CONT IV Last administered on 09/12/16 19:52; Start 09/12/16 at 22:00; Stop 09/13/16 at 21:59 ; Status DC Desflurane (Suprane) 90 ml STK-MED ONCE IH ; Start 09/13/16 at 13:23; Stop 09/13 at 13:24; Status DC Fentanyl Citrate (Fentanyl 2ml Vial) 100 mcg STK-MED ONCE .ROUTE ; Start at 13:23; Stop 09/13/16 at 13:24; Status DC Midazolam HCl (Versed) 2 mg STK-MED ONCE .ROUTE ; Start 09/13/16 at 13:23; Stop 09/13/16 at 13:24; Status DC Glycopyrrolate (Robinul) 1 mg STK-MED ONCE .ROUTE ; Start 09/13/16 at 13:23; Stop 09/13/16 at 13:24; Status DC Neostigmine Methylsulfate 5 mg 5 mg STK-MED ONCE .ROUTE ; Start 09/13/16 at 13: 23; Stop 09/13/16 at 13:24; Status DC Propofol (Diprivan) 20 ml @ As Directed STK-MED ONCE IV ; Start 09/13/16 at 13: 24; Stop 09/13/16 at 13:25; Status DC Dexamethasone Sodium Phosphate (Decadron) 20 mg STK-MED ONCE .ROUTE ; Start at 13:24; Stop 09/13/16 at 13:25; Status DC Ketorolac Tromethamine (Toradol For Or Only) 30 mg STK-MED ONCE INJ ; Start at 13:24; Stop 09/13/16 at 13:25; Status DC Ondansetron HCl (Zofran) 4 mg STK-MED ONCE .ROUTE ; Start 09/13/16 at 13:24; Stop 09/13/16 at 13:25; Status DC Lidocaine HCl 100 mg STK-MED ONCE .ROUTE ; Start 09/13/16 at 13:24; Stop at 13:25; Status DC Succinylcholine Chloride (Anectine) 200 mg STK-MED ONCE .ROUTE ; Start 09/13/16 at 13:25; Stop 09/13/16 at 13:26; Status DC Rocuronium [place] 50 mg 50 mg STK-MED ONCE .ROUTE ; Start 09/13/16 at 13:25; Stop 09/13/16 at 13:26; Status DC Sodium Chloride/ Potassium Chloride/ Potassium Phosphate/ Magnesium Sulfate/ Calcium Gluconate/ Multivitamins/ Minerals/Chromium/ Copper/Manganese/ Seleni/Zn /Total Parenteral Nutrition/Amino Acids/Dextrose/ Fat Emulsion Intravenous ( Sodium Chloride/ Potassium Phospha... 1,512 ml @ 63 mls/hr TPN CONT IV Last administered on 09/13/16t 19:36; Start 09/13/16 at 22:00; Stop 09/14/16 at 21:59 ; Status DC Morphine Sulfate 1 mg 1 mg PRN Q10MIN PRN IV SEVERE PAIN; Start 09/13/16 at 15: 15; Stop 09/14/16 at 15:14; Status DC Lactated Ringer's (Iv Lactated Ringers) 1,000 ml @ 0 mls/hr Q0M IV ; Start at 15:11; Stop 09/14/16 at 03:10; Status DC Lidocaine HCl 2 ml 1X PRN PRN ID IV START; Start 09/13/16 at 15:15; Stop at 15:14; Status DC Hydromorphone HCl (Dilaudid) 0.5 mg PRN Q10MIN PRN IV SEV PAIN,Second choice Last administered on 09/13/16t 19:02; Start 09/13/16 at 15:15; Stop 09/14/16 at 15:14; Status DC Prochlorperazine Edisylate (Compazine) 5 mg PACU PRN PRN IV NAUSEA; Start 09/13 at 15:15; Stop 09/14/16 at 15:14; Status DC Rocuronium Hull (Zemuron) 50 mg STK-MED ONCE .ROUTE ; Start 09/13/16 at 15:43 ; Stop 09/13/16 at 15:44; Status DC Fentanyl Citrate (Fentanyl 2ml Vial) 100 mcg STK-MED ONCE .ROUTE ; Start at 17:27; Stop 09/13/16 at 17:28; Status DC Sevoflurane (Ultane) 90 ml STK-MED ONCE IH ; Start 09/13/16 at 17:47; Stop 09/13 at 17:48; Status DC Diphenhydramine HCl (Benadryl) 25 mg PRN Q6HRS PRN PO ITCHING; Start 09/13/16 at 18:00 Diphenhydramine HCl (Benadryl) 25 mg PRN Q6HRS PRN IV ITCHING; Start 09/13/16 at 18:00 Enoxaparin Sodium (Lovenox 40mg Syringe) 40 mg Q24H SQ ; Start 09/13/16 at 18:00 ; Status UNV Sodium Chloride 3 ml 3 ml QSHIFT PRN IV AFTER MEDS AND BLOOD DRAWS; Start 09/13 at 18:00 Hydromorphone HCl (Dilaudid Standard [employer]) 30 ml @ 0 mls/hr CONT PRN PRN IV PROTOCOL; Start 09/13/16 at 18:00; Stop 09/14/16 at 12:34; Status DC Ondansetron HCl (Zofran) 4 mg PRN Q6HRS PRN IV NAUESA, 1ST CHOICE; Start at 18:00; Status UNV Throat Lozenges (Chloraseptic) 1 spray PRN Q2HR PRN PO SORE THROAT Last administered on 09/14/16 11:39; Start 09/13/16 at 18:30 Throat Lozenges 1 nabila 1 nabila PRN Q2HRS PRN PO SORE THROAT Last administered on 14:26; Start 09/13/16 at 18:30 Sodium Chloride 180 meq/Potassium Chloride 10 meq/ Potassium Phosphate 6.8 mmol/ Magnesium Sulfate 10 meq/ Calcium Gluconate 10 meq/ Multivitamins/ Minerals 10 ml/ Chromium/Copper/ Manganese/Seleni/ Zn 1 ml/Total Parenteral Nutrition/Amino Acids/Dextrose/ Fat Emulsion Intravenous 1,512 ml @ 63 mls/hr TPN CONT IV Last administered on 09/14/16 21:36; Start 09/14/16 at 22:00; Stop 09/15/16 at 21:59; Status DC Sodium Chloride 180 meq/Potassium Chloride 10 meq/ Potassium Phosphate 6.8 mmol/ Magnesium Sulfate 10 meq/ Calcium Gluconate 10 meq/ Multivitamins/ Minerals 10 ml/ Chromium/Copper/ Manganese/Seleni/ Zn 1 ml/Total Parenteral Nutrition/Amino Acids/Dextrose/ Fat Emulsion Intravenous 1,512 ml @ 63 mls/hr TPN CONT IV Last administered on 09/15/16 21:59; Start 09/15/16 at 22:00; Stop 09/16/16 at 21:59; Status DC Sodium Chloride 180 meq/Potassium Chloride 10 meq/ Potassium Phosphate 6.8 mmol/ Magnesium Sulfate 10 meq/ Calcium Gluconate 10 meq/ Multivitamins/ Minerals 10 ml/ Chromium/Copper/ Manganese/Seleni/ Zn 1 ml/Total Parenteral Nutrition/Amino Acids/Dextrose/ Fat Emulsion Intravenous 1,512 ml @ 63 mls/hr TPN CONT IV Last administered on 09/16/16 21:37; Start 09/16/16 at 22:00; Stop 09/17/16 at 21:59 Sodium Chloride/ Potassium Chloride/ Potassium Phosphate/ Magnesium Sulfate/ Calcium Gluconate/ Multivitamins/ Minerals/Chromium/ Copper/Manganese/ Seleni/Zn /Total Parenteral Nutrition/Amino Acids/Dextrose/ Fat Emulsion Intravenous ( Sodium Chloride/ Potassium Phospha... 1,512 ml @ 63 mls/hr TPN CONT IV ; Start 09/17/16 at 22:00; Stop 09/18/16 at 21:59 Vitals/I & O Vital Sign - Last 24 Hours 09/16/16 09/16/16 09/16/16 09/16/16 11:00 11:33 15:00 17:21 Temp 99.5 99.2 99.5 99.2 Pulse 101 101 108 108 Resp 22 22 B/P 133/86 133/86 131/94 131/94 Pulse Ox 96 96 O2 Delivery Room Air Room Air 09/16/16 09/16/16 09/16/16 09/16/16 19:00 22:15 22:39 23:52 Temp 99.8 98.7 99.8 98.7 Pulse 114 130 128 Resp 18 18 18 B/P 155/98 126/98 Pulse Ox 95 94 O2 Delivery Room Air Room Air Room Air 09/17/16 09/17/16 09/17/16 09/17/16 02:34 05:33 05:59 07:00 Temp 98.9 98.6 98.9 98.6 Pulse 129 118 99 108 Resp 18 20 B/P 154/101 135/93 Pulse Ox 95 97 O2 Delivery Room Air Room Air 09/17/16 08:00 O2 Delivery Room Air Intake and Output 09/16/16 09/16/16 09/17/16 15:00 23:00 07:00 Intake Total 360 ml 200 ml Output Total 615 ml 245 ml Balance -255 ml -45 ml YUN AHN MD Sep 17, 2016 10:38
[2016-09-17] MEDS: ONDANSETRON PF 4 MG/2 ML VIAL. IV PRN (10:56)
[2016-09-17] MEDS: FLUCONAZOLE 400MG/200ML PREMIX 200 ML IV SCH (10:56)
[2016-09-17 11:00] VITALS: BP 130/87
--- NOTE | 2016-09-17 12:16 | PDOC ---
Infectious Disease Note Subjective Subjective Feeling better No fever lst 24 hours Pain controlled. [employer] pump TPN ROS ROS GEN: Denies chills, sweats CV: Denies chest pain RESP: Denies shortness of air, cough GI: Denies n/v/d Vital Sign Vital Signs Vital Signs Date Time Temp Pulse Resp B/P Pulse Ox O2 Delivery O2 Flow Rate FiO2 09/17/16 08:00 Room Air 09/17/16 07:00 98.6 108 20 135/93 97 98.6 Physical Exam PHYSICAL EXAM GENERAL: Propped up in bed, relaxed appearance, NAD HEENT: Oral cavity pink. No lesions. NECK: Supple LUNGS: Clear HEART: S1S2, no gallop, no murmur ABD: Distended, soft, mild tender to palpation. Incision bandaged, dry. Drains intact. 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 clean Labs Micro 09/13. abdomen abscess ANAEROBIC-AEROBIC CULTURE PENDING ANAEROBIC RES 1 PENDING AEROBIC CULT Preliminary Preliminary report AEROBIC RES 1 Preliminary Mixed skin pat Scant growth AEROBIC RES 2 Preliminary Gram negative rods Objective Assessment Fever Leukocytosis. better Diverticulitis Perforated viscous -on Zosyn initially but changed to Meropenem 09/04 -s/p Exp lap, VANESSA, appendectomy, right proctoscopy and drain, 09/13. E. coli Intra-abdominal abscesses - s/p [address] 09/04 - E. coli x 2 spp, Strep anginosis & bacteroides. Plan Plan of Care Meropenem and fluconazole am labs Monitor temp Attending Co-Sign The patient was seen and interviewed as well as examined at the bedside. The chart was reviewed. The case was discussed. Agree with the plan of care. JOHAN MEYER APRN Sep 17, 2016 12:16 [place] JACOBSON MD Sep 17, 2016 12:43
[2016-09-17] MEDS: ENOXAPARIN 40 MG/0.4 ML DISP.SYRIN. SQ SCH (12:23)
--- NOTE | 2016-09-17 12:33 | PDOC ---
Provider Note Provider Note n/v today. afeb vss abd soft nd nt inc cdi a/p n/v. will make npo. EDDIE PATEL MD Sep 17, 2016 12:33
[2016-09-17 15:00] VITALS: BP 135/93
[2016-09-17 21:39] VITALS: BP 142/102
[2016-09-17] MEDS ORDERED: DEXTROSE 70% IV SCH ×10 (22:00)
[2016-09-17] MEDS ORDERED: [UNRECOGNIZED DRUG - OTHER] IV SCH ×10 (22:00)
[2016-09-17] MEDS ORDERED: TOTAL PARENTERAL NUTRITION IV SCH ×10 (22:00)
[2016-09-17] MEDS ORDERED: AMINO ACIDS IV SCH ×10 (22:00)
[2016-09-17 23:00] VITALS: BP 135/85
[2016-09-18] MEDS: METOPROLOL TARTRATE 5 MG/5 ML VIAL. IVP SCH ×4 (00:14→18:03)
[2016-09-18 03:00] VITALS: BP 136/96
[2016-09-18] MEDS: MEROPENEM 1 GM in IV NORMAL SALINE 100ML 100 ML IV SCH ×3 (05:36→22:21)
[2016-09-18 07:00] VITALS: BP 135/93
[2016-09-18 07:00] LABS: BASO # 0.1 x10^3/uL (0.0-0.2); BASO % 1 % (0-3); EOS % 1 % (0-3); HEMATOCRIT 27.2 % (39.0-53.0); LYMPH # 1.7 x10^3/uL (1.0-4.8); LYMPH % 16 % (24-48); MEAN CORPUSCULAR HEMOGLOBIN 30 pg (25-35); MEAN CORPUSCULAR HGB CONC 33 g/dL (31-37); MEAN CORPUSCULAR VOLUME 90 fL (79-100); MONO % 6 % (0-9); NEUT % 76 % (31-73); PLATELET COUNT 310 x10^3/uL (140-400); RED BLOOD COUNT 3.02 x10^6/uL (4.30-5.70); RED CELL DISTRIBUTION WIDTH 13.1 % (11.5-14.5); WHITE BLOOD COUNT 10.7 x10^3/uL (4.0-11.0)
[2016-09-18 07:14] LABS: PHOSPHORUS 3.3 mg/dL (2.6-4.7)
[2016-09-18 07:17] LABS: ALBUMIN 2.1 g/dL (3.4-5.0); ALBUMIN/GLOBULIN RATIO 0.5 (1.0-1.7); CALCIUM 8.3 mg/dL (8.5-10.1); CREATININE 0.6 mg/dL (0.7-1.3); GFR 173.6; POTASSIUM 3.7 mmol/L (3.5-5.1); TOTAL PROTEIN 6.3 g/dL (6.4-8.2)
--- NOTE | 2016-09-18 08:57 | PDOC ---
PROGRESS NOTES Chief Complaint Chief Complaint Abdominal pain ASSESSMENT AND PLAN: 1. Abdominal abscess w/ perforated viscus: s/p drain placements 09/04, 09/11; s/ p rigid proctoscopy, exploratory laparotomy, VANESSA, appendectomy 09/13. on Diflucan and merrem 2. pain control: dilaudid VENIPUNCTURIST 3. Sepsis: Ecoli/Strep anginosis (09/04) 4. Severe malnutrition: TPN 5. Dehydration: resolved, on IVF/TPN 6. Tachycardia: persistent 7. DVT prophylaxis: Lovenox Vitals Vitals Vital Signs Date Time Temp Pulse Resp B/P Pulse Ox O2 Delivery O2 Flow Rate FiO2 09/18/16 05:16 93 09/18/16 03:00 98.8 18 136/96 100 98.8 09/17/16 15:00 Room Air 2.0 Physical Exam Physical Exam flat affect General: Alert, Oriented X3, Cooperative, No acute distress Heart: Normal S1, Normal S2, No murmurs, Other (Sinus tach) Lungs: Clear Abdomen: Soft, Other ([place] R with serosanguinous fluid; drain to suction L) Extremities: No cyanosis, No edema Skin: No rashes Labs LABS Laboratory Tests Test 09/18/16 06:30 White Blood Count 10.7x10^3/uL (4.0-11.0) Red Blood Count 3.02x10^6/uL (4.30-5.70) Hemoglobin 9.0g/dL (13.0-17.5) Hematocrit 27.2% (39.0-53.0) Mean Corpuscular Volume 90fL (79-100) Mean Corpuscular Hemoglobin 30pg (25-35) Mean Corpuscular Hemoglobin Concent 33g/dL (31-37) Red Cell Distribution Width 13.1% (11.5-14.5) Platelet Count 310x10^3/uL (140-400) Neutrophils (%) (Auto) 76% (31-73) Lymphocytes (%) (Auto) 16% (24-48) Monocytes (%) (Auto) 6% (0-9) Eosinophils (%) (Auto) 1% (0-3) Basophils (%) (Auto) 1% (0-3) Neutrophils # (Auto) 8.2x10^3uL (1.8-7.7) Lymphocytes # (Auto) 1.7x10^3/uL (1.0-4.8) Monocytes # (Auto) 0.7x10^3/uL (0.0-1.1) Eosinophils # (Auto) 0.1x10^3/uL (0.0-0.7) Basophils # (Auto) 0.1x10^3/uL (0.0-0.2) Sodium Level 137mmol/L (136-145) Potassium Level 3.7mmol/L (3.5-5.1) Chloride Level 100mmol/L (98-107) Carbon Dioxide Level 28mmol/L (21-32) Anion Gap 9 (6-14) Blood Urea Nitrogen 7mg/dL (8-26) Creatinine 0.6mg/dL (0.7-1.3) Estimated GFR (Cockcroft-Gault) 173.6 BUN/Creatinine Ratio 12 (6-20) Glucose Level 137mg/dL (70-99) Calcium Level 8.3mg/dL (8.5-10.1) Phosphorus Level 3.3mg/dL (2.6-4.7) Magnesium Level 2.0mg/dL (1.8-2.4) Total Bilirubin 1.0mg/dL (0.2-1.0) Aspartate Amino Transf (AST/SGOT) 21U/L (15-37) Alanine Aminotransferase (ALT/SGPT) 52U/L (16-63) Alkaline Phosphatase 146U/L (46-116) Total Protein 6.3g/dL (6.4-8.2) Albumin 2.1g/dL (3.4-5.0) Albumin/Globulin Ratio 0.5 (1.0-1.7) Review of Systems Review of Systems pain well controlled. no c/o Comment Review of Relevant I have reviewed the following items crystal (where applicable) has been applied. Labs Laboratory Tests Test 09/18/16 06:30 White Blood Count 10.7x10^3/uL (4.0-11.0) Red Blood Count 3.02x10^6/uL (4.30-5.70) Hemoglobin 9.0g/dL (13.0-17.5) Hematocrit 27.2% (39.0-53.0) Mean Corpuscular Volume 90fL (79-100) Mean Corpuscular Hemoglobin 30pg (25-35) Mean Corpuscular Hemoglobin Concent 33g/dL (31-37) Red Cell Distribution Width 13.1% (11.5-14.5) Platelet Count 310x10^3/uL (140-400) Neutrophils (%) (Auto) 76% (31-73) Lymphocytes (%) (Auto) 16% (24-48) Monocytes (%) (Auto) 6% (0-9) Eosinophils (%) (Auto) 1% (0-3) Basophils (%) (Auto) 1% (0-3) Neutrophils # (Auto) 8.2x10^3uL (1.8-7.7) Lymphocytes # (Auto) 1.7x10^3/uL (1.0-4.8) Monocytes # (Auto) 0.7x10^3/uL (0.0-1.1) Eosinophils # (Auto) 0.1x10^3/uL (0.0-0.7) Basophils # (Auto) 0.1x10^3/uL (0.0-0.2) Sodium Level 137mmol/L (136-145) Potassium Level 3.7mmol/L (3.5-5.1) Chloride Level 100mmol/L (98-107) Carbon Dioxide Level 28mmol/L (21-32) Anion Gap 9 (6-14) Blood Urea Nitrogen 7mg/dL (8-26) Creatinine 0.6mg/dL (0.7-1.3) Estimated GFR (Cockcroft-Gault) 173.6 BUN/Creatinine Ratio 12 (6-20) Glucose Level 137mg/dL (70-99) Calcium Level 8.3mg/dL (8.5-10.1) Phosphorus Level 3.3mg/dL (2.6-4.7) Magnesium Level 2.0mg/dL (1.8-2.4) Total Bilirubin 1.0mg/dL (0.2-1.0) Aspartate Amino Transf (AST/SGOT) 21U/L (15-37) Alanine Aminotransferase (ALT/SGPT) 52U/L (16-63) Alkaline Phosphatase 146U/L (46-116) Total Protein 6.3g/dL (6.4-8.2) Albumin 2.1g/dL (3.4-5.0) Albumin/Globulin Ratio 0.5 (1.0-1.7) Laboratory Tests Test 09/18/16 06:30 White Blood Count 10.7x10^3/uL (4.0-11.0) Red Blood Count 3.02x10^6/uL (4.30-5.70) Hemoglobin 9.0g/dL (13.0-17.5) Hematocrit 27.2% (39.0-53.0) Mean Corpuscular Volume 90fL (79-100) Mean Corpuscular Hemoglobin 30pg (25-35) Mean Corpuscular Hemoglobin Concent 33g/dL (31-37) Red Cell Distribution Width 13.1% (11.5-14.5) Platelet Count 310x10^3/uL (140-400) Neutrophils (%) (Auto) 76% (31-73) Lymphocytes (%) (Auto) 16% (24-48) Monocytes (%) (Auto) 6% (0-9) Eosinophils (%) (Auto) 1% (0-3) Basophils (%) (Auto) 1% (0-3) Neutrophils # (Auto) 8.2x10^3uL (1.8-7.7) Lymphocytes # (Auto) 1.7x10^3/uL (1.0-4.8) Monocytes # (Auto) 0.7x10^3/uL (0.0-1.1) Eosinophils # (Auto) 0.1x10^3/uL (0.0-0.7) Basophils # (Auto) 0.1x10^3/uL (0.0-0.2) Sodium Level 137mmol/L (136-145) Potassium Level 3.7mmol/L (3.5-5.1) Chloride Level 100mmol/L (98-107) Carbon Dioxide Level 28mmol/L (21-32) Anion Gap 9 (6-14) Blood Urea Nitrogen 7mg/dL (8-26) Creatinine 0.6mg/dL (0.7-1.3) Estimated GFR (Cockcroft-Gault) 173.6 BUN/Creatinine Ratio 12 (6-20) Glucose Level 137mg/dL (70-99) Calcium Level 8.3mg/dL (8.5-10.1) Phosphorus Level 3.3mg/dL (2.6-4.7) Magnesium Level 2.0mg/dL (1.8-2.4) Total Bilirubin 1.0mg/dL (0.2-1.0) Aspartate Amino Transf (AST/SGOT) 21U/L (15-37) Alanine Aminotransferase (ALT/SGPT) 52U/L (16-63) Alkaline Phosphatase 146U/L (46-116) Total Protein 6.3g/dL (6.4-8.2) Albumin 2.1g/dL (3.4-5.0) Albumin/Globulin Ratio 0.5 (1.0-1.7) Microbiology 08/30/16 Blood Culture - Final, Complete NO GROWTH AFTER 5 DAYS 09/11/16 Gram Stain - Final, Complete 08/30/16 Urine Culture - Final, Complete 08/30/16 Urine Culture Result 1 (TOAN) - Final, Complete 09/13/16 Gram Stain - Final, Complete Medications Current Medications Sodium Chloride (Iv Sodium Chloride 0.9% 1000ml Bag) 1,000 ml @ 1,000 mls/hr Q1H IV Last administered on 08/30/16 19:58; Start 08/30/16 at 19:45; Stop 07/06 at 20:44; Status DC Morphine Sulfate 4 mg 1X ONCE IV Last administered on 08/30/16 19:58; Start 08/30/16 at 19:45; Stop 08/30/16 at 19:46; Status DC Ondansetron HCl (Zofran) 4 mg 1X ONCE IV Last administered on 08/30/16 19:57 ; Start 08/30/16 at 19:45; Stop 08/30/16 at 19:46; Status DC Iohexol (Omnipaque 300 Mg/ml) 75 ml 1X ONCE IV Last administered on 08/30/16 20:57; Start 08/30/16 at 20:00; Stop 08/30/16 at 20:01; Status DC Morphine Sulfate 4 mg 1X ONCE IV Last administered on 08/30/16 22:22; Start 08/30/16 at 21:45; Stop 08/30/16 at 21:46; Status DC Piperacillin Sod/ Tazobactam Sod 1 each 1 each PRN DAILY PRN MC SEE COMMENTS; Start 08/30/16 at 21:45; Stop 09/02/16 at 13:43; Status DC Piperacillin Sod/ Tazobactam Sod/ Sodium Chloride (Zosyn/Iv Sodium Chloride 0.9 % 50ml) 50 ml @ 100 mls/hr Q6HRS IV Last administered on 09/04/16 05:07; Start 08/30/16 at 22:00; Stop 09/04/16 at 10:30; Status DC Ondansetron HCl (Zofran) 4 mg PRN Q8HRS PRN IV NAUSEA/VOMITING; Start 08/30/16 at 22:30; Stop 08/31/16 at 22:29; Status DC Morphine Sulfate 4 mg 4 mg PRN Q2HR PRN IV PAIN Last administered on 08/30/16 23:16; Start 08/30/16 at 22:30; Stop 08/31/16 at 22:29; Status DC Sodium Chloride (Iv Sodium Chloride 0.9% 1000ml Bag) 1,000 ml @ 125 mls/hr Q8H IV Last administered on 08/31/16 09:13; Start 08/30/16 at 22:30; Stop at 13:05; Status DC Acetaminophen 650 mg 650 mg PRN Q4HRS PRN PO FEVER Last administered on 23:15; Start 08/30/16 at 22:30; Stop 08/31/16 at 22:29; Status DC Hydromorphone HCl 30 ml @ 0 mls/hr CONT PRN PRN IV PROTOCOL Last administered on 09/16/16 22:15; Start 08/30/16 at 23:30 Potassium Chloride/Dextrose/ Sod Cl 1,000 ml @ 100 mls/hr Q10H IV Last administered on 09/01/16 03:52; Start 08/31/16 at 13:15; Stop 09/01/16 at 14:37 ; Status DC Sodium Chloride 1,000 ml @ 1,000 mls/hr 1X ONCE IV Last administered on 14:24; Start 08/31/16 at 13:15; Stop 08/31/16 at 14:14; Status DC Albumin Human (Plasmanate) 500 ml @ 125 mls/hr 1X ONCE IV Last administered on 08/31/16 17:21; Start 08/31/16 at 17:00; Stop 08/31/16 at 20:59; Status DC Ondansetron HCl 4 mg 4 mg PRN Q6HRS PRN IV NAUSEA/VOMITING Last administered on 09/17/16 10:56; Start 08/31/16 at 22:45 Amino Acids/ Glycerin/ Electrolytes (Procalamine) 1,000 ml @ 100 mls/hr Q10H IV Last administered on 09/05/16 10:00; Start 09/01/16 at 14:45; Stop at 21:59; Status DC Acetaminophen (Tylenol) 650 mg PRN Q4HRS PRN DE MILD PAIN / TEMP Last administered on 09/13/16 06:14; Start 09/01/16 at 20:30 Lorazepam (Ativan) 1 mg PRN Q4HRS PRN IV ANXIETY / AGITATION Last administered on 09/13/16 20:24; Start 09/02/16 at 10:30 Saliva Substitute (Biotene Moisturizing Mouth) 2 spray PRN Q15MIN PRN PO DRY MOUTH Last administered on 09/02/16 18:13; Start 09/02/16 at 10:30 Iohexol (Omnipaque 240 Mg/ml) 30 ml 1X ONCE PO Last administered on 09/03/16 10:18; Start 09/03/16 at 09:00; Stop 09/03/16 at 09:01; Status DC Iohexol (Omnipaque 300 Mg/ml) 75 ml 1X ONCE IV Last administered on 09/03/16 10:18; Start 09/03/16 at 09:00; Stop 09/03/16 at 09:01; Status DC Info (Do NOT chart on this entry -- for MONITORING) 1 each PRN DAILY PRN MC SEE COMMENTS; Start 09/03/16 at 08:45; Stop 09/05/16 at 08:44; Status DC Info 1 each PRN DAILY PRN MC SEE COMMENTS Last administered on 09/17/16 09:54 ; Start 09/04/16 at 15:00 Midazolam HCl (Versed) 5 mg STK-MED ONCE .ROUTE ; Start 09/04/16 at 09:54; Stop 09/04/16 at 09:55; Status DC Fentanyl Citrate (Fentanyl 5ml Vial) 250 mcg STK-MED ONCE .ROUTE ; Start at 09:54; Stop 09/04/16 at 09:55; Status DC Lidocaine/Sodium Bicarbonate 20 ml 20 ml STK-MED ONCE IJ ; Start 09/04/16 at 09: 55; Stop 09/04/16 at 09:56; Status DC Meropenem 1 gm/ Sodium Chloride 100 ml @ 200 mls/hr Q8HRS IV Last administered on 09/18/16 05:36; Start 09/04/16 at 14:00 Fluconazole/ Sodium Chloride (Diflucan 400mg/ 200ml Premix) 200 ml @ 100 mls/ hr Q24H IV Last administered on 09/17/16 10:56; Start 09/04/16 at 11:00 Lidocaine/Sodium Bicarbonate (Buffered Lidocaine 1%) 3 ml 1X ONCE IJ Last administered on 09/04/16 10:49; Start 09/04/16 at 10:45; Stop 09/04/16 at 10:48 ; Status DC Midazolam HCl (Versed) 0.5 mg 1X ONCE IV Last administered on 09/04/16 10:50 ; Start 09/04/16 at 10:45; Stop 09/04/16 at 10:48; Status DC Fentanyl Citrate 100 mcg 100 mcg 1X ONCE IV Last administered on 09/04/16 10: 50; Start 09/04/16 at 10:45; Stop 09/04/16 at 10:48; Status DC Sodium Chloride 90 meq/Potassium Chloride 50 meq/ Potassium Phosphate 13.6 mmol/ Magnesium Sulfate 10 meq/ Calcium Gluconate 10 meq/ Multivitamins/ Minerals 10 ml/ Chromium/Copper/ Manganese/Seleni/ Zn 1 ml/Total Parenteral Nutrition/Amino Acids/Dextrose/ Fat Emulsion Intravenous 1,512 ml @ 63 mls/hr TPN CONT IV Last administered on 09/05/16 20:50; Start 09/05/16 at 22:00; Stop 09/06/16 at 21:59; Status DC Levofloxacin/ Dextrose 150 ml @ 100 mls/hr 1X ONCE IV Last administered on 09:00; Start 09/06/16 at 09:00; Stop 09/06/16 at 10:29; Status DC Sodium Chloride/ Potassium Chloride/ Potassium Phosphate/ Magnesium Sulfate/ Calcium Gluconate/ Multivitamins/ Minerals/Chromium/ Copper/Manganese/ Seleni/Zn /Total Parenteral Nutrition/Amino Acids/Dextrose/ Fat Emulsion Intravenous ( Sodium Chloride/ Potassium Phospha... 1,512 ml @ 63 mls/hr TPN CONT IV Last administered on 09/06/16 21:49; Start 09/06/16 at 22:00; Stop 09/07/16 at 21:59 ; Status DC Alteplase, Recombinant (Cathflo) 2 mg 1X ONCE INT CAT Last administered on 20:43; Start 09/07/16 at 10:00; Stop 09/07/16 at 10:01; Status DC Vancomycin HCl (Vanco Per Pharmacy) 1 each PRN DAILY PRN MC SEE COMMENTS Last administered on 09/08/16 16:02; Start 09/07/16 at 10:30; Stop 09/11/16 at 10:23 ; Status DC Gentamicin Sulfate 1 each 1 each PRN DAILY PRN MC SEE COMMENTS; Start 09/07/16 at 10:15; Stop 09/07/16 at 13:00; Status DC Vancomycin HCl 2 gm/Sodium Chloride 500 ml @ 250 mls/hr 1X ONCE IV Last administered on 09/07/16 14:58; Start 09/07/16 at 11:00; Stop 09/07/16 at 12:59 ; Status DC Gentamicin Sulfate 500 mg/ Sodium Chloride 112.5 ml @ 112.5 mls/ hr 1X ONCE IV Last administered on 09/07/16 12:52; Start 09/07/16 at 11:00; Stop at 11:59; Status DC Sodium Chloride 90 meq/Potassium Chloride 50 meq/ Potassium Phosphate 13.6 mmol/ Magnesium Sulfate 10 meq/ Calcium Gluconate 10 meq/ Multivitamins/ Minerals 10 ml/ Chromium/Copper/ Manganese/Seleni/ Zn 1 ml/Total Parenteral Nutrition/Amino Acids/Dextrose/ Fat Emulsion Intravenous 1,512 ml @ 63 mls/hr TPN CONT IV Last administered on 09/07/16 21:41; Start 09/07/16 at 22:00; Stop 09/08/16 at 21:59; Status DC Vancomycin HCl/ Sodium Chloride (Iv Sodium Chloride 0.9% 250ml) 250 ml @ 167 mls/hr Q8H IV Last administered on 09/08/16 05:39; Start 09/07/16 at 23:00; Stop 09/08/16 at 15:54; Status DC Vancomycin HCl 1 each 1 each 1X ONCE MC Last administered on 09/08/16 14:30; Start 09/08/16 at 14:30; Stop 09/08/16 at 14:31; Status DC Sodium Chloride/ Potassium Chloride/ Potassium Phosphate/ Magnesium Sulfate/ Calcium Gluconate/ Multivitamins/ Minerals/Chromium/ Copper/Manganese/ Seleni/Zn /Total Parenteral Nutrition/Amino Acids/Dextrose/ Fat Emulsion Intravenous ( Sodium Chloride/ Potassium Phospha... 1,512 ml @ 63 mls/hr TPN CONT IV Last administered on 09/08/16 22:23; Start 09/08/16 at 22:00; Stop 09/09/16 at 21:59 ; Status DC Pantoprazole Sodium 40 mg 40 mg DAILYAC IVP Last administered on 09/17/16 07: 39; Start 09/08/16 at 15:00 Vancomycin HCl 1.25 gm/Sodium Chloride 250 ml @ 167 mls/hr Q6HRS IV Last administered on 09/11/16 06:14; Start 09/08/16 at 17:00; Stop 09/11/16 at 10:23 ; Status DC Sodium Chloride 120 meq/Potassium Chloride 50 meq/ Potassium Phosphate 13.6 mmol /Magnesium Sulfate 10 meq/ Calcium Gluconate 10 meq/ Multivitamins/ Minerals 10 ml/ Chromium/Copper/ Manganese/Seleni/ Zn 1 ml/Total Parenteral Nutrition/Amino Acids/Dextrose/ Fat Emulsion Intravenous 1,512 ml @ 63 mls/hr TPN CONT IV Last administered on 09/09/16 22:37; Start 09/09/16 at 22:00; Stop 09/10/16 at 21:59; Status DC Sodium Chloride/ Potassium Chloride/ Potassium Phosphate/ Magnesium Sulfate/ Calcium Gluconate/ Multivitamins/ Minerals/Chromium/ Copper/Manganese/ Seleni/Zn /Total Parenteral Nutrition/Amino Acids/Dextrose/ Fat Emulsion Intravenous ( Sodium Chloride/ Potassium Phospha... 1,512 ml @ 63 mls/hr TPN CONT IV Last administered on 09/10/16 21:57; Start 09/10/16 at 22:00; Stop 09/11/16 at 21:59 ; Status DC Iohexol (Omnipaque 240 Mg/ml) 30 ml 1X ONCE PO Last administered on 09/10/16 14:15; Start 09/10/16 at 14:15; Stop 09/10/16 at 14:21; Status DC Iohexol (Omnipaque 300 Mg/ml) 75 ml 1X ONCE IV Last administered on 09/10/16 15:41; Start 09/10/16 at 14:15; Stop 09/10/16 at 14:21; Status DC Info (Do NOT chart on this entry -- for MONITORING) 1 each PRN DAILY PRN MC SEE COMMENTS; Start 09/10/16 at 14:30; Stop 09/12/16 at 14:29; Status DC Lidocaine/Sodium Bicarbonate (Buffered Lidocaine 1%) 20 ml STK-MED ONCE IJ ; Start 09/11/16 at 13:02; Stop 09/11/16 at 13:03; Status DC Fentanyl Citrate (Fentanyl 2ml Vial) 100 mcg STK-MED ONCE .ROUTE ; Start at 13:20; Stop 09/11/16 at 13:21; Status DC Midazolam HCl 5 mg 5 mg STK-MED ONCE .ROUTE ; Start 09/11/16 at 13:20; Stop at 13:21; Status DC Sodium Chloride/ Potassium Chloride/ Potassium Phosphate/ Magnesium Sulfate/ Calcium Gluconate/ Multivitamins/ Minerals/Chromium/ Copper/Manganese/ Seleni/Zn /Total Parenteral Nutrition/Amino Acids/Dextrose/ Fat Emulsion Intravenous ( Sodium Chloride/ Potassium Phospha... 1,512 ml @ 63 mls/hr TPN CONT IV Last administered on 09/11/16 21:06; Start 09/11/16 at 22:00; Stop 09/12/16 at 21:59 ; Status DC Lidocaine/Sodium Bicarbonate (Buffered Lidocaine 1%) 20 ml 1X ONCE IJ Last administered on 09/11/16 14:00; Start 09/11/16 at 14:00; Stop 09/11/16 at 14:01 ; Status DC Midazolam HCl (Versed) 5 mg 1X ONCE IV Last administered on 09/11/16 14:00; Start 09/11/16 at 14:00; Stop 09/11/16 at 14:01; Status DC Fentanyl Citrate (Fentanyl 2ml Vial) 100 mcg 1X ONCE IV Last administered on 14:00; Start 09/11/16 at 14:00; Stop 09/11/16 at 14:01; Status DC Metoprolol Tartrate 5 mg 5 mg Q6HRS IVP Last administered on 09/17/16 17:23; Start 09/11/16 at 22:00 Dextrose/Sodium Chloride (Iv D5% - NS) 1,000 ml @ 125 mls/hr 1X ONCE IV Last administered on 09/12/16 10:29; Start 09/12/16 at 10:30; Stop 09/12/16 at 18:29 ; Status DC Enoxaparin Sodium 40 mg 40 mg Q24H SQ Last administered on 09/17/16 12:23; Start 09/12/16 at 13:00 Sodium Chloride 1,000 ml @ 75 mls/hr 1X ONCE IV Last administered on 21:27; Start 09/12/16 at 12:00; Stop 09/13/16 at 01:19; Status DC Sodium Chloride/ Potassium Chloride/ Potassium Phosphate/ Magnesium Sulfate/ Calcium Gluconate/ Multivitamins/ Minerals/Chromium/ Copper/Manganese/ Seleni/Zn /Total Parenteral Nutrition/Amino Acids/Dextrose/ Fat Emulsion Intravenous ( Sodium Chloride/ Potassium Phospha... 1,512 ml @ 63 mls/hr TPN CONT IV Last administered on 09/12/16 19:52; Start 09/12/16 at 22:00; Stop 09/13/16 at 21:59 ; Status DC Desflurane (Suprane) 90 ml STK-MED ONCE IH ; Start 09/13/16 at 13:23; Stop 09/13 at 13:24; Status DC Fentanyl Citrate (Fentanyl 2ml Vial) 100 mcg STK-MED ONCE .ROUTE ; Start at 13:23; Stop 09/13/16 at 13:24; Status DC Midazolam HCl (Versed) 2 mg STK-MED ONCE .ROUTE ; Start 09/13/16 at 13:23; Stop 09/13/16 at 13:24; Status DC Glycopyrrolate (Robinul) 1 mg STK-MED ONCE .ROUTE ; Start 09/13/16 at 13:23; Stop 09/13/16 at 13:24; Status DC Neostigmine Methylsulfate 5 mg 5 mg STK-MED ONCE .ROUTE ; Start 09/13/16 at 13: 23; Stop 09/13/16 at 13:24; Status DC Propofol (Diprivan) 20 ml @ As Directed STK-MED ONCE IV ; Start 09/13/16 at 13: 24; Stop 09/13/16 at 13:25; Status DC Dexamethasone Sodium Phosphate (Decadron) 20 mg STK-MED ONCE .ROUTE ; Start at 13:24; Stop 09/13/16 at 13:25; Status DC Ketorolac Tromethamine (Toradol For Or Only) 30 mg STK-MED ONCE INJ ; Start at 13:24; Stop 09/13/16 at 13:25; Status DC Ondansetron HCl (Zofran) 4 mg STK-MED ONCE .ROUTE ; Start 09/13/16 at 13:24; Stop 09/13/16 at 13:25; Status DC Lidocaine HCl 100 mg STK-MED ONCE .ROUTE ; Start 09/13/16 at 13:24; Stop at 13:25; Status DC Succinylcholine Chloride (Anectine) 200 mg STK-MED ONCE .ROUTE ; Start 09/13/16 at 13:25; Stop 09/13/16 at 13:26; Status DC Rocuronium [place] 50 mg 50 mg STK-MED ONCE .ROUTE ; Start 09/13/16 at 13:25; Stop 09/13/16 at 13:26; Status DC Sodium Chloride/ Potassium Chloride/ Potassium Phosphate/ Magnesium Sulfate/ Calcium Gluconate/ Multivitamins/ Minerals/Chromium/ Copper/Manganese/ Seleni/Zn /Total Parenteral Nutrition/Amino Acids/Dextrose/ Fat Emulsion Intravenous ( Sodium Chloride/ Potassium Phospha... 1,512 ml @ 63 mls/hr TPN CONT IV Last administered on 09/13/16t 19:36; Start 09/13/16 at 22:00; Stop 09/14/16 at 21:59 ; Status DC Morphine Sulfate 1 mg 1 mg PRN Q10MIN PRN IV SEVERE PAIN; Start 09/13/16 at 15: 15; Stop 09/14/16 at 15:14; Status DC Lactated Ringer's (Iv Lactated Ringers) 1,000 ml @ 0 mls/hr Q0M IV ; Start at 15:11; Stop 09/14/16 at 03:10; Status DC Lidocaine HCl 2 ml 1X PRN PRN ID IV START; Start 09/13/16 at 15:15; Stop at 15:14; Status DC Hydromorphone HCl (Dilaudid) 0.5 mg PRN Q10MIN PRN IV SEV PAIN,Second choice Last administered on 09/13/16t 19:02; Start 09/13/16 at 15:15; Stop 09/14/16 at 15:14; Status DC Prochlorperazine Edisylate (Compazine) 5 mg PACU PRN PRN IV NAUSEA; Start 09/13 at 15:15; Stop 09/14/16 at 15:14; Status DC Rocuronium [place] (Zemuron) 50 mg STK-MED ONCE .ROUTE ; Start 09/13/16 at 15:43 ; Stop 09/13/16 at 15:44; Status DC Fentanyl Citrate (Fentanyl 2ml Vial) 100 mcg STK-MED ONCE .ROUTE ; Start at 17:27; Stop 09/13/16 at 17:28; Status DC Sevoflurane (Ultane) 90 ml STK-MED ONCE IH ; Start 09/13/16 at 17:47; Stop 09/13 at 17:48; Status DC Diphenhydramine HCl (Benadryl) 25 mg PRN Q6HRS PRN PO ITCHING; Start 09/13/16 at 18:00 Diphenhydramine HCl (Benadryl) 25 mg PRN Q6HRS PRN IV ITCHING; Start 09/13/16 at 18:00 Enoxaparin Sodium (Lovenox 40mg Syringe) 40 mg Q24H SQ ; Start 09/13/16 at 18:00 ; Status UNV Sodium Chloride 3 ml 3 ml QSHIFT PRN IV AFTER MEDS AND BLOOD DRAWS; Start 09/13 at 18:00 Hydromorphone HCl (Dilaudid Standard VENIPUNCTURIST) 30 ml @ 0 mls/hr CONT PRN PRN IV PROTOCOL; Start 09/13/16 at 18:00; Stop 09/14/16 at 12:34; Status DC Ondansetron HCl (Zofran) 4 mg PRN Q6HRS PRN IV NAUESA, 1ST CHOICE; Start at 18:00; Status UNV Throat Lozenges (Chloraseptic) 1 spray PRN Q2HR PRN PO SORE THROAT Last administered on 09/14/16 11:39; Start 09/13/16 at 18:30 Throat Lozenges 1 nabila 1 nabila PRN Q2HRS PRN PO SORE THROAT Last administered on 14:26; Start 09/13/16 at 18:30 Sodium Chloride 180 meq/Potassium Chloride 10 meq/ Potassium Phosphate 6.8 mmol/ Magnesium Sulfate 10 meq/ Calcium Gluconate 10 meq/ Multivitamins/ Minerals 10 ml/ Chromium/Copper/ Manganese/Seleni/ Zn 1 ml/Total Parenteral Nutrition/Amino Acids/Dextrose/ Fat Emulsion Intravenous 1,512 ml @ 63 mls/hr TPN CONT IV Last administered on 09/14/16 21:36; Start 09/14/16 at 22:00; Stop 09/15/16 at 21:59; Status DC Sodium Chloride 180 meq/Potassium Chloride 10 meq/ Potassium Phosphate 6.8 mmol/ Magnesium Sulfate 10 meq/ Calcium Gluconate 10 meq/ Multivitamins/ Minerals 10 ml/ Chromium/Copper/ Manganese/Seleni/ Zn 1 ml/Total Parenteral Nutrition/Amino Acids/Dextrose/ Fat Emulsion Intravenous 1,512 ml @ 63 mls/hr TPN CONT IV Last administered on 09/15/16 21:59; Start 09/15/16 at 22:00; Stop 09/16/16 at 21:59; Status DC Sodium Chloride 180 meq/Potassium Chloride 10 meq/ Potassium Phosphate 6.8 mmol/ Magnesium Sulfate 10 meq/ Calcium Gluconate 10 meq/ Multivitamins/ Minerals 10 ml/ Chromium/Copper/ Manganese/Seleni/ Zn 1 ml/Total Parenteral Nutrition/Amino Acids/Dextrose/ Fat Emulsion Intravenous 1,512 ml @ 63 mls/hr TPN CONT IV Last administered on 09/16/16 21:37; Start 09/16/16 at 22:00; Stop 09/17/16 at 21:59; Status DC Sodium Chloride/ Potassium Chloride/ Potassium Phosphate/ Magnesium Sulfate/ Calcium Gluconate/ Multivitamins/ Minerals/Chromium/ Copper/Manganese/ Seleni/Zn /Total Parenteral Nutrition/Amino Acids/Dextrose/ Fat Emulsion Intravenous ( Sodium Chloride/ Potassium Phospha... 1,512 ml @ 63 mls/hr TPN CONT IV Last administered on 09/17/16t 21:46; Start 09/17/16 at 22:00; Stop 09/18/16 at 21:59 Vitals/I & O Vital Sign - Last 24 Hours 09/17/16 09/17/16 09/17/16 09/17/16 11:00 12:23 15:00 17:23 Temp 98.9 98.9 98.9 98.9 Pulse 82 108 108 108 Resp 18 B/P 130/87 135/93 135/93 135/93 Pulse Ox 96 96 O2 Delivery Room Air Room Air O2 Flow Rate 2.0 09/17/16 09/17/16 09/18/16 09/18/16 21:39 23:00 00:14 03:00 Temp 98.6 98.8 98.8 98.6 98.8 98.8 Pulse 107 99 88 100 Resp 18 18 18 B/P 142/102 135/85 136/96 Pulse Ox 96 99 100 09/18/16 05:16 Pulse 93 Intake and Output 09/17/16 09/17/16 09/18/16 15:00 23:00 07:00 Intake Total 780 ml 0 ml Output Total 200 ml 45 ml 6 ml Balance 580 ml -45 ml -6 ml HAYES DANIELS MD Sep 18, 2016 08:57
[2016-09-18] MEDS: PANTOPRAZOLE IV PUSH 40 MG VIAL. IVP SCH (09:17)
--- NOTE | 2016-09-18 09:31 | RAD ---
Exam performed: Supine upright views of the abdomen. History: Follow-up small bowel structure. Date of service: 09/18/16. Comparison: Single view abdomen KUB from 09/13/16. Findings: Supine and upright views of the abdomen demonstrates moderate gaseous distention of the small and large bowel loops extending all the way up to the rectum. There is a vertical row of skin cesario in the midline abdomen. Drainage catheter is seen in the pelvis. The abnormal calcification. No gross pneumoperitoneum. Impression: Moderate gaseous distention of the small and large bowel loops throughout the abdomen likely representing ileus pattern. Follow-up exams may be obtained to ensure interval resolution.
[2016-09-18 10:42] LABS: % EOS 1 % (0-5)
[2016-09-18 10:43] LABS: PLT ESTIMATE ADEQUATE (ADEQUATE); POLYCHROMASIA SLIGHT
--- NOTE | 2016-09-18 10:52 | PDOC ---
Infectious Disease Note Subjective Subjective Feeling better No fever lst 24 hours Pain controlled. LIMOUSINE RENTAL CLERK pump TPN ROS ROS GEN: Denies fevers, chills, sweats HEENT: Denies blurred vision, sore throat CV: Denies chest pain RESP: Denies shortness of air, cough GI: Denies n/v/d NEURO: Denies confusion, dizziness MSK: Denies weakness, joint pain/swelling Vital Sign Vital Signs Vital Signs Date Time Temp Pulse Resp B/P Pulse Ox O2 Delivery O2 Flow Rate FiO2 09/18/16 07:45 Room Air 09/18/16 07:00 98.6 108 20 135/93 97 98.6 09/17/16 15:00 2.0 Physical Exam PHYSICAL EXAM GENERAL: NAD, Alert HEENT: PERRL, OC/OP NECK: Supple, no JVD, no LN LUNGS: Clear HEART: S1S2, no gallop, no murmur ABD: Soft, NT, no organomegaly, no rebound EXT: No edema, no cyanosis PHARMACEUTICAL OFFICER: Alert, oriented x 3, no focal neurologic deficit SKIN: No rash IV: ok Labs Lab Laboratory Tests Test 09/18/16 06:30 White Blood Count 10.7x10^3/uL (4.0-11.0) Red Blood Count 3.02x10^6/uL (4.30-5.70) Hemoglobin 9.0g/dL (13.0-17.5) Hematocrit 27.2% (39.0-53.0) Mean Corpuscular Volume 90fL (79-100) Mean Corpuscular Hemoglobin 30pg (25-35) Mean Corpuscular Hemoglobin Concent 33g/dL (31-37) Red Cell Distribution Width 13.1% (11.5-14.5) Platelet Count 310x10^3/uL (140-400) Neutrophils (%) (Auto) 76% (31-73) Lymphocytes (%) (Auto) 16% (24-48) Monocytes (%) (Auto) 6% (0-9) Eosinophils (%) (Auto) 1% (0-3) Basophils (%) (Auto) 1% (0-3) Neutrophils # (Auto) 8.2x10^3uL (1.8-7.7) Lymphocytes # (Auto) 1.7x10^3/uL (1.0-4.8) Monocytes # (Auto) 0.7x10^3/uL (0.0-1.1) Eosinophils # (Auto) 0.1x10^3/uL (0.0-0.7) Basophils # (Auto) 0.1x10^3/uL (0.0-0.2) Segmented Neutrophils % 80% (35-66) Band Neutrophils % 1% (0-9) Lymphocytes % 16% (24-48) Monocytes % 2% (0-10) Eosinophils % 1% (0-5) Platelet Estimate Adequate (ADEQUATE) Polychromasia Slight Sodium Level 137mmol/L (136-145) Potassium Level 3.7mmol/L (3.5-5.1) Chloride Level 100mmol/L (98-107) Carbon Dioxide Level 28mmol/L (21-32) Anion Gap 9 (6-14) Blood Urea Nitrogen 7mg/dL (8-26) Creatinine 0.6mg/dL (0.7-1.3) Estimated GFR (Cockcroft-Gault) 173.6 BUN/Creatinine Ratio 12 (6-20) Glucose Level 137mg/dL (70-99) Calcium Level 8.3mg/dL (8.5-10.1) Phosphorus Level 3.3mg/dL (2.6-4.7) Magnesium Level 2.0mg/dL (1.8-2.4) Total Bilirubin 1.0mg/dL (0.2-1.0) Aspartate Amino Transf (AST/SGOT) 21U/L (15-37) Alanine Aminotransferase (ALT/SGPT) 52U/L (16-63) Alkaline Phosphatase 146U/L (46-116) Total Protein 6.3g/dL (6.4-8.2) Albumin 2.1g/dL (3.4-5.0) Albumin/Globulin Ratio 0.5 (1.0-1.7) Objective Assessment Fever Leukocytosis. better Perforated viscous -on Zosyn initially but changed to Meropenem 09/04 -s/p Exp lap, VANESSA, appendectomy, right proctoscopy and drain, 09/13. E. coli Intra-abdominal abscesses - s/p [address] 09/04 - E. coli x 2 spp, Strep anginosis & bacteroides. Likely has Crohns disease Plan Plan of Care Meropenem and fluconazole am labs Monitor temp d/w JAMAICA OSCAR MD Sep 18, 2016 10:52
[2016-09-18 11:00] VITALS: BP 136/93
[2016-09-18] MEDS: FLUCONAZOLE 400MG/200ML PREMIX 200 ML IV SCH (11:43)
[2016-09-18] MEDS: TPN PER PHARMACY MC PRN (12:44)
[2016-09-18 15:00] VITALS: BP 132/96
[2016-09-18] MEDS: ENOXAPARIN 40 MG/0.4 ML DISP.SYRIN. SQ SCH (15:05)
[2016-09-18] MEDS: HYDROMORPHONE STANDARD PCA 30 ML IV PRN (15:19)
--- NOTE | 2016-09-18 17:35 | PDOC ---
SURGICAL PROGRESS NOTE Subjective seen earlier today had some emesis earlier, none since passing a little gas Vital Signs Vital Signs Date Time Temp Pulse Resp B/P Pulse Ox O2 Delivery O2 Flow Rate FiO2 09/18/16 16:00 Room Air 09/18/16 15:00 98.3 114 18 132/96 97 98.3 09/17/16 15:00 2.0 I&O Intake and Output 09/18/16 07:00 Intake Total 780 ml Output Total 251 ml Balance 529 ml Intake Oral 480 ml IV Total 300 ml Output Urine Total 200 ml Drainage Total 51 ml PATIENT HAS A BAKER: No General: Alert, Oriented X3, Cooperative, No acute distress Abdomen: Soft, Other (mildy distended) Labs Laboratory Tests Test 09/18/16 06:30 White Blood Count 10.7x10^3/uL (4.0-11.0) Red Blood Count 3.02x10^6/uL (4.30-5.70) Hemoglobin 9.0g/dL (13.0-17.5) Hematocrit 27.2% (39.0-53.0) Mean Corpuscular Volume 90fL (79-100) Mean Corpuscular Hemoglobin 30pg (25-35) Mean Corpuscular Hemoglobin Concent 33g/dL (31-37) Red Cell Distribution Width 13.1% (11.5-14.5) Platelet Count 310x10^3/uL (140-400) Neutrophils (%) (Auto) 76% (31-73) Lymphocytes (%) (Auto) 16% (24-48) Monocytes (%) (Auto) 6% (0-9) Eosinophils (%) (Auto) 1% (0-3) Basophils (%) (Auto) 1% (0-3) Neutrophils # (Auto) 8.2x10^3uL (1.8-7.7) Lymphocytes # (Auto) 1.7x10^3/uL (1.0-4.8) Monocytes # (Auto) 0.7x10^3/uL (0.0-1.1) Eosinophils # (Auto) 0.1x10^3/uL (0.0-0.7) Basophils # (Auto) 0.1x10^3/uL (0.0-0.2) Segmented Neutrophils % 80% (35-66) Band Neutrophils % 1% (0-9) Lymphocytes % 16% (24-48) Monocytes % 2% (0-10) Eosinophils % 1% (0-5) Platelet Estimate Adequate (ADEQUATE) Polychromasia Slight Sodium Level 137mmol/L (136-145) Potassium Level 3.7mmol/L (3.5-5.1) Chloride Level 100mmol/L (98-107) Carbon Dioxide Level 28mmol/L (21-32) Anion Gap 9 (6-14) Blood Urea Nitrogen 7mg/dL (8-26) Creatinine 0.6mg/dL (0.7-1.3) Estimated GFR (Cockcroft-Gault) 173.6 BUN/Creatinine Ratio 12 (6-20) Glucose Level 137mg/dL (70-99) Calcium Level 8.3mg/dL (8.5-10.1) Phosphorus Level 3.3mg/dL (2.6-4.7) Magnesium Level 2.0mg/dL (1.8-2.4) Total Bilirubin 1.0mg/dL (0.2-1.0) Aspartate Amino Transf (AST/SGOT) 21U/L (15-37) Alanine Aminotransferase (ALT/SGPT) 52U/L (16-63) Alkaline Phosphatase 146U/L (46-116) Total Protein 6.3g/dL (6.4-8.2) Albumin 2.1g/dL (3.4-5.0) Albumin/Globulin Ratio 0.5 (1.0-1.7) Laboratory Tests Test 09/18/16 06:30 White Blood Count 10.7x10^3/uL (4.0-11.0) Red Blood Count 3.02x10^6/uL (4.30-5.70) Hemoglobin 9.0g/dL (13.0-17.5) Hematocrit 27.2% (39.0-53.0) Mean Corpuscular Volume 90fL (79-100) Mean Corpuscular Hemoglobin 30pg (25-35) Mean Corpuscular Hemoglobin Concent 33g/dL (31-37) Red Cell Distribution Width 13.1% (11.5-14.5) Platelet Count 310x10^3/uL (140-400) Neutrophils (%) (Auto) 76% (31-73) Lymphocytes (%) (Auto) 16% (24-48) Monocytes (%) (Auto) 6% (0-9) Eosinophils (%) (Auto) 1% (0-3) Basophils (%) (Auto) 1% (0-3) Neutrophils # (Auto) 8.2x10^3uL (1.8-7.7) Lymphocytes # (Auto) 1.7x10^3/uL (1.0-4.8) Monocytes # (Auto) 0.7x10^3/uL (0.0-1.1) Eosinophils # (Auto) 0.1x10^3/uL (0.0-0.7) Basophils # (Auto) 0.1x10^3/uL (0.0-0.2) Segmented Neutrophils % 80% (35-66) Band Neutrophils % 1% (0-9) Lymphocytes % 16% (24-48) Monocytes % 2% (0-10) Eosinophils % 1% (0-5) Platelet Estimate Adequate (ADEQUATE) Polychromasia Slight Sodium Level 137mmol/L (136-145) Potassium Level 3.7mmol/L (3.5-5.1) Chloride Level 100mmol/L (98-107) Carbon Dioxide Level 28mmol/L (21-32) Anion Gap 9 (6-14) Blood Urea Nitrogen 7mg/dL (8-26) Creatinine 0.6mg/dL (0.7-1.3) Estimated GFR (Cockcroft-Gault) 173.6 BUN/Creatinine Ratio 12 (6-20) Glucose Level 137mg/dL (70-99) Calcium Level 8.3mg/dL (8.5-10.1) Phosphorus Level 3.3mg/dL (2.6-4.7) Magnesium Level 2.0mg/dL (1.8-2.4) Total Bilirubin 1.0mg/dL (0.2-1.0) Aspartate Amino Transf (AST/SGOT) 21U/L (15-37) Alanine Aminotransferase (ALT/SGPT) 52U/L (16-63) Alkaline Phosphatase 146U/L (46-116) Total Protein 6.3g/dL (6.4-8.2) Albumin 2.1g/dL (3.4-5.0) Albumin/Globulin Ratio 0.5 (1.0-1.7) I have reviewed the following plain films of the abdomen consistent with expected ileus Problem List Problems Medical Problems: (1) Abdominal abscess Status: Acute (2) Abdominal pain Status: Acute (3) Pneumoperitoneum Status: Acute Assessment/Plan POD 5 ex lap, drainage abscess.. continue to increase activity await return of bowel function Problems: RODRIGUE LÓPEZ MD Sep 18, 2016 17:34
[2016-09-18 19:00] VITALS: BP 138/103
[2016-09-18] MEDS ORDERED: DEXTROSE 70% IV SCH ×10 (22:00)
[2016-09-18] MEDS ORDERED: TOTAL PARENTERAL NUTRITION IV SCH ×10 (22:00)
[2016-09-18] MEDS ORDERED: [UNRECOGNIZED DRUG - OTHER] IV SCH ×10 (22:00)
[2016-09-18] MEDS ORDERED: AMINO ACIDS IV SCH ×10 (22:00)
[2016-09-18 23:00] VITALS: BP_SYST 139
[2016-09-19] VITALS (7 sets, daily range): BP systolic 129–137; BP diastolic 88–98
[2016-09-19] MEDS: METOPROLOL TARTRATE 5 MG/5 ML VIAL. IVP SCH ×4 (00:18→17:47)
[2016-09-19] MEDS: MEROPENEM 1 GM in IV NORMAL SALINE 100ML 100 ML IV SCH ×3 (06:15→22:21)
[2016-09-19] MEDS: PANTOPRAZOLE IV PUSH 40 MG VIAL. IVP SCH (08:42)
--- NOTE | 2016-09-19 09:14 | PDOC ---
AASHISH LEYVA DEPOT AGENT 09/19/16 0914: SURGICAL PROGRESS NOTE Subjective some flatus pain managed no n/v Vital Signs Vital Signs Date Time Temp Pulse Resp B/P Pulse Ox O2 Delivery O2 Flow Rate FiO2 09/19/16 07:00 98.8 98 18 134/98 98 Room Air 98.8 I&O Intake and Output 09/19/16 07:00 Output Total 950 ml Balance -950 ml Output Urine Total 950 ml General: Alert, Oriented X3, Cooperative, No acute distress Abdomen: Soft, Other (wound clean, pato removed, minimal drainage, drains in place) Labs Laboratory Tests Test 09/18/16 06:30 White Blood Count 10.7x10^3/uL (4.0-11.0) Red Blood Count 3.02x10^6/uL (4.30-5.70) Hemoglobin 9.0g/dL (13.0-17.5) Hematocrit 27.2% (39.0-53.0) Mean Corpuscular Volume 90fL (79-100) Mean Corpuscular Hemoglobin 30pg (25-35) Mean Corpuscular Hemoglobin Concent 33g/dL (31-37) Red Cell Distribution Width 13.1% (11.5-14.5) Platelet Count 310x10^3/uL (140-400) Neutrophils (%) (Auto) 76% (31-73) Lymphocytes (%) (Auto) 16% (24-48) Monocytes (%) (Auto) 6% (0-9) Eosinophils (%) (Auto) 1% (0-3) Basophils (%) (Auto) 1% (0-3) Neutrophils # (Auto) 8.2x10^3uL (1.8-7.7) Lymphocytes # (Auto) 1.7x10^3/uL (1.0-4.8) Monocytes # (Auto) 0.7x10^3/uL (0.0-1.1) Eosinophils # (Auto) 0.1x10^3/uL (0.0-0.7) Basophils # (Auto) 0.1x10^3/uL (0.0-0.2) Segmented Neutrophils % 80% (35-66) Band Neutrophils % 1% (0-9) Lymphocytes % 16% (24-48) Monocytes % 2% (0-10) Eosinophils % 1% (0-5) Platelet Estimate Adequate (ADEQUATE) Polychromasia Slight Sodium Level 137mmol/L (136-145) Potassium Level 3.7mmol/L (3.5-5.1) Chloride Level 100mmol/L (98-107) Carbon Dioxide Level 28mmol/L (21-32) Anion Gap 9 (6-14) Blood Urea Nitrogen 7mg/dL (8-26) Creatinine 0.6mg/dL (0.7-1.3) Estimated GFR (Cockcroft-Gault) 173.6 BUN/Creatinine Ratio 12 (6-20) Glucose Level 137mg/dL (70-99) Calcium Level 8.3mg/dL (8.5-10.1) Phosphorus Level 3.3mg/dL (2.6-4.7) Magnesium Level 2.0mg/dL (1.8-2.4) Total Bilirubin 1.0mg/dL (0.2-1.0) Aspartate Amino Transf (AST/SGOT) 21U/L (15-37) Alanine Aminotransferase (ALT/SGPT) 52U/L (16-63) Alkaline Phosphatase 146U/L (46-116) Total Protein 6.3g/dL (6.4-8.2) Albumin 2.1g/dL (3.4-5.0) Albumin/Globulin Ratio 0.5 (1.0-1.7) Problem List Problems Medical Problems: (1) Abdominal abscess Status: Acute (2) Abdominal pain Status: Acute (3) Pneumoperitoneum Status: Acute Assessment/Plan s/p xlap drainage of abscess pato out, wound dry, if having drainage pack wound between cesario with nugauze , d/w nurse sips of clears/ice chips Problems: RODRIGUE LÓPEZ MD 09/19/16 1308: SURGICAL PROGRESS NOTE Assessment/Plan pt seen and examined needs to get out of bed and ambulate will start clear liquids Problems: AASHISH LEYVA APRN Sep 19, 2016 09:14 RODRIGUE LÓPEZ MD Sep 19, 2016 13:08
--- NOTE | 2016-09-19 10:06 | PDOC ---
Infectious Disease Note Subjective Subjective Feeling better No fever lst 24 hours Pain controlled. SWITCHBOARD OPERATOR RECEPTIONIST pump TPN ROS ROS GEN: Denies fevers, chills, sweats HEENT: Denies blurred vision, sore throat CV: Denies chest pain RESP: Denies shortness of air, cough GI: Denies n/v/d NEURO: Denies confusion, dizziness MSK: Denies weakness, joint pain/swelling Vital Sign Vital Signs Vital Signs Date Time Temp Pulse Resp B/P Pulse Ox O2 Delivery O2 Flow Rate FiO2 09/19/16 07:00 98.8 98 18 134/98 98 Room Air 98.8 Physical Exam PHYSICAL EXAM GENERAL: NAD, Alert HEENT: PERRL, OC/OP NECK: Supple, no JVD, no LN LUNGS: Clear HEART: S1S2, no gallop, no murmur ABD: Soft, NT, no organomegaly, no rebound,, incision looks good EXT: No edema, no cyanosis DOCUMENT REVIEWER: Alert, oriented x 3, no focal neurologic deficit SKIN: No rash IV: ok Objective Assessment Fever Leukocytosis. better Perforated viscous -on Zosyn initially but changed to Meropenem 09/04 -s/p Exp lap, VANESSA, appendectomy, right proctoscopy and drain, 09/13. E. coli Intra-abdominal abscesses - s/p [address] 09/04 - E. coli x 2 spp, Strep anginosis & bacteroides. Likely has Crohns disease Plan Plan of Care Meropenem and fluconazole am labs Monitor temp d/w JAMAICA Jimenez MD Sep 19, 2016 10:06
[2016-09-19] MEDS: FLUCONAZOLE 400MG/200ML PREMIX 200 ML IV SCH (12:14)
--- NOTE | 2016-09-19 12:33 | PDOC ---
PROGRESS NOTES Chief Complaint Chief Complaint Abdominal pain ASSESSMENT AND PLAN: 1. Abdominal abscess w/ perforated viscus: s/p drain placements 09/04, 09/11; s/ p rigid proctoscopy, exploratory laparotomy, VANESSA, appendectomy 09/13. on Diflucan and merrem. strongly suspect underlying Crohn's dz 2. pain control: dilaudid REHEAT FURNACE OPERATOR, minimizing use 3. Sepsis: resolved. remains on Abx (see above) 4. Severe malnutrition: TPN 5. Dehydration: resolved, on IVF/TPN 6. Tachycardia: HR normalizing finally 7. DVT prophylaxis: Lovenox Vitals Vitals Vital Signs Date Time Temp Pulse Resp B/P Pulse Ox O2 Delivery O2 Flow Rate FiO2 09/19/16 12:15 86 137/89 09/19/16 11:00 98.7 18 98 Room Air 98.7 Physical Exam Physical Exam flat affect General: Alert, Oriented X3, Cooperative, No acute distress Heart: Regular rate, Normal S1, Normal S2, No murmurs Lungs: Clear Abdomen: Soft, Other (surgical incisions covered with gauze; drains in place) Extremities: No cyanosis, No edema Skin: No rashes Review of Systems Review of Systems feels better today. pain improved. Comment Review of Relevant HAYES DANIELS MD Sep 19, 2016 12:33
[2016-09-19] MEDS: TPN PER PHARMACY MC PRN (13:57)
[2016-09-19] MEDS: ENOXAPARIN 40 MG/0.4 ML DISP.SYRIN. SQ SCH (14:49)
[2016-09-19] MEDS: ONDANSETRON PF 4 MG/2 ML VIAL. IV PRN (21:23)
[2016-09-19] MEDS ORDERED: TOTAL PARENTERAL NUTRITION IV SCH ×10 (22:00)
[2016-09-19] MEDS ORDERED: [UNRECOGNIZED DRUG - OTHER] IV SCH ×10 (22:00)
[2016-09-19] MEDS ORDERED: DEXTROSE 70% IV SCH ×10 (22:00)
[2016-09-19] MEDS ORDERED: AMINO ACIDS IV SCH ×10 (22:00)
[2016-09-20] MEDS: METOPROLOL TARTRATE 5 MG/5 ML VIAL. IVP SCH ×5 (00:26→23:28)
[2016-09-20 03:14] VITALS: BP 132/81
[2016-09-20 05:07] LABS: CALCIUM 8.5 mg/dL (8.5-10.1); CREATININE 0.5 mg/dL (0.7-1.3); GFR 214.2; MAGNESIUM 1.6 mg/dL (1.8-2.4); PHOSPHORUS 3.9 mg/dL (2.6-4.7); POTASSIUM 3.6 mmol/L (3.5-5.1)
[2016-09-20] MEDS: MEROPENEM 1 GM in IV NORMAL SALINE 100ML 100 ML IV SCH ×3 (06:10→22:35)
[2016-09-20 07:15] VITALS: BP 122/84
[2016-09-20] MEDS: PANTOPRAZOLE IV PUSH 40 MG VIAL. IVP SCH (08:49)
--- NOTE | 2016-09-20 10:13 | PDOC ---
Infectious Disease Note Subjective Subjective Feeling better No fever lst 24 hours Pain controlled. MARKETING RESEARCH INTERN pump TPN ROS ROS GEN: Denies fevers, chills, sweats HEENT: Denies blurred vision, sore throat CV: Denies chest pain RESP: Denies shortness of air, cough GI: Denies n/v/d NEURO: Denies confusion, dizziness MSK: Denies weakness, joint pain/swelling Vital Sign Vital Signs Vital Signs Date Time Temp Pulse Resp B/P Pulse Ox O2 Delivery O2 Flow Rate FiO2 09/20/16 07:15 97.7 71 16 122/84 98 Room Air 97.7 09/19/16 19:00 2.0 Physical Exam PHYSICAL EXAM GENERAL: NAD, Alert HEENT: PERRL, OC/OP NECK: Supple, no JVD, no LN LUNGS: Clear HEART: S1S2, no gallop, no murmur ABD: Soft, NT, no organomegaly, no rebound EXT: No edema, no cyanosis ARTILLERY METEOROLOGICAL MAN: Alert, oriented x 3, no focal neurologic deficit SKIN: No rash IV: ok Labs Lab Laboratory Tests Test 09/20/16 04:15 Sodium Level 137mmol/L (136-145) Potassium Level 3.6mmol/L (3.5-5.1) Chloride Level 100mmol/L (98-107) Carbon Dioxide Level 28mmol/L (21-32) Anion Gap 9 (6-14) Blood Urea Nitrogen 6mg/dL (8-26) Creatinine 0.5mg/dL (0.7-1.3) Estimated GFR (Cockcroft-Gault) 214.2 Glucose Level 107mg/dL (70-99) Calcium Level 8.5mg/dL (8.5-10.1) Phosphorus Level 3.9mg/dL (2.6-4.7) Magnesium Level 1.6mg/dL (1.8-2.4) Triglycerides Level 106mg/dL (0-150) Objective Assessment Fever Leukocytosis. better Perforated viscous -on Zosyn initially but changed to Meropenem 09/04 -s/p Exp lap, VANESSA, appendectomy, right proctoscopy and drain, 09/13. E. coli Intra-abdominal abscesses - s/p [address] 09/04 - E. coli x 2 spp, Strep anginosis & bacteroides. Likely has Crohns disease Plan Plan of Care Meropenem and fluconazole am labs Monitor temp JAMAICA JCAOBSON MD Sep 20, 2016 10:13
--- NOTE | 2016-09-20 10:47 | PDOC ---
PROGRESS NOTES Chief Complaint Chief Complaint Abdominal pain ASSESSMENT AND PLAN: 1. Abdominal abscess w/ perforated viscus: s/p drain placements 09/04, 09/11; s/ p rigid proctoscopy, exploratory laparotomy, VANESSA, appendectomy 09/13. on Diflucan and merrem. strongly suspect underlying Crohn's dz. drain management as per Dr Scott 2. pain control: dilaudid OTC CLERK. will stop, switch to PRN dosing. 3. Sepsis: resolved. remains on Abx (see above) 4. Severe malnutrition: TPN. start PO feeds when ok by surg team (no BM yet, no flatus - start reglan) 5. Dehydration: resolved, on IVF/TPN 6. Tachycardia: resolved 7. DVT prophylaxis: Lovenox Vitals Vitals Vital Signs Date Time Temp Pulse Resp B/P Pulse Ox O2 Delivery O2 Flow Rate FiO2 09/20/16 08:10 Room Air 09/20/16 07:15 97.7 71 16 122/84 98 97.7 09/19/16 19:00 2.0 Physical Exam Physical Exam flat affect General: Alert, Oriented X3, Cooperative, No acute distress Heart: Regular rate, Normal S1, Normal S2, No murmurs Lungs: Clear Abdomen: Soft, Other (surgical incisions covered with gauze; drains in place) Extremities: No cyanosis, No edema Skin: No rashes Labs LABS Laboratory Tests Test 09/20/16 04:15 Sodium Level 137mmol/L (136-145) Potassium Level 3.6mmol/L (3.5-5.1) Chloride Level 100mmol/L (98-107) Carbon Dioxide Level 28mmol/L (21-32) Anion Gap 9 (6-14) Blood Urea Nitrogen 6mg/dL (8-26) Creatinine 0.5mg/dL (0.7-1.3) Estimated GFR (Cockcroft-Gault) 214.2 Glucose Level 107mg/dL (70-99) Calcium Level 8.5mg/dL (8.5-10.1) Phosphorus Level 3.9mg/dL (2.6-4.7) Magnesium Level 1.6mg/dL (1.8-2.4) Triglycerides Level 106mg/dL (0-150) Review of Systems Review of Systems feels ok, HAYES Smith MD Sep 20, 2016 10:47
[2016-09-20] MEDS ORDERED: LORAZEPAM 2 MG/ML VIAL IV PRN (11:00)
[2016-09-20] MEDS ORDERED: HYDROMORPHONE 2 MG/ML VIAL. IVP PRN (11:00)
[2016-09-20 11:18] VITALS: BP 129/91
[2016-09-20] MEDS: FLUCONAZOLE 400MG/200ML PREMIX 200 ML IV SCH (11:46)
[2016-09-20] MEDS: TPN PER PHARMACY MC PRN (12:33)
[2016-09-20] MEDS: ENOXAPARIN 40 MG/0.4 ML DISP.SYRIN. SQ SCH (13:39)
[2016-09-20] MEDS: METOCLOPRAMIDE HCL 10 MG/2 ML VIAL. IV SCH ×2 (13:39→22:36)
[2016-09-20 14:55] VITALS: BP 131/91
--- NOTE | 2016-09-20 15:36 | PDOC ---
SURGICAL PROGRESS NOTE Subjective sleepy took some clears but then had some emesis Vital Signs Vital Signs Date Time Temp Pulse Resp B/P Pulse Ox O2 Delivery O2 Flow Rate FiO2 09/20/16 14:55 98.4 72 18 131/91 96 Room Air 98.4 09/19/16 19:00 2.0 I&O Intake and Output 09/20/16 07:00 Intake Total 0 ml Output Total 2490 ml Balance -2490 ml Intake Oral 0 ml Output Urine Total 1620 ml Emesis 800 ml Drainage Total 70 ml PATIENT HAS A BAKER: No General: Other (sleepy, arouses easily) Abdomen: Soft, Other (distended, tympanitic, minimally TTP) Labs Laboratory Tests Test 09/20/16 04:15 Sodium Level 137mmol/L (136-145) Potassium Level 3.6mmol/L (3.5-5.1) Chloride Level 100mmol/L (98-107) Carbon Dioxide Level 28mmol/L (21-32) Anion Gap 9 (6-14) Blood Urea Nitrogen 6mg/dL (8-26) Creatinine 0.5mg/dL (0.7-1.3) Estimated GFR (Cockcroft-Gault) 214.2 Glucose Level 107mg/dL (70-99) Calcium Level 8.5mg/dL (8.5-10.1) Phosphorus Level 3.9mg/dL (2.6-4.7) Magnesium Level 1.6mg/dL (1.8-2.4) Triglycerides Level 106mg/dL (0-150) Laboratory Tests Test 09/20/16 04:15 Sodium Level 137mmol/L (136-145) Potassium Level 3.6mmol/L (3.5-5.1) Chloride Level 100mmol/L (98-107) Carbon Dioxide Level 28mmol/L (21-32) Anion Gap 9 (6-14) Blood Urea Nitrogen 6mg/dL (8-26) Creatinine 0.5mg/dL (0.7-1.3) Estimated GFR (Cockcroft-Gault) 214.2 Glucose Level 107mg/dL (70-99) Calcium Level 8.5mg/dL (8.5-10.1) Phosphorus Level 3.9mg/dL (2.6-4.7) Magnesium Level 1.6mg/dL (1.8-2.4) Triglycerides Level 106mg/dL (0-150) Problem List Problems Medical Problems: (1) Abdominal abscess Status: Acute (2) Abdominal pain Status: Acute (3) Pneumoperitoneum Status: Acute Assessment/Plan s/p ex lap expected ileus continue TPN, ambulate, minimize narcotic pain meds Problems: RODRIGUE LÓPEZ MD Sep 20, 2016 15:36
[2016-09-20 19:00] VITALS: BP 137/72
[2016-09-20] MEDS ORDERED: TOTAL PARENTERAL NUTRITION IV SCH ×10 (22:00)
[2016-09-20] MEDS ORDERED: AMINO ACIDS IV SCH ×10 (22:00)
[2016-09-20] MEDS ORDERED: [UNRECOGNIZED DRUG - OTHER] IV SCH ×10 (22:00)
[2016-09-20] MEDS ORDERED: DEXTROSE 70% IV SCH ×10 (22:00)
[2016-09-20 22:46] VITALS: BP 140/92
[2016-09-21] MEDS ORDERED: HYDROMORPHONE STANDARD PCA 30 ML IV ONE (00:42)
[2016-09-21 04:45] LABS: BASO # 0.1 x10^3/uL (0.0-0.2); BASO % 1 % (0-3); EOS % 1 % (0-3); HEMATOCRIT 28.6 % (39.0-53.0); HEMOGLOBIN 9.5 g/dL (13.0-17.5); LYMPH # 1.5 x10^3/uL (1.0-4.8); LYMPH % 13 % (24-48); MEAN CORPUSCULAR HEMOGLOBIN 30 pg (25-35); MEAN CORPUSCULAR HGB CONC 33 g/dL (31-37); MEAN CORPUSCULAR VOLUME 90 fL (79-100); MONO % 6 % (0-9); NEUT % 80 % (31-73); PLATELET COUNT 378 x10^3/uL (140-400); RED BLOOD COUNT 3.16 x10^6/uL (4.30-5.70); RED CELL DISTRIBUTION WIDTH 13.5 % (11.5-14.5); WHITE BLOOD COUNT 11.2 x10^3/uL (4.0-11.0)
[2016-09-21 05:04] LABS: ALBUMIN 2.4 g/dL (3.4-5.0); ALBUMIN/GLOBULIN RATIO 0.5 (1.0-1.7); CALCIUM 8.6 mg/dL (8.5-10.1); CREATININE 0.5 mg/dL (0.7-1.3); GFR 214.2; MAGNESIUM 1.8 mg/dL (1.8-2.4); POTASSIUM 3.8 mmol/L (3.5-5.1); TOTAL BILIRUBIN 0.6 mg/dL (0.2-1.0); TOTAL PROTEIN 6.8 g/dL (6.4-8.2)
[2016-09-21] MEDS: MEROPENEM 1 GM in IV NORMAL SALINE 100ML 100 ML IV SCH ×3 (05:25→21:34)
[2016-09-21] MEDS: METOCLOPRAMIDE HCL 10 MG/2 ML VIAL. IV SCH ×3 (06:11→21:34)
[2016-09-21] MEDS: METOPROLOL TARTRATE 5 MG/5 ML VIAL. IVP SCH ×4 (06:16→23:58)
[2016-09-21 07:15] VITALS: BP 142/100
[2016-09-21] MEDS: PANTOPRAZOLE IV PUSH 40 MG VIAL. IVP SCH (07:59)
--- NOTE | 2016-09-21 09:17 | PDOC ---
AASHISH LEYVA PROJECT MANAGEMENT SPECIALIST 09/21/16 0917: SURGICAL PROGRESS NOTE Subjective taking some clears no emesis ambulated some this AM Vital Signs Vital Signs Date Time Temp Pulse Resp B/P Pulse Ox O2 Delivery O2 Flow Rate FiO2 09/21/16 07:15 98.5 101 18 142/100 98 Room Air 98.5 I&O Intake and Output 09/21/16 07:00 Intake Total 2236 ml Output Total 680 ml Balance 1556 ml Intake Oral 920 ml Other 1316 ml Output Urine Total 650 ml Drainage Total 30 ml PATIENT HAS A BAKER: No General: Alert, Oriented X3, Cooperative, No acute distress Abdomen: Soft, Other (wound clean, drains in place) Labs Laboratory Tests Test 09/20/16 04:15 09/21/16 04:35 Sodium Level 137mmol/L (136-145) 135mmol/L (136-145) Potassium Level 3.6mmol/L (3.5-5.1) 3.8mmol/L (3.5-5.1) Chloride Level 100mmol/L (98-107) 99mmol/L (98-107) Carbon Dioxide Level 28mmol/L (21-32) 27mmol/L (21-32) Anion Gap 9 (6-14) 9 (6-14) Blood Urea Nitrogen 6mg/dL (8-26) 6mg/dL (8-26) Creatinine 0.5mg/dL (0.7-1.3) 0.5mg/dL (0.7-1.3) Estimated GFR (Cockcroft-Gault) 214.2 214.2 Glucose Level 107mg/dL (70-99) 136mg/dL (70-99) Calcium Level 8.5mg/dL (8.5-10.1) 8.6mg/dL (8.5-10.1) Phosphorus Level 3.9mg/dL (2.6-4.7) Magnesium Level 1.6mg/dL (1.8-2.4) 1.8mg/dL (1.8-2.4) Triglycerides Level 106mg/dL (0-150) White Blood Count 11.2x10^3/uL (4.0-11.0) Red Blood Count 3.16x10^6/uL (4.30-5.70) Hemoglobin 9.5g/dL (13.0-17.5) Hematocrit 28.6% (39.0-53.0) Mean Corpuscular Volume 90fL (79-100) Mean Corpuscular Hemoglobin 30pg (25-35) Mean Corpuscular Hemoglobin Concent 33g/dL (31-37) Red Cell Distribution Width 13.5% (11.5-14.5) Platelet Count 378x10^3/uL (140-400) Neutrophils (%) (Auto) 80% (31-73) Lymphocytes (%) (Auto) 13% (24-48) Monocytes (%) (Auto) 6% (0-9) Eosinophils (%) (Auto) 1% (0-3) Basophils (%) (Auto) 1% (0-3) Neutrophils # (Auto) 8.9x10^3uL (1.8-7.7) Lymphocytes # (Auto) 1.5x10^3/uL (1.0-4.8) Monocytes # (Auto) 0.6x10^3/uL (0.0-1.1) Eosinophils # (Auto) 0.1x10^3/uL (0.0-0.7) Basophils # (Auto) 0.1x10^3/uL (0.0-0.2) BUN/Creatinine Ratio 12 (6-20) Total Bilirubin 0.6mg/dL (0.2-1.0) Aspartate Amino Transf (AST/SGOT) 26U/L (15-37) Alanine Aminotransferase (ALT/SGPT) 59U/L (16-63) Alkaline Phosphatase 143U/L (46-116) Total Protein 6.8g/dL (6.4-8.2) Albumin 2.4g/dL (3.4-5.0) Albumin/Globulin Ratio 0.5 (1.0-1.7) Laboratory Tests Test 09/21/16 04:35 White Blood Count 11.2x10^3/uL (4.0-11.0) Red Blood Count 3.16x10^6/uL (4.30-5.70) Hemoglobin 9.5g/dL (13.0-17.5) Hematocrit 28.6% (39.0-53.0) Mean Corpuscular Volume 90fL (79-100) Mean Corpuscular Hemoglobin 30pg (25-35) Mean Corpuscular Hemoglobin Concent 33g/dL (31-37) Red Cell Distribution Width 13.5% (11.5-14.5) Platelet Count 378x10^3/uL (140-400) Neutrophils (%) (Auto) 80% (31-73) Lymphocytes (%) (Auto) 13% (24-48) Monocytes (%) (Auto) 6% (0-9) Eosinophils (%) (Auto) 1% (0-3) Basophils (%) (Auto) 1% (0-3) Neutrophils # (Auto) 8.9x10^3uL (1.8-7.7) Lymphocytes # (Auto) 1.5x10^3/uL (1.0-4.8) Monocytes # (Auto) 0.6x10^3/uL (0.0-1.1) Eosinophils # (Auto) 0.1x10^3/uL (0.0-0.7) Basophils # (Auto) 0.1x10^3/uL (0.0-0.2) Sodium Level 135mmol/L (136-145) Potassium Level 3.8mmol/L (3.5-5.1) Chloride Level 99mmol/L (98-107) Carbon Dioxide Level 27mmol/L (21-32) Anion Gap 9 (6-14) Blood Urea Nitrogen 6mg/dL (8-26) Creatinine 0.5mg/dL (0.7-1.3) Estimated GFR (Cockcroft-Gault) 214.2 BUN/Creatinine Ratio 12 (6-20) Glucose Level 136mg/dL (70-99) Calcium Level 8.6mg/dL (8.5-10.1) Magnesium Level 1.8mg/dL (1.8-2.4) Total Bilirubin 0.6mg/dL (0.2-1.0) Aspartate Amino Transf (AST/SGOT) 26U/L (15-37) Alanine Aminotransferase (ALT/SGPT) 59U/L (16-63) Alkaline Phosphatase 143U/L (46-116) Total Protein 6.8g/dL (6.4-8.2) Albumin 2.4g/dL (3.4-5.0) Albumin/Globulin Ratio 0.5 (1.0-1.7) Problem List Problems Medical Problems: (1) Abdominal abscess Status: Acute (2) Abdominal pain Status: Acute (3) Pneumoperitoneum Status: Acute Assessment/Plan s/p xlap clears, minimize narcs, ambulate continue TPN Problems: RODRIGUE LÓPEZ MD 09/21/16 1627: SURGICAL PROGRESS NOTE Assessment/Plan pt seen and examined agree with above needs to ambulate more Problems: AASHISH LEYVA APRN Sep 21, 2016 09:17 RODRIGUE LÓPEZ MD Sep 21, 2016 16:27
[2016-09-21 10:56] VITALS: BP 133/92
[2016-09-21] MEDS: FLUCONAZOLE 400MG/200ML PREMIX 200 ML IV SCH (11:16)
[2016-09-21] MEDS: ENOXAPARIN 40 MG/0.4 ML DISP.SYRIN. SQ SCH (12:05)
--- NOTE | 2016-09-21 13:02 | PDOC ---
PROGRESS NOTES Chief Complaint Chief Complaint Abdominal pain ASSESSMENT AND PLAN: 1. Abdominal abscess w/ perforated viscus: s/p drain placements 09/04, 09/11; s/ p rigid proctoscopy, exploratory laparotomy, VANESSA, appendectomy 09/13. on Diflucan and merrem. strongly suspect underlying Crohn's dz. drain management as per Dr Scott; drain to suction w/o O/P since 09/19 2. pain control: dilaudid PRN 3. Sepsis: resolved. remains on Abx (see above) 4. Severe malnutrition: TPN. clear liquids this AM, but w/ vomiting x1. cont current protocol 5. Dehydration: resolved, on IVF/TPN 6. Tachycardia: resolved 7. DVT prophylaxis: Lovenox 8. Dispo: pending better PO intake and surgical clearance Vitals Vitals Vital Signs Date Time Temp Pulse Resp B/P Pulse Ox O2 Delivery O2 Flow Rate FiO2 09/21/16 12:05 117 133/92 09/21/16 10:56 98.2 18 98 Room Air 98.2 Physical Exam General: Alert, Oriented X3, Cooperative, No acute distress Heart: Regular rate, Normal S1, Normal S2, No murmurs Lungs: Clear Abdomen: Soft, Other (wound clean, drains in place) Extremities: No cyanosis, No edema Skin: No rashes Labs LABS Laboratory Tests Test 09/21/16 04:35 White Blood Count 11.2x10^3/uL (4.0-11.0) Red Blood Count 3.16x10^6/uL (4.30-5.70) Hemoglobin 9.5g/dL (13.0-17.5) Hematocrit 28.6% (39.0-53.0) Mean Corpuscular Volume 90fL (79-100) Mean Corpuscular Hemoglobin 30pg (25-35) Mean Corpuscular Hemoglobin Concent 33g/dL (31-37) Red Cell Distribution Width 13.5% (11.5-14.5) Platelet Count 378x10^3/uL (140-400) Neutrophils (%) (Auto) 80% (31-73) Lymphocytes (%) (Auto) 13% (24-48) Monocytes (%) (Auto) 6% (0-9) Eosinophils (%) (Auto) 1% (0-3) Basophils (%) (Auto) 1% (0-3) Neutrophils # (Auto) 8.9x10^3uL (1.8-7.7) Lymphocytes # (Auto) 1.5x10^3/uL (1.0-4.8) Monocytes # (Auto) 0.6x10^3/uL (0.0-1.1) Eosinophils # (Auto) 0.1x10^3/uL (0.0-0.7) Basophils # (Auto) 0.1x10^3/uL (0.0-0.2) Sodium Level 135mmol/L (136-145) Potassium Level 3.8mmol/L (3.5-5.1) Chloride Level 99mmol/L (98-107) Carbon Dioxide Level 27mmol/L (21-32) Anion Gap 9 (6-14) Blood Urea Nitrogen 6mg/dL (8-26) Creatinine 0.5mg/dL (0.7-1.3) Estimated GFR (Cockcroft-Gault) 214.2 BUN/Creatinine Ratio 12 (6-20) Glucose Level 136mg/dL (70-99) Calcium Level 8.6mg/dL (8.5-10.1) Magnesium Level 1.8mg/dL (1.8-2.4) Total Bilirubin 0.6mg/dL (0.2-1.0) Aspartate Amino Transf (AST/SGOT) 26U/L (15-37) Alanine Aminotransferase (ALT/SGPT) 59U/L (16-63) Alkaline Phosphatase 143U/L (46-116) Total Protein 6.8g/dL (6.4-8.2) Albumin 2.4g/dL (3.4-5.0) Albumin/Globulin Ratio 0.5 (1.0-1.7) Review of Systems Review of Systems feels ok, vomiting x1 after breakfast at about 10AM. on clears HAYES DANIELS MD Sep 21, 2016 13:02
[2016-09-21] MEDS: TPN PER PHARMACY MC PRN (14:31)
[2016-09-21 14:59] VITALS: BP 138/100
[2016-09-21 19:00] VITALS: BP 145/99
[2016-09-21] MEDS ORDERED: AMINO ACIDS IV SCH ×10 (22:00)
[2016-09-21] MEDS ORDERED: [UNRECOGNIZED DRUG - OTHER] IV SCH ×10 (22:00)
[2016-09-21] MEDS ORDERED: DEXTROSE 70% IV SCH ×10 (22:00)
[2016-09-21] MEDS ORDERED: TOTAL PARENTERAL NUTRITION IV SCH ×10 (22:00)
[2016-09-21 23:00] VITALS: BP 141/104
[2016-09-22 04:33] VITALS: BP 130/91
[2016-09-22] MEDS: MEROPENEM 1 GM in IV NORMAL SALINE 100ML 100 ML IV SCH ×3 (05:09→22:34)
[2016-09-22] MEDS: METOCLOPRAMIDE HCL 10 MG/2 ML VIAL. IV SCH ×3 (05:10→22:35)
[2016-09-22 05:13] LABS: BASO % 0 % (0-3); EOS % 1 % (0-3); HEMATOCRIT 28.5 % (39.0-53.0); HEMOGLOBIN 9.6 g/dL (13.0-17.5); LYMPH # 1.6 x10^3/uL (1.0-4.8); LYMPH % 14 % (24-48); MEAN CORPUSCULAR HEMOGLOBIN 30 pg (25-35); MEAN CORPUSCULAR HGB CONC 34 g/dL (31-37); MEAN CORPUSCULAR VOLUME 88 fL (79-100); MONO % 6 % (0-9); NEUT % 79 % (31-73); PLATELET COUNT 454 x10^3/uL (140-400); RED BLOOD COUNT 3.25 x10^6/uL (4.30-5.70); RED CELL DISTRIBUTION WIDTH 13.9 % (11.5-14.5); WHITE BLOOD COUNT 11.4 x10^3/uL (4.0-11.0)
[2016-09-22 05:57] LABS: CALCIUM 8.7 mg/dL (8.5-10.1); CREATININE 0.5 mg/dL (0.7-1.3); GFR 214.2; MAGNESIUM 1.7 mg/dL (1.8-2.4); PHOSPHORUS 4.1 mg/dL (2.6-4.7); POTASSIUM 3.3 mmol/L (3.5-5.1)
[2016-09-22] MEDS: METOPROLOL TARTRATE 5 MG/5 ML VIAL. IVP SCH ×3 (06:00→17:57)
[2016-09-22 07:00] VITALS: BP 134/96
[2016-09-22] MEDS: PANTOPRAZOLE IV PUSH 40 MG VIAL. IVP SCH (08:02)
--- NOTE | 2016-09-22 09:05 | PDOC ---
AASHISH LEYVA LOOM DOFFER 09/22/16 0905: SURGICAL PROGRESS NOTE Subjective tolerating clears + flatus, no stool ambulating a little more Vital Signs Vital Signs Date Time Temp Pulse Resp B/P Pulse Ox O2 Delivery O2 Flow Rate FiO2 09/22/16 07:00 98.7 114 18 134/96 98 Room Air 98.7 I&O Intake and Output 09/22/16 07:00 Intake Total 2356 ml Output Total 2215 ml Balance 141 ml Intake Oral 540 ml Other 1816 ml Output Urine Total 1975 ml Emesis 150 ml Chest Tube Drainage Total 40 ml Drainage Total 50 ml General: Alert, Oriented X3, Cooperative, No acute distress Abdomen: Soft, No tenderness, Other (dressing dry) Labs Laboratory Tests Test 09/21/16 04:35 09/22/16 05:00 White Blood Count 11.2x10^3/uL (4.0-11.0) 11.4x10^3/uL (4.0-11.0) Red Blood Count 3.16x10^6/uL (4.30-5.70) 3.25x10^6/uL (4.30-5.70) Hemoglobin 9.5g/dL (13.0-17.5) 9.6g/dL (13.0-17.5) Hematocrit 28.6% (39.0-53.0) 28.5% (39.0-53.0) Mean Corpuscular Volume 90fL (79-100) 88fL (79-100) Mean Corpuscular Hemoglobin 30pg (25-35) 30pg (25-35) Mean Corpuscular Hemoglobin Concent 33g/dL (31-37) 34g/dL (31-37) Red Cell Distribution Width 13.5% (11.5-14.5) 13.9% (11.5-14.5) Platelet Count 378x10^3/uL (140-400) 454x10^3/uL (140-400) Neutrophils (%) (Auto) 80% (31-73) 79% (31-73) Lymphocytes (%) (Auto) 13% (24-48) 14% (24-48) Monocytes (%) (Auto) 6% (0-9) 6% (0-9) Eosinophils (%) (Auto) 1% (0-3) 1% (0-3) Basophils (%) (Auto) 1% (0-3) 0% (0-3) Neutrophils # (Auto) 8.9x10^3uL (1.8-7.7) 9.0x10^3uL (1.8-7.7) Lymphocytes # (Auto) 1.5x10^3/uL (1.0-4.8) 1.6x10^3/uL (1.0-4.8) Monocytes # (Auto) 0.6x10^3/uL (0.0-1.1) 0.7x10^3/uL (0.0-1.1) Eosinophils # (Auto) 0.1x10^3/uL (0.0-0.7) 0.1x10^3/uL (0.0-0.7) Basophils # (Auto) 0.1x10^3/uL (0.0-0.2) 0.0x10^3/uL (0.0-0.2) Sodium Level 135mmol/L (136-145) 135mmol/L (136-145) Potassium Level 3.8mmol/L (3.5-5.1) 3.3mmol/L (3.5-5.1) Chloride Level 99mmol/L (98-107) 98mmol/L (98-107) Carbon Dioxide Level 27mmol/L (21-32) 28mmol/L (21-32) Anion Gap 9 (6-14) 9 (6-14) Blood Urea Nitrogen 6mg/dL (8-26) 5mg/dL (8-26) Creatinine 0.5mg/dL (0.7-1.3) 0.5mg/dL (0.7-1.3) Estimated GFR (Cockcroft-Gault) 214.2 214.2 BUN/Creatinine Ratio 12 (6-20) Glucose Level 136mg/dL (70-99) 128mg/dL (70-99) Calcium Level 8.6mg/dL (8.5-10.1) 8.7mg/dL (8.5-10.1) Magnesium Level 1.8mg/dL (1.8-2.4) 1.7mg/dL (1.8-2.4) Total Bilirubin 0.6mg/dL (0.2-1.0) Aspartate Amino Transf (AST/SGOT) 26U/L (15-37) Alanine Aminotransferase (ALT/SGPT) 59U/L (16-63) Alkaline Phosphatase 143U/L (46-116) Total Protein 6.8g/dL (6.4-8.2) Albumin 2.4g/dL (3.4-5.0) Albumin/Globulin Ratio 0.5 (1.0-1.7) Phosphorus Level 4.1mg/dL (2.6-4.7) Laboratory Tests Test 09/22/16 05:00 White Blood Count 11.4x10^3/uL (4.0-11.0) Red Blood Count 3.25x10^6/uL (4.30-5.70) Hemoglobin 9.6g/dL (13.0-17.5) Hematocrit 28.5% (39.0-53.0) Mean Corpuscular Volume 88fL (79-100) Mean Corpuscular Hemoglobin 30pg (25-35) Mean Corpuscular Hemoglobin Concent 34g/dL (31-37) Red Cell Distribution Width 13.9% (11.5-14.5) Platelet Count 454x10^3/uL (140-400) Neutrophils (%) (Auto) 79% (31-73) Lymphocytes (%) (Auto) 14% (24-48) Monocytes (%) (Auto) 6% (0-9) Eosinophils (%) (Auto) 1% (0-3) Basophils (%) (Auto) 0% (0-3) Neutrophils # (Auto) 9.0x10^3uL (1.8-7.7) Lymphocytes # (Auto) 1.6x10^3/uL (1.0-4.8) Monocytes # (Auto) 0.7x10^3/uL (0.0-1.1) Eosinophils # (Auto) 0.1x10^3/uL (0.0-0.7) Basophils # (Auto) 0.0x10^3/uL (0.0-0.2) Sodium Level 135mmol/L (136-145) Potassium Level 3.3mmol/L (3.5-5.1) Chloride Level 98mmol/L (98-107) Carbon Dioxide Level 28mmol/L (21-32) Anion Gap 9 (6-14) Blood Urea Nitrogen 5mg/dL (8-26) Creatinine 0.5mg/dL (0.7-1.3) Estimated GFR (Cockcroft-Gault) 214.2 Glucose Level 128mg/dL (70-99) Calcium Level 8.7mg/dL (8.5-10.1) Phosphorus Level 4.1mg/dL (2.6-4.7) Magnesium Level 1.7mg/dL (1.8-2.4) Problem List Problems Medical Problems: (1) Abdominal abscess Status: Acute (2) Abdominal pain Status: Acute (3) Pneumoperitoneum Status: Acute Assessment/Plan s/p xlap supportive care Problems: RODRIGUE LÓPEZ MD 09/22/16 1105: SURGICAL PROGRESS NOTE Assessment/Plan pt seen and examined minimal output in [place] drain will remove it so easier to ambulate passing a little gas 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
--- NOTE | 2016-09-22 09:31 | PDOC ---
Infectious Disease Note Subjective Subjective Feeling better No fever lst 24 hours Pain controlled. 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 ROS ROS GEN: Denies fevers, chills, sweats HEENT: Denies blurred vision, sore throat CV: Denies chest pain RESP: Denies shortness of air, cough GI: Denies n/v/d NEURO: Denies confusion, dizziness MSK: Denies weakness, joint pain/swelling Vital Sign Vital Signs Vital Signs Date Time Temp Pulse Resp B/P Pulse Ox O2 Delivery O2 Flow Rate FiO2 09/22/16 07:00 98.7 114 18 134/96 98 Room Air 98.7 Physical Exam PHYSICAL EXAM GENERAL: NAD, Alert HEENT: PERRL, OC/OP NECK: Supple, no JVD, no LN LUNGS: Clear HEART: S1S2, no gallop, no murmur ABD: Soft, NT, no organomegaly, no rebound,, incision slightly EXT: No edema, no cyanosis 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, 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 x 3, no focal neurologic deficit SKIN: No rash IV: ok Labs Lab Laboratory Tests Test 09/22/16 05:00 White Blood Count 11.4x10^3/uL (4.0-11.0) Red Blood Count 3.25x10^6/uL (4.30-5.70) Hemoglobin 9.6g/dL (13.0-17.5) Hematocrit 28.5% (39.0-53.0) Mean Corpuscular Volume 88fL (79-100) Mean Corpuscular Hemoglobin 30pg (25-35) Mean Corpuscular Hemoglobin Concent 34g/dL (31-37) Red Cell Distribution Width 13.9% (11.5-14.5) Platelet Count 454x10^3/uL (140-400) Neutrophils (%) (Auto) 79% (31-73) Lymphocytes (%) (Auto) 14% (24-48) Monocytes (%) (Auto) 6% (0-9) Eosinophils (%) (Auto) 1% (0-3) Basophils (%) (Auto) 0% (0-3) Neutrophils # (Auto) 9.0x10^3uL (1.8-7.7) Lymphocytes # (Auto) 1.6x10^3/uL (1.0-4.8) Monocytes # (Auto) 0.7x10^3/uL (0.0-1.1) Eosinophils # (Auto) 0.1x10^3/uL (0.0-0.7) Basophils # (Auto) 0.0x10^3/uL (0.0-0.2) Sodium Level 135mmol/L (136-145) Potassium Level 3.3mmol/L (3.5-5.1) Chloride Level 98mmol/L (98-107) Carbon Dioxide Level 28mmol/L (21-32) Anion Gap 9 (6-14) Blood Urea Nitrogen 5mg/dL (8-26) Creatinine 0.5mg/dL (0.7-1.3) Estimated GFR (Cockcroft-Gault) 214.2 Glucose Level 128mg/dL (70-99) Calcium Level 8.7mg/dL (8.5-10.1) Phosphorus Level 4.1mg/dL (2.6-4.7) Magnesium Level 1.7mg/dL (1.8-2.4) Objective Assessment Fever Leukocytosis. better Perforated viscous -on Zosyn initially but changed to Meropenem 09/04 -s/p Exp lap, VANESSA, appendectomy, right proctoscopy and drain, 09/13. E. coli Intra-abdominal abscesses - s/p [address] 09/04 - E. coli x 2 spp, Strep anginosis & bacteroides. Likely has Crohns disease Plan Plan of Care Meropenem and fluconazole am labs Monitor temp JAMAICA JACOBSON MD Sep 22, 2016 09:31
--- NOTE | 2016-09-22 09:51 | PDOC ---
PROGRESS NOTES Chief Complaint Chief Complaint Abdominal pain ASSESSMENT AND PLAN: 1. Abdominal abscess w/ perforated viscus: s/p drain placements 09/04, 09/11; s/ p rigid proctoscopy, exploratory laparotomy, VANESSA, appendectomy 09/13. strongly suspect underlying Crohn's dz. drain management as per Dr Scott; drain to suction w/o O/P since 09/19 2. pain control: dilaudid PRN 3. Sepsis: resolved. remains on Diflucan and merrem 4. Severe malnutrition: TPN. tolerating smalll amounts of clears. advance diet to full liquids 5. Dehydration: resolved, on IVF/TPN 6. Tachycardia: resolved 7. DVT prophylaxis: Lovenox 8. Dispo: pending better PO intake and surgical clearance Vitals Vitals Vital Signs Date Time Temp Pulse Resp B/P Pulse Ox O2 Delivery O2 Flow Rate FiO2 09/22/16 07:00 98.7 114 18 134/96 98 Room Air 98.7 Physical Exam General: Alert, Oriented X3, Cooperative, No acute distress Heart: Regular rate, Normal S1, Normal S2, No murmurs Lungs: Clear Abdomen: Soft, No tenderness, Other (dressing dry) Extremities: No cyanosis, No edema Skin: No rashes Labs LABS Laboratory Tests Test 09/22/16 05:00 White Blood Count 11.4x10^3/uL (4.0-11.0) Red Blood Count 3.25x10^6/uL (4.30-5.70) Hemoglobin 9.6g/dL (13.0-17.5) Hematocrit 28.5% (39.0-53.0) Mean Corpuscular Volume 88fL (79-100) Mean Corpuscular Hemoglobin 30pg (25-35) Mean Corpuscular Hemoglobin Concent 34g/dL (31-37) Red Cell Distribution Width 13.9% (11.5-14.5) Platelet Count 454x10^3/uL (140-400) Neutrophils (%) (Auto) 79% (31-73) Lymphocytes (%) (Auto) 14% (24-48) Monocytes (%) (Auto) 6% (0-9) Eosinophils (%) (Auto) 1% (0-3) Basophils (%) (Auto) 0% (0-3) Neutrophils # (Auto) 9.0x10^3uL (1.8-7.7) Lymphocytes # (Auto) 1.6x10^3/uL (1.0-4.8) Monocytes # (Auto) 0.7x10^3/uL (0.0-1.1) Eosinophils # (Auto) 0.1x10^3/uL (0.0-0.7) Basophils # (Auto) 0.0x10^3/uL (0.0-0.2) Sodium Level 135mmol/L (136-145) Potassium Level 3.3mmol/L (3.5-5.1) Chloride Level 98mmol/L (98-107) Carbon Dioxide Level 28mmol/L (21-32) Anion Gap 9 (6-14) Blood Urea Nitrogen 5mg/dL (8-26) Creatinine 0.5mg/dL (0.7-1.3) Estimated GFR (Cockcroft-Gault) 214.2 Glucose Level 128mg/dL (70-99) Calcium Level 8.7mg/dL (8.5-10.1) Phosphorus Level 4.1mg/dL (2.6-4.7) Magnesium Level 1.7mg/dL (1.8-2.4) Review of Systems Review of Systems no N/V, but not very hungry. no BM since yesterday AM HAYES DANIELS MD Sep 22, 2016 09:51
[2016-09-22 10:55] VITALS: BP 134/92
[2016-09-22] MEDS ORDERED: OXYCODONE/APAP 5/325 TABLET. PO PRN (11:15)
[2016-09-22] MEDS: FLUCONAZOLE 400MG/200ML PREMIX 200 ML IV SCH (11:48)
[2016-09-22] MEDS: TPN PER PHARMACY MC PRN (12:13)
[2016-09-22] MEDS ORDERED: MAGNESIUM SULFATE 2GM 50 ML IV ONE (13:00)
[2016-09-22] MEDS: ENOXAPARIN 40 MG/0.4 ML DISP.SYRIN. SQ SCH (13:11)
[2016-09-22] MEDS: POTASSIUM CHLORIDE 10MEQ 100 ML IV SCH ×4 (13:11→21:00)
[2016-09-22 15:29] VITALS: BP 130/91
[2016-09-22] MEDS: ONDANSETRON PF 4 MG/2 ML VIAL. IV PRN (17:56)
[2016-09-22 19:59] VITALS: BP 135/98
[2016-09-22] MEDS: ACETAMINOPHEN 325 MG TABLET. PO PRN (20:22)
[2016-09-22] MEDS ORDERED: DEXTROSE 70% IV SCH ×10 (22:00)
[2016-09-22] MEDS ORDERED: AMINO ACIDS IV SCH ×10 (22:00)
[2016-09-22] MEDS ORDERED: TOTAL PARENTERAL NUTRITION IV SCH ×10 (22:00)
[2016-09-22] MEDS ORDERED: [UNRECOGNIZED DRUG - OTHER] IV SCH ×10 (22:00)
[2016-09-22 23:59] VITALS: BP 129/87
[2016-09-23 03:59] VITALS: BP 124/80
[2016-09-23] MEDS: ACETAMINOPHEN 325 MG TABLET. PO PRN (04:18)
[2016-09-23] MEDS: METOCLOPRAMIDE HCL 10 MG/2 ML VIAL. IV SCH ×2 (06:20→14:00)
[2016-09-23] MEDS: METOPROLOL TARTRATE 5 MG/5 ML VIAL. IVP SCH ×4 (06:20→17:42)
[2016-09-23] MEDS: MEROPENEM 1 GM in IV NORMAL SALINE 100ML 100 ML IV SCH ×3 (06:21→22:34)
[2016-09-23 07:00] VITALS: BP 116/74
[2016-09-23 07:29] LABS: CALCIUM 8.3 mg/dL (8.5-10.1); CREATININE 0.6 mg/dL (0.7-1.3); GFR 173.6; MAGNESIUM 1.9 mg/dL (1.8-2.4); POTASSIUM 4.4 mmol/L (3.5-5.1)
[2016-09-23 07:41] LABS: BASO % 0 % (0-3); EOS % 1 % (0-3); HEMATOCRIT 28.8 % (39.0-53.0); HEMOGLOBIN 9.5 g/dL (13.0-17.5); LYMPH # 1.3 x10^3/uL (1.0-4.8); LYMPH % 9 % (24-48); MEAN CORPUSCULAR HEMOGLOBIN 30 pg (25-35); MEAN CORPUSCULAR HGB CONC 33 g/dL (31-37); MEAN CORPUSCULAR VOLUME 90 fL (79-100); MONO % 4 % (0-9); NEUT % 85 % (31-73); PLATELET COUNT 463 x10^3/uL (140-400); RED BLOOD COUNT 3.21 x10^6/uL (4.30-5.70); RED CELL DISTRIBUTION WIDTH 13.7 % (11.5-14.5); WHITE BLOOD COUNT 14.2 x10^3/uL (4.0-11.0)
[2016-09-23] MEDS: PANTOPRAZOLE IV PUSH 40 MG VIAL. IVP SCH (08:09)
--- NOTE | 2016-09-23 10:51 | PDOC ---
Infectious Disease Note Subjective Subjective Feeling pretty good Ambulating in the [place] earlier Low-grade fevers, Tmax 100.9 [place] increase abdominal pain Bowels moving Tolerating full liquid diet TPN ROS ROS GEN: Denies chills, sweats CV: Denies chest pain RESP: Denies shortness of air, cough GI: Denies n/v/d Vital Sign Vital Signs Vital Signs Date Time Temp Pulse Resp B/P Pulse Ox O2 Delivery O2 Flow Rate FiO2 09/23/16 08:15 Room Air 09/23/16 07:00 98.8 88 18 116/74 99 98.8 Physical Exam PHYSICAL EXAM GENERAL: Walking back to bed, NAD HEENT: OC/OP pink and moist NECK: Supple LUNGS: Clear HEART: S1S2, no gallop, no murmur ABD: Round, BS present, soft, NT to light palpation. Incisional edges , cesario intact. No redness or drainage. [place] x1 intact. 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 clean Labs Lab Laboratory Tests Test 09/23/16 07:00 White Blood Count 14.2x10^3/uL (4.0-11.0) Red Blood Count 3.21x10^6/uL (4.30-5.70) Hemoglobin 9.5g/dL (13.0-17.5) Hematocrit 28.8% (39.0-53.0) Mean Corpuscular Volume 90fL (79-100) Mean Corpuscular Hemoglobin 30pg (25-35) Mean Corpuscular Hemoglobin Concent 33g/dL (31-37) Red Cell Distribution Width 13.7% (11.5-14.5) Platelet Count 463x10^3/uL (140-400) Neutrophils (%) (Auto) 85% (31-73) Lymphocytes (%) (Auto) 9% (24-48) Monocytes (%) (Auto) 4% (0-9) Eosinophils (%) (Auto) 1% (0-3) Basophils (%) (Auto) 0% (0-3) Neutrophils # (Auto) 12.1x10^3uL (1.8-7.7) Lymphocytes # (Auto) 1.3x10^3/uL (1.0-4.8) Monocytes # (Auto) 0.6x10^3/uL (0.0-1.1) Eosinophils # (Auto) 0.2x10^3/uL (0.0-0.7) Basophils # (Auto) 0.0x10^3/uL (0.0-0.2) Sodium Level 139mmol/L (136-145) Potassium Level 4.4mmol/L (3.5-5.1) Chloride Level 103mmol/L (98-107) Carbon Dioxide Level 26mmol/L (21-32) Anion Gap 10 (6-14) Blood Urea Nitrogen 5mg/dL (8-26) Creatinine 0.6mg/dL (0.7-1.3) Estimated GFR (Cockcroft-Gault) 173.6 Glucose Level 108mg/dL (70-99) Calcium Level 8.3mg/dL (8.5-10.1) Magnesium Level 1.9mg/dL (1.8-2.4) Objective Assessment Fever. - but states he is actually feeling well Leukocytosis. Trending up Perforated viscous -on Zosyn initially but changed to Meropenem 09/04 -s/p Exp lap, VANESSA, appendectomy, right proctoscopy and drain, 09/13. E. coli Intra-abdominal abscesses - s/p [address] 09/04 - E. coli x 2 spp, Strep anginosis & bacteroides. Likely has Crohn's disease Plan Plan of Care Meropenem and fluconazole f/u am labs Monitor temp D/w father Attending Co-Sign Attending Co-Sign The patient was seen and interviewed as well as examined at the bedside. The chart was reviewed. The case was discussed. Agree with the plan of care. JOHAN MEYER APRN Sep 23, 2016 10:51 MIRIAM ORTEZ MD Sep 23, 2016 13:18
[2016-09-23 11:24] VITALS: BP 125/88
[2016-09-23] MEDS: FLUCONAZOLE 400MG/200ML PREMIX 200 ML IV SCH (11:39)
--- NOTE | 2016-09-23 12:20 | PDOC ---
PROGRESS NOTES Chief Complaint Chief Complaint Abdominal pain - perf.ed viscus ASSESSMENT AND PLAN: 1. Abdominal abscess w/ perforated viscus: s/p drain placements 09/04, 09/11; s/ p rigid proctoscopy, exploratory laparotomy, VANESSA, appendectomy 09/13. strongly suspect underlying Crohn's dz. drain management as per Dr Scott; 2. pain control: dilaudid PRN. hardly any need 3. Sepsis: resolved. remains on Diflucan and merrem as per ID service 4. Severe malnutrition: tolerating full liquids, advance to reg diet. wean TPN 5. Dehydration: resolved, on IVF/TPN 6. Tachycardia: resolved 7. DVT prophylaxis: Lovenox 8. Dispo: poss home in AM Vitals Vitals Vital Signs Date Time Temp Pulse Resp B/P Pulse Ox O2 Delivery O2 Flow Rate FiO2 09/23/16 11:24 98.2 130 18 125/88 97 Room Air 98.2 Physical Exam General: Alert, Oriented X3, Cooperative, No acute distress Heart: Regular rate, No murmurs Lungs: Clear Abdomen: Normal bowel sounds, Soft, No tenderness, Other (dressing dry) Extremities: No cyanosis, No edema Skin: No rashes Labs LABS Laboratory Tests Test 09/23/16 07:00 White Blood Count 14.2x10^3/uL (4.0-11.0) Red Blood Count 3.21x10^6/uL (4.30-5.70) Hemoglobin 9.5g/dL (13.0-17.5) Hematocrit 28.8% (39.0-53.0) Mean Corpuscular Volume 90fL (79-100) Mean Corpuscular Hemoglobin 30pg (25-35) Mean Corpuscular Hemoglobin Concent 33g/dL (31-37) Red Cell Distribution Width 13.7% (11.5-14.5) Platelet Count 463x10^3/uL (140-400) Neutrophils (%) (Auto) 85% (31-73) Lymphocytes (%) (Auto) 9% (24-48) Monocytes (%) (Auto) 4% (0-9) Eosinophils (%) (Auto) 1% (0-3) Basophils (%) (Auto) 0% (0-3) Neutrophils # (Auto) 12.1x10^3uL (1.8-7.7) Lymphocytes # (Auto) 1.3x10^3/uL (1.0-4.8) Monocytes # (Auto) 0.6x10^3/uL (0.0-1.1) Eosinophils # (Auto) 0.2x10^3/uL (0.0-0.7) Basophils # (Auto) 0.0x10^3/uL (0.0-0.2) Sodium Level 139mmol/L (136-145) Potassium Level 4.4mmol/L (3.5-5.1) Chloride Level 103mmol/L (98-107) Carbon Dioxide Level 26mmol/L (21-32) Anion Gap 10 (6-14) Blood Urea Nitrogen 5mg/dL (8-26) Creatinine 0.6mg/dL (0.7-1.3) Estimated GFR (Cockcroft-Gault) 173.6 Glucose Level 108mg/dL (70-99) Calcium Level 8.3mg/dL (8.5-10.1) Magnesium Level 1.9mg/dL (1.8-2.4) Review of Systems Review of Systems walking w/o difficulties. looking forward to going home soon. +BM. no nausea HAYES DANIELS MD Sep 23, 2016 12:20
[2016-09-23] MEDS: TPN PER PHARMACY MC PRN (12:54)
[2016-09-23] MEDS: ENOXAPARIN 40 MG/0.4 ML DISP.SYRIN. SQ SCH (14:27)
[2016-09-23 15:18] VITALS: BP 130/93
--- NOTE | 2016-09-23 19:41 | PDOC ---
SURGICAL PROGRESS NOTE Subjective Sebas was seen earlier this AM doing better tolerating po pain improved Vital Signs Vital Signs Date Time Temp Pulse Resp B/P Pulse Ox O2 Delivery O2 Flow Rate FiO2 09/23/16 17:42 137 145/95 09/23/16 15:18 98.3 18 98 Room Air 98.3 I&O Intake and Output 09/23/16 07:00 Intake Total 860 ml Output Total 1800 ml Balance -940 ml Intake Oral 860 ml Output Urine Total 1800 ml PATIENT HAS A BAKER: No General: Alert, Oriented X3, Cooperative, No acute distress Abdomen: Soft, Other ([place] with small amount of serosanguineous drainage) Labs Laboratory Tests Test 09/22/16 05:00 09/23/16 07:00 White Blood Count 11.4x10^3/uL (4.0-11.0) 14.2x10^3/uL (4.0-11.0) Red Blood Count 3.25x10^6/uL (4.30-5.70) 3.21x10^6/uL (4.30-5.70) Hemoglobin 9.6g/dL (13.0-17.5) 9.5g/dL (13.0-17.5) Hematocrit 28.5% (39.0-53.0) 28.8% (39.0-53.0) Mean Corpuscular Volume 88fL (79-100) 90fL (79-100) Mean Corpuscular Hemoglobin 30pg (25-35) 30pg (25-35) Mean Corpuscular Hemoglobin Concent 34g/dL (31-37) 33g/dL (31-37) Red Cell Distribution Width 13.9% (11.5-14.5) 13.7% (11.5-14.5) Platelet Count 454x10^3/uL (140-400) 463x10^3/uL (140-400) Neutrophils (%) (Auto) 79% (31-73) 85% (31-73) Lymphocytes (%) (Auto) 14% (24-48) 9% (24-48) Monocytes (%) (Auto) 6% (0-9) 4% (0-9) Eosinophils (%) (Auto) 1% (0-3) 1% (0-3) Basophils (%) (Auto) 0% (0-3) 0% (0-3) Neutrophils # (Auto) 9.0x10^3uL (1.8-7.7) 12.1x10^3uL (1.8-7.7) Lymphocytes # (Auto) 1.6x10^3/uL (1.0-4.8) 1.3x10^3/uL (1.0-4.8) Monocytes # (Auto) 0.7x10^3/uL (0.0-1.1) 0.6x10^3/uL (0.0-1.1) Eosinophils # (Auto) 0.1x10^3/uL (0.0-0.7) 0.2x10^3/uL (0.0-0.7) Basophils # (Auto) 0.0x10^3/uL (0.0-0.2) 0.0x10^3/uL (0.0-0.2) Sodium Level 135mmol/L (136-145) 139mmol/L (136-145) Potassium Level 3.3mmol/L (3.5-5.1) 4.4mmol/L (3.5-5.1) Chloride Level 98mmol/L (98-107) 103mmol/L (98-107) Carbon Dioxide Level 28mmol/L (21-32) 26mmol/L (21-32) Anion Gap 9 (6-14) 10 (6-14) Blood Urea Nitrogen 5mg/dL (8-26) 5mg/dL (8-26) Creatinine 0.5mg/dL (0.7-1.3) 0.6mg/dL (0.7-1.3) Estimated GFR (Cockcroft-Gault) 214.2 173.6 Glucose Level 128mg/dL (70-99) 108mg/dL (70-99) Calcium Level 8.7mg/dL (8.5-10.1) 8.3mg/dL (8.5-10.1) Phosphorus Level 4.1mg/dL (2.6-4.7) Magnesium Level 1.7mg/dL (1.8-2.4) 1.9mg/dL (1.8-2.4) Laboratory Tests Test 09/23/16 07:00 White Blood Count 14.2x10^3/uL (4.0-11.0) Red Blood Count 3.21x10^6/uL (4.30-5.70) Hemoglobin 9.5g/dL (13.0-17.5) Hematocrit 28.8% (39.0-53.0) Mean Corpuscular Volume 90fL (79-100) Mean Corpuscular Hemoglobin 30pg (25-35) Mean Corpuscular Hemoglobin Concent 33g/dL (31-37) Red Cell Distribution Width 13.7% (11.5-14.5) Platelet Count 463x10^3/uL (140-400) Neutrophils (%) (Auto) 85% (31-73) Lymphocytes (%) (Auto) 9% (24-48) Monocytes (%) (Auto) 4% (0-9) Eosinophils (%) (Auto) 1% (0-3) Basophils (%) (Auto) 0% (0-3) Neutrophils # (Auto) 12.1x10^3uL (1.8-7.7) Lymphocytes # (Auto) 1.3x10^3/uL (1.0-4.8) Monocytes # (Auto) 0.6x10^3/uL (0.0-1.1) Eosinophils # (Auto) 0.2x10^3/uL (0.0-0.7) Basophils # (Auto) 0.0x10^3/uL (0.0-0.2) Sodium Level 139mmol/L (136-145) Potassium Level 4.4mmol/L (3.5-5.1) Chloride Level 103mmol/L (98-107) Carbon Dioxide Level 26mmol/L (21-32) Anion Gap 10 (6-14) Blood Urea Nitrogen 5mg/dL (8-26) Creatinine 0.6mg/dL (0.7-1.3) Estimated GFR (Cockcroft-Gault) 173.6 Glucose Level 108mg/dL (70-99) Calcium Level 8.3mg/dL (8.5-10.1) Magnesium Level 1.9mg/dL (1.8-2.4) Problem List Problems Medical Problems: (1) Abdominal abscess Status: Acute (2) Abdominal pain Status: Acute (3) Pneumoperitoneum Status: Acute Assessment/Plan improved Problems: RODRIGUE LÓPEZ MD Sep 23, 2016 19:41
[2016-09-23 19:59] VITALS: BP 125/84
[2016-09-23] MEDS ORDERED: [UNRECOGNIZED DRUG - OTHER] IV SCH ×10 (22:00)
[2016-09-23] MEDS ORDERED: DEXTROSE 70% IV SCH ×10 (22:00)
[2016-09-23] MEDS ORDERED: AMINO ACIDS IV SCH ×10 (22:00)
[2016-09-23] MEDS ORDERED: TOTAL PARENTERAL NUTRITION IV SCH ×10 (22:00)
[2016-09-23 23:59] VITALS: BP 124/87
[2016-09-24 03:59] VITALS: BP 130/81
[2016-09-24] MEDS: MEROPENEM 1 GM in IV NORMAL SALINE 100ML 100 ML IV SCH ×2 (06:02→14:25)
[2016-09-24] MEDS: METOPROLOL TARTRATE 5 MG/5 ML VIAL. IVP SCH ×3 (06:03→11:51)
[2016-09-24 07:00] VITALS: BP 118/79
[2016-09-24 07:37] LABS: BASO % 0 % (0-3); EOS % 1 % (0-3); HEMATOCRIT 28.2 % (39.0-53.0); HEMOGLOBIN 9.3 g/dL (13.0-17.5); LYMPH # 1.6 x10^3/uL (1.0-4.8); LYMPH % 16 % (24-48); MEAN CORPUSCULAR HEMOGLOBIN 30 pg (25-35); MEAN CORPUSCULAR HGB CONC 33 g/dL (31-37); MEAN CORPUSCULAR VOLUME 90 fL (79-100); MONO % 6 % (0-9); NEUT % 76 % (31-73); PLATELET COUNT 453 x10^3/uL (140-400); RED BLOOD COUNT 3.12 x10^6/uL (4.30-5.70); WHITE BLOOD COUNT 9.9 x10^3/uL (4.0-11.0)
[2016-09-24] MEDS: PANTOPRAZOLE IV PUSH 40 MG VIAL. IVP SCH (07:58)
--- NOTE | 2016-09-24 10:01 | PDOC ---
Infectious Disease Note Subjective Subjective Tired, didn't sleep well last night but states wasn't tired. Better today and wants to go home No fe er last 24 hours Denies increase abdominal pain Bowels moving Now on regular diet, tolerating well ROS ROS GEN: Denies fevers, chills, sweats HEENT: Denies blurred vision, sore throat CV: Denies chest pain RESP: Denies shortness of air, cough GI: Denies n/v/d NEURO: Denies confusion, dizziness MSK: Denies weakness, joint pain/swelling Vital Sign Vital Signs Vital Signs Date Time Temp Pulse Resp B/P Pulse Ox O2 Delivery O2 Flow Rate FiO2 09/24/16 08:10 Room Air 09/24/16 07:00 98.0 93 18 118/79 98 98.0 09/23/16 20:00 2.0 Physical Exam PHYSICAL EXAM GENERAL: Propped up in bed, alert, NAD, eating HEENT: OC/OP pink and moist NECK: Supple LUNGS: Clear HEART: S1S2, no gallop, no murmur ABD: Round, BS present, soft, NT to light palpation. Incisional edges , cesario intact. No redness or drainage. [place] x1 intact, serosanguineous EXT: No edema, no cyanosis KITCHEN DESIGNER: Alert, oriented x 3, no focal neurologic deficit SKIN: No rash RUE-PICC. clean Labs Lab Laboratory Tests Test 09/24/16 06:00 White Blood Count 9.9x10^3/uL (4.0-11.0) Red Blood Count 3.12x10^6/uL (4.30-5.70) Hemoglobin 9.3g/dL (13.0-17.5) Hematocrit 28.2% (39.0-53.0) Mean Corpuscular Volume 90fL (79-100) Mean Corpuscular Hemoglobin 30pg (25-35) Mean Corpuscular Hemoglobin Concent 33g/dL (31-37) Red Cell Distribution Width 14.0% (11.5-14.5) Platelet Count 453x10^3/uL (140-400) Neutrophils (%) (Auto) 76% (31-73) Lymphocytes (%) (Auto) 16% (24-48) Monocytes (%) (Auto) 6% (0-9) Eosinophils (%) (Auto) 1% (0-3) Basophils (%) (Auto) 0% (0-3) Neutrophils # (Auto) 7.5x10^3uL (1.8-7.7) Lymphocytes # (Auto) 1.6x10^3/uL (1.0-4.8) Monocytes # (Auto) 0.6x10^3/uL (0.0-1.1) Eosinophils # (Auto) 0.1x10^3/uL (0.0-0.7) Basophils # (Auto) 0.0x10^3/uL (0.0-0.2) Objective Assessment Fever. improved Leukocytosis. improved Perforated viscous -on Zosyn initially but changed to Meropenem 09/04 -s/p Exp lap, VANESSA, appendectomy, right proctoscopy and drain, 09/13. E. coli Intra-abdominal abscesses - s/p [address] 09/04 - E. coli x 2 spp, Strep anginosis & bacteroides. Likely has Crohn's disease Plan [employer] Ret[employer] on Augmentin and fluconazole for 10 days Rx written F/u ID office one week [phone] D/w Dr. Hammer D/w JOHAN Suarez APRN Sep 24, 2016 10:00 MIRIAM ORTEZ MD Sep 24, 2016 12:49
[2016-09-24 11:00] VITALS: BP 120/78
[2016-09-24] MEDS: FLUCONAZOLE 400MG/200ML PREMIX 200 ML IV SCH (11:50)
--- NOTE | 2016-09-24 11:54 | PDOC ---
SURGICAL PROGRESS NOTE Subjective no c/o eating, stooling Vital Signs Vital Signs Date Time Temp Pulse Resp B/P Pulse Ox O2 Delivery O2 Flow Rate FiO2 09/24/16 11:51 113 120/78 09/24/16 11:00 98.4 18 98 Room Air 98.4 09/23/16 20:00 2.0 I&O Intake and Output 09/24/16 07:00 Intake Total 960 ml Output Total 645 ml Balance 315 ml Intake Oral 860 ml IV Total 100 ml Output Urine Total 625 ml Drainage Total 20 ml # Voids 2 PATIENT HAS A BAKER: No General: Alert, Oriented X3, No acute distress Abdomen: Soft, Other (minmal serosanguineous output in [place]) Labs Laboratory Tests Test 09/23/16 07:00 09/24/16 06:00 White Blood Count 14.2x10^3/uL (4.0-11.0) 9.9x10^3/uL (4.0-11.0) Red Blood Count 3.21x10^6/uL (4.30-5.70) 3.12x10^6/uL (4.30-5.70) Hemoglobin 9.5g/dL (13.0-17.5) 9.3g/dL (13.0-17.5) Hematocrit 28.8% (39.0-53.0) 28.2% (39.0-53.0) Mean Corpuscular Volume 90fL (79-100) 90fL (79-100) Mean Corpuscular Hemoglobin 30pg (25-35) 30pg (25-35) Mean Corpuscular Hemoglobin Concent 33g/dL (31-37) 33g/dL (31-37) Red Cell Distribution Width 13.7% (11.5-14.5) 14.0% (11.5-14.5) Platelet Count 463x10^3/uL (140-400) 453x10^3/uL (140-400) Neutrophils (%) (Auto) 85% (31-73) 76% (31-73) Lymphocytes (%) (Auto) 9% (24-48) 16% (24-48) Monocytes (%) (Auto) 4% (0-9) 6% (0-9) Eosinophils (%) (Auto) 1% (0-3) 1% (0-3) Basophils (%) (Auto) 0% (0-3) 0% (0-3) Neutrophils # (Auto) 12.1x10^3uL (1.8-7.7) 7.5x10^3uL (1.8-7.7) Lymphocytes # (Auto) 1.3x10^3/uL (1.0-4.8) 1.6x10^3/uL (1.0-4.8) Monocytes # (Auto) 0.6x10^3/uL (0.0-1.1) 0.6x10^3/uL (0.0-1.1) Eosinophils # (Auto) 0.2x10^3/uL (0.0-0.7) 0.1x10^3/uL (0.0-0.7) Basophils # (Auto) 0.0x10^3/uL (0.0-0.2) 0.0x10^3/uL (0.0-0.2) Sodium Level 139mmol/L (136-145) Potassium Level 4.4mmol/L (3.5-5.1) Chloride Level 103mmol/L (98-107) Carbon Dioxide Level 26mmol/L (21-32) Anion Gap 10 (6-14) Blood Urea Nitrogen 5mg/dL (8-26) Creatinine 0.6mg/dL (0.7-1.3) Estimated GFR (Cockcroft-Gault) 173.6 Glucose Level 108mg/dL (70-99) Calcium Level 8.3mg/dL (8.5-10.1) Magnesium Level 1.9mg/dL (1.8-2.4) Laboratory Tests Test 09/24/16 06:00 White Blood Count 9.9x10^3/uL (4.0-11.0) Red Blood Count 3.12x10^6/uL (4.30-5.70) Hemoglobin 9.3g/dL (13.0-17.5) Hematocrit 28.2% (39.0-53.0) Mean Corpuscular Volume 90fL (79-100) Mean Corpuscular Hemoglobin 30pg (25-35) Mean Corpuscular Hemoglobin Concent 33g/dL (31-37) Red Cell Distribution Width 14.0% (11.5-14.5) Platelet Count 453x10^3/uL (140-400) Neutrophils (%) (Auto) 76% (31-73) Lymphocytes (%) (Auto) 16% (24-48) Monocytes (%) (Auto) 6% (0-9) Eosinophils (%) (Auto) 1% (0-3) Basophils (%) (Auto) 0% (0-3) Neutrophils # (Auto) 7.5x10^3uL (1.8-7.7) Lymphocytes # (Auto) 1.6x10^3/uL (1.0-4.8) Monocytes # (Auto) 0.6x10^3/uL (0.0-1.1) Eosinophils # (Auto) 0.1x10^3/uL (0.0-0.7) Basophils # (Auto) 0.0x10^3/uL (0.0-0.2) Problem List Problems Medical Problems: (1) Abdominal abscess Status: Acute (2) Abdominal pain Status: Acute (3) Pneumoperitoneum Status: Acute Assessment/Plan stable home today f/u in a week Problems: RODRIGUE LÓPEZ MD Sep 24, 2016 11:54
[2016-09-24] MEDS: ENOXAPARIN 40 MG/0.4 ML DISP.SYRIN. SQ SCH (13:00)
[2016-09-24 15:00] VITALS: BP 118/82
[2016-09-24] MEDS ORDERED: AMOX1TAB61 PO (16:03)
[2016-09-24] MEDS ORDERED: FLUC200T PO (16:04)
--- NOTE | 2016-09-25 02:48 | DS ---
DATE OF DISCHARGE: 09/24/2016 CHIEF COMPLAINT: Perforated viscus. HOSPITAL COURSE: The patient is a 20-year-old gentleman previously in excellent state of health who presented to the hospital with severe abdominal pain and was found with perforated sigmoid colon. He underwent initially a drain placement for abscesses, later exploratory lap with appendectomy on 09/13/2016. Dr. Scott followed during the entire hospitalization as well. The patient recovered slowly, initially requiring a DECISION UNIT RN with Dilaudid. However, this was successfully weaned off and the patient actually became more and more mobile. For peritonitis and sepsis with multiple organisms, he was kept on IV antibiotics until day of discharge when his antibiotics were changed to Augmentin by ID service. During recovery, when he remained n.p.o., TPN was started. This was weaned off when he started taking regular p.o. PHYSICAL EXAMINATION: VITAL SIGNS: Show blood pressure of 125/88, heart rate of 98, respiratory rate at 18. He is afebrile. GENERAL: This is a 20-year-old [place] gentleman, alert and oriented, no acute distress, pale appearing. HEENT: Shows no scleral icterus. NECK: Supple. LUNGS: Clear to auscultation bilaterally. HEART: Regular rate and rhythm. ABDOMEN: Has positive bowel sounds, well healing incisions. Both drains have been discontinued. EXTREMITIES: Show trace edema. DISCHARGE DATE: 09/24/2016 DISCHARGE DISPOSITION: To home. DISCHARGE CONDITION: Improved. DISCHARGE DIAGNOSES: 1. Perforated sigmoid colon, status post resection and percutaneous drains for abscess drainage. 2. Suspicion for Crohn's disease. DISCHARGE MEDICATIONS: Please refer to [facility]. DISCHARGE INSTRUCTIONS: The patient will follow up with Dr. Scott in one week. He will see his PCP in 2-3 weeks. HAYES DANIELS MD DR: GUALBERTO/nts JOB#: [id number] / [id number] OLGA Ordaz
== END 2016-09-24 18:14 | disposition home or self-care (01) | DRG 853 ==
LOC: ER 17:35 → 5 SOUTH 22:19
PROVIDERS: ADMIT Internal Medicine; ATTEND Internal Medicine
PROC: 0DH67UZ Insertion of Feeding Device into Stomach, Via Natural or Artificial Opening (ICD-10-PCS; 2016-08-30)
PROC: 0W9G30Z Drainage of Peritoneal Cavity with Drainage Device, Percutaneous Approach (ICD-10-PCS; 2016-09-04)
PROC: 02HV33Z Insertion of Infusion Device into Superior Vena Cava, Percutaneous Approach (ICD-10-PCS; 2016-09-04)
PROC: 0DP6XUZ Removal of Feeding Device from Stomach, External Approach (ICD-10-PCS; 2016-09-06)
PROC: 0W9G30Z Drainage of Peritoneal Cavity with Drainage Device, Percutaneous Approach (ICD-10-PCS; 2016-09-11)
PROC: 0DTJ0ZZ Resection of Appendix, Open Approach (ICD-10-PCS; 2016-09-13)
PROC: 0DJD8ZZ Inspection of Lower Intestinal Tract, Via Natural or Artificial Opening Endoscopic (ICD-10-PCS; principal; 2016-09-13 14:00)
DX: A41.9 Sepsis, unspecified organism (principal); E43 Unspecified severe protein-calorie malnutrition; K50.90 Crohn's disease, unspecified, without complications; K56.7 Ileus, unspecified; K57.20 Diverticulitis of large intestine with perforation and abscess without bleeding; K66.8 Other specified disorders of peritoneum; E86.0 Dehydration; K52.9 Noninfective gastroenteritis and colitis, unspecified; E87.5 Hyperkalemia; F41.9 Anxiety disorder, unspecified; Z93.3 Colostomy status
CPT/HCPCS: 36415; 49406; 71010; 74000; 74020; 74177; 80048; 80053; 80202; 81001; 82947; 83605; 83690; 83735; 84100; 84478; 85007; 85027; 85610; 87040; 87071; 87075; 87086; 87186; 87205; 88304; 93005; 93306; 96361; 96374; 96375; 96376; A4215; C1729; C1769; C1892; C9113; J0330; J0610; J1100; J1170; J1450; J1580; J1650; J1885; J1956; J2060; J2185; J2250; J2270; J2405; J2543; J2704; J2710; J2765; J2997; J3010; J3370; J3475; J3480; J3490; J7030; J7040; J7042; J7050; J7060; J7120; P9045; Q0163; Q9966; Q9967; 99285-25